=== PATIENT | male | born 1955 | race Caucasian/White ===

== ENCOUNTER 2018-05-31 11:28 | Emergency (ER) | payer MEDICAID, OTHER ==
--- NOTE | 2018-05-31 11:35 | ERPHSYRPT ---
- History of Present Illness Time Seen by Provider: 05/31/18 11:34 Source: patient, police Exam Limitations: no limitations Physician History: 62 y/o white male brought into ED by police for medical clearance to go to prison. pt was asleep in a running car on private property. police notified and approached vehicle. pt was slow to respond, incoherent initially then dishonest with police. pt failed field sobriety testing. 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 police office states pt is much more coherent now. pt denies cp, soa, abd pain. Timing/Duration: today Severity of Symptoms-Max: moderate Severity of Symptoms-Current: mild Suicidal thoughts: other (none. pt denies suicidal or homicidal ideation/intent) Associated Symptoms: impaired concentration, ingestion, No suicidal ideation Previous symptoms: same symptoms as today - Past Medical History Neurological History: No Pertinent History ENT History: No Pertinent History Cardiac History: No Pertinent History Respiratory History: No Pertinent History Endocrine Medical History: No Pertinent History Musculoskeletal History: No Pertinent History GI Medical History: No Pertinent History History: No Pertinent History Psycho-Social History: No Pertinent History Male Reproductive Disorders: No Pertinent History - Past Surgical History Neuro Surgical History: No Pertinent History Cardiac: No Pertinent History Respiratory: No Pertinent History Gastrointestinal: No Pertinent History Genitourinary: No Pertinent History Musculoskeletal: No Pertinent History Male Surgical History: No Pertinent History - Social History Drug Use: methamphetamines - Review of Systems Constitutional: No Symptoms Eyes: No Symptoms Ears, Nose, & Throat: No Symptoms Respiratory: No Symptoms Cardiac: No Symptoms Abdominal/Gastrointestinal: No Symptoms Genitourinary Symptoms: No Symptoms Skin: Other (diaphoretic per police investigator on arrival) Neurological: No Symptoms Psychological: No Symptoms Endocrine: No Symptoms Hematologic/Lymphatic: No Symptoms Immunological/Allergic: No Symptoms All Other Systems: Reviewed and Negative - Nursing Vital Signs Nursing Vital Signs: Initial Vital Signs Temperature 97.9 F 05/31/18 11:33 Pulse Rate 100 H 05/31/18 11:33 Respiratory Rate 16 05/31/18 11:33 Blood Pressure 183/126 05/31/18 11:33 O2 Sat by Pulse Oximetry 96 05/31/18 11:33 Pain Scale Pain Intensity 0 - Physical Exam General Appearance: no apparent distress, alert, anxiety Eyes, Ears, Nose, Throat Exam: normal ENT inspection, moist mucous membranes Neck Exam: normal inspection, non-tender, supple, full range of motion Respiratory Exam: normal breath sounds, lungs clear, airway intact, No chest tenderness, No respiratory distress Cardiovascular Exam: regular rate/rhythm, normal heart sounds, normal peripheral pulses Gastrointestinal/Abdominal Exam: soft, normal bowel sounds, No tenderness, No guarding, No rebound Extremities Exam: normal inspection, normal range of motion, No evidence of injury Current Suicidality: denies suicide plan Neurological Exam: alert, calm, 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 Appearance: disheveled, impaired insight Behavior/Eye Contact/Speech: alert & cooperative, avoids eye contact Thoughts/Hallucinations: no apparent hallucination Skin Exam: normal color, warm, dry SpO2 Interpretation: normal O2 Delivery: Room Air - Course Nursing assessment & vital signs reviewed: Yes EKG Interpreted by Me: RATE (91), Sinus Rhythm, NORMAL AXIS, NORMAL INTERVALS, NORMAL QRS, Non-specific ST Changes Ordered Tests: Active Orders 24 hr Category Date Time Status Career Education Teacher STAT Care 05/31/18 11:38 Active Clean Catch Urine Specimen STAT Care 05/31/18 11:38 Active EKG-ER Only STAT Care 05/31/18 11:38 Active IV Insertion STAT Care 05/31/18 11:38 Active ACETAMINOPHEN Stat Lab 05/31/18 11:38 Completed CBC W DIFF Stat Lab 05/31/18 11:38 Completed CMP Stat Lab 05/31/18 11:38 Completed ETHYL ALCOHOL Stat Lab 05/31/18 11:38 Completed Manual Differential NC Stat Lab 05/31/18 11:38 Completed SALICYLATE Stat Lab 05/31/18 11:38 Completed UA W/RFX UR CULTURE Stat Lab 05/31/18 12:49 Completed Urine Triage Profile Stat Lab 05/31/18 12:49 Completed Medication Summary Discontinued Medications Generic Name Dose Route Start Last Admin Trade Name Freq PRN Reason Stop Dose Admin Sodium Chloride 1,000 mls @ 999 mls/hr 05/31/18 11:38 05/31/18 12:57 Sodium Chloride 0.9% 1000 Ml IV 05/31/18 12:38 Infused .Q1H1M STA Infusion Sodium Chloride Confirm 05/31/18 11:49 Sodium Chloride 0.9% 1000 Ml Administered 05/31/18 11:50 Dose 1,000 mls @ ud .ROUTE .STK-MED ONE Lorazepam 1 mg 05/31/18 11:58 05/31/18 12:09 Ativan 2 Mg/1 Ml Vial IV 05/31/18 11:59 Not Given STAT ONE Lorazepam 2 mg 05/31/18 12:07 05/31/18 12:12 Ativan 2 Mg/1 Ml Vial IV 05/31/18 12:08 2 mg STAT ONE Administration Lorazepam Confirm 05/31/18 12:10 Ativan 2 Mg/1 Ml Vial Administered 05/31/18 12:11 Dose 2 mg .ROUTE .STK-MED ONE Lab/Rad Data: Laboratory Result Diagrams 05/31/18 11:38 05/31/18 11:38 Laboratory Results 05/31/18 05/31/18 05/31/18 Range/Units 12:49 12:49 11:38 WBC (4.0-10.5) K/mm3 RBC (4.1-5.6) M/mm3 Hgb (12.5-18.0) gm/dl Hct (42-50) % MCV (78-100) fl MCH (26-32) pg MCHC (32-36) g/dl RDW (11.5-14.0) % Plt Count (150-450) K/mm3 MPV (6-9.5) fl Sodium 143 (137-145) mmol/L Potassium 4.0 (3.5-5.1) mmol/L Chloride 109 H (98-107) mmol/L Carbon Dioxide 26 (22-30) mmol/L Anion Gap 11.3 (5-15) MEQ/L BUN 13 (9-20) mg/dL Creatinine 0.98 (0.66-1.25) mg/dL Estimated GFR > 60.0 ML/MIN Glucose 122 H (74-106) mg/dL Calcium 8.5 (8.4-10.2) mg/dL Total Bilirubin 0.70 (0.2-1.3) mg/dL AST 20 (17-59) U/L ALT 18 (0-50) U/L Alkaline Phosphatase 61 (38-126) U/L Serum Total Protein 7.0 (6.3-8.2) g/dL Albumin 3.7 (3.5-5.0) g/dL Urine Color YELLOW (YELLOW) Urine Appearance CLEAR (CLEAR) Urine pH 6.0 (5-6) Ur Specific Douglas 1.023 (1.005-1.025) Urine Protein NEGATIVE (Negative) Urine Ketones NEGATIVE (NEGATIVE) Urine Blood NEGATIVE (0-5) Leonard/ul Urine Nitrite NEGATIVE (NEGATIVE) Urine Bilirubin NEGATIVE (NEGATIVE) Urine Urobilinogen 2 (0-1) mg/dL Ur Leukocyte Esterase NEGATIVE (NEGATIVE) Urine WBC (Auto) 0-2 (0-5) /HPF Urine RBC (Auto) NONE (0-2) /HPF U Epithel Cells (Auto) NONE (FEW) /HPF Urine Bacteria (Auto) NONE (NEGATIVE) /HPF Urine Mucus (Auto) SLIGHT (NEGATIVE) /HPF Urine Culture Reflexed NO (NO) Urine Glucose NEGATIVE (NEGATIVE) mg/dL Salicylates < 1.0 L (2-20) mg/dL Urine Opiates Level NEGATIVE (NEGATIVE) Ur Methadone NEGATIVE (NEGATIVE) Acetaminophen < 10 L (10-30) ug/ml Urine Barbiturates NEGATIVE (NEGATIVE) Ur Phencyclidine (PCP) NEGATIVE (NEGATIVE) Urine Amphetamine POSITIVE (NEGATIVE) U Benzodiazepine Level NEGATIVE (NEGATIVE) Urine Cocaine NEGATIVE (NEGATIVE) Urine Marijuana (THC) NEGATIVE (NEGATIVE) Ethyl Alcohol < 10 (0-10) mg/dL 05/31/18 Range/Units 11:38 WBC 14.5 H (4.0-10.5) K/mm3 RBC 5.66 H (4.1-5.6) M/mm3 Hgb 16.9 (12.5-18.0) gm/dl Hct 51.7 H (42-50) % MCV 91.3 (78-100) fl MCH 29.8 (26-32) pg MCHC 32.7 (32-36) g/dl RDW 14.7 H (11.5-14.0) % Plt Count 505 H (150-450) K/mm3 MPV 9.2 (6-9.5) fl Sodium (137-145) mmol/L Potassium (3.5-5.1) mmol/L Chloride (98-107) mmol/L Carbon Dioxide (22-30) mmol/L Anion Gap (5-15) MEQ/L BUN (9-20) mg/dL Creatinine (0.66-1.25) mg/dL Estimated GFR ML/MIN Glucose (74-106) mg/dL Calcium (8.4-10.2) mg/dL Total Bilirubin (0.2-1.3) mg/dL AST (17-59) U/L ALT (0-50) U/L Alkaline Phosphatase (38-126) U/L Serum Total Protein (6.3-8.2) g/dL Albumin (3.5-5.0) g/dL Urine Color (YELLOW) Urine Appearance (CLEAR) Urine pH (5-6) Ur Specific Douglas (1.005-1.025) Urine Protein (Negative) Urine Ketones (NEGATIVE) Urine Blood (0-5) Leonard/ul Urine Nitrite (NEGATIVE) Urine Bilirubin (NEGATIVE) Urine Urobilinogen (0-1) mg/dL Ur Leukocyte Esterase (NEGATIVE) Urine WBC (Auto) (0-5) /HPF Urine RBC (Auto) (0-2) /HPF U Epithel Cells (Auto) (FEW) /HPF Urine Bacteria (Auto) (NEGATIVE) /HPF Urine Mucus (Auto) (NEGATIVE) /HPF Urine Culture Reflexed (NO) Urine Glucose (NEGATIVE) mg/dL Salicylates (2-20) mg/dL Urine Opiates Level (NEGATIVE) Ur Methadone (NEGATIVE) Acetaminophen (10-30) ug/ml Urine Barbiturates (NEGATIVE) Ur Phencyclidine (PCP) (NEGATIVE) Urine Amphetamine (NEGATIVE) U Benzodiazepine Level (NEGATIVE) Urine Cocaine (NEGATIVE) Urine Marijuana (THC) (NEGATIVE) Ethyl Alcohol (0-10) mg/dL - Progress Progress: improved, re-examined Progress Note: 05/31/18 13:54 no cp, no soa, no cp. pt moves all ext. Counseled pt/family regarding: lab results, diagnosis, need for follow-up - Departure Time of Disposition: 13:54 Departure Disposition: Snf/Penitentiary Clinical Impression: Methamphetamine abuse, Medical clearance for incarceration Condition: Stable Critical Care Time: No Referrals: SCREEN,DRUG [NON-STAFF PHY W/O PRIVILEGES] -
[2018-05-31] MEDS ORDERED: Sodium Chloride 0.9% 1000 ML 1,000 ML IV STA (11:38)
[2018-05-31] MEDS ORDERED: Sodium Chloride 0.9% 1000 ML 1,000 ML ONE (11:49)
[2018-05-31 11:56] LABS: Hematocrit 51.7 % (42-50); Hemoglobin 16.9 gm/dl (12.5-18.0); Mean Cell Volume 91.3 fl (78-100); Mean Corpuscular Hgb Concent. 32.7 g/dl (32-36); Mean Platelet Volume 9.2 fl (6-9.5); Platelet Count 505 K/mm3 (150-450); Red Blood Count 5.66 M/mm3 (4.1-5.6); Red Cell Distribution Width 14.7 % (11.5-14.0); White Blood Count 14.5 K/mm3 (4.0-10.5)
[2018-05-31] MEDS ORDERED: Ativan 2 MG/1 ML VIAL IV ONE ×2 (11:58→12:07)
[2018-05-31 12:03] LABS: Mean Corpuscular Hemoglobin 29.8 pg (26-32)
[2018-05-31] MEDS ORDERED: Ativan 2 MG/1 ML VIAL ONE (12:10)
[2018-05-31 12:33] LABS: ALBUMIN 3.7 g/dL (3.5-5.0); ALKALINE PHOSPHATASE 61 U/L (38-126); ANION GAP 11.3 MEQ/L (5-15); BLOOD UREA NITROGEN 13 mg/dL (9-20); CHLORIDE 109 mmol/L (98-107); Calcium 8.5 mg/dL (8.4-10.2); Carbon Dioxide 26 mmol/L (22-30); Creatinine 1 0.98 mg/dL (0.66-1.25); Glucose 122 mg/dL (74-106); SGOT/AST 20 U/L (17-59); SGPT/ALT 18 U/L (0-50); SODIUM 143 mmol/L (137-145)
[2018-05-31 12:39] LABS: ACETAMINOPHEN < 10 ug/ml (10-30); ETHYL ALCOHOL < 10 mg/dL (0-10); SALICYLATE < 1.0 mg/dL (2-20)
[2018-05-31 12:53] VITALS: O2SAT 98
[2018-05-31 13:13] LABS: Appearance CLEAR (CLEAR); Bilirubin NEGATIVE (NEGATIVE); Blood NEGATIVE Ery/ul (0-5); Glucose NEGATIVE (NEGATIVE); Ketones NEGATIVE (NEGATIVE); Leukocyte Esterase NEGATIVE (NEGATIVE); Mucus SLIGHT /HPF (NEGATIVE); Nitrite NEGATIVE (NEGATIVE); Protein,Urine Dip NEGATIVE (Negative); Specific Gravity 1.023 (1.005-1.025); Urobilinogen 2 mg/dL (0-1); WBC 0-2 /HPF (0-5)
[2018-05-31 13:19] LABS: Barbiturate,Urine NEGATIVE (NEGATIVE); Benzodiazepine,Urine NEGATIVE (NEGATIVE); Cocaine,Urine NEGATIVE (NEGATIVE); Methadone,Urine NEGATIVE (NEGATIVE); Opiate,Urine NEGATIVE (NEGATIVE); PCP,Urine NEGATIVE (NEGATIVE); THC,Urine NEGATIVE (NEGATIVE)
[2018-05-31 13:48] LABS: Amphetamine,Urine POSITIVE (NEGATIVE)
[2018-05-31 13:55] VITALS: BP 152/101; PULSE 69
[2018-05-31 14:57] LABS: Eosinophil 2 % (0.00-3.0); Lymphocytes 19 % (24-44); Monocyte 7 % (0.0-12.0); Neutrophils 72 % (36.-66.); Total Cells Counted 100; Toxic Granulation 1+
[2018-05-31 14:58] LABS: Platelet Estimate INCREASED (NORMAL)
== END 2018-05-31 14:05 | disposition home or self-care (01) ==
LOC: ED 11:28
DX: F15.10 Other stimulant abuse, uncomplicated (principal)
CPT/HCPCS: 36000; 36415; 80053; 80307; 81001; 85025; 93005; 93041; 96360; 96374; 99284; G0481; 96375; J2060; G0480

== ENCOUNTER 2018-06-03 20:11 | Emergency (ER) | payer MEDICAID, OTHER ==
[2018-06-03 20:38] LABS: BASOPHIL % 0.5 % (0.0-0.4); Basophil (Absolute #) 0.06 (0-0.4); Eosinophil % 0.7 % (0.00-5.0); Eosinophil (Absolute #) 0.09 (0-0.5); Granulocyte Absolute (ANC) 7.07 (1.4-6.9); Hematocrit 51.5 % (42-50); Hemoglobin 17.3 gm/dl (12.5-18.0); Lymphocytes % 32.7 % (24.0-44.0); Mean Cell Volume 89.3 fl (78-100); Mean Corpuscular Hgb Concent. 33.6 g/dl (32-36); Monocyte (Absolute #) 1.42 (0.0-1.3); Monocytes % 11.1 % (0.0-12.0); Platelet Count 566 K/mm3 (150-450); Red Blood Count 5.77 M/mm3 (4.1-5.6); White Blood Count 12.8 K/mm3 (4.0-10.5)
[2018-06-03 20:39] LABS: Mean Corpuscular Hemoglobin 29.9 pg (26-32)
--- NOTE | 2018-06-03 20:42 | ERPHSYRPT ---
- History of Present Illness Time Seen by Provider: 06/03/18 20:37 Source: patient Exam Limitations: no limitations Physician History: 62-year-old white male long-term patient brought from the long-term with complaints that the patient was complaining of numbness of his left hand and his left side of his face symptoms one hour ago he states he continues to feel this way he states at the same time he had a brief episode where he felt pressure on the left anterior side of his chest like someone was sitting on it. He denies any shortness of breath he apparently did have an elevated blood pressure at the long-term. Patient did not have any speech or movement disorders during his symptoms. Past medical history patient denies past surgical history patient denies. Social history patient states he uses methamphetamines on occasions and also uses tobacco. Timing/Duration: today (one hour ago) Severity: moderate Modifying Factors: Improves With: nothing Associated Symptoms: chest pain (left-sided chest pain), other (paresthesia left hand and face), No nausea, No vomiting, No abdominal pain, No shortness of breath, No heartburn, No diaphoresis, No cough, No chills, No fever, No headaches, No loss of appetite, No malaise, No syncope, No seizure, No weakness Allergies/Adverse Reactions: Penicillins Allergy (Verified 06/03/18 20:38) Home Medications: No Reportable Medications [No Reported Medications] 05/31/18 [History] Hx Tetanus, Diphtheria Vaccination/Date Given: No Hx Influenza Vaccination/Date Given: No Hx Pneumococcal Vaccination/Date Given: No - Review of Systems Constitutional: No Fever, No Chills Eyes: No Symptoms Ears, Nose, & Throat: No Symptoms Respiratory: No Cough, No Dyspnea Cardiac: Chest Pain, No Edema, No Palpitations, No Syncope, No Orthopnea, No PND , No Other Abdominal/Gastrointestinal: No Abdominal Pain, No Nausea, No Vomiting, No Diarrhea Genitourinary Symptoms: No Dysuria Musculoskeletal: No Back Pain, No Neck Pain Skin: No Rash Neurological: Parasthesia, Sensory Changes (paresthesia left hand and face), No Dizziness, No Focal Weakness, No Gait Changes, No Headache, No Irritability, No Lethargy, No Paralysis, No Seizure, No Speech Changes, No Tics, No Tremors, No Vertigo Psychological: No Symptoms, Drug Abuse (history of methamphetamie use) All Other Systems: Reviewed and Negative - Past Medical History Pertinent Past Medical History: No Neurological History: No Pertinent History ENT History: No Pertinent History Cardiac History: No Pertinent History Respiratory History: No Pertinent History Endocrine Medical History: No Pertinent History Musculoskeletal History: No Pertinent History GI Medical History: No Pertinent History History: No Pertinent History Psycho-Social History: No Pertinent History Male Reproductive Disorders: No Pertinent History - Past Surgical History Past Surgical History: Yes Neuro Surgical History: No Pertinent History Cardiac: No Pertinent History Respiratory: No Pertinent History Gastrointestinal: No Pertinent History Genitourinary: No Pertinent History Musculoskeletal: No Pertinent History Male Surgical History: No Pertinent History Other Surgical History: SPLEEN REMOVED - Social History Smoking Status: Current every day smoker How long have you smoked: YRS Exposure to second hand smoke: No Drug Use: methamphetamines Patient Lives Alone: No - Nursing Vital Signs Nursing Vital Signs: Initial Vital Signs Pulse Rate 82 06/03/18 20:12 Respiratory Rate 18 06/03/18 20:12 Blood Pressure 190/109 06/03/18 20:12 O2 Sat by Pulse Oximetry 100 06/03/18 20:12 Pain Scale Pain Intensity 0 - Physical Exam General Appearance: no apparent distress, alert Eye Exam: PERRL/EOMI, eyes nml inspection, other (fundi are unremarkable) Ears, Nose, Throat Exam: normal ENT inspection, TMs normal, pharynx normal, moist mucous membranes Neck Exam: normal inspection, non-tender, supple, full range of motion Respiratory Exam: normal breath sounds, lungs clear, No respiratory distress Cardiovascular Exam: regular rate/rhythm, normal heart sounds, normal peripheral pulses, capillary refill <2 sec Gastrointestinal/Abdomen Exam: soft, normal bowel sounds, No tenderness, No mass Back Exam: normal inspection, normal range of motion, No CVA tenderness, No vertebral tenderness Extremity Exam: normal inspection, normal range of motion, pelvis stable Neurologic Exam: alert, oriented x 3, cooperative, museum exhibit designer II-XII 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, normal mood/affect, nml cerebellar function, nml station & gait, sensation nml, other (patient is alert, oriented 3, no facial droop, speech normal, silk screen layout drafter equal and symmetrical 5/5, normal finger to nose, no pronator drift ,cranial nerves II through XII intact, full range of motion all extremities, no sensory deficits noted, GCS equals 15(), No motor deficits Skin Exam: normal color, warm, dry, No rash SpO2 Interpretation: normal - Course Nursing assessment & vital signs reviewed: Yes EKG Interpreted by Me: RATE (77 bpm), Sinus Rhythm, NORMAL AXIS, Other (EKG: Sinus rhythm, 77 bpm, normal axis, no acute ST or T wave changes) - Radiology Exams Chest X-ray Interpretation: Interpreted by me (no acute disease process) - CT Exams Head CT Interpretation: Tele-radiologist Report (head CT: Impression: No acute intracranial hemorrhage. Ill-defined areas of hypodensity possibly related to small vessel ischemic change with questionable prior right parietal lobe infarct. Further characterization with MRI should be considered.) Ordered Tests: Active Orders 24 hr Category Date Time Status Metal Sprayer Machined Parts STAT Care 06/03/18 20:23 Active EKG-ER Only STAT Care 06/03/18 20:23 Active IV Insertion STAT Care 06/03/18 20:23 Active Pulse Oximetry (ED) STAT Care 06/03/18 20:23 Active Tele-Health Consult ROUTINE Cons 06/03/18 21:07 Active CHEST 1 VIEW (PORTABLE) Stat Exams 06/03/18 20:47 Taken HEAD WITHOUT CONTRAST [CT] Stat Exams 06/03/18 20:24 Taken CBC W DIFF Stat Lab 06/03/18 20:34 Completed CMP Stat Lab 06/03/18 20:34 Completed PROTIME WITH INR Stat Lab 06/03/18 20:34 Completed PTT Stat Lab 06/03/18 20:30 Completed TROPONIN Q3H Lab 06/03/18 20:34 Completed TROPONIN Q3H Lab 06/03/18 23:30 Ordered TROPONIN Q3H Lab 06/04/18 02:30 Ordered TROPONIN Q3H Lab 06/04/18 05:30 Ordered TROPONIN Q3H Lab 06/04/18 08:30 Ordered Urine Triage Profile Stat Lab 06/03/18 21:10 Completed Medication Summary Discontinued Medications Generic Name Dose Route Start Last Admin Trade Name Freq PRN Reason Stop Dose Admin Aspirin 324 mg 06/03/18 22:04 06/03/18 22:10 Baby Aspirin 81 Mg Chew PO 06/03/18 22:05 324 mg STAT ONE Administration Aspirin Confirm 06/03/18 22:09 Baby Aspirin 81 Mg Chew Administered 06/03/18 22:10 Dose 324 mg .ROUTE .STProposify-Pricebets ONE Lab/Rad Data: Laboratory Result Diagrams 06/03/18 20:34 06/03/18 20:34 Laboratory Results 06/03/18 06/03/18 06/03/18 Range/Units 21:10 20:34 20:34 WBC (4.0-10.5) K/mm3 RBC (4.1-5.6) M/mm3 Hgb (12.5-18.0) gm/dl Hct (42-50) % MCV (78-100) fl MCH (26-32) pg MCHC (32-36) g/dl RDW (11.5-14.0) % Plt Count (150-450) K/mm3 MPV (6-9.5) fl Gran % (36.0-66.0) % Eos # (Auto) (0-0.5) Absolute Lymphs (auto) (1.0-4.6) Absolute Monos (auto) (0.0-1.3) Lymphocytes % (24.0-44.0) % Monocytes % (0.0-12.0) % Eosinophils % (0.00-5.0) % Basophils % (0.0-0.4) % Absolute Granulocytes (1.4-6.9) Basophils # (0-0.4) PT 12.5 (8.83-12.87) SECONDS INR 1.07 (0.8-3.0) APTT (24.1-36.1) SECONDS Sodium (137-145) mmol/L Potassium (3.5-5.1) mmol/L Chloride (98-107) mmol/L Carbon Dioxide (22-30) mmol/L Anion Gap (5-15) MEQ/L BUN (9-20) mg/dL Creatinine (0.66-1.25) mg/dL Estimated GFR ML/MIN Glucose (74-106) mg/dL Calcium (8.4-10.2) mg/dL Total Bilirubin (0.2-1.3) mg/dL AST (17-59) U/L ALT (0-50) U/L Alkaline Phosphatase (38-126) U/L Troponin I < 0.012 (0.000-0.034) ng/mL Serum Total Protein (6.3-8.2) g/dL Albumin (3.5-5.0) g/dL Urine Opiates Level NEGATIVE (NEGATIVE) Ur Methadone NEGATIVE (NEGATIVE) Urine Barbiturates NEGATIVE (NEGATIVE) Ur Phencyclidine (PCP) NEGATIVE (NEGATIVE) Urine Amphetamine POSITIVE (NEGATIVE) U Benzodiazepine Level NEGATIVE (NEGATIVE) Urine Cocaine NEGATIVE (NEGATIVE) Urine Marijuana (THC) NEGATIVE (NEGATIVE) 06/03/18 06/03/18 06/03/18 Range/Units 20:34 20:34 20:30 WBC 12.8 H (4.0-10.5) K/mm3 RBC 5.77 H (4.1-5.6) M/mm3 Hgb 17.3 (12.5-18.0) gm/dl Hct 51.5 H (42-50) % MCV 89.3 (78-100) fl MCH 29.9 (26-32) pg MCHC 33.6 (32-36) g/dl RDW 14.0 (11.5-14.0) % Plt Count 566 H (150-450) K/mm3 MPV 9.0 (6-9.5) fl Gran % 55.0 (36.0-66.0) % Eos # (Auto) 0.09 (0-0.5) Absolute Lymphs (auto) 4.20 (1.0-4.6) Absolute Monos (auto) 1.42 H (0.0-1.3) Lymphocytes % 32.7 (24.0-44.0) % Monocytes % 11.1 (0.0-12.0) % Eosinophils % 0.7 (0.00-5.0) % Basophils % 0.5 (0.0-0.4) % Absolute Granulocytes 7.07 H (1.4-6.9) Basophils # 0.06 (0-0.4) PT (8.83-12.87) SECONDS INR (0.8-3.0) APTT 31.3 (24.1-36.1) SECONDS Sodium 142 (137-145) mmol/L Potassium 4.0 (3.5-5.1) mmol/L Chloride 104 (98-107) mmol/L Carbon Dioxide 29 (22-30) mmol/L Anion Gap 12.8 (5-15) MEQ/L BUN 16 (9-20) mg/dL Creatinine 1.06 (0.66-1.25) mg/dL Estimated GFR > 60.0 ML/MIN Glucose 82 (74-106) mg/dL Calcium 9.3 (8.4-10.2) mg/dL Total Bilirubin 0.50 (0.2-1.3) mg/dL AST 22 (17-59) U/L ALT 20 (0-50) U/L Alkaline Phosphatase 73 (38-126) U/L Troponin I (0.000-0.034) ng/mL Serum Total Protein 8.3 H (6.3-8.2) g/dL Albumin 4.6 (3.5-5.0) g/dL Urine Opiates Level (NEGATIVE) Ur Methadone (NEGATIVE) Urine Barbiturates (NEGATIVE) Ur Phencyclidine (PCP) (NEGATIVE) Urine Amphetamine (NEGATIVE) U Benzodiazepine Level (NEGATIVE) Urine Cocaine (NEGATIVE) Urine Marijuana (THC) (NEGATIVE) - Progress Progress: improved Progress Note: 06/03/18 20:44 This is a 62-year-old white male brought from the long-term he arrives with complaint of paresthesias to the left side of his face and left hand which is associated with a pressure-like pain in his left anterior chest which occurred while he was at rest one hour ago He states he continues to have the paresthesia there is no visible droops in his face and he has normal neurologic exam silk screen layout drafter are equal and symmetrical 5 over 5 normal finger to nose sensation seems to be intact to all extremities. Cranial nerves II through XII are intact DTRs symmetrical 2 over 4 [place] Coma Scale is 15. He states that his of pain in his left anterior chest lasted for a few minutes however spontaneously resolved he does state he still feels some paresthesias to his left hand. Past medical history patient denies past surgical history patient denies. Patient does state he uses methamphetamines he also uses tobacco he denies alcohol use. CT of the patient's head has been ordered as is EKG which shows a normal sinus rhythm 77 bpm normal axis no acute ST or T wave changes are noted. Will go ahead and obtain CBC CMP UA, UDS. Troponin. 06/03/18 22:01 Patient is evaluated by telephone neurology. Neurologist stated that he doesn't think that the patient has had a stroke however he can't completely rule it out he thinks the patient might have some type of carpal tunnel. He recommended patient have an MRI tomorrow or tonight. Patient's refusing transfer to regional and refusing MRI. Will give patient aspirin 324 mg orally of discussed this with the neurologist Dr. Muñoz. He is okay with the aspirin. Will plan to release patient if repeat troponin within normal limits. Patient does not show any focal deficits. CT of the head remarkable for no acute intracranial hemorrhage. Ill-defined areas of hypodensity possibly related to small vessel ischemic change with questionable prior right parietal lobe infarct. Further characterization with MRI should be considered. Impression 1 left hand paresthesia. 2. Left face paresthesia. 3. Chest pain. 06/03/18 22:32 I had planned to keep the patient for a second troponin however he does not want to stay for this. I have told the patient I cannot completely rule out chest pain of cardiac etiology without 2 troponins he is aware of this and still wants to leave. The patient's blood pressure spontaneously coming down he did have a positive methamphetamine in his urine. Patient appears to be stable will discharge patient. Will have patient continue aspirin 81 mg orally daily. He is to follow-up with the long-term doctor. He is return for acute distress or for severe symptoms. - Departure Time of Disposition: 22:33 Departure Disposition: Snf/Group Home Clinical Impression: Facial paresthesia, Paresthesias in left hand, Methamphetamine abuse Chest pain Qualifiers: Chest pain type: unspecified Qualified Code(s): R07.9 - Chest pain, unspecified Condition: Fair Critical Care Time: No Referrals: DOCTOR,NO FAMILY [Primary Care Provider] - Instructions: Paresthesias (DC) Additional Instructions: Return home. Aspirin 81 mg orally daily. Follow-up with long-term doctor. Return for acute distress or for severe symptoms.
[2018-06-03 20:45] VITALS: O2SAT 99
[2018-06-03 20:45] LABS: INR 1.07 (0.8-3.0); PROTIME 12.5 SECONDS (8.83-12.87)
[2018-06-03 20:50] LABS: ALBUMIN 4.6 g/dL (3.5-5.0); ALKALINE PHOSPHATASE 73 U/L (38-126); ANION GAP 12.8 MEQ/L (5-15); BLOOD UREA NITROGEN 16 mg/dL (9-20); CHLORIDE 104 mmol/L (98-107); Calcium 9.3 mg/dL (8.4-10.2); Carbon Dioxide 29 mmol/L (22-30); Creatinine 1 1.06 mg/dL (0.66-1.25); Glucose 82 mg/dL (74-106); SGOT/AST 22 U/L (17-59); SGPT/ALT 20 U/L (0-50); SODIUM 142 mmol/L (137-145); Total Protein 8.3 g/dL (6.3-8.2)
[2018-06-03 21:16] VITALS: PULSE 75
[2018-06-03 21:29] LABS: Barbiturate,Urine NEGATIVE (NEGATIVE); Benzodiazepine,Urine NEGATIVE (NEGATIVE); Cocaine,Urine NEGATIVE (NEGATIVE); Methadone,Urine NEGATIVE (NEGATIVE); Opiate,Urine NEGATIVE (NEGATIVE); PCP,Urine NEGATIVE (NEGATIVE); THC,Urine NEGATIVE (NEGATIVE)
[2018-06-03 21:59] LABS: Amphetamine,Urine POSITIVE (NEGATIVE)
[2018-06-03] MEDS ORDERED: BABY ASPIRIN 81 MG CHEW PO ONE (22:04)
[2018-06-03] MEDS ORDERED: BABY ASPIRIN 81 MG CHEW ONE (22:09)
[2018-06-03 22:33] VITALS: BP 176/99
--- NOTE | 2018-06-04 07:18 | XRAY ---
Indication: Left facial and arm numbness. No known injury. Multiple contiguous axial images obtained through the head without contrast. Comparison: None Age-appropriate global atrophy and moderate periventricular degenerative micro-ischemia bilaterally. Small remote right parietal infarct near the vertex. Multifocal remote lacunar infarcts in both thalami, left basal ganglia, and left caudate head. No acute intracranial hemorrhage, abnormal extra-axial fluid collection, or mass effect. Fourth ventricle is midline without hydrocephalus. Bony calvarium intact. Visualized paranasal sinuses and mastoid air cells are clear. Impression: 1. Aging brain including atrophy and degenerative micro-ischemia. 2. 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 3. No acute intracranial abnormalities. Comment: Preliminary interpretation was made by [facility]. No critical discrepancy. CTDI 69.52
--- NOTE | 2018-06-04 07:21 | XRAY ---
Indication: Left facial and arm numbness. Comparison: None Portable chest demonstrates left base discoid atelectasis/scarring and right midlung calcified granuloma. Remaining lungs clear. Heart is not enlarged. Descending aorta tortuous. Bony thorax intact with mild degenerative changes. Impression: Nonacute chest with chronic features.
== END 2018-06-03 22:41 | disposition home or self-care (01) ==
LOC: ED 20:11
DX: R20.2 Paresthesia of skin (principal); F15.10 Other stimulant abuse, uncomplicated; Z72.0 Tobacco use; R07.9 Chest pain, unspecified
CPT/HCPCS: 36000; 36415; 70450; 71045; 80053; 80307; 84484; 85025; 85610; 85730; 93005; 93041; 99284; A9270-GY

== ENCOUNTER 2018-06-04 21:13 | Emergency (ER) | payer OTHER, MEDICAID ==
--- NOTE | 2018-06-04 22:55 | ERPHSYRPT ---
- History of Present Illness Time Seen by Provider: 06/04/18 22:44 Source: patient Exam Limitations: no limitations Patient Subjective Stated Complaint: kylah states that he took pt's bp at [facility]f and called nurse with it ans was told to take pt to the er. can not remember what bp at alf was. pt denies any headache or blurred vision Triage Nursing Assessment: pt alert and oriented, asnwers question approp. pt ambulatory with steady gait noted. respriations nonlabored with lungs ct. pupils equal and reactive. bilat upper and lower ext strength wnl Physician History: 62-year-old white male with history of methamphetamine abuse and is currently residing at the alf. Patient was seen here yesterday with complaint of left hand left facial numbness (paresthesia). Patient had a rather extensive workup including head CT CBC CMP troponin EKG He also had a tele-neuro examination the neurologist felt that the patient most likely did not have a stroke however he recommended possible MRI. Patient actually refused repeat troponin he also refused MRI patient was placed on aspirin and was discharged in stable condition. Apparently at the alf patient was noted today to have an elevated blood pressure he has no new symptoms he still has paresthesias to the left hand and face he has no focal deficits. The nurse at the alf apparently referred the patient to this hospital ER. Because of the patient's blood pressure. Past medical history is positive for methamphetamine abuse Patient was given aspirin yesterday and told to continue aspirin at the alf. Timing/Duration: other (paresthesia left hand and face since yesterday) Modifying Factors: Improves With: nothing Associated Symptoms: other (Paresthesia left hand and face since yesterday), No nausea, No vomiting, No abdominal pain, No shortness of breath, No heartburn, No diaphoresis, No cough, No chills, No chest pain, No fever, No headaches, No loss of appetite, No malaise, No syncope, No seizure, No weakness Allergies/Adverse Reactions: Penicillins Allergy (Verified 06/04/18 21:40) Hx Tetanus, Diphtheria Vaccination/Date Given: No Hx Influenza Vaccination/Date Given: No Hx Pneumococcal Vaccination/Date Given: No Immunizations Up to Date: No - Review of Systems Constitutional: No Fever, No Chills Eyes: No Symptoms Ears, Nose, & Throat: No Symptoms Respiratory: No Cough, No Dyspnea Cardiac: No Chest Pain, No Edema, No Syncope Abdominal/Gastrointestinal: No Abdominal Pain, No Nausea, No Vomiting, No Diarrhea Genitourinary Symptoms: No Symptoms, No Dysuria Musculoskeletal: No Back Pain, No Neck Pain Skin: No Rash Neurological: Parasthesia (paresthesia left hand and face since yesterday), No Dizziness, No Focal Weakness, No Sensory Changes Psychological: No Symptoms Endocrine: No Symptoms All Other Systems: Reviewed and Negative - Past Medical History Pertinent Past Medical History: Yes Neurological History: No Pertinent History ENT History: No Pertinent History Cardiac History: No Pertinent History Respiratory History: No Pertinent History Endocrine Medical History: No Pertinent History Musculoskeletal History: No Pertinent History GI Medical History: No Pertinent History History: No Pertinent History Psycho-Social History: No Pertinent History Male Reproductive Disorders: No Pertinent History - Past Surgical History Past Surgical History: Yes Neuro Surgical History: No Pertinent History Cardiac: No Pertinent History Respiratory: No Pertinent History Gastrointestinal: No Pertinent History Genitourinary: No Pertinent History Musculoskeletal: No Pertinent History Male Surgical History: No Pertinent History Other Surgical History: SPLEEN REMOVED - Social History Smoking Status: Current every day smoker How long have you smoked: YRS Exposure to second hand smoke: No Drug Use: methamphetamines Patient Lives Alone: No - Nursing Vital Signs Nursing Vital Signs: Initial Vital Signs Temperature 98.1 F 06/04/18 21:20 Pulse Rate 75 06/04/18 21:20 Respiratory Rate 18 06/04/18 21:20 Blood Pressure 167/107 06/04/18 21:20 O2 Sat by Pulse Oximetry 98 06/04/18 21:20 Pain Scale Pain Intensity 0 - Physical Exam General Appearance: no apparent distress, alert Eye Exam: PERRL/EOMI (MRI G wouldn't do it), eyes nml inspection Ears, Nose, Throat Exam: normal ENT inspection, TMs normal, pharynx normal, moist mucous membranes Neck Exam: normal inspection, non-tender, supple, full range of motion Respiratory Exam: normal breath sounds Cardiovascular Exam: regular rate/rhythm, normal heart sounds, normal peripheral pulses, capillary refill <2 sec Gastrointestinal/Abdomen Exam: soft, normal bowel sounds, No tenderness, No mass Back Exam: normal inspection, normal range of motion, No CVA tenderness, No vertebral tenderness Extremity Exam: normal inspection, normal range of motion, pelvis stable Neurologic Exam: alert, oriented x 3, cooperative, 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, normal mood/affect, nml cerebellar function, nml station & gait, sensation nml, No motor deficits Skin Exam: normal color, warm, dry, No rash Lymphatic Exam: No adenopathy SpO2 Interpretation: normal (97%) SpO2: 97 - Course Nursing assessment & vital signs reviewed: Yes EKG Interpreted by Me: RATE (77 bpm), Sinus Rhythm, NORMAL AXIS, Other (EKG: Sinus rhythm, 77 bpm, normal axis, no acute ST or T wave changes) Ordered Tests: Active Orders 24 hr Category Date Time Status EKG-ER Only STAT Care 06/04/18 22:47 Active IV Insertion STAT Care 06/04/18 22:47 Active CBC W DIFF Stat Lab 06/04/18 23:12 Completed CMP Stat Lab 06/04/18 23:12 Completed Medication Summary Discontinued Medications Generic Name Dose Route Start Last Admin Trade Name Freq PRN Reason Stop Dose Admin Labetalol HCl 10 mg 06/04/18 23:55 06/05/18 00:07 Trandate 20 Mg/5 Ml Syringe IV 06/04/18 23:56 10 mg STAT ONE Administration Labetalol HCl Confirm 06/05/18 00:04 Trandate 20 Mg/5 Ml Syringe Administered 06/05/18 00:05 Dose 20 mg IV .STK-MED ONE Metoprolol Tartrate 25 mg 06/04/18 23:05 06/04/18 23:09 Lopressor 25mg Tab PO 06/04/18 23:06 25 mg STAT ONE Administration Metoprolol Tartrate Confirm 06/04/18 23:08 Lopressor 25mg Tab Administered 06/04/18 23:09 Dose 25 mg .ROUTE .STK-MED ONE Lab/Rad Data: Laboratory Result Diagrams 06/04/18 23:12 06/04/18 23:12 Laboratory Results 06/04/18 06/04/18 Range/Units 23:12 23:12 WBC 13.1 H (4.0-10.5) K/mm3 RBC 5.54 (4.1-5.6) M/mm3 Hgb 16.8 (12.5-18.0) gm/dl Hct 50.3 H (42-50) % MCV 90.8 (78-100) fl MCH 30.3 (26-32) pg MCHC 33.4 (32-36) g/dl RDW 14.2 H (11.5-14.0) % Plt Count 518 H (150-450) K/mm3 MPV 9.1 (6-9.5) fl Gran % 47.1 (36.0-66.0) % Eos # (Auto) 0.39 (0-0.5) Absolute Lymphs (auto) 4.75 H (1.0-4.6) Absolute Monos (auto) 1.71 H (0.0-1.3) Lymphocytes % 36.2 (24.0-44.0) % Monocytes % 13.0 H (0.0-12.0) % Eosinophils % 3.0 (0.00-5.0) % Basophils % 0.7 (0.0-0.4) % Absolute Granulocytes 6.17 (1.4-6.9) Basophils # 0.09 (0-0.4) Sodium 141 (137-145) mmol/L Potassium 4.4 (3.5-5.1) mmol/L Chloride 103 (98-107) mmol/L Carbon Dioxide 31 H (22-30) mmol/L Anion Gap 11.2 (5-15) MEQ/L BUN 13 (9-20) mg/dL Creatinine 1.01 (0.66-1.25) mg/dL Estimated GFR > 60.0 ML/MIN Glucose 72 L (74-106) mg/dL Calcium 9.1 (8.4-10.2) mg/dL Total Bilirubin 0.40 (0.2-1.3) mg/dL AST 21 (17-59) U/L ALT 20 (0-50) U/L Alkaline Phosphatase 69 (38-126) U/L Serum Total Protein 7.7 (6.3-8.2) g/dL Albumin 4.1 (3.5-5.0) g/dL - Progress Progress: improved Progress Note: 06/05/18 00:54 62-year-old white male who had an extensive workup yesterday secondary paresthesia left side of face. Patient at that time had had tele neurology neurology consult. The neurologist at that time had recommended an MRI however the patient refused. Patient also refused second troponin. He arrives today he states he still has paresthesias in the left hand and face this is not changed from yesterday he has no focal neurologic findings within normal neurologic exam. Patient is alert oriented 3. He has no facial droop. Patient's speech is normal. Cranial nerves II through XII are intact. 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 Normal finger to nose. No pronator drift. Full range of motion to all extremities. Sensation intact to all extremities. [place] Coma Scale is 15. He is sent by the alf for elevated blood pressure. Patient arrives with a diastolic blood pressure of approximately 107. He has no chest pain and is not in acute distress. Patient's labs white blood cell 13.1 hemoglobin 16.8 hematocrit 50.3 platelets 518 patient's chemistry sodium 141 potassium 4.4 chloride 103 BUN 13 creatinine 1.01 glucose is 72 Patient's EKG sinus rhythm, 77 bpm normal axis, no acute ST or T wave changes. Patient is on aspirin 81 mg orally daily. Patient is given Lopressor 25 mg orally. Patient is given labetalol 10 mg IV. Blood pressure has come down. Blood pressure is 143/95. Will plan to discharge patient He is to began metoprolol 50 mg orally daily He is to follow-up with the alf doctor. He is return for acute distress or for severe symptoms. - Departure Time of Disposition: 00:59 Departure Disposition: Prison/Detention Clinical Impression: Hypertension Qualifiers: Hypertension type: unspecified Qualified Code(s): I10 - Essential (primary) hypertension Condition: Fair Critical Care Time: No Referrals: DOCTOR,NO FAMILY [Primary Care Provider] - Additional Instructions: Return home. Toprol-XL 50 one orally daily. Continue aspirin 81 mg orally daily. Follow-up with the alf doctor. Return for acute distress or for severe symptoms. Prescriptions: Metoprolol Succinate 50 mg [Toprol Xl 50 MG] 50 mg PO DAILY #14 tablet
[2018-06-04] MEDS ORDERED: Lopressor 25MG Tab ONE (23:08)
[2018-06-04] MEDS: Lopressor 25MG Tab PO ONE (23:09)
[2018-06-04 23:15] LABS: BASOPHIL % 0.7 % (0.0-0.4); Basophil (Absolute #) 0.09 (0-0.4); Eosinophil (Absolute #) 0.39 (0-0.5); Granulocyte Absolute (ANC) 6.17 (1.4-6.9); Granulocytes % 47.1 % (36.0-66.0); Hematocrit 50.3 % (42-50); Hemoglobin 16.8 gm/dl (12.5-18.0); Lymphocyte (Absolute #) 4.75 (1.0-4.6); Lymphocytes % 36.2 % (24.0-44.0); Mean Cell Volume 90.8 fl (78-100); Mean Corpuscular Hemoglobin 30.3 pg (26-32); Mean Corpuscular Hgb Concent. 33.4 g/dl (32-36); Mean Platelet Volume 9.1 fl (6-9.5); Monocyte (Absolute #) 1.71 (0.0-1.3); Platelet Count 518 K/mm3 (150-450); Red Blood Count 5.54 M/mm3 (4.1-5.6); Red Cell Distribution Width 14.2 % (11.5-14.0); White Blood Count 13.1 K/mm3 (4.0-10.5)
[2018-06-04 23:25] LABS: ALBUMIN 4.1 g/dL (3.5-5.0); ALKALINE PHOSPHATASE 69 U/L (38-126); ANION GAP 11.2 MEQ/L (5-15); BLOOD UREA NITROGEN 13 mg/dL (9-20); CHLORIDE 103 mmol/L (98-107); Calcium 9.1 mg/dL (8.4-10.2); Carbon Dioxide 31 mmol/L (22-30); Creatinine 1 1.01 mg/dL (0.66-1.25); Glucose 72 mg/dL (74-106); Potassium 4.4 mmol/L (3.5-5.1); SGOT/AST 21 U/L (17-59); SGPT/ALT 20 U/L (0-50); SODIUM 141 mmol/L (137-145); Total Protein 7.7 g/dL (6.3-8.2)
[2018-06-05] MEDS ORDERED: TRANDATE 20 MG/5 ML SYRINGE IV ONE (00:04)
[2018-06-05] MEDS: TRANDATE 20 MG/5 ML SYRINGE IV ONE (00:07)
[2018-06-05 00:55] VITALS: BP 143/95; PULSE 65; O2SAT 97
[2018-06-05] MEDS ORDERED: Toprol-Xl 25MG Tablets ONE (01:11)
[2018-06-05] MEDS ORDERED: Toprol Xl 50 MG PO SCH (10:00)
== END 2018-06-05 01:28 | disposition home or self-care (01) ==
LOC: ED 21:13 → EEVIPCON 21:13 → ED 06-05 01:28
DX: I10 Essential (primary) hypertension (principal)
CPT/HCPCS: 36000; 36415; 80053; 85025; 93005; 96374; 99284; A9270-GY

== ENCOUNTER 2018-06-06 18:35 | Emergency (ER) | payer OTHER, MEDICAID ==
--- NOTE | 2018-06-06 19:21 | ERPHSYRPT ---
- History of Present Illness Time Seen by Provider: 06/06/18 19:00 Historian: patient, EMS, other ([facility]) Exam Limitations: no limitations Patient Subjective Stated Complaint: Chest pain Triage Nursing Assessment: Patient ambulated back to ED per [facility] staff and transferred self to bed. Patient A+O X3. Patient complains of chest pain 5/10 for 4 days. Patient was just seen a few days prior for chest pain. Patient also complains of his left hand being numb. Lungs clear a/p benny. Heart tones audible and WNL. Skin pink, warm and dry. Physician History: 62 y/o white male resident of local [facility] presents again to ED. He has been seen here for various complaints including methamphetamine abuse, hand numbness and chest pain 05/31, 06/03, 06/04, and 06/05. he has had extensive negative work up for numbness and this will be addressed as an outpatient. pts cp is midline, nonradiating and sharp. no soa and no abd pain. he denies n/v/d. pt did not take any asa test carrier. Timing/Duration: day(s) (4) Activities at Onset: none Quality: sharpness Location: substernal Chest Pain Radiation: no radiation Severity of Pain-Max: mild Severity of Pain-Current: mild Modifying Factors: Improves With: nothing Associated Symptoms: No nausea, No vomiting, No shortness of breath, No cough, No hurts to breathe, No headache, No dizziness Prior Chest Pain/Cardiac Workup: recently seen/treated Nitro Today/Relief: no nitro taken today Aspirin Treatment Today: no aspirin today Allergies/Adverse Reactions: Penicillins Allergy (Verified 06/06/18 19:06) Home Medications: Metoprolol Tartrate 25 mg [Lopressor 25MG Tab] 50 mg PO DAILY 06/06/18 [ History] Hx Tetanus, Diphtheria Vaccination/Date Given: No Hx Influenza Vaccination/Date Given: No Hx Pneumococcal Vaccination/Date Given: No Immunizations Up to Date: Yes - Review of Systems Constitutional: No Symptoms Eyes: No Symptoms Ears, Nose, & Throat: No Symptoms Respiratory: No Symptoms Cardiac: Chest Pain Abdominal/Gastrointestinal: No Symptoms Genitourinary Symptoms: No Symptoms Musculoskeletal: No Symptoms Skin: No Symptoms Neurological: No Symptoms Psychological: No Symptoms Endocrine: No Symptoms Hematologic/Lymphatic: No Symptoms Immunological/Allergic: No Symptoms All Other Systems: Reviewed and Negative - Past Medical History Pertinent Past Medical History: Yes Neurological History: No Pertinent History ENT History: No Pertinent History Cardiac History: No Pertinent History Respiratory History: No Pertinent History Endocrine Medical History: No Pertinent History Musculoskeletal History: No Pertinent History GI Medical History: No Pertinent History History: No Pertinent History Psycho-Social History: No Pertinent History Male Reproductive Disorders: No Pertinent History - Past Surgical History Past Surgical History: Yes Neuro Surgical History: No Pertinent History Cardiac: No Pertinent History Respiratory: No Pertinent History Gastrointestinal: No Pertinent History Genitourinary: No Pertinent History Musculoskeletal: No Pertinent History Male Surgical History: No Pertinent History Other Surgical History: SPLEEN REMOVED - Social History Smoking Status: Current every day smoker How long have you smoked: YRS Exposure to second hand smoke: No Drug Use: methamphetamines Patient Lives Alone: No - Nursing Vital Signs Nursing Vital Signs: Initial Vital Signs Temperature 98.7 F 06/06/18 18:59 Pulse Rate 73 06/06/18 18:59 Respiratory Rate 16 06/06/18 18:59 Blood Pressure 124/82 06/06/18 18:59 O2 Sat by Pulse Oximetry 96 06/06/18 18:59 Pain Scale Pain Intensity 5 - Physical Exam General Appearance: no apparent distress, alert Eye Exam: PERRL/EOMI, eyes nml inspection Ears, Nose, Throat Exam: normal ENT inspection, moist mucous membranes Neck Exam: normal inspection, non-tender, supple, full range of motion Respiratory Exam: normal breath sounds, chest tenderness, lungs clear, airway intact, No respiratory distress Cardiovascular Exam: regular rate/rhythm, normal heart sounds, normal peripheral pulses Gastrointestinal/Abdomen Exam: soft, normal bowel sounds, No tenderness, No guarding, No rebound Rectal Exam: not done Back Exam: normal inspection, normal range of motion, CVA tenderness Extremity Exam: normal inspection, normal range of motion, pelvis stable Neurologic Exam: alert, oriented x 3, 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, 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 Skin Exam: normal color, warm, dry Lymphatic Exam: No adenopathy SpO2 Interpretation: normal SpO2: 96 O2 Delivery: Room Air - Course Nursing assessment & vital signs reviewed: Yes EKG Interpreted by Me: RATE (75), Sinus Rhythm, NORMAL AXIS, NORMAL INTERVALS, NORMAL QRS, Non-specific ST Changes, Other (no changes when comparison ekg dated 06/04/18) Ordered Tests: Active Orders 24 hr Category Date Time Status IV Insertion STAT Care 06/06/18 18:37 Active CHEST 1 VIEW (PORTABLE) Stat Exams 06/06/18 19:00 Taken AMYLASE Stat Lab 06/06/18 18:54 Completed CBC W DIFF Stat Lab 06/06/18 18:54 Completed D-DIMER QUANTITATION Stat Lab 06/06/18 18:54 Completed LIPASE Stat Lab 06/06/18 18:54 Completed TROPONIN Q3H Lab 06/06/18 18:54 Completed TROPONIN Q3H Lab 06/06/18 21:45 Ordered EKG STAT RT 06/06/18 18:37 Active Medication Summary Discontinued Medications Generic Name Dose Route Start Last Admin Trade Name Freq PRN Reason Stop Dose Admin Aspirin 324 mg 06/06/18 19:25 06/06/18 20:06 Baby Aspirin 81 Mg Chew PO 06/06/18 19:26 324 mg STAT ONE Administration Aspirin Confirm 06/06/18 20:05 Baby Aspirin 81 Mg Chew Administered 06/06/18 20:06 Dose 324 mg .ROUTE .STK-MED ONE Lab/Rad Data: Laboratory Result Diagrams 06/06/18 18:54 Laboratory Results 06/06/18 06/06/18 06/06/18 Range/Units 18:54 18:54 18:54 WBC (4.0-10.5) K/mm3 RBC (4.1-5.6) M/mm3 Hgb (12.5-18.0) gm/dl Hct (42-50) % MCV (78-100) fl MCH (26-32) pg MCHC (32-36) g/dl RDW (11.5-14.0) % Plt Count (150-450) K/mm3 MPV (6-9.5) fl Gran % (36.0-66.0) % Eos # (Auto) (0-0.5) Absolute Lymphs (auto) (1.0-4.6) Absolute Monos (auto) (0.0-1.3) Lymphocytes % (24.0-44.0) % Monocytes % (0.0-12.0) % Eosinophils % (0.00-5.0) % Basophils % (0.0-0.4) % Absolute Granulocytes (1.4-6.9) Basophils # (0-0.4) D-Dimer 483 (215-500) ng/mL Troponin I < 0.012 (0.000-0.034) ng/mL Amylase 102 (30-110) U/L Lipase 109 (23-300) U/L 06/06/18 Range/Units 18:54 WBC 12.4 H (4.0-10.5) K/mm3 RBC 5.43 (4.1-5.6) M/mm3 Hgb 16.4 (12.5-18.0) gm/dl Hct 49.8 (42-50) % MCV 91.7 (78-100) fl MCH 30.2 (26-32) pg MCHC 32.9 (32-36) g/dl RDW 14.0 (11.5-14.0) % Plt Count 512 H (150-450) K/mm3 MPV 9.4 (6-9.5) fl Gran % 86.0 H (36.0-66.0) % Eos # (Auto) 0.06 (0-0.5) Absolute Lymphs (auto) 0.56 L (1.0-4.6) Absolute Monos (auto) 1.05 (0.0-1.3) Lymphocytes % 4.5 L (24.0-44.0) % Monocytes % 8.5 (0.0-12.0) % Eosinophils % 0.5 (0.00-5.0) % Basophils % 0.5 (0.0-0.4) % Absolute Granulocytes 10.62 H (1.4-6.9) Basophils # 0.06 (0-0.4) D-Dimer (215-500) ng/mL Troponin I (0.000-0.034) ng/mL Amylase (30-110) U/L Lipase (23-300) U/L - Progress Progress: re-examined Air Movement: good Progress Note: 06/06/18 20:40 cxr- no acute process. no change from cxr dated 06/03/18 Blood Culture(s) Obtained: No Antibiotics given: No Counseled pt/family regarding: lab results, diagnosis, need for follow-up - Departure Time of Disposition: 20:41 Departure Disposition: Home Clinical Impression: Non-cardiac chest pain Condition: Stable Critical Care Time: No Referrals: DOCTOR,NO FAMILY [Primary Care Provider] - Additional Instructions: follow up with primary doctor or it sales consultant for further management
[2018-06-06] MEDS ORDERED: BABY ASPIRIN 81 MG CHEW PO ONE (19:25)
[2018-06-06 19:33] LABS: BASOPHIL % 0.5 % (0.0-0.4); Basophil (Absolute #) 0.06 (0-0.4); Eosinophil % 0.5 % (0.00-5.0); Eosinophil (Absolute #) 0.06 (0-0.5); Granulocyte Absolute (ANC) 10.62 (1.4-6.9); Hematocrit 49.8 % (42-50); Hemoglobin 16.4 gm/dl (12.5-18.0); Lymphocyte (Absolute #) 0.56 (1.0-4.6); Lymphocytes % 4.5 % (24.0-44.0); Mean Cell Volume 91.7 fl (78-100); Mean Corpuscular Hemoglobin 30.2 pg (26-32); Mean Corpuscular Hgb Concent. 32.9 g/dl (32-36); Mean Platelet Volume 9.4 fl (6-9.5); Monocyte (Absolute #) 1.05 (0.0-1.3); Monocytes % 8.5 % (0.0-12.0); Platelet Count 512 K/mm3 (150-450); Red Blood Count 5.43 M/mm3 (4.1-5.6); White Blood Count 12.4 K/mm3 (4.0-10.5)
[2018-06-06 19:42] LABS: AMYLASE 102 U/L (30-110); LIPASE 109 U/L (23-300)
[2018-06-06] MEDS ORDERED: BABY ASPIRIN 81 MG CHEW ONE (20:05)
[2018-06-06 20:14] VITALS: BP 133/78
[2018-06-06 20:57] VITALS: PULSE 94; O2SAT 98
[2018-06-06 21:13] LABS: Slide Review 1 YES
--- NOTE | 2018-06-07 08:45 | XRAY ---
Indication: Chest pain. Comparison: June 03, 2018. Portable chest unchanged again with left hemidiaphragm elevation, left base discoid atelectasis/scarring, and right mid lung calcified granuloma. Heart is not enlarged again with tortuous descending aorta. No new/acute findings.
== END 2018-06-06 20:58 | disposition home or self-care (01) ==
LOC: ED 18:35
DX: R07.89 Other chest pain (principal)
CPT/HCPCS: 36000; 36415; 71045; 82150; 83690; 84484; 85025; 85379; 99284; A9270-GY

== ENCOUNTER 2018-06-16 22:02 | Emergency (ER) | payer OTHER, MEDICAID ==
[2018-06-16] MEDS ORDERED: Nitrostat 0.4 MG (ED) SL ONE ×2 (22:27→22:46)
[2018-06-16] MEDS ORDERED: BABY ASPIRIN 81 MG CHEW PO ONE (22:27)
[2018-06-16] MEDS ORDERED: Levofloxacin 500MG/100ML D5W 500 MG/100 ML BAG IV STA (22:29)
[2018-06-16] MEDS ORDERED: solu-MEDROL 125 MG IV ONE (22:29)
[2018-06-16] MEDS ORDERED: DUONEB 0.5-3 MG/3 ml Neb IH ONE ×2 (22:29→22:44)
[2018-06-16] MEDS ORDERED: Sodium Chloride 0.9% 1000 ML 1,000 ML IV SCH (22:30)
[2018-06-16] MEDS ORDERED: BABY ASPIRIN 81 MG CHEW ONE (22:46)
[2018-06-16] MEDS ORDERED: Sodium Chloride 0.9% 1000 ML 1,000 ML ONE (22:46)
[2018-06-16] MEDS ORDERED: solu-MEDROL 125 MG ONE (22:49)
[2018-06-16 23:15] LABS: BASOPHIL % 0.2 % (0.0-0.4); Basophil (Absolute #) 0.03 (0-0.4); Eosinophil % 0.7 % (0.00-5.0); Eosinophil (Absolute #) 0.11 (0-0.5); Granulocyte Absolute (ANC) 10.88 (1.4-6.9); Granulocytes % 67.8 % (36.0-66.0); Hematocrit 49.2 % (42-50); Hemoglobin 16.4 gm/dl (12.5-18.0); Lymphocyte (Absolute #) 3.37 (1.0-4.6); Mean Cell Volume 89.5 fl (78-100); Mean Corpuscular Hemoglobin 29.8 pg (26-32); Mean Corpuscular Hgb Concent. 33.3 g/dl (32-36); Mean Platelet Volume 9.2 fl (6-9.5); Monocyte (Absolute #) 1.66 (0.0-1.3); Monocytes % 10.3 % (0.0-12.0); Platelet Count 705 K/mm3 (150-450); Red Cell Distribution Width 13.7 % (11.5-14.0); White Blood Count 16.1 K/mm3 (4.0-10.5)
[2018-06-16 23:29] LABS: INR 1.14 (0.8-3.0); PROTIME 13.3 SECONDS (8.83-12.87)
--- NOTE | 2018-06-16 23:34 | ERPHSYRPT ---
- History of Present Illness Time Seen by Provider: 06/16/18 22:15 Historian: patient Exam Limitations: clinical condition Patient Subjective Stated Complaint: Chest pain Triage Nursing Assessment: Patient ambulated back to ED and transferred self to bed. Patient A=O X 3. Patient brought in per legal compliance officer. Patient complains of Chest pain constant pressure in chest 5/10. Patient's lungs noted wheezes a/ p benny. Patient states he was laying in his cell and started having chest pain. No edema noted. Patient does have cough with yellow sputum. Physician History: PATIENT COMPLAINS OF CHEST PAIN WHICH HE DESCRIBES A CHEST PRESSURE TODAY ASSOCIATED WITH PRODUCTIVE COUGH WHITE YELLOW SPUTUM FOR 3-4 DAYS AND DYSPNEA. DENIES FEVER, CHILLS, RADIATION OF PAIN TO NECK, JAW, BACK OR ARMS. Timing/Duration: today Activities at Onset: none Quality: pressure Location: substernal Chest Pain Radiation: no radiation Severity of Pain-Max: moderate Severity of Pain-Current: moderate Modifying Factors: Improves With: coughing Associated Symptoms: cough, hurts to breathe Prior Chest Pain/Cardiac Workup: non-cardiac Nitro Today/Relief: 0.4 mg x 2 Aspirin Treatment Today: 81 mg x 4, provided by ED Allergies/Adverse Reactions: Penicillins Allergy (Verified 06/16/18 22:09) Home Medications: Metoprolol Tartrate 25 mg [Lopressor 25MG Tab] 50 mg PO DAILY 06/06/18 [ History] Lisinopril 20 mg [Zestril 20 MG] 1 tab PO DAILY 06/16/18 [History] Hx Tetanus, Diphtheria Vaccination/Date Given: No Hx Influenza Vaccination/Date Given: No Hx Pneumococcal Vaccination/Date Given: No Immunizations Up to Date: Yes - Review of Systems Constitutional: No Fever, No Chills Eyes: No Symptoms Ears, Nose, & Throat: No Symptoms Respiratory: Cough, Dyspnea Cardiac: Chest Pain, No Edema, No Syncope Abdominal/Gastrointestinal: No Symptoms, No Abdominal Pain, No Nausea, No Vomiting, No Diarrhea Genitourinary Symptoms: No Symptoms, No Dysuria Musculoskeletal: No Symptoms, No Back Pain, No Neck Pain Skin: No Symptoms, No Rash Neurological: No Dizziness, No Focal Weakness, No Sensory Changes Psychological: No Symptoms Endocrine: No Symptoms All Other Systems: Reviewed and Negative - Past Medical History Pertinent Past Medical History: Yes Neurological History: No Pertinent History ENT History: No Pertinent History Cardiac History: No Pertinent History Respiratory History: No Pertinent History Endocrine Medical History: No Pertinent History Musculoskeletal History: No Pertinent History GI Medical History: No Pertinent History History: No Pertinent History Psycho-Social History: No Pertinent History Male Reproductive Disorders: No Pertinent History - Past Surgical History Past Surgical History: Yes Neuro Surgical History: No Pertinent History Cardiac: No Pertinent History Respiratory: No Pertinent History Gastrointestinal: No Pertinent History Genitourinary: No Pertinent History Musculoskeletal: No Pertinent History Male Surgical History: No Pertinent History Other Surgical History: SPLEEN REMOVED - Social History Smoking Status: Current every day smoker How long have you smoked: YRS Exposure to second hand smoke: No Drug Use: methamphetamines Patient Lives Alone: No (Correction) - Nursing Vital Signs Nursing Vital Signs: Initial Vital Signs Temperature 98.0 F 06/16/18 22:10 Pulse Rate 73 06/16/18 22:10 Respiratory Rate 21 06/16/18 22:10 Blood Pressure 145/85 06/16/18 22:10 O2 Sat by Pulse Oximetry 99 06/16/18 22:10 Pain Scale Pain Intensity 5 - Physical Exam General Appearance: no apparent distress, alert, other (AMBULATES INTO EMERGENCY ROOM APPEARS IN NO DISTRESS) Eye Exam: PERRL/EOMI, eyes nml inspection Ears, Nose, Throat Exam: normal ENT inspection, moist mucous membranes Neck Exam: normal inspection, non-tender, supple, full range of motion Respiratory Exam: crackles/rales, wheezing, No respiratory distress Cardiovascular Exam: regular rate/rhythm, normal heart sounds Gastrointestinal/Abdomen Exam: soft, No tenderness, No mass Back Exam: normal inspection, No CVA tenderness, No vertebral tenderness Extremity Exam: normal inspection, normal range of motion Neurologic Exam: alert, oriented x 3, cooperative, normal mood/affect, sensation nml, No motor deficits Skin Exam: normal color, warm, dry SpO2 Interpretation: normal SpO2: 97 Ordered Tests: Active Orders 24 hr Category Date Time Status Software Release Engineer STAT Care 06/16/18 22:28 Active EKG-ER Only STAT Care 06/16/18 22:27 Active IV Insertion STAT Care 06/16/18 22:27 Active Oxygen-ED Only Nasal Cannula 2 lpm Care 06/16/18 22:27 Active CHEST 1 VIEW (PORTABLE) Stat Exams 06/16/18 22:40 Taken BLOOD CULTURE Stat Lab 06/16/18 22:29 Ordered CBC W DIFF Stat Lab 06/16/18 22:27 Completed CMP Stat Lab 06/16/18 22:27 Ordered D-DIMER QUANTITATION Stat Lab 06/16/18 22:27 Ordered Manual Differential NC Stat Lab 06/16/18 22:27 Completed PROTIME WITH INR Stat Lab 06/16/18 22:27 Ordered TROPONIN Q3H Lab 06/16/18 22:30 Ordered TROPONIN Q3H Lab 06/17/18 01:30 Ordered TROPONIN Q3H Lab 06/17/18 04:30 Ordered TROPONIN Q3H Lab 06/17/18 07:30 Ordered TROPONIN Q3H Lab 06/17/18 10:30 Ordered Urine Triage Profile Stat Lab 06/16/18 22:32 Uncollected Peak Expiratory Flow Rate ONCE RT 06/16/18 22:29 Active Respiratory Nebulizer STAT RT 06/16/18 22:30 Active Respiratory Therapy Assessment DAILY RT 06/16/18 22:38 Active Medication Summary Generic Name Dose Route Start Last Admin Trade Name Freq PRN Reason Stop Dose Admin Sodium Chloride 1,000 mls @ 20 mls/hr 06/16/18 22:30 06/16/18 22:47 Sodium Chloride 0.9% 1000 Ml IV 07/16/18 22:29 20 mls/hr .Q24H GONZALEZ Administration Discontinued Medications Generic Name Dose Route Start Last Admin Trade Name Freq PRN Reason Stop Dose Admin Albuterol/Ipratropium 3 ml 06/16/18 22:29 06/16/18 22:48 Duoneb 0.5-3 Mg/3 Ml Neb IH 06/16/18 22:30 3 ml STAT ONE Administration Albuterol/Ipratropium Confirm 06/16/18 22:44 Duoneb 0.5-3 Mg/3 Ml Neb Administered 06/16/18 22:45 Dose 3 ml IH .STK-MED ONE Aspirin 324 mg 06/16/18 22:27 06/16/18 22:34 Baby Aspirin 81 Mg Chew PO 06/16/18 22:28 324 mg STAT ONE Administration Aspirin Confirm 06/16/18 22:46 Baby Aspirin 81 Mg Chew Administered 06/16/18 22:47 Dose 324 mg .ROUTE .STK-MED ONE Levofloxacin/Dextrose 500 mg in 100 mls @ 100 mls/hr 06/16/18 22:29 06/16/18 23:06 Levofloxacin 500mg/100ml D5w IV 06/16/18 23:28 100 ml/hr STAT STA 100 mls/hr Administration Methylprednisolone Sodium Succinate 125 mg 06/16/18 22:29 06/16/18 22:49 Solu-Medrol 125 Mg IV 06/16/18 22:30 125 mg STAT ONE Administration Methylprednisolone Sodium Succinate Confirm 06/16/18 22:49 Solu-Medrol 125 Mg Administered 06/16/18 22:50 Dose 125 mg .ROUTE .STK-MED ONE Nitroglycerin 0.4 mg 06/16/18 22:27 06/16/18 22:34 Nitrostat 0.4 Mg (Ed) SL 06/16/18 22:28 0.4 mg STAT ONE Administration Nitroglycerin Confirm 06/16/18 22:46 Nitrostat 0.4 Mg (Ed) Administered 06/16/18 22:47 Dose 0.4 mg SL .STK-MED ONE Lab/Rad Data: Laboratory Result Diagrams 06/16/18 22:27 Laboratory Results 06/16/18 Range/Units 22:27 WBC 16.1 H (4.0-10.5) K/mm3 RBC 5.50 (4.1-5.6) M/mm3 Hgb 16.4 (12.5-18.0) gm/dl Hct 49.2 (42-50) % MCV 89.5 (78-100) fl MCH 29.8 (26-32) pg MCHC 33.3 (32-36) g/dl RDW 13.7 (11.5-14.0) % Plt Count 705 H (150-450) K/mm3 MPV 9.2 (6-9.5) fl Gran % 67.8 H (36.0-66.0) % Eos # (Auto) 0.11 (0-0.5) Absolute Lymphs (auto) 3.37 (1.0-4.6) Absolute Monos (auto) 1.66 H (0.0-1.3) Lymphocytes % 21.0 L (24.0-44.0) % Monocytes % 10.3 (0.0-12.0) % Eosinophils % 0.7 (0.00-5.0) % Basophils % 0.2 (0.0-0.4) % Absolute Granulocytes 10.88 H (1.4-6.9) Basophils # 0.03 (0-0.4) - Progress Progress Note: 06/16/18 23:39 ADMINISTERED DUO NEB AEROSOL, ASPIRIN 324 ORALLY, NTG 0.4MG SL X 2, AFTER 2 SETS OF BLOOD CULTURES, ROCEPHIN 1GM, ZITHROMAX 500MG IVPB Blood Culture(s) Obtained: Yes Antibiotics given: Yes - Departure Referrals: DOCTOR,NO FAMILY [Primary Care Provider] -
[2018-06-16 23:49] LABS: INFLUENZA B NEGATIVE (NEGATIVE); RESPIRATORY SYNCTIAL VIRUS NEGATIVE (Negative)
[2018-06-16 23:50] LABS: INFLUENZA A POSITIVE (NEGATIVE)
[2018-06-16] MEDS ORDERED: Tamiflu 75MG Capsule PO ONE (23:57)
[2018-06-17] MEDS ORDERED: Tamiflu 75MG Capsule PO ONE (00:01)
[2018-06-17 01:16] VITALS: BP 145/95; PULSE 74; O2SAT 93
--- NOTE | 2018-06-17 08:52 | XRAY ---
Indication: Chest pain. Comparison: June 06, 2018. Portable apical lordotic chest unchanged again with left hemidiaphragm elevation, left base discoid atelectasis/scarring, and a few calcified granulomas. Heart is not enlarged again with tortuous descending aorta. No new/acute findings.
[2018-06-17 08:54] LABS: ANISOCYTOSIS 1+; ATYPICAL LYMPHS 5 %; BAND 13 % (0.0-2.0); Lymphocytes 2 % (24-44); Monocyte 14 % (0.0-12.0); Neutrophils 66 % (36.-66.); Platelet Estimate INCREASED (NORMAL); Poikilocytosis 2+; Total Cells Counted 100
[2018-06-17 11:20] LABS: Amphetamine,Urine NEGATIVE (NEGATIVE); Barbiturate,Urine NEGATIVE (NEGATIVE); Benzodiazepine,Urine NEGATIVE (NEGATIVE); Cocaine,Urine NEGATIVE (NEGATIVE); Methadone,Urine NEGATIVE (NEGATIVE); Opiate,Urine NEGATIVE (NEGATIVE); PCP,Urine NEGATIVE (NEGATIVE); THC,Urine NEGATIVE (NEGATIVE)
[2018-06-17 11:21] LABS: BLOOD UREA NITROGEN 15 mg/dL (9-20); CHLORIDE 102 mmol/L (98-107); Calcium 9.2 mg/dL (8.4-10.2); Carbon Dioxide 27 mmol/L (22-30); Creatinine 1 0.88 mg/dL (0.66-1.25); Glucose 119 mg/dL (74-106); SODIUM 142 mmol/L (137-145); Total Protein 7.7 g/dL (6.3-8.2)
[2018-06-17 11:22] LABS: ALKALINE PHOSPHATASE 85 U/L (38-126); ANION GAP 18 MEQ/L (5-15); SGOT/AST 26 U/L (17-59); SGPT/ALT 30 U/L (0-50)
== END 2018-06-17 05:00 ==
LOC: ED 22:02
DX: R07.89 Other chest pain (principal)
CPT/HCPCS: 36000; 36415; 71045; 80053; 80307; 85025; 85379; 85610; 87040; 87631; 93005; 93041; 94150; 94640; 96360; 96365; 96374; 99284; J1956; J2930; A9270-GY

== ENCOUNTER 2018-06-18 00:41 | Emergency (ER) | payer OTHER, MEDICAID ==
[2018-06-18 01:14] VITALS: O2SAT 98
[2018-06-18] MEDS ORDERED: Sodium Chloride 0.9% 1000 ML 1,000 ML IV STA (01:17)
--- NOTE | 2018-06-18 01:20 | ERPHSYRPT ---
- History of Present Illness Time Seen by Provider: 06/18/18 01:19 Historian: patient, police Exam Limitations: no limitations Patient Subjective Stated Complaint: pt reports chest pain starting one hour ago at rest. pt reports fatigue, cough, and shortness of breath. pt report intermittent pain to the center of the chest. pt has recent dx of influenza A. Triage Nursing Assessment: pt is aox3, pupils perrl, pt appears in no current distress, afebrile, resps easy and non labored, lung sounds are clear, radial pulses strong and equal, pt skin pink warm dry, cap refill < 3 seconds, no edema noted. Physician History: pt reports chest pain starting one hour ago at rest. pt reports fatigue, cough, and shortness of breath. pt report intermittent pain to the center of the chest. pt has recent dx of influenza A. Timing/Duration: today Activities at Onset: none Associated Symptoms: shortness of breath, cough Prior Chest Pain/Cardiac Workup: no prior chest pain Aspirin Treatment Today: no aspirin today Allergies/Adverse Reactions: Penicillins Allergy (Verified 06/18/18 01:13) Home Medications: Metoprolol Tartrate 25 mg [Lopressor 25MG Tab] 50 mg PO DAILY 06/06/18 [ History] Lisinopril 20 mg [Zestril 20 MG] 1 tab PO DAILY 06/16/18 [History] Hx Tetanus, Diphtheria Vaccination/Date Given: Yes Hx Influenza Vaccination/Date Given: No Hx Pneumococcal Vaccination/Date Given: No Immunizations Up to Date: Yes - Review of Systems Constitutional: No Fever, No Chills Eyes: No Symptoms Ears, Nose, & Throat: No Symptoms Respiratory: Cough, No Dyspnea Cardiac: Chest Pain, No Edema, No Syncope Abdominal/Gastrointestinal: No Abdominal Pain, No Nausea, No Vomiting, No Diarrhea Genitourinary Symptoms: No Dysuria Musculoskeletal: No Back Pain, No Neck Pain Skin: No Rash Neurological: No Dizziness, No Focal Weakness, No Sensory Changes Psychological: No Symptoms Endocrine: No Symptoms All Other Systems: Reviewed and Negative - Past Medical History Pertinent Past Medical History: Yes Neurological History: No Pertinent History ENT History: No Pertinent History Cardiac History: No Pertinent History Respiratory History: No Pertinent History Endocrine Medical History: No Pertinent History Musculoskeletal History: No Pertinent History GI Medical History: No Pertinent History History: No Pertinent History Psycho-Social History: No Pertinent History Male Reproductive Disorders: No Pertinent History - Past Surgical History Past Surgical History: Yes Neuro Surgical History: No Pertinent History Cardiac: No Pertinent History Respiratory: No Pertinent History Gastrointestinal: No Pertinent History Genitourinary: No Pertinent History Musculoskeletal: No Pertinent History Male Surgical History: No Pertinent History Other Surgical History: SPLEEN REMOVED - Social History Smoking Status: Current every day smoker How long have you smoked: YRS Exposure to second hand smoke: No Drug Use: none Patient Lives Alone: No - Nursing Vital Signs Nursing Vital Signs: Initial Vital Signs Temperature 98.4 F 06/18/18 01:06 Pulse Rate 66 06/18/18 01:06 Respiratory Rate 18 06/18/18 01:06 Blood Pressure 152/94 06/18/18 01:06 O2 Sat by Pulse Oximetry 98 06/18/18 01:06 Pain Scale Pain Intensity 5 - Physical Exam General Appearance: no apparent distress, alert Eye Exam: PERRL/EOMI, eyes nml inspection Ears, Nose, Throat Exam: normal ENT inspection, moist mucous membranes Neck Exam: normal inspection, non-tender, supple, full range of motion Respiratory Exam: normal breath sounds, lungs clear, No respiratory distress Cardiovascular Exam: regular rate/rhythm, normal heart sounds Gastrointestinal/Abdomen Exam: soft, No tenderness, No mass Back Exam: normal inspection, No CVA tenderness, No vertebral tenderness Extremity Exam: normal inspection, normal range of motion Neurologic Exam: alert, oriented x 3, cooperative, normal mood/affect, sensation nml, No motor deficits Skin Exam: normal color, warm, dry SpO2: 98 - Course Nursing assessment & vital signs reviewed: Yes Ordered Tests: Active Orders 24 hr Category Date Time Status EKG-ER Only STAT Care 06/18/18 01:17 Active IV Insertion STAT Care 06/18/18 01:29 Active CHEST 1 VIEW (PORTABLE) Stat Exams 06/18/18 01:17 Taken CBC W DIFF Stat Lab 06/18/18 01:39 Completed CMP Stat Lab 06/18/18 01:39 Completed Manual Differential NC Stat Lab 06/18/18 01:39 Completed TROPONIN Q3H Lab 06/18/18 01:39 Completed TROPONIN Q3H Lab 06/18/18 04:30 Ordered TROPONIN Q3H Lab 06/18/18 07:30 Ordered TROPONIN Q3H Lab 06/18/18 10:30 Ordered TROPONIN Q3H Lab 06/18/18 13:30 Ordered Medication Summary Discontinued Medications Generic Name Dose Route Start Last Admin Trade Name Cara PRN Reason Stop Dose Admin Sodium Chloride 1,000 mls @ 999 mls/hr 06/18/18 01:17 06/18/18 01:37 Sodium Chloride 0.9% 1000 Ml IV 06/18/18 02:17 999 mls/hr .Q1H1M STA Administration Sodium Chloride Confirm 06/18/18 01:31 Sodium Chloride 0.9% 1000 Ml Administered 06/18/18 01:32 Dose 1,000 mls @ ud .ROUTE .STK-MED ONE Levofloxacin 500 mg 06/18/18 02:16 Levofloxacin 250mg Tablet PO 06/18/18 02:17 STAT ONE Lab/Rad Data: Laboratory Result Diagrams 06/18/18 01:39 06/18/18 01:39 Laboratory Results 06/18/18 06/18/18 06/18/18 Range/Units 01:39 01:39 01:39 WBC 17.0 H (4.0-10.5) K/mm3 RBC 5.36 (4.1-5.6) M/mm3 Hgb 15.9 (12.5-18.0) gm/dl Hct 48.1 (42-50) % MCV 89.7 (78-100) fl MCH 29.7 (26-32) pg MCHC 33.1 (32-36) g/dl RDW 13.8 (11.5-14.0) % Plt Count 723 H (150-450) K/mm3 MPV 9.1 (6-9.5) fl Gran % 63.3 (36.0-66.0) % Eos # (Auto) 0.08 (0-0.5) Absolute Lymphs (auto) 3.87 (1.0-4.6) Absolute Monos (auto) 2.25 H (0.0-1.3) Lymphocytes % 22.8 L (24.0-44.0) % Monocytes % 13.2 H (0.0-12.0) % Eosinophils % 0.5 (0.00-5.0) % Basophils % 0.2 (0.0-0.4) % Absolute Granulocytes 10.75 H (1.4-6.9) Segmented Neutrophils 70 H (36.-66.) % Band Neutrophils 2 (0.0-2.0) % Lymphocytes (Manual) 18 L (24-44) % Monocytes (Manual) 10 (0.0-12.0) % Basophils # 0.04 (0-0.4) Sodium 142 (137-145) mmol/L Potassium 4.0 (3.5-5.1) mmol/L Chloride 103 (98-107) mmol/L Carbon Dioxide 29 (22-30) mmol/L Anion Gap 13.3 (5-15) MEQ/L BUN 18 (9-20) mg/dL Creatinine 1.04 (0.66-1.25) mg/dL Estimated GFR > 60.0 ML/MIN Glucose 92 (74-106) mg/dL Calcium 9.1 (8.4-10.2) mg/dL Total Bilirubin 0.60 (0.2-1.3) mg/dL AST 23 (17-59) U/L ALT 26 (0-50) U/L Alkaline Phosphatase 71 (38-126) U/L Troponin I < 0.012 (0.000-0.034) ng/mL Serum Total Protein 7.8 (6.3-8.2) g/dL Albumin 4.0 (3.5-5.0) g/dL Slides for Path Review YES - Departure Time of Disposition: 02:18 Departure Disposition: Home Clinical Impression: Bronchitis Pneumonia Qualifiers: Pneumonia type: due to unspecified organism Laterality: left Lung location: lower lobe of lung Qualified Code(s): J18.1 - Lobar pneumonia, unspecified organism Condition: Stable Critical Care Time: Yes Critical Care Time(excluding separately billable procedures): 30-74 minutes Referrals: DOCTOR,NO FAMILY [Primary Care Provider] - Instructions: Acute Bronchitis, Pneumonia in Adults Prescriptions: Levofloxacin [Levaquin 500 MG Tablet] 500 mg PO QAM #7 tablet
[2018-06-18] MEDS ORDERED: Sodium Chloride 0.9% 1000 ML 1,000 ML ONE (01:31)
[2018-06-18 01:38] LABS: BASOPHIL % 0.2 % (0.0-0.4); Basophil (Absolute #) 0.04 (0-0.4); Eosinophil % 0.5 % (0.00-5.0); Eosinophil (Absolute #) 0.08 (0-0.5); Granulocyte Absolute (ANC) 10.75 (1.4-6.9); Granulocytes % 63.3 % (36.0-66.0); Hematocrit 48.1 % (42-50); Hemoglobin 15.9 gm/dl (12.5-18.0); Lymphocyte (Absolute #) 3.87 (1.0-4.6); Lymphocytes % 22.8 % (24.0-44.0); Mean Cell Volume 89.7 fl (78-100); Mean Corpuscular Hemoglobin 29.7 pg (26-32); Mean Corpuscular Hgb Concent. 33.1 g/dl (32-36); Mean Platelet Volume 9.1 fl (6-9.5); Monocyte (Absolute #) 2.25 (0.0-1.3); Monocytes % 13.2 % (0.0-12.0); Platelet Count 723 K/mm3 (150-450); Red Blood Count 5.36 M/mm3 (4.1-5.6); Red Cell Distribution Width 13.8 % (11.5-14.0)
[2018-06-18 01:49] LABS: ALKALINE PHOSPHATASE 71 U/L (38-126); ANION GAP 13.3 MEQ/L (5-15); BLOOD UREA NITROGEN 18 mg/dL (9-20); CHLORIDE 103 mmol/L (98-107); Calcium 9.1 mg/dL (8.4-10.2); Carbon Dioxide 29 mmol/L (22-30); Creatinine 1 1.04 mg/dL (0.66-1.25); Glucose 92 mg/dL (74-106); SGOT/AST 23 U/L (17-59); SGPT/ALT 26 U/L (0-50); SODIUM 142 mmol/L (137-145); Total Protein 7.8 g/dL (6.3-8.2)
[2018-06-18 02:12] LABS: BAND 2 % (0.0-2.0); Lymphocytes 18 % (24-44); Monocyte 10 % (0.0-12.0); Neutrophils 70 % (36.-66.); Total Cells Counted 100
[2018-06-18 02:13] LABS: Slide Review 1 YES
[2018-06-18] MEDS ORDERED: Levofloxacin 250MG Tablet PO ONE (02:16)
[2018-06-18] MEDS ORDERED: Levofloxacin 500 MG Tablet ONE (02:23)
[2018-06-18] MEDS ORDERED: Levofloxacin 250MG Tablet ONE (02:25)
[2018-06-18 02:28] VITALS: PULSE 64
[2018-06-18 02:37] VITALS: BP 144/90
--- NOTE | 2018-06-18 09:24 | XRAY ---
Indication: Chest pain. Comparison: June 16, 2018. Portable apical lordotic chest unchanged again with left hemidiaphragm elevation, left base discoid atelectasis/scarring, and a few scattered calcified granulomas. Heart and mediastinal structures stable and within normal limits. No new/acute findings.
== END 2018-06-18 02:36 | disposition home or self-care (01) ==
LOC: ED 00:41
DX: J40 Bronchitis, not specified as acute or chronic (principal); J18.1 Lobar pneumonia, unspecified organism
CPT/HCPCS: 36000; 36415; 71045; 80053; 84484; 85025; 93005; 96360; 99284; A9270-GY

== ENCOUNTER 2018-07-15 19:32 | Observation (INO) | payer MEDICAID, OTHER ==
[2018-07-15] MEDS ORDERED: BABY ASPIRIN 81 MG CHEW PO ONE (20:07)
[2018-07-15] MEDS ORDERED: Nitrostat 0.4 MG (ED) SL ONE ×4 (20:07→22:37)
--- NOTE | 2018-07-15 20:09 | ERPHSYRPT ---
- History of Present Illness Time Seen by Provider: 07/15/18 20:00 Patient Subjective Stated Complaint: pt is alert and oriented. pt is ambulatory with a steady gait. pt comes in from shelter having a chest pain. pt states he's having chest pain and sob, diaphoresis, tinitus, dizziness, and nausea. pt states his pain started an hour ago while he was resting. pt heart sounds strong and regular. pt is sinus rhythm on the monitor, no ST elevations or depressions noted. pt radial pulses equal and strong. pt does not appear to be diaphoretic. pt skin is pwd. Triage Nursing Assessment: see above Physician History: PATIENT WITH A HISTORY OF METHAMPHETAMINE ABUSE, HAS BEEN INCARCERATED IN RESIDENTIAL SINCE 05/31/2018 WITH HIS 7TH EMERGENCY ROOM VISIT FOR CHEST PAIN OVER THE PAST 6 WEEKS. DIAGNOSED WITH HYPERTENSION 4 WEEKS AGO, HAD ONSET OF SUBSTERNAL SHARP PAIN 1 HOUR PRIOR TO ARRIVAL, HAS ASSOCIATED DYSPNEA, DIAPHORESIS. RATES HIS PAIN A 8/10 Timing/Duration: today Activities at Onset: none Quality: pressure, sharpness Location: substernal Chest Pain Radiation: no radiation Severity of Pain-Max: moderate Severity of Pain-Current: moderate Modifying Factors: Improves With: nothing Associated Symptoms: shortness of breath, diaphoresis Prior Chest Pain/Cardiac Workup: non-cardiac (MULTIPLE EMERGENCY ROOM VISITS ON 05/31, 06/03, 06/05, 06/06, 06/17, 06/18/2018) Nitro Today/Relief: 0.4 mg x 2, mild relief Aspirin Treatment Today: 81 mg x 4, provided by ED Allergies/Adverse Reactions: Penicillins Allergy (Verified 06/18/18 01:13) Home Medications: Metoprolol Tartrate 25 mg [Lopressor 25MG Tab] 50 mg PO DAILY 06/06/18 [ History] Lisinopril 20 mg [Zestril 20 MG] 1 tab PO DAILY 06/16/18 [History] Ibuprofen 800 mg PO Q6H PRN PRN 07/15/18 [History] Hx Tetanus, Diphtheria Vaccination/Date Given: Yes Hx Influenza Vaccination/Date Given: No Hx Pneumococcal Vaccination/Date Given: No Immunizations Up to Date: Yes - Review of Systems Constitutional: No Fever, No Chills Eyes: No Symptoms Ears, Nose, & Throat: No Symptoms Respiratory: Dyspnea, No Cough Cardiac: Chest Pain, Other (DIAPHORESIS), No Edema, No Syncope Abdominal/Gastrointestinal: No Symptoms, Appetite Changes, No Abdominal Pain, No Nausea, No Vomiting, No Diarrhea Genitourinary Symptoms: No Symptoms, No Dysuria Musculoskeletal: No Symptoms, No Back Pain, No Neck Pain Skin: No Rash Neurological: No Dizziness, No Focal Weakness, No Sensory Changes Psychological: No Symptoms Endocrine: No Symptoms All Other Systems: Reviewed and Negative - Past Medical History Pertinent Past Medical History: Yes Neurological History: No Pertinent History ENT History: No Pertinent History Cardiac History: Hypertension Respiratory History: No Pertinent History Endocrine Medical History: No Pertinent History Musculoskeletal History: No Pertinent History GI Medical History: No Pertinent History History: No Pertinent History Psycho-Social History: No Pertinent History Male Reproductive Disorders: No Pertinent History - Past Surgical History Past Surgical History: Yes Neuro Surgical History: No Pertinent History Cardiac: No Pertinent History Respiratory: No Pertinent History Gastrointestinal: No Pertinent History Genitourinary: No Pertinent History Musculoskeletal: No Pertinent History Male Surgical History: No Pertinent History Other Surgical History: SPLEEN REMOVED - Social History Smoking Status: Former smoker How long have you smoked: YRS Exposure to second hand smoke: No Drug Use: none Patient Lives Alone: No - Nursing Vital Signs Nursing Vital Signs: Initial Vital Signs Pulse Rate 85 07/15/18 19:35 Respiratory Rate 18 07/15/18 19:35 Blood Pressure 171/100 07/15/18 19:35 O2 Sat by Pulse Oximetry 95 07/15/18 19:35 Pain Scale Pain Intensity 4 - Physical Exam General Appearance: no apparent distress, alert Eye Exam: PERRL/EOMI, eyes nml inspection Ears, Nose, Throat Exam: normal ENT inspection, moist mucous membranes Neck Exam: normal inspection, non-tender, supple, full range of motion Respiratory Exam: normal breath sounds, lungs clear, No respiratory distress Cardiovascular Exam: regular rate/rhythm, normal heart sounds Gastrointestinal/Abdomen Exam: soft, normal bowel sounds, No tenderness, No mass Back Exam: normal inspection, No CVA tenderness, No vertebral tenderness Extremity Exam: normal inspection, normal range of motion Neurologic Exam: alert, oriented x 3, cooperative, normal mood/affect, sensation nml, No motor deficits Skin Exam: normal color, warm, dry SpO2: 95 - Course EKG Interpreted by Me: RATE, Sinus Rhythm, NORMAL AXIS (FLAT T-WAVES AVL,V5 V6) Rhythm Strip: Normal Sinus Rhythm - Radiology Exams Chest X-ray Interpretation: Interpreted by me (LEFT BASILAR SCARRING) - CT Exams Chest CT Interpretation: Tele-radiologist Report (NO EVIDENCE OF PULMONARY EMBOLISM. LEFT BASILAR AIRSPACE CONSOLIDATION, MILD CENTRILOBULAR EMPHYSEMATOUS DISEASE) Ordered Tests: Active Orders 24 hr Category Date Time Status Up With Assistance ROUTINE Activity 07/15/18 23:35 Ordered Call Admit Doctor for Orders ROUTINE Care 07/15/18 23:33 Ordered Time Cycle Operator STAT Care 07/15/18 20:08 Active Code Status Order ROUTINE Care 07/15/18 23:34 Ordered EKG-ER Only STAT Care 07/15/18 20:07 Active IV Care Q6H Care 07/15/18 23:34 Ordered IV Insertion STAT Care 07/15/18 20:07 Active Implement Chest Pain Pathway ROUTINE Care 07/15/18 23:[address] in Observation ROUTINE Care 07/15/18 23:34 Ordered Asim Hose, Apply ROUTINE Care 07/15/18 23:34 Ordered Vital Signs Q4H Care 07/15/18 23:33 Ordered Weight,Daily 0600 Care 07/15/18 23:34 Ordered Cardiac Diet Diet 07/15/18 Breakfast Ordered CHEST 1 VIEW (PORTABLE) Stat Exams 07/15/18 20:08 Taken CHEST WITH CONTRAST [CT] Stat Exams 07/15/18 20:40 Taken BLOOD CULTURE Stat Lab 07/15/18 23:16 Ordered CBC W DIFF Stat Lab 07/15/18 19:45 Completed CMP Stat Lab 07/15/18 19:45 Completed D-DIMER QUANTITATION Stat Lab 07/15/18 19:45 Completed LIPID PROFILE AM.LAB Lab 07/16/18 04:00 Ordered NT PRO BNP Stat Lab 07/15/18 19:45 Completed PROTIME WITH INR Stat Lab 07/15/18 19:45 Completed TROPONIN Q3H Lab 07/15/18 19:45 Completed TROPONIN Q3H Lab 07/15/18 23:15 Ordered TROPONIN Q3H Lab 07/16/18 02:15 Ordered TROPONIN Q3H Lab 07/16/18 05:15 Ordered TROPONIN Q3H Lab 07/16/18 08:15 Ordered EKG Q8HX2,QAMX3,PRN RT 07/15/18 23:34 Ordered Oxygen Nasal Cannula 2 lpm RT 07/15/18 23:33 Ordered Pulse Oximetry Q4H RT 07/15/18 23:34 Ordered Transfer Order Routine Transfer 07/15/18 Ordered Medication Summary Generic Name Dose Route Start Last Admin Trade Name Freq PRN Reason Stop Dose Admin Sodium Chloride 1,000 mls @ 50 mls/hr 07/15/18 20:15 07/15/18 20:33 Sodium Chloride 0.9% 1000 Ml IV 08/14/18 20:14 50 mls/hr .Q20H GONZALEZ Administration Ceftriaxone Sodium/Dextrose 1 g in 50 mls @ 100 mls/hr 07/15/18 23:16 Rocephin 1 Gm-D5w 50 Ml Bag IV 07/15/18 23:45 STAT STA Azithromycin 500 mg in 250 mls @ 250 mls/hr 07/15/18 23:16 Zithromax 500 Mg/ 250 Ml Nacl Premix IV 07/16/18 00:15 STAT STA Discontinued Medications Generic Name Dose Route Start Last Admin Trade Name Cara PRN Reason Stop Dose Admin Aspirin 324 mg 07/15/18 20:07 07/15/18 20:32 Baby Aspirin 81 Mg Chew PO 07/15/18 20:08 324 mg STAT ONE Administration Aspirin Confirm 07/15/18 20:29 Baby Aspirin 81 Mg Chew Administered 07/15/18 20:30 Dose 324 mg .ROUTE .STK-MED ONE Nitroglycerin 0.4 mg 07/15/18 20:07 07/15/18 20:32 Nitrostat 0.4 Mg (Ed) SL 07/15/18 20:08 0.4 mg STAT ONE Administration Nitroglycerin Confirm 07/15/18 20:29 Nitrostat 0.4 Mg (Ed) Administered 07/15/18 20:30 Dose 0.4 mg SL .STK-MED ONE Nitroglycerin 0.4 mg 07/15/18 21:58 07/15/18 22:44 Nitrostat 0.4 Mg (Ed) SL 07/15/18 21:59 0.4 mg STAT ONE Administration Nitroglycerin 1 gm 07/15/18 21:58 07/15/18 22:44 Nitro-Bid 2% Ud Packets TOP 07/15/18 21:59 1 gm STAT ONE Administration Nitroglycerin Confirm 07/15/18 22:37 Nitro-Bid 2% Ud Packets Administered 07/15/18 22:38 Dose 1 gm .ROUTE .STK-MED ONE Nitroglycerin Confirm 07/15/18 22:37 Nitrostat 0.4 Mg (Ed) Administered 07/15/18 22:38 Dose 0.4 mg SL .STK-MED ONE Lab/Rad Data: Laboratory Result Diagrams 07/15/18 19:45 07/15/18 19:45 Laboratory Results 07/15/18 07/15/18 07/15/18 Range/Units 19:45 19:45 19:45 WBC (4.0-10.5) K/mm3 RBC (4.1-5.6) M/mm3 Hgb (12.5-18.0) gm/dl Hct (42-50) % MCV (78-100) fl MCH (26-32) pg MCHC (32-36) g/dl RDW (11.5-14.0) % Plt Count (150-450) K/mm3 MPV (6-9.5) fl Gran % (36.0-66.0) % Eos # (Auto) (0-0.5) Absolute Lymphs (auto) (1.0-4.6) Absolute Monos (auto) (0.0-1.3) Lymphocytes % (24.0-44.0) % Monocytes % (0.0-12.0) % Eosinophils % (0.00-5.0) % Basophils % (0.0-0.4) % Absolute Granulocytes (1.4-6.9) Basophils # (0-0.4) PT 11.9 (8.83-12.87) SECONDS INR 1.02 (0.8-3.0) D-Dimer 559 H* (215-500) ng/mL Sodium 141 (137-145) mmol/L Potassium 3.8 (3.5-5.1) mmol/L Chloride 102 (98-107) mmol/L Carbon Dioxide 31 H (22-30) mmol/L Anion Gap 12.0 (5-15) MEQ/L BUN 11 (9-20) mg/dL Creatinine 0.93 (0.66-1.25) mg/dL Estimated GFR > 60.0 ML/MIN Glucose 91 (74-106) mg/dL Calcium 9.3 (8.4-10.2) mg/dL Total Bilirubin 0.30 (0.2-1.3) mg/dL AST 25 (17-59) U/L ALT 25 (0-50) U/L Alkaline Phosphatase 76 (38-126) U/L Troponin I < 0.012 (0.000-0.034) ng/mL NT-Pro-B Natriuret Pep 101 (0-900) pg/mL Serum Total Protein 7.9 (6.3-8.2) g/dL Albumin 4.2 (3.5-5.0) g/dL Slides for Path Review 07/15/18 Range/Units 19:45 WBC 12.2 H (4.0-10.5) K/mm3 RBC 5.11 (4.1-5.6) M/mm3 Hgb 15.3 (12.5-18.0) gm/dl Hct 45.7 (42-50) % MCV 89.4 (78-100) fl MCH 29.9 (26-32) pg MCHC 33.5 (32-36) g/dl RDW 14.6 H (11.5-14.0) % Plt Count 474 H (150-450) K/mm3 MPV 9.8 H (6-9.5) fl Gran % 48.7 (36.0-66.0) % Eos # (Auto) 0.26 (0-0.5) Absolute Lymphs (auto) 4.03 (1.0-4.6) Absolute Monos (auto) 1.95 H (0.0-1.3) Lymphocytes % 33.0 (24.0-44.0) % Monocytes % 16.0 H (0.0-12.0) % Eosinophils % 2.1 (0.00-5.0) % Basophils % 0.2 (0.0-0.4) % Absolute Granulocytes 5.93 (1.4-6.9) Basophils # 0.03 (0-0.4) PT (8.83-12.87) SECONDS INR (0.8-3.0) D-Dimer (215-500) ng/mL Sodium (137-145) mmol/L Potassium (3.5-5.1) mmol/L Chloride (98-107) mmol/L Carbon Dioxide (22-30) mmol/L Anion Gap (5-15) MEQ/L BUN (9-20) mg/dL Creatinine (0.66-1.25) mg/dL Estimated GFR ML/MIN Glucose (74-106) mg/dL Calcium (8.4-10.2) mg/dL Total Bilirubin (0.2-1.3) mg/dL AST (17-59) U/L ALT (0-50) U/L Alkaline Phosphatase (38-126) U/L Troponin I (0.000-0.034) ng/mL NT-Pro-B Natriuret Pep (0-900) pg/mL Serum Total Protein (6.3-8.2) g/dL Albumin (3.5-5.0) g/dL Slides for Path Review YES - Progress Progress Note: 07/15/18 23:22 ADMINISTERED 4 BABY ASA, NTG 0.4MG SL X 4, AFTER 2 SETS OF BLOOD CULTURES IV ROCEPHIN 1GM, ZITHROMAX 500MG IVPB Blood Culture(s) Obtained: Yes Antibiotics given: Yes Discussed with Dr.: Washington (DISCUSSED WITH DR WASHINGTON AT 2320 FOR OBSERVATION) - Departure Departure Disposition: Observation Clinical Impression: ATYPICAL CHEST PAIN, PNEUMONIA Condition: Stable Critical Care Time: No Referrals: DOCTOR,NO FAMILY [Primary Care Provider] -
[2018-07-15] MEDS ORDERED: Sodium Chloride 0.9% 1000 ML 1,000 ML IV SCH (20:15)
[2018-07-15 20:20] LABS: BASOPHIL % 0.2 % (0.0-0.4); Basophil (Absolute #) 0.03 (0-0.4); Eosinophil % 2.1 % (0.00-5.0); Eosinophil (Absolute #) 0.26 (0-0.5); Granulocyte Absolute (ANC) 5.93 (1.4-6.9); Granulocytes % 48.7 % (36.0-66.0); Hematocrit 45.7 % (42-50); Hemoglobin 15.3 gm/dl (12.5-18.0); Lymphocyte (Absolute #) 4.03 (1.0-4.6); Mean Cell Volume 89.4 fl (78-100); Mean Corpuscular Hemoglobin 29.9 pg (26-32); Mean Corpuscular Hgb Concent. 33.5 g/dl (32-36); Mean Platelet Volume 9.8 fl (6-9.5); Monocyte (Absolute #) 1.95 (0.0-1.3); Platelet Count 474 K/mm3 (150-450); Red Blood Count 5.11 M/mm3 (4.1-5.6); Red Cell Distribution Width 14.6 % (11.5-14.0); White Blood Count 12.2 K/mm3 (4.0-10.5)
[2018-07-15] MEDS ORDERED: BABY ASPIRIN 81 MG CHEW ONE (20:29)
[2018-07-15 20:41] LABS: ALBUMIN 4.2 g/dL (3.5-5.0); ALKALINE PHOSPHATASE 76 U/L (38-126); BLOOD UREA NITROGEN 11 mg/dL (9-20); CHLORIDE 102 mmol/L (98-107); Calcium 9.3 mg/dL (8.4-10.2); Carbon Dioxide 31 mmol/L (22-30); Creatinine 1 0.93 mg/dL (0.66-1.25); Glucose 91 mg/dL (74-106); NT PRO BNP 101 pg/mL (0-900); Potassium 3.8 mmol/L (3.5-5.1); SGOT/AST 25 U/L (17-59); SGPT/ALT 25 U/L (0-50); SODIUM 141 mmol/L (137-145); Total Protein 7.9 g/dL (6.3-8.2)
[2018-07-15 20:43] LABS: INR 1.02 (0.8-3.0); PROTIME 11.9 SECONDS (8.83-12.87)
[2018-07-15 20:54] LABS: Slide Review 1 YES
[2018-07-15] MEDS ORDERED: NITRO-BID 2% UD PACKETS TOP ONE (21:58)
[2018-07-15] MEDS ORDERED: NITRO-BID 2% UD PACKETS ONE (22:37)
[2018-07-15] MEDS ORDERED: Zithromax 500 MG/ 250 ML NaCl Premix 500 MG/250 ML IVPB IV STA (23:16)
[2018-07-15] MEDS ORDERED: ROCEPHIN 1 Gm-D5w 50 ml Bag** 1 G/50 ML IVPB IV STA (23:16)
[2018-07-15] MEDS ORDERED: TYLENOL 325 MG PO PRN (23:33)
[2018-07-15] MEDS ORDERED: Zofran 4 MG/2 ML VIAL IV PRN (23:33)
[2018-07-15] MEDS ORDERED: MAALOX ES 30 ML UNIT DOSE PO PRN (23:33)
[2018-07-15] MEDS ORDERED: Senokot-S Tablet PO PRN (23:33)
[2018-07-15] MEDS ORDERED: MILK OF MAGNESIA 30 ML PO PRN (23:33)
[2018-07-15] MEDS ORDERED: Zithromax 500 MG/ 250 ML NaCl Premix 500 MG/250 ML IVPB IV ONE (23:53)
[2018-07-16] MEDS ORDERED: DUONEB 0.5-3 MG/3 ml Neb IH PRN (02:23)
[2018-07-16] MEDS ORDERED: DUONEB 0.5-3 MG/3 ml Neb IH SCH (03:00)
[2018-07-16 04:00] VITALS: PULSE 70
[2018-07-16] MEDS ORDERED: NITRO-BID 2% UD PACKETS TOP SCH (06:00)
[2018-07-16 06:15] LABS: Risk Ratio 5.3
--- NOTE | 2018-07-16 07:54 | XRAY ---
Indication: Chest pain. Elevated d-dimer. Multiple contiguous axial images obtained through the chest using 80 cc Isovue 370 contrast and PE protocol. Comparison: None There is good opacification of the pulmonary arteries to include the lobar and segmental branches. Mild respiration artifact limits evaluation for distal pulmonary emboli. No central pulmonary embolus. Heart is not enlarged. Aorta minimally arteriosclerotic without aneurysm/dissection. Right hilar calcified node. No pathologic mediastinal/hilar lymphadenopathy. Examination of the lung parenchyma demonstrates mild pulmonary emphysema, mild bilateral dependent atelectasis, left base subsegmental atelectasis, right mid lung calcified granuloma, and 5 mm right upper lobe noncalcified nodule. No infiltrate or effusion. Bony thorax intact with flowing osteophytes throughout the spine. 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 Impression: 1. Pulmonary embolus evaluation limited by respiration artifact. No central pulmonary embolus. 2. Calcified and noncalcified granulomas. 3. Pulmonary emphysema and scattered atelectasis. Comment: Preliminary interpretation was made by [facility]. No critical discrepancy. CTDI 21.30
--- NOTE | 2018-07-16 07:56 | XRAY ---
Indication: Dyspnea. Comparison: June 18, 2018. Portable chest unchanged again hyperinflated with left hemidiaphragm elevation, left base subsegmental atelectasis/scarring, and right midlung calcified granuloma. No focal infiltrate, consolidation, or large effusion. Heart is not enlarged. Bony thorax intact again with mild degenerative changes. Impression: Stable nonacute chest with chronic features.
--- NOTE | 2018-07-16 08:10 | PCM.DCORD ---
- Discharge Discharge Date: 07/16/18 Prescriptions: Continue Metoprolol Tartrate 25 mg [Lopressor 25MG Tab] 50 mg PO DAILY Lisinopril 20 mg [Zestril 20 MG] 1 tab PO DAILY Additional Instructions: Will need to consult with a hospice spiritual care coordinator TOD Follow up with: DOCTOR,NO FAMILY [Primary Care Provider] - 1 Week
[2018-07-16 09:30] VITALS: BP 102/53; O2SAT 94
[2018-07-16] MEDS ORDERED: Zestril 20 MG PO SCH (10:00)
[2018-07-16] MEDS ORDERED: Lopressor 25MG Tab PO SCH ×2 (10:00)
[2018-07-16] MEDS ORDERED: Lopressor 50 MG PO SCH (10:00)
[2018-07-16] MEDS ORDERED: Ecotrin 325 MG PO SCH (10:00)
[2018-07-16] MEDS ORDERED: ZITHROMAX IV 500 MG*** 500 MG in Sodium Chloride 0.9% 250 ML 250 ML IV SCH (22:00)
[2018-07-16] MEDS ORDERED: ROCEPHIN 1 Gm-D5w 50 ml Bag** 1 G/50 ML IVPB IV SCH (22:00)
--- NOTE | 2018-07-19 13:17 | SSS ---
DISCHARGE DIAGNOSES: CHEST WALL PAIN. HOSPITAL COURSE: This is a 62 year-old white male patient currently incarcerated in the local snf for history of methamphetamine abuse. During his stay since 05/31/2018 he has had seven visits to the emergency room for complaints of chest pain. He was diagnosed with hypertension on these visits and started on SUZY inhibitors and beta elizabeth medication. On evaluation at this time the patient complains of left sternal chest discomfort. He also complains of left hand numbness. The patient denied any recent upper respiratory tract infection symptoms, no cough. No fever, chills or sweats. He reports he had not seen a doctor prior to the time of his being incarcerated. The patient's evaluation shows that he does have some left general discomfort with palpation which does reproduce his pain. PAST MEDICAL/SURGICAL HISTORY: Essentially unremarkable as he has had no routine health care. CURRENT MEDICATIONS: Metoprolol 25 mg daily, lisinopril 20 mg daily, ibuprofen 800 mg every six hours PRN. ALLERGIES: PENICILLIN. PHYSICAL EXAMINATION: Evaluation in the emergency room showed a pulse of 85, respiratory rate 18, blood pressure 171/100. O2 saturation 95%. He is currently sitting up on the side of the bed eating his breakfast. HEENT: Normocephalic, atraumatic. Pupils equal round reactive to light. Extraocular movements intact. Oropharynx is pink and moist. NECK: Supple without lymphadenopathy, thyromegaly or JVD. CHEST: Clear to auscultation with good air movement bilaterally. There is tenderness reproduced at the left sternal border. HEART: Regular rate and rhythm without murmurs, rubs or gallops. ABDOMEN: Soft. No palpable masses. EXTREMITIES: Without cyanosis, clubbing or edema. NEUROLOGIC: The patient is alert and oriented x3. No focal deficits were noted. LAB DATA AND TESTS: Showed his lipid panel with total cholesterol of 177, HDL 34, LDL 119. His troponins have all been less than 0.012. His white count was slightly elevated at 12,200, hemoglobin 15.3, PLT count 474,000. He has no left shift on his differential. The metabolic panel showed glucose 91, BUN 11, creatinine 0.93. Electrolytes were normal. Liver enzymes were normal. ProBNP normal. The patient's D-dimer was slightly elevated at 559 with normal being up to 500 being normal in our lab. He had therefore had a chest CT with pulmonary embolism protocol which was negative for pulmonary embolism. There was also no evidence of any lung illness as far as no focal infiltrate, consolidation or effusion. ASSESSMENT: A patient with left sternal chest pain consistent with chest wall pain. We had essentially ruled out myocardial infarction. I suggested the patient have cardiology consultation but we were unable to obtain that because of it being Wednesday morning we can only get tele-cardiology consultation on the weekend. We feel that he could be safely discharged back to snf at this time with the recommendation to follow up with a workforce management analyst consultation so we can put this issue at rest that he does not have coronary artery disease.
== END 2018-07-16 10:52 | disposition home or self-care (01) ==
LOC: ED 19:32 → MED SURG 07-16 01:25
PROVIDERS: ADMIT Family Medicine; ATTEND Family Medicine
DX: R07.89 Other chest pain (principal); I10 Essential (primary) hypertension; R20.0 Anesthesia of skin; Z79.899 Other long term (current) drug therapy
CPT/HCPCS: 36000; 36415; 71045; 71260; 80053; 80061; 83721; 83880; 84484; 85025; 85379; 85610; 87040; 93005; 93041; 96360; 96361; 96365; 96367; 99285; J0456; J0696; A9270-GY

== ENCOUNTER 2018-07-16 18:47 | Emergency (ER) | payer MEDICAID, OTHER ==
--- NOTE | 2018-07-16 19:24 | ERPHSYRPT ---
- History of Present Illness Time Seen by Provider: 07/16/18 18:55 Historian: patient Exam Limitations: no limitations Patient Subjective Stated Complaint: Pt states "I am back again. Same thing that brought me here last time. I do not feel well and my blood pressure is up again." Triage Nursing Assessment: PT presented at the ambulance doors with retirement staff. Pt ambulates with an upright steady gait, able to speak in clear full sentences. PT in no apprent respiratory distress. Physician History: 62 y/o white male, with h/o htn, incarcerated resident at local snf presents to this ED the 8th time in approx 6 weeks for cp. pt admitted last pm and discharged to home this am from this hospital with normal troponin and cta chest without acute process and no pulmonary embolism. pt has had extensive work up each visit. pt is on lisinopril and metoprolol. Timing/Duration: today Activities at Onset: none Quality: sharpness Location: substernal Chest Pain Radiation: no radiation Severity of Pain-Max: mild Severity of Pain-Current: mild Modifying Factors: Improves With: nothing Associated Symptoms: denies symptoms, No nausea, No vomiting, No headache, No dizziness Prior Chest Pain/Cardiac Workup: recently seen/treated, recent hospitalization Nitro Today/Relief: no nitro taken today Aspirin Treatment Today: no aspirin today Allergies/Adverse Reactions: Penicillins Allergy (Verified 07/16/18 01:56) Home Medications: Metoprolol Tartrate 25 mg [Lopressor 25MG Tab] 50 mg PO BID 06/06/18 [ History] Lisinopril 20 mg [Zestril 20 MG] 10 mg PO HS 06/16/18 [History] Ibuprofen 800 mg PO BID 07/16/18 [History] Hx Tetanus, Diphtheria Vaccination/Date Given: No Hx Influenza Vaccination/Date Given: No Hx Pneumococcal Vaccination/Date Given: No Immunizations Up to Date: Yes - Review of Systems Constitutional: No Symptoms Eyes: No Symptoms Ears, Nose, & Throat: No Symptoms Respiratory: No Symptoms Cardiac: Chest Pain Abdominal/Gastrointestinal: No Symptoms Genitourinary Symptoms: No Symptoms Musculoskeletal: No Symptoms Skin: No Symptoms Neurological: No Symptoms Psychological: No Symptoms Endocrine: No Symptoms Hematologic/Lymphatic: No Symptoms Immunological/Allergic: No Symptoms All Other Systems: Reviewed and Negative - Past Medical History Pertinent Past Medical History: Yes Neurological History: No Pertinent History ENT History: No Pertinent History Cardiac History: Hypertension Respiratory History: No Pertinent History Endocrine Medical History: No Pertinent History Musculoskeletal History: No Pertinent History GI Medical History: No Pertinent History History: No Pertinent History Psycho-Social History: No Pertinent History Male Reproductive Disorders: No Pertinent History - Past Surgical History Past Surgical History: Yes Neuro Surgical History: No Pertinent History Cardiac: No Pertinent History Respiratory: No Pertinent History Gastrointestinal: No Pertinent History Genitourinary: No Pertinent History Musculoskeletal: No Pertinent History Male Surgical History: No Pertinent History Other Surgical History: SPLEEN REMOVED-several years ago - Social History Smoking Status: Former smoker How long have you smoked: YRS Exposure to second hand smoke: No Drug Use: none Patient Lives Alone: No - Nursing Vital Signs Nursing Vital Signs: Initial Vital Signs Temperature 99.1 F 07/16/18 18:48 Pulse Rate 94 H 07/16/18 18:48 Respiratory Rate 18 07/16/18 18:48 Blood Pressure 161/101 07/16/18 18:48 O2 Sat by Pulse Oximetry 96 07/16/18 18:48 Pain Scale Pain Intensity 0 - Physical Exam General Appearance: no apparent distress, alert, anxiety Eye Exam: PERRL/EOMI Ears, Nose, Throat Exam: normal ENT inspection, moist mucous membranes Neck Exam: normal inspection, non-tender, supple, full range of motion Respiratory Exam: normal breath sounds, chest tenderness, lungs clear, airway intact, No respiratory distress Cardiovascular Exam: regular rate/rhythm, normal heart sounds, normal peripheral pulses Gastrointestinal/Abdomen Exam: soft, normal bowel sounds, No tenderness Back Exam: normal inspection, normal range of motion, No CVA tenderness, No vertebral tenderness Extremity Exam: normal inspection, normal range of motion, pelvis stable Neurologic Exam: alert, oriented x 3, cooperative, herbologist II-XII 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 Skin Exam: normal color, warm, dry Lymphatic Exam: No adenopathy SpO2 Interpretation: normal SpO2: 96 O2 Delivery: Room Air - Course Nursing assessment & vital signs reviewed: Yes EKG Interpreted by Me: RATE (92), Sinus Rhythm, NORMAL AXIS, Non-specific ST Changes, Other (no change from comparison ekg) Ordered Tests: Active Orders 24 hr Category Date Time Status EKG-ER Only STAT Care 07/16/18 19:15 Active TROPONIN Q3H Lab 07/16/18 19:31 Completed TROPONIN Q3H Lab 07/16/18 22:30 Ordered TROPONIN Q3H Lab 07/17/18 01:30 Ordered TROPONIN Q3H Lab 07/17/18 04:30 Ordered TROPONIN Q3H Lab 07/17/18 07:30 Ordered Lab/Rad Data: Laboratory Results 07/16/18 Range/Units 19:31 Troponin I < 0.012 (0.000-0.034) ng/mL - Progress Progress: unchanged Air Movement: good Blood Culture(s) Obtained: No Antibiotics given: No Counseled pt/family regarding: lab results, diagnosis, need for follow-up - Departure Departure Disposition: Home Clinical Impression: Chronic chest pain, Malingering Condition: Stable Critical Care Time: No Referrals: DOCTOR,NO FAMILY [Primary Care Provider] - Additional Instructions: follow up with your prescribing doctor and air carrier operations inspector for further management
[2018-07-16 20:21] VITALS: BP 178/100; PULSE 72; O2SAT 98
== END 2018-07-16 20:23 | disposition home or self-care (01) ==
LOC: ED 18:47
DX: R07.9 Chest pain, unspecified (principal); G89.29 Other chronic pain; Z76.5 Malingerer [conscious simulation]; I10 Essential (primary) hypertension; Z79.899 Other long term (current) drug therapy
CPT/HCPCS: 36415; 84484; 93005; 99284

== ENCOUNTER 2018-07-20 21:58 | Emergency (ER) | payer OTHER, MEDICAID ==
[2018-07-20] MEDS ORDERED: Sodium Chloride 0.9% 1000 ML 1,000 ML IV SCH (22:15)
[2018-07-20] MEDS ORDERED: APRESOLINE 20 MG/ML INJ IV ONE (22:16)
[2018-07-20] MEDS ORDERED: Catapres 0.1 MG PO ONE (22:16)
[2018-07-20] MEDS ORDERED: Catapres 0.1 MG ONE (22:25)
[2018-07-20] MEDS ORDERED: Sodium Chloride 0.9% 1000 ML 1,000 ML ONE (22:26)
[2018-07-20] MEDS ORDERED: APRESOLINE 20 MG/ML INJ ONE (22:26)
[2018-07-20 22:43] LABS: BASOPHIL % 0.8 % (0.0-0.4); Basophil (Absolute #) 0.08 (0-0.4); Eosinophil % 3.2 % (0.00-5.0); Eosinophil (Absolute #) 0.32 (0-0.5); Granulocyte Absolute (ANC) 5.08 (1.4-6.9); Granulocytes % 51.1 % (36.0-66.0); Hematocrit 46.1 % (42-50); Hemoglobin 15.5 gm/dl (12.5-18.0); Lymphocyte (Absolute #) 3.66 (1.0-4.6); Lymphocytes % 36.7 % (24.0-44.0); Mean Cell Volume 90.2 fl (78-100); Mean Corpuscular Hemoglobin 30.3 pg (26-32); Mean Corpuscular Hgb Concent. 33.6 g/dl (32-36); Mean Platelet Volume 9.1 fl (6-9.5); Monocyte (Absolute #) 0.82 (0.0-1.3); Monocytes % 8.2 % (0.0-12.0); Platelet Count 578 K/mm3 (150-450); Red Blood Count 5.11 M/mm3 (4.1-5.6); Red Cell Distribution Width 14.3 % (11.5-14.0)
[2018-07-20 22:54] LABS: ANION GAP 15.9 MEQ/L (5-15); BLOOD UREA NITROGEN 11 mg/dL (9-20); CHLORIDE 102 mmol/L (98-107); Calcium 9.4 mg/dL (8.4-10.2); Carbon Dioxide 28 mmol/L (22-30); Creatinine 1 0.86 mg/dL (0.66-1.25); Glucose 103 mg/dL (74-106); SODIUM 142 mmol/L (137-145)
[2018-07-20] MEDS ORDERED: NITRO-BID 2% UD PACKETS TOP ONE (22:54)
[2018-07-20] MEDS ORDERED: BABY ASPIRIN 81 MG CHEW PO ONE (22:54)
--- NOTE | 2018-07-20 22:54 | ERPHSYRPT ---
- History of Present Illness Time Seen by Provider: 07/20/18 22:18 Source: patient Exam Limitations: clinical condition Patient Subjective Stated Complaint: pt here for high blood pressure tonight, he has been here multi times for the same problem. he had hes b/p meds about 45 mins ago, pt is from local care home and brought in by assistant at surgery Triage Nursing Assessment: pt alert, walked in, resp easy, skin w.d.p, no edema noted, he states he feels like "Shit". co not being able to hear out of left ear Physician History: PATIENT WITH A HISTORY OF HYPERTENSION, METHAMPHETAMINE ABUSE COMPLAINS OF CHEST PAIN TONIGHT, HIS 9TH EMERGENCY ROOM VISIT FOR CHEST PAIN SINCE 05/31/2018. ADMITTED TO MED SURG 6 DAYS AGO. DENIES DYSPNEA, DIAPHORESIS OR PALPITATIONS. REFERRED FROM PRISON TO EMERGENCY FOR TREATMENT OF ELEVATED BLOOD PRESSURE. Timing/Duration: today Activities at Onset: none Location: substernal Severity of Pain-Max: mild Severity of Pain-Current: mild Modifying Factors: Improves With: nothing Nitro Today/Relief: no nitro taken today Aspirin Treatment Today: no aspirin today Associated Symptoms: denies symptoms Allergies/Adverse Reactions: Penicillins Allergy (Verified 07/20/18 22:07) Home Medications: Metoprolol Tartrate 25 mg [Lopressor 25MG Tab] 50 mg PO BID 06/06/18 [ History] Lisinopril 20 mg [Zestril 20 MG] 10 mg PO HS 06/16/18 [History] Ibuprofen 800 mg PO BID 07/16/18 [History] Hx Tetanus, Diphtheria Vaccination/Date Given: No Hx Influenza Vaccination/Date Given: No Hx Pneumococcal Vaccination/Date Given: No Immunizations Up to Date: Yes - Review of Systems Constitutional: No Fever, No Chills Eyes: No Symptoms Ears, Nose, & Throat: No Symptoms Respiratory: No Symptoms, No Cough, No Dyspnea Cardiac: Chest Pain, No Edema, No Syncope Abdominal/Gastrointestinal: No Abdominal Pain, No Nausea, No Vomiting, No Diarrhea Genitourinary Symptoms: No Symptoms, No Dysuria Musculoskeletal: No Symptoms, No Back Pain, No Neck Pain Skin: No Symptoms, No Rash Neurological: No Dizziness, No Focal Weakness, No Sensory Changes Psychological: No Symptoms Endocrine: No Symptoms All Other Systems: Reviewed and Negative - Past Medical History Pertinent Past Medical History: Yes Neurological History: No Pertinent History ENT History: No Pertinent History Cardiac History: Hypertension Respiratory History: No Pertinent History Endocrine Medical History: No Pertinent History Musculoskeletal History: No Pertinent History GI Medical History: No Pertinent History History: No Pertinent History Psycho-Social History: No Pertinent History Male Reproductive Disorders: No Pertinent History - Past Surgical History Past Surgical History: Yes Neuro Surgical History: No Pertinent History Cardiac: No Pertinent History Respiratory: No Pertinent History Gastrointestinal: No Pertinent History Genitourinary: No Pertinent History Musculoskeletal: No Pertinent History Male Surgical History: No Pertinent History Other Surgical History: SPLEEN REMOVED-several years ago - Social History Smoking Status: Former smoker How long have you smoked: YRS Exposure to second hand smoke: No Drug Use: none Patient Lives Alone: No - Nursing Vital Signs Nursing Vital Signs: Initial Vital Signs Temperature 99.2 F 07/20/18 21:59 Pulse Rate 79 07/20/18 21:59 Respiratory Rate 16 07/20/18 21:59 Blood Pressure 196/120 07/20/18 21:59 O2 Sat by Pulse Oximetry 99 07/20/18 21:59 Pain Scale Pain Intensity 5 - Physical Exam General Appearance: no apparent distress, alert Eye Exam: PERRL/EOMI, eyes nml inspection Ears, Nose, Throat Exam: normal ENT inspection, moist mucous membranes Neck Exam: normal inspection, non-tender, supple Respiratory Exam: normal breath sounds, lungs clear, No respiratory distress Cardiovascular Exam: regular rate/rhythm, normal heart sounds, No edema Gastrointestinal/Abdomen Exam: soft, No tenderness, No mass Back Exam: normal inspection, No CVA tenderness, No vertebral tenderness Extremity Exam: normal inspection, normal range of motion Neurologic Exam: alert, oriented x 3, cooperative, normal mood/affect, nml cerebellar function, sensation nml, No motor deficits Skin Exam: normal color, warm, dry Lymphatic Exam: No adenopathy SpO2: 99 - Course EKG Interpreted by Me: RATE, Sinus Rhythm, NORMAL AXIS Ordered Tests: Active Orders 24 hr Category Date Time Status Design Consultant STAT Care 07/20/18 22:12 Active EKG-ER Only STAT Care 07/20/18 22:11 Active BMP Stat Lab 07/20/18 22:35 Completed CBC W DIFF Stat Lab 07/20/18 22:35 Completed TROPONIN Q3H Lab 07/20/18 22:35 Completed TROPONIN Q3H Lab 07/21/18 01:15 Ordered TROPONIN Q3H Lab 07/21/18 04:15 Ordered TROPONIN Q3H Lab 07/21/18 07:15 Ordered TROPONIN Q3H Lab 07/21/18 10:15 Ordered Urine Triage Profile Stat Lab 07/20/18 23:43 Completed Medication Summary Generic Name Dose Route Start Last Admin Trade Name Cara PRN Reason Stop Dose Admin Sodium Chloride 1,000 mls @ 50 mls/hr 07/20/18 22:15 07/20/18 22:36 Sodium Chloride 0.9% 1000 Ml IV 08/19/18 22:14 50 mls/hr .Q20H GONZALEZ Administration Discontinued Medications Generic Name Dose Route Start Last Admin Trade Name Freq PRN Reason Stop Dose Admin Aspirin 324 mg 07/20/18 22:54 07/20/18 22:59 Baby Aspirin 81 Mg Chew PO 07/20/18 22:55 324 mg STAT ONE Administration Aspirin Confirm 07/20/18 22:58 Baby Aspirin 81 Mg Chew Administered 07/20/18 22:59 Dose 324 mg .ROUTE .STK-MED ONE Clonidine 0.1 mg 07/20/18 22:16 07/20/18 22:36 Catapres 0.1 Mg PO 07/20/18 22:17 0.1 mg STAT ONE Administration Clonidine Confirm 07/20/18 22:25 Catapres 0.1 Mg Administered 07/20/18 22:26 Dose 0.1 mg .ROUTE .STK-MED ONE Hydralazine HCl 20 mg 07/20/18 22:16 07/20/18 22:36 Apresoline 20 Mg/Ml Inj IV 07/20/18 22:17 20 mg STAT ONE Administration Hydralazine HCl Confirm 07/20/18 22:26 Apresoline 20 Mg/Ml Inj Administered 07/20/18 22:27 Dose 20 mg .ROUTE .STK-MED ONE Nitroglycerin 1 gm 07/20/18 22:54 07/20/18 23:00 Nitro-Bid 2% Ud Packets TOP 07/20/18 22:55 1 gm STAT ONE Administration Nitroglycerin Confirm 07/20/18 22:58 Nitro-Bid 2% Ud Packets Administered 07/20/18 22:59 Dose 1 gm .ROUTE .STK-MED ONE Lab/Rad Data: Laboratory Result Diagrams 07/20/18 22:35 07/20/18 22:35 Laboratory Results 07/20/18 07/20/18 07/20/18 Range/Units 23:43 22:35 22:35 WBC (4.0-10.5) K/mm3 RBC (4.1-5.6) M/mm3 Hgb (12.5-18.0) gm/dl Hct (42-50) % MCV (78-100) fl MCH (26-32) pg MCHC (32-36) g/dl RDW (11.5-14.0) % Plt Count (150-450) K/mm3 MPV (6-9.5) fl Gran % (36.0-66.0) % Eos # (Auto) (0-0.5) Absolute Lymphs (auto) (1.0-4.6) Absolute Monos (auto) (0.0-1.3) Lymphocytes % (24.0-44.0) % Monocytes % (0.0-12.0) % Eosinophils % (0.00-5.0) % Basophils % (0.0-0.4) % Absolute Granulocytes (1.4-6.9) Basophils # (0-0.4) Sodium 142 (137-145) mmol/L Potassium 4.0 (3.5-5.1) mmol/L Chloride 102 (98-107) mmol/L Carbon Dioxide 28 (22-30) mmol/L Anion Gap 15.9 H (5-15) MEQ/L BUN 11 (9-20) mg/dL Creatinine 0.86 (0.66-1.25) mg/dL Estimated GFR > 60.0 ML/MIN Glucose 103 (74-106) mg/dL Calcium 9.4 (8.4-10.2) mg/dL Troponin I < 0.012 (0.000-0.034) ng/mL Urine Opiates Level NEGATIVE (NEGATIVE) Ur Methadone NEGATIVE (NEGATIVE) Urine Barbiturates NEGATIVE (NEGATIVE) Ur Phencyclidine (PCP) NEGATIVE (NEGATIVE) Urine Amphetamine NEGATIVE (NEGATIVE) U Benzodiazepine Level NEGATIVE (NEGATIVE) Urine Cocaine NEGATIVE (NEGATIVE) Urine Marijuana (THC) NEGATIVE (NEGATIVE) 07/20/18 Range/Units 22:35 WBC 10.0 (4.0-10.5) K/mm3 RBC 5.11 (4.1-5.6) M/mm3 Hgb 15.5 (12.5-18.0) gm/dl Hct 46.1 (42-50) % MCV 90.2 (78-100) fl MCH 30.3 (26-32) pg MCHC 33.6 (32-36) g/dl RDW 14.3 H (11.5-14.0) % Plt Count 578 H (150-450) K/mm3 MPV 9.1 (6-9.5) fl Gran % 51.1 (36.0-66.0) % Eos # (Auto) 0.32 (0-0.5) Absolute Lymphs (auto) 3.66 (1.0-4.6) Absolute Monos (auto) 0.82 (0.0-1.3) Lymphocytes % 36.7 (24.0-44.0) % Monocytes % 8.2 (0.0-12.0) % Eosinophils % 3.2 (0.00-5.0) % Basophils % 0.8 (0.0-0.4) % Absolute Granulocytes 5.08 (1.4-6.9) Basophils # 0.08 (0-0.4) Sodium (137-145) mmol/L Potassium (3.5-5.1) mmol/L Chloride (98-107) mmol/L Carbon Dioxide (22-30) mmol/L Anion Gap (5-15) MEQ/L BUN (9-20) mg/dL Creatinine (0.66-1.25) mg/dL Estimated GFR ML/MIN Glucose (74-106) mg/dL Calcium (8.4-10.2) mg/dL Troponin I (0.000-0.034) ng/mL Urine Opiates Level (NEGATIVE) Ur Methadone (NEGATIVE) Urine Barbiturates (NEGATIVE) Ur Phencyclidine (PCP) (NEGATIVE) Urine Amphetamine (NEGATIVE) U Benzodiazepine Level (NEGATIVE) Urine Cocaine (NEGATIVE) Urine Marijuana (THC) (NEGATIVE) - Progress Progress: improved Progress Note: 07/21/18 01:16 ADMINISTERED IV HYDRALAZINE 20MG IV, ORAL CATAPRES 0.1MG ORALLY, BP 196/120 IMPROVED TO 118/74. ALL LAB TEST REVIEWED AND ARE NORMAL 07/21/18 02:35 Counseled pt/family regarding: lab results, diagnosis, need for follow-up - Departure Departure Disposition: Long-Term/Long-Term Clinical Impression: HYPERTENSION, ATYPICAL CHEST PAIN Condition: Stable Critical Care Time: No Referrals: DOCTOR,NO FAMILY [Primary Care Provider] - Additional Instructions: CONTINUE ALL CURRENT MEDICATIONS DIRECTED. FOLLOWUP WITH YOUR CARDIOLOGY APPOINTMENT SCHEDULED.
[2018-07-20] MEDS ORDERED: NITRO-BID 2% UD PACKETS ONE (22:58)
[2018-07-20] MEDS ORDERED: BABY ASPIRIN 81 MG CHEW ONE (22:58)
[2018-07-20 23:59] VITALS: PULSE 80
[2018-07-21 00:02] LABS: Amphetamine,Urine NEGATIVE (NEGATIVE); Barbiturate,Urine NEGATIVE (NEGATIVE); Benzodiazepine,Urine NEGATIVE (NEGATIVE); Cocaine,Urine NEGATIVE (NEGATIVE); Methadone,Urine NEGATIVE (NEGATIVE); Opiate,Urine NEGATIVE (NEGATIVE); PCP,Urine NEGATIVE (NEGATIVE); THC,Urine NEGATIVE (NEGATIVE)
[2018-07-21 01:15] VITALS: O2SAT 99
[2018-07-21 02:57] VITALS: BP 110/63
== END 2018-07-21 03:00 | disposition home or self-care (01) ==
LOC: ED 21:58
DX: I10 Essential (primary) hypertension (principal); R07.89 Other chest pain; F15.10 Other stimulant abuse, uncomplicated; Z79.899 Other long term (current) drug therapy
CPT/HCPCS: 36415; 80048; 80307; 84484; 85025; 93005; 93041; 96360; 96361; 96374; 99284; J0360; A9270-GY

== ENCOUNTER 2018-08-26 23:17 | Emergency (ER) | payer MEDICAID, OTHER ==
[2018-08-26 23:27] VITALS: BP 172/106; PULSE 95; O2SAT 99
[2018-08-26] MEDS ORDERED: Catapres 0.1 MG PO ONE (23:41)
[2018-08-26] MEDS ORDERED: Catapres 0.1 MG ONE (23:53)
--- NOTE | 2018-08-26 23:58 | ERPHSYRPT ---
- History of Present Illness Time Seen by Provider: 08/26/18 23:30 Source: patient Exam Limitations: clinical condition Patient Subjective Stated Complaint: blood pressure elevated, numbness in hands and mouth Triage Nursing Assessment: pt brought in by custodial staff, able to ambulate by self , patient smile equal pupils perrla2, strength equal and within normal limits bialteral upper extremities, cap refill immediate, pulses equal bialteral radius Physician History: PATIENT WITH A HISTORY OF METHAMPHETAMINE ABUSE PRESENTLY INCARCERATED IN LOCAL LONG-TERM, COMPLAINS OF FACIAL NUMBNESS AND LEFT HAND NUMBNESS OVER PAST FEW HOURS. THIS IS HIS 10 EMERGENCY ROOM VISIT SINCE 05/31/2018, MULTIPLE VISITS FOR CHEST PAIN AND HYPERTENSION. DENIES HEADACHE, BLURRED VISION, SLURRED SPEECH, FOCAL NUMBNESS, TINGLING OR WEAKNESS IN EXTREMIES. Timing/Duration: today Severity: mild Character of Deficits: altered sensation Deficits: no difficulties Baseline/Normal Cognition: alert oriented x 3 Current Cognition: poor alertness Associated Symptoms: denies symptoms Allergies/Adverse Reactions: Penicillins Allergy (Verified 07/20/18 22:07) Home Medications: Metoprolol Tartrate 25 mg [Lopressor 25MG Tab] 50 mg PO BID 06/06/18 [ History] Lisinopril 20 mg [Zestril 20 MG] 10 mg PO HS 06/16/18 [History] Ibuprofen 800 mg PO BID 07/16/18 [History] Hx Tetanus, Diphtheria Vaccination/Date Given: No Hx Influenza Vaccination/Date Given: No Hx Pneumococcal Vaccination/Date Given: No Immunizations Up to Date: No - Review of Systems Constitutional: No Fever, No Chills Eyes: No Symptoms Ears, Nose, & Throat: No Symptoms Respiratory: No Symptoms, No Cough, No Dyspnea Cardiac: No Symptoms, No Chest Pain, No Edema, No Syncope Abdominal/Gastrointestinal: No Symptoms, No Abdominal Pain, No Nausea, No Vomiting, No Diarrhea Genitourinary Symptoms: No Symptoms, No Dysuria Musculoskeletal: No Symptoms, No Back Pain, No Neck Pain Skin: No Symptoms, No Rash Neurological: Parasthesia, No Dizziness, No Focal Weakness, No Sensory Changes Psychological: No Symptoms Endocrine: No Symptoms All Other Systems: Reviewed and Negative - Past Medical History Pertinent Past Medical History: Yes Neurological History: No Pertinent History ENT History: No Pertinent History Cardiac History: Hypertension Respiratory History: No Pertinent History Endocrine Medical History: No Pertinent History Musculoskeletal History: No Pertinent History GI Medical History: No Pertinent History History: No Pertinent History Psycho-Social History: No Pertinent History Male Reproductive Disorders: No Pertinent History - Past Surgical History Past Surgical History: Yes Neuro Surgical History: No Pertinent History Cardiac: No Pertinent History Respiratory: No Pertinent History Gastrointestinal: No Pertinent History Genitourinary: No Pertinent History Musculoskeletal: No Pertinent History Male Surgical History: No Pertinent History Other Surgical History: SPLEEN REMOVED-several years ago - Social History Smoking Status: Former smoker How long have you smoked: YRS Exposure to second hand smoke: No Drug Use: none Patient Lives Alone: No - Nursing Vital Signs Nursing Vital Signs: Initial Vital Signs Temperature 98.6 F 08/26/18 23:18 Pulse Rate 95 H 08/26/18 23:18 Respiratory Rate 20 08/26/18 23:18 Blood Pressure 172/106 08/26/18 23:18 O2 Sat by Pulse Oximetry 99 08/26/18 23:18 Pain Scale Pain Intensity 0 - Physical Exam General Appearance: no apparent distress, alert Eye Exam: bilateral eye: PERRL, EOMI Ears, Nose, Throat Exam: normal ENT inspection, moist mucous membranes Neck Exam: normal inspection, non-tender, supple Respiratory: normal breath sounds, lungs clear, airway intact, No respiratory distress Cardiovascular: regular rate/rhythm, No edema Gastrointestinal: soft, normal bowel sounds, No tenderness, No distention Back Exam: normal inspection Extremity Exam: normal inspection, normal range of motion, No pedal edema Peripheral Pulses: carotid (R): 2+, carotid (L): 2+, femoral (R): 2+, femoral (L ): 2+, dorsalis-pedis (R): 2+, dorsalis-pedis (L): 2+ Mental Status: alert, oriented x 3 knowledge manager Exam: normal hearing, normal speech, PERRL, tongue midline Coordination/Gait: normal finger to nose, normal gait Motor/Sensory: no motor deficit, no sensory deficit, no pronator drift DTR: bicep (R): 2+, bicep (L): 2+, tricep (R): 2+, tricep (L): 2+ Skin Exam: normal color, warm, dry, No rash SpO2 Interpretation: normal SpO2: 99 - Course EKG Interpreted by Me: RATE, Sinus Rhythm, Sinus Yaya - CT Exams Head CT Interpretation: Discussed w/radiologist (OLD RIGHT PARIETAL INFARCT , 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) Ordered Tests: Active Orders 24 hr Category Date Time Status Distribution Operations Manager STAT Care 08/26/18 23:40 Active EKG-ER Only STAT Care 08/26/18 23:40 Active CHEST 1 VIEW (PORTABLE) Stat Exams 08/27/18 00:01 Taken HEAD WITHOUT CONTRAST [CT] Stat Exams 08/26/18 23:51 Taken CBC W DIFF Stat Lab 08/26/18 23:56 Completed CMP Stat Lab 08/26/18 23:56 Completed MAGNESIUM Stat Lab 08/26/18 23:56 Completed TROPONIN Q3H Lab 08/26/18 23:56 Completed TROPONIN Q3H Lab 08/27/18 02:45 Ordered TROPONIN Q3H Lab 08/27/18 05:45 Ordered TROPONIN Q3H Lab 08/27/18 08:45 Ordered TROPONIN Q3H Lab 08/27/18 11:45 Ordered Medication Summary Discontinued Medications Generic Name Dose Route Start Last Admin Trade Name Cara PRN Reason Stop Dose Admin Clonidine 0.2 mg 08/26/18 23:41 08/26/18 23:56 Catapres 0.1 Mg PO 08/26/18 23:42 0.2 mg STAT ONE Administration Clonidine Confirm 08/26/18 23:53 Catapres 0.1 Mg Administered 08/26/18 23:54 Dose 0.2 mg .ROUTE .STK-MED ONE Lab/Rad Data: Laboratory Result Diagrams 08/26/18 23:56 08/26/18 23:56 Laboratory Results 08/26/18 08/26/18 08/26/18 Range/Units 23:56 23:56 23:56 WBC 11.5 H (4.0-10.5) K/mm3 RBC 4.76 (4.1-5.6) M/mm3 Hgb 14.6 (12.5-18.0) gm/dl Hct 43.1 (42-50) % MCV 90.5 (78-100) fl MCH 30.7 (26-32) pg MCHC 33.9 (32-36) g/dl RDW 13.8 (11.5-14.0) % Plt Count 470 H (150-450) K/mm3 MPV 9.1 (6-9.5) fl Gran % 44.6 (36.0-66.0) % Eos # (Auto) 0.11 (0-0.5) Absolute Lymphs (auto) 5.13 H (1.0-4.6) Absolute Monos (auto) 1.06 (0.0-1.3) Lymphocytes % 44.6 H (24.0-44.0) % Monocytes % 9.2 (0.0-12.0) % Eosinophils % 1.0 (0.00-5.0) % Basophils % 0.6 (0.0-0.4) % Absolute Granulocytes 5.12 (1.4-6.9) Basophils # 0.07 (0-0.4) Sodium 142 (137-145) mmol/L Potassium 4.1 (3.5-5.1) mmol/L Chloride 103 (98-107) mmol/L Carbon Dioxide 28 (22-30) mmol/L Anion Gap 14.9 (5-15) MEQ/L BUN 18 (9-20) mg/dL Creatinine 0.84 (0.66-1.25) mg/dL Estimated GFR > 60.0 ML/MIN Glucose 102 (74-106) mg/dL Calcium 9.4 (8.4-10.2) mg/dL Magnesium 2.0 (1.6-2.3) mg/dL Total Bilirubin 0.60 (0.2-1.3) mg/dL AST 23 (17-59) U/L ALT 21 (0-50) U/L Alkaline Phosphatase 62 (38-126) U/L Troponin I < 0.012 (0.000-0.034) ng/mL Serum Total Protein 8.0 (6.3-8.2) g/dL Albumin 4.4 (3.5-5.0) g/dL - Progress Progress Note: 08/26/18 23:59 ADMINISTERED CATAPRES 0.2MG, BP IMPROVED TO BP 137/73 08/27/18 01:16 Counseled pt/family regarding: lab results, diagnosis, need for follow-up, rad results - Departure Departure Disposition: Half-Way/Skilled Nursing Clinical Impression: FACIAL PARESTHESIA, LEFT HAND PARESTHESIA Condition: Stable Critical Care Time: No Referrals: DOCTOR,NO FAMILY [Primary Care Provider] - Additional Instructions: CONTINUE ALL CURRENT MEDICATIONS. FOLLOWUP WITH YOUR PRIMARY CARE PROVIDER.
[2018-08-26 23:59] LABS: BASOPHIL % 0.6 % (0.0-0.4); Basophil (Absolute #) 0.07 (0-0.4); Eosinophil (Absolute #) 0.11 (0-0.5); Granulocyte Absolute (ANC) 5.12 (1.4-6.9); Granulocytes % 44.6 % (36.0-66.0); Hematocrit 43.1 % (42-50); Hemoglobin 14.6 gm/dl (12.5-18.0); Lymphocyte (Absolute #) 5.13 (1.0-4.6); Lymphocytes % 44.6 % (24.0-44.0); Mean Cell Volume 90.5 fl (78-100); Mean Corpuscular Hemoglobin 30.7 pg (26-32); Mean Corpuscular Hgb Concent. 33.9 g/dl (32-36); Mean Platelet Volume 9.1 fl (6-9.5); Monocyte (Absolute #) 1.06 (0.0-1.3); Monocytes % 9.2 % (0.0-12.0); Platelet Count 470 K/mm3 (150-450); Red Blood Count 4.76 M/mm3 (4.1-5.6); Red Cell Distribution Width 13.8 % (11.5-14.0); White Blood Count 11.5 K/mm3 (4.0-10.5)
[2018-08-27 00:11] LABS: ALBUMIN 4.4 g/dL (3.5-5.0); ALKALINE PHOSPHATASE 62 U/L (38-126); ANION GAP 14.9 MEQ/L (5-15); BLOOD UREA NITROGEN 18 mg/dL (9-20); CHLORIDE 103 mmol/L (98-107); Calcium 9.4 mg/dL (8.4-10.2); Carbon Dioxide 28 mmol/L (22-30); Creatinine 1 0.84 mg/dL (0.66-1.25); Glucose 102 mg/dL (74-106); Potassium 4.1 mmol/L (3.5-5.1); SGOT/AST 23 U/L (17-59); SGPT/ALT 21 U/L (0-50); SODIUM 142 mmol/L (137-145)
--- NOTE | 2018-08-27 08:41 | XRAY ---
Indication: Bilateral hand and lip numbness. Headache. High blood pressure. Multiple contiguous axial images obtained through the head without contrast. Comparison: June 03, 2018. Stable age-appropriate global atrophy, moderate periventricular degenerative microvascular ischemia, bilateral multifocal remote lacunar infarcts, and remote right parietal infarct near the vertex. No acute intracranial hemorrhage, abnormal extra-axial fluid collection, or mass effect. Fourth ventricle is midline without hydrocephalus. Bony calvarium intact. Stable midline occipital subcutaneous sebaceous cyst. Visualized paranasal sinuses and mastoid air cells are clear. Impression: Stable nonacute senile brain with multifocal bilateral remote infarcts. Comment: Preliminary interpretation was made by [facility]. No discrepancy. CTDI 67.99
--- NOTE | 2018-08-27 08:49 | XRAY ---
Indication: Dyspnea. Comparison: July 15, 2018. Portable chest again hyperinflated with a few pulmonary calcified granulomas and minimal left base atelectasis/scarring. No focal infiltrate, consolidation, or large effusion. Heart and mediastinal structures within normal limits. Bony thorax intact again with mild degenerative changes and old left rib fractures. Impression: Nonacute hyperinflated chest with chronic features.
== END 2018-08-27 01:55 | disposition home or self-care (01) ==
LOC: ED 23:17
DX: R20.2 Paresthesia of skin (principal)
CPT/HCPCS: 36415; 70450; 71045; 80053; 83735; 84484; 85025; 93005; 93041; 99284; A9270-GY

== ENCOUNTER 2022-06-14 10:49 | Inpatient (IN) | payer MEDICARE, OTHER ==
--- NOTE | 2022-06-14 11:23 | ERPHSYRPT ---
- History of Present Illness Source: patient Exam Limitations: other (Poor historian) Patient Subjective Stated Complaint: pt here for pain to left testicle for a couple days now, with swelling. no fever Triage Nursing Assessment: pt alert, poor historian, resp easy at rest, sob with excertion , skin w/d/p. incont of urine, Physician History: 66 yo wm w L testicular pain x 2 days. Pain is 8/10. Pt denies trauma. He has dysuria wo hematuria or increased frequency. Fever is also denied. Pt also has low sats, but wave form on pulse ox is low. He has home O2 which he wears intermittently. Timing/Duration: other (2 days) Activites at Onset: rest Onset Location: left testicle Severity of Pain-Max: severe Severity of Pain-Current: severe Modifying Factors: Improves With: nothing Associated Symptoms: denies symptoms Prior abdominal problems: none Sexual intercourse history: non-contributory Allergies/Adverse Reactions: Penicillins Allergy (Verified 06/14/22 10:57) Home Medications: Metoprolol Tartrate 25 mg [Lopressor 25MG Tab] 50 mg PO BID 06/06/18 [History] Lisinopril 20 mg [Zestril 20 MG] 10 mg PO HS 06/16/18 [History] Ibuprofen 800 mg PO BID 07/16/18 [History] Atorvastatin Calcium [Lipitor 20MG Tablet] 20 mg PO DAILY 06/14/22 [History] Hx Tetanus, Diphtheria Vaccination/Date Given: No Hx Influenza Vaccination/Date Given: No Hx Pneumococcal Vaccination/Date Given: No Immunizations Up to Date: Yes Travel Risk - International Travel Have you traveled outside of the country in past 3 weeks: No - Coronavirus Screening Are you exhibiting any of the following symptoms?: No Close contact with a COVID-19 positive Pt in past 14-21 Days: No - Vaccine Status Have you recieved a Covid-19 vaccination: Yes Composition Floor Layer: Unknown - Vaccination Dates Date of 2cond Vaccination (if applicable): 2020 Dates if Unknown: ? - Past Medical History Pertinent Past Medical History: Yes Neurological History: No Pertinent History ENT History: No Pertinent History Cardiac History: Hypertension Respiratory History: No Pertinent History Endocrine Medical History: No Pertinent History Musculoskeletal History: No Pertinent History GI Medical History: No Pertinent History History: No Pertinent History Psycho-Social History: No Pertinent History Male Reproductive Disorders: No Pertinent History - Past Surgical History Past Surgical History: Yes Neuro Surgical History: No Pertinent History Cardiac: No Pertinent History Respiratory: No Pertinent History Gastrointestinal: No Pertinent History Genitourinary: No Pertinent History Musculoskeletal: No Pertinent History Male Surgical History: No Pertinent History Other Surgical History: SPLEEN REMOVED-several years ago - Social History Smoking Status: Former smoker How long have you smoked: YRS Exposure to second hand smoke: No Drug Use: none Patient Lives Alone: Yes - Review of Systems Constitutional: No Symptoms Eyes: No Symptoms Ears, Nose, & Throat: No Symptoms Abdominal/Gastrointestinal: No Symptoms Genitourinary Symptoms: Testicle Pain Musculoskeletal: No Symptoms Skin: No Symptoms Neurological: No Symptoms Psychological: No Symptoms Endocrine: No Symptoms Hematologic/Lymphatic: No Symptoms Immunological/Allergic: No Symptoms - Nursing Vital Signs Nursing Vital Signs: Initial Vital Signs Temperature 97.9 F 06/14/22 11:03 Pulse Rate 63 06/14/22 11:03 Respiratory Rate 18 06/14/22 11:03 Blood Pressure 159/115 06/14/22 11:03 O2 Sat by Pulse Oximetry 89 L 06/14/22 11:03 Pain Scale Pain Intensity 0 Hypertensive - Physical Exam General Appearance: mild distress Eye Exam: PERRL/EOMI, eyes nml inspection Ears, Nose, Throat Exam: normal ENT inspection, TMs normal, moist mucous membranes Neck Exam: normal inspection, non-tender, supple, full range of motion, No meningismus, No mass, No Brudzinski, No Kernig's Respiratory Exam: airway intact, crackles/rales (Faint rales at bases B) Cardiovascular Exam: regular rate/rhythm, capillary refill <2 sec, other (Frequent ectopy), No murmur Gastrointestinal/Abdomen Exam: soft, normal bowel sounds Male Genital Exam: testicular tenderness (L) (L testicle edematous and TTP), uncircumcised Back Exam: normal inspection, normal range of motion Extremity Exam: normal inspection, normal range of motion Neurologic Exam: alert, oriented x 3, cooperative, flap maker II-XII 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, normal mood/affect, nml cerebellar function, nml station & gait, sensation nml, No motor deficits, No sensory deficit Skin Exam: normal color, warm, dry Lymphatic Exam: No adenopathy SpO2 Interpretation: borderline oxygenation (Poor wave form on pulse ox) SpO2: 89 O2 Delivery: Room Air - Course Nursing assessment & vital signs reviewed: Yes EKG Interpreted by Me: RATE (NSR/Rate 97/Frequent PVC's/Prolonged QTc/Artifact/Non-specific Twave abnormality) - Radiology Exams Chest X-ray Interpretation: Interpreted by me (Rotated/RUL-RML infiltrate) - CT Exams Chest CT Interpretation: Discussed w/radiologist (Torsed inferior lingular segment/COPD), Tele-radiologist Report - Radiology Ultrasound Exam Scrotal Ultrasound: tele radiology report (CTA of chest COPD/Torsion of inferior lingula), Other (Per tech-B hydroceles/good blood flow B/L epididymitis w possible R epididymitis) Ordered Tests: Active Orders 24 hr Category Date Time Status EKG-ER Only STAT Care 06/14/22 11:15 Active IV Insertion STAT Care 06/14/22 11:15 Active CHEST 1 VIEW (PORTABLE) Stat Exams 06/14/22 11:34 Completed CHEST WITH CONTRAST [CT] Stat Exams 06/14/22 15:09 Completed CHEST WITHOUT CONTRAST [CT] Stat Exams 06/14/22 13:05 Completed TESTICLE [US] Stat Exams 06/14/22 11:14 Completed ABG [ARTERIAL BLOOD GASES] Stat Lab 06/14/22 11:25 Completed BLOOD CULTURE Stat Lab 06/14/22 13:55 Received CBC W DIFF Stat Lab 06/14/22 11:25 Completed CMP Stat Lab 06/14/22 11:25 Completed CULTURE,URINE Stat Lab 06/14/22 12:27 Received Lactic Acid Stat Lab 06/14/22 12:15 Completed NT PRO BNPII Stat Lab 06/14/22 Completed TROPONIN Q4H Lab 06/14/22 11:25 Completed TROPONIN Q4H Lab 06/14/22 14:00 Completed TROPONIN Q4H Lab 06/14/22 19:30 Ordered UA W/RFX UR CULTURE Stat Lab 06/14/22 12:27 Completed Urine Triage Profile Stat Lab 06/14/22 12:27 Completed Transfer Order Routine Transfer 06/14/22 Ordered Medication Summary Discontinued Medications Generic Name Dose Route Start Last Admin Trade Name Freq PRN Reason Stop Dose Admin Ceftriaxone Sodium/Dextrose 1 g in 50 mls @ 100 mls/hr 06/14/22 13:47 06/14/22 15:13 Rocephin 1 Gm-D5w 50 Ml Bag IV 06/14/22 14:16 Infused STAT STA Infusion Ceftriaxone Sodium/Dextrose Confirm 06/14/22 14:21 Rocephin 1 Gm-D5w 50 Ml Bag Administered 06/14/22 14:22 Dose 1 g in 50 mls @ ud IV .STK-MED ONE Ketorolac Tromethamine 15 mg 06/14/22 11:56 06/14/22 11:59 Ketorolac Tromethamine 30 Mg/Ml Inj IV 06/14/22 11:57 15 mg STAT ONE Administration Ketorolac Tromethamine Confirm 06/14/22 11:58 Ketorolac Tromethamine 30 Mg/Ml Inj Administered 06/14/22 11:59 Dose 30 mg .ROUTE .STK-MED ONE Lab/Rad Data: Laboratory Result Diagrams 06/14/22 11:25 06/14/22 11:25 Laboratory Results 06/14/22 06/14/22 06/14/22 Range/Units Unknown 14:00 12:27 WBC (4.0-10.5) x10^3/uL RBC (4.1-5.6) x10^6/uL Hgb (12.5-18.0) g/dL Hct (42-50) % MCV (78-100) fL MCH (26-32) pg MCHC (32-36) g/dL RDW (11.5-14.0) % Plt Count (150-450) x10^3/uL MPV (7.5-11.0) fL Gran % (36.0-66.0) % Immature Gran % (Auto) (0.00-0.4) % Nucleat RBC Rel Count (0.00-0.1) % Eos # (Auto) (0-0.5) x10^3/uL Immature Gran # (Auto) (0.00-0.03) x10^3u/L Absolute Lymphs (auto) (1.0-4.6) x10^3/uL Absolute Monos (auto) (0.0-1.3) x10^3/uL Absolute Nucleated RBC (0.00-0.01) x10^3u/L Lymphocytes % (24.0-44.0) % Monocytes % (0.0-12.0) % Eosinophils % (0.00-5.0) % Basophils % (0.0-0.4) % Absolute Granulocytes (1.4-6.9) x10^3/uL Basophils # (0-0.4) x10^3/uL Puncture Site pCO2 (35-45) mmHg pO2 (75-100) mmHg Base Excess (-2.0-2.0) O2 Saturation (94-100) g/dF ABG pH (7.35-7.45) ABG HCO3 (22-28) ABG O2 Sat (Measured) (95-100) % Garrison Test A-a Gradient a/A Ratio Hemoglobin Carboxyhemoglobin (0.0-6.9) % THgb Methemoglobin (1.4-1.5) % Potassium (3.5-5.1) Temperature C POC O2 Flow Rate % Sodium (137-145) mmol/L Chloride (98-107) mmol/L Carbon Dioxide (22-30) mmol/L Anion Gap (5-15) MEQ/L BUN (9-20) mg/dL Creatinine (0.66-1.25) mg/dL Estimated GFR ML/MIN Glucose (74-106) mg/dL Lactic Acid (0.4-2.0) Calcium (8.4-10.2) mg/dL Total Bilirubin (0.2-1.3) mg/dL AST (17-59) U/L ALT (0-50) U/L Alkaline Phosphatase (38-126) U/L Troponin I 0.021 (0.000-0.034) ng/mL NT-Pro-B Natriuret Pep 576 (<300) pg/mL Serum Total Protein (6.3-8.2) g/dL Albumin (3.5-5.0) g/dL Urine Color (Yellow) Urine Appearance (Clear) Urine pH (4.6-8.0) Ur Specific [place] (1.005-1.030) Urine Protein (Negative) Urine Glucose (UA) (Negative) mg/dL Urine Ketones (Negative) Urine Blood (Negative) Urine Nitrite (Negative) Urine Bilirubin (Negative) Urine Urobilinogen (0.2) mg/dL Ur Leukocyte Esterase (Negative) U Hyaline Cast (Auto) (0-2) /LPF Urine Microscopic RBC (0-5) /HPF Urine Microscopic WBC (0-5) /HPF Ur Epithelial Cells (None Seen) /HPF Urine Bacteria (None Seen) /HPF Urine Culture Reflexed (NO) Urine Opiates Level NEGATIVE (NEGATIVE) Ur Methadone NEGATIVE (NEGATIVE) Urine Barbiturates NEGATIVE (NEGATIVE) Ur Phencyclidine (PCP) NEGATIVE (NEGATIVE) Urine Amphetamine POSITIVE (NEGATIVE) U Benzodiazepine Level NEGATIVE (NEGATIVE) Urine Cocaine NEGATIVE (NEGATIVE) Urine Marijuana (THC) NEGATIVE (NEGATIVE) Slides for Path Review 06/14/22 06/14/22 06/14/22 Range/Units 12:27 12:15 11:25 WBC (4.0-10.5) x10^3/uL RBC (4.1-5.6) x10^6/uL Hgb (12.5-18.0) g/dL Hct (42-50) % MCV (78-100) fL MCH (26-32) pg MCHC (32-36) g/dL RDW (11.5-14.0) % Plt Count (150-450) x10^3/uL MPV (7.5-11.0) fL Gran % (36.0-66.0) % Immature Gran % (Auto) (0.00-0.4) % Nucleat RBC Rel Count (0.00-0.1) % Eos # (Auto) (0-0.5) x10^3/uL Immature Gran # (Auto) (0.00-0.03) x10^3u/L Absolute Lymphs (auto) (1.0-4.6) x10^3/uL Absolute Monos (auto) (0.0-1.3) x10^3/uL Absolute Nucleated RBC (0.00-0.01) x10^3u/L Lymphocytes % (24.0-44.0) % Monocytes % (0.0-12.0) % Eosinophils % (0.00-5.0) % Basophils % (0.0-0.4) % Absolute Granulocytes (1.4-6.9) x10^3/uL Basophils # (0-0.4) x10^3/uL Puncture Site RIGHT RADIAL pCO2 32 L (35-45) mmHg pO2 104 H (75-100) mmHg Base Excess 1.9 (-2.0-2.0) O2 Saturation 96.1 (94-100) g/dF ABG pH 7.49 H (7.35-7.45) ABG HCO3 24.4 (22-28) ABG O2 Sat (Measured) 99.6 (95-100) % Garrison Test YES A-a Gradient 113 a/A Ratio 0.48 Hemoglobin 16.6 Carboxyhemoglobin 2.7 (0.0-6.9) % THgb Methemoglobin 0.7 L (1.4-1.5) % Potassium 3.8 (3.5-5.1) Temperature 37.0 C POC O2 Flow Rate 36 % Sodium (137-145) mmol/L Chloride (98-107) mmol/L Carbon Dioxide (22-30) mmol/L Anion Gap (5-15) MEQ/L BUN (9-20) mg/dL Creatinine (0.66-1.25) mg/dL Estimated GFR ML/MIN Glucose (74-106) mg/dL Lactic Acid 1.5 (0.4-2.0) Calcium (8.4-10.2) mg/dL Total Bilirubin (0.2-1.3) mg/dL AST (17-59) U/L ALT (0-50) U/L Alkaline Phosphatase (38-126) U/L Troponin I (0.000-0.034) ng/mL NT-Pro-B Natriuret Pep (<300) pg/mL Serum Total Protein (6.3-8.2) g/dL Albumin (3.5-5.0) g/dL Urine Color Yellow (Yellow) Urine Appearance Cloudy A (Clear) Urine pH 5.5 (4.6-8.0) Ur Specific [place] 1.025 (1.005-1.030) Urine Protein 30 (Negative) Urine Glucose (UA) 100 A (Negative) mg/dL Urine Ketones Negative (Negative) Urine Blood Small A (Negative) Urine Nitrite Positive A (Negative) Urine Bilirubin Negative (Negative) Urine Urobilinogen 0.2 (0.2) mg/dL Ur Leukocyte Esterase Large A (Negative) U Hyaline Cast (Auto) NONE SEEN (0-2) /LPF Urine Microscopic RBC 0-2 (0-5) /HPF Urine Microscopic WBC >100 A (0-5) /HPF Ur Epithelial Cells None Seen (None Seen) /HPF Urine Bacteria Many A (None Seen) /HPF Urine Culture Reflexed YES (NO) Urine Opiates Level (NEGATIVE) Ur Methadone (NEGATIVE) Urine Barbiturates (NEGATIVE) Ur Phencyclidine (PCP) (NEGATIVE) Urine Amphetamine (NEGATIVE) U Benzodiazepine Level (NEGATIVE) Urine Cocaine (NEGATIVE) Urine Marijuana (THC) (NEGATIVE) Slides for Path Review 06/14/22 06/14/22 06/14/22 Range/Units 11:25 11:25 11:25 WBC 21.5 H (4.0-10.5) x10^3/uL RBC 5.25 (4.1-5.6) x10^6/uL Hgb 16.0 (12.5-18.0) g/dL Hct 48.4 (42-50) % MCV 92.2 (78-100) fL MCH 30.5 (26-32) pg MCHC 33.1 (32-36) g/dL RDW 13.3 (11.5-14.0) % Plt Count 459 H (150-450) x10^3/uL MPV 9.4 (7.5-11.0) fL Gran % 69.3 H (36.0-66.0) % Immature Gran % (Auto) 0.4 (0.00-0.4) % Nucleat RBC Rel Count 0.0 (0.00-0.1) % Eos # (Auto) 0.18 (0-0.5) x10^3/uL Immature Gran # (Auto) 0.08 H (0.00-0.03) x10^3u/L Absolute Lymphs (auto) 3.77 (1.0-4.6) x10^3/uL Absolute Monos (auto) 2.44 H (0.0-1.3) x10^3/uL Absolute Nucleated RBC 0.00 (0.00-0.01) x10^3u/L Lymphocytes % 17.6 L (24.0-44.0) % Monocytes % 11.4 (0.0-12.0) % Eosinophils % 0.8 (0.00-5.0) % Basophils % 0.5 (0.0-0.4) % Absolute Granulocytes 14.90 H (1.4-6.9) x10^3/uL Basophils # 0.10 (0-0.4) x10^3/uL Puncture Site pCO2 (35-45) mmHg pO2 (75-100) mmHg Base Excess (-2.0-2.0) O2 Saturation (94-100) g/dF ABG pH (7.35-7.45) ABG HCO3 (22-28) ABG O2 Sat (Measured) (95-100) % Garrison Test A-a Gradient a/A Ratio Hemoglobin Carboxyhemoglobin (0.0-6.9) % THgb Methemoglobin (1.4-1.5) % Potassium 3.8 (3.5-5.1) Temperature C POC O2 Flow Rate % Sodium 139 (137-145) mmol/L Chloride 106 (98-107) mmol/L Carbon Dioxide 23 (22-30) mmol/L Anion Gap 13.8 (5-15) MEQ/L BUN 16 (9-20) mg/dL Creatinine 0.99 (0.66-1.25) mg/dL Estimated GFR > 60.0 ML/MIN Glucose 116 H (74-106) mg/dL Lactic Acid (0.4-2.0) Calcium 8.9 (8.4-10.2) mg/dL Total Bilirubin 0.60 (0.2-1.3) mg/dL AST 22 (17-59) U/L ALT 21 (0-50) U/L Alkaline Phosphatase 75 (38-126) U/L Troponin I 0.017 (0.000-0.034) ng/mL NT-Pro-B Natriuret Pep (<300) pg/mL Serum Total Protein 7.5 (6.3-8.2) g/dL Albumin 4.1 (3.5-5.0) g/dL Urine Color (Yellow) Urine Appearance (Clear) Urine pH (4.6-8.0) Ur Specific [place] (1.005-1.030) Urine Protein (Negative) Urine Glucose (UA) (Negative) mg/dL Urine Ketones (Negative) Urine Blood (Negative) Urine Nitrite (Negative) Urine Bilirubin (Negative) Urine Urobilinogen (0.2) mg/dL Ur Leukocyte Esterase (Negative) U Hyaline Cast (Auto) (0-2) /LPF Urine Microscopic RBC (0-5) /HPF Urine Microscopic WBC (0-5) /HPF Ur Epithelial Cells (None Seen) /HPF Urine Bacteria (None Seen) /HPF Urine Culture Reflexed (NO) Urine Opiates Level (NEGATIVE) Ur Methadone (NEGATIVE) Urine Barbiturates (NEGATIVE) Ur Phencyclidine (PCP) (NEGATIVE) Urine Amphetamine (NEGATIVE) U Benzodiazepine Level (NEGATIVE) Urine Cocaine (NEGATIVE) Urine Marijuana (THC) (NEGATIVE) Slides for Path Review YES - Progress Progress: improved Progress Note: 06/14/22 16:34 Nursing note and vital signs reviewed No food or housing insecurities noted Blood cultures x2/1gm of IV Rocephin Telerad called about Ct of chest and states that pt had torsion of inferior lingular segment of JULIANNA Spoke w Dr. White at [facility], recommended CTA of chest CTA of chest also w torsion of inferior lingular segment of JULIANNA Spoke w Dr. Alanis at [facility](CT surgeon) does not believe that area is torsed but wants Radiologist to look at CT-CTA of chest 06/14/22 16:46 Dr. Alanis reviewed case w radiologist and doubts that pt has lingular torsion. Admit per Dr. Mir 06/14/22 19:16 Counseled pt/family regarding: lab results, diagnosis, rad results - Departure Departure Disposition: Observation Clinical Impression: UTI (urinary tract infection), Epididymitis, Lung abnormality Condition: Stable Critical Care Time: No Referrals: STEWART KENDALL MD [Primary Care Provider] - Follow up/PCP as directed Instructions: Epididymitis (DC)
[2022-06-14 11:31] LABS: BASOPHIL % 0.5 % (0.0-0.4); Eosinophil % 0.8 % (0.00-5.0); Eosinophil (Absolute #) 0.18 x10^3/uL (0-0.5); Hematocrit 48.4 % (42-50); IMMATURE GRAN # 0.08 x10^3u/L (0.00-0.03); IMMATURE GRAN % 0.4 % (0.00-0.4); Lymphocyte (Absolute #) 3.77 x10^3/uL (1.0-4.6); Lymphocytes % 17.6 % (24.0-44.0); Mean Cell Volume 92.2 fL (78-100); Mean Corpuscular Hemoglobin 30.5 pg (26-32); Mean Corpuscular Hgb Concent. 33.1 g/dL (32-36); Mean Platelet Volume 9.4 fL (7.5-11.0); Monocyte (Absolute #) 2.44 x10^3/uL (0.0-1.3); Monocytes % 11.4 % (0.0-12.0); Neutrophil % 69.3 % (36.0-66.0); Platelet Count 459 x10^3/uL (150-450); Red Blood Count 5.25 x10^6/uL (4.1-5.6); Red Cell Distribution Width 13.3 % (11.5-14.0); White Blood Count 21.5 x10^3/uL (4.0-10.5)
[2022-06-14 11:32] LABS: A-aADO2 113; ABG HEMOGLOBIN 16.6; ABG POTASSIUM 3.8 (3.5-5.1); ABG SITE RIGHT RADIAL; ALLEN TEST OK? YES; ARTERIAL BLD GAS O2 SATURATION 99.6 % (95-100); ARTERIAL BLOOD GAS BASE EXCESS 1.9 (-2.0-2.0); ARTERIAL BLOOD GAS FIO2 36 %; ARTERIAL BLOOD GAS PCO2 32 mmHg (35-45); ARTERIAL BLOOD GAS PO2 104 mmHg (75-100); ARTERIAL BLOOD GAS pH 7.49 (7.35-7.45); CARBOXYHEMOGLOBIN 2.7 % THgb (0.0-6.9); HCO3- 24.4 (22-28); HGB O2 SAT 96.1 g/dF (94-100); Methhemoglobin 0.7 % (1.4-1.5); paO2 pAO1 0.48
[2022-06-14 11:44] LABS: ALBUMIN 4.1 g/dL (3.5-5.0); ALKALINE PHOSPHATASE 75 U/L (38-126); ANION GAP 13.8 MEQ/L (5-15); BLOOD UREA NITROGEN 16 mg/dL (9-20); CHLORIDE 106 mmol/L (98-107); Calcium 8.9 mg/dL (8.4-10.2); Carbon Dioxide 23 mmol/L (22-30); Creatinine 1 0.99 mg/dL (0.66-1.25); EST GLOMERULAR FILTRATION RATE > 60.0 ML/MIN; Glucose 116 mg/dL (74-106); Potassium 3.8 mmol/L (3.5-5.1); SGOT/AST 22 U/L (17-59); SGPT/ALT 21 U/L (0-50); SODIUM 139 mmol/L (137-145); Total Protein 7.5 g/dL (6.3-8.2)
[2022-06-14] MEDS ORDERED: TORAdol 30 mg Injection IV ONE (11:56)
[2022-06-14] MEDS ORDERED: TORAdol 30 mg Injection ONE (11:58)
[2022-06-14 12:56] LABS: Appearance Cloudy (Clear); Bacteria Many /HPF (None Seen); Bilirubin Negative (Negative); Blood Small (Negative); Epithelial Cells None Seen /HPF (None Seen); Glucose, Urine 100 mg/dL (Negative); Hyaline Casts NONE SEEN /LPF (0-2); Ketones Negative (Negative); Leukocyte Esterase Large (Negative); Nitrite Positive (Negative); Ph 5.5 (4.6-8.0); Protein,Urine Dip 30 (Negative); RBC 0-2 /HPF (0-5); Specific Gravity 1.025 (1.005-1.030); Urobilinogen 0.2 mg/dL (0.2); WBC >100 /HPF (0-5)
[2022-06-14 13:01] LABS: ADD URINE CULTURE? YES (NO)
[2022-06-14 13:02] LABS: Slide Review 1 YES
[2022-06-14 13:03] LABS: Barbiturate,Urine NEGATIVE (NEGATIVE); Benzodiazepine,Urine NEGATIVE (NEGATIVE); Cocaine,Urine NEGATIVE (NEGATIVE); Methadone,Urine NEGATIVE (NEGATIVE); Opiate,Urine NEGATIVE (NEGATIVE); PCP,Urine NEGATIVE (NEGATIVE); THC,Urine NEGATIVE (NEGATIVE)
[2022-06-14] MEDS ORDERED: ROCEPHIN 1 Gm-D5w 50 ml Bag** 1 G/50 ML IVPB IV STA (13:47)
[2022-06-14 13:59] LABS: Amphetamine,Urine POSITIVE (NEGATIVE)
[2022-06-14] MEDS ORDERED: ROCEPHIN 1 Gm-D5w 50 ml Bag** 1 G/50 ML IVPB IV ONE (14:21)
--- NOTE | 2022-06-14 18:52 | XRAY ---
Indication: Left testicle pain. Two-dimensional testicular sonogram performed. Comparison: None Both testicles are homogeneous in echogenicity. Right testicle measures 4.1 x 2.4 x 2.4 cm and the left measures 3.4 x 2.6 x 3.2 cm. Right testicle demonstrates normal color Doppler flow and the left testicle demonstrates increased color Doppler flow. Also prominent left epididymis measuring 2.3 x 1.1 cm with also hyperemic color Doppler flow. Right epididymis sonographically unremarkable. Small left and tiny right hydroceles. No suspicious extratesticular mass. Impression: Sonographic features favoring left orchiepididymitis with small reactive hydrocele. Negative right testicle sonogram. Comment: Preliminary report was given.
--- NOTE | 2022-06-14 19:04 | XRAY ---
Indication: Short of breath. Low oxygenation. COPD. Multiple contiguous axial images obtained through the chest without contrast. Comparison: July 15, 2018 Lungs again demonstrates moderate pulmonary emphysema greatest in both upper lobes and right mid lung peripheral calcified granuloma. Again scattered fibrosis/scarring with new focus in the lingula. No infiltrate, consolidation, effusion, or pneumothorax. Heart not enlarged with scattered coronary calcifications. Aorta mildly arteriosclerotic without aneurysm. Stable chunky right hilar calcified node. No pathologic mediastinal lymphadenopathy. Bony thorax intact again with moderate degenerative changes throughout the spine. 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 Impression: 1. Again pulmonary emphysema, scattered fibrosis/scarring, chronic bony findings, arteriosclerotic disease, and old granulomatous disease. 2. Remaining CT chest without contrast exam is negative. Comment: Preliminary interpretation made by [facility] who reports torsion inferior lingula which I do not appreciate. Lung torsion is very rare with less than 0.5% incidence and typically occurs in lobectomy/pneumonectomy patient's. Patient has no thoracic surgical history.
--- NOTE | 2022-06-14 19:09 | XRAY ---
Indication: Short of breath. Low oxygenation. Aortic dissection versus pulmonary embolus. Multiple contiguous axial images obtained through the chest using 100 cc Isovue 370 contrast and PE protocol. Comparison: Noncontrast exam performed earlier in the day. Good opacification of the pulmonary arteries to include the lobar and segmental branches. No pulmonary embolus. Heart not enlarged with scattered coronary calcifications. Aorta mildly atherosclerotic without aneurysm/dissection. Stable chunky right hilar calcified node. No pathologic mediastinal/hilar lymphadenopathy. Lungs again demonstrates moderate pulmonary emphysema greatest in both upper lobes and right mid lung peripheral calcified granuloma. Again scattered fibrosis/scarring including lingula. No infiltrate, consolidation, effusion, or pneumothorax. Impression: 1. Negative pulmonary embolus or aortic dissection. 2. Again chronic findings including pulmonary emphysema, scattered fibrosis/scarring, arteriosclerotic disease, and old granulomatous disease. Comment: Preliminary interpretation made by [facility] who reports torsion inferior lingula which I do not appreciate. Lung torsion is very rare with less than 0.5% incidence and typically occurs in lobectomy/pneumonectomy patient's. Patient has no thoracic surgical history.
--- NOTE | 2022-06-14 19:10 | XRAY ---
Indication: Low oxygenation. COPD. Comparison: August 27, 2018 Portable apical lordotic chest less inflated with new right midlung subsegmental atelectasis. Remaining heart and lungs unremarkable again with incidental right lung calcified granulomas. Bony thorax intact again with osteopenia and mild degenerative changes.
[2022-06-14 19:56] LABS: INFLUENZA A NEGATIVE (NEGATIVE); INFLUENZA B NEGATIVE (NEGATIVE); RESPIRATORY SYNCTIAL VIRUS NEGATIVE (NEGATIVE); SARS-CoV-2 Xpert Express NEGATIVE (NEGATIVE)
--- NOTE | 2022-06-14 21:05 | PCM.HP ---
History of Present Illness - Chief Complaint Chief Complaint: uti Date: 06/14/22 History of Present Illness: is a 66 year old male. 66 yo wm with hx of HTN, HLP, COPD(not on O2/inhalers) presents with 2 days of left scrotal pain and swelling along with back pain. Pt denies dysuria/penile discharge or trauma. Denies fevers. UA c/w UTI. Imaging c/w epididymitis. He also had a CT of his chest that showed possible lingular torsion but overread along with consultation to CVTS at 2 other hospitals was not c/w. He denies cough/pleuritic pain. He was started on rocephin. - Review of Systems Constitutional: No Fever Eyes: No Symptoms Ears, Nose, & Throat: No Symptoms Respiratory: Short Of Breath Cardiac: No Chest Pain Abdominal/Gastrointestinal: No Symptoms Genitourinary Symptoms: Testicle Pain Musculoskeletal: Arthralgias, Back Pain Skin: No Symptoms Neurological: No Symptoms Psychological: No Symptoms Endocrine: No Symptoms Hematologic/Lymphatic: No Symptoms Medications & Allergies Home Medications: Home Medication List Metoprolol Tartrate 25 mg [Lopressor 25MG Tab] 50 mg PO BID 06/06/18 [History Confirmed 06/14/22] Lisinopril 20 mg [Zestril 20 MG] 10 mg PO HS 06/16/18 [History Confirmed 06/14/22] Ibuprofen 800 mg PO BID 07/16/18 [History Confirmed 06/14/22] Atorvastatin Calcium [Lipitor 20MG Tablet] 20 mg PO DAILY 06/14/22 [History Confirmed 06/14/22] Allergies/Adverse Reactions: Allergies Allergy/AdvReac Type Severity Reaction Status Date / Time Penicillins Allergy Verified 06/14/22 10:57 - Past Medical History Past Medical History: Yes Neurological History: No Pertinent History ENT History: No Pertinent History Cardiac History: Hypertension Respiratory History: No Pertinent History Endocrine Medical History: No Pertinent History Musculoskelatal History: No Pertinent History GI Medical History: No Pertinent History History: No Pertinent History Pyscho-Social History: No Pertinent History Male Reproductive Disorders: No Pertinent History - Past Surgical History Past Surgical History: Yes Neuro Surgical History: No Pertinent History Cardiac History: No Pertinent History Respiratory Surgery: No Pertinent History GI Surgical History: No Pertinent History Genitourinary Surgical Hx: No Pertinent History Musculskeletal Surgical Hx: No Pertinent History Male Surgical History: No Pertinent History Other Surgical History: SPLEEN REMOVED-several years ago - Social History Smoking Status: Former smoker How long have you smoked: YRS Exposure to second hand smoke: No Alcohol: None Drug Use: none - Physical Exam Vital Signs: Vital Signs - 24 hr Temp Pulse Resp BP Pulse Ox 06/14/22 20:02 94 H 28 H 135/77 97 06/14/22 19:26 89 L 06/14/22 19:00 92 H 24 94/78 100 06/14/22 17:09 91 H 22 155/89 97 06/14/22 16:20 86 18 160/84 97 06/14/22 15:00 100 H 18 100 06/14/22 12:27 92 H 18 151/83 98 06/14/22 11:44 46 L 18 159/89 99 06/14/22 11:03 97.9 F 63 18 159/115 89 L Neurologic Exam: alert, oriented x 3 Eye Exam: PERRL/EOMI Ears, Nose, Throat Exam: normal ENT inspection Neck Exam: normal inspection Respiratory Exam: normal breath sounds Cardiovascular Exam: regular rate/rhythm Gastrointestinal/Abdomen Exam: soft, normal bowel sounds, No tenderness Male Genitalia Exam: other (marked scrotal enlargement and erythema) Back Exam: normal inspection Extremity Exam: normal inspection, normal range of motion Skin Exam: normal color Results - Labs Lab/Micro Results: Lab Results-Last 24 Hours 06/14/22 06/14/22 06/14/22 Range/Units 11:25 11:25 11:25 WBC 21.5 H (4.0-10.5) x10^3/uL RBC 5.25 (4.1-5.6) x10^6/uL Hgb 16.0 (12.5-18.0) g/dL Hct 48.4 (42-50) % MCV 92.2 (78-100) fL MCH 30.5 (26-32) pg MCHC 33.1 (32-36) g/dL RDW 13.3 (11.5-14.0) % Plt Count 459 H (150-450) x10^3/uL MPV 9.4 (7.5-11.0) fL Gran % 69.3 H (36.0-66.0) % Immature Gran % (Auto) 0.4 (0.00-0.4) % Nucleat RBC Rel Count 0.0 (0.00-0.1) % Eos # (Auto) 0.18 (0-0.5) x10^3/uL Immature Gran # (Auto) 0.08 H (0.00-0.03) x10^3u/L Absolute Lymphs (auto) 3.77 (1.0-4.6) x10^3/uL Absolute Monos (auto) 2.44 H (0.0-1.3) x10^3/uL Absolute Nucleated RBC 0.00 (0.00-0.01) x10^3u/L Lymphocytes % 17.6 L (24.0-44.0) % Monocytes % 11.4 (0.0-12.0) % Eosinophils % 0.8 (0.00-5.0) % Basophils % 0.5 (0.0-0.4) % Absolute Granulocytes 14.90 H (1.4-6.9) x10^3/uL Basophils # 0.10 (0-0.4) x10^3/uL Puncture Site pCO2 (35-45) mmHg pO2 (75-100) mmHg Base Excess (-2.0-2.0) O2 Saturation (94-100) g/dF ABG pH (7.35-7.45) ABG HCO3 (22-28) ABG O2 Sat (Measured) (95-100) % Garrison Test A-a Gradient a/A Ratio Hemoglobin Carboxyhemoglobin (0.0-6.9) % THgb Methemoglobin (1.4-1.5) % Potassium 3.8 (3.5-5.1) Temperature C POC O2 Flow Rate % Sodium 139 (137-145) mmol/L Chloride 106 (98-107) mmol/L Carbon Dioxide 23 (22-30) mmol/L Anion Gap 13.8 (5-15) MEQ/L BUN 16 (9-20) mg/dL Creatinine 0.99 (0.66-1.25) mg/dL Estimated GFR > 60.0 ML/MIN Glucose 116 H (74-106) mg/dL Lactic Acid (0.4-2.0) Calcium 8.9 (8.4-10.2) mg/dL Total Bilirubin 0.60 (0.2-1.3) mg/dL AST 22 (17-59) U/L ALT 21 (0-50) U/L Alkaline Phosphatase 75 (38-126) U/L Troponin I 0.017 (0.000-0.034) ng/mL NT-Pro-B Natriuret Pep (<300) pg/mL Serum Total Protein 7.5 (6.3-8.2) g/dL Albumin 4.1 (3.5-5.0) g/dL Urine Color (Yellow) Urine Appearance (Clear) Urine pH (4.6-8.0) Ur Specific [place] (1.005-1.030) Urine Protein (Negative) Urine Glucose (UA) (Negative) mg/dL Urine Ketones (Negative) Urine Blood (Negative) Urine Nitrite (Negative) Urine Bilirubin (Negative) Urine Urobilinogen (0.2) mg/dL Ur Leukocyte Esterase (Negative) U Hyaline Cast (Auto) (0-2) /LPF Urine Microscopic RBC (0-5) /HPF Urine Microscopic WBC (0-5) /HPF Ur Epithelial Cells (None Seen) /HPF Urine Bacteria (None Seen) /HPF Urine Culture Reflexed (NO) Urine Opiates Level (NEGATIVE) Ur Methadone (NEGATIVE) Urine Barbiturates (NEGATIVE) Ur Phencyclidine (PCP) (NEGATIVE) Urine Amphetamine (NEGATIVE) U Benzodiazepine Level (NEGATIVE) Urine Cocaine (NEGATIVE) Urine Marijuana (THC) (NEGATIVE) Influenza Type A Ag (NEGATIVE) Influenza Type B Ag (NEGATIVE) RSV (PCR) (NEGATIVE) SARS-CoV-2 (PCR) (NEGATIVE) Slides for Path Review YES 06/14/22 06/14/22 06/14/22 Range/Units 11:25 12:15 12:27 WBC (4.0-10.5) x10^3/uL RBC (4.1-5.6) x10^6/uL Hgb (12.5-18.0) g/dL Hct (42-50) % MCV (78-100) fL MCH (26-32) pg MCHC (32-36) g/dL RDW (11.5-14.0) % Plt Count (150-450) x10^3/uL MPV (7.5-11.0) fL Gran % (36.0-66.0) % Immature Gran % (Auto) (0.00-0.4) % Nucleat RBC Rel Count (0.00-0.1) % Eos # (Auto) (0-0.5) x10^3/uL Immature Gran # (Auto) (0.00-0.03) x10^3u/L Absolute Lymphs (auto) (1.0-4.6) x10^3/uL Absolute Monos (auto) (0.0-1.3) x10^3/uL Absolute Nucleated RBC (0.00-0.01) x10^3u/L Lymphocytes % (24.0-44.0) % Monocytes % (0.0-12.0) % Eosinophils % (0.00-5.0) % Basophils % (0.0-0.4) % Absolute Granulocytes (1.4-6.9) x10^3/uL Basophils # (0-0.4) x10^3/uL Puncture Site RIGHT RADIAL pCO2 32 L (35-45) mmHg pO2 104 H (75-100) mmHg Base Excess 1.9 (-2.0-2.0) O2 Saturation 96.1 (94-100) g/dF ABG pH 7.49 H (7.35-7.45) ABG HCO3 24.4 (22-28) ABG O2 Sat (Measured) 99.6 (95-100) % Garrison Test YES A-a Gradient 113 a/A Ratio 0.48 Hemoglobin 16.6 Carboxyhemoglobin 2.7 (0.0-6.9) % THgb Methemoglobin 0.7 L (1.4-1.5) % Potassium 3.8 (3.5-5.1) Temperature 37.0 C POC O2 Flow Rate 36 % Sodium (137-145) mmol/L Chloride (98-107) mmol/L Carbon Dioxide (22-30) mmol/L Anion Gap (5-15) MEQ/L BUN (9-20) mg/dL Creatinine (0.66-1.25) mg/dL Estimated GFR ML/MIN Glucose (74-106) mg/dL Lactic Acid 1.5 (0.4-2.0) Calcium (8.4-10.2) mg/dL Total Bilirubin (0.2-1.3) mg/dL AST (17-59) U/L ALT (0-50) U/L Alkaline Phosphatase (38-126) U/L Troponin I (0.000-0.034) ng/mL NT-Pro-B Natriuret Pep (<300) pg/mL Serum Total Protein (6.3-8.2) g/dL Albumin (3.5-5.0) g/dL Urine Color Yellow (Yellow) Urine Appearance Cloudy A (Clear) Urine pH 5.5 (4.6-8.0) Ur Specific [place] 1.025 (1.005-1.030) Urine Protein 30 (Negative) Urine Glucose (UA) 100 A (Negative) mg/dL Urine Ketones Negative (Negative) Urine Blood Small A (Negative) Urine Nitrite Positive A (Negative) Urine Bilirubin Negative (Negative) Urine Urobilinogen 0.2 (0.2) mg/dL Ur Leukocyte Esterase Large A (Negative) U Hyaline Cast (Auto) NONE SEEN (0-2) /LPF Urine Microscopic RBC 0-2 (0-5) /HPF Urine Microscopic WBC >100 A (0-5) /HPF Ur Epithelial Cells None Seen (None Seen) /HPF Urine Bacteria Many A (None Seen) /HPF Urine Culture Reflexed YES (NO) Urine Opiates Level (NEGATIVE) Ur Methadone (NEGATIVE) Urine Barbiturates (NEGATIVE) Ur Phencyclidine (PCP) (NEGATIVE) Urine Amphetamine (NEGATIVE) U Benzodiazepine Level (NEGATIVE) Urine Cocaine (NEGATIVE) Urine Marijuana (THC) (NEGATIVE) Influenza Type A Ag (NEGATIVE) Influenza Type B Ag (NEGATIVE) RSV (PCR) (NEGATIVE) SARS-CoV-2 (PCR) (NEGATIVE) Slides for Path Review 06/14/22 06/14/22 06/14/22 Range/Units 12:27 14:00 19:17 WBC (4.0-10.5) x10^3/uL RBC (4.1-5.6) x10^6/uL Hgb (12.5-18.0) g/dL Hct (42-50) % MCV (78-100) fL MCH (26-32) pg MCHC (32-36) g/dL RDW (11.5-14.0) % Plt Count (150-450) x10^3/uL MPV (7.5-11.0) fL Gran % (36.0-66.0) % Immature Gran % (Auto) (0.00-0.4) % Nucleat RBC Rel Count (0.00-0.1) % Eos # (Auto) (0-0.5) x10^3/uL Immature Gran # (Auto) (0.00-0.03) x10^3u/L Absolute Lymphs (auto) (1.0-4.6) x10^3/uL Absolute Monos (auto) (0.0-1.3) x10^3/uL Absolute Nucleated RBC (0.00-0.01) x10^3u/L Lymphocytes % (24.0-44.0) % Monocytes % (0.0-12.0) % Eosinophils % (0.00-5.0) % Basophils % (0.0-0.4) % Absolute Granulocytes (1.4-6.9) x10^3/uL Basophils # (0-0.4) x10^3/uL Puncture Site pCO2 (35-45) mmHg pO2 (75-100) mmHg Base Excess (-2.0-2.0) O2 Saturation (94-100) g/dF ABG pH (7.35-7.45) ABG HCO3 (22-28) ABG O2 Sat (Measured) (95-100) % Garrison Test A-a Gradient a/A Ratio Hemoglobin Carboxyhemoglobin (0.0-6.9) % THgb Methemoglobin (1.4-1.5) % Potassium (3.5-5.1) Temperature C POC O2 Flow Rate % Sodium (137-145) mmol/L Chloride (98-107) mmol/L Carbon Dioxide (22-30) mmol/L Anion Gap (5-15) MEQ/L BUN (9-20) mg/dL Creatinine (0.66-1.25) mg/dL Estimated GFR ML/MIN Glucose (74-106) mg/dL Lactic Acid (0.4-2.0) Calcium (8.4-10.2) mg/dL Total Bilirubin (0.2-1.3) mg/dL AST (17-59) U/L ALT (0-50) U/L Alkaline Phosphatase (38-126) U/L Troponin I 0.021 (0.000-0.034) ng/mL NT-Pro-B Natriuret Pep (<300) pg/mL Serum Total Protein (6.3-8.2) g/dL Albumin (3.5-5.0) g/dL Urine Color (Yellow) Urine Appearance (Clear) Urine pH (4.6-8.0) Ur Specific [place] (1.005-1.030) Urine Protein (Negative) Urine Glucose (UA) (Negative) mg/dL Urine Ketones (Negative) Urine Blood (Negative) Urine Nitrite (Negative) Urine Bilirubin (Negative) Urine Urobilinogen (0.2) mg/dL Ur Leukocyte Esterase (Negative) U Hyaline Cast (Auto) (0-2) /LPF Urine Microscopic RBC (0-5) /HPF Urine Microscopic WBC (0-5) /HPF Ur Epithelial Cells (None Seen) /HPF Urine Bacteria (None Seen) /HPF Urine Culture Reflexed (NO) Urine Opiates Level NEGATIVE (NEGATIVE) Ur Methadone NEGATIVE (NEGATIVE) Urine Barbiturates NEGATIVE (NEGATIVE) Ur Phencyclidine (PCP) NEGATIVE (NEGATIVE) Urine Amphetamine POSITIVE (NEGATIVE) U Benzodiazepine Level NEGATIVE (NEGATIVE) Urine Cocaine NEGATIVE (NEGATIVE) Urine Marijuana (THC) NEGATIVE (NEGATIVE) Influenza Type A Ag NEGATIVE (NEGATIVE) Influenza Type B Ag NEGATIVE (NEGATIVE) RSV (PCR) NEGATIVE (NEGATIVE) SARS-CoV-2 (PCR) NEGATIVE (NEGATIVE) Slides for Path Review 06/14/22 06/14/22 Range/Units 19:26 Unknown WBC (4.0-10.5) x10^3/uL RBC (4.1-5.6) x10^6/uL Hgb (12.5-18.0) g/dL Hct (42-50) % MCV (78-100) fL MCH (26-32) pg MCHC (32-36) g/dL RDW (11.5-14.0) % Plt Count (150-450) x10^3/uL MPV (7.5-11.0) fL Gran % (36.0-66.0) % Immature Gran % (Auto) (0.00-0.4) % Nucleat RBC Rel Count (0.00-0.1) % Eos # (Auto) (0-0.5) x10^3/uL Immature Gran # (Auto) (0.00-0.03) x10^3u/L Absolute Lymphs (auto) (1.0-4.6) x10^3/uL Absolute Monos (auto) (0.0-1.3) x10^3/uL Absolute Nucleated RBC (0.00-0.01) x10^3u/L Lymphocytes % (24.0-44.0) % Monocytes % (0.0-12.0) % Eosinophils % (0.00-5.0) % Basophils % (0.0-0.4) % Absolute Granulocytes (1.4-6.9) x10^3/uL Basophils # (0-0.4) x10^3/uL Puncture Site pCO2 (35-45) mmHg pO2 (75-100) mmHg Base Excess (-2.0-2.0) O2 Saturation (94-100) g/dF ABG pH (7.35-7.45) ABG HCO3 (22-28) ABG O2 Sat (Measured) (95-100) % Garrison Test A-a Gradient a/A Ratio Hemoglobin Carboxyhemoglobin (0.0-6.9) % THgb Methemoglobin (1.4-1.5) % Potassium (3.5-5.1) Temperature C POC O2 Flow Rate % Sodium (137-145) mmol/L Chloride (98-107) mmol/L Carbon Dioxide (22-30) mmol/L Anion Gap (5-15) MEQ/L BUN (9-20) mg/dL Creatinine (0.66-1.25) mg/dL Estimated GFR ML/MIN Glucose (74-106) mg/dL Lactic Acid (0.4-2.0) Calcium (8.4-10.2) mg/dL Total Bilirubin (0.2-1.3) mg/dL AST (17-59) U/L ALT (0-50) U/L Alkaline Phosphatase (38-126) U/L Troponin I 0.022 (0.000-0.034) ng/mL NT-Pro-B Natriuret Pep 576 (<300) pg/mL Serum Total Protein (6.3-8.2) g/dL Albumin (3.5-5.0) g/dL Urine Color (Yellow) Urine Appearance (Clear) Urine pH (4.6-8.0) Ur Specific [place] (1.005-1.030) Urine Protein (Negative) Urine Glucose (UA) (Negative) mg/dL Urine Ketones (Negative) Urine Blood (Negative) Urine Nitrite (Negative) Urine Bilirubin (Negative) Urine Urobilinogen (0.2) mg/dL Ur Leukocyte Esterase (Negative) U Hyaline Cast (Auto) (0-2) /LPF Urine Microscopic RBC (0-5) /HPF Urine Microscopic WBC (0-5) /HPF Ur Epithelial Cells (None Seen) /HPF Urine Bacteria (None Seen) /HPF Urine Culture Reflexed (NO) Urine Opiates Level (NEGATIVE) Ur Methadone (NEGATIVE) Urine Barbiturates (NEGATIVE) Ur Phencyclidine (PCP) (NEGATIVE) Urine Amphetamine (NEGATIVE) U Benzodiazepine Level (NEGATIVE) Urine Cocaine (NEGATIVE) Urine Marijuana (THC) (NEGATIVE) Influenza Type A Ag (NEGATIVE) Influenza Type B Ag (NEGATIVE) RSV (PCR) (NEGATIVE) SARS-CoV-2 (PCR) (NEGATIVE) Slides for Path Review - Radiology Impressions Radiology Exams & Impressions: Radiology Procedures Category Date Time Status CHEST 1 VIEW (PORTABLE) Stat Exams 06/14/22 11:34 Completed CHEST WITH CONTRAST [CT] Stat Exams 06/14/22 15:09 Completed CHEST WITHOUT CONTRAST [CT] Stat Exams 06/14/22 13:05 Completed TESTICLE [US] Stat Exams 06/14/22 11:14 Completed Assessment/Plan (1) UTI (urinary tract infection) Current Visit: Yes Status: Acute Assessment & Plan: A/P: 66 yo wm with hx HTN, HLP, COPD admitted with pyelonephritis and epididymitis. 1. Pyelonephritis and Epididymitis: GC/Chlamydia probe. F/u culture. Continue rocephin. Ice packs to scrotum/elevate. [place] for pain. 2. Abnormal CT Chest: odd line noted in lingula that apparently not present before. Radiology overread and did not think this was torsion. No sxs to suggest. Not classic clinical situation for this rare issue. 3. HTN: Continue metop and lisinopril 4. COPD: Chart diagnosis. Not hypoxemic on ABG(RA). Will need outpt PFTs. Does not appear to be in exac 5. FEN: oral diet 6. PX: Lovenox Italo Mir MD entire encounter done via telemedicine. Code(s): N39.0 - URINARY TRACT INFECTION, SITE NOT SPECIFIED Telemedicine Encounter - Telemedicine Encounter Telemedicine Encounter: The entirety of this encounter was performed via Telemedicine"
[2022-06-14] MEDS: NORCO 5/325 MG PO PRN (21:37)
[2022-06-15 00:06] LABS: CHLAMYDIA DNA NOT DETECTED (NEGATIVE); GC DNA Probe NOT DETECTED (NEGATIVE)
[2022-06-15] MEDS: MORPHINE SULFATE 2 MG INJ IV PRN ×3 (03:04→15:40)
[2022-06-15 05:01] LABS: Absolute Neutrophil Ct (ANC) 15.05 x10^3/uL (1.4-6.9); BASOPHIL % 0.5 % (0.0-0.4); Eosinophil % 1.1 % (0.00-5.0); Eosinophil (Absolute #) 0.21 x10^3/uL (0-0.5); Hematocrit 48.4 % (42-50); Hemoglobin 15.8 g/dL (12.5-18.0); IMMATURE GRAN # 0.08 x10^3u/L (0.00-0.03); IMMATURE GRAN % 0.4 % (0.00-0.4); Lymphocytes % 12.1 % (24.0-44.0); Mean Cell Volume 91.8 fL (78-100); Mean Corpuscular Hgb Concent. 32.6 g/dL (32-36); Mean Platelet Volume 10.1 fL (7.5-11.0); Monocyte (Absolute #) 1.97 x10^3/uL (0.0-1.3); Monocytes % 9.9 % (0.0-12.0); Platelet Count 463 x10^3/uL (150-450); Red Blood Count 5.27 x10^6/uL (4.1-5.6); Red Cell Distribution Width 13.8 % (11.5-14.0); White Blood Count 19.8 x10^3/uL (4.0-10.5)
[2022-06-15 05:20] LABS: ANION GAP 10.1 MEQ/L (5-15); BLOOD UREA NITROGEN 15 mg/dL (9-20); CHLORIDE 106 mmol/L (98-107); Calcium 8.7 mg/dL (8.4-10.2); Carbon Dioxide 27 mmol/L (22-30); EST GLOMERULAR FILTRATION RATE > 60.0 ML/MIN; Glucose 120 mg/dL (74-106); Potassium 4.5 mmol/L (3.5-5.1); SODIUM 138 mmol/L (137-145)
[2022-06-15 08:11] LABS: Slide Review 1 YES
[2022-06-15] MEDS ORDERED: ROCEPHIN 1 Gm-D5w 50 ml Bag** 1 G/50 ML IVPB IV SCH (10:00)
[2022-06-15] MEDS ORDERED: ENOXAPARIN SODIUM SQ SCH (10:00)
[2022-06-15] MEDS ORDERED: IBUPROFEN 800 MG PO SCH (10:00)
[2022-06-15] MEDS ORDERED: Zestril 10 MG PO SCH ×2 (10:00→22:00)
[2022-06-15] MEDS ORDERED: MOTRIN 400 MG PO SCH (10:00)
[2022-06-15] MEDS ORDERED: Lopressor 50 MG PO SCH (10:00)
[2022-06-15] MEDS ORDERED: ZOCOR 20MG PO SCH (10:00)
[2022-06-15] MEDS ORDERED: NON-FORMULARY ITEM (Atorvastatin Calcium 20 MG Tab) PO SCH (10:00)
--- NOTE | 2022-06-15 14:28 | PCM.NOTE ---
Date and Time: 06/15/221417 Subjective Assessment: Patient admitted with left testicular and scrotal pain and swelling . Dg epididymitis. C/O scrotal pain ,some relief with IV Morphine dose. Was started on Rocephin in ER, US was negative for testicular torsion. I discussed case with Dr Bella due to level of pain and if repeat US is needed. He advised 10-14 days antibiotics and see him as outpatient. Objective Exam General Appearance: moderate distress (testicular/scrotal pain) Neurologic Exam: alert, oriented x 3, cooperative, agitation Skin Exam: normal color, warm, dry Neck Exam: normal inspection Respiratory Exam: normal breath sounds Cardiovascular Exam: regular rate/rhythm Gastrointestinal/Abdomen Exam: soft, normal bowel sounds (nontender) Back Exam: other (no CVA tenderness) Male Genitalia Exam: testicular tenderness (left ,ttp3+/4, Scrotum red and increased heat,no discharge) OBJECTIVE DATA Vital Signs: Vital Signs - 24 hr Temp Pulse Resp BP Pulse Ox 06/15/22 11:59 98.2 F 86 21 158/63 96 06/15/22 07:14 97.3 F 58 L 22 175/81 98 06/15/22 03:45 76 127/69 06/15/22 03:38 98.2 F 88 19 155/100 98 06/15/22 00:00 98.4 F 81 16 126/58 95 06/14/22 20:57 97.5 F 72 20 132/72 97 06/14/22 20:02 94 H 28 H 135/77 97 06/14/22 19:26 89 L 06/14/22 19:00 92 H 24 94/78 100 06/14/22 17:09 91 H 22 155/89 97 06/14/22 16:20 86 18 160/84 97 06/14/22 15:00 100 H 18 100 Pain Assessment - Last Documented Pain Intensity 3 Pain Scale Used 0-10 Pain Scale Intake and Output: Intake & Output 06/13/22 06/14/22 06/15/22 06/16/22 11:59 11:59 11:59 11:59 Intake Total 600 600 Output Total 350 Balance 250 600 Weight 91.626 kg 93.9 kg Lab Results: Lab Results-Last 24 Hours 06/14/22 06/14/22 06/14/22 Range/Units 14:00 19:17 19:26 WBC (4.0-10.5) x10^3/uL RBC (4.1-5.6) x10^6/uL Hgb (12.5-18.0) g/dL Hct (42-50) % MCV (78-100) fL MCH (26-32) pg MCHC (32-36) g/dL RDW (11.5-14.0) % Plt Count (150-450) x10^3/uL MPV (7.5-11.0) fL Gran % (36.0-66.0) % Immature Gran % (Auto) (0.00-0.4) % Nucleat RBC Rel Count (0.00-0.1) % Eos # (Auto) (0-0.5) x10^3/uL Immature Gran # (Auto) (0.00-0.03) x10^3u/L Absolute Lymphs (auto) (1.0-4.6) x10^3/uL Absolute Monos (auto) (0.0-1.3) x10^3/uL Absolute Nucleated RBC (0.00-0.01) x10^3u/L Lymphocytes % (24.0-44.0) % Monocytes % (0.0-12.0) % Eosinophils % (0.00-5.0) % Basophils % (0.0-0.4) % Absolute Granulocytes (1.4-6.9) x10^3/uL Basophils # (0-0.4) x10^3/uL Sodium (137-145) mmol/L Potassium (3.5-5.1) mmol/L Chloride (98-107) mmol/L Carbon Dioxide (22-30) mmol/L Anion Gap (5-15) MEQ/L BUN (9-20) mg/dL Creatinine (0.66-1.25) mg/dL Estimated GFR ML/MIN Glucose (74-106) mg/dL Calcium (8.4-10.2) mg/dL Troponin I 0.021 0.022 (0.000-0.034) ng/mL Chlamydia DNA Probe (NEGATIVE) Influenza Type A Ag NEGATIVE (NEGATIVE) Influenza Type B Ag NEGATIVE (NEGATIVE) N.gonorrhoeae DNA Probe (NEGATIVE) RSV (PCR) NEGATIVE (NEGATIVE) SARS-CoV-2 (PCR) NEGATIVE (NEGATIVE) Slides for Path Review 06/14/22 06/15/22 06/15/22 Range/Units 22:35 04:32 04:32 WBC 19.8 H (4.0-10.5) x10^3/uL RBC 5.27 (4.1-5.6) x10^6/uL Hgb 15.8 (12.5-18.0) g/dL Hct 48.4 (42-50) % MCV 91.8 (78-100) fL MCH 30.0 (26-32) pg MCHC 32.6 (32-36) g/dL RDW 13.8 (11.5-14.0) % Plt Count 463 H (150-450) x10^3/uL MPV 10.1 (7.5-11.0) fL Gran % 76.0 H (36.0-66.0) % Immature Gran % (Auto) 0.4 (0.00-0.4) % Nucleat RBC Rel Count 0.0 (0.00-0.1) % Eos # (Auto) 0.21 (0-0.5) x10^3/uL Immature Gran # (Auto) 0.08 H (0.00-0.03) x10^3u/L Absolute Lymphs (auto) 2.40 (1.0-4.6) x10^3/uL Absolute Monos (auto) 1.97 H (0.0-1.3) x10^3/uL Absolute Nucleated RBC 0.00 (0.00-0.01) x10^3u/L Lymphocytes % 12.1 L (24.0-44.0) % Monocytes % 9.9 (0.0-12.0) % Eosinophils % 1.1 (0.00-5.0) % Basophils % 0.5 (0.0-0.4) % Absolute Granulocytes 15.05 H (1.4-6.9) x10^3/uL Basophils # 0.10 (0-0.4) x10^3/uL Sodium 138 (137-145) mmol/L Potassium 4.5 (3.5-5.1) mmol/L Chloride 106 (98-107) mmol/L Carbon Dioxide 27 (22-30) mmol/L Anion Gap 10.1 (5-15) MEQ/L BUN 15 (9-20) mg/dL Creatinine 0.90 (0.66-1.25) mg/dL Estimated GFR > 60.0 ML/MIN Glucose 120 H (74-106) mg/dL Calcium 8.7 (8.4-10.2) mg/dL Troponin I (0.000-0.034) ng/mL Chlamydia DNA Probe NOT DETECTED (NEGATIVE) Influenza Type A Ag (NEGATIVE) Influenza Type B Ag (NEGATIVE) N.gonorrhoeae DNA Probe NOT DETECTED (NEGATIVE) RSV (PCR) (NEGATIVE) SARS-CoV-2 (PCR) (NEGATIVE) Slides for Path Review YES Radiology Exams: Radiology Procedures Category Date Time Status CHEST 1 VIEW (PORTABLE) Stat Exams 06/14/22 11:34 Completed CHEST WITH CONTRAST [CT] Stat Exams 06/14/22 15:09 Completed CHEST WITHOUT CONTRAST [CT] Stat Exams 06/14/22 13:05 Completed TESTICLE [US] Stat Exams 06/14/22 11:14 Completed Multi-Disciplinary Progress Notes: Multi-Disciplinary Progress Notes 06/15/22 11:36 Case Management Note by Elaina Kessler S/W [facility]- THEY REPORT PATIENT DOES NOT HAVE DOCUMENTATION TO SUPPORT OXYGEN AT HOME. IF PATIENT NEEDS OXYGEN AT TIME OF DC IT NEEDS TO BE LIKE A NEW SET UP WITH A NEW ORDER Initialized on 06/15/22 11:36 - END OF NOTE Assessment/Plan (1) Epididymitis Current Visit: Yes Status: Acute Assessment & Plan: IV Rocephin and oral Levaquin Code(s): N45.1 - EPIDIDYMITIS (2) Testicular/scrotal pain Current Visit: Yes Status: Acute Assessment & Plan: Morphine given with some relief Code(s): [id number] - (3) Hypertension Current Visit: No Status: Chronic Qualifiers: Hypertension type: unspecified Qualified Code(s): I10 - Essential (primary) hypertension Assessment & Plan: monitor Code(s): I10 - ESSENTIAL (PRIMARY) HYPERTENSION
[2022-06-15] MEDS ORDERED: Levofloxacin 500 MG Tablet PO SCH (15:00)
[2022-06-16] MEDS: NORCO 5/325 MG PO PRN ×2 (03:14→07:48)
[2022-06-16 05:09] LABS: Absolute Neutrophil Ct (ANC) 11.24 x10^3/uL (1.4-6.9); BASOPHIL % 0.8 % (0.0-0.4); Basophil (Absolute #) 0.13 x10^3/uL (0-0.4); Eosinophil % 1.9 % (0.00-5.0); Eosinophil (Absolute #) 0.29 x10^3/uL (0-0.5); Hematocrit 49.9 % (42-50); IMMATURE GRAN # 0.06 x10^3u/L (0.00-0.03); IMMATURE GRAN % 0.4 % (0.00-0.4); Lymphocyte (Absolute #) 2.43 x10^3/uL (1.0-4.6); Lymphocytes % 15.6 % (24.0-44.0); Mean Cell Volume 92.6 fL (78-100); Mean Corpuscular Hemoglobin 29.7 pg (26-32); Mean Corpuscular Hgb Concent. 32.1 g/dL (32-36); Mean Platelet Volume 9.7 fL (7.5-11.0); Neutrophil % 72.3 % (36.0-66.0); Platelet Count 441 x10^3/uL (150-450); Red Blood Count 5.39 x10^6/uL (4.1-5.6); Red Cell Distribution Width 13.4 % (11.5-14.0); White Blood Count 15.6 x10^3/uL (4.0-10.5)
[2022-06-16 05:39] LABS: ALBUMIN 3.9 g/dL (3.5-5.0); ALKALINE PHOSPHATASE 82 U/L (38-126); ANION GAP 7.9 MEQ/L (5-15); BLOOD UREA NITROGEN 17 mg/dL (9-20); CHLORIDE 105 mmol/L (98-107); Calcium 8.5 mg/dL (8.4-10.2); Carbon Dioxide 27 mmol/L (22-30); Creatinine 1 0.87 mg/dL (0.66-1.25); EST GLOMERULAR FILTRATION RATE > 60.0 ML/MIN; Glucose 106 mg/dL (74-106); Potassium 4.5 mmol/L (3.5-5.1); SGOT/AST 31 U/L (17-59); SGPT/ALT 23 U/L (0-50); SODIUM 135 mmol/L (137-145); Total Protein 7.5 g/dL (6.3-8.2)
[2022-06-16 07:02] VITALS: BP 114/99; PULSE 79
[2022-06-16 07:22] VITALS: O2SAT 98
[2022-06-16] MEDS ORDERED: Zestril 10 MG PO SCH (10:00)
== END 2022-06-16 08:29 | disposition left against medical advice (07) | DRG 690 ==
LOC: ED 10:49 → OBSVTOIN 20:05 → MED SURG 20:05
PROVIDERS: ADMIT Internal Medicine Critical Care Medicine; ATTEND Family Medicine
DX: N39.0 Urinary tract infection, site not specified (principal); I10 Essential (primary) hypertension; J44.9 Chronic obstructive pulmonary disease, unspecified; N45.1 Epididymitis; N50.82 Scrotal pain; Z79.899 Other long term (current) drug therapy; Z20.828 Contact with and (suspected) exposure to other viral communicable diseases
CPT/HCPCS: 0241U; 36000; 36415; 36600; 71045; 71250; 71260; 76870; 80048; 80053; 80307; 81001; 82375; 82803; 83605; 83880; 84484; 85025; 87040; 87077; 87086; 87186; 87491; 87591; 93005; 94760; 96365; 96374; 99285; J0696; J1885; J2270; A9270-GY

== ENCOUNTER 2023-01-19 15:33 | Observation (INO) | payer MEDICARE, OTHER ==
--- NOTE | 2023-01-19 15:51 | ERPHSYRPT ---
- History of Present Illness Time Seen by Provider: 01/19/23 15:49 Source: patient Physician History: Patient is a 67-year-old male presents to our ED via EMS for evaluation of shortness of breath. Patient states shortness of breath started approximately 1 hour prior to arrival. However patient states that he has been experiencing shortness of breath for approximately 1 month. Shortness of breath worse with activity. No trauma no fever. Patient is a non-smoker. No exposure to allergies. No associated chest pain. No nausea no vomiting no diaphoresis. Patient received a DuoNeb and Solu-Medrol in route per EMS. Symptoms are moderate in intensity. Patient is tachypneic on exam. However lung sounds are clear. Patient voices no other complaints or concerns at this time. Portions of this note were created with voice recognition technology. There may be grammatical, spelling, punctuation or sound alike errors Timing/Duration: today (Shortness of breath started this morning however patient states he has been experiencing morning shortness of breath for the past month.) Activities at Onset: none Severity of Dyspnea-Max: moderate Severity of Dyspnea-Current: mild Possible Cause: no prior episodes Modifying Factors: Improves With: activity Associated Symptoms: denies symptoms Allergies/Adverse Reactions: Penicillins Allergy (Verified 01/19/23 15:40) Home Medications: Ibuprofen 800 mg PO DAILY PRN 07/16/18 [History] Atorvastatin Calcium [Lipitor 20MG Tablet] 20 mg PO DAILY 06/14/22 [History] Lisinopril 10 mg [Zestril 10 MG] 1 tab PO DAILY 01/19/23 [History] Metoprolol Succinate 50 mg [Toprol Xl 50 MG] 1 tab PO DAILY 01/19/23 [History] Hx Tetanus, Diphtheria Vaccination/Date Given: No Hx Influenza Vaccination/Date Given: No Hx Pneumococcal Vaccination/Date Given: No Travel Risk - Vaccine Status Have you recieved a Covid-19 vaccination: Yes Specification Writer: Unknown - Vaccination Dates Dates if Unknown: unknown - Review of Systems Constitutional: No Symptoms, No Fever, No Chills Eyes: No Symptoms Ears, Nose, & Throat: No Symptoms Respiratory: No Symptoms, No Cough, No Dyspnea Cardiac: No Symptoms, No Chest Pain, No Edema, No Syncope Abdominal/Gastrointestinal: No Symptoms, No Abdominal Pain, No Nausea, No Vomiting, No Diarrhea Genitourinary Symptoms: No Symptoms, No Dysuria Musculoskeletal: No Symptoms, No Back Pain, No Neck Pain Skin: No Symptoms, No Rash Neurological: No Symptoms, No Dizziness, No Focal Weakness, No Sensory Changes Psychological: No Symptoms Endocrine: No Symptoms Hematologic/Lymphatic: No Symptoms Immunological/Allergic: No Symptoms All Other Systems: Reviewed and Negative - Past Medical History Pertinent Past Medical History: Yes Neurological History: No Pertinent History ENT History: No Pertinent History Cardiac History: Hypertension Respiratory History: No Pertinent History Endocrine Medical History: No Pertinent History Musculoskeletal History: No Pertinent History GI Medical History: No Pertinent History History: No Pertinent History Psycho-Social History: No Pertinent History Male Reproductive Disorders: No Pertinent History Other Medical History: pt is a poor historian, and unsure. recalled from ER - Past Surgical History Past Surgical History: Yes Neuro Surgical History: No Pertinent History Cardiac: No Pertinent History Respiratory: No Pertinent History Gastrointestinal: No Pertinent History Genitourinary: No Pertinent History Musculoskeletal: No Pertinent History Male Surgical History: No Pertinent History Other Surgical History: SPLEEN REMOVED-several years ago - Social History Smoking Status: Former smoker How long have you smoked: YRS Exposure to second hand smoke: No Drug Use: none Patient Lives Alone: Yes - Nursing Vital Signs Nursing Vital Signs: Initial Vital Signs Temperature 97.6 F 01/19/23 15:35 Pulse Rate 85 01/19/23 15:35 Respiratory Rate 23 01/19/23 15:35 Blood Pressure 143/83 01/19/23 15:35 O2 Sat by Pulse Oximetry 93 L 01/19/23 15:35 Pain Scale Pain Intensity 0 - Physical Exam General Appearance: no apparent distress, alert Eye Exam: PERRL/EOMI, eyes nml inspection Ears, Nose, Throat Exam: hearing grossly normal, normal ENT inspection, normal pharynx Neck Exam: normal inspection, supple Respiratory Exam: normal breath sounds, lungs clear, respiratory distress (Pa edwigent is tachypneic. However oxygenation is within normal limits.), airway intact Cardiovascular/Chest Exam: normal heart sounds, regular rate/rhythm Abdominal/Gastrointestinal Exam: soft, normal bowel sounds, No tenderness, No distention, No mass, No guarding Extremity Exam: non-tender, normal range of motion, normal inspection, no calf tenderness, no pedal edema Peripheral Pulses Exam: dorsalis-pedis (R): 2+, dorsalis-pedis (L): 2+ Neurologic Exam: alert, oriented x 3, cooperative, decal transferrer II-XII 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, sensation nml, No motor deficits Skin Exam: normal color, warm, No dry Lymphatic Exam: No adenopathy SpO2 Interpretation: normal SpO2: 96 O2 Delivery: Room Air - Course Nursing assessment & vital signs reviewed: Yes EKG Interpreted by Me: RATE ([id number]), Sinus Rhythm, NORMAL AXIS, NORMAL INTERVALS - CT Exams Chest CT Interpretation: Tele-radiologist Report (Negative for PE. Stable emphysema, scattered fibrosis/scarring. Fatty liver no acute findings) Ordered Tests: Active Orders 24 hr Category Date Time Status Content Writer STAT Care 01/19/23 15:44 Active EKG-ER Only STAT Care 01/19/23 15:43 Active IV Insertion STAT Care 01/19/23 15:43 Active Pulse Oximetry (ED) STAT Care 01/19/23 15:43 Active CHEST WITH CONTRAST [CT] Stat Exams 01/19/23 15:44 Taken BLOOD CULTURE Stat Lab 01/19/23 16:14 Received CBC W DIFF Stat Lab 01/19/23 16:06 Completed CMP Stat Lab 01/19/23 16:06 Completed TROPONIN Q4H Lab 01/19/23 16:06 Completed TROPONIN Q4H Lab 01/19/23 19:45 Ordered TROPONIN Q4H Lab 01/19/23 23:45 Ordered UA W/RFX UR CULTURE Stat Lab 01/19/23 17:51 Completed Transfer Order Routine Transfer 01/19/23 Ordered Lab/Rad Data: Laboratory Result Diagrams 01/19/23 16:06 01/19/23 16:06 Laboratory Results 01/19/23 01/19/23 01/19/23 Range/Units 17:51 16:06 16:06 WBC (4.0-10.5) x10^3/uL RBC (4.1-5.6) x10^6/uL Hgb (12.5-18.0) g/dL Hct (42-50) % MCV (78-100) fL MCH (26-32) pg MCHC (32-36) g/dL RDW (11.5-14.0) % Plt Count (150-450) x10^3/uL MPV (7.5-11.0) fL Gran % (36.0-66.0) % Immature Gran % (Auto) (0.00-0.4) % Nucleat RBC Rel Count (0.00-0.1) % Eos # (Auto) (0-0.5) x10^3/uL Immature Gran # (Auto) (0.00-0.03) x10^3u/L Absolute Lymphs (auto) (1.0-4.6) x10^3/uL Absolute Monos (auto) (0.0-1.3) x10^3/uL Absolute Nucleated RBC (0.00-0.01) x10^3u/L Lymphocytes % (24.0-44.0) % Monocytes % (0.0-12.0) % Eosinophils % (0.00-5.0) % Basophils % (0.0-0.4) % Absolute Granulocytes (1.4-6.9) x10^3/uL Basophils # (0-0.4) x10^3/uL Sodium 138 (137-145) mmol/L Potassium 4.3 (3.5-5.1) mmol/L Chloride 107 (98-107) mmol/L Carbon Dioxide 20 L (22-30) mmol/L Anion Gap 15.7 H (5-15) MEQ/L BUN 30 H (9-20) mg/dL Creatinine 0.99 (0.66-1.25) mg/dL Estimated GFR > 60.0 ML/MIN Glucose 129 H (74-106) mg/dL Calcium 8.7 (8.4-10.2) mg/dL Total Bilirubin 0.70 (0.2-1.3) mg/dL AST 30 (17-59) U/L ALT 27 (0-50) U/L Alkaline Phosphatase 71 (38-126) U/L Troponin I < 0.012 (0.000-0.034) ng/mL Serum Total Protein 7.3 (6.3-8.2) g/dL Albumin 4.2 (3.5-5.0) g/dL Urine Color Yellow (Yellow) Urine Appearance Clear (Clear) Urine pH 7.0 (4.6-8.0) Ur Specific Henderson >=1.030 A (1.005-1.030) Urine Protein Negative (Negative) Urine Glucose (UA) Negative (Negative) mg/dL Urine Ketones Negative (Negative) Urine Blood Negative (Negative) Urine Nitrite Negative (Negative) Urine Bilirubin Negative (Negative) Urine Urobilinogen 1.0 A (0.2) mg/dL Ur Leukocyte Esterase Negative (Negative) U Hyaline Cast (Auto) NONE SEEN (0-2) /LPF Urine Microscopic RBC 0-2 (0-5) /HPF Urine Microscopic WBC 0-2 (0-5) /HPF Ur Epithelial Cells None Seen (None Seen) /HPF Urine Bacteria None Seen (None Seen) /HPF Urine Culture Reflexed NO (NO) Influenza Type A Ag (NEGATIVE) Influenza Type B Ag (NEGATIVE) RSV (PCR) (NEGATIVE) SARS-CoV-2 (PCR) (NEGATIVE) 01/19/23 01/19/23 Range/Units 16:06 16:00 WBC 12.4 H (4.0-10.5) x10^3/uL RBC 5.32 (4.1-5.6) x10^6/uL Hgb 16.3 (12.5-18.0) g/dL Hct 50.0 (42-50) % MCV 94.0 (78-100) fL MCH 30.6 (26-32) pg MCHC 32.6 (32-36) g/dL RDW 13.2 (11.5-14.0) % Plt Count 395 (150-450) x10^3/uL MPV 9.7 (7.5-11.0) fL Gran % 49.8 (36.0-66.0) % Immature Gran % (Auto) 0.5 H (0.00-0.4) % Nucleat RBC Rel Count 0.0 (0.00-0.1) % Eos # (Auto) 0.27 (0-0.5) x10^3/uL Immature Gran # (Auto) 0.06 H (0.00-0.03) x10^3u/L Absolute Lymphs (auto) 4.20 (1.0-4.6) x10^3/uL Absolute Monos (auto) 1.59 H (0.0-1.3) x10^3/uL Absolute Nucleated RBC 0.00 (0.00-0.01) x10^3u/L Lymphocytes % 33.8 (24.0-44.0) % Monocytes % 12.8 H (0.0-12.0) % Eosinophils % 2.2 (0.00-5.0) % Basophils % 0.9 (0.0-0.4) % Absolute Granulocytes 6.21 (1.4-6.9) x10^3/uL Basophils # 0.11 (0-0.4) x10^3/uL Sodium (137-145) mmol/L Potassium (3.5-5.1) mmol/L Chloride (98-107) mmol/L Carbon Dioxide (22-30) mmol/L Anion Gap (5-15) MEQ/L BUN (9-20) mg/dL Creatinine (0.66-1.25) mg/dL Estimated GFR ML/MIN Glucose (74-106) mg/dL Calcium (8.4-10.2) mg/dL Total Bilirubin (0.2-1.3) mg/dL AST (17-59) U/L ALT (0-50) U/L Alkaline Phosphatase (38-126) U/L Troponin I (0.000-0.034) ng/mL Serum Total Protein (6.3-8.2) g/dL Albumin (3.5-5.0) g/dL Urine Color (Yellow) Urine Appearance (Clear) Urine pH (4.6-8.0) Ur Specific Henderson (1.005-1.030) Urine Protein (Negative) Urine Glucose (UA) (Negative) mg/dL Urine Ketones (Negative) Urine Blood (Negative) Urine Nitrite (Negative) Urine Bilirubin (Negative) Urine Urobilinogen (0.2) mg/dL Ur Leukocyte Esterase (Negative) U Hyaline Cast (Auto) (0-2) /LPF Urine Microscopic RBC (0-5) /HPF Urine Microscopic WBC (0-5) /HPF Ur Epithelial Cells (None Seen) /HPF Urine Bacteria (None Seen) /HPF Urine Culture Reflexed (NO) Influenza Type A Ag NEGATIVE (NEGATIVE) Influenza Type B Ag NEGATIVE (NEGATIVE) RSV (PCR) NEGATIVE (NEGATIVE) SARS-CoV-2 (PCR) NEGATIVE (NEGATIVE) - Progress Progress: improved Air Movement: good Progress Note: Patient is 67-year-old male presents to our ED for evaluation of shortness of breath. Patient arrived via EMS. Patient had received a DuoNeb and a dose of Solu-Medrol 125 mg. On physical exam patient was tachypneic. Patient was hypoxic at 92% on room air. Oxygen nasal cannula applied. We will breath sounds were diminished but clear. Physical exam otherwise unremarkable. EKG revealed a normal sinus rhythm. CTA chest negative for PE. Patient has a slight leukocytosis of 12. CBC. CMP reveals a BUN/creatinine ratio greater than 20. Urinalysis reveals a elevated specific gravity. Patient appears to be dehydrated based on laboratory work-up.. COVID test negative. Troponin ne gative. No UTI observed on urinalysis. Blood cultures obtained. Patient is allergic to penicillin. Patient received IV dose of doxycycline Patient reassessed. He feels much better. Patient is not as tachypneic. He remains hypoxic and requires nasal cannula oxygen. Case discussed with Dr. Alan salas at 7:47 PM. excepts admission to observation. Plan of care discussed with patient. Patient agrees to admission to [facility] for further evaluation and treatment. Portions of this note were created with voice recognition technology. There may be grammatical, spelling, punctuation or sound alike errors Complexity of problems addressed is high. Patient was hypoxic tachypneic mild respiratory distress. No critical care time. Patient was hypoxic at 92%. Complex of data reviewed and analyzed is extensive. Test ordered test reviewed. Results were analyzed and clinically correlated with history and physical examination. Management discussed with hospitalist who excepts admission to observation. Risk of complication and or risk of morbidity/mortality of patient management is high. Patient requires hospitalization for further evaluation and treatment. Patient received nebulizer treatment as well as steroids and IV antibiotic therapy to manage his shortness of breath COPD exacerbation and hypoxia. Vital stable. Time spent admit patient approximately 20 minutes. Plan of care established for shared decision making. Patient voices no other complaints or concerns at this time. 01/19/23 19:45 Blood Culture(s) Obtained: Yes Discussed with : Melia Will see patient in: hospital (observation) Counseled pt/family regarding: lab results, diagnosis, rad results - Departure Departure Disposition: Observation Clinical Impression: Emphysema lung, Fatty liver, Shortness of breath, COPD exacerbation, Hypoxia, Leukocytosis, Dehydration Condition: Stable Critical Care Time: No Referrals: STEWART KENDALL MD [Primary Care Provider] - Follow up/PCP as directed Instructions: Chronic Obstructive Pulmonary Disease
[2023-01-19 16:19] LABS: Absolute Neutrophil Ct (ANC) 6.21 x10^3/uL (1.4-6.9); BASOPHIL % 0.9 % (0.0-0.4); Basophil (Absolute #) 0.11 x10^3/uL (0-0.4); Eosinophil % 2.2 % (0.00-5.0); Eosinophil (Absolute #) 0.27 x10^3/uL (0-0.5); Hemoglobin 16.3 g/dL (12.5-18.0); IMMATURE GRAN # 0.06 x10^3u/L (0.00-0.03); IMMATURE GRAN % 0.5 % (0.00-0.4); Lymphocytes % 33.8 % (24.0-44.0); Mean Corpuscular Hemoglobin 30.6 pg (26-32); Mean Corpuscular Hgb Concent. 32.6 g/dL (32-36); Mean Platelet Volume 9.7 fL (7.5-11.0); Monocyte (Absolute #) 1.59 x10^3/uL (0.0-1.3); Monocytes % 12.8 % (0.0-12.0); Neutrophil % 49.8 % (36.0-66.0); Platelet Count 395 x10^3/uL (150-450); Red Blood Count 5.32 x10^6/uL (4.1-5.6); Red Cell Distribution Width 13.2 % (11.5-14.0); White Blood Count 12.4 x10^3/uL (4.0-10.5)
[2023-01-19 16:33] LABS: ALBUMIN 4.2 g/dL (3.5-5.0); ALKALINE PHOSPHATASE 71 U/L (38-126); ANION GAP 15.7 MEQ/L (5-15); BLOOD UREA NITROGEN 30 mg/dL (9-20); CHLORIDE 107 mmol/L (98-107); Calcium 8.7 mg/dL (8.4-10.2); Carbon Dioxide 20 mmol/L (22-30); Creatinine 1 0.99 mg/dL (0.66-1.25); EST GLOMERULAR FILTRATION RATE > 60.0 ML/MIN; Glucose 129 mg/dL (74-106); Potassium 4.3 mmol/L (3.5-5.1); SGOT/AST 30 U/L (17-59); SGPT/ALT 27 U/L (0-50); SODIUM 138 mmol/L (137-145); Total Protein 7.3 g/dL (6.3-8.2)
[2023-01-19 17:07] LABS: INFLUENZA A NEGATIVE (NEGATIVE); INFLUENZA B NEGATIVE (NEGATIVE); RESPIRATORY SYNCTIAL VIRUS NEGATIVE (NEGATIVE); SARS-CoV-2 Xpert Express NEGATIVE (NEGATIVE)
[2023-01-19 18:15] LABS: Appearance Clear (Clear); Bacteria None Seen /HPF (None Seen); Bilirubin Negative (Negative); Blood Negative (Negative); Epithelial Cells None Seen /HPF (None Seen); Glucose, Urine Negative (Negative); Hyaline Casts NONE SEEN /LPF (0-2); Ketones Negative (Negative); Leukocyte Esterase Negative (Negative); Nitrite Negative (Negative); Protein,Urine Dip Negative (Negative); RBC 0-2 /HPF (0-5); Specific Gravity >=1.030 (1.005-1.030); WBC 0-2 /HPF (0-5)
[2023-01-19 18:17] LABS: ADD URINE CULTURE? NO (NO)
[2023-01-19] MEDS ORDERED: Sodium Chloride 0.9% 1000 ML 1,000 ML IV SCH (20:00)
[2023-01-19 20:10] LABS: Slide Review 1 YES
[2023-01-19 20:28] LABS: Amphetamine,Urine POSITIVE (NEGATIVE); Barbiturate,Urine NEGATIVE (NEGATIVE); Benzodiazepine,Urine NEGATIVE (NEGATIVE); Cocaine,Urine NEGATIVE (NEGATIVE); Methadone,Urine NEGATIVE (NEGATIVE); Opiate,Urine NEGATIVE (NEGATIVE); PCP,Urine NEGATIVE (NEGATIVE); THC,Urine NEGATIVE (NEGATIVE)
[2023-01-19] MEDS ORDERED: VIBRAMYCIN 100 MG IV ONE (20:29)
[2023-01-19] MEDS ORDERED: D5w 100ML Mini Bag 100 ML 100 ML IV ONE (20:30)
[2023-01-19] MEDS ORDERED: VIBRAMYCIN 100 MG*** 100 MG in Dextrose 5%/Water IV Soln. 100ML PLUS BAG 100 ML IV SCH (22:00)
[2023-01-19] MEDS ORDERED: TYLENOL 325 MG PO PRN (22:06)
[2023-01-19] MEDS ORDERED: DUONEB 0.5-3 MG/3 ml Neb IH PRN (22:09)
[2023-01-19] MEDS ORDERED: AFRIN NASAL SPRAY NS ONE (22:13)
--- NOTE | 2023-01-19 22:16 | PCM.HP ---
History of Present Illness - Chief Complaint Chief Complaint: "I can't breathe through my nose" Date: 01/19/23 History of Present Illness: 67 y/o M with h/o COPD and HTN, who presents with nasal congestion and dyspnea. Patient has diagnosis of COPD, with 10 pack-year smoking history, quit 5 years ago, not on oxygen, but uses rescue inhalers. He noted onset of dyspnea about one month ago, making it hard to do his daily activities, even put on his socks, without dyspnea. Denies chest pain, orthopnea, PND, or leg edema. He took his inhalers with intermittent relief. However, never sought futher medical attention. However, today had onset of nasal congestion, giving him more subjective dyspnea, so he called EMS. Reportedly more SOB with EMS, and he was given SoluMedrol and nebs with EMS. He thinks that helped partially, but he is most concerned about the nasal cannula making his nasal congestion worse. He denies fevers, chills, cough, or sick contacts. On room air, his SpO2 is only 88%, improved to 93% on 2L. - Review of Systems Constitutional: No Fever, No Chills, No Fatigue, No Weakness Eyes: No Eye Pain, No Itchy Ears, Nose, & Throat: Nose Congestion, No Hearing Changes, No Throat Pain, No Painful Swallowing Respiratory: Short Of Breath, No Cough, No Orthopnea, No Wheezing Cardiac: No Chest Pain, No Edema Abdominal/Gastrointestinal: No Abdominal Pain, No Nausea, No Vomiting, No Diarrhea Genitourinary Symptoms: No Dysuria All Other Systems: Reviewed and Negative Medications & Allergies Home Medications: Home Medication List Ibuprofen 800 mg PO DAILY PRN 07/16/18 [History Confirmed 01/19/23] Atorvastatin Calcium [Lipitor 20MG Tablet] 20 mg PO DAILY 06/14/22 [History Confirmed 01/19/23] Lisinopril 10 mg [Zestril 10 MG] 1 tab PO DAILY 01/19/23 [History Confirmed 01/19/23] Metoprolol Succinate 50 mg [Toprol Xl 50 MG] 1 tab PO DAILY 01/19/23 [History Confirmed 01/19/23] Allergies/Adverse Reactions: Allergies Allergy/AdvReac Type Severity Reaction Status Date / Time Penicillins Allergy Verified 01/19/23 20:43 - Past Medical History Past Medical History: Yes Neurological History: No Pertinent History ENT History: No Pertinent History Cardiac History: Hypertension Respiratory History: Asthma, COPD Endocrine Medical History: No Pertinent History Musculoskelatal History: Fractures GI Medical History: No Pertinent History History: No Pertinent History Pyscho-Social History: No Pertinent History Male Reproductive Disorders: No Pertinent History Comment: pt is a poor historian, and unsure. Completed to best of ability. - Past Surgical History Past Surgical History: Yes Neuro Surgical History: No Pertinent History Cardiac History: No Pertinent History Respiratory Surgery: No Pertinent History GI Surgical History: No Pertinent History Genitourinary Surgical Hx: No Pertinent History Musculskeletal Surgical Hx: No Pertinent History Male Surgical History: No Pertinent History Other Surgical History: SPLEEN REMOVED-several years ago - Social History Smoking Status: Former smoker How long have you smoked: YRS Exposure to second hand smoke: Yes Alcohol: Rarely Drug Use: none Significant Family History: no pertinent family hx - Physical Exam Vital Signs: Vital Signs - 24 hr Temp Pulse Resp BP BP Pulse Ox 01/19/23 20:16 97.1 F 82 22 155/98 95 01/19/23 19:51 96 01/19/23 19:00 88 18 140/94 94 L 01/19/23 18:10 40 L 22 92 L 01/19/23 18:02 88 21 94 L 01/19/23 17:32 78 27 H 143/120 92 L 01/19/23 17:11 87 25 H 127/102 94 L 01/19/23 16:31 103 H 25 H 114/86 95 01/19/23 16:16 85 23 114/66 93 L 01/19/23 15:43 96 01/19/23 15:38 86 26 H 143/83 95 01/19/23 15:35 97.6 F 85 23 143/83 93 L General Appearance: no apparent distress Neurologic Exam: alert, oriented x 3, cooperative Eye Exam: eyes nml inspection Respiratory Exam: lungs clear, other (on 2L oxygen by [place]), No respiratory distress, No diminished breath sounds, No accessory muscle use, No prolonged expirations, No rhonchi, No wheezing Cardiovascular Exam: regular rate/rhythm, normal heart sounds, No edema Gastrointestinal/Abdomen Exam: normal bowel sounds, No tenderness, No distention Results - Labs Lab/Micro Results: Lab Results-Last 24 Hours 10/24/23 10/24/23 10/24/23 Range/Units 16:00 16:00 16:06 WBC 12.4 H (4.0-10.5) x10^3/uL RBC 5.32 (4.1-5.6) x10^6/uL Hgb 16.3 (12.5-18.0) g/dL Hct 50.0 (42-50) % MCV 94.0 (78-100) fL MCH 30.6 (26-32) pg MCHC 32.6 (32-36) g/dL RDW 13.2 (11.5-14.0) % Plt Count 395 (150-450) x10^3/uL MPV 9.7 (7.5-11.0) fL Gran % 49.8 (36.0-66.0) % Immature Gran % (Auto) 0.5 H (0.00-0.4) % Nucleat RBC Rel Count 0.0 (0.00-0.1) % Eos # (Auto) 0.27 (0-0.5) x10^3/uL Immature Gran # (Auto) 0.06 H (0.00-0.03) x10^3u/L Absolute Lymphs (auto) 4.20 (1.0-4.6) x10^3/uL Absolute Monos (auto) 1.59 H (0.0-1.3) x10^3/uL Absolute Nucleated RBC 0.00 (0.00-0.01) x10^3u/L Lymphocytes % 33.8 (24.0-44.0) % Monocytes % 12.8 H (0.0-12.0) % Eosinophils % 2.2 (0.00-5.0) % Basophils % 0.9 (0.0-0.4) % Absolute Granulocytes 6.21 (1.4-6.9) x10^3/uL Basophils # 0.11 (0-0.4) x10^3/uL Sodium (137-145) mmol/L Potassium (3.5-5.1) mmol/L Chloride (98-107) mmol/L Carbon Dioxide (22-30) mmol/L Anion Gap (5-15) MEQ/L BUN (9-20) mg/dL Creatinine (0.66-1.25) mg/dL Estimated GFR ML/MIN Glucose (74-106) mg/dL Calcium (8.4-10.2) mg/dL Total Bilirubin (0.2-1.3) mg/dL AST (17-59) U/L ALT (0-50) U/L Alkaline Phosphatase (38-126) U/L Troponin I (0.000-0.034) ng/mL Serum Total Protein (6.3-8.2) g/dL Albumin (3.5-5.0) g/dL Urine Color (Yellow) Urine Appearance (Clear) Urine pH (4.6-8.0) Ur Specific [place] (1.005-1.030) Urine Protein (Negative) Urine Glucose (UA) (Negative) mg/dL Urine Ketones (Negative) Urine Blood (Negative) Urine Nitrite (Negative) Urine Bilirubin (Negative) Urine Urobilinogen (0.2) mg/dL Ur Leukocyte Esterase (Negative) U Hyaline Cast (Auto) (0-2) /LPF Urine Microscopic RBC (0-5) /HPF Urine Microscopic WBC (0-5) /HPF Ur Epithelial Cells (None Seen) /HPF Urine Bacteria (None Seen) /HPF Urine Culture Reflexed (NO) Urine Opiates Level NEGATIVE (NEGATIVE) Ur Methadone NEGATIVE (NEGATIVE) Urine Barbiturates NEGATIVE (NEGATIVE) Ur Phencyclidine (PCP) NEGATIVE (NEGATIVE) Urine Amphetamine POSITIVE (NEGATIVE) U Benzodiazepine Level NEGATIVE (NEGATIVE) Urine Cocaine NEGATIVE (NEGATIVE) Urine Marijuana (THC) NEGATIVE (NEGATIVE) Influenza Type A Ag NEGATIVE (NEGATIVE) Influenza Type B Ag NEGATIVE (NEGATIVE) RSV (PCR) NEGATIVE (NEGATIVE) SARS-CoV-2 (PCR) NEGATIVE (NEGATIVE) Slides for Path Review YES 01/19/23 01/19/23 01/19/23 Range/Units 16:06 16:06 17:51 WBC (4.0-10.5) x10^3/uL RBC (4.1-5.6) x10^6/uL Hgb (12.5-18.0) g/dL Hct (42-50) % MCV (78-100) fL MCH (26-32) pg MCHC (32-36) g/dL RDW (11.5-14.0) % Plt Count (150-450) x10^3/uL MPV (7.5-11.0) fL Gran % (36.0-66.0) % Immature Gran % (Auto) (0.00-0.4) % Nucleat RBC Rel Count (0.00-0.1) % Eos # (Auto) (0-0.5) x10^3/uL Immature Gran # (Auto) (0.00-0.03) x10^3u/L Absolute Lymphs (auto) (1.0-4.6) x10^3/uL Absolute Monos (auto) (0.0-1.3) x10^3/uL Absolute Nucleated RBC (0.00-0.01) x10^3u/L Lymphocytes % (24.0-44.0) % Monocytes % (0.0-12.0) % Eosinophils % (0.00-5.0) % Basophils % (0.0-0.4) % Absolute Granulocytes (1.4-6.9) x10^3/uL Basophils # (0-0.4) x10^3/uL Sodium 138 (137-145) mmol/L Potassium 4.3 (3.5-5.1) mmol/L Chloride 107 (98-107) mmol/L Carbon Dioxide 20 L (22-30) mmol/L Anion Gap 15.7 H (5-15) MEQ/L BUN 30 H (9-20) mg/dL Creatinine 0.99 (0.66-1.25) mg/dL Estimated GFR > 60.0 ML/MIN Glucose 129 H (74-106) mg/dL Calcium 8.7 (8.4-10.2) mg/dL Total Bilirubin 0.70 (0.2-1.3) mg/dL AST 30 (17-59) U/L ALT 27 (0-50) U/L Alkaline Phosphatase 71 (38-126) U/L Troponin I < 0.012 (0.000-0.034) ng/mL Serum Total Protein 7.3 (6.3-8.2) g/dL Albumin 4.2 (3.5-5.0) g/dL Urine Color Yellow (Yellow) Urine Appearance Clear (Clear) Urine pH 7.0 (4.6-8.0) Ur Specific [place] >=1.030 A (1.005-1.030) Urine Protein Negative (Negative) Urine Glucose (UA) Negative (Negative) mg/dL Urine Ketones Negative (Negative) Urine Blood Negative (Negative) Urine Nitrite Negative (Negative) Urine Bilirubin Negative (Negative) Urine Urobilinogen 1.0 A (0.2) mg/dL Ur Leukocyte Esterase Negative (Negative) U Hyaline Cast (Auto) NONE SEEN (0-2) /LPF Urine Microscopic RBC 0-2 (0-5) /HPF Urine Microscopic WBC 0-2 (0-5) /HPF Ur Epithelial Cells None Seen (None Seen) /HPF Urine Bacteria None Seen (None Seen) /HPF Urine Culture Reflexed NO (NO) Urine Opiates Level (NEGATIVE) Ur Methadone (NEGATIVE) Urine Barbiturates (NEGATIVE) Ur Phencyclidine (PCP) (NEGATIVE) Urine Amphetamine (NEGATIVE) U Benzodiazepine Level (NEGATIVE) Urine Cocaine (NEGATIVE) Urine Marijuana (THC) (NEGATIVE) Influenza Type A Ag (NEGATIVE) Influenza Type B Ag (NEGATIVE) RSV (PCR) (NEGATIVE) SARS-CoV-2 (PCR) (NEGATIVE) Slides for Path Review 01/19/23 Range/Units 19:38 WBC (4.0-10.5) x10^3/uL RBC (4.1-5.6) x10^6/uL Hgb (12.5-18.0) g/dL Hct (42-50) % MCV (78-100) fL MCH (26-32) pg MCHC (32-36) g/dL RDW (11.5-14.0) % Plt Count (150-450) x10^3/uL MPV (7.5-11.0) fL Gran % (36.0-66.0) % Immature Gran % (Auto) (0.00-0.4) % Nucleat RBC Rel Count (0.00-0.1) % Eos # (Auto) (0-0.5) x10^3/uL Immature Gran # (Auto) (0.00-0.03) x10^3u/L Absolute Lymphs (auto) (1.0-4.6) x10^3/uL Absolute Monos (auto) (0.0-1.3) x10^3/uL Absolute Nucleated RBC (0.00-0.01) x10^3u/L Lymphocytes % (24.0-44.0) % Monocytes % (0.0-12.0) % Eosinophils % (0.00-5.0) % Basophils % (0.0-0.4) % Absolute Granulocytes (1.4-6.9) x10^3/uL Basophils # (0-0.4) x10^3/uL Sodium (137-145) mmol/L Potassium (3.5-5.1) mmol/L Chloride (98-107) mmol/L Carbon Dioxide (22-30) mmol/L Anion Gap (5-15) MEQ/L BUN (9-20) mg/dL Creatinine (0.66-1.25) mg/dL Estimated GFR ML/MIN Glucose (74-106) mg/dL Calcium (8.4-10.2) mg/dL Total Bilirubin (0.2-1.3) mg/dL AST (17-59) U/L ALT (0-50) U/L Alkaline Phosphatase (38-126) U/L Troponin I < 0.012 (0.000-0.034) ng/mL Serum Total Protein (6.3-8.2) g/dL Albumin (3.5-5.0) g/dL Urine Color (Yellow) Urine Appearance (Clear) Urine pH (4.6-8.0) Ur Specific [place] (1.005-1.030) Urine Protein (Negative) Urine Glucose (UA) (Negative) mg/dL Urine Ketones (Negative) Urine Blood (Negative) Urine Nitrite (Negative) Urine Bilirubin (Negative) Urine Urobilinogen (0.2) mg/dL Ur Leukocyte Esterase (Negative) U Hyaline Cast (Auto) (0-2) /LPF Urine Microscopic RBC (0-5) /HPF Urine Microscopic WBC (0-5) /HPF Ur Epithelial Cells (None Seen) /HPF Urine Bacteria (None Seen) /HPF Urine Culture Reflexed (NO) Urine Opiates Level (NEGATIVE) Ur Methadone (NEGATIVE) Urine Barbiturates (NEGATIVE) Ur Phencyclidine (PCP) (NEGATIVE) Urine Amphetamine (NEGATIVE) U Benzodiazepine Level (NEGATIVE) Urine Cocaine (NEGATIVE) Urine Marijuana (THC) (NEGATIVE) Influenza Type A Ag (NEGATIVE) Influenza Type B Ag (NEGATIVE) RSV (PCR) (NEGATIVE) SARS-CoV-2 (PCR) (NEGATIVE) Slides for Path Review - Radiology Impressions Radiology Exams & Impressions: Radiology Procedures Category Date Time Status CHEST WITH CONTRAST [CT] Stat Exams 01/19/23 15:[address] Chest personal read - emphysematous changes, most notable in bilateral upper lungs. No infiltrate, no congestion. - Other Procedures and Tests Respiratory Therapy 01/19/23 20:40 RT Screen per Nursing Assess ONCE 01/19/23 22:10 Oxygen Nasal Cannula 2 lpm Assessment/Plan (1) COPD exacerbation Current Visit: Yes Status: Acute Assessment & Plan: 67 y/o M with h/o COPD and HTN, here with COPD exacergation. ## COPD exacerbation, acute hypoxic respiratory failure - history c/w COPD exacerbation, requiring 2L oxygen. No sputum production or worsening cough, so does not meet GOLD criteria for antibiotics, nor does he have evidence of pneumonia on CT. Given SoluMedrol, nebs in ED. Still on 2L oxygen, but moving air well on exam. - start prednisone 40 mg daily - PRN DuoNebs q4h - d/c doxycycline - PRN Afrin for nasal congestion ## Hypertension - BP controlled - continue home Lisinopril 10, Toprol XL 50 Code Status: Full PPx: Lovenox 40 Diet: Regular Dispo: Expect home in next 24-48 hours if able to wean off oxygen, ambulate Code(s): J44.1 - CHRONIC OBSTRUCTIVE PULMONARY DISEASE W (ACUTE) EXACERBATION Telemedicine Encounter - Telemedicine Encounter Telemedicine Encounter: The entirety of this encounter was performed via Telemedicine"
[2023-01-20 05:44] LABS: Hemoglobin 16.2 g/dL (12.5-18.0); Mean Cell Volume 91.4 fL (78-100); Mean Corpuscular Hemoglobin 30.2 pg (26-32); Mean Corpuscular Hgb Concent. 33.1 g/dL (32-36); Platelet Count 440 x10^3/uL (150-450); Red Blood Count 5.36 x10^6/uL (4.1-5.6); White Blood Count 13.6 x10^3/uL (4.0-10.5)
[2023-01-20 05:56] LABS: BLOOD UREA NITROGEN 24 mg/dL (9-20); CHLORIDE 109 mmol/L (98-107); Calcium 8.8 mg/dL (8.4-10.2); Carbon Dioxide 19 mmol/L (22-30); Creatinine 1 0.89 mg/dL (0.66-1.25); EST GLOMERULAR FILTRATION RATE > 60.0 ML/MIN; Glucose 171 mg/dL (74-106); Potassium 4.3 mmol/L (3.5-5.1); SODIUM 138 mmol/L (137-145)
[2023-01-20] MEDS ORDERED: AFRIN NASAL SPRAY NS PRN (07:05)
[2023-01-20 08:22] VITALS: TEMP 97.1
--- NOTE | 2023-01-20 08:46 | XRAY ---
Indication: Chest pain short of breath. Multiple contiguous axial images obtained through the chest using 80 cc Isovue 370 contrast and PE protocol. Comparison: June 14, 2022 Good opacification of the pulmonary arteries to include the lobar and segmental branches. No pulmonary embolus. Heart not enlarged. Aorta remains mildly arteriosclerotic without aneurysm/dissection. Stable right hilar calcified node. No pathologic mediastinal/hilar lymphadenopathy. Lungs again demonstrates moderate diffuse pulmonary emphysema, scattered fibrosis/scarring, and small right mid lung calcified granuloma. No new pulmonary mass/nodule, infiltrate, or effusion. Bony thorax intact again with moderate degenerative changes throughout the spine and old left rib fractures. 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 Impression: 1. Continued negative pulmonary embolus. No new/acute cardiopulmonary abnormalities. 2. Again chronic findings including pulmonary emphysema, scattered fibrosis/scarring, arteriosclerotic disease, chronic bony findings, and old granulomatous disease.
[2023-01-20] MEDS ORDERED: Zestril 10 MG PO SCH (10:00)
[2023-01-20] MEDS ORDERED: ENOXAPARIN SODIUM SQ SCH (10:00)
[2023-01-20] MEDS ORDERED: DELTASONE 20 MG PO SCH (10:00)
[2023-01-20] MEDS ORDERED: Toprol Xl 50 MG PO SCH (10:00)
[2023-01-20 10:53] VITALS: O2SAT 92
--- NOTE | 2023-01-20 11:06 | PCM.DS ---
Discharge Summary Date of Admission: 01/19/23 20:04 Date of Discharge: 01/20/23 Admitting Physician: LETICIA DOMINGUEZ MD Primary Care Provider: STEWART KENDALL MD Allergies Allergies Penicillins Allergy (Verified 01/19/23 20:43) Hospital Summary - Hospital Course Hospital Course: 01/19/23 67 y/o M with h/o COPD and HTN, who presents with nasal congestion and dyspnea. Patient has diagnosis of COPD, with 10 pack-year smoking history, quit 5 years ago, not on oxygen, but uses rescue inhalers. He noted onset of dyspnea about one month ago, making it hard to do his daily activities, even put on his socks, without dyspnea. Denies chest pain, orthopnea, PND, or leg edema. He took his inhalers with intermittent relief. However, never sought futher medical attention. However, today had onset of nasal congestion, giving him more subjective dyspnea, so he called EMS. Reportedly more SOB with EMS, and he was given SoluMedrol and nebs with EMS. He thinks that helped partially, but he is most concerned about the nasal cannula making his nasal congestion worse. He denies fevers, chills, cough, or sick contacts. On room air, his SpO2 is only 88%, improved to 93% on 2L. 01/20/23 Pt sitting up in chair in room. He is feeling better and wants to go home. Lungs sounds are clear and has no SOB. He is not requiring Oxygen. He reports he wears oxygen at night only and this is all set up at home. Asked about + amphetamines in UDS and he denies use. He denies any further concerns at this time. - Vitals & Intake/Output Vital Signs: Vital Signs Temperature 97.1 F 01/20/23 08:00 Pulse Rate 86 01/20/23 08:00 Respiratory Rate 18 01/20/23 08:00 Blood Pressure 122/74 01/20/23 08:00 O2 Sat by Pulse Oximetry 92 L 01/20/23 09:00 Intake & Output: Intake & Output 01/17/23 01/18/23 01/19/23 01/20/23 11:59 11:59 11:59 11:59 Intake Total 560 Output Total 1050 Balance -490 Weight 96.3 kg - Lab Result Diagrams: 01/20/23 04:28 01/20/23 04:28 Lab Results-Last 24 Hrs: Lab Results-Last 24 Hours 01/19/23 01/19/23 01/19/23 Range/Units 16:00 16:00 16:06 WBC 12.4 H (4.0-10.5) x10^3/uL RBC 5.32 (4.1-5.6) x10^6/uL Hgb 16.3 (12.5-18.0) g/dL Hct 50.0 (42-50) % MCV 94.0 (78-100) fL MCH 30.6 (26-32) pg MCHC 32.6 (32-36) g/dL RDW 13.2 (11.5-14.0) % Plt Count 395 (150-450) x10^3/uL MPV 9.7 (7.5-11.0) fL Gran % 49.8 (36.0-66.0) % Immature Gran % (Auto) 0.5 H (0.00-0.4) % Nucleat RBC Rel Count 0.0 (0.00-0.1) % Eos # (Auto) 0.27 (0-0.5) x10^3/uL Immature Gran # (Auto) 0.06 H (0.00-0.03) x10^3u/L Absolute Lymphs (auto) 4.20 (1.0-4.6) x10^3/uL Absolute Monos (auto) 1.59 H (0.0-1.3) x10^3/uL Absolute Nucleated RBC 0.00 (0.00-0.01) x10^3u/L Lymphocytes % 33.8 (24.0-44.0) % Monocytes % 12.8 H (0.0-12.0) % Eosinophils % 2.2 (0.00-5.0) % Basophils % 0.9 (0.0-0.4) % Absolute Granulocytes 6.21 (1.4-6.9) x10^3/uL Basophils # 0.11 (0-0.4) x10^3/uL Sodium (137-145) mmol/L Potassium (3.5-5.1) mmol/L Chloride (98-107) mmol/L Carbon Dioxide (22-30) mmol/L Anion Gap (5-15) MEQ/L BUN (9-20) mg/dL Creatinine (0.66-1.25) mg/dL Estimated GFR ML/MIN Glucose (74-106) mg/dL Calcium (8.4-10.2) mg/dL Total Bilirubin (0.2-1.3) mg/dL AST (17-59) U/L ALT (0-50) U/L Alkaline Phosphatase (38-126) U/L Troponin I (0.000-0.034) ng/mL Serum Total Protein (6.3-8.2) g/dL Albumin (3.5-5.0) g/dL Urine Color (Yellow) Urine Appearance (Clear) Urine pH (4.6-8.0) Ur Specific [place] (1.005-1.030) Urine Protein (Negative) Urine Glucose (UA) (Negative) mg/dL Urine Ketones (Negative) Urine Blood (Negative) Urine Nitrite (Negative) Urine Bilirubin (Negative) Urine Urobilinogen (0.2) mg/dL Ur Leukocyte Esterase (Negative) U Hyaline Cast (Auto) (0-2) /LPF Urine Microscopic RBC (0-5) /HPF Urine Microscopic WBC (0-5) /HPF Ur Epithelial Cells (None Seen) /HPF Urine Bacteria (None Seen) /HPF Urine Culture Reflexed (NO) Urine Opiates Level NEGATIVE (NEGATIVE) Ur Methadone NEGATIVE (NEGATIVE) Urine Barbiturates NEGATIVE (NEGATIVE) Ur Phencyclidine (PCP) NEGATIVE (NEGATIVE) Urine Amphetamine POSITIVE (NEGATIVE) U Benzodiazepine Level NEGATIVE (NEGATIVE) Urine Cocaine NEGATIVE (NEGATIVE) Urine Marijuana (THC) NEGATIVE (NEGATIVE) Influenza Type A Ag NEGATIVE (NEGATIVE) Influenza Type B Ag NEGATIVE (NEGATIVE) RSV (PCR) NEGATIVE (NEGATIVE) SARS-CoV-2 (PCR) NEGATIVE (NEGATIVE) Slides for Path Review YES 01/19/23 01/19/23 01/19/23 Range/Units 16:06 16:06 17:51 WBC (4.0-10.5) x10^3/uL RBC (4.1-5.6) x10^6/uL Hgb (12.5-18.0) g/dL Hct (42-50) % MCV (78-100) fL MCH (26-32) pg MCHC (32-36) g/dL RDW (11.5-14.0) % Plt Count (150-450) x10^3/uL MPV (7.5-11.0) fL Gran % (36.0-66.0) % Immature Gran % (Auto) (0.00-0.4) % Nucleat RBC Rel Count (0.00-0.1) % Eos # (Auto) (0-0.5) x10^3/uL Immature Gran # (Auto) (0.00-0.03) x10^3u/L Absolute Lymphs (auto) (1.0-4.6) x10^3/uL Absolute Monos (auto) (0.0-1.3) x10^3/uL Absolute Nucleated RBC (0.00-0.01) x10^3u/L Lymphocytes % (24.0-44.0) % Monocytes % (0.0-12.0) % Eosinophils % (0.00-5.0) % Basophils % (0.0-0.4) % Absolute Granulocytes (1.4-6.9) x10^3/uL Basophils # (0-0.4) x10^3/uL Sodium 138 (137-145) mmol/L Potassium 4.3 (3.5-5.1) mmol/L Chloride 107 (98-107) mmol/L Carbon Dioxide 20 L (22-30) mmol/L Anion Gap 15.7 H (5-15) MEQ/L BUN 30 H (9-20) mg/dL Creatinine 0.99 (0.66-1.25) mg/dL Estimated GFR > 60.0 ML/MIN Glucose 129 H (74-106) mg/dL Calcium 8.7 (8.4-10.2) mg/dL Total Bilirubin 0.70 (0.2-1.3) mg/dL AST 30 (17-59) U/L ALT 27 (0-50) U/L Alkaline Phosphatase 71 (38-126) U/L Troponin I < 0.012 (0.000-0.034) ng/mL Serum Total Protein 7.3 (6.3-8.2) g/dL Albumin 4.2 (3.5-5.0) g/dL Urine Color Yellow (Yellow) Urine Appearance Clear (Clear) Urine pH 7.0 (4.6-8.0) Ur Specific [place] >=1.030 A (1.005-1.030) Urine Protein Negative (Negative) Urine Glucose (UA) Negative (Negative) mg/dL Urine Ketones Negative (Negative) Urine Blood Negative (Negative) Urine Nitrite Negative (Negative) Urine Bilirubin Negative (Negative) Urine Urobilinogen 1.0 A (0.2) mg/dL Ur Leukocyte Esterase Negative (Negative) U Hyaline Cast (Auto) NONE SEEN (0-2) /LPF Urine Microscopic RBC 0-2 (0-5) /HPF Urine Microscopic WBC 0-2 (0-5) /HPF Ur Epithelial Cells None Seen (None Seen) /HPF Urine Bacteria None Seen (None Seen) /HPF Urine Culture Reflexed NO (NO) Urine Opiates Level (NEGATIVE) Ur Methadone (NEGATIVE) Urine Barbiturates (NEGATIVE) Ur Phencyclidine (PCP) (NEGATIVE) Urine Amphetamine (NEGATIVE) U Benzodiazepine Level (NEGATIVE) Urine Cocaine (NEGATIVE) Urine Marijuana (THC) (NEGATIVE) Influenza Type A Ag (NEGATIVE) Influenza Type B Ag (NEGATIVE) RSV (PCR) (NEGATIVE) SARS-CoV-2 (PCR) (NEGATIVE) Slides for Path Review 01/19/23 01/20/23 01/20/23 Range/Units 19:38 04:28 04:28 WBC 13.6 H (4.0-10.5) x10^3/uL RBC 5.36 (4.1-5.6) x10^6/uL Hgb 16.2 (12.5-18.0) g/dL Hct 49.0 (42-50) % MCV 91.4 (78-100) fL MCH 30.2 (26-32) pg MCHC 33.1 (32-36) g/dL RDW 13.0 (11.5-14.0) % Plt Count 440 (150-450) x10^3/uL MPV 10.0 (7.5-11.0) fL Gran % (36.0-66.0) % Immature Gran % (Auto) (0.00-0.4) % Nucleat RBC Rel Count (0.00-0.1) % Eos # (Auto) (0-0.5) x10^3/uL Immature Gran # (Auto) (0.00-0.03) x10^3u/L Absolute Lymphs (auto) (1.0-4.6) x10^3/uL Absolute Monos (auto) (0.0-1.3) x10^3/uL Absolute Nucleated RBC (0.00-0.01) x10^3u/L Lymphocytes % (24.0-44.0) % Monocytes % (0.0-12.0) % Eosinophils % (0.00-5.0) % Basophils % (0.0-0.4) % Absolute Granulocytes (1.4-6.9) x10^3/uL Basophils # (0-0.4) x10^3/uL Sodium 138 (137-145) mmol/L Potassium 4.3 (3.5-5.1) mmol/L Chloride 109 H (98-107) mmol/L Carbon Dioxide 19 L (22-30) mmol/L Anion Gap 14.0 (5-15) MEQ/L BUN 24 H (9-20) mg/dL Creatinine 0.89 (0.66-1.25) mg/dL Estimated GFR > 60.0 ML/MIN Glucose 171 H (74-106) mg/dL Calcium 8.8 (8.4-10.2) mg/dL Total Bilirubin (0.2-1.3) mg/dL AST (17-59) U/L ALT (0-50) U/L Alkaline Phosphatase (38-126) U/L Troponin I < 0.012 (0.000-0.034) ng/mL Serum Total Protein (6.3-8.2) g/dL Albumin (3.5-5.0) g/dL Urine Color (Yellow) Urine Appearance (Clear) Urine pH (4.6-8.0) Ur Specific [place] (1.005-1.030) Urine Protein (Negative) Urine Glucose (UA) (Negative) mg/dL Urine Ketones (Negative) Urine Blood (Negative) Urine Nitrite (Negative) Urine Bilirubin (Negative) Urine Urobilinogen (0.2) mg/dL Ur Leukocyte Esterase (Negative) U Hyaline Cast (Auto) (0-2) /LPF Urine Microscopic RBC (0-5) /HPF Urine Microscopic WBC (0-5) /HPF Ur Epithelial Cells (None Seen) /HPF Urine Bacteria (None Seen) /HPF Urine Culture Reflexed (NO) Urine Opiates Level (NEGATIVE) Ur Methadone (NEGATIVE) Urine Barbiturates (NEGATIVE) Ur Phencyclidine (PCP) (NEGATIVE) Urine Amphetamine (NEGATIVE) U Benzodiazepine Level (NEGATIVE) Urine Cocaine (NEGATIVE) Urine Marijuana (THC) (NEGATIVE) Influenza Type A Ag (NEGATIVE) Influenza Type B Ag (NEGATIVE) RSV (PCR) (NEGATIVE) SARS-CoV-2 (PCR) (NEGATIVE) Slides for Path Review - Radiology Exams Ordered Rad Exams-Entire Visit: Radiology Procedures Category Date Time Status CHEST WITH CONTRAST [CT] Stat Exams 01/19/23 15:44 Completed - Procedures and Test Procedures and Tests throughout Hospitalization: Therapy Orders & Screens 01/19/23 20:40 RT Screen per Nursing Assess ONCE Comment: Protocol Order Physician Instructions: Greater than 3 points order RT Admission Screen Reason For Exam: Triggered on Admission Diagnosis: COPD exac, hypoxia Diagnosis: COPD exac, hypoxia Pneumonia: No Home O2: Yes Asthma: Yes CHF: No Home CPAP/BIPAP: No Home Nebs/MDI: No Total Points: 9 01/19/23 22:10 Oxygen Nasal Cannula 2 lpm Comment: Diagnosis: COPD exac, hypoxia 01/19/23 22:32 Respiratory Therapy Assessment DAILY Comment: Diagnosis: "I can't breathe through my nose" Discharge Exam General Appearance: no apparent distress, alert Neurologic Exam: alert, oriented x 3, cooperative, normal mood/affect, nml cerebellar function, sensation nml, No motor deficits Eye Exam: PERRL, EOMI, eyes nml inspection Ears, Nose, Throat Exam: normal ENT inspection, pharynx normal, moist mucous membranes Neck Exam: normal inspection, non-tender, supple, full range of motion Respiratory Exam: normal breath sounds, lungs clear, No respiratory distress Cardiovascular Exam: regular rate/rhythm, normal heart sounds Gastrointestinal/Abdomen Exam: soft, No tenderness, No mass Male Genitalia Exam: deferred Rectal Exam: deferred Back Exam: normal inspection, normal range of motion, No CVA tenderness, No vertebral tenderness Extremity Exam: normal inspection, normal range of motion Skin Exam: normal color, warm, dry Final Diagnosis/Problem List - Final Discharge Diagnosis/Problem (1) COPD exacerbation Current Visit: Yes Status: Acute Assessment & Plan: - start prednisone 40 mg daily - PRN DuoNebs q4h - d/c doxycycline - PRN Afrin for nasal congestion 10/25 - D/c with steroids and antibiotics - Continue oxygen at night PRN Code(s): J44.1 - CHRONIC OBSTRUCTIVE PULMONARY DISEASE W (ACUTE) EXACERBATION (2) Shortness of breath Current Visit: Yes Status: Acute Assessment & Plan: - resolved Code(s): R06.02 - SHORTNESS OF BREATH (3) Amphetamine use Current Visit: Yes Status: Acute Assessment & Plan: - as seen in UDS - Denies use Code(s): F15.90 - OTHER STIMULANT USE, UNSPECIFIED, UNCOMPLICATED (4) Hypertension Current Visit: No Status: Chronic Assessment & Plan: - continue home Lisinopril 10, Toprol XL 50 - BP stable Code(s): I10 - ESSENTIAL (PRIMARY) HYPERTENSION - Discharge Discharge Date: 01/20/23 Disposition: Home, Self-Care Condition: Stable Prescriptions: New Prednisone 20 mg [Deltasone 20 mg] 40 mg PO DAILY 5 Days #10 tablet Azithromycin [Azithromycin 250 mg Pack] 250 mg PO UD #6 tablet Continue Ibuprofen 800 mg PO DAILY PRN PRN Reason: Pain Atorvastatin Calcium [Lipitor 20MG Tablet] 20 mg PO DAILY Lisinopril 10 mg [Zestril 10 MG] 1 tab PO DAILY Metoprolol Succinate 50 mg [Toprol Xl 50 MG] 1 tab PO DAILY Instructions: Exacerbation of COPD (DC) Forms: Discharge Instructions
[2023-01-20 12:11] VITALS: BP 145/81; PULSE 55; RESP 20
== END 2023-01-20 15:11 | disposition home or self-care (01) ==
LOC: ED 15:33 → MED SURG 20:04
PROVIDERS: ADMIT Internal Medicine; ATTEND Internal Medicine
DX: J44.1 Chronic obstructive pulmonary disease with (acute) exacerbation (principal); E86.0 Dehydration; I10 Essential (primary) hypertension; Z79.899 Other long term (current) drug therapy; F15.90 Other stimulant use, unspecified, uncomplicated; Z87.891 Personal history of nicotine dependence; Z20.828 Contact with and (suspected) exposure to other viral communicable diseases
CPT/HCPCS: 0241U; 36000; 36415; 71260; 80048; 80053; 80307; 81001; 84484; 85025; 85027; 87040; 93005; 93041; 93268; 94760; 94762; 99284; G0378; A9270-GY

== ENCOUNTER 2023-05-12 11:06 | Observation (INO) | payer MEDICARE ==
[2023-05-12] MEDS ORDERED: MAGNESIUM SULF 2 G/50 ML BAG 2 GM/50 ML PIGGYBACK IV ONE (11:32)
[2023-05-12] MEDS ORDERED: BABY ASPIRIN 81 MG CHEW ONE (11:32)
[2023-05-12] MEDS: MAGNESIUM SULF 2 G/50 ML BAG 2 GM/50 ML PIGGYBACK IV ONE (11:33)
[2023-05-12] MEDS: BABY ASPIRIN 81 MG CHEW PO ONE (11:33)
[2023-05-12] MEDS ORDERED: DUONEB 0.5-3 MG/3 ml Neb IH ONE (11:41)
--- NOTE | 2023-05-12 11:49 | XRAY ---
Indication: Short of breath. Comparison: June 14, 2022 Portable apical lordotic chest unchanged again hyperinflated and clear with a few incidental right lung calcified granulomas. Heart not enlarged. Bony thorax intact again with osteopenia, mild degenerative changes, and old left 6 rib fracture. No new/acute findings.
[2023-05-12] MEDS ORDERED: Sodium Chloride 0.9% 1000 ML 1,000 ML ONE (11:53)
[2023-05-12 11:54] LABS: Eosinophil % 1.2 % (0.00-5.0); Eosinophil (Absolute #) 0.12 x10^3/uL (0-0.5); Hematocrit 52.9 % (42-50); Hemoglobin 17.5 g/dL (12.5-18.0); IMMATURE GRAN # 0.03 x10^3u/L (0.00-0.03); IMMATURE GRAN % 0.3 % (0.00-0.4); Lymphocyte (Absolute #) 1.87 x10^3/uL (1.0-4.6); Lymphocytes % 19.1 % (24.0-44.0); Mean Cell Volume 93.6 fL (78-100); Mean Corpuscular Hgb Concent. 33.1 g/dL (32-36); Monocyte (Absolute #) 0.66 x10^3/uL (0.0-1.3); Monocytes % 6.7 % (0.0-12.0); Neutrophil % 71.7 % (36.0-66.0); Platelet Count 450 x10^3/uL (150-450); Red Blood Count 5.65 x10^6/uL (4.1-5.6); Red Cell Distribution Width 13.2 % (11.5-14.0); White Blood Count 9.8 x10^3/uL (4.0-10.5)
[2023-05-12] MEDS: Sodium Chloride 0.9% 1000 ML 1,000 ML IV STA (11:54)
--- NOTE | 2023-05-12 12:06 | ERPHSYRPT ---
- History of Present Illness Time Seen by Provider: 05/12/23 11:11 Source: patient Exam Limitations: no limitations Patient Subjective Stated Complaint: PT states "I have been short of breath since last night." Triage Nursing Assessment: PT presented alert and oriented X 3, skin wpd. PT irritable and tacypnic Pt advised he is on 4 lpm O2 all the time arrived with no portable tank and not on any oxygen. Physician History: 67-year-old male with history of COPD on 3 to 4 L oxygen as needed presented in the ER with increasing shortness of breath since last night with some chest discomfort all over. Patient reports weak fatigued tired and feeling of dehydration. Denies any cough or sick contact. No fever but did have some chills last night. Patient is supposed to be on some cardiac medications but has not been taking it for a long time. Not a good historian and history is limited. Allergies/Adverse Reactions: Penicillins Allergy (Verified 01/19/23 20:43) Home Medications: No Reportable Medications [No Reported Medications] 05/12/23 [History] Hx Tetanus, Diphtheria Vaccination/Date Given: Yes Hx Influenza Vaccination/Date Given: Yes Hx Pneumococcal Vaccination/Date Given: No Immunizations Up to Date: Yes Travel Risk - International Travel Have you traveled outside of the country in past 3 weeks: No - Coronavirus Screening Are you exhibiting any of the following symptoms?: Yes Symptoms: Shortness of Breath - Vaccine Status Have you recieved a Covid-19 vaccination: Yes Patient Care Technician: Unknown - Vaccination Dates Dates if Unknown: unknown - Review of Systems Constitutional: Chills, Fatigue, Weakness Eyes: No Symptoms Ears, Nose, & Throat: No Symptoms Respiratory: Dyspnea, Dyspnea on Exertion (JONES) Cardiac: Chest Pain Abdominal/Gastrointestinal: No Symptoms Genitourinary Symptoms: No Symptoms Musculoskeletal: No Symptoms Skin: No Symptoms Neurological: No Symptoms Endocrine: No Symptoms Hematologic/Lymphatic: No Symptoms - Past Medical History Pertinent Past Medical History: Yes Neurological History: No Pertinent History ENT History: No Pertinent History Cardiac History: Hypertension Respiratory History: Asthma, COPD Endocrine Medical History: No Pertinent History Musculoskeletal History: Fractures GI Medical History: No Pertinent History History: No Pertinent History Psycho-Social History: No Pertinent History Male Reproductive Disorders: No Pertinent History Other Medical History: pt is a poor historian, and unsure. Completed to best of ability. - Past Surgical History Past Surgical History: Yes Neuro Surgical History: No Pertinent History Cardiac: No Pertinent History Respiratory: No Pertinent History Gastrointestinal: No Pertinent History Genitourinary: No Pertinent History Musculoskeletal: No Pertinent History Male Surgical History: No Pertinent History Other Surgical History: SPLEEN REMOVED-several years ago - Social History Smoking Status: Former smoker How long have you smoked: YRS Exposure to second hand smoke: Yes Drug Use: none Patient Lives Alone: Yes Significant Family History: no pertinent family hx - Nursing Vital Signs Nursing Vital Signs: Initial Vital Signs Temperature 98.4 F 05/12/23 11:06 Pulse Rate 50 L 05/12/23 11:06 Respiratory Rate 28 H 05/12/23 11:06 Blood Pressure 151/82 05/12/23 11:06 O2 Sat by Pulse Oximetry 96 05/12/23 11:06 Pain Scale Pain Intensity 0 - Physical Exam General Appearance: no apparent distress, alert Eye Exam: PERRL/EOMI Ears, Nose, Throat Exam: hearing grossly normal Neck Exam: normal inspection, non-tender, supple, full range of motion Respiratory Exam: normal breath sounds, lungs clear Cardiovascular/Chest Exam: normal heart sounds, regular rate/rhythm Abdominal/Gastrointestinal Exam: soft, normal bowel sounds, No tenderness Extremity Exam: non-tender, normal range of motion, no calf tenderness Neurologic Exam: alert, oriented x 3, cooperative, 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 Skin Exam: normal color SpO2 Interpretation: O2 applied SpO2: 93 O2 Delivery: Nasal Cannula - Course EKG Interpreted by Me: RATE (90), Sinus Rhythm, NORMAL AXIS, prolonged QT interval, Q-wave, Other (Bigeminy) Ordered Tests: Active Orders 24 hr Category Date Time 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 STAT Care 05/12/23 11:27 Active EKG-ER Only STAT Care 05/12/23 11:26 Active IV Insertion STAT Care 05/12/23 11:26 Active Oxygen-ED Only Nasal Cannula 3 lpm Care 05/12/23 11:26 Active CHEST 1 VIEW (PORTABLE) Stat Exams 05/12/23 11:27 Completed BLOOD CULTURE Stat Lab 05/12/23 12:03 Received CBC W DIFF Stat Lab 05/12/23 11:25 Completed CMP Stat Lab 05/12/23 11:25 Completed Lactic Acid Stat Lab 05/12/23 11:48 Completed Lactic Acid Stat Lab 05/12/23 13:55 Received MAGNESIUM Stat Lab 05/12/23 11:25 Completed NT PRO BNPII Stat Lab 05/12/23 11:25 Completed PROCALCITONIN Stat Lab 05/12/23 11:20 Completed TROPONIN Q4H Lab 05/12/23 11:25 Completed TROPONIN Q4H Lab 05/12/23 15:30 Ordered TROPONIN Q4H Lab 05/12/23 19:30 Ordered TSH, 3RD Generation Stat Lab 05/12/23 11:25 Completed Transfer Order Routine Transfer 05/12/23 Ordered Medication Summary Discontinued Medications Generic Name Dose Route Start Last Admin Trade Name Freq PRN Reason Stop Dose Admin Albuterol/Ipratropium 3 ml 05/12/23 11:26 05/12/23 12:56 Ipratropium/Albuterol Sulfate 3 Ml Ampul.Neb IH 05/12/23 11:27 Not Given STAT ONE Albuterol/Ipratropium Confirm 05/12/23 11:41 Ipratropium/Albuterol Sulfate 3 Ml Ampul.Neb Administered 05/12/23 11:42 Dose 3 ml IH .STK-MED ONE Aspirin 324 mg 05/12/23 11:27 05/12/23 11:33 Aspirin 81 Mg Tab.Chew PO 05/12/23 11:28 324 mg STAT ONE Administration Aspirin Confirm 05/12/23 11:32 Aspirin 81 Mg Tab.Chew Administered 05/12/23 11:33 Dose 324 mg .ROUTE .STK-MED ONE Magnesium Sulfate/Water 2 gm in 50 mls @ 100 mls/hr 05/12/23 11:27 05/12/23 12:54 Magnesium Sulf 2 G/50 Ml Bag IV 05/12/23 11:56 Infused ONCE ONE Infusion Magnesium Sulfate/Water Confirm 05/12/23 11:32 Magnesium Sulf 2 G/50 Ml Bag Administered 05/12/23 11:33 Dose 2 gm in 50 mls @ ud IV .STK-MED ONE Sodium Chloride 1,000 mls @ 999 mls/hr 05/12/23 11:51 05/12/23 13:01 Sodium Chloride 0.9% 1000 Ml IV 05/12/23 12:51 Infused .Q1H1M STA Infusion Sodium Chloride Confirm 05/12/23 11:53 Sodium Chloride 0.9% 1000 Ml Administered 05/12/23 11:54 Dose 1,000 mls @ ud .ROUTE .STK-MED ONE Metoprolol Tartrate 2.5 mg 05/12/23 12:44 05/12/23 12:52 Metoprolol Tartrate 5 Mg/5 Ml Vial IV 05/12/23 12:45 2.5 mg STAT ONE Administration Metoprolol Tartrate Confirm 05/12/23 12:52 Metoprolol Tartrate 5 Mg/5 Ml Vial Administered 05/12/23 12:53 Dose 5 mg IV .STK-MED ONE Lab/Rad Data: Laboratory Result Diagrams 05/12/23 11:25 05/12/23 11:25 Laboratory Results 05/12/23 05/12/23 05/12/23 Range/Units 12:05 11:48 11:25 WBC (4.0-10.5) x10^3/uL RBC (4.1-5.6) x10^6/uL Hgb (12.5-18.0) g/dL Hct (42-50) % MCV (78-100) fL MCH (26-32) pg MCHC (32-36) g/dL RDW (11.5-14.0) % Plt Count (150-450) x10^3/uL MPV (7.5-11.0) fL Gran % (36.0-66.0) % Immature Gran % (Auto) (0.00-0.4) % Nucleat RBC Rel Count (0.00-0.1) % Eos # (Auto) (0-0.5) x10^3/uL Immature Gran # (Auto) (0.00-0.03) x10^3u/L Absolute Lymphs (auto) (1.0-4.6) x10^3/uL Absolute Monos (auto) (0.0-1.3) x10^3/uL Absolute Nucleated RBC (0.00-0.01) x10^3u/L Lymphocytes % (24.0-44.0) % Monocytes % (0.0-12.0) % Eosinophils % (0.00-5.0) % Basophils % (0.0-0.4) % Absolute Granulocytes (1.4-6.9) x10^3/uL Basophils # (0-0.4) x10^3/uL Sodium (137-145) mmol/L Potassium (3.5-5.1) mmol/L Chloride (98-107) mmol/L Carbon Dioxide (22-30) mmol/L Anion Gap (5-15) MEQ/L BUN (9-20) mg/dL Creatinine (0.66-1.25) mg/dL Estimated GFR ML/MIN Glucose (74-106) mg/dL Lactic Acid 3.9 H (0.4-2.0) Calcium (8.4-10.2) mg/dL Magnesium (1.6-2.3) mg/dL Total Bilirubin (0.2-1.3) mg/dL AST (17-59) U/L ALT (0-50) U/L Alkaline Phosphatase (38-126) U/L Troponin I 0.024 (0.000-0.034) ng/mL NT-Pro-B Natriuret Pep (<300) pg/mL Serum Total Protein (6.3-8.2) g/dL Albumin (3.5-5.0) g/dL Procalcitonin (0.030-0.080) ng/mL TSH 3rd Generation (0.47-4.68) mIU/L Influenza Type A Ag NEGATIVE (NEGATIVE) Influenza Type B Ag NEGATIVE (NEGATIVE) RSV (PCR) NEGATIVE (NEGATIVE) SARS-CoV-2 (PCR) NEGATIVE (NEGATIVE) 05/12/23 05/12/23 05/12/23 Range/Units 11:25 11:25 11:20 WBC 9.8 (4.0-10.5) x10^3/uL RBC 5.65 H (4.1-5.6) x10^6/uL Hgb 17.5 (12.5-18.0) g/dL Hct 52.9 H (42-50) % MCV 93.6 (78-100) fL MCH 31.0 (26-32) pg MCHC 33.1 (32-36) g/dL RDW 13.2 (11.5-14.0) % Plt Count 450 (150-450) x10^3/uL MPV 10.0 (7.5-11.0) fL Gran % 71.7 H (36.0-66.0) % Immature Gran % (Auto) 0.3 (0.00-0.4) % Nucleat RBC Rel Count 0.0 (0.00-0.1) % Eos # (Auto) 0.12 (0-0.5) x10^3/uL Immature Gran # (Auto) 0.03 (0.00-0.03) x10^3u/L Absolute Lymphs (auto) 1.87 (1.0-4.6) x10^3/uL Absolute Monos (auto) 0.66 (0.0-1.3) x10^3/uL Absolute Nucleated RBC 0.00 (0.00-0.01) x10^3u/L Lymphocytes % 19.1 L (24.0-44.0) % Monocytes % 6.7 (0.0-12.0) % Eosinophils % 1.2 (0.00-5.0) % Basophils % 1.0 (0.0-0.4) % Absolute Granulocytes 7.00 H (1.4-6.9) x10^3/uL Basophils # 0.10 (0-0.4) x10^3/uL Sodium 139 (137-145) mmol/L Potassium 3.5 (3.5-5.1) mmol/L Chloride 104 (98-107) mmol/L Carbon Dioxide 22 (22-30) mmol/L Anion Gap 15.4 H (5-15) MEQ/L BUN 14 (9-20) mg/dL Creatinine 1.19 (0.66-1.25) mg/dL Estimated GFR 67.0 ML/MIN Glucose 143 H (74-106) mg/dL Lactic Acid (0.4-2.0) Calcium 9.2 (8.4-10.2) mg/dL Magnesium 2.3 (1.6-2.3) mg/dL Total Bilirubin 1.00 (0.2-1.3) mg/dL AST 30 (17-59) U/L ALT 27 (0-50) U/L Alkaline Phosphatase 71 (38-126) U/L Troponin I (0.000-0.034) ng/mL NT-Pro-B Natriuret Pep 877 (<300) pg/mL Serum Total Protein 7.8 (6.3-8.2) g/dL Albumin 4.4 (3.5-5.0) g/dL Procalcitonin 0.060 (0.030-0.080) ng/mL TSH 3rd Generation 0.392 L (0.47-4.68) mIU/L Influenza Type A Ag (NEGATIVE) Influenza Type B Ag (NEGATIVE) RSV (PCR) (NEGATIVE) SARS-CoV-2 (PCR) (NEGATIVE) - Progress Progress: re-examined Air Movement: good Progress Note: 05/12/23 14:06 67-year-old is evaluated in the ER for shortness of breath with generalized weakness. Patient is having multiple PVCs, bigeminy and couplets without any ST elevations. He is given fluid bolus along with IV magnesium. Patient workup showed normal white count, fairly unremarkable chemistries except for low TSH which could be the reason for these bigeminy's. Patient has seen supervisor hard candy Dr. Clarke before but does not take any medications, I have shared the EKG with supervisor hard candy and he has compared with previous EKG in his office and do not think it is much different. He recommended patient to be started on metoprolol 50 mg XL daily, lisinopril 10 mg, Lipitor 20 mg and patient is given a dose of IV Lopressor 2.5 mg. Patient is feeling minimal improvement but still have PVCs. Also cardiology recommended obtaining CTA coronaries for further evaluation of CAD. Patient initial troponins are negative. Lactate is 3.9 but no obvious focus of infection, cultures are pending. Discussed with Dr. Dubon, reviewed history, workup and agreed with admission. Patient also has a negative COVID flu and RSV. I have shared the results of workup, cardiology recommendations and plan of admission with patient who understand and agrees with that. Blood Culture(s) Obtained: Yes Antibiotics given: No Discussed with : Lore Will see patient in: hospital (observation) Counseled pt/family regarding: lab results, diagnosis, rad results Medical Desision Making - Discussion of managment Care discussed with:: specialist (Dr. Clarke) Reviewed:: Test results, Need for additional workup Agreed on:: Treatment plan - Diagnostic Testing Diagnostic test were ordered, analyzed, and reviewed by me: Yes Radiological Interpretation: Reviewed by me - Risk of complications The pt has a high risk of morbidity or mortality based on: Decision regarding hospitilization or escalation of hosp level of care - Departure Departure Disposition: Observation Clinical Impression: Dyspnea, unspecified, Bigeminy Condition: Stable Critical Care Time: No Referrals: STEWART KENDALL MD [Primary Care Provider] - Follow up/PCP as directed
[2023-05-12 12:31] LABS: ALBUMIN 4.4 g/dL (3.5-5.0); ANION GAP 15.4 MEQ/L (5-15); Calcium 9.2 mg/dL (8.4-10.2); Creatinine 1 1.19 mg/dL (0.66-1.25); MAGNESIUM 2.3 mg/dL (1.6-2.3); Potassium 3.5 mmol/L (3.5-5.1); TSH, 3RD Generation 0.392 mIU/L (0.47-4.68); Total Protein 7.8 g/dL (6.3-8.2)
[2023-05-12] MEDS ORDERED: LOPRESSOR INJECTION IV ONE (12:52)
[2023-05-12] MEDS: LOPRESSOR INJECTION IV ONE (12:52)
[2023-05-12] MEDS: DUONEB 0.5-3 MG/3 ml Neb IH ONE (12:56)
[2023-05-12 13:32] LABS: INFLUENZA A NEGATIVE (NEGATIVE); INFLUENZA B NEGATIVE (NEGATIVE); RESPIRATORY SYNCTIAL VIRUS NEGATIVE (NEGATIVE); SARS-CoV-2 Xpert Express NEGATIVE (NEGATIVE)
--- NOTE | 2023-05-12 18:01 | PCM.HP ---
History of Present Illness - Chief Complaint Chief Complaint: SOB, CP Date: 05/12/23 History of Present Illness: is a 67 year old male with PMHX of asthma, COPD (on 3-4 L PRN), and spleen removed several years ago. He presented in the ER with increasing shor tness of breath since last night with some chest discomfort all over. Patient reports weak fatigued tired and feeling of dehydration. Denies any cough or sick contact. No fever but did have some chills last night. Patient is supposed to be on some cardiac medications but has not been taking it for a long time. Not a good historian and history is limited. In ER pt was having multiple PVCs, bigeminy and couplets without any ST elevations. He is given fluid bolus along with IV magnesium. Patient workup showed normal white count, fairly unremarkable chemistries except for low TSH which could be the reason for these bigeminy's. Patient has seen grinder operator external tool Dr. Portillo before but does not take any medications. ER MD spoke with grinder operator external [employer] and he has compared EKG with previous EKG in his office and he did not think it is much different. He recommended patient to be started on metoprolol 50 mg XL daily, lisinopril 10 mg, Lipitor 20 mg and patient is given a dose of IV Lopressor 2.5 mg. Patient is feeling minimal improvement but still have PVCs. Also cardiology recommended obtaining CTA coronaries for further evaluation of CAD. Patient initial troponins are negative. Lactate is 3.9 but no obvious focus of infection, cultures are pending. Patient also has a negative COVID flu and RSV. On admission pt continues to c/o SOB D-Dimer 0.78, CTA ordered for further eval. He smells of a strong odor, UA with C&S ordered as well as ammonia. He has some chest discomfort, SOB, denies abd. pain, N/V/D. - Review of Systems Constitutional: No Fever, No Chills Eyes: No Symptoms Ears, Nose, & Throat: No Symptoms Respiratory: Short Of Breath, No Cough Cardiac: Chest Pain, Orthopnea, No Edema, No Syncope Abdominal/Gastrointestinal: No Abdominal Pain, No Nausea, No Vomiting, No Diarrhea Genitourinary Symptoms: No Dysuria Musculoskeletal: No Back Pain, No Neck Pain Skin: No Rash Neurological: No Dizziness, No Focal Weakness, No Sensory Changes Psychological: No Symptoms Endocrine: No Symptoms Hematologic/Lymphatic: No Symptoms Immunological/Allergic: No Symptoms Medications & Allergies Home Medications: Home Medication List No Reportable Medications [No Reported Medications] 05/12/23 [History Confirmed 05/12/23] Allergies/Adverse Reactions: Allergies Allergy/AdvReac Type Severity Reaction Status Date / Time Penicillins Allergy Verified 01/19/23 20:43 - Past Medical History Past Medical History: Yes Neurological History: No Pertinent History ENT History: No Pertinent History Cardiac History: Hypertension Respiratory History: Asthma, COPD Endocrine Medical History: No Pertinent History Musculoskelatal History: Fractures GI Medical History: No Pertinent History History: No Pertinent History Pyscho-Social History: No Pertinent History Male Reproductive Disorders: No Pertinent History Comment: pt is a poor historian, and unsure. Completed to best of ability. - Past Surgical History Past Surgical History: Yes Neuro Surgical History: No Pertinent History Cardiac History: No Pertinent History Respiratory Surgery: No Pertinent History GI Surgical History: No Pertinent History Genitourinary Surgical Hx: No Pertinent History Musculskeletal Surgical Hx: No Pertinent History Male Surgical History: No Pertinent History Other Surgical History: SPLEEN REMOVED-several years ago Significant Family History: no pertinent family hx - Social History Smoking Status: Former smoker How long have you smoked: YRS Exposure to second hand smoke: Yes Alcohol: Rarely Drug Use: none - Social Determinants of Health Will the patient participate in the screening: Declined to provide - Physical Exam Vital Signs: Vital Signs - 24 hr Temp Pulse Resp BP BP Pulse Ox 05/12/23 17:31 81 23 160/86 94 L 05/12/23 17:26 88 24 140/87 92 L 05/12/23 17:25 81 23 95 05/12/23 17:24 77 23 95 05/12/23 17:10 86 22 95 05/12/23 17:01 90 27 H 05/12/23 16:50 84 23 96 05/12/23 16:40 84 24 93 L 05/12/23 16:30 85 25 H 97 05/12/23 16:20 86 20 05/12/23 16:16 92 H 26 H 05/12/23 16:01 83 22 131/90 95 05/12/23 16:00 77 21 95 05/12/23 15:50 83 24 97 05/12/23 15:48 85 21 05/12/23 15:32 140/90 05/12/23 15:16 80 16 146/76 97 05/12/23 15:10 80 14 98 05/12/23 15:03 83 19 97 05/12/23 14:46 76 19 154/95 96 05/12/23 14:32 75 23 145/106 100 05/12/23 14:10 93 L 05/12/23 14:01 70 17 145/115 98 05/12/23 13:46 74 16 147/89 97 05/12/23 13:30 70 17 143/101 05/12/23 13:16 73 19 136/94 97 05/12/23 13:01 74 19 143/100 98 05/12/23 12:52 76 18 161/99 83 L 05/12/23 12:51 86 17 05/12/23 12:50 81 16 05/12/23 12:48 97 H 23 05/12/23 12:31 86 22 150/93 97 05/12/23 12:16 83 18 128/78 97 05/12/23 12:04 81 20 147/77 100 05/12/23 11:46 85 28 H 157/57 98 05/12/23 11:34 86 24 151/80 93 L 05/12/23 11:10 85 31 H 151/82 99 05/12/23 11:07 26 H 98 05/12/23 11:06 98.4 F 50 L 28 H 151/82 96 General Appearance: mild distress, alert Neurologic Exam: alert, oriented x 3, cooperative, normal mood/affect, nml cerebellar function, nml station & gait, sensation nml, No motor deficits Eye Exam: PERRL/EOMI, eyes nml inspection Ears, Nose, Throat Exam: normal ENT inspection, TMs normal, pharynx normal, moist mucous membranes Neck Exam: normal inspection, non-tender, supple, full range of motion Respiratory Exam: normal breath sounds, lungs clear, No respiratory distress Cardiovascular Exam: regular rate/rhythm, normal heart sounds, normal peripheral pulses Gastrointestinal/Abdomen Exam: soft, normal bowel sounds, No tenderness, No mass Back Exam: normal inspection, normal range of motion, No CVA tenderness, No vertebral tenderness Extremity Exam: normal inspection, normal range of motion, pelvis stable Skin Exam: normal color, warm, dry, No rash Lymphatic Exam: No adenopathy Results - Labs Lab/Micro Results: Lab Results-Last 24 Hours 05/12/23 05/12/23 05/12/23 Range/Units 11:06 11:20 11:25 WBC 9.8 (4.0-10.5) x10^3/uL RBC 5.65 H (4.1-5.6) x10^6/uL Hgb 17.5 (12.5-18.0) g/dL Hct 52.9 H (42-50) % MCV 93.6 (78-100) fL MCH 31.0 (26-32) pg MCHC 33.1 (32-36) g/dL RDW 13.2 (11.5-14.0) % Plt Count 450 (150-450) x10^3/uL MPV 10.0 (7.5-11.0) fL Gran % 71.7 H (36.0-66.0) % Immature Gran % (Auto) 0.3 (0.00-0.4) % Nucleat RBC Rel Count 0.0 (0.00-0.1) % Eos # (Auto) 0.12 (0-0.5) x10^3/uL Immature Gran # (Auto) 0.03 (0.00-0.03) x10^3u/L Absolute Lymphs (auto) 1.87 (1.0-4.6) x10^3/uL Absolute Monos (auto) 0.66 (0.0-1.3) x10^3/uL Absolute Nucleated RBC 0.00 (0.00-0.01) x10^3u/L Lymphocytes % 19.1 L (24.0-44.0) % Monocytes % 6.7 (0.0-12.0) % Eosinophils % 1.2 (0.00-5.0) % Basophils % 1.0 (0.0-0.4) % Absolute Granulocytes 7.00 H (1.4-6.9) x10^3/uL Basophils # 0.10 (0-0.4) x10^3/uL D-Dimer 0.78 H* (0.0-0.50) mg/L Sodium (137-145) mmol/L Potassium (3.5-5.1) mmol/L Chloride (98-107) mmol/L Carbon Dioxide (22-30) mmol/L Anion Gap (5-15) MEQ/L BUN (9-20) mg/dL Creatinine (0.66-1.25) mg/dL Estimated GFR ML/MIN Glucose (74-106) mg/dL Lactic Acid (0.4-2.0) Calcium (8.4-10.2) mg/dL Magnesium (1.6-2.3) mg/dL Total Bilirubin (0.2-1.3) mg/dL AST (17-59) U/L ALT (0-50) U/L Alkaline Phosphatase (38-126) U/L Troponin I (0.000-0.034) ng/mL NT-Pro-B Natriuret Pep (<300) pg/mL Serum Total Protein (6.3-8.2) g/dL Albumin (3.5-5.0) g/dL Procalcitonin 0.060 (0.030-0.080) ng/mL TSH 3rd Generation (0.47-4.68) mIU/L Influenza Type A Ag (NEGATIVE) Influenza Type B Ag (NEGATIVE) RSV (PCR) (NEGATIVE) SARS-CoV-2 (PCR) (NEGATIVE) 05/12/23 05/12/23 05/12/23 Range/Units 11:25 11:25 11:48 WBC (4.0-10.5) x10^3/uL RBC (4.1-5.6) x10^6/uL Hgb (12.5-18.0) g/dL Hct (42-50) % MCV (78-100) fL MCH (26-32) pg MCHC (32-36) g/dL RDW (11.5-14.0) % Plt Count (150-450) x10^3/uL MPV (7.5-11.0) fL Gran % (36.0-66.0) % Immature Gran % (Auto) (0.00-0.4) % Nucleat RBC Rel Count (0.00-0.1) % Eos # (Auto) (0-0.5) x10^3/uL Immature Gran # (Auto) (0.00-0.03) x10^3u/L Absolute Lymphs (auto) (1.0-4.6) x10^3/uL Absolute Monos (auto) (0.0-1.3) x10^3/uL Absolute Nucleated RBC (0.00-0.01) x10^3u/L Lymphocytes % (24.0-44.0) % Monocytes % (0.0-12.0) % Eosinophils % (0.00-5.0) % Basophils % (0.0-0.4) % Absolute Granulocytes (1.4-6.9) x10^3/uL Basophils # (0-0.4) x10^3/uL D-Dimer (0.0-0.50) mg/L Sodium 139 (137-145) mmol/L Potassium 3.5 (3.5-5.1) mmol/L Chloride 104 (98-107) mmol/L Carbon Dioxide 22 (22-30) mmol/L Anion Gap 15.4 H (5-15) MEQ/L BUN 14 (9-20) mg/dL Creatinine 1.19 (0.66-1.25) mg/dL Estimated GFR 67.0 ML/MIN Glucose 143 H (74-106) mg/dL Lactic Acid 3.9 H (0.4-2.0) Calcium 9.2 (8.4-10.2) mg/dL Magnesium 2.3 (1.6-2.3) mg/dL Total Bilirubin 1.00 (0.2-1.3) mg/dL AST 30 (17-59) U/L ALT 27 (0-50) U/L Alkaline Phosphatase 71 (38-126) U/L Troponin I 0.024 (0.000-0.034) ng/mL NT-Pro-B Natriuret Pep 877 (<300) pg/mL Serum Total Protein 7.8 (6.3-8.2) g/dL Albumin 4.4 (3.5-5.0) g/dL Procalcitonin (0.030-0.080) ng/mL TSH 3rd Generation 0.392 L (0.47-4.68) mIU/L Influenza Type A Ag (NEGATIVE) Influenza Type B Ag (NEGATIVE) RSV (PCR) (NEGATIVE) SARS-CoV-2 (PCR) (NEGATIVE) 05/12/23 05/12/23 05/12/23 Range/Units 12:05 13:55 15:36 WBC (4.0-10.5) x10^3/uL RBC (4.1-5.6) x10^6/uL Hgb (12.5-18.0) g/dL Hct (42-50) % MCV (78-100) fL MCH (26-32) pg MCHC (32-36) g/dL RDW (11.5-14.0) % Plt Count (150-450) x10^3/uL MPV (7.5-11.0) fL Gran % (36.0-66.0) % Immature Gran % (Auto) (0.00-0.4) % Nucleat RBC Rel Count (0.00-0.1) % Eos # (Auto) (0-0.5) x10^3/uL Immature Gran # (Auto) (0.00-0.03) x10^3u/L Absolute Lymphs (auto) (1.0-4.6) x10^3/uL Absolute Monos (auto) (0.0-1.3) x10^3/uL Absolute Nucleated RBC (0.00-0.01) x10^3u/L Lymphocytes % (24.0-44.0) % Monocytes % (0.0-12.0) % Eosinophils % (0.00-5.0) % Basophils % (0.0-0.4) % Absolute Granulocytes (1.4-6.9) x10^3/uL Basophils # (0-0.4) x10^3/uL D-Dimer (0.0-0.50) mg/L Sodium (137-145) mmol/L Potassium (3.5-5.1) mmol/L Chloride (98-107) mmol/L Carbon Dioxide (22-30) mmol/L Anion Gap (5-15) MEQ/L BUN (9-20) mg/dL Creatinine (0.66-1.25) mg/dL Estimated GFR ML/MIN Glucose (74-106) mg/dL Lactic Acid 2.2 H (0.4-2.0) Calcium (8.4-10.2) mg/dL Magnesium (1.6-2.3) mg/dL Total Bilirubin (0.2-1.3) mg/dL AST (17-59) U/L ALT (0-50) U/L Alkaline Phosphatase (38-126) U/L Troponin I 0.021 (0.000-0.034) ng/mL NT-Pro-B Natriuret Pep (<300) pg/mL Serum Total Protein (6.3-8.2) g/dL Albumin (3.5-5.0) g/dL Procalcitonin (0.030-0.080) ng/mL TSH 3rd Generation (0.47-4.68) mIU/L Influenza Type A Ag NEGATIVE (NEGATIVE) Influenza Type B Ag NEGATIVE (NEGATIVE) RSV (PCR) NEGATIVE (NEGATIVE) SARS-CoV-2 (PCR) NEGATIVE (NEGATIVE) - Radiology Impressions Radiology Exams & Impressions: Radiology Procedures Category Date Time Status CHEST 1 VIEW (PORTABLE) Stat Exams 05/12/23 11:27 Completed Assessment/Plan (1) Chest pain Current Visit: No Status: Acute Qualifiers: Chest pain type: unspecified Qualified Code(s): R07.9 - Chest pain, unspecified Assessment & Plan: - trop x3 - Trop 0.021, 0.024 - Per cardiology metoprolol XL 50mg daily, lisinopril, Zocor, and lasix - tele - echo - hx meth drug use- UDS - ASA 324mg once in ER - Start ASA 81 mg daily Code(s): R07.9 - CHEST PAIN, UNSPECIFIED (2) Non-compliance Current Visit: Yes Status: Acute Assessment & Plan: - hx of non-compliance, not taking home meds as prescribed Code(s): Z91.199 - PT NONCOMPL WITH OTHER MED TRTMT AND REGIMEN D/T UNSP REASON (3) Bigeminy Current Visit: Yes Status: Acute Assessment & Plan: - as seen on EKG and tele - see above CP plan Code(s): I49.8 - OTHER SPECIFIED CARDIAC ARRHYTHMIAS (4) Dyspnea, unspecified Current Visit: Yes Status: Acute Assessment & Plan: - r/t abnormal heart rhythm or drug use ?? - Chest CTA- pending - D-Dimer 0.78 - RA 94% Code(s): R06.00 - DYSPNEA, UNSPECIFIED (5) Hypertension Current Visit: No Status: Chronic Qualifiers: Hypertension type: unspecified Qualified Code(s): I10 - Essential (primary) hypertension Assessment & Plan: - Started metoprolol and lisinopril - Monitor Code(s): I10 - ESSENTIAL (PRIMARY) HYPERTENSION (6) Amphetamine use Current Visit: No Status: Acute Assessment & Plan: - history of use - denies IV use - he reports he is unsure of any recent smoking use. - UDS VTE: Lovenox PPI: protonix Next of KIN: none D/C plan: 1-2 days Code status: Full Code(s): F15.90 - OTHER STIMULANT USE, UNSPECIFIED, UNCOMPLICATED
[2023-05-12 18:07] LABS: Appearance Cloudy (Clear); Bilirubin Negative (Negative); Blood Negative (Negative); Glucose, Urine 250 mg/dL (Negative); Ketones Negative (Negative); Leukocyte Esterase Small (Negative); Nitrite Positive (Negative); Protein,Urine Dip Negative (Negative); Urobilinogen 0.2 mg/dL (0.2)
[2023-05-12 18:18] LABS: Bacteria Few /HPF (None Seen); Epithelial Cells None Seen /HPF (None Seen); RBC 21-50 /HPF (0-5); WBC 0-2 /HPF (0-5)
[2023-05-12 18:19] LABS: ADD URINE CULTURE? YES (NO)
[2023-05-12 18:42] LABS: Barbiturate,Urine NEGATIVE (NEGATIVE); Benzodiazepine,Urine NEGATIVE (NEGATIVE); Cocaine,Urine NEGATIVE (NEGATIVE); Methadone,Urine NEGATIVE (NEGATIVE); Opiate,Urine NEGATIVE (NEGATIVE); PCP,Urine NEGATIVE (NEGATIVE); THC,Urine NEGATIVE (NEGATIVE)
[2023-05-12 20:21] LABS: Amphetamine,Urine POSITIVE (NEGATIVE)
[2023-05-12] MEDS: Nitrostat 0.4 MG Tablet SL PRN (23:37)
[2023-05-13 00:15] LABS: MAGNESIUM 2.3 mg/dL (1.6-2.3); Potassium 3.9 mmol/L (3.5-5.1); TROPONIN 0.027 ng/mL (0.000-0.034)
[2023-05-13] MEDS ORDERED: Hydromorphone 1 mg/ml Injection ONE (00:31)
[2023-05-13] MEDS: Hydromorphone 1 mg/ml Injection IV PRN ×2 (00:34→12:47)
[2023-05-13] MEDS: Hydromorphone 1 mg/ml Injection IV ONE (02:11)
[2023-05-13] MEDS ORDERED: NEXTERONE 360 MG/200 ML BAG 360 MG/200 ML PLAST..BAG IV ONE (03:14)
[2023-05-13] MEDS ORDERED: Sodium Chloride 0.9% 1000 ML 1,000 ML ONE (03:15)
[2023-05-13] MEDS: NEXTERONE 360 MG/200 ML BAG 360 MG/200 ML PLAST..BAG IV SCH ×2 (03:50→19:41)
[2023-05-13] MEDS: Sodium Chloride 0.9% 1000 ML 1,000 ML IV SCH (03:50)
[2023-05-13 06:05] LABS: ALBUMIN 3.8 g/dL (3.5-5.0); ANION GAP 9.2 MEQ/L (5-15); BILIRUBIN,TOTAL 0.7 mg/dL (0.2-1.3); Calcium 8.5 mg/dL (8.4-10.2); Creatinine 1 1.11 mg/dL (0.66-1.25); EST GLOMERULAR FILTRATION RATE 72.8 ML/MIN; Total Protein 6.8 g/dL (6.3-8.2)
[2023-05-13] MEDS: VENTOLIN COMMON CANISTER IH PRN (06:46)
--- NOTE | 2023-05-13 08:39 | XRAY ---
Indication: Short of breath. Elevated d-dimer. Multiple contiguous axial images obtained through the chest using 80 cc Isovue 370 contrast and PE protocol. Comparison: January 19, 2023 Good opacification of the pulmonary arteries to include lobar and segmental branches. No pulmonary embolus. Heart not enlarged. Aorta mildly arteriosclerotic without aneurysm/dissection. Stable small right hilar calcified node. No pathologic mediastinal/hilar lymphadenopathy. There remains mild left hemidiaphragm elevation. Lungs again demonstrates moderate diffuse pulmonary emphysema, scattered fibrosis/scarring, and small right mid lung calcified granuloma. No suspicious pulmonary mass/nodule, infiltrate, effusion, or pneumothorax. Bony thorax intact again with mild/moderate degenerative changes to the spine and old left rib fractures. 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 Incidental 1 cm left mid renal cortical cyst not previously imaged. Impression: 1. Continued negative pulmonary embolus. No new/acute cardiopulmonary abnormalities. 2. Again chronic findings including pulmonary emphysema, pulmonary fibrosis/scarring, arteriosclerotic disease, chronic bony findings, left renal cyst, and old granulomatous disease.
[2023-05-13 08:52] LABS: Hematocrit 49.7 % (42-50); Hemoglobin 16.3 g/dL (12.5-18.0); Mean Corpuscular Hemoglobin 31.2 pg (26-32); Mean Corpuscular Hgb Concent. 32.8 g/dL (32-36); Mean Platelet Volume 10.6 fL (7.5-11.0); Platelet Count 420 x10^3/uL (150-450); Red Blood Count 5.23 x10^6/uL (4.1-5.6); Red Cell Distribution Width 13.3 % (11.5-14.0); White Blood Count 10.7 x10^3/uL (4.0-10.5)
[2023-05-13] MEDS ORDERED: Zestril 10 MG PO SCH (10:00)
[2023-05-13] MEDS ORDERED: BABY ASPIRIN 81 MG CHEW PO SCH (10:00)
[2023-05-13] MEDS ORDERED: Zocor 10MG PO SCH (10:00)
[2023-05-13] MEDS ORDERED: ENOXAPARIN SODIUM SQ SCH (10:00)
[2023-05-13] MEDS ORDERED: Protonix 20MG Tablet PO SCH (10:00)
[2023-05-13] MEDS ORDERED: Toprol Xl 50 MG PO SCH (10:00)
[2023-05-13] MEDS: ECOTRIN 81 MG PO SCH (10:03)
[2023-05-13] MEDS: Toprol Xl 50 MG PO SCH (10:03)
[2023-05-13] MEDS: Protonix 20MG Tablet PO SCH (10:03)
[2023-05-13] MEDS: Lasix 20 MG/2 ML IV SCH (10:03)
[2023-05-13] MEDS: Zestril 10 MG PO SCH (10:03)
[2023-05-13] MEDS: ROCEPHIN 1 GM / 100 ML NaCl 1 GM/100 ML IVPB IV SCH (10:03)
[2023-05-13] MEDS ORDERED: Lasix 20 MG/2 ML IV SCH (18:25)
--- NOTE | 2023-05-13 18:35 | PCM.NOTE ---
Date and Time: 05/13/231829 Subjective Assessment: 05/12/23 is a 67 year old male with PMHX of asthma, COPD (on 3-4 L PRN), and spleen removed several years ago. He presented in the ER with increasing shortness of breath since last night with some chest discomfort all over. Patient reports weak fatigued tired and feeling of dehydration. Denies any cough or sick contact. No fever but did have some chills last night. Patient is supposed to be on some cardiac medications but has not been taking it for a long time. Not a good historian and history is limited. In ER pt was having multiple PVCs, bigeminy and couplets without any ST elevations. He is given fluid bolus along with IV magnesium. Patient workup showed normal white count, fairly unremarkable chemistries except for low TSH which could be the reason for these bigeminy's. Patient has seen fbi investigator Dr. Portillo before but does not take any medications. ER MD spoke with [employer] investigator and he has compared EKG with previous EKG in his office and he did not think it is much different. He recommended patient to be started on metoprolol 50 mg XL daily, lisinopril 10 mg, Lipitor 20 mg and patient is given a dose of IV Lopressor 2.5 mg. Patient is feeling minimal improvement but still have PVCs. Also cardiology recommended obtaining CTA coronaries for further evaluation of CAD. Patient initial troponins are negative. Lactate is 3.9 but no obvious focus of infection, cultures are pending. Patient also has a negative COVID flu and RSV. On admission pt continues to c/o SOB D-Dimer 0.78, CTA ordered for further eval. He smells of a strong odor, UA with C&S ordered as well as ammonia. He has some chest discomfort, SOB, denies abd. pain, N/V/D. 05/13/23 Pt resting in bed. He was moved to ICU overnight for episodes of v-tach and bigemy PVC's. He was placed on an amiodarone gtt. He continues to have the same irregular rhythms. UDS was + for meth. Discussed with pt and he feels he needs help OP. He denies suicidal or homicidal thoughts. He states he has not bee taking his meds as he does not have time to pick them up. He reported he does not work. He just does not have time. Ceftriaxone started for UTI. Transfer to a higher level of care d/t continued abnormal rhythms, on amiodarone gtt, and overnight CP. Pt's fbi investigator is at [facility]. He denies Abd pain, N/V/D. - Review of Systems Constitutional: No Fever, No Chills Eyes: No Symptoms Ears, Nose, & Throat: No Symptoms Respiratory: No Cough, No Short Of Breath Cardiac: Chest Pain, No Edema, No Syncope Abdominal/Gastrointestinal: No Abdominal Pain, No Nausea, No Vomiting, No Diarrhea Genitourinary Symptoms: No Dysuria Musculoskeletal: No Back Pain, No Neck Pain Skin: No Rash Neurological: No Dizziness, No Focal Weakness, No Sensory Changes Psychological: No Symptoms Endocrine: No Symptoms Hematologic/Lymphatic: No Symptoms Immunological/Allergic: No Symptoms Objective Exam General Appearance: no apparent distress, alert Neurologic Exam: alert, oriented x 3, cooperative, normal mood/affect, nml cerebellar function, sensation nml, No motor deficits Skin Exam: normal color, warm, dry Eye Exam: PERRL, EOMI, eyes nml inspection Ears, Nose, Throat Exam: normal ENT inspection, pharynx normal, moist mucous membranes Neck Exam: normal inspection, non-tender, supple, full range of motion Respiratory Exam: normal breath sounds, lungs clear, No respiratory distress Cardiovascular Exam: irregular Gastrointestinal/Abdomen Exam: soft, No tenderness, No mass Extremity Exam: normal inspection, normal range of motion Back Exam: normal inspection, normal range of motion, No CVA tenderness, No vertebral tenderness Male Genitalia Exam: deferred Rectal Exam: deferred OBJECTIVE DATA Vital Signs: Vital Signs - 24 hr Temp Pulse Resp BP BP BP Pulse Ox 05/13/23 18:00 62 15 126/80 96 05/13/23 17:30 72 21 144/91 94 L 05/13/23 17:19 68 20 97 05/13/23 17:00 72 22 129/88 98 05/13/23 16:30 71 19 133/97 05/13/23 16:00 98.0 F 78 21 92/51 97 05/13/23 15:30 64 16 92/51 05/13/23 15:00 68 18 138/89 98 05/13/23 14:00 76 19 145/96 95 05/13/23 13:30 62 14 123/72 96 05/13/23 13:00 63 10 L 124/96 97 05/13/23 12:30 69 19 134/67 97 05/13/23 12:00 97.5 F 75 23 118/88 96 05/13/23 11:30 74 21 107/74 96 05/13/23 10:30 77 133/91 96 05/13/23 10:00 85 16 160/86 96 05/13/23 09:30 73 25 H 154/84 96 05/13/23 09:00 78 20 137/86 96 05/13/23 08:30 74 19 141/77 100 05/13/23 08:00 97.7 F 76 19 146/79 126/91 97 05/13/23 07:27 82 18 95 05/13/23 07:00 80 24 95 05/13/23 06:30 97.7 F 87 18 126/91 97 05/13/23 06:15 87 18 126/91 97 05/13/23 06:00 97.7 F 86 22 123/61 98 05/13/23 05:45 70 18 105/75 97 05/13/23 05:15 78 24 105/76 98 05/13/23 04:30 82 24 134/73 98 05/13/23 04:00 70 24 125/81 93 L 05/13/23 03:45 78 22 146/99 96 05/13/23 03:38 97.6 F 84 24 124/58 96 05/13/23 00:01 41 L 118/65 05/12/23 23:52 97.5 F 43 L 20 130/60 97 05/12/23 23:37 45 L 133/75 05/12/23 20:00 96.8 F 48 L 22 142/69 99 05/12/23 18:51 95 05/12/23 18:50 75 22 95 Pain Assessment - Last Documented Pain Intensity 5 Pain Scale Used 0-10 Pain Scale Intake and Output: Intake & Output 05/11/23 05/12/23 05/13/23 05/14/23 11:59 11:59 11:59 11:59 Intake Total 600 Output Total 200 Balance 400 Weight 96.2 kg 96.2 kg Lab Results: Lab Results-Last 24 Hours 05/12/23 05/12/23 05/12/23 Range/Units 15:30 18:00 18:00 WBC (4.0-10.5) x10^3/uL RBC (4.1-5.6) x10^6/uL Hgb (12.5-18.0) g/dL Hct (42-50) % MCV (78-100) fL MCH (26-32) pg MCHC (32-36) g/dL RDW (11.5-14.0) % Plt Count (150-450) x10^3/uL MPV (7.5-11.0) fL D-Dimer (0.0-0.50) mg/L Sodium (137-145) mmol/L Potassium (3.5-5.1) mmol/L Chloride (98-107) mmol/L Carbon Dioxide (22-30) mmol/L Anion Gap (5-15) MEQ/L BUN (9-20) mg/dL Creatinine (0.66-1.25) mg/dL Estimated GFR ML/MIN Glucose (74-106) mg/dL Calcium (8.4-10.2) mg/dL Magnesium (1.6-2.3) mg/dL Total Bilirubin (0.2-1.3) mg/dL AST (17-59) U/L ALT (0-50) U/L Alkaline Phosphatase (38-126) U/L Ammonia 27 (9-30) umol/L Troponin I (0.000-0.034) ng/mL Serum Total Protein (6.3-8.2) g/dL Albumin (3.5-5.0) g/dL Urine Opiates Level NEGATIVE (NEGATIVE) Ur Methadone NEGATIVE (NEGATIVE) Urine Barbiturates NEGATIVE (NEGATIVE) Ur Phencyclidine (PCP) NEGATIVE (NEGATIVE) Urine Amphetamine POSITIVE A (NEGATIVE) U Benzodiazepine Level NEGATIVE (NEGATIVE) Urine Cocaine NEGATIVE (NEGATIVE) Urine Marijuana (THC) NEGATIVE (NEGATIVE) Ethyl Alcohol < 10 (0-10) mg/dL 05/12/23 05/12/23 05/12/23 Range/Units 20:22 20:22 23:35 WBC (4.0-10.5) x10^3/uL RBC (4.1-5.6) x10^6/uL Hgb (12.5-18.0) g/dL Hct (42-50) % MCV (78-100) fL MCH (26-32) pg MCHC (32-36) g/dL RDW (11.5-14.0) % Plt Count (150-450) x10^3/uL MPV (7.5-11.0) fL D-Dimer 0.74 H* (0.0-0.50) mg/L Sodium (137-145) mmol/L Potassium 3.9 (3.5-5.1) mmol/L Chloride (98-107) mmol/L Carbon Dioxide (22-30) mmol/L Anion Gap (5-15) MEQ/L BUN (9-20) mg/dL Creatinine (0.66-1.25) mg/dL Estimated GFR ML/MIN Glucose (74-106) mg/dL Calcium (8.4-10.2) mg/dL Magnesium 2.3 (1.6-2.3) mg/dL Total Bilirubin (0.2-1.3) mg/dL AST (17-59) U/L ALT (0-50) U/L Alkaline Phosphatase (38-126) U/L Ammonia (9-30) umol/L Troponin I 0.025 0.027 (0.000-0.034) ng/mL Serum Total Protein (6.3-8.2) g/dL Albumin (3.5-5.0) g/dL Urine Opiates Level (NEGATIVE) Ur Methadone (NEGATIVE) Urine Barbiturates (NEGATIVE) Ur Phencyclidine (PCP) (NEGATIVE) Urine Amphetamine (NEGATIVE) U Benzodiazepine Level (NEGATIVE) Urine Cocaine (NEGATIVE) Urine Marijuana (THC) (NEGATIVE) Ethyl Alcohol (0-10) mg/dL 05/13/23 05/13/23 Range/Units 04:13 05:20 WBC 10.7 H (4.0-10.5) x10^3/uL RBC 5.23 (4.1-5.6) x10^6/uL Hgb 16.3 (12.5-18.0) g/dL Hct 49.7 (42-50) % MCV 95.0 (78-100) fL MCH 31.2 (26-32) pg MCHC 32.8 (32-36) g/dL RDW 13.3 (11.5-14.0) % Plt Count 420 (150-450) x10^3/uL MPV 10.6 (7.5-11.0) fL D-Dimer (0.0-0.50) mg/L Sodium 136 L (137-145) mmol/L Potassium 4.0 (3.5-5.1) mmol/L Chloride 109 H (98-107) mmol/L Carbon Dioxide 22 (22-30) mmol/L Anion Gap 9.2 (5-15) MEQ/L BUN 17 (9-20) mg/dL Creatinine 1.11 (0.66-1.25) mg/dL Estimated GFR 72.8 ML/MIN Glucose 106 (74-106) mg/dL Calcium 8.5 (8.4-10.2) mg/dL Magnesium (1.6-2.3) mg/dL Total Bilirubin 0.70 (0.2-1.3) mg/dL AST 23 (17-59) U/L ALT 22 (0-50) U/L Alkaline Phosphatase 69 (38-126) U/L Ammonia (9-30) umol/L Troponin I (0.000-0.034) ng/mL Serum Total Protein 6.8 (6.3-8.2) g/dL Albumin 3.8 (3.5-5.0) g/dL Urine Opiates Level (NEGATIVE) Ur Methadone (NEGATIVE) Urine Barbiturates (NEGATIVE) Ur Phencyclidine (PCP) (NEGATIVE) Urine Amphetamine (NEGATIVE) U Benzodiazepine Level (NEGATIVE) Urine Cocaine (NEGATIVE) Urine Marijuana (THC) (NEGATIVE) Ethyl Alcohol (0-10) mg/dL Radiology Exams: Radiology Procedures Category Date Time Status CHEST 1 VIEW (PORTABLE) Stat Exams 05/12/23 11:27 Completed CHEST WITH CONTRAST [CT] Stat Exams 05/12/23 18:51 Completed ECHO W/2D AND DOPPLER [US] Stat Exams 05/13/23 08:00 Taken Multi-Disciplinary Progress Notes: Multi-Disciplinary Progress Notes 05/13/23 17:48 Case Management Note by Elaina Kessler CASE MANAGEMENT/DC PLANNING DEFERRED AT THIS TIME- PATIENT WAITING FOR TRANSFER TO HIGHER LEVEL OF CARE AT THIS TIME Initialized on 05/13/23 17:48 - END OF NOTE Assessment/Plan (1) Chest pain Current Visit: No Status: Acute Qualifiers: Chest pain type: unspecified Qualified Code(s): R07.9 - Chest pain, unspecified Assessment & Plan: - Trop all negative - Per cardiology metoprolol XL 50mg daily, lisinopril, Zocor, and lasix - tele - echo- EF 42% per or scrub tech- awaiting offical read by cardilogy - hx meth drug use- UDS - ASA 324mg once in ER - Start ASA 81 mg daily Code(s): R07.9 - CHEST PAIN, UNSPECIFIED (2) Non-compliance Current Visit: Yes Status: Acute Assessment & Plan: - hx of non-compliance, not taking home meds as prescribed Code(s): Z91.199 - PT NONCOMPL WITH OTHER MED TRTMT AND REGIMEN D/T UNSP REASON (3) Bigeminy Current Visit: Yes Status: Acute Assessment & Plan: - as seen on EKG and tele - see above CP plan Code(s): I49.8 - OTHER SPECIFIED CARDIAC ARRHYTHMIAS (4) Dyspnea, unspecified Current Visit: Yes Status: Acute Assessment & Plan: - r/t abnormal heart rhythm or drug use ?? - Chest CTA- Impression: 1. Continued negative pulmonary embolus. No new/acute cardiopulmonary abnormalities. 2. Again chronic findings including pulmonary emphysema, pulmonary fibrosis/scarring, arteriosclerotic disease, chronic bony findings, left renal cyst, and old granulomatous disease. - D-Dimer 0.78 - RA 94% Code(s): R06.00 - DYSPNEA, UNSPECIFIED (5) Hypertension Current Visit: No Status: Chronic Qualifiers: Hypertension type: unspecified Qualified Code(s): I10 - Essential (primary) hypertension Assessment & Plan: - Started metoprolol and lisinopril - Monitor Code(s): I10 - ESSENTIAL (PRIMARY) HYPERTENSION (6) Amphetamine use Current Visit: No Status: Acute Assessment & Plan: - history of use - denies IV use - he reports he is unsure of any recent smoking use. - UDS+ for meth Code(s): F15.90 - OTHER STIMULANT USE, UNSPECIFIED, UNCOMPLICATED (7) Hyperthyroidism Current Visit: Yes Status: Acute Assessment & Plan: -TSH 0.392 Code(s): E05.90 - THYROTOXICOSIS, UNSP WITHOUT THYROTOXIC CRISIS OR STORM (8) V-tach Current Visit: Yes Status: Acute Assessment & Plan: - episodes, non-sustained - amiodarone gtt - ICU - awaiting transfer to higher level of care VTE: Lovenox PPI: protonix Next of KIN: none D/C plan: when bed open Code status: Full Code(s): I47.20 - VENTRICULAR TACHYCARDIA, UNSPECIFIED
[2023-05-13] MEDS: Ativan 2 MG/1 ML VIAL IV ONE (21:56)
[2023-05-13] MEDS: Ambien 10 MG PO PRN (22:03)
[2023-05-13] MEDS: ZOCOR 20MG PO SCH (23:05)
[2023-05-14] MEDS: Ativan 2 MG/1 ML VIAL IV PRN (02:16)
[2023-05-14 05:45] LABS: ANION GAP 7.9 MEQ/L (5-15); BILIRUBIN,TOTAL 0.5 mg/dL (0.2-1.3); Calcium 8.7 mg/dL (8.4-10.2); Creatinine 1 1.29 mg/dL (0.66-1.25); EST GLOMERULAR FILTRATION RATE 60.8 ML/MIN; Potassium 4.3 mmol/L (3.5-5.1); Total Protein 7.1 g/dL (6.3-8.2)
[2023-05-14 05:47] LABS: Hematocrit 49.8 % (42-50); Mean Cell Volume 94.5 fL (78-100); Mean Corpuscular Hemoglobin 30.4 pg (26-32); Mean Corpuscular Hgb Concent. 32.1 g/dL (32-36); Mean Platelet Volume 10.3 fL (7.5-11.0); Platelet Count 425 x10^3/uL (150-450); Red Blood Count 5.27 x10^6/uL (4.1-5.6); Red Cell Distribution Width 13.5 % (11.5-14.0); White Blood Count 13.1 x10^3/uL (4.0-10.5)
[2023-05-14] MEDS: Cordarone 200 MG PO SCH (09:54)
[2023-05-14] MEDS: ENOXAPARIN SODIUM SQ SCH (13:45)
--- NOTE | 2023-05-14 14:31 | ECHO ---
Transthoracic echocardiographic examination and color Doppler was done on 05/13/2023. INDICATION: Shortness of breath. IMPRESSION: 1) GLOBAL LEFT VENTRICULAR HYPOKINESIA WITH EJECTION FRACTION BETWEEN 30 TO 35%. 2) MILDLY DILATED LEFT VENTRICLE. 3) TRACE TRICUSPID REGURGITATION. RIGHT VENTRICULAR SYSTOLIC PRESSURE OF 21 MM OF MERCURY. 4) MILD MITRAL REGURGITATION. 5) LEFT VENTRICULAR DIASTOLIC DYSFUNCTION. 6) LEFT VENTRICULAR HYPERTROPHY. The left ventricle is visualized and demonstrated global-type of hypokinesia with global ejection fraction between 30 to 35%. The left ventricle is mildly dilated. There is mild left ventricular hypertrophy. The mitral valve is mildly thickened but opens adequately. There is mild mitral regurgitation. Left atrium is not enlarged. Tissue Doppler study of the lateral mitral annulus suggestive of left ventricular diastolic dysfunction. The aortic valve is mildly thickened. The right side chambers are normal. There is trace tricuspid regurgitation. The right ventricular systolic pressure of 21 mm of Mercury.
--- NOTE | 2023-05-14 15:58 | PCM.NOTE ---
Date and Time: 05/14/23 1549 Subjective Assessment: 05/12/23 is a 67 year old male with PMHX of asthma, COPD (on 3-4 L PRN), and spleen removed several years ago. He presented in the ER with increasing shortness of breath since last night with some chest discomfort all over. Patient reports weak fatigued tired and feeling of dehydration. Denies any cough or sick contact. No fever but did have some chills last night. Patient is supposed to be on some cardiac medications but has not been taking it for a long time. Not a good historian and history is limited. In ER pt was having multiple PVCs, bigeminy and couplets without any ST elevations. He is given fluid bolus along with IV magnesium. Patient workup showed normal white count, fairly unremarkable chemistries except for low TSH which could be the reason for these bigeminy's. Patient has seen tack puller machine Dr. Portillo before but does not take any medications. ER MD spoke with tack puller machine and he has compared EKG with previous EKG in his office and he did not think it is much different. He recommended patient to be started on metoprolol 50 mg XL daily, lisinopril 10 mg, Lipitor 20 mg and patient is given a dose of IV Lopressor 2.5 mg. Patient is feeling minimal improvement but still have PVCs. Also cardiology recommended obtaining CTA coronaries for further evaluation of CAD. Patient initial troponins are negative. Lactate is 3.9 but no obvious focus of infection, cultures are pending. Patient also has a negative COVID flu and RSV. On admission pt continues to c/o SOB D-Dimer 0.78, CTA ordered for further eval. He smells of a strong odor, UA with C&S ordered as well as ammonia. He has some chest discomfort, SOB, denies abd. pain, N/V/D. 05/13/23 Pt resting in bed. He was moved to ICU overnight for episodes of v-tach and bigemy PVC's. He was placed on an amiodarone gtt. He continues to have the same irregular rhythms. UDS was + for meth. Discussed with pt and he feels he needs help OP. He denies suicidal or homicidal thoughts. He states he has not bee taking his meds as he does not have time to pick them up. He reported he does not work. He just does not have time. Ceftriaxone started for UTI. Transfer to a higher level of care d/t continued abnormal rhythms, on amiodarone gtt, and overnight CP. Pt's tack puller machine is at [facility]. He denies Abd pain, N/V/D. 05/14/23 Pt resting in bed in ICU. He had no overnight events of v-tach. Apparently overnight pt became combative and hallucinating. Security is now outside of room due to his bizarre behavior. CIWA protocol started. Ativan has made him sleepy. He continues to have bigeminy and trigeminy PVC's. His HR this morning dropped into 40's and 50's. Amiodarone gtt stopped and changed to oral. Metoprolol stopped, will restart metoprolol at a lower dose as rate has increased to 70's. He got up out of bed this afternoon and urinated all over the floor. He is still awaiting transfer to a higher level of care and there is a 2 date wait on an ICU bed at [facility]. Echo read by Dr. Portillo and EJ is 30-35%. - Review of Systems Constitutional: No Fever, No Chills Eyes: No Symptoms Ears, Nose, & Throat: No Symptoms Respiratory: No Cough, No Short Of Breath Cardiac: No Chest Pain, No Edema, No Syncope Abdominal/Gastrointestinal: No Abdominal Pain, No Nausea, No Vomiting, No Diarrhea Genitourinary Symptoms: No Dysuria Musculoskeletal: No Back Pain, No Neck Pain Skin: No Rash Neurological: No Dizziness, No Focal Weakness, No Sensory Changes Psychological: No Symptoms, Hallucinations, Mood Changes Endocrine: No Symptoms Hematologic/Lymphatic: No Symptoms Immunological/Allergic: No Symptoms Objective Exam General Appearance: no apparent distress, alert, lethargy Neurologic Exam: alert, oriented x 3, cooperative, normal mood/affect, nml cerebellar function, sensation nml, No motor deficits Skin Exam: normal color, warm, dry Eye Exam: PERRL, EOMI, eyes nml inspection Ears, Nose, Throat Exam: normal ENT inspection, pharynx normal, moist mucous membranes Neck Exam: normal inspection, non-tender, supple, full range of motion Respiratory Exam: normal breath sounds, lungs clear, No respiratory distress Cardiovascular Exam: irregular Gastrointestinal/Abdomen Exam: soft, No tenderness, No mass Extremity Exam: normal inspection, normal range of motion Back Exam: normal inspection, normal range of motion, No CVA tenderness, No vertebral tenderness Male Genitalia Exam: deferred Rectal Exam: deferred OBJECTIVE DATA Vital Signs: Vital Signs - 24 hr Temp Pulse Resp BP BP BP Pulse Ox 05/14/23 15:00 73 22 133/97 97 05/14/23 14:00 68 20 138/74 05/14/23 13:00 79 10 L 114/94 05/14/23 12:00 98.2 F 78 22 112/76 05/14/23 11:00 68 21 128/90 97 05/14/23 10:00 77 21 142/95 100 05/14/23 09:00 135/84 05/14/23 07:59 71 05/14/23 07:56 97.3 F 72 28 H 131/92 98 05/14/23 06:38 55 L 20 149/94 96 05/14/23 05:26 96.8 F 48 L 18 125/92 96 05/14/23 05:05 60 18 94 L 05/14/23 04:44 75 22 117/95 05/14/23 04:33 61 18 117/95 99 05/14/23 03:35 68 22 106/72 97 05/14/23 02:47 71 24 108/69 97 05/14/23 02:16 76 20 156/102 05/14/23 02:00 76 20 156/102 97 05/14/23 00:53 76 20 151/110 94 L 05/14/23 00:00 98 H 17 141/98 95 05/13/23 23:02 71 17 132/83 94 L 05/13/23 22:41 66 17 131/78 95 05/13/23 22:00 68 19 96 05/13/23 21:56 69 20 05/13/23 21:30 68 18 96 05/13/23 21:00 97.8 F 75 24 126/89 97 05/13/23 20:30 60 22 107/79 96 05/13/23 20:00 70 05/13/23 19:30 63 18 101/56 96 05/13/23 19:00 63 17 127/73 05/13/23 18:30 80 22 130/78 05/13/23 18:00 62 15 126/80 96 05/13/23 17:30 72 21 144/91 94 L 05/13/23 17:19 68 20 97 05/13/23 17:00 72 22 129/88 98 05/13/23 16:30 71 19 133/97 05/13/23 16:00 98.0 F 78 21 92/51 97 Pain Assessment - Last Documented Pain Intensity 4 Pain Scale Used 0-10 Pain Scale Intake and Output: Intake & Output 05/12/23 05/13/23 05/14/23 05/15/23 11:59 11:59 11:59 11:59 Intake Total 600 1419 Output Total 200 100 Balance 400 1319 Weight 96.2 kg 96.2 kg Lab Results: Lab Results-Last 24 Hours 05/14/23 05/14/23 Range/Units 05:15 05:15 WBC 13.1 H (4.0-10.5) x10^3/uL RBC 5.27 (4.1-5.6) x10^6/uL Hgb 16.0 (12.5-18.0) g/dL Hct 49.8 (42-50) % MCV 94.5 (78-100) fL MCH 30.4 (26-32) pg MCHC 32.1 (32-36) g/dL RDW 13.5 (11.5-14.0) % Plt Count 425 (150-450) x10^3/uL MPV 10.3 (7.5-11.0) fL Sodium 137 (137-145) mmol/L Potassium 4.3 (3.5-5.1) mmol/L Chloride 105 (98-107) mmol/L Carbon Dioxide 29 (22-30) mmol/L Anion Gap 7.9 (5-15) MEQ/L BUN 16 (9-20) mg/dL Creatinine 1.29 H (0.66-1.25) mg/dL Estimated GFR 60.8 ML/MIN Glucose 112 H (74-106) mg/dL Calcium 8.7 (8.4-10.2) mg/dL Total Bilirubin 0.50 (0.2-1.3) mg/dL AST 23 (17-59) U/L ALT 21 (0-50) U/L Alkaline Phosphatase 63 (38-126) U/L Serum Total Protein 7.1 (6.3-8.2) g/dL Albumin 4.0 (3.5-5.0) g/dL Radiology Exams: Radiology Procedures Category Date Time Status CHEST WITH CONTRAST [CT] Stat Exams 05/12/23 18:51 Completed ECHO W/2D AND DOPPLER [US] Stat Exams 05/13/23 08:00 Draft Multi-Disciplinary Progress Notes: Multi-Disciplinary Progress Notes 05/14/23 12:39 Case Management Note by Elaina Kessler Addendum entered by Elaina Kessler 05/14/23 12:50: PATIENT ALSO VERY AGITATED WHEN AWAKE AND RESTLESS- SECURITY AT BEDSIDE -DID NOT DISTURB AT THIS TIME. Original Note: PATIENT STILL WAITING ON BED AT HIGHER LEVEL - WILL CONTINUE TO DEFER DC PLANNING AT THIS TIME Initialized on 05/14/23 12:39 - END OF NOTE 05/13/23 17:48 Case Management Note by Elaina Kessler CASE MANAGEMENT/DC PLANNING DEFERRED AT THIS TIME- PATIENT WAITING FOR TRANSFER TO HIGHER LEVEL OF CARE AT THIS TIME Initialized on 05/13/23 17:48 - END OF NOTE Assessment/Plan (1) Chest pain Current Visit: No Status: Acute Qualifiers: Chest pain type: unspecified Qualified Code(s): R07.9 - Chest pain, unspecified Assessment & Plan: - Trop all negative - Per cardiology metoprolol XL 50mg daily, lisinopril, Zocor, and lasix - tele - echo- EF 42% per energy conservation technician- awaiting offical read by cardilogy - hx meth drug use- UDS - ASA 324mg once in ER - Start ASA 81 mg daily 05/14/23 - Stop amiodarone gtt, started oral - Stopped metoprolol - this afternoon restarted at 25mg - Echo 05/14 IMPRESSION: 1) GLOBAL LEFT VENTRICULAR HYPOKINESIA WITH EJECTION FRACTION BETWEEN 30 TO 35%. 2) MILDLY DILATED LEFT VENTRICLE. 3) TRACE TRICUSPID REGURGITATION. RIGHT VENTRICULAR SYSTOLIC PRESSURE OF 21 MM OF MERCURY. 4) MILD MITRAL REGURGITATION. 5) LEFT VENTRICULAR DIASTOLIC DYSFUNCTION. 6) LEFT VENTRICULAR HYPERTROPHY. The left ventricle is visualized and demonstrated global-type of hypokinesia with global ejection fraction between 30 to 35%. The left ventricle is mildly dilated. There is mild left ventricular hypertrophy. The mitral valve is mildly thickened but opens adequately. There is mild mitral regurgitation. Left atrium is not enlarged. Tissue Doppler study of the lateral mitral annulus suggestive of left ventricular diastolic dysfunction. The aortic valve is mildly thickened. The right side chambers are normal. There is trace tricuspid regurgitation. The right ventricular systolic pressure of 21 mm of Mercury. Code(s): R07.9 - CHEST PAIN, UNSPECIFIED (2) Non-compliance Current Visit: Yes Status: Acute Assessment & Plan: - hx of non-compliance, not taking home meds as prescribed Code(s): Z91.199 - PT NONCOMPL WITH OTHER MED TRTMT AND REGIMEN D/T UNSP REASON (3) Bigeminy Current Visit: Yes Status: Acute Assessment & Plan: - as seen on EKG and tele - see above CP plan 05/14 - transitioning from bigeminy to trigeminy PVC's - See above CP plan Code(s): I49.8 - OTHER SPECIFIED CARDIAC ARRHYTHMIAS (4) Bradycardia Current Visit: Yes Status: Resolved Assessment & Plan: - CIWA started last night d/t meth withdrawl and multiple Ativan dose gave - Pt was an Amiodarone gtt and this was stopped and PO started - metoprolol stopped - HR increased in 70's then Metoprolol 25mg (lower dose) started - resolved Code(s): R00.1 - BRADYCARDIA, UNSPECIFIED (5) Dyspnea, unspecified Current Visit: Yes Status: Acute Assessment & Plan: - r/t abnormal heart rhythm or drug use - Chest CTA- Impression: 1. Continued negative pulmonary embolus. No new/acute cardiopulmonary abnormalities. 2. Again chronic findings including pulmonary emphysema, pulmonary fibrosis/scarring, arteriosclerotic disease, chronic bony findings, left renal cyst, and old granulomatous disease. - CXR 05/12 Portable apical lordotic chest unchanged again hyperinflated and clear with a few incidental right lung calcified granulomas. Heart not enlarged. Bony thorax intact again with osteopenia, mild degenerative changes, and old left 6 rib fracture. No new/acute findings - D-Dimer 0.78 - RA 94% 05/14 - 4LNC 97% Code(s): R06.00 - DYSPNEA, UNSPECIFIED (6) Hypertension Current Visit: No Status: Chronic Qualifiers: Hypertension type: unspecified Qualified Code(s): I10 - Essential (primary) hypertension Assessment & Plan: - Started metoprolol and lisinopril - Monitor 05/14 - stable - decreased metoprolol Code(s): I10 - ESSENTIAL (PRIMARY) HYPERTENSION (7) Hyperthyroidism Current Visit: Yes Status: Acute Assessment & Plan: -TSH 0.392 Code(s): E05.90 - THYROTOXICOSIS, UNSP WITHOUT THYROTOXIC CRISIS OR STORM (8) V-tach Current Visit: Yes Status: Acute Assessment & Plan: - episodes, non-sustained - amiodarone gtt - ICU - awaiting transfer to higher level of care 05/14 - no overnight events- resolved Code(s): I47.20 - VENTRICULAR TACHYCARDIA, UNSPECIFIED (9) Amphetamine use Current Visit: No Status: Acute Assessment & Plan: - history of use - denies IV use - he reports he is unsure of any recent smoking use. - UDS+ for meth 05/14 - CIWA - + withdrawals Code(s): F15.90 - OTHER STIMULANT USE, UNSPECIFIED, UNCOMPLICATED (10) Hallucination Current Visit: Yes Status: Acute Assessment & Plan: - 2/2 Meth withdrawal - CIWA- ativan Code(s): R44.3 - HALLUCINATIONS, UNSPECIFIED (11) Combative behavior Current Visit: Yes Status: Acute Assessment & Plan: - 2/2 Meth withdrawal - CIWA- ativan VTE: Lovenox PPI: protonix Next of KIN: none D/C plan: when bed open at [facility] Code status: Full Code(s): R46.89 - OTHER SYMPTOMS AND SIGNS INVOLVING APPEARANCE AND BEHAVIOR
[2023-05-15 08:08] LABS: Hematocrit 49.5 % (42-50); Hemoglobin 16.1 g/dL (12.5-18.0); Mean Cell Volume 93.8 fL (78-100); Mean Corpuscular Hemoglobin 30.5 pg (26-32); Mean Corpuscular Hgb Concent. 32.5 g/dL (32-36); Platelet Count 403 x10^3/uL (150-450); Red Blood Count 5.28 x10^6/uL (4.1-5.6); Red Cell Distribution Width 13.1 % (11.5-14.0); White Blood Count 9.8 x10^3/uL (4.0-10.5)
[2023-05-15 08:29] LABS: ALBUMIN 3.8 g/dL (3.5-5.0); ANION GAP 8.3 MEQ/L (5-15); BILIRUBIN,TOTAL 0.9 mg/dL (0.2-1.3); Calcium 8.6 mg/dL (8.4-10.2); Creatinine 1 1.13 mg/dL (0.66-1.25); EST GLOMERULAR FILTRATION RATE 71.2 ML/MIN; Potassium 3.6 mmol/L (3.5-5.1); Total Protein 6.9 g/dL (6.3-8.2)
[2023-05-15] MEDS: Toprol-Xl 25MG Tablets PO SCH (11:09)
[2023-05-15] MEDS: Cordarone 200 MG PO SCH (11:09)
--- NOTE | 2023-05-15 11:21 | PCM.NOTE ---
Date and Time: 05/15/23 1103 Subjective Assessment: 05/12/23 is a 67 year old male with PMHX of asthma, COPD (on 3-4 L PRN), and spleen removed several years ago. He presented in the ER with increasing shortness of breath since last night with some chest discomfort all over. Patient reports weak fatigued tired and feeling of dehydration. Denies any cough or sick contact. No fever but did have some chills last night. Patient is supposed to be on some cardiac medications but has not been taking it for a long time. Not a good historian and history is limited. In ER pt was having multiple PVCs, bigeminy and couplets without any ST elevations. He is given fluid bolus along with IV magnesium. Patient workup showed normal white count, fairly unremarkable chemistries except for low TSH which could be the reason for these bigeminy's. Patient has seen assistant women's rowing coach Dr. Portillo before but does not take any medications. ER MD spoke with assistant women's rowing coach and he has compared EKG with previous EKG in his office and he did not think it is much different. He recommended patient to be started on metoprolol 50 mg XL daily, lisinopril 10 mg, Lipitor 20 mg and patient is given a dose of IV Lopressor 2.5 mg. Patient is feeling minimal improvement but still have PVCs. Also cardiology recommended obtaining CTA coronaries for further evaluation of CAD. Patient initial troponins are negative. Lactate is 3.9 but no obvious focus of infection, cultures are pending. Patient also has a negative COVID flu and RSV. On admission pt continues to c/o SOB D-Dimer 0.78, CTA ordered for further eval. He smells of a strong odor, UA with C&S ordered as well as ammonia. He has some chest discomfort, SOB, denies abd. pain, N/V/D. 05/13/23 Pt resting in bed. He was moved to ICU overnight for episodes of v-tach and bigemy PVC's. He was placed on an amiodarone gtt. He continues to have the same irregular rhythms. UDS was + for meth. Discussed with pt and he feels he needs help OP. He denies suicidal or homicidal thoughts. He states he has not bee taking his meds as he does not have time to pick them up. He reported he does not work. He just does not have time. Ceftriaxone started for UTI. Transfer to a higher level of care d/t continued abnormal rhythms, on amiodarone gtt, and overnight CP. Pt's assistant women's rowing coach is at [facility]. He denies Abd pain, N/V/D. 05/14/23 Pt resting in bed in ICU. He had no overnight events of v-tach. Apparently overnight pt became combative and hallucinating. Security is now outside of room due to his bizarre behavior. CIWA protocol started. Ativan has made him sleepy. He continues to have bigeminy and trigeminy PVC's. His HR this morning dropped into 40's and 50's. Amiodarone gtt stopped and changed to oral. Metoprolol stopped, will restart metoprolol at a lower dose as rate has increased to 70's. He got up out of bed this afternoon and urinated all over the floor. He is still awaiting transfer to a higher level of care and there is a 2 date wait on an ICU bed at [facility]. Echo read by Dr. Portillo and EJ is 30-35%. 05/15/23 Pt resting in bed. He is still pending tx to [facility]- awaiting a bed. July be Wednesday. He again had no overnight events of v-tach and HR is becoming more regular. He does intermittently have bigeminy PVC's. Will lower amiodarone to 200mg BID. He remains confused and has pulled out 2 IV's overnight. Labs look fine. He is eating and drinking well. IVF stopped. He deneis any concerns at this time. - Review of Systems Constitutional: No Fever, No Chills Eyes: No Symptoms Ears, Nose, & Throat: No Symptoms Respiratory: No Cough, No Short Of Breath Cardiac: No Chest Pain, No Edema, No Syncope Abdominal/Gastrointestinal: No Abdominal Pain, No Nausea, No Vomiting, No Diarrhea Genitourinary Symptoms: No Dysuria Musculoskeletal: No Back Pain, No Neck Pain Skin: No Rash Neurological: No Dizziness, No Focal Weakness, No Sensory Changes Psychological: No Symptoms, Emotional Lability (confusion), Other Endocrine: No Symptoms Hematologic/Lymphatic: No Symptoms Immunological/Allergic: No Symptoms Objective Exam General Appearance: no apparent distress, alert, lethargy Neurologic Exam: alert, oriented x 3, cooperative, normal mood/affect, nml cerebellar function, sensation nml, No motor deficits Skin Exam: normal color, warm, dry Eye Exam: PERRL, EOMI, eyes nml inspection Ears, Nose, Throat Exam: normal ENT inspection, pharynx normal, moist mucous membranes Neck Exam: normal inspection, non-tender, supple, full range of motion Respiratory Exam: normal breath sounds, lungs clear, No respiratory distress Cardiovascular Exam: normal heart sounds, irregular Gastrointestinal/Abdomen Exam: soft, No tenderness, No mass Extremity Exam: normal inspection, normal range of motion Back Exam: normal inspection, normal range of motion, No CVA tenderness, No vertebral tenderness Male Genitalia Exam: deferred Rectal Exam: deferred OBJECTIVE DATA Vital Signs: Vital Signs - 24 hr Temp Pulse Resp BP Pulse Ox 05/15/23 10:51 97.6 F 72 22 137/73 94 L 05/15/23 08:00 67 05/15/23 07:39 68 26 H 131/88 96 05/15/23 04:00 71 17 108/76 94 L 05/15/23 03:10 69 18 109/63 05/15/23 00:00 73 05/14/23 20:00 76 05/14/23 18:00 68 14 103/71 98 05/14/23 17:33 74 22 99 05/14/23 16:00 98.0 F 81 20 05/14/23 15:00 73 22 133/97 97 05/14/23 14:00 68 20 138/74 05/14/23 13:00 79 10 L 114/94 05/14/23 12:00 98.2 F 78 22 112/76 Pain Assessment - Last Documented Pain Intensity 0 Pain Scale Used 0-10 Pain Scale Intake and Output: Intake & Output 05/12/23 05/13/23 05/14/23 05/15/23 11:59 11:59 11:59 11:59 Intake Total 600 1419 120 Output Total 200 100 100 Balance 400 1319 20 Weight 96.2 kg 96.2 kg Lab Results: Lab Results-Last 24 Hours 05/15/23 05/15/23 Range/Units 08:00 08:00 WBC 9.8 (4.0-10.5) x10^3/uL RBC 5.28 (4.1-5.6) x10^6/uL Hgb 16.1 (12.5-18.0) g/dL Hct 49.5 (42-50) % MCV 93.8 (78-100) fL MCH 30.5 (26-32) pg MCHC 32.5 (32-36) g/dL RDW 13.1 (11.5-14.0) % Plt Count 403 (150-450) x10^3/uL MPV 10.0 (7.5-11.0) fL Sodium 139 (137-145) mmol/L Potassium 3.6 (3.5-5.1) mmol/L Chloride 109 H (98-107) mmol/L Carbon Dioxide 26 (22-30) mmol/L Anion Gap 8.3 (5-15) MEQ/L BUN 19 (9-20) mg/dL Creatinine 1.13 (0.66-1.25) mg/dL Estimated GFR 71.2 ML/MIN Glucose 104 (74-106) mg/dL Calcium 8.6 (8.4-10.2) mg/dL Total Bilirubin 0.90 (0.2-1.3) mg/dL AST 23 (17-59) U/L ALT 20 (0-50) U/L Alkaline Phosphatase 63 (38-126) U/L Serum Total Protein 6.9 (6.3-8.2) g/dL Albumin 3.8 (3.5-5.0) g/dL Multi-Disciplinary Progress Notes: Multi-Disciplinary Progress Notes 05/14/23 12:39 Case Management Note by Elaina Kessler Addendum entered by Elaina Kessler 05/14/23 12:50: PATIENT ALSO VERY AGITATED WHEN AWAKE AND RESTLESS- SECURITY AT BEDSIDE -DID NOT DISTURB AT THIS TIME. Original Note: PATIENT STILL WAITING ON BED AT HIGHER LEVEL - WILL CONTINUE TO DEFER DC PLANNING AT THIS TIME Initialized on 05/14/23 12:39 - END OF NOTE Assessment/Plan (1) Chest pain Current Visit: No Status: Acute Qualifiers: Chest pain type: unspecified Qualified Code(s): R07.9 - Chest pain, unspecified Code(s): R07.9 - CHEST PAIN, UNSPECIFIED (2) Non-compliance Current Visit: Yes Status: Acute Code(s): Z91.199 - PT NONCOMPL WITH OTHER MED TRTMT AND REGIMEN D/T UNSP REASON (3) Bigeminy Current Visit: Yes Status: Acute Code(s): I49.8 - OTHER SPECIFIED CARDIAC ARRHYTHMIAS (4) Bradycardia Current Visit: Yes Status: Resolved Code(s): R00.1 - BRADYCARDIA, UNSPECIFI ED (5) Dyspnea, unspecified Current Visit: Yes Status: Acute Code(s): R06.00 - DYSPNEA, UNSPECIFIED (6) Hypertension Current Visit: No Status: Chronic Qualifiers: Hypertension type: unspecified Qualified Code(s): I10 - Essential (primary) hypertension Code(s): I10 - ESSENTIAL (PRIMARY) HYPERTENSION (7) Hyperthyroidism Current Visit: Yes Status: Acute Code(s): E05.90 - THYROTOXICOSIS, UNSP WITHOUT THYROTOXIC CRISIS OR STORM (8) V-tach Current Visit: Yes Status: Acute Code(s): I47.20 - VENTRICULAR TACHYCARDIA, UNSPECIFIED (9) Amphetamine use Current Visit: No Status: Acute Code(s): F15.90 - OTHER STIMULANT USE, UNSPECIFIED, UNCOMPLICATED (10) Hallucination Current Visit: Yes Status: Acute Code(s): R44.3 - HALLUCINATIONS, UNSPECIFIED (11) Combative behavior Current Visit: Yes Status: Acute Assessment & Plan: (1) Chest pain Current Visit: No Status: Acute Qualifiers: Chest pain type: unspecified Qualified Code(s): R07.9 - Chest pain, unspecified Assessment & Plan: - Trop all negative - Per cardiology metoprolol XL 50mg daily, lisinopril, Zocor, and lasix - tele - echo- EF 42% per senior technical project manager- awaiting offical read by cardilogy - hx meth drug use- UDS - ASA 324mg once in ER - Start ASA 81 mg daily 05/14/23 - Stop amiodarone gtt, started oral - Stopped metoprolol - this afternoon restarted at 25mg - Echo 05/14 IMPRESSION: 1) GLOBAL LEFT VENTRICULAR HYPOKINESIA WITH EJECTION FRACTION BETWEEN 30 TO 35%. 2) MILDLY DILATED LEFT VENTRICLE. 3) TRACE TRICUSPID REGURGITATION. RIGHT VENTRICULAR SYSTOLIC PRESSURE OF 21 MM OF MERCURY. 4) MILD MITRAL REGURGITATION. 5) LEFT VENTRICULAR DIASTOLIC DYSFUNCTION. 6) LEFT VENTRICULAR HYPERTROPHY. The left ventricle is visualized and demonstrated global-type of hypokinesia with global ejection fraction between 30 to 35%. The left ventricle is mildly dilated. There is mild left ventricular hypertrophy. The mitral valve is mildly thickened but opens adequately. There is mild mitral regurgitation. Left atrium is not enlarged. Tissue Doppler study of the lateral mitral annulus suggestive of left ventricular diastolic dysfunction. The aortic valve is mildly thickened. The right side chambers are normal. There is trace tricuspid regurgitation. The right ventricular systolic pressure of 21 mm of Mercury. 05/15 - No overnight c/o CP - IVF stopped Code(s): R07.9 - CHEST PAIN, UNSPECIFIED (2) Non-compliance Current Visit: Yes Status: Acute Assessment & Plan: - hx of non-compliance, not taking home meds as prescribed Code(s): Z91.199 - PT NONCOMPL WITH OTHER MED TRTMT AND REGIMEN D/T UNSP REASON (3) Bigeminy Current Visit: Yes Status: Acute Assessment & Plan: - as seen on EKG and tele - see above CP plan 05/14 - transitioning from bigeminy to trigeminy PVC's - See above CP plan 05/15 - continued intermittently, has improved- not as often - reduce amiodarone Code(s): I49.8 - OTHER SPECIFIED CARDIAC ARRHYTHMIAS (4) Bradycardia Current Visit: Yes Status: Resolved Assessment & Plan: - CIWA started last night d/t meth withdrawl and multiple Ativan dose gave - Pt was an Amiodarone gtt and this was stopped and PO started - metoprolol stopped - HR increased in 70's then Metoprolol 25mg (lower dose) started - resolved Code(s): R00.1 - BRADYCARDIA, UNSPECIFIED (5) Dyspnea, unspecified Current Visit: Yes Status: Acute Assessment & Plan: - r/t abnormal heart rhythm or drug use - Chest CTA- Impression: 1. Continued negative pulmonary embolus. No new/acute cardiopulmonary abnormalities. 2. Again chronic findings including pulmonary emphysema, pulmonary fibrosis/scarring, arteriosclerotic disease, chronic bony findings, left renal cyst, and old granulomatous disease. - CXR 05/12 Portable apical lordotic chest unchanged again hyperinflated and clear with a few incidental right lung calcified granulomas. Heart not enlarged. Bony thorax intact again with osteopenia, mild degenerative changes, and old left 6 rib fracture. No new/acute findings - D-Dimer 0.78 - RA 94% 05/14 - 4LNC 97% 05/15 - RA 94% - intermittent need for O2, Keep O2 > 92% Code(s): R06.00 - DYSPNEA, UNSPECIFIED (6) Hypertension Current Visit: No Status: Chronic Qualifiers: Hypertension type: unspecified Qualified Code(s): I10 - Essential (primary) hypertension Assessment & Plan: - Started metoprolol and lisinopril - Monitor 05/14 - stable - decreased metoprolol Code(s): I10 - ESSENTIAL (PRIMARY) HYPERTENSION (7) Hyperthyroidism Current Visit: Yes Status: Acute Assessment & Plan: -TSH 0.392 - F/U OP with endocrinology Code(s): E05.90 - THYROTOXICOSIS, UNSP WITHOUT THYROTOXIC CRISIS OR STORM (8) V-tach Current Visit: Yes Status: Acute Assessment & Plan: - episodes, non-sustained - amiodarone gtt - ICU - awaiting transfer to higher level of care 05/14 - no overnight events- resolved Code(s): I47.20 - VENTRICULAR TACHYCARDIA, UNSPECIFIED (9) Amphetamine use Current Visit: No Status: Acute Assessment & Plan: - history of use - denies IV use - he reports he is unsure of any recent smoking use. - UDS+ for meth 05/14 - CIWA- ativan - no hx of ETOH use - + withdrawals of meth 05/15 - When more awake and alert would benefit from psych consult as pt had repeated admissions for this. - Continued confusion pulling out IV'S. Code(s): F15.90 - OTHER STIMULANT USE, UNSPECIFIED, UNCOMPLICATED (10) Hallucination Current Visit: Yes Status: Acute Assessment & Plan: - 2/2 Meth withdrawal - CIWA- ativan Code(s): R44.3 - HALLUCINATIONS, UNSPECIFIED (11) Combative behavior Current Visit: Yes Status: Acute Assessment & Plan: - 2/2 Meth withdrawal - CIWA- ativan VTE: Lovenox PPI: protonix Next of KIN: none D/C plan: when bed open at [facility] Code status: Full Code(s): R46.89 - OTHER SYMPTOMS AND SIGNS INVOLVING APPEARANCE AND BEHAVIOR Code(s): R46.89 - OTHER SYMPTOMS AND SIGNS INVOLVING APPEARANCE AND BEHAVIOR
[2023-05-16 06:27] LABS: Hematocrit 50.2 % (42-50); Hemoglobin 16.3 g/dL (12.5-18.0); Mean Cell Volume 92.3 fL (78-100); Mean Corpuscular Hgb Concent. 32.5 g/dL (32-36); Mean Platelet Volume 10.2 fL (7.5-11.0); Platelet Count 430 x10^3/uL (150-450); Red Blood Count 5.44 x10^6/uL (4.1-5.6); Red Cell Distribution Width 13.1 % (11.5-14.0); White Blood Count 10.7 x10^3/uL (4.0-10.5)
[2023-05-16 06:46] LABS: ANION GAP 10.2 MEQ/L (5-15); BILIRUBIN,TOTAL 1.1 mg/dL (0.2-1.3); Calcium 8.6 mg/dL (8.4-10.2); Creatinine 1 1.22 mg/dL (0.66-1.25); Potassium 3.5 mmol/L (3.5-5.1); Total Protein 7.2 g/dL (6.3-8.2)
--- NOTE | 2023-05-16 11:50 | PCM.DS ---
Discharge Summary Date of Admission: 05/12/23 17:41 Date of Discharge: 05/16/23 Admitting Physician: MALKA TOMAS MD Consults: Consults on Case 05/13/23 01:44 Cardiology Consult [Notify Gas Reverser of Admit] ROUTINE Primary Care Provider: STEWART KENDALL MD Allergies Allergies Penicillins Allergy (Verified 01/19/23 20:43) Hospital Summary - Hospital Course Hospital Course: 05/12/23 is a 67 year old male with PMHX of asthma, COPD (on 3-4 L PRN), and spleen removed several years ago. He presented in the ER with increasing shortness of breath since last night with some chest discomfort all over. Patient reports weak fatigued tired and feeling of dehydration. Denies any cough or sick contact. No fever but did have some chills last night. Patient is supposed to be on some cardiac medications but has not been taking it for a long time. Not a good historian and history is limited. In ER pt was having multiple PVCs, bigeminy and couplets without any ST elevations. He is given fluid bolus along with IV magnesium. Patient workup showed normal white count, fairly unremarkable chemistries except for low TSH which could be the reason for these bigeminy's. Patient has seen physics department chair Dr. Portillo before but does not take any medications. ER MD spoke with physics department chair and he has compared EKG with previous EKG in his office and he did not think it is much different. He recommended patient to be started on metoprolol 50 mg XL daily, lisinopril 10 mg, Lipitor 20 mg and patient is given a dose of IV Lopressor 2.5 mg. Patient is feeling minimal improvement but still have PVCs. Also cardiology recommended obtaining CTA coronaries for further evaluation of CAD. Patient initial troponins are negative. Lactate is 3.9 but no obvious focus of infection, cult ures are pending. Patient also has a negative COVID flu and RSV. On admission pt continues to c/o SOB D-Dimer 0.78, CTA ordered for further eval. He smells of a strong odor, UA with C&S ordered as well as ammonia. He has some chest discomfort, SOB, denies abd. pain, N/V/D. 05/13/23 Pt resting in bed. He was moved to ICU overnight for episodes of v-tach and bigemy PVC's. He was placed on an amiodarone gtt. He continues to have the same irregular rhythms. UDS was + for meth. Discussed with pt and he feels he needs help OP. He denies suicidal or homicidal thoughts. He states he has not bee daniel ing his meds as he does not have time to pick them up. He reported he does not work. He just does not have time. Ceftriaxone started for UTI. Transfer to a higher level of care d/t continued abnormal rhythms, on amiodarone gtt, and overnight CP. Pt's physics department chair is at [facility]. He denies Abd pain, N/V/D. 05/14/23 Pt resting in bed in ICU. He had no overnight events of v-tach. Apparently overnight pt became combative and hallucinating. Security is now outside of room due to his bizarre behavior. CIWA protocol started. Ativan has made him sleepy. He continues to have bigeminy and trigeminy PVC's. His HR this morning dropped into 40's and 50's. Amiodarone gtt stopped and changed to oral. Metoprolol stopped, will restart metoprolol at a lower dose as rate has increased to 70's. He got up out of bed this afternoon and urinated all over the floor. He is still awaiting transfer to a higher level of care and there is a 2 date wait on an ICU bed at [facility]. Echo read by Dr. Portillo and EJ is 30-35%. 05/15/23 Pt resting in bed. He is still pending tx to [facility]- awaiting a bed. May be Wednesday. He again had no overnight events of v-tach and HR is becoming more regular. He does intermittently have bigeminy PVC's. Will lower amiodarone to 200mg BID. He remains confused and has pulled out 2 IV's overnight. Labs look fine. He is eating and drinking well. IVF stopped. He deneis any concerns at this time. 05/16/23 Pt resting in bed. This morning he was extremely agitated and no ativan over night had been given. He did eat all his breakfast and then was given ativan and rested. He no longer meets ICU criteria. Can tx to med surg bed. Called [facility] and they do have beds on [facility] ( ICU step down cardiac unit) and are willing to accept the pt today. He continues to have intermittent bigeminy PVC's. He had no overnight events of v-tach. Will continue on same meds today for BP and HR. BC x2 negative. UA reordered due to contaminant. Continue CIWA for withdrawl. He deneis any concerns at this time. - Vitals & Intake/Output Vital Signs: Vital Signs Temperature 97.1 F 05/16/23 07:40 Pulse Rate 68 05/16/23 08:01 Respiratory Rate 18 05/16/23 08:01 Blood Pressure 143/85 05/16/23 08:01 O2 Sat by Pulse Oximetry 96 05/16/23 07:40 Intake & Output: Intake & Output 05/13/23 05/14/23 05/15/23 05/16/23 11:59 11:59 11:59 11:59 Intake Total 600 9372 128 5642 Output Total 200 100 300 400 Balance 400 1319 60 1759 Weight 96.2 kg - Lab Result Diagrams: 05/16/23 06:25 05/16/23 06:25 Lab Results-Last 24 Hrs: Lab Results-Last 24 Hours 05/16/23 05/16/23 05/16/23 Range/Units 06:25 06:25 Unknown WBC 10.7 H (4.0-10.5) x10^3/uL RBC 5.44 (4.1-5.6) x10^6/uL Hgb 16.3 (12.5-18.0) g/dL Hct 50.2 H (42-50) % MCV 92.3 (78-100) fL MCH 30.0 (26-32) pg MCHC 32.5 (32-36) g/dL RDW 13.1 (11.5-14.0) % Plt Count 430 (150-450) x10^3/uL MPV 10.2 (7.5-11.0) fL Sodium 138 (137-145) mmol/L Potassium 3.5 (3.5-5.1) mmol/L Chloride 108 H (98-107) mmol/L Carbon Dioxide 24 (22-30) mmol/L Anion Gap 10.2 (5-15) MEQ/L BUN 18 (9-20) mg/dL Creatinine 1.22 (0.66-1.25) mg/dL Estimated GFR 65.0 ML/MIN Glucose 120 H (74-106) mg/dL Calcium 8.6 (8.4-10.2) mg/dL Total Bilirubin 1.10 (0.2-1.3) mg/dL AST 21 (17-59) U/L ALT 19 (0-50) U/L Alkaline Phosphatase 65 (38-126) U/L Serum Total Protein 7.2 (6.3-8.2) g/dL Albumin 4.0 (3.5-5.0) g/dL Procalcitonin 0.047 (0.030-0.080) ng/mL Micro Results-Entire Visit: Microbiology 05/12/23 17:51 Urine Culture - Final Urine, Void POSSIBLE CONTAMINANT. CLINICAL JUDGEMENT REQUIRED. 05/12/23 12:03 Blood Culture - Preliminary Blood 05/12/23 11:58 Blood Culture - Preliminary Blood - Procedures and Test Procedures and Tests throughout Hospitalization: Therapy Orders & Screens 05/12/23 18:51 Oxygen Nasal Cannula 2 lpm Comment: Respiratory Therapy Consult ONCE Comment: Reason For Exam: 05/12/23 21:15 EKG ROUTINE Comment: Diagnosis: SOB, CP 05/12/23 23:40 Respiratory Therapy Assessment DAILY Comment: Diagnosis: SOB, CP Discharge Exam General Appearance: no apparent distress, alert Neurologic Exam: alert, normal mood/affect, nml cerebellar function, sensation nml, disoriented, confusion, agitation, uncooperative, No motor deficits Eye Exam: PERRL, EOMI, eyes nml inspection Ears, Nose, Throat Exam: normal ENT inspection, pharynx normal, moist mucous membranes Neck Exam: normal inspection, non-tender, supple, full range of motion Respiratory Exam: normal breath sounds, lungs clear, No respiratory distress Cardiovascular Exam: regular rate/rhythm, normal heart sounds Gastrointestinal/Abdomen Exam: soft, No tenderness, No mass Male Genitalia Exam: deferred Rectal Exam: deferred Back Exam: normal inspection, normal range of motion, No CVA tenderness, No vertebral tenderness Extremity Exam: normal inspection, normal range of motion Skin Exam: normal color, warm, dry Final Diagnosis/Problem List - Final Discharge Diagnosis/Problem (1) Chest pain Current Visit: No Status: Acute Code(s): R07.9 - CHEST PAIN, UNSPECIFIED (2) Non-compliance Current Visit: Yes Status: Acute Code(s): Z91.199 - PT NONCOMPL WITH OTHER MED TRTMT AND REGIMEN D/T UNSP REASON (3) Bigeminy Current Visit: Yes Status: Acute Code(s): I49.8 - OTHER SPECIFIED CARDIAC ARRHYTHMIAS (4) Bradycardia Current Visit: Yes Status: Resolved Code(s): R00.1 - BRADYCARDIA, UNSPECIFIED (5) Dyspnea, unspecified Current Visit: Yes Status: Acute Code(s): R06.00 - DYSPNEA, UNSPECIFIED (6) Hypertension Current Visit: No Status: Chronic Code(s): I10 - ESSENTIAL (PRIMARY) HYPERTENSION (7) Hyperthyroidism Current Visit: Yes Status: Acute Code(s): E05.90 - THYROTOXICOSIS, UNSP WITHOUT THYROTOXIC CRISIS OR STORM (8) V-tach Current Visit: Yes Status: Acute Code(s): I47.20 - VENTRICULAR TACHYCARDIA, UNSPECIFIED (9) Amphetamine use Current Visit: No Status: Acute Code(s): F15.90 - OTHER STIMULANT USE, UNSPECIFIED, UNCOMPLICATED (10) Hallucination Current Visit: Yes Status: Acute Code(s): R44.3 - HALLUCINATIONS, UNSPECIFIED (11) Combative behavior Current Visit: Yes Status: Acute Assessment & Plan: (1) Chest pain Current Visit: No Status: Acute Qualifiers: Chest pain type: unspecified Qualified Code(s): R07.9 - Chest pain, unspecified Assessment & Plan: - Trop all negative - Per cardiology metoprolol XL 50mg daily, lisinopril, Zocor, and lasix - tele - echo- EF 42% per husbandry technician- awaiting offical read by cardilogy - hx meth drug use- UDS - ASA 324mg once in ER - Start ASA 81 mg daily 05/14/23 - Stop amiodarone gtt, started oral - Stopped metoprolol - this afternoon restarted at 25mg - Echo 05/14 IMPRESSION: 1) GLOBAL LEFT VENTRICULAR HYPOKINESIA WITH EJECTION FRACTION BETWEEN 30 TO 35%. 2) MILDLY DILATED LEFT VENTRICLE. 3) TRACE TRICUSPID REGURGITATION. RIGHT VENTRICULAR SYSTOLIC PRESSURE OF 21 MM OF MERCURY. 4) MILD MITRAL REGURGITATION. 5) LEFT VENTRICULAR DIASTOLIC DYSFUNCTION. 6) LEFT VENTRICULAR HYPERTROPHY. The left ventricle is visualized and demonstrated global-type of hypokinesia with global ejection fraction between 30 to 35%. The left ventricle is mildly dilated. There is mild left ventricular hypertrophy. The mitral valve is mildly thickened but opens adequately. There is mild mitral regurgitation. Left atrium is not enlarged. Tissue Doppler study of the lateral mitral annulus suggestive of left ventricular diastolic dysfunction. The aortic valve is mildly thickened. The right side chambers are normal. There is trace tricuspid regurgitation. The right ventricular systolic pressure of 21 mm of Mercury. 05/15 - No overnight c/o CP - IVF stopped Code(s): R07.9 - CHEST PAIN, UNSPECIFIED (2) Non-compliance Current Visit: Yes Status: Acute Assessment & Plan: - hx of non-compliance, not taking home meds as prescribed Code(s): Z91.199 - PT NONCOMPL WITH OTHER MED TRTMT AND REGIMEN D/T UNSP REASON (3) Bigeminy Current Visit: Yes Status: Acute Assessment & Plan: - as seen on EKG and tele - see above CP plan 05/14 - transitioning from bigeminy to trigeminy PVC's - See above CP plan 05/15 - continued intermittently, has improved- not as often - reduce amiodarone 05/16 -Continued bigeminy Code(s): I49.8 - OTHER SPECIFIED CARDIAC ARRHYTHMIAS (4) Bradycardia Current Visit: Yes Status: Resolved Assessment & Plan: - CIWA started last night d/t meth withdrawl and multiple Ativan dose gave - Pt was an Amiodarone gtt and this was stopped and PO started - metoprolol stopped - HR increased in 70's then Metoprolol 25mg (lower dose) started - resolved Code(s): R00.1 - BRADYCARDIA, UNSPECIFIED (5) Dyspnea, unspecified Current Visit: Yes Status: Acute Assessment & Plan: - r/t abnormal heart rhythm or drug use - Chest CTA- Impression: 1. Continued negative pulmonary embolus. No new/acute cardiopulmonary abnormalities. 2. Again chronic findings including pulmonary emphysema, pulmonary fibrosis/scarring, arteriosclerotic disease, chronic bony findings, left renal cyst, and old granulomatous disease. - CXR 05/12 Portable apical lordotic chest unchanged again hyperinflated and clear with a few incidental right lung calcified granulomas. Heart not enlarged. Bony thorax intact again with osteopenia, mild degenerative changes, and old left 6 rib fracture. No new/acute findings - D-Dimer 0.78 - RA 94% 05/14 - 4LNC 97% 05/15 - RA 94% - intermittent need for O2, Keep O2 > 92% Code(s): R06.00 - DYSPNEA, UNSPECIFIED (6) Hypertension Current Visit: No Status: Chronic Qualifiers: Hypertension type: unspecified Qualified Code(s): I10 - Essential (primary) hypertension Assessment & Plan: - Started metoprolol and lisinopril - Monitor 05/14 - stable - decreased metoprolol 05/16 - stable Code(s): I10 - ESSENTIAL (PRIMARY) HYPERTENSION (7) Hyperthyroidism Current Visit: Yes Status: Acute Assessment & Plan: -TSH 0.392 - F/U OP with endocrinology OP Code(s): E05.90 - THYROTOXICOSIS, UNSP WITHOUT THYROTOXIC CRISIS OR STORM (8) V-tach Current Visit: Yes Status: Acute Assessment & Plan: - episodes, non-sustained - amiodarone gtt - ICU - awaiting transfer to higher level of care 05/14 - no overnight events- resolved Code(s): I47.20 - VENTRICULAR TACHYCARDIA, UNSPECIFIED (9) Amphetamine use Current Visit: No Status: Acute Assessment & Plan: - history of use - denies IV use - he reports he is unsure of any recent smoking use. - UDS+ for meth 05/14 - CIWA- ativan - no hx of ETOH use - + withdrawals of meth 05/15 - When more awake and alert would benefit from psych consult as pt had repeated admissions for this. - Continued confusion pulling out IV'S. 05/16 - Continued agitation and confusion with incontinence. - Continue ativan Code(s): F15.90 - OTHER STIMULANT USE, UNSPECIFIED, UNCOMPLICATED (10) Hallucination Current Visit: Yes Status: Acute Assessment & Plan: - 2/2 Meth withdrawal - CIWA- ativan Code(s): R44.3 - HALLUCINATIONS, UNSPECIFIED (11) Combative behavior Current Visit: Yes Status: Acute Assessment & Plan: - 2/2 Meth withdrawal - CIWA- ativan Code(s): R46.89 - OTHER SYMPTOMS AND SIGNS INVOLVING APPEARANCE AND BEHAVIOR - Discharge Discharge Date: 05/16/23 [facility] Condition: Good Prescriptions: No Action No Reportable Medications [No Reported Medications] Follow up with: STEWART KENDALL MD [Primary Care Provider] -
[2023-05-16 12:19] LABS: Appearance Clear (Clear); Bilirubin Negative (Negative); Blood Negative (Negative); Glucose, Urine 250 mg/dL (Negative); Ketones Negative (Negative); Leukocyte Esterase Negative (Negative); Nitrite Negative (Negative); Protein,Urine Dip Negative (Negative); Specific Gravity 1.015 (1.005-1.030); Urobilinogen 0.2 mg/dL (0.2)
[2023-05-16 12:28] LABS: ADD URINE CULTURE? NO (NO); Bacteria None Seen /HPF (None Seen); Epithelial Cells None Seen /HPF (None Seen); Hyaline Casts NONE SEEN /LPF (0-2); RBC 0-2 /HPF (0-5); WBC 0-2 /HPF (0-5)
--- NOTE | 2023-05-16 13:18 | PCM.NOTE ---
Date and Time: 05/16/23 1312 Subjective Assessment: 05/12/23 is a 67 year old male with PMHX of asthma, COPD (on 3-4 L PRN), and spleen removed several years ago. He presented in the ER with increasing shortness of breath since last night with some chest discomfort all over. Patient reports weak fatigued tired and feeling of dehydration. Denies any cough or sick contact. No fever but did have some chills last night. Patient is supposed to be on some cardiac medications but has not been taking it for a long time. Not a good historian and history is limited. In ER pt was having multiple PVCs, bigeminy and couplets without any ST elevations. He is given fluid bolus along with IV magnesium. Patient workup showed normal white count, fairly unremarkable chemistries except for low TSH which could be the reason for these bigeminy's. Patient has seen gym attendant Dr. Portillo before but does not take any medications. ER MD spoke with gym attendant and he has compared EKG with previous EKG in his office and he did not think it is much different. He recommended patient to be started on metoprolol 50 mg XL daily, lisinopril 10 mg, Lipitor 20 mg and patient is given a dose of IV Lopressor 2.5 mg. Patient is feeling minimal improvement but still have PVCs. Also cardiology recommended obtaining CTA coronaries for further evaluation of CAD. Patient initial troponins are negative. Lactate is 3.9 but no obvious focus of infection, cultures are pending. Patient also has a negative COVID flu and RSV. On admission pt continues to c/o SOB D-Dimer 0.78, CTA ordered for further eval. He smells of a strong odor, UA with C&S ordered as well as ammonia. He has some chest discomfort, SOB, denies abd. pain, N/V/D. 05/13/23 Pt resting in bed. He was moved to ICU overnight for episodes of v-tach and bigemy PVC's. He was placed on an amiodarone gtt. He continues to have the same irregular rhythms. UDS was + for meth. Discussed with pt and he feels he needs help OP. He denies suicidal or homicidal thoughts. He states he has not bee taking his meds as he does not have time to pick them up. He reported he does not work. He just does not have time. Ceftriaxone started for UTI. Transfer to a higher level of care d/t continued abnormal rhythms, on amiodarone gtt, and overnight CP. Pt's gym attendant is at [facility]. He denies Abd pain, N/V/D. 05/14/23 Pt resting in bed in ICU. He had no overnight events of v-tach. Apparently overnight pt became combative and hallucinating. Security is now outside of room due to his bizarre behavior. CIWA protocol started. Ativan has made him sleepy. He continues to have bigeminy and trigeminy PVC's. His HR this morning dropped into 40's and 50's. Amiodarone gtt stopped and changed to oral. Metoprolol stopped, will restart metoprolol at a lower dose as rate has increased to 70's. He got up out of bed this afternoon and urinated all over the floor. He is still awaiting transfer to a higher level of care and there is a 2 date wait on an ICU bed at [facility]. Echo read by Dr. Portillo and EJ is 30-35%. 05/15/23 Pt resting in bed. He is still pending tx to [facility]- awaiting a bed. July be Wednesday. He again had no overnight events of v-tach and HR is becoming more regular. He does intermittently have bigeminy PVC's. Will lower amiodarone to 200mg BID. He remains confused and has pulled out 2 IV's overnight. Labs look fine. He is eating and drinking well. IVF stopped. He deneis any concerns at this time. 05/16/23 Pt resting in bed. This morning he was extremely agitated and no ativan overnight had been given. He did eat all his breakfast and then was given ativan and rested. He no longer meets ICU criteria. Can tx to med surg bed. Called [facility] for ICU step down cardiac unit, they called back and explained they do not have beds there either and will not transfer today. Wait list is however shorter than ICU list. He continues to have intermittent bigeminy PVC's. He had no overnight events of v-tach. Will continue on same meds today for BP and HR. BC x2 negative. UA reordered due to contaminant. Continue CIWA for withdrawl. He deneis any concerns at this time. - Review of Systems Constitutional: No Fever, No Chills Eyes: No Symptoms Ears, Nose, & Throat: No Symptoms Respiratory: No Cough, No Short Of Breath Cardiac: No Chest Pain, No Edema, No Syncope Abdominal/Gastrointestinal: No Abdominal Pain, No Nausea, No Vomiting, No Diarrhea Genitourinary Symptoms: No Dysuria Musculoskeletal: No Back Pain, No Neck Pain Skin: No Rash Neurological: No Dizziness, No Focal Weakness, No Sensory Changes Psychological: Drug Abuse, Anxiety Endocrine: No Symptoms Hematologic/Lymphatic: No Symptoms Immunological/Allergic: No Symptoms Objective Exam General Appearance: no apparent distress, alert Neurologic Exam: alert, oriented x 3, nml cerebellar function, sensation nml, agitation, uncooperative, No motor deficits Skin Exam: normal color, warm, dry Eye Exam: PERRL, EOMI, eyes nml inspection Ears, Nose, Throat Exam: normal ENT inspection, pharynx normal, moist mucous mem branes Neck Exam: normal inspection, non-tender, supple, full range of motion Respiratory Exam: normal breath sounds, lungs clear, No respiratory distress Cardiovascular Exam: regular rate/rhythm, normal heart sounds Gastrointestinal/Abdomen Exam: soft, No tenderness, No mass Extremity Exam: normal inspection, normal range of motion Back Exam: normal inspection, normal range of motion, No CVA tenderness, No vertebral tenderness Male Genitalia Exam: deferred Rectal Exam: deferred OBJECTIVE DATA Vital Signs: Vital Signs - 24 hr Temp Pulse Resp BP BP Pulse Ox 05/16/23 08:01 68 18 143/85 05/16/23 08:00 68 05/16/23 07:40 97.1 F 68 16 143/85 96 05/16/23 07:18 74 20 97 05/16/23 05:00 97.6 F 73 21 124/68 97 05/16/23 01:00 76 20 05/15/23 21:19 97.7 F 65 20 122/81 96 05/15/23 19:50 95 05/15/23 17:05 68 19 128/82 94 L 05/15/23 16:00 66 05/15/23 15:01 97.4 F 66 16 116/69 94 L 05/15/23 14:34 97.3 F 65 16 131/76 97 05/15/23 13:32 72 20 130/77 Pain Assessment - Last Documented Pain Intensity 0 Pain Scale Used 0-10 Pain Scale Intake and Output: Intake & Output 05/14/23 05/15/23 05/16/23 05/17/23 11:59 11:59 11:59 11:59 Intake Total 7571 086 4553 Output Total 100 300 400 Balance 1319 60 1759 Lab Results: Lab Results-Last 24 Hours 05/16/23 05/16/23 05/16/23 Range/Units 06:25 06:25 Unknown WBC 10.7 H (4.0-10.5) x10^3/uL RBC 5.44 (4.1-5.6) x10^6/uL Hgb 16.3 (12.5-18.0) g/dL Hct 50.2 H (42-50) % MCV 92.3 (78-100) fL MCH 30.0 (26-32) pg MCHC 32.5 (32-36) g/dL RDW 13.1 (11.5-14.0) % Plt Count 430 (150-450) x10^3/uL MPV 10.2 (7.5-11.0) fL Sodium 138 (137-145) mmol/L Potassium 3.5 (3.5-5.1) mmol/L Chloride 108 H (98-107) mmol/L Carbon Dioxide 24 (22-30) mmol/L Anion Gap 10.2 (5-15) MEQ/L BUN 18 (9-20) mg/dL Creatinine 1.22 (0.66-1.25) mg/dL Estimated GFR 65.0 ML/MIN Glucose 120 H (74-106) mg/dL Calcium 8.6 (8.4-10.2) mg/dL Total Bilirubin 1.10 (0.2-1.3) mg/dL AST 21 (17-59) U/L ALT 19 (0-50) U/L Alkaline Phosphatase 65 (38-126) U/L Serum Total Protein 7.2 (6.3-8.2) g/dL Albumin 4.0 (3.5-5.0) g/dL Procalcitonin (0.030-0.080) ng/mL Urine Color Yellow (Yellow) Urine Appearance Clear (Clear) Urine pH 6.0 (4.6-8.0) Ur Specific Rayle 1.015 (1.005-1.030) Urine Protein Negative (Negative) Urine Glucose (UA) 250 A (Negative) mg/dL Urine Ketones Negative (Negative) Urine Blood Negative (Negative) Urine Nitrite Negative (Negative) Urine Bilirubin Negative (Negative) Urine Urobilinogen 0.2 (0.2) mg/dL Ur Leukocyte Esterase Negative (Negative) U Hyaline Cast (Auto) NONE SEEN (0-2) /LPF Urine Microscopic RBC 0-2 (0-5) /HPF Urine Microscopic WBC 0-2 (0-5) /HPF Ur Epithelial Cells None Seen (None Seen) /HPF Urine Bacteria None Seen (None Seen) /HPF Urine Culture Reflexed NO (NO) 05/16/23 Range/Units Unknown WBC (4.0-10.5) x10^3/uL RBC (4.1-5.6) x10^6/uL Hgb (12.5-18.0) g/dL Hct (42-50) % MCV (78-100) fL MCH (26-32) pg MCHC (32-36) g/dL RDW (11.5-14.0) % Plt Count (150-450) x10^3/uL MPV (7.5-11.0) fL Sodium (137-145) mmol/L Potassium (3.5-5.1) mmol/L Chloride (98-107) mmol/L Carbon Dioxide (22-30) mmol/L Anion Gap (5-15) MEQ/L BUN (9-20) mg/dL Creatinine (0.66-1.25) mg/dL Estimated GFR ML/MIN Glucose (74-106) mg/dL Calcium (8.4-10.2) mg/dL Total Bilirubin (0.2-1.3) mg/dL AST (17-59) U/L ALT (0-50) U/L Alkaline Phosphatase (38-126) U/L Serum Total Protein (6.3-8.2) g/dL Albumin (3.5-5.0) g/dL Procalcitonin 0.047 (0.030-0.080) ng/mL Urine Color (Yellow) Urine Appearance (Clear) Urine pH (4.6-8.0) Ur Specific Rayle (1.005-1.030) Urine Protein (Negative) Urine Glucose (UA) (Negative) mg/dL Urine Ketones (Negative) Urine Blood (Negative) Urine Nitrite (Negative) Urine Bilirubin (Negative) Urine Urobilinogen (0.2) mg/dL Ur Leukocyte Esterase (Negative) U Hyaline Cast (Auto) (0-2) /LPF Urine Microscopic RBC (0-5) /HPF Urine Microscopic WBC (0-5) /HPF Ur Epithelial Cells (None Seen) /HPF Urine Bacteria (None Seen) /HPF Urine Culture Reflexed (NO) Assessment/Plan (1) Chest pain Current Visit: No Status: Acute Qualifiers: Chest pain type: unspecified Qualified Code(s): R07.9 - Chest pain, unspecified Code(s): R07.9 - CHEST PAIN, UNSPECIFIED (2) Non-compliance Current Visit: Yes Status: Acute Code(s): Z91.199 - PT NONCOMPL WITH OTHER MED TRTMT AND REGIMEN D/T UNSP REASON (3) Bigeminy Current Visit: Yes Status: Acute Code(s): I49.8 - OTHER SPECIFIED CARDIAC AR RHYTHMIAS (4) Bradycardia Current Visit: Yes Status: Resolved Code(s): R00.1 - BRADYCARDIA, UNSPECIFIED (5) Dyspnea, unspecified Current Visit: Yes Status: Acute Code(s): R06.00 - DYSPNEA, UNSPECIFIED (6) Hypertension Current Visit: No Status: Chronic Qualifiers: Hypertension type: unspecified Qualified Code(s): I10 - Essential (primary) hypertension Code(s): I10 - ESSENTIAL (PRIMARY) HYPERTENSION (7) Hyperthyroidism Current Visit: Yes Status: Acute Code(s): E05.90 - THYROTOXICOSIS, UNSP WITHOUT THYROTOXIC CRISIS OR STORM (8) V-tach Current Visit: Yes Status: Acute Code(s): I47.20 - VENTRICULAR TACHYCARDIA, UNSPECIFIED (9) Amphetamine use Current Visit: No Status: Acute Code(s): F15.90 - OTHER STIMULANT USE, UNSPECIFIED, UNCOMPLICATED (10) Hallucination Current Visit: Yes Status: Acute Code(s): R44.3 - HALLUCINATIONS, UNSPECIFIED (11) Combative behavior Current Visit: Yes Status: Acute Assessment & Plan: (1) Chest pain Current Visit: No Status: Acute Qualifiers: Chest pain type: unspecified Qualified Code(s): R07.9 - Chest pain, unspecified Assessment & Plan: - Trop all negative - Per cardiology metoprolol XL 50mg daily, lisinopril, Zocor, and lasix - tele - echo- EF 42% per forklift technician- awaiting offical read by cardilogy - hx meth drug use- UDS - ASA 324mg once in ER - Start ASA 81 mg daily 05/14/23 - Stop amiodarone gtt, started oral - Stopped metoprolol - this afternoon restarted at 25mg - Echo 05/14 IMPRESSION: 1) GLOBAL LEFT VENTRICULAR HYPOKINESIA WITH EJECTION FRACTION BETWEEN 30 TO 35%. 2) MILDLY DILATED LEFT VENTRICLE. 3) TRACE TRICUSPID REGURGITATION. RIGHT VENTRICULAR SYSTOLIC PRESSURE OF 21 MM OF MERCURY. 4) MILD MITRAL REGURGITATION. 5) LEFT VENTRICULAR DIASTOLIC DYSFUNCTION. 6) LEFT VENTRICULAR HYPERTROPHY. The left ventricle is visualized and demonstrated global-type of hypokinesia with global ejection fraction between 30 to 35%. The left ventricle is mildly dilated. There is mild left ventricular hypertrophy. The mitral valve is mildly thickened but opens adequately. There is mild mitral regurgitation. Left atrium is not enlarged. Tissue Doppler study of the lateral mitral annulus suggestive of left ventricular diastolic dysfunction. The aortic valve is mildly thickened. The right side chambers are normal. There is trace tricuspid regurgitation. The right ventricular systolic pressure of 21 mm of Mercury. 05/15 - No overnight c/o CP - IVF stopped Code(s): R07.9 - CHEST PAIN, UNSPECIFIED (2) Non-compliance Current Visit: Yes Status: Acute Assessment & Plan: - hx of non-compliance, not taking home meds as prescribed Code(s): Z91.199 - PT NONCOMPL WITH OTHER MED TRTMT AND REGIMEN D/T UNSP REASON (3) Bigeminy Current Visit: Yes Status: Acute Assessment & Plan: - as seen on EKG and tele - see above CP plan 05/14 - transitioning from bigeminy to trigeminy PVC's - See above CP plan 05/15 - continued intermittently, has improved- not as often - reduce amiodarone 05/16 -Continued bigeminy Code(s): I49.8 - OTHER SPECIFIED CARDIAC ARRHYTHMIAS (4) Bradycardia Current Visit: Yes Status: Resolved Assessment & Plan: - CIWA started last night d/t meth withdrawl and multiple Ativan dose gave - Pt was an Amiodarone gtt and this was stopped and PO started - metoprolol stopped - HR increased in 70's then Metoprolol 25mg (lower dose) started - resolved Code(s): R00.1 - BRADYCARDIA, UNSPECIFIED (5) Dyspnea, unspecified Current Visit: Yes Status: Acute Assessment & Plan: - r/t abnormal heart rhythm or drug use - Chest CTA- Impression: 1. Continued negative pulmonary embolus. No new/acute cardiopulmonary abnormalities. 2. Again chronic findings including pulmonary emphysema, pulmonary fibrosis/scarring, arteriosclerotic disease, chronic bony findings, left renal cyst, and old granulomatous disease. - CXR 05/12 Portable apical lordotic chest unchanged again hyperinflated and clear with a few incidental right lung calcified granulomas. Heart not enlarged. Bony thorax intact again with osteopenia, mild degenerative changes, and old left 6 rib fracture. No new/acute findings - D-Dimer 0.78 - RA 94% 05/14 - 4LNC 97% 05/15 - RA 94% - intermittent need for O2, Keep O2 > 92% Code(s): R06.00 - DYSPNEA, UNSPECIFIED (6) Hypertension Current Visit: No Status: Chronic Qualifiers: Hypertension type: unspecified Qualified Code(s): I10 - Essential (primary) hypertension Assessment & Plan: - Started metoprolol and lisinopril - Monitor 05/14 - stable - decreased metoprolol 05/16 - stable Code(s): I10 - ESSENTIAL (PRIMARY) HYPERTENSION (7) Hyperthyroidism Current Visit: Yes Status: Acute Assessment & Plan: -TSH 0.392 - F/U OP with endocrinology OP Code(s): E05.90 - THYROTOXICOSIS, UNSP WITHOUT THYROTOXIC CRISIS OR STORM (8) V-tach Current Visit: Yes Status: Acute Assessment & Plan: - episodes, non-sustained - amiodarone gtt - ICU - awaiting transfer to higher level of care 05/14 - no overnight events- resolved Code(s): I47.20 - VENTRICULAR TACHYCARDIA, UNSPECIFIED (9) Amphetamine use Current Visit: No Status: Acute Assessment & Plan: - history of use - denies IV use - he reports he is unsure of any recent smoking use. - UDS+ for meth 05/14 - CIWA- ativan - no hx of ETOH use - + withdrawals of meth 05/15 - When more awake and alert would benefit from psych consult as pt had repeated admissions for this. - Continued confusion pulling out IV'S. 05/16 - Continued agitation and confusion with incontinence. - Continue ativan Code(s): F15.90 - OTHER STIMULANT USE, UNSPECIFIED, UNCOMPLICATED (10) Hallucination Current Visit: Yes Status: Acute Assessment & Plan: - 04/30 Meth withdrawal - CIWA- ativan Code(s): R44.3 - HALLUCINATIONS, UNSPECIFIED (11) Combative behavior Current Visit: Yes Status: Acute Assessment & Plan: - 04/30 Meth withdrawal - CIWA- ativan Code(s): R46.89 - OTHER SYMPTOMS AND SIGNS INVOLVING APPEARANCE AND BEHAVIOR VTE: Lovenox PPI: protonix Next of KIN: none D/C plan: when bed open at [facility] Code status: Full Code(s): R46.89 - OTHER SYMPTOMS AND SIGNS INVOLVING APPEARANCE AND BEHAVIOR
[2023-05-16 21:12] VITALS: BP 142/93; PULSE 75; RESP 22; TEMP 98.7; O2SAT 95
== END 2023-05-16 20:38 | disposition short-term general hospital (02) ==
LOC: ED 11:06 → OBSVTOIN 17:41 → INTOOBSV 17:41 → MED SURG 17:41 → ICU 05-14 17:03
PROVIDERS: ADMIT Internal Medicine; ATTEND Internal Medicine
DX: R07.9 Chest pain, unspecified (principal); Z91.199 Patient's noncompliance with other medical treatment and regimen due to unspecified reason; I49.8 Other specified cardiac arrhythmias; R06.00 Dyspnea, unspecified; I10 Essential (primary) hypertension; E05.90 Thyrotoxicosis, unspecified without thyrotoxic crisis or storm; I47.20 Ventricular tachycardia, unspecified; F15.90 Other stimulant use, unspecified, uncomplicated; R44.3 Hallucinations, unspecified; R45.6 Violent behavior; J44.9 Chronic obstructive pulmonary disease, unspecified; N39.0 Urinary tract infection, site not specified; Z20.828 Contact with and (suspected) exposure to other viral communicable diseases
CPT/HCPCS: 0241U; 36000; 36415; 71045; 71260; 80053; 80307; 81001; 82077; 82140; 83605; 83735; 83880; 84132; 84145; 84443; 84484; 85025; 85027; 85379; 87040; 87086; 93005; 93041; 93268; 93306; 94640; 94760; 94762; 96360; 96365; 96374; 99285; G0378; Q3014; J0696; J1170; J1650; J1940; J2060; A9270-GY; J0282; J3475

== ENCOUNTER 2023-05-24 01:01 | Emergency (ER) | payer MEDICARE ==
[2023-05-24] MEDS ORDERED: NITRO-BID 2% UD PACKETS ONE (01:15)
--- NOTE | 2023-05-24 01:17 | ERPHSYRPT ---
- History of Present Illness Time Seen by Provider: 05/24/23 01:15 Historian: patient Physician History: 67yo presents by EMS for 1hr chest pain that started at rest. Pt reports the pain is on the left side of his chest and radiates into the left shoulder, does not radiate up the neck or into the back. Pt does endorse some diaphoresis but denies n/v/sob. Pt was hospitalized last week for similar sx, was admitted to ICU and placed on amio drip for persistent runs of VTACH. Pt reports he was told by his trace evidence technician that he needs multiple stents placed. Timing/Duration: today, hour(s) (1hr prior to presentation) Activities at Onset: rest Quality: pressure, sharpness Location: substernal Chest Pain Radiation: no radiation Severity of Pain-Max: severe Severity of Pain-Current: moderate Modifying Factors: Improves With: nothing Associated Symptoms: diaphoresis, No nausea, No vomiting, No shortness of breath, No edema, No back pain Prior Chest Pain/Cardiac Workup: recently seen/treated, recent hospitalization Nitro Today/Relief: provided by EMS, provided by ED (.4mg from ED, nitro paste 1inch given in ED) Aspirin Treatment Today: 325 mg x 1, provided by ED Allergies/Adverse Reactions: Penicillins Allergy (Verified 05/24/23 01:17) Home Medications: Atorvastatin Calcium 20 mg PO DAILY 05/24/23 [History] Lisinopril 10 mg [Zestril 10 MG] 10 mg PO DAILY 05/24/23 [History] Metoprolol Succinate 50 mg PO DAILY 05/24/23 [History] methylPREDNISolone [Methylprednisolone] 4 mg PO UD 05/24/23 [History] Hx Tetanus, Diphtheria Vaccination/Date Given: Yes Hx Influenza Vaccination/Date Given: Yes Hx Pneumococcal Vaccination/Date Given: No Travel Risk - Vaccine Status Have you recieved a Covid-19 vaccination: No Student Development Coordinator: Unknown - Vaccination Dates Dates if Unknown: unknown - Review of Systems Constitutional: No Symptoms Respiratory: No Symptoms Cardiac: Chest Pain, No Edema Abdominal/Gastrointestinal: No Symptoms - Past Medical History Pertinent Past Medical History: Yes Neurological History: No Pertinent History ENT History: No Pertinent History Cardiac History: Hypertension Respiratory History: Asthma, COPD Endocrine Medical History: No Pertinent History Musculoskeletal History: Fractures GI Medical History: No Pertinent History History: No Pertinent History Psycho-Social History: No Pertinent History Male Reproductive Disorders: No Pertinent History Other Medical History: pt is a poor historian, and unsure. Completed to best of ability. - Past Surgical History Past Surgical History: Yes Neuro Surgical History: No Pertinent History Cardiac: No Pertinent History Respiratory: No Pertinent History Gastrointestinal: No Pertinent History Genitourinary: No Pertinent History Musculoskeletal: No Pertinent History Male Surgical History: No Pertinent History Other Surgical History: SPLEEN REMOVED-several years ago - Social History Smoking Status: Former smoker How long have you smoked: YRS Exposure to second hand smoke: Yes Drug Use: none Patient Lives Alone: Yes Significant Family History: no pertinent family hx - Nursing Vital Signs Nursing Vital Signs: Initial Vital Signs Pulse Rate 84 05/24/23 01:01 Respiratory Rate 32 H 05/24/23 01:01 Blood Pressure 139/72 05/24/23 01:01 O2 Sat by Pulse Oximetry 99 05/24/23 01:01 Pain Scale Pain Intensity 7 - Physical Exam General Appearance: mild distress, alert Respiratory Exam: normal breath sounds, lungs clear, airway intact, No respiratory distress Cardiovascular Exam: regular rate/rhythm, normal heart sounds, capillary refill 2-3 sec Gastrointestinal/Abdomen Exam: soft, No tenderness, No distention SpO2 Interpretation: normal SpO2: 99 O2 Delivery: Nasal Cannula (2L) - Course EKG Interpreted by Me: RATE (69), Sinus Rhythm, Other (PVCs present, some concerning ST elevations and depressions that may suggest ischemia) Ordered Tests: Active Orders 24 hr Category Date Time Status Dean STAT Care 05/24/23 01:12 Active IV Insertion STAT Care 05/24/23 01:12 Active Pulse Oximetry (ED) STAT Care 05/24/23 01:12 Active CHEST 1 VIEW (PORTABLE) Stat Exams 05/24/23 01:12 Taken CHEST WITH CONTRAST [CT] Stat Exams 05/24/23 02:48 Taken CBC W DIFF Stat Lab 05/24/23 01:40 Completed CMP Stat Lab 05/24/23 01:40 Completed LIPASE Stat Lab 05/24/23 02:00 Completed Manual Differential NC Stat Lab 05/24/23 01:40 Completed NT PRO BNPII Stat Lab 05/24/23 01:40 Completed PROTIME WITH INR Stat Lab 05/24/23 01:40 Completed PTT Stat Lab 05/24/23 01:40 Completed TROPONIN Q4H Lab 05/24/23 01:40 Completed TROPONIN Q4H Lab 05/24/23 03:38 Completed TROPONIN Q4H Lab 05/24/23 09:15 Ordered Medication Summary Discontinued Medications Generic Name Dose Route Start Last Admin Trade Name Cara PRN Reason Stop Dose Admin Fentanyl Citrate 50 mcg 05/24/23 02:43 05/24/23 03:07 Fentanyl Citrate 100 Mcg/2 Ml* Vial IV 05/24/23 02:44 50 mcg STAT ONE Administration Fentanyl Citrate Confirm 05/24/23 03:02 Fentanyl Citrate 100 Mcg/2 Ml* Vial Administered 05/24/23 03:03 Dose 100 mcg .ROUTE .STK-MED ONE Magnesium Sulfate/Water 2 gm in 50 mls @ 100 mls/hr 05/24/23 01:32 05/24/23 0 4:59 Magnesium Sulf 2 G/50 Ml Bag IV 05/24/23 02:01 Infused ONCE ONE Infusion Magnesium Sulfate/Water Confirm 05/24/23 01:40 Magnesium Sulf 2 G/50 Ml Bag Administered 05/24/23 01:41 Dose 2 gm in 50 mls @ ud IV .STK-MED ONE Lorazepam 0.5 mg 05/24/23 05:10 05/24/23 05:25 Lorazepam 2 Mg/1 Ml 2 Mg Vial IV 05/24/23 05:11 0.5 mg STAT ONE Administration Lorazepam Confirm 05/24/23 05:20 Lorazepam 2 Mg/1 Ml 2 Mg Vial Administered 05/24/23 05:21 Dose 2 mg .ROUTE .STK-MED ONE Nitroglycerin 1 gm 05/24/23 01:12 05/24/23 01:20 Nitroglycerin 1 Gm Packet TOP 05/24/23 01:13 1 gm STAT ONE Administration Nitroglycerin Confirm 05/24/23 01:15 Nitroglycerin 1 Gm Packet Administered 05/24/23 01:16 Dose 1 gm .ROUTE .STK-MED ONE Lab/Rad Data: Laboratory Result Diagrams 05/24/23 01:40 05/24/23 01:40 Laboratory Results 05/24/23 05/24/23 05/24/23 Range/Units 03:38 02:00 01:40 WBC (4.0-10.5) x10^3/uL RBC (4.1-5.6) x10^6/uL Hgb (12.5-18.0) g/dL Hct (42-50) % MCV (78-100) fL MCH (26-32) pg MCHC (32-36) g/dL RDW (11.5-14.0) % Plt Count (150-450) x10^3/uL MPV (7.5-11.0) fL Absolute Nucleated RBC (0.00-0.01) x10^3u/L Segmented Neutrophils (36.-66.) % Lymphocytes (Manual) (24-44) % Monocytes (Manual) (0.0-12.0) % Platelet Estimate (NORMAL) RBC Morphology PT (9.4-12.5) SECONDS INR (0.8-3.0) APTT (25.1-36.5) SECONDS Sodium (137-145) mmol/L Potassium (3.5-5.1) mmol/L Chloride (98-107) mmol/L Carbon Dioxide (22-30) mmol/L Anion Gap (5-15) MEQ/L BUN (9-20) mg/dL Creatinine (0.66-1.25) mg/dL Estimated GFR ML/MIN Glucose (74-106) mg/dL Calcium (8.4-10.2) mg/dL Total Bilirubin (0.2-1.3) mg/dL AST (17-59) U/L ALT (0-50) U/L Alkaline Phosphatase (38-126) U/L Troponin I < 0.012 (0.000-0.034) ng/mL NT-Pro-B Natriuret Pep 517 (<300) pg/mL Serum Total Protein (6.3-8.2) g/dL Albumin (3.5-5.0) g/dL Lipase 165 (23-300) U/L 05/24/23 05/24/23 05/24/23 Range/Units 01:40 01:40 01:40 WBC (4.0-10.5) x10^3/uL RBC (4.1-5.6) x10^6/uL Hgb (12.5-18.0) g/dL Hct (42-50) % MCV (78-100) fL MCH (26-32) pg MCHC (32-36) g/dL RDW (11.5-14.0) % Plt Count (150-450) x10^3/uL MPV (7.5-11.0) fL Absolute Nucleated RBC (0.00-0.01) x10^3u/L Segmented Neutrophils (36.-66.) % Lymphocytes (Manual) (24-44) % Monocytes (Manual) (0.0-12.0) % Platelet Estimate (NORMAL) RBC Morphology PT 10.1 (9.4-12.5) SECONDS INR 0.92 (0.8-3.0) APTT 22.9 L (25.1-36.5) SECONDS Sodium 140 (137-145) mmol/L Potassium 3.5 (3.5-5.1) mmol/L Chloride 108 H (98-107) mmol/L Carbon Dioxide 25 (22-30) mmol/L Anion Gap 10.7 (5-15) MEQ/L BUN 17 (9-20) mg/dL Creatinine 1.10 (0.66-1.25) mg/dL Estimated GFR 73.6 ML/MIN Glucose 193 H (74-106) mg/dL Calcium 8.8 (8.4-10.2) mg/dL Total Bilirubin 0.30 (0.2-1.3) mg/dL AST 30 (17-59) U/L ALT 29 (0-50) U/L Alkaline Phosphatase 66 (38-126) U/L Troponin I < 0.012 (0.000-0.034) ng/mL NT-Pro-B Natriuret Pep (<300) pg/mL Serum Total Protein 7.3 (6.3-8.2) g/dL Albumin 4.1 (3.5-5.0) g/dL Lipase (23-300) U/L 05/24/ Range/Units 01:40 WBC 27.2 H* (4.0-10.5) x10^3/uL RBC 4.82 (4.1-5.6) x10^6/uL Hgb 14.8 (12.5-18.0) g/dL Hct 46.4 (42-50) % MCV 96.3 (78-100) fL MCH 30.7 (26-32) pg MCHC 31.9 L (32-36) g/dL RDW 14.0 (11.5-14.0) % Plt Count 465 H (150-450) x10^3/uL MPV 11.1 H (7.5-11.0) fL Absolute Nucleated RBC 0.00 (0.00-0.01) x10^3u/L Segmented Neutrophils 89 H (36.-66.) % Lymphocytes (Manual) 8 L (24-44) % Monocytes (Manual) 3 (0.0-12.0) % Platelet Estimate INCREASED (NORMAL) RBC Morphology NORMAL PT (9.4-12.5) SECONDS INR (0.8-3.0) APTT (25.1-36.5) SECONDS Sodium (137-145) mmol/L Potassium (3.5-5.1) mmol/L Chloride (98-107) mmol/L Carbon Dioxide (22-30) mmol/L Anion Gap (5-15) MEQ/L BUN (9-20) mg/dL Creatinine (0.66-1.25) mg/dL Estimated GFR ML/MIN Glucose (74-106) mg/dL Calcium (8.4-10.2) mg/dL Total Bilirubin (0.2-1.3) mg/dL AST (17-59) U/L ALT (0-50) U/L Alkaline Phosphatase (38-126) U/L Troponin I (0.000-0.034) ng/mL NT-Pro-B Natriuret Pep (<300) pg/mL Serum Total Protein (6.3-8.2) g/dL Albumin (3.5-5.0) g/dL Lipase (23-300) U/L - Progress Progress: unchanged Air Movement: fair Progress Note: 05/24/23 02:43 initial troponin negative wbc 27k, no clear source of infection CTA chest ordered Blood Culture(s) Obtained: No Antibiotics given: No Medical Desision Making - Risk of complications The pt has a high risk of morbidity or mortality based on: Decision regarding hospitilization or escalation of hosp level of care - Departure Clinical Impression: Leukocytosis Qualifiers: Leukocytosis type: unspecified Qualified Code(s): D72.829 - Elevated white blood cell count, unspecified Chest pain Qualifiers: Chest pain type: other chest pain Qualified Code(s): R07.89 - Other chest pain; R07.8 - Other chest pain Condition: Stable Critical Care Time: No Referrals: STEWART KENDALL MD [Primary Care Provider] - Follow up/PCP as directed
[2023-05-24] MEDS: NITRO-BID 2% UD PACKETS TOP ONE (01:20)
[2023-05-24] MEDS ORDERED: MAGNESIUM SULF 2 G/50 ML BAG 2 GM/50 ML PIGGYBACK IV ONE (01:40)
[2023-05-24] MEDS: MAGNESIUM SULF 2 G/50 ML BAG 2 GM/50 ML PIGGYBACK IV ONE (01:41)
[2023-05-24 01:47] LABS: Hematocrit 46.4 % (42-50); Hemoglobin 14.8 g/dL (12.5-18.0); Mean Cell Volume 96.3 fL (78-100); Mean Corpuscular Hemoglobin 30.7 pg (26-32); Mean Corpuscular Hgb Concent. 31.9 g/dL (32-36); Mean Platelet Volume 11.1 fL (7.5-11.0); Platelet Count 465 x10^3/uL (150-450); Red Blood Count 4.82 x10^6/uL (4.1-5.6)
[2023-05-24 01:54] LABS: White Blood Count 27.2 x10^3/uL (4.0-10.5)
[2023-05-24 02:03] LABS: ALBUMIN 4.1 g/dL (3.5-5.0); ANION GAP 10.7 MEQ/L (5-15); BILIRUBIN,TOTAL 0.3 mg/dL (0.2-1.3); Calcium 8.8 mg/dL (8.4-10.2); Creatinine 1 1.1 mg/dL (0.66-1.25); EST GLOMERULAR FILTRATION RATE 73.6 ML/MIN; Potassium 3.5 mmol/L (3.5-5.1); Total Protein 7.3 g/dL (6.3-8.2)
[2023-05-24 02:04] LABS: INR 0.92 (0.8-3.0); PROTIME 10.1 SECONDS (9.4-12.5); PTT 22.9 SECONDS (25.1-36.5)
[2023-05-24 02:59] LABS: Lymphocytes 8 % (24-44); Monocyte 3 % (0.0-12.0); Neutrophils 89 % (36.-66.); Platelet Estimate INCREASED (NORMAL); Total Cells Counted 100
[2023-05-24] MEDS ORDERED: SUBLIMAZE 100 MCG/2 ML ONE (03:02)
[2023-05-24] MEDS: SUBLIMAZE 100 MCG/2 ML IV ONE (03:07)
[2023-05-24] MEDS ORDERED: Ativan 2 MG/1 ML VIAL ONE (05:20)
[2023-05-24] MEDS: Ativan 2 MG/1 ML VIAL IV ONE (05:25)
--- NOTE | 2023-05-24 07:34 | XRAY ---
CLINICAL HISTORY: cp TECHNIQUE: Axial CT images of the chest were acquired with the administration of intravenous contrast to visualize the pulmonary arteries and their branches. Coronal and sagittal reconstructions were obtained. COMPARISON: None FINDINGS: The main pulmonary trunk, right and left main pulmonary arteries as well as segmental branches appear of normal caliber without evidence of any filling defect. No evidence of pulmonary arterial thrombosis was identified. Slightly prominent pulmonary trunk measuring 3 cm. Findings are concerning for possible pulmonary arterial hypertension. Scattered aortic atheromatous clarifications; otherwise patent ascending aorta, aortic arch, and descending aorta showing normal caliber. No evidence of aortic coarctation or dissection. No aneurysmal dilatation. The scanned pulmonary parenchyma shows no definite consolidative lesions. Bilateral lung upper lobes variable sizes macro-cystic changes were noticed with apical subpleural thin reticulations likely an element of interstitial lung disease. Right lung middle lobe subpleural calcified nodule measuring 9.5 mm likely old granulomatous. No free or encysted pleural effusion. Heart size is normal, and there is no pericardial effusion. Right hilar small calcified lymph node. No pathologically enlarged mediastinal, or axillary lymph node was identified. There is no definite mass lesion in the chest wall. Left 3rd, 4th & 5th ribs old united fractures. The scanned upper abdomen revealed a right hepatic lobe segment VIII subcapsular focal lesion measuring 16 mm without evident contrast enhancement could be a benign cyst. There are left hypochondrial well-defined soft tissue structures the largest about 3.5x2.5 cm with a related calcific focus possibly splenules. If needed, US evaluation may be advised. Degenerative changes of the scanned spine. IMPRESSION: 1. No evidence of pulmonary arterial thromboembolic disease. 2. Slightly prominent pulmonary trunk measuring 3 cm. Findings are concerning for possible pulmonary arterial hypertension. 3. Bilateral lung upper lobes variable sizes macro-cystic changes were noticed with apical subpleural thin reticulations likely an element of interstitial lung disease. Clinical correlation is advised. 4. Right lung middle lobe subpleural calcified nodule measuring 9.5 mm likely old granulomatous. Electronically Signed by: Gris Muller MD. (05/24/2023 07:31:32 EST)
[2023-05-24 07:57] LABS: Appearance Clear (Clear); Bacteria None Seen /HPF (None Seen); Bilirubin Negative (Negative); Blood Negative (Negative); Epithelial Cells None Seen /HPF (None Seen); Glucose, Urine 250 mg/dL (Negative); Hyaline Casts NONE SEEN /LPF (0-2); Ketones Negative (Negative); Leukocyte Esterase Negative (Negative); Nitrite Negative (Negative); Protein,Urine Dip Negative (Negative); RBC 0-2 /HPF (0-5); Specific Gravity >=1.030 (1.005-1.030); WBC 0-2 /HPF (0-5)
[2023-05-24 08:01] LABS: ADD URINE CULTURE? NO (NO)
[2023-05-24 08:47] LABS: Amphetamine,Urine NEGATIVE (NEGATIVE); Barbiturate,Urine NEGATIVE (NEGATIVE); Benzodiazepine,Urine POSITIVE (NEGATIVE); Cocaine,Urine NEGATIVE (NEGATIVE); Methadone,Urine NEGATIVE (NEGATIVE); Opiate,Urine NEGATIVE (NEGATIVE); PCP,Urine NEGATIVE (NEGATIVE); THC,Urine NEGATIVE (NEGATIVE)
--- NOTE | 2023-05-24 08:47 | XRAY ---
Indication: Chest pain. Comparison: May 12, 2023 Portable chest less inflated with new minimal left base subsegmental atelectasis. Remaining heart and lungs unremarkable again with incidental right lung calcified granulomas. No new/acute abnormalities.
[2023-05-24 09:40] VITALS: BP 130/71; PULSE 80; RESP 15; O2SAT 98
== END 2023-05-24 09:40 | disposition home or self-care (01) ==
LOC: ED 01:01
DX: D72.829 Elevated white blood cell count, unspecified (principal); R07.89 Other chest pain; I49.3 Ventricular premature depolarization; I10 Essential (primary) hypertension; Z79.52 Long term (current) use of systemic steroids; Z79.899 Other long term (current) drug therapy
CPT/HCPCS: 36000; 36415; 71045; 71260; 80053; 80307; 81001; 83690; 83880; 84484; 85025; 85610; 85730; 87040; 93041; 94760; 96374; 96375; 99285; J2060; J3010; A9270-GY; J3475

== ENCOUNTER 2023-06-22 21:06 | Emergency (ER) | payer MEDICARE ==
[2023-06-22 22:18] LABS: Absolute Neutrophil Ct (ANC) 6.19 x10^3/uL (1.4-6.9); BASOPHIL % 0.8 % (0.0-0.4); Basophil (Absolute #) 0.08 x10^3/uL (0-0.4); Hematocrit 47.8 % (42-50); Hemoglobin 15.4 g/dL (12.5-18.0); IMMATURE GRAN # 0.02 x10^3u/L (0.00-0.03); IMMATURE GRAN % 0.2 % (0.00-0.4); Lymphocyte (Absolute #) 2.45 x10^3/uL (1.0-4.6); Mean Cell Volume 94.5 fL (78-100); Mean Corpuscular Hemoglobin 30.4 pg (26-32); Mean Corpuscular Hgb Concent. 32.2 g/dL (32-36); Mean Platelet Volume 9.5 fL (7.5-11.0); Monocyte (Absolute #) 1.35 x10^3/uL (0.0-1.3); Monocytes % 13.2 % (0.0-12.0); Neutrophil % 60.8 % (36.0-66.0); Platelet Count 426 x10^3/uL (150-450); Red Blood Count 5.06 x10^6/uL (4.1-5.6); Red Cell Distribution Width 13.6 % (11.5-14.0); White Blood Count 10.2 x10^3/uL (4.0-10.5)
[2023-06-22 22:20] VITALS: TEMP 97.9
--- NOTE | 2023-06-22 22:28 | ERPHSYRPT ---
- History of Present Illness Time Seen by Provider: 06/22/23 21:40 Source: patient Exam Limitations: no limitations Patient Subjective Stated Complaint: Swelling to Benny hands and feet Triage Nursing Assessment: Patient ambulated into ED and transferred self to bed. Patient A+O X 3. Patient's skin pink, warm and dry. Patient complains of benny hands and feet swelling and pain for a few days. Patient states he was seen at [facility] yesterday for same issue and was D/C home. benny hands and feet noted to be swollen. Physician History: 67-year-old male presents to our ED for evaluation of swelling to hands and feet. Symptoms started 2 days ago. Patient states he went to [facility] for the same complaint. Patient was evaluated and discharged home. Patient states his symptoms have not improved. No associated chest pain or shortness of breath. No nausea vomiting or diaphoresis. Symptoms are moderate in intensity. No specific worsening improving factors. Patient otherwise feels well. He voices no other complaints or concerns at this time. Portions of this note were created with voice recognition technology. There may be grammatical, spelling, punctuation or sound alike errors Timing/Duration: day(s) (2 days) Severity: moderate Modifying Factors: Improves With: nothing Associated Symptoms: denies symptoms Allergies/Adverse Reactions: Penicillins Allergy (Verified 06/22/23 22:11) Home Medications: Atorvastatin Calcium 20 mg PO DAILY 05/24/23 [History] Lisinopril 10 mg [Zestril 10 MG] 10 mg PO DAILY 05/24/23 [History] Metoprolol Succinate 50 mg PO DAILY 05/24/23 [History] Hx Tetanus, Diphtheria Vaccination/Date Given: Yes Hx Influenza Vaccination/Date Given: Yes Hx Pneumococcal Vaccination/Date Given: No Immunizations Up to Date: Yes Travel Risk - International Travel Have you traveled outside of the country in past 3 weeks: No - Emerging Infectious Disease Are you exhibiting symptoms associated with any current EIDs: No - Review of Systems Constitutional: No Symptoms, No Fever, No Chills Eyes: No Symptoms Ears, Nose, & Throat: No Symptoms Respiratory: No Symptoms, No Cough, No Dyspnea Cardiac: No Symptoms, No Chest Pain, No Edema, No Syncope Abdominal/Gastrointestinal: No Symptoms, No Abdominal Pain, No Nausea, No Vomiting, No Diarrhea Genitourinary Symptoms: No Symptoms, No Dysuria Musculoskeletal: No Symptoms, No Back Pain, No Neck Pain Skin: No Symptoms, No Rash Neurological: No Symptoms, No Dizziness, No Focal Weakness, No Sensory Changes Psychological: No Symptoms Endocrine: No Symptoms Hematologic/Lymphatic: No Symptoms Immunological/Allergic: No Symptoms All Other Systems: Reviewed and Negative - Past Medical History Pertinent Past Medical History: Yes Neurological History: No Pertinent History ENT History: No Pertinent History Cardiac History: Hypertension Respiratory History: Asthma, COPD Endocrine Medical History: No Pertinent History Musculoskeletal History: Fractures GI Medical History: No Pertinent History History: No Pertinent History Psycho-Social History: No Pertinent History Male Reproductive Disorders: No Pertinent History Other Medical History: pt is a poor historian, and unsure. Completed to best of ability. - Past Surgical History Past Surgical History: Yes Neuro Surgical History: No Pertinent History Cardiac: No Pertinent History Respiratory: No Pertinent History Gastrointestinal: No Pertinent History Genitourinary: No Pertinent History Musculoskeletal: No Pertinent History Male Surgical History: No Pertinent History Other Surgical History: SPLEEN REMOVED-several years ago Significant Family History: no pertinent family hx - Social History Smoking Status: Former smoker How long have you smoked: YRS Exposure to second hand smoke: Yes Drug Use: none Patient Lives Alone: Yes - Nursing Vital Signs Nursing Vital Signs: Initial Vital Signs Temperature 97.9 F 06/22/23 21:30 Pulse Rate 77 06/22/23 21:30 Respiratory Rate 18 06/22/23 21:30 Blood Pressure 141/89 06/22/23 21:30 O2 Sat by Pulse Oximetry 98 06/22/23 21:30 Pain Scale Pain Intensity 8 - Physical Exam General Appearance: no apparent distress, alert Eye Exam: PERRL/EOMI, eyes nml inspection Ears, Nose, Throat Exam: normal ENT inspection, TMs normal, pharynx normal, moist mucous membranes Neck Exam: normal inspection, non-tender, supple, full range of motion Respiratory Exam: normal breath sounds, lungs clear, airway intact, No respiratory distress Cardiovascular Exam: regular rate/rhythm, normal heart sounds, normal peripheral pulses Gastrointestinal/Abdomen Exam: soft, normal bowel sounds, No tenderness, No mass Back Exam: normal inspection, normal range of motion, No CVA tenderness, No vertebral tenderness Extremity Exam: normal inspection, normal range of motion, pelvis stable, pedal edema, other (2+ lower extremity pitting edema.) Neurologic Exam: alert, oriented x 3, cooperative, normal mood/affect, nml cerebellar function, nml station & gait, sensation nml, No motor deficits Skin Exam: normal color, warm, dry, No rash Lymphatic Exam: No adenopathy SpO2 Interpretation: normal SpO2: 98 O2 Delivery: Room Air - Course Nursing assessment & vital signs reviewed: Yes EKG Interpreted by Me: RATE (80), Sinus Rhythm, NORMAL AXIS, NORMAL INTERVALS (EKG similar to EKG dated 05/31/2023) - Radiology Ultrasound Exam Venous Lower Extremity Ultrasound: tele radiology report (No right or left lower extremity DVT seen) Ordered Tests: Active Orders 24 hr Category Date Time Status AMA [Release AMA] OM.NOW Care 06/23/23 01:10 Ordered [employer] Superintendent STAT Care 06/22/23 21:40 Active EKG-ER Only STAT Care 06/22/23 21:39 Active Pulse Oximetry (ED) STAT Care 06/22/23 21:39 Active VENOUS BILATERAL EXTREMITY [US] Stat Exams 06/22/23 23:15 Taken BLOOD CULTURE Stat Lab 06/22/23 22:10 Received CBC W DIFF Stat Lab 06/22/23 22:10 Completed CMP Stat Lab 06/22/23 22:10 Completed NT PRO BNPII Stat Lab 06/22/23 22:10 Completed TROPONIN Q4H Lab 06/22/23 22:10 Completed TROPONIN Q4H Lab 06/23/23 00:42 Received TROPONIN Q4H Lab 06/23/23 05:45 Ordered UA W/RFX UR CULTURE Stat Lab 06/22/23 22:55 Completed Urine Triage Profile Stat Lab 06/22/23 22:55 Received Medication Summary Discontinued Medications Generic Name Dose Route Start Last Admin Trade Name Henryq PRN Reason Stop Dose Admin Acetaminophen 1,000 mg 06/23/23 00:40 06/23/23 00:44 Acetaminophen 500 Mg Tablet PO 06/23/23 00:41 1,000 mg STAT STA Administration Acetaminophen Confirm 06/23/23 00:41 Acetaminophen 500 Mg Tablet Administered 06/23/23 00:42 Dose 1,000 mg .ROUTE .STK-MED ONE Ketorolac Tromethamine 30 mg 06/22/23 23:12 06/22/23 23:20 Ketorolac Tromethamine 30 Mg/Ml Inj IV 06/22/23 23:13 30 mg STAT ONE Administration Ketorolac Tromethamine Confirm 06/22/23 23:15 Ketorolac Tromethamine 30 Mg/Ml Inj Administered 06/22/23 23:16 Dose 30 mg .ROUTE .STK-MED ONE Lab/Rad Data: Laboratory Result Diagrams 06/22/23 22:10 06/22/23 22:10 Laboratory Results 06/23/23 06/22/23 06/22/23 Range/Units 00:42 22:55 22:10 WBC (4.0-10.5) x10^3/uL RBC (4.1-5.6) x10^6/uL Hgb (12.5-18.0) g/dL Hct (42-50) % MCV (78-100) fL MCH (26-32) pg MCHC (32-36) g/dL RDW (11.5-14.0) % Plt Count (150-450) x10^3/uL MPV (7.5-11.0) fL Gran % (36.0-66.0) % Immature Gran % (Auto) (0.00-0.4) % Nucleat RBC Rel Count (0.00-0.1) % Eos # (Auto) (0-0.5) x10^3/uL Immature Gran # (Auto) (0.00-0.03) x10^3u/L Absolute Lymphs (auto) (1.0-4.6) x10^3/uL Absolute Monos (auto) (0.0-1.3) x10^3/uL Absolute Nucleated RBC (0.00-0.01) x10^3u/L Lymphocytes % (24.0-44.0) % Monocytes % (0.0-12.0) % Eosinophils % (0.00-5.0) % Basophils % (0.0-0.4) % Absolute Granulocytes (1.4-6.9) x10^3/uL Basophils # (0-0.4) x10^3/uL Sodium (135-145) mmol/L Potassium (3.5-5.1) mmol/L Chloride (98-107) mmol/L Carbon Dioxide (22-30) mmol/L Anion Gap (5-15) MEQ/L BUN (9-20) mg/dL Creatinine (0.66-1.25) mg/dL Estimated GFR ML/MIN Glucose (74-106) mg/dL Calcium (8.4-10.2) mg/dL Total Bilirubin (0.2-1.3) mg/dL AST (17-59) U/L ALT (0-50) U/L Alkaline Phosphatase (38-126) U/L Troponin I < 0.012 (0.000-0.034) ng/mL NT-Pro-B Natriuret Pep TECHNICAL DIRECTOR Serum Total Protein (6.3-8.2) g/dL Albumin (3.5-5.0) g/dL Urine Color Yellow (Yellow) Urine Appearance Clear (Clear) Urine pH 6.5 (4.6-8.0) Ur Specific [place] 1.025 (1.005-1.030) Urine Protein Negative (Negative) Urine Glucose (UA) 500 A (Negative) mg/dL Urine Ketones Negative (Negative) Urine Blood Negative (Negative) Urine Nitrite Negative (Negative) Urine Bilirubin Negative (Negative) Urine Urobilinogen 1.0 A (0.2) mg/dL Ur Leukocyte Esterase Negative (Negative) U Hyaline Cast (Auto) NONE SEEN (0-2) /LPF Urine Microscopic RBC 0-2 (0-5) /HPF Urine Microscopic WBC 0-2 (0-5) /HPF Ur Epithelial Cells None Seen (None Seen) /HPF Urine Bacteria None Seen (None Seen) /HPF Urine Culture Reflexed NO (NO) 06/22/23 06/22/23 06/22/23 Range/Units 22:10 22:10 22:10 WBC 10.2 (4.0-10.5) x10^3/uL RBC 5.06 (4.1-5.6) x10^6/uL Hgb 15.4 (12.5-18.0) g/dL Hct 47.8 (42-50) % MCV 94.5 (78-100) fL MCH 30.4 (26-32) pg MCHC 32.2 (32-36) g/dL RDW 13.6 (11.5-14.0) % Plt Count 426 (150-450) x10^3/uL MPV 9.5 (7.5-11.0) fL Gran % 60.8 (36.0-66.0) % Immature Gran % (Auto) 0.2 (0.00-0.4) % Nucleat RBC Rel Count 0.0 (0.00-0.1) % Eos # (Auto) 0.10 (0-0.5) x10^3/uL Immature Gran # (Auto) 0.02 (0.00-0.03) x10^3u/L Absolute Lymphs (auto) 2.45 (1.0-4.6) x10^3/uL Absolute Monos (auto) 1.35 H (0.0-1.3) x10^3/uL Absolute Nucleated RBC 0.00 (0.00-0.01) x10^3u/L Lymphocytes % 24.0 (24.0-44.0) % Monocytes % 13.2 H (0.0-12.0) % Eosinophils % 1.0 (0.00-5.0) % Basophils % 0.8 (0.0-0.4) % Absolute Granulocytes 6.19 (1.4-6.9) x10^3/uL Basophils # 0.08 (0-0.4) x10^3/uL Sodium 143 (135-145) mmol/L Potassium 4.3 (3.5-5.1) mmol/L Chloride 108 H (98-107) mmol/L Carbon Dioxide 26 (22-30) mmol/L Anion Gap 13.0 (5-15) MEQ/L BUN 22 H (9-20) mg/dL Creatinine 1.19 (0.66-1.25) mg/dL Estimated GFR 67.0 ML/MIN Glucose 80 (74-106) mg/dL Calcium 9.3 (8.4-10.2) mg/dL Total Bilirubin 0.50 (0.2-1.3) mg/dL AST 24 (17-59) U/L ALT 23 (0-50) U/L Alkaline Phosphatase 73 (38-126) U/L Troponin I < 0.012 (0.000-0.034) ng/mL NT-Pro-B Natriuret Pep Serum Total Protein 7.9 (6.3-8.2) g/dL Albumin 4.2 (3.5-5.0) g/dL Urine Color (Yellow) Urine Appearance (Clear) Urine pH (4.6-8.0) Ur Specific [place] (1.005-1.030) Urine Protein (Negative) Urine Glucose (UA) (Negative) mg/dL Urine Ketones (Negative) Urine Blood (Negative) Urine Nitrite (Negative) Urine Bilirubin (Negative) Urine Urobilinogen (0.2) mg/dL Ur Leukocyte Esterase (Negative) U Hyaline Cast (Auto) (0-2) /LPF Urine Microscopic RBC (0-5) /HPF Urine Microscopic WBC (0-5) /HPF Ur Epithelial Cells (None Seen) /HPF Urine Bacteria (None Seen) /HPF Urine Culture Reflexed (NO) - Progress Progress: improved Progress Note: 67-year-old male presents to our ED for evaluation of leg swelling and hand swelling. Physical exam reveals 1+ lower extremity pitting edema. Otherwise unremarkable. Preliminary workup negative. Initial troponin negative. EKG similar to previous EKG. Ultrasound bilateral lower extremity negative for DVT patient refused to wait for the second troponin. Patient left AGAINST MEDICAL ADVICE. Patient is of sound mind. Patient is appropriate to make informed and independent medical decisions. Patient understands that leaving AGAINST MEDICAL ADVICE can result in delayed diagnosis, increased risk of morbidity, mortality, short and long-term disability including . In spite of these risks, patient has decided to leave AGAINST MEDICAL ADVICE. Patient understands that he may return to our ED at any point if he reconsiders. Patient agrees to follow-up with his primary care doctor within 48 hours for reevaluation. Patient voices no other complaints or concerns at this time. We will release patient AGAINST MEDICAL ADVICE per their request. Portions of this note were created with voice recognition technology. There may be grammatical, spelling, punctuation or sound alike errors Complexity problem addressed is moderate acute complicated No critical care time Complexity of data reviewed and analyzed is moderate. Test ordered test reviewed results analyzed and correlated clinically with history and physical exam. Risk of complication and or risk of morbidity/mortality patient management is low Vital stable. Patient discharged AMA. Time spent to discharge AMA is approximately 15 minutes. 06/23/23 01:12 Counseled pt/family regarding: lab results, diagnosis, need for follow-up - Departure Departure Disposition: AMA Clinical Impression: Leg swelling, Glucosuria Condition: Stable Critical Care Time: No Referrals: STEWART KENDALL MD [Primary Care Provider] - Follow up/PCP as directed Additional Instructions: Discharge/Care Plan RADAMES LEUNG was seen on 06/23/23 in the Emergency Room. The patient was counseled regarding Diagnosis,Lab results, Imaging studies, need for follow up and when to return to the Emergency Room. Prescriptions given: Discharge Note I have spoken with the patient and/or caregivers. I have explained the patient's condition, diagnosis and treatment plan based on the information available to me at this time. I have answered the patient's and/or caregiver's questions and addressed any concerns. The patient and/or caregivers have as good understanding of the patient's diagnosis, condition and treatment plan as can be expected at this point. The vital signs have been stable. The patient's condition is stable and appropriate for discharge from the emergency department. The patient will pursue further outpatient evaluation with the primary care physician or other designated or consulting physician as outlined in the discharge instructions. The patient and/or caregivers are agreeable to this plan of care and follow-up instructions have been explained in detail. The patient and/or caregivers have received these instruction. The patient/and or caregivers are aware that any significant change in condition or worsening of symptoms should prompt an immediate return to this or the closest emergency department or call 911.
[2023-06-22 22:33] LABS: ALBUMIN 4.2 g/dL (3.5-5.0); BILIRUBIN,TOTAL 0.5 mg/dL (0.2-1.3); Calcium 9.3 mg/dL (8.4-10.2); Creatinine 1 1.19 mg/dL (0.66-1.25); Potassium 4.3 mmol/L (3.5-5.1); Total Protein 7.9 g/dL (6.3-8.2)
[2023-06-22 23:03] LABS: Appearance Clear (Clear); Bacteria None Seen /HPF (None Seen); Bilirubin Negative (Negative); Blood Negative (Negative); Epithelial Cells None Seen /HPF (None Seen); Glucose, Urine 500 mg/dL (Negative); Hyaline Casts NONE SEEN /LPF (0-2); Ketones Negative (Negative); Leukocyte Esterase Negative (Negative); Nitrite Negative (Negative); Ph 6.5 (4.6-8.0); Protein,Urine Dip Negative (Negative); RBC 0-2 /HPF (0-5); Specific Gravity 1.025 (1.005-1.030); WBC 0-2 /HPF (0-5)
[2023-06-22 23:04] LABS: ADD URINE CULTURE? NO (NO)
[2023-06-22] MEDS ORDERED: TORAdol 30 mg Injection ONE (23:15)
[2023-06-22] MEDS: TORAdol 30 mg Injection IV ONE (23:20)
[2023-06-23] MEDS ORDERED: TYLENOL EXTRA STRENGTH 500 MG ONE (00:41)
[2023-06-23] MEDS: TYLENOL EXTRA STRENGTH 500 MG PO STA (00:44)
[2023-06-23 00:49] VITALS: BP 145/84; PULSE 85; RESP 23
[2023-06-23 01:13] VITALS: O2SAT 98
--- NOTE | 2023-06-23 08:49 | XRAY ---
Indication: Pain and swelling. Two-dimensional sonogram and color Doppler imaging major venous vessels left and right leg performed. Comparison: None No thrombus seen in the examined deep venous vessels left and right leg including greater saphenous vein. Veins demonstrate normal compressibility. Venous waveforms are normal with and without augmentation. Impression: Left and right legs negative for DVT. Comment: Preliminary report was given.
== END 2023-06-23 01:15 | disposition left against medical advice (07) ==
LOC: ED 21:06
DX: M79.89 Other specified soft tissue disorders (principal); R60.0 Localized edema; R81 Glycosuria; I10 Essential (primary) hypertension; Z79.899 Other long term (current) drug therapy
CPT/HCPCS: 36415; 80053; 80307; 81001; 83880; 84484; 85025; 87040; 93005; 93041; 93970; 94760; 96374; 99284; J1885; A9270-GY

== ENCOUNTER 2023-09-19 04:00 | Emergency (ER) | payer MEDICARE ==
[2023-09-19 04:18] VITALS: TEMP 98.1
--- NOTE | 2023-09-19 04:30 | ERPHSYRPT ---
- History of Present Illness Time Seen by Provider: 09/19/23 04:20 Historian: patient Exam Limitations: no limitations Patient Subjective Stated Complaint: chest pain since 0200, pt woke up from a sleep in his car with sudden L sided chest pain, pt was a [facility] less than 24 hrs ago with same complaint and pt stated they didn't find anything; pt also informed staff that his sister smoke meth around him but pt denies that he did meth himself. Triage Nursing Assessment: pt amulatory to bed with a slow gait, pt alert and oriented x3, pt c/o intermittent L sided chest pain, pt denies any pain currently, pt urinated on himself, pt having PVC displayed on tariff expert, pt slightly short of breath Physician History: This is a 67-year-old white male patient of Dr. Rosales who presents to the emergency department with sudden onset of left-sided chest pain that began at 2 AM this morning that woke him up out of his sleep in his car. Less than 24 hours ago, patient was at [facility] emergency department for the same issue. That is, chest pain. Per his report, the [facility] emergency department did not find anything and patient was sent home. Patient states that he was exposed to methamphetamines (his sister and other people were smoking around him) but he himself was not smoking it. Patient has no chest pain now but he is mildly short of breath. We have requested the [facility] emergency department records and I will review those records and associated/attached laboratory and radiographic as well as EKG reports. Patient had a twelve-lead EKG on 06/22/2023 which showed normal sinus rhythm with a heart rate of 80s and in no acute findings. Patient has a history of asthma and COPD. Timing/Duration: today Activities at Onset: sleep Quality: sharpness Location: other Chest Pain Radiation: no radiation Severity of Pain-Max: mild (No chest pain now but when it came on at 2 AM was left anterior chest pain without radiation) Severity of Pain-Current: none Modifying Factors: Improves With: nothing Associated Symptoms: denies symptoms Prior Chest Pain/Cardiac Workup: recently seen/treated Aspirin Treatment Today: unknown Allergies/Adverse Reactions: Penicillins Allergy (Verified 09/19/23 04:19) Home Medications: No Reportable Medications [No Reported Medications] 09/19/23 [History] Hx Tetanus, Diphtheria Vaccination/Date Given: Yes Hx Influenza Vaccination/Date Given: No Hx Pneumococcal Vaccination/Date Given: No Travel Risk - International Travel Have you traveled outside of the country in past 3 weeks: No - Emerging Infectious Disease Are you exhibiting symptoms associated with any current EIDs: No - Review of Systems Constitutional: No Symptoms Eyes: No Symptoms Ears, Nose, & Throat: No Symptoms Respiratory: No Symptoms Cardiac: Chest Pain (Left anterior chest sharpness without radiation.Currently, patient has no chest pain) Abdominal/Gastrointestinal: No Symptoms Genitourinary Symptoms: No Symptoms Musculoskeletal: No Symptoms Skin: No Symptoms Neurological: No Symptoms Psychological: Drug Abuse, Anxiety Endocrine: No Symptoms Hematologic/Lymphatic: No Symptoms Immunological/Allergic: No Symptoms All Other Systems: Reviewed and Negative - Past Medical History Pertinent Past Medical History: Yes Neurological History: No Pertinent History ENT History: No Pertinent History Cardiac History: Hypertension Respiratory History: Asthma, COPD Endocrine Medical History: No Pertinent History Musculoskeletal History: Fractures GI Medical History: No Pertinent History History: No Pertinent History Psycho-Social History: No Pertinent History Male Reproductive Disorders: No Pertinent History Other Medical History: pt is a poor historian, and unsure. Completed to best of ability. - Past Surgical History Past Surgical History: Yes Neuro Surgical History: No Pertinent History Cardiac: No Pertinent History Respiratory: No Pertinent History Gastrointestinal: No Pertinent History Genitourinary: No Pertinent History Musculoskeletal: No Pertinent History Male Surgical History: No Pertinent History Other Surgical History: SPLEEN REMOVED-several years ago Significant Family History: no pertinent family hx - Social History Smoking Status: Former smoker How long have you smoked: YRS Exposure to second hand smoke: Yes Drug Use: none Patient Lives Alone: Yes - Social Determinants of Health Will the patient participate in the screening: Yes Do you worry about a steady place to live?: Yes Do you have any problems with any of the following?: Other In the past 12 months,have you had to go without utilities?: Yes Transportation Issues: Yes Has anyone in your support network made you feel unsafe?: No Have you or anyone in your house had to go without enough: Yes - Nursing Vital Signs Nursing Vital Signs: Initial Vital Signs Temperature 98.1 F 09/19/23 04:04 Pulse Rate 88 09/19/23 04:04 Respiratory Rate 36 H 09/19/23 04:04 Blood Pressure 164/88 09/19/23 04:04 O2 Sat by Pulse Oximetry 97 09/19/23 04:04 Pain Scale Pain Intensity 0 - Physical Exam General Appearance: no apparent distress, alert, anxiety Eye Exam: PERRL/EOMI, eyes nml inspection Ears, Nose, Throat Exam: normal ENT inspection, moist mucous membranes Neck Exam: normal inspection, non-tender, supple, full range of motion Respiratory Exam: normal breath sounds, lungs clear, airway intact, No chest tenderness, No respiratory distress Cardiovascular Exam: regular rate/rhythm, normal heart sounds, normal peripheral pulses Gastrointestinal/Abdomen Exam: soft, normal bowel sounds, No tenderness Rectal Exam: not done Back Exam: normal inspection, normal range of motion, No CVA tenderness, No vertebral tenderness Extremity Exam: normal inspection, normal range of motion, pelvis stable Neurologic Exam: alert, oriented x 3, cooperative, tubing oiler II-XII 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, normal mood/affect, nml cerebellar function, nml station & gait, sensation nml Skin Exam: normal color, warm, dry Lymphatic Exam: No adenopathy SpO2 Interpretation: normal SpO2: 97 O2 Delivery: Room Air - Course Nursing assessment & vital signs reviewed: Yes EKG Interpreted by Me: RATE (87), Sinus Rhythm, Left [place] Deviation (Borderline), NORMAL INTERVALS, Other (Acute ischemic changes on today's twelve- lead EKG. However, of concern is the patient has new onset multiple PVCs which he did not have when compared to twelve-lead EKG dated May 2023.) Ordered Tests: Active Orders 24 hr Category Date Time Status Window Tinter STAT Care 09/19/23 04:30 Active EKG-ER Only STAT Care 09/19/23 04:30 Active IV Insertion STAT Care 09/19/23 04:30 Active Pulse Oximetry (ED) STAT Care 09/19/23 04:30 Active ACO SDOH Referral ONCE Cons 09/19/23 04:19 Active CHEST 1 VIEW (PORTABLE) Stat Exams 09/19/23 04:30 Taken CBC W DIFF Stat Lab 09/19/23 04:30 Completed CMP Stat Lab 09/19/23 04:30 Completed D-DIMER QUANTITATIVE Stat Lab 09/19/23 04:30 Completed MAGNESIUM Stat Lab 09/19/23 04:30 Completed NT PRO BNPII Stat Lab 09/19/23 04:30 Completed TROPONIN Q4H Lab 09/19/23 04:30 Completed TROPONIN Q4H Lab 09/19/23 08:30 Ordered TROPONIN Q4H Lab 09/19/23 12:30 Ordered UA W/RFX UR CULTURE Stat Lab 09/19/23 04:58 Completed Urine Triage Profile Stat Lab 09/19/23 04:58 Completed Medication Summary Discontinued Medications Generic Name Dose Route Start Last Admin Trade Name Cara PRN Reason Stop Dose Admin Acetaminophen Confirm 09/19/23 05:18 Acetaminophen 325 Mg Tablet Administered 09/19/23 05:19 Dose 650 mg .ROUTE .STK-MED ONE Aspirin 324 mg 09/19/23 04:30 09/19/23 04:45 Aspirin 81 Mg Tab.Chew PO 09/19/23 04:31 324 mg STAT ONE Administration Aspirin Confirm 09/19/23 04:44 Aspirin 81 Mg Tab.Chew Administered 09/19/23 04:45 Dose 324 mg .ROUTE .STK-MED ONE Heparin Sodium (Beef Lung) 5,000 unit 09/19/23 05:50 09/19/23 06:02 Heparin 5000 Units/0.5 Ml 5,000 Unit/0.5 Ml Syr IV 09/19/23 05:51 5,000 unit STAT ONE Administration Heparin Sodium (Beef Lung) Confirm 09/19/23 05:56 Heparin 5000 Units/0.5 Ml 5,000 Unit/0.5 Ml Syr Administered 09/19/23 05:57 Dose 5,000 unit .ROUTE .STK-MED ONE Nitroglycerin 1 gm 09/19/23 05:50 09/19/23 06:02 Nitroglycerin 1 Gm Packet TOP 09/19/23 05:51 1 gm STAT ONE Administration Nitroglycerin Confirm 09/19/23 05:56 Nitroglycerin 1 Gm Packet Administered 09/19/23 05:57 Dose 1 gm .ROUTE .STK-MED ONE Ondansetron HCl 4 mg 09/19/23 04:30 09/19/23 04:46 Ondansetron Hcl 4 Mg/2 Ml Vial IV 09/19/23 04:31 4 mg STAT ONE Administration Ondansetron HCl Confirm 09/19/23 04:43 Ondansetron Hcl 4 Mg/2 Ml Vial Administered 09/19/23 04:44 Dose 4 mg .ROUTE .STK-MED ONE Lab/Rad Data: Laboratory Result Diagrams 09/19/23 04:30 09/19/23 04:30 Laboratory Results 09/19/23 09/19/23 09/19/23 Range/Units 04:58 04:58 04:30 WBC (4.23-9.07) x10^3/uL RBC (4.63-6.08) x10^6/uL Hgb (13.7-17.5) g/dL Hct (40.1-51.0) % MCV (79.0-92.2) fL MCH (25.7-32.2) pg MCHC (32.3-36.5) g/dL RDW (11.6-14.4) % Plt Count (163-337) x10^3/uL MPV (9.4-12.4) fL Gran % (34.0-67.9) % Immature Gran % (Auto) (0.001-0.429) % Nucleat RBC Rel Count (0.00-0.2) % Eos # (Auto) (0.04-0.54) x10^3/uL Immature Gran # (Auto) (0.001-0.031) x10^3u/L Absolute Lymphs (auto) (1.32-3.57) x10^3/uL Absolute Monos (auto) (0.30-0.82) x10^3/uL Absolute Nucleated RBC (0.00-0.012) x10^3u/L Lymphocytes % (21.8-53.1) % Monocytes % (5.3-12.2) % Eosinophils % (0.8-7.0) % Basophils % (0.2-1.2) % Absolute Granulocytes (1.78-5.38) x10^3/uL Basophils # (0.01-0.08) x10^3/uL D-Dimer 0.70 H* (0.0-0.50) mg/L Sodium (135-145) mmol/L Potassium (3.5-5.1) mmol/L Chloride (98-107) mmol/L Carbon Dioxide (22-30) mmol/L Anion Gap (5-15) MEQ/L BUN (9-20) mg/dL Creatinine (0.66-1.25) mg/dL Estimated GFR ML/MIN Glucose (74-106) mg/dL Calcium (8.4-10.2) mg/dL Magnesium (1.6-2.3) mg/dL Total Bilirubin (0.2-1.3) mg/dL AST (17-59) U/L ALT (0-50) U/L Alkaline Phosphatase (38-126) U/L Troponin I (0.000-0.033) ng/mL NT-Pro-B Natriuret Pep (<300) pg/mL Serum Total Protein (6.3-8.2) g/dL Albumin (3.5-5.0) g/dL Urine Color Yellow (Yellow) Urine Appearance Clear (Clear) Urine pH 5.5 (4.6-8.0) Ur Specific [place] 1.025 (1.005-1.030) Urine Protein Trace A (Negative) Urine Glucose (UA) 250 A (Negative) mg/dL Urine Ketones Trace A (Negative) Urine Blood Negative (Negative) Urine Nitrite Negative (Negative) Urine Bilirubin Negative (Negative) Urine Urobilinogen 1.0 A (0.2) mg/dL Ur Leukocyte Esterase Negative (Negative) U Hyaline Cast (Auto) NONE SEEN (0-2) /LPF Urine Microscopic RBC 0-2 (0-5) /HPF Urine Microscopic WBC 0-2 (0-5) /HPF Ur Epithelial Cells None Seen (None Seen) /HPF Urine Bacteria None Seen (None Seen) /HPF Urine Culture Reflexed NO (NO) Urine Opiates Level NEGATIVE (NEGATIVE) Ur Methadone NEGATIVE (NEGATIVE) Urine Barbiturates NEGATIVE (NEGATIVE) Ur Phencyclidine (PCP) NEGATIVE (NEGATIVE) Urine Amphetamine POSITIVE A (NEGATIVE) U Benzodiazepine Level NEGATIVE (NEGATIVE) Urine Cocaine NEGATIVE (NEGATIVE) Urine Marijuana (THC) NEGATIVE (NEGATIVE) 09/19/23 09/19/23 Range/Units 04:30 04:30 WBC 10.3 H (4.23-9.07) x10^3/uL RBC 5.41 (4.63-6.08) x10^6/uL Hgb 16.4 (13.7-17.5) g/dL Hct 49.5 (40.1-51.0) % MCV 91.5 (79.0-92.2) fL MCH 30.3 (25.7-32.2) pg MCHC 33.1 (32.3-36.5) g/dL RDW 13.3 (11.6-14.4) % Plt Count 461 H (163-337) x10^3/uL MPV 9.7 (9.4-12.4) fL Gran % 56.6 (34.0-67.9) % Immature Gran % (Auto) 0.2 (0.001-0.429) % Nucleat RBC Rel Count 0.0 (0.00-0.2) % Eos # (Auto) 0.16 (0.04-0.54) x10^3/uL Immature Gran # (Auto) 0.02 (0.001-0.031) x10^3u/L Absolute Lymphs (auto) 2.98 (1.32-3.57) x10^3/uL Absolute Monos (auto) 1.20 H (0.30-0.82) x10^3/uL Absolute Nucleated RBC 0.00 (0.00-0.012) x10^3u/L Lymphocytes % 28.9 (21.8-53.1) % Monocytes % 11.6 (5.3-12.2) % Eosinophils % 1.6 (0.8-7.0) % Basophils % 1.1 (0.2-1.2) % Absolute Granulocytes 5.84 H (1.78-5.38) x10^3/uL Basophils # 0.11 H (0.01-0.08) x10^3/uL D-Dimer (0.0-0.50) mg/L Sodium 141 (135-145) mmol/L Potassium 3.8 (3.5-5.1) mmol/L Chloride 105 (98-107) mmol/L Carbon Dioxide 28 (22-30) mmol/L Anion Gap 11.8 (5-15) MEQ/L BUN 16 (9-20) mg/dL Creatinine 1.41 H (0.66-1.25) mg/dL Estimated GFR 54.6 ML/MIN Glucose 80 (74-106) mg/dL Calcium 9.1 (8.4-10.2) mg/dL Magnesium 2.2 (1.6-2.3) mg/dL Total Bilirubin 0.80 (0.2-1.3) mg/dL AST 31 (17-59) U/L ALT 18 (0-50) U/L Alkaline Phosphatase 73 (38-126) U/L Troponin I 0.633 H* (0.000-0.033) ng/mL NT-Pro-B Natriuret Pep 355 (<300) pg/mL Serum Total Protein 7.9 (6.3-8.2) g/dL Albumin 4.3 (3.5-5.0) g/dL Urine Color (Yellow) Urine Appearance (Clear) Urine pH (4.6-8.0) Ur Specific [place] (1.005-1.030) Urine Protein (Negative) Urine Glucose (UA) (Negative) mg/dL Urine Ketones (Negative) Urine Blood (Negative) Urine Nitrite (Negative) Urine Bilirubin (Negative) Urine Urobilinogen (0.2) mg/dL Ur Leukocyte Esterase (Negative) U Hyaline Cast (Auto) (0-2) /LPF Urine Microscopic RBC (0-5) /HPF Urine Microscopic WBC (0-5) /HPF Ur Epithelial Cells (None Seen) /HPF Urine Bacteria (None Seen) /HPF Urine Culture Reflexed (NO) Urine Opiates Level (NEGATIVE) Ur Methadone (NEGATIVE) Urine Barbiturates (NEGATIVE) Ur Phencyclidine (PCP) (NEGATIVE) Urine Amphetamine (NEGATIVE) U Benzodiazepine Level (NEGATIVE) Urine Cocaine (NEGATIVE) Urine Marijuana (THC) (NEGATIVE) - Progress Progress: improved, re-examined Air Movement: good Progress Note: 09/19/23 04:41 My medical decision making and the assignment of moderate complexity to this patient's medical issue today is based on review of the patient's past medical history, review of the patient's medication list, history present illness and physical findings on examination. The workup in this patient includes placement at of an intravenous line, 325 mg of aspirin if he has not already had that within the last 24 hours, CBC, CMP, magnesium level, twelve-lead EKG, troponin level, D-dimer level, BNP and chest x-ray. Differential diagnosis includes but is not limited to musculoskeletal pain, coronary artery disease/myocardial infarction, electrolyte abnormalities, arrhythmia, pulmonary embolus, pneumonia, CHF, methamphetamine induced 09/19/23 06:00 I interpreted the patient's laboratory data results. The patient has an elevated troponin level as well as an elevated D-dimer level. My concern at this patient is that he is not reliable and he is not the best historian. In addition, he has been seen now in 3 different hospital emergency departments on 3 different days. I reviewed the records from [facility] appears that he was seen at [facility] in [facility] on 09/17/2023. The report is that the patient ruled out for cardiac issue. On 09/18/2023, he was seen at [facility] emergency department in the morning and had 2 negative troponin levels. His twelve-lead EKG, as reported in the notes, is similar to our twelve-lead EKG which shows new PVCs when compared to a twelve-lead EKG in our hospital in May 2023. I am placing the patient on a intravenous dose of heparin and placing Nitropaste on him at this point. Patient needs to be transferred to high-level care but staff sole conditioner that can acutely intervene if necessary. I interpreted the patient's chest x-ray preliminary report. There is a questionable of atelectasis versus early infiltration right lung base. 09/19/23 06:19 Patient was asked if he would be willing to be transferred to [facility] and he agrees to be transferred. He was made aware of his current diagnosis. I spoke with Ne at the transfer center for [facility] in [facility]. Dr. Juan Manuel Figueroa is the accepting physician at that facility. I provided Ne with complete history physical exam findings, radiographic, laboratory and twelve-lead EKG results as I know them. Blood Culture(s) Obtained: No Antibiotics given: No Counseled pt/family regarding: lab results, diagnosis, rad results Medical Desision Making - Diagnostic Testing Diagnostic test were ordered, analyzed, and reviewed by me: Yes Radiological Interpretation: Interpreted by me - Risk of complications The pt has a high risk of morbidity or mortality based on: Decision regarding hospitilization or escalation of hosp level of care - Departure Departure Disposition: Transfer Clinical Impression: Acute coronary syndrome with high troponin Condition: Stable Critical Care Time: No Referrals: STEWART ROSALES MD [Primary Care Provider] - Follow up/PCP as directed
[2023-09-19 04:41] LABS: Absolute Neutrophil Ct (ANC) 5.84 x10^3/uL (1.78-5.38); BASOPHIL % 1.1 % (0.2-1.2); Basophil (Absolute #) 0.11 x10^3/uL (0.01-0.08); Eosinophil % 1.6 % (0.8-7.0); Eosinophil (Absolute #) 0.16 x10^3/uL (0.04-0.54); Hematocrit 49.5 % (40.1-51.0); Hemoglobin 16.4 g/dL (13.7-17.5); IMMATURE GRAN # 0.02 x10^3u/L (0.001-0.031); IMMATURE GRAN % 0.2 % (0.001-0.429); Lymphocyte (Absolute #) 2.98 x10^3/uL (1.32-3.57); Lymphocytes % 28.9 % (21.8-53.1); Mean Cell Volume 91.5 fL (79.0-92.2); Mean Corpuscular Hemoglobin 30.3 pg (25.7-32.2); Mean Corpuscular Hgb Concent. 33.1 g/dL (32.3-36.5); Mean Platelet Volume 9.7 fL (9.4-12.4); Monocytes % 11.6 % (5.3-12.2); Neutrophil % 56.6 % (34.0-67.9); Platelet Count 461 x10^3/uL (163-337); Red Blood Count 5.41 x10^6/uL (4.63-6.08); Red Cell Distribution Width 13.3 % (11.6-14.4); White Blood Count 10.3 x10^3/uL (4.23-9.07)
[2023-09-19] MEDS ORDERED: Zofran 4 MG/2 ML VIAL ONE (04:43)
[2023-09-19] MEDS ORDERED: BABY ASPIRIN 81 MG CHEW ONE (04:44)
[2023-09-19] MEDS: BABY ASPIRIN 81 MG CHEW PO ONE (04:45)
[2023-09-19] MEDS: Zofran 4 MG/2 ML VIAL IV ONE (04:46)
[2023-09-19 05:09] LABS: ALBUMIN 4.3 g/dL (3.5-5.0); ANION GAP 11.8 MEQ/L (5-15); BILIRUBIN,TOTAL 0.8 mg/dL (0.2-1.3); Calcium 9.1 mg/dL (8.4-10.2); Creatinine 1 1.41 mg/dL (0.66-1.25); EST GLOMERULAR FILTRATION RATE 54.6 ML/MIN; MAGNESIUM 2.2 mg/dL (1.6-2.3); Potassium 3.8 mmol/L (3.5-5.1); Total Protein 7.9 g/dL (6.3-8.2)
[2023-09-19 05:17] LABS: Appearance Clear (Clear); Bacteria None Seen /HPF (None Seen); Bilirubin Negative (Negative); Blood Negative (Negative); Epithelial Cells None Seen /HPF (None Seen); Glucose, Urine 250 mg/dL (Negative); Hyaline Casts NONE SEEN /LPF (0-2); Ketones Trace (Negative); Leukocyte Esterase Negative (Negative); Nitrite Negative (Negative); Ph 5.5 (4.6-8.0); Protein,Urine Dip Trace (Negative); RBC 0-2 /HPF (0-5); Specific Gravity 1.025 (1.005-1.030); WBC 0-2 /HPF (0-5)
[2023-09-19] MEDS ORDERED: TYLENOL 325 MG ONE (05:18)
[2023-09-19 05:23] LABS: ADD URINE CULTURE? NO (NO)
[2023-09-19 05:27] LABS: Barbiturate,Urine NEGATIVE (NEGATIVE); Benzodiazepine,Urine NEGATIVE (NEGATIVE); Cocaine,Urine NEGATIVE (NEGATIVE); Methadone,Urine NEGATIVE (NEGATIVE); Opiate,Urine NEGATIVE (NEGATIVE); PCP,Urine NEGATIVE (NEGATIVE); THC,Urine NEGATIVE (NEGATIVE)
[2023-09-19 05:44] LABS: TROPONIN 0.633 ng/mL (0.000-0.033)
[2023-09-19 05:53] VITALS: BP 125/96; PULSE 88; RESP 17
[2023-09-19] MEDS ORDERED: NITRO-BID 2% UD PACKETS ONE (05:56)
[2023-09-19] MEDS ORDERED: HEPARIN 5000 UNITS/0.5 ML (HIGH RISK MED) ONE (05:56)
[2023-09-19 06:00] LABS: Amphetamine,Urine POSITIVE (NEGATIVE)
[2023-09-19] MEDS: NITRO-BID 2% UD PACKETS TOP ONE (06:02)
[2023-09-19] MEDS: HEPARIN 5000 UNITS/0.5 ML (HIGH RISK MED) IV ONE (06:02)
[2023-09-19 06:05] VITALS: O2SAT 97
--- NOTE | 2023-09-19 07:24 | XRAY ---
Indication: Chest pain. Comparison: May 24, 2023 Portable chest unchanged again with mild left hemidiaphragm elevation and adjacent subsegmental atelectasis. Remaining heart and lungs unremarkable again with incidental right lung calcified granuloma. Bony thorax intact again with mild degenerative changes. No new/acute findings.
== END 2023-09-19 06:33 | disposition left against medical advice (07) ==
LOC: ED 04:00
DX: I24.9 Acute ischemic heart disease, unspecified (principal); R77.8 Other specified abnormalities of plasma proteins; R07.9 Chest pain, unspecified; I10 Essential (primary) hypertension; Z59.02 Unsheltered homelessness; Z59.12 Inadequate housing utilities; Z59.41 Food insecurity; Z59.82 Transportation insecurity
CPT/HCPCS: 36000; 36415; 71045; 80053; 80307; 81001; 83735; 83880; 84484; 85025; 85379; 93005; 93041; 94760; 96374; 99284; J1644; J2405; A9270-GY

== ENCOUNTER 2023-09-22 04:57 | Observation (INO) | payer MEDICARE ==
--- NOTE | 2023-09-22 05:15 | ERPHSYRPT ---
- History of Present Illness Time Seen by Provider: 09/22/23 05:08 Historian: patient Exam Limitations: no limitations Physician History: 67-year-old male presents to our ED for evaluation of left-sided chest pain that started this evening. Patient was in our ED for the same on 09/19/2023. Patient was found to have an elevated troponin. Patient was being transferred to [facility] at that time when he left AMA. Pain described as an ache that is localized. No radiation. Pain associated with shortness of breath. No trauma no fever. No nausea vomiting diaphoresis. Symptoms are moderate in intensity. No specific worsening improving factors. Patient voices no other complaints or concerns at this time. Portions of this note were created with voice recognition technology. There may be grammatical, spelling, punctuation or sound alike errors Timing/Duration: today Activities at Onset: none Quality: aching Location: other (Left chest) Chest Pain Radiation: no radiation Severity of Pain-Max: moderate Severity of Pain-Current: mild Modifying Factors: Improves With: nothing Associated Symptoms: shortness of breath Prior Chest Pain/Cardiac Workup: no prior chest pain Nitro Today/Relief: no nitro taken today Aspirin Treatment Today: no aspirin today Allergies/Adverse Reactions: Penicillins Allergy (Verified 09/22/23 05:39) Home Medications: No Reportable Medications [No Reported Medications] 09/19/23 [History] Hx Tetanus, Diphtheria Vaccination/Date Given: Yes Hx Influenza Vaccination/Date Given: No Hx Pneumococcal Vaccination/Date Given: No Travel Risk - Emerging Infectious Disease Are you exhibiting symptoms associated with any current EIDs: No - Review of Systems Constitutional: No Symptoms, No Fever, No Chills Eyes: No Symptoms Ears, Nose, & Throat: No Symptoms Respiratory: No Symptoms, No Cough, No Dyspnea Cardiac: No Symptoms, No Chest Pain, No Edema, No Syncope Abdominal/Gastrointestinal: No Symptoms, No Abdominal Pain, No Nausea, No Vomiting, No Diarrhea Genitourinary Symptoms: No Symptoms, No Dysuria Musculoskeletal: No Symptoms, No Back Pain, No Neck Pain Skin: No Symptoms, No Rash Neurological: No Symptoms, No Dizziness, No Focal Weakness, No Sensory Changes Psychological: No Symptoms Endocrine: No Symptoms Hematologic/Lymphatic: No Symptoms Immunological/Allergic: No Symptoms All Other Systems: Reviewed and Negative - Past Medical History Pertinent Past Medical History: Yes Neurological History: No Pertinent History ENT History: No Pertinent History Cardiac History: Hypertension Respiratory History: Asthma, COPD Endocrine Medical History: No Pertinent History Musculoskeletal History: Fractures GI Medical History: No Pertinent History History: No Pertinent History Psycho-Social History: No Pertinent History Male Reproductive Disorders: No Pertinent History Other Medical History: pt is a poor historian, and unsure. Completed to best of ability. - Past Surgical History Past Surgical History: Yes Neuro Surgical History: No Pertinent History Cardiac: No Pertinent History Respiratory: No Pertinent History Gastrointestinal: No Pertinent History Genitourinary: No Pertinent History Musculoskeletal: No Pertinent History Male Surgical History: No Pertinent History Other Surgical History: SPLEEN REMOVED-several years ago Significant Family History: no pertinent family hx - Social History Smoking Status: Former smoker How long have you smoked: YRS Exposure to second hand smoke: Yes Drug Use: none Patient Lives Alone: Yes - Social Determinants of Health Will the patient participate in the screening: Yes Do you worry about a steady place to live?: Yes In the past 12 months,have you had to go without utilities?: Yes Transportation Issues: Yes Has anyone in your support network made you feel unsafe?: No Have you or anyone in your house had to go without enough: Yes - Nursing Vital Signs Nursing Vital Signs: Initial Vital Signs Temperature 97.3 F 09/22/23 04:58 Pulse Rate 48 L 09/22/23 04:58 Respiratory Rate 20 09/22/23 04:58 O2 Sat by Pulse Oximetry 96 09/22/23 04:58 Pain Scale Pain Intensity 7 - Physical Exam General Appearance: no apparent distress, alert Eye Exam: PERRL/EOMI, eyes nml inspection Ears, Nose, Throat Exam: normal ENT inspection, moist mucous membranes Neck Exam: normal inspection, non-tender, supple, full range of motion Respiratory Exam: normal breath sounds, lungs clear, airway intact, No respiratory distress Cardiovascular Exam: regular rate/rhythm, normal heart sounds Gastrointestinal/Abdomen Exam: soft, No tenderness, No mass Back Exam: normal inspection, No CVA tenderness, No vertebral tenderness Extremity Exam: normal inspection, normal range of motion Neurologic Exam: alert, oriented x 3, cooperative, normal mood/affect, sensation nml, No motor deficits Skin Exam: normal color, warm, dry Lymphatic Exam: No adenopathy SpO2 Interpretation: normal SpO2: 96 O2 Delivery: Room Air - Course Nursing assessment & vital signs reviewed: Yes EKG Interpreted by Me: RATE (90), Sinus Rhythm, NORMAL AXIS, NORMAL INTERVALS (Nonsustained ventricular tachycardia/bigeminy) - Radiology Exams Chest X-ray Interpretation: Interpreted by me (No new or acute findings) Ordered Tests: Active Orders 24 hr Category Date Time 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 09/22/23 05:05 Active EKG-ER Only STAT Care 09/22/23 05:04 Active IV Insertion STAT Care 09/22/23 05:04 Active Pulse Oximetry (ED) STAT Care 09/22/23 05:04 Active ACO SDOH Referral ONCE Cons 09/22/23 05:25 Active CHEST 1 VIEW (PORTABLE) Stat Exams 09/22/23 05:07 Taken CBC W DIFF Stat Lab 09/22/23 05:23 Completed CMP Stat Lab 09/22/23 05:23 Completed ETHYL ALCOHOL Stat Lab 09/22/23 05:23 Completed MAGNESIUM Stat Lab 09/22/23 05:23 Completed NT PRO BNPII Stat Lab 09/22/23 05:23 Completed TROPONIN Q4H Lab 09/22/23 05:23 Completed TROPONIN Q4H Lab 09/22/23 09:15 Ordered TROPONIN Q4H Lab 09/22/23 13:15 Ordered Urine Triage Profile Stat Lab 09/22/23 05:41 Completed Medication Summary Discontinued Medications Generic Name Dose Route Start Last Admin Trade Name Freq PRN Reason Stop Dose Admin Aspirin 324 mg 09/22/23 05:04 09/22/23 05:32 Aspirin 81 Mg Tab.Chew PO 09/22/23 05:05 324 mg STAT ONE Administration Aspirin Confirm 09/22/23 05:30 Aspirin 81 Mg Tab.Chew Administered 09/22/23 05:31 Dose 324 mg .ROUTE .STK-MED ONE Nitroglycerin 1 gm 09/22/23 05:04 09/22/23 05:32 Nitroglycerin 1 Gm Packet TOP 09/22/23 05:05 1 gm STAT ONE Administration Nitroglycerin Confirm 09/22/23 05:30 Nitroglycerin 1 Gm Packet Administered 09/22/23 05:31 Dose 1 gm .ROUTE .STK-MED ONE Lab/Rad Data: Laboratory Result Diagrams 09/22/23 05:23 09/22/23 05:23 Laboratory Results 06/26/24 06/26/24 06/26/24 Range/Units 05:41 05:23 05:23 WBC (4.23-9.07) x10^3/uL RBC (4.63-6.08) x10^6/uL Hgb (13.7-17.5) g/dL Hct (40.1-51.0) % MCV (79.0-92.2) fL MCH (25.7-32.2) pg MCHC (32.3-36.5) g/dL RDW (11.6-14.4) % Plt Count (163-337) x10^3/uL MPV (9.4-12.4) fL Gran % (34.0-67.9) % Immature Gran % (Auto) (0.001-0.429) % Nucleat RBC Rel Count (0.00-0.2) % Eos # (Auto) (0.04-0.54) x10^3/uL Immature Gran # (Auto) (0.001-0.031) x10^3u/L Absolute Lymphs (auto) (1.32-3.57) x10^3/uL Absolute Monos (auto) (0.30-0.82) x10^3/uL Absolute Nucleated RBC (0.00-0.012) x10^3u/L Lymphocytes % (21.8-53.1) % Monocytes % (5.3-12.2) % Eosinophils % (0.8-7.0) % Basophils % (0.2-1.2) % Absolute Granulocytes (1.78-5.38) x10^3/uL Basophils # (0.01-0.08) x10^3/uL Sodium 138 (135-145) mmol/L Potassium 4.4 (3.5-5.1) mmol/L Chloride 103 (98-107) mmol/L Carbon Dioxide 28 (22-30) mmol/L Anion Gap 11.4 (5-15) MEQ/L BUN 14 (9-20) mg/dL Creatinine 1.22 (0.66-1.25) mg/dL Estimated GFR 65.0 ML/MIN Glucose 183 H (74-106) mg/dL Calcium 9.4 (8.4-10.2) mg/dL Magnesium 2.2 (1.6-2.3) mg/dL Total Bilirubin 0.60 (0.2-1.3) mg/dL AST 23 (17-59) U/L ALT 17 (0-50) U/L Alkaline Phosphatase 70 (38-126) U/L Troponin I 0.080 H* (0.000-0.033) ng/mL NT-Pro-B Natriuret Pep 231 (<300) pg/mL Serum Total Protein 7.3 (6.3-8.2) g/dL Albumin 4.1 (3.5-5.0) g/dL Urine Opiates Level NEGATIVE (NEGATIVE) Ur Methadone NEGATIVE (NEGATIVE) Urine Barbiturates NEGATIVE (NEGATIVE) Ur Phencyclidine (PCP) NEGATIVE (NEGATIVE) Urine Amphetamine NEGATIVE (NEGATIVE) U Benzodiazepine Level NEGATIVE (NEGATIVE) Urine Cocaine NEGATIVE (NEGATIVE) Urine Marijuana (THC) NEGATIVE (NEGATIVE) Ethyl Alcohol < 10 (0-10) mg/dL 09/22/23 Range/Units 05:23 WBC 8.0 (4.23-9.07) x10^3/uL RBC 5.38 (4.63-6.08) x10^6/uL Hgb 16.5 (13.7-17.5) g/dL Hct 49.8 (40.1-51.0) % MCV 92.6 H (79.0-92.2) fL MCH 30.7 (25.7-32.2) pg MCHC 33.1 (32.3-36.5) g/dL RDW 12.9 (11.6-14.4) % Plt Count 423 H (163-337) x10^3/uL MPV 9.7 (9.4-12.4) fL Gran % 66.0 (34.0-67.9) % Immature Gran % (Auto) 0.2 (0.001-0.429) % Nucleat RBC Rel Count 0.0 (0.00-0.2) % Eos # (Auto) 0.08 (0.04-0.54) x10^3/uL Immature Gran # (Auto) 0.02 (0.001-0.031) x10^3u/L Absolute Lymphs (auto) 2.03 (1.32-3.57) x10^3/uL Absolute Monos (auto) 0.51 (0.30-0.82) x10^3/uL Absolute Nucleated RBC 0.00 (0.00-0.012) x10^3u/L Lymphocytes % 25.3 (21.8-53.1) % Monocytes % 6.4 (5.3-12.2) % Eosinophils % 1.0 (0.8-7.0) % Basophils % 1.1 (0.2-1.2) % Absolute Granulocytes 5.29 (1.78-5.38) x10^3/uL Basophils # 0.09 H (0.01-0.08) x10^3/uL Sodium (135-145) mmol/L Potassium (3.5-5.1) mmol/L Chloride (98-107) mmol/L Carbon Dioxide (22-30) mmol/L Anion Gap (5-15) MEQ/L BUN (9-20) mg/dL Creatinine (0.66-1.25) mg/dL Estimated GFR ML/MIN Glucose (74-106) mg/dL Calcium (8.4-10.2) mg/dL Magnesium (1.6-2.3) mg/dL Total Bilirubin (0.2-1.3) mg/dL AST (17-59) U/L ALT (0-50) U/L Alkaline Phosphatase (38-126) U/L Troponin I (0.000-0.033) ng/mL NT-Pro-B Natriuret Pep (<300) pg/mL Serum Total Protein (6.3-8.2) g/dL Albumin (3.5-5.0) g/dL Urine Opiates Level (NEGATIVE) Ur Methadone (NEGATIVE) Urine Barbiturates (NEGATIVE) Ur Phencyclidine (PCP) (NEGATIVE) Urine Amphetamine (NEGATIVE) U Benzodiazepine Level (NEGATIVE) Urine Cocaine (NEGATIVE) Urine Marijuana (THC) (NEGATIVE) Ethyl Alcohol (0-10) mg/dL - Progress Progress: improved Air Movement: good Progress Note: 67-year-old male presents to our ED for evaluation of chest pain. Patient was in our ED for the same 3 days ago. Physical exam essentially nonremarkable. Troponin elevated at 0.08 however this is a significant improvement as compared to troponin 3 days ago. We will trend troponin with a second troponin. However it is currently the change of shift. Patient endorsed to incoming physician Dr. Hernandez for final disposition. If troponin is stable patient may be admitted to our facility for further evaluation and treatment. If there is a further change or an increase in second troponin patient be transfer out to higher level of care. Chest x-ray unchanged. No acute findings. Portions of this note were created with voice recognition technology. There may be grammatical, spelling, punctuation or sound alike errors Complexity problem addressed is moderate acute complicated. No critical care time. Complexity of data reviewed and analyzed is extensive. Test ordered test reviewed results analyzed and correlated clinically with history and physical exam. Risk of complication and or risk of morbidity/mortality patient management is high. Patient will require hospitalization or transfer for further evaluation and treatment. Vital stable. Time spent to disposition patient approximately 20 minutes. Plan of care established for shared decision making. No social determinants of health present impede follow-up. Portions of this note were created with voice recognition technology. There may be grammatical, spelling, punctuation or sound alike errors 09/22/23 06:49 Blood Culture(s) Obtained: No Antibiotics given: No Counseled pt/family regarding: lab results, diagnosis, rad results - Departure Departure Disposition: Observation Clinical Impression: Chest pain, Bigeminy, Elevated troponin, ACS (acute coronary syndrome) Condition: Stable Critical Care Time: No Referrals: STEWART KENDALL MD [Primary Care Provider] - Follow up/PCP as directed
[2023-09-22 05:27] LABS: Absolute Neutrophil Ct (ANC) 5.29 x10^3/uL (1.78-5.38); BASOPHIL % 1.1 % (0.2-1.2); Basophil (Absolute #) 0.09 x10^3/uL (0.01-0.08); Eosinophil (Absolute #) 0.08 x10^3/uL (0.04-0.54); Hematocrit 49.8 % (40.1-51.0); Hemoglobin 16.5 g/dL (13.7-17.5); IMMATURE GRAN # 0.02 x10^3u/L (0.001-0.031); IMMATURE GRAN % 0.2 % (0.001-0.429); Lymphocyte (Absolute #) 2.03 x10^3/uL (1.32-3.57); Lymphocytes % 25.3 % (21.8-53.1); Mean Cell Volume 92.6 fL (79.0-92.2); Mean Corpuscular Hemoglobin 30.7 pg (25.7-32.2); Mean Corpuscular Hgb Concent. 33.1 g/dL (32.3-36.5); Mean Platelet Volume 9.7 fL (9.4-12.4); Monocyte (Absolute #) 0.51 x10^3/uL (0.30-0.82); Monocytes % 6.4 % (5.3-12.2); Platelet Count 423 x10^3/uL (163-337); Red Blood Count 5.38 x10^6/uL (4.63-6.08); Red Cell Distribution Width 12.9 % (11.6-14.4)
[2023-09-22] MEDS ORDERED: BABY ASPIRIN 81 MG CHEW ONE (05:30)
[2023-09-22] MEDS ORDERED: NITRO-BID 2% UD PACKETS ONE (05:30)
[2023-09-22] MEDS: BABY ASPIRIN 81 MG CHEW PO ONE (05:32)
[2023-09-22] MEDS: NITRO-BID 2% UD PACKETS TOP ONE (05:32)
[2023-09-22 05:51] LABS: ALBUMIN 4.1 g/dL (3.5-5.0); ALKALINE PHOSPHATASE 70 U/L (38-126); ANION GAP 11.4 MEQ/L (5-15); BLOOD UREA NITROGEN 14 mg/dL (9-20); CHLORIDE 103 mmol/L (98-107); Calcium 9.4 mg/dL (8.4-10.2); Carbon Dioxide 28 mmol/L (22-30); Creatinine 1 1.22 mg/dL (0.66-1.25); ETHYL ALCOHOL < 10 mg/dL (0-10); Glucose 183 mg/dL (74-106); MAGNESIUM 2.2 mg/dL (1.6-2.3); Potassium 4.4 mmol/L (3.5-5.1); SGPT/ALT 17 U/L (0-50); SODIUM 138 mmol/L (135-145); Total Protein 7.3 g/dL (6.3-8.2)
[2023-09-22 05:52] LABS: SGOT/AST 23 U/L (17-59)
[2023-09-22 06:04] LABS: Amphetamine,Urine NEGATIVE (NEGATIVE); Barbiturate,Urine NEGATIVE (NEGATIVE); Benzodiazepine,Urine NEGATIVE (NEGATIVE); Cocaine,Urine NEGATIVE (NEGATIVE); Methadone,Urine NEGATIVE (NEGATIVE); Opiate,Urine NEGATIVE (NEGATIVE); PCP,Urine NEGATIVE (NEGATIVE); THC,Urine NEGATIVE (NEGATIVE)
[2023-09-22 06:29] LABS: TROPONIN 0.08 ng/mL (0.000-0.033)
--- NOTE | 2023-09-22 09:05 | XRAY ---
Indication: Chest pain. Comparison: September 19, 2023 Portable chest better inflated with stable right lung calcified granulomas. No focal infiltrate, consolidation, or large effusion. Heart not enlarged. Bony thorax intact again with mild degenerative changes and old left rib fractures. Impression: Nonacute chest with chronic features.
[2023-09-22] MEDS ORDERED: TYLENOL 325 MG PO PRN (16:15)
[2023-09-22] MEDS ORDERED: Zofran 4 MG/2 ML VIAL IV PRN (16:15)
--- NOTE | 2023-09-22 17:00 | PCM.HP ---
<ELIZABETH MCKEON - Last Filed: 09/22/23 17:24> History of Present Illness - Chief Complaint Chief Complaint: ACS Date: 09/22/23 History of Present Illness: is a 67 year old male poor historian, with a pmhx of COPD (2L oxygen prn), Stroke , and HTN who presented to ED both 09/19/23 and 09/22/23 for evaluation of chest pain. Patient states onset was about 2-3 days ago. He describes the pain as intermittent, left-sided with radiation to the left arm and neck with associated shortness of breath, dizziness, and nausea. Pain is sharp/pressure-like in characteristic lasting 4-5 hours per episode. He rates it a 7/10 on a numerical pain scale. He states Nitro improves the pain, movement aggravates it. He reports he follows with Dr. Jef QUAN and was recently started on medications but he is not sure what. External pharmacy shows metoprolol, lisinopril, atorvastatin, and lasix. Patient states he has not started taking any of these meds yet, nor does he take any home medications for at least one month. In ED, vitals are stable. EKG - RATE (90), Sinus Rhythm, NORMAL AXIS, NORMAL INTERVALS (Nonsustained ventricular tachycardia/bigeminy). CXR non-acute. Labs unremarkable with the exception of the troponin which is downtrending 0 .076<0.077<0.080. Patient given ASA and nitro in ED. Plan for cardiology consult and observation with repeat EKG/Trop series in the morning as well as an ECHO. - Review of Systems Constitutional: No Symptoms Eyes: No Symptoms Ears, Nose, & Throat: No Symptoms Respiratory: Short Of Breath Cardiac: Chest Pain Abdominal/Gastrointestinal: Nausea Genitourinary Symptoms: No Symptoms Musculoskeletal: No Symptoms Skin: No Symptoms Neurological: No Symptoms, Dizziness Psychological: No Symptoms Endocrine: No Symptoms Hematologic/Lymphatic: No Symptoms Medications & Allergies Home Medications: Home Medication List Acetaminophen 325 mg [Tylenol 325 mg] 650 mg PO Q4H PRN PRN tablet 09/22/23 [Rx] Albuterol Common Canister [Ventolin Common Canister] 4 puff IH Q4H PRN PRN 09/22/23 [Rx] Atorvastatin Calcium 20 mg PO DAILY 09/22/23 [History Confirmed 09/22/23] Furosemide 20 mg [Lasix 20 mg] 20 mg PO DAILY 09/22/23 [History Confirmed 09/22/23] Lisinopril 10 mg [Zestril 10 MG] 10 mg PO DAILY 09/22/23 [History Confirmed 09/22/23] Metoprolol Succinate 50 mg [Toprol Xl 50 MG] 50 mg PO DAILY 09/22/23 [History Confirmed 09/22/23] Nitroglycerin 0.4 mg Tablet [Nitrostat 0.4 MG Tablet] 0.4 mg SL Q5MIN PRN MR X 3 PRN 09/22/23 [Rx] Ondansetron HCl 4 mg/2 ml [Zofran 4 MG/2 ML VIAL] 4 mg IV Q6H PRN PRN 09/22/23 [Rx] Allergies/Adverse Reactions: Allergies Allergy/AdvReac Type Severity Reaction Status Date / Time Penicillins Allergy Verified 09/22/23 05:39 - Past Medical History Past Medical History: Yes Neurological History: Stroke ENT History: No Pertinent History Cardiac History: Arrhythmia, High Cholesterol, Hypertension Respiratory History: Asthma, COPD, Pneumonia Endocrine Medical History: No Pertinent History Musculoskelatal History: Arthritis, Fractures GI Medical History: No Pertinent History History: No Pertinent History Pyscho-Social History: No Pertinent History Male Reproductive Disorders: No Pertinent History Comment: pt is a poor historian, and unsure. Completed to best of ability. - Past Surgical History Past Surgical History: Yes Neuro Surgical History: No Pertinent History Cardiac History: No Pertinent History Respiratory Surgery: No Pertinent History GI Surgical History: No Pertinent History Genitourinary Surgical Hx: No Pertinent History Musculskeletal Surgical Hx: No Pertinent History Male Surgical History: No Pertinent History Other Surgical History: SPLEEN REMOVED-several years ago Significant Family History: no pertinent family hx - Social History Smoking Status: Former smoker How long have you smoked: YRS Exposure to second hand smoke: Yes Alcohol: None Drug Use: none - Social Determinants of Health Will the patient participate in the screening: Yes Do you worry about a steady place to live?: Yes Do you have any problems with any of the following?: Other In the past 12 months,have you had to go without utilities?: Yes Have you or anyone in your house had to go without enough: Yes Transportation Issues: Yes Has anyone in your support network made you feel unsafe?: No Does the patient want assistance with any of the above?: No Comment: pt states sometimes he stays with his sister - Physical Exam Vital Signs: Vital Signs - 24 hr Temp Pulse Pulse Resp BP BP Pulse Ox 09/22/23 16:15 98.0 F 88 21 133/63 96 09/22/23 13:01 181/66 09/22/23 12:31 82 21 127/98 09/22/23 12:01 70 18 129/63 96 09/22/23 11:30 74 21 120/69 95 09/22/23 11:02 69 16 94/41 96 09/22/23 10:51 73 21 155/88 97 09/22/23 10:50 96 09/22/23 08:31 80 19 164/88 09/22/23 08:01 83 18 133/98 99 09/22/23 07:32 91 H 140/64 99 09/22/23 07:01 71 23 110/77 95 09/22/23 07:00 75 30 H 93 L 09/22/23 06:52 96 09/22/23 06:40 77 30 H 92 L 09/22/23 06:30 82 28 H 102/54 92 L 09/22/23 06:00 88 28 H 118/67 93 L 09/22/23 05:06 46 L 09/22/23 05:04 96 09/22/23 04:58 97.3 F 48 L 20 96 General Appearance: no apparent distress Neurologic Exam: alert, oriented x 3, cooperative Eye Exam: PERRL/EOMI Ears, Nose, Throat Exam: dry mucous membranes Respiratory Exam: normal breath sounds, lungs clear Cardiovascular Exam: regular rate/rhythm, normal heart sounds Rectal Exam: deferred Back Exam: normal inspection Extremity Exam: swelling (BLE +1) Skin Exam: normal color Results - Labs Lab/Micro Results: Lab Results-Last 24 Hours 09/22/23 09/22/23 09/22/23 Range/Units 05:23 05:23 05:23 WBC 8.0 (4.23-9.07) x10^3/uL RBC 5.38 (4.63-6.08) x10^6/uL Hgb 16.5 (13.7-17.5) g/dL Hct 49.8 (40.1-51.0) % MCV 92.6 H (79.0-92.2) fL MCH 30.7 (25.7-32.2) pg MCHC 33.1 (32.3-36.5) g/dL RDW 12.9 (11.6-14.4) % Plt Count 423 H (163-337) x10^3/uL MPV 9.7 (9.4-12.4) fL Gran % 66.0 (34.0-67.9) % Immature Gran % (Auto) 0.2 (0.001-0.429) % Nucleat RBC Rel Count 0.0 (0.00-0.2) % Eos # (Auto) 0.08 (0.04-0.54) x10^3/uL Immature Gran # (Auto) 0.02 (0.001-0.031) x10^3u/L Absolute Lymphs (auto) 2.03 (1.32-3.57) x10^3/uL Absolute Monos (auto) 0.51 (0.30-0.82) x10^3/uL Absolute Nucleated RBC 0.00 (0.00-0.012) x10^3u/L Lymphocytes % 25.3 (21.8-53.1) % Monocytes % 6.4 (5.3-12.2) % Eosinophils % 1.0 (0.8-7.0) % Basophils % 1.1 (0.2-1.2) % Absolute Granulocytes 5.29 (1.78-5.38) x10^3/uL Basophils # 0.09 H (0.01-0.08) x10^3/uL Sodium 138 (135-145) mmol/L Potassium 4.4 (3.5-5.1) mmol/L Chloride 103 (98-107) mmol/L Carbon Dioxide 28 (22-30) mmol/L Anion Gap 11.4 (5-15) MEQ/L BUN 14 (9-20) mg/dL Creatinine 1.22 (0.66-1.25) mg/dL Estimated GFR 65.0 ML/MIN Glucose 183 H (74-106) mg/dL Calcium 9.4 (8.4-10.2) mg/dL Magnesium 2.2 (1.6-2.3) mg/dL Total Bilirubin 0.60 (0.2-1.3) mg/dL AST 23 (17-59) U/L ALT 17 (0-50) U/L Alkaline Phosphatase 70 (38-126) U/L Troponin I 0.080 H* (0.000-0.033) ng/mL NT-Pro-B Natriuret Pep 231 (<300) pg/mL Serum Total Protein 7.3 (6.3-8.2) g/dL Albumin 4.1 (3.5-5.0) g/dL Urine Opiates Level (NEGATIVE) Ur Methadone (NEGATIVE) Urine Barbiturates (NEGATIVE) Ur Phencyclidine (PCP) (NEGATIVE) Urine Amphetamine (NEGATIVE) U Benzodiazepine Level (NEGATIVE) Urine Cocaine (NEGATIVE) Urine Marijuana (THC) (NEGATIVE) Ethyl Alcohol < 10 (0-10) mg/dL 09/22/23 09/22/23 09/22/23 Range/Units 05:41 08:25 12:55 WBC (4.23-9.07) x10^3/uL RBC (4.63-6.08) x10^6/uL Hgb (13.7-17.5) g/dL Hct (40.1-51.0) % MCV (79.0-92.2) fL MCH (25.7-32.2) pg MCHC (32.3-36.5) g/dL RDW (11.6-14.4) % Plt Count (163-337) x10^3/uL MPV (9.4-12.4) fL Gran % (34.0-67.9) % Immature Gran % (Auto) (0.001-0.429) % Nucleat RBC Rel Count (0.00-0.2) % Eos # (Auto) (0.04-0.54) x10^3/uL Immature Gran # (Auto) (0.001-0.031) x10^3u/L Absolute Lymphs (auto) (1.32-3.57) x10^3/uL Absolute Monos (auto) (0.30-0.82) x10^3/uL Absolute Nucleated RBC (0.00-0.012) x10^3u/L Lymphocytes % (21.8-53.1) % Monocytes % (5.3-12.2) % Eosinophils % (0.8-7.0) % Basophils % (0.2-1.2) % Absolute Granulocytes (1.78-5.38) x10^3/uL Basophils # (0.01-0.08) x10^3/uL Sodium (135-145) mmol/L Potassium (3.5-5.1) mmol/L Chloride (98-107) mmol/L Carbon Dioxide (22-30) mmol/L Anion Gap (5-15) MEQ/L BUN (9-20) mg/dL Creatinine (0.66-1.25) mg/dL Estimated GFR ML/MIN Glucose (74-106) mg/dL Calcium (8.4-10.2) mg/dL Magnesium (1.6-2.3) mg/dL Total Bilirubin (0.2-1.3) mg/dL AST (17-59) U/L ALT (0-50) U/L Alkaline Phosphatase (38-126) U/L Troponin I 0.077 H* 0.076 H* (0.000-0.033) ng/mL NT-Pro-B Natriuret Pep (<300) pg/mL Serum Total Protein (6.3-8.2) g/dL Albumin (3.5-5.0) g/dL Urine Opiates Level NEGATIVE (NEGATIVE) Ur Methadone NEGATIVE (NEGATIVE) Urine Barbiturates NEGATIVE (NEGATIVE) Ur Phencyclidine (PCP) NEGATIVE (NEGATIVE) Urine Amphetamine NEGATIVE (NEGATIVE) U Benzodiazepine Level NEGATIVE (NEGATIVE) Urine Cocaine NEGATIVE (NEGATIVE) Urine Marijuana (THC) NEGATIVE (NEGATIVE) Ethyl Alcohol (0-10) mg/dL - Radiology Impressions Radiology Exams & Impressions: Radiology Procedures Category Date Time Status CHEST 1 VIEW (PORTABLE) Stat Exams 09/22/23 05:07 Completed - Other Procedures and Tests Respiratory Therapy 09/22/23 16:15 EKG REPEAT IN AM Assessment/Plan (1) Chest pain Current Visit: Yes Status: Acute Assessment & Plan: -EKG -RATE (90), Sinus Rhythm, NORMAL AXIS, NORMAL INTERVALS (Nonsustained ventricular tachycardia/bigeminy) -Cardiology consult -Nitro/Morphine -Optimize electrolytes K>4, MG>2 -Given ASA in ED -BNP WNL -Trops downtrending 0.076<0.077<0.080 -Echo -repeat trops/ekg in the a.m. Code(s): R07.9 - CHEST PAIN, UNSPECIFIED (2) COPD (chronic obstructive pulmonary disease) Current Visit: Yes Status: Acute Assessment & Plan: -Does not appear to be in exacerbation -CXR with no acute findings -Baseline is 2L prn- patient states he rarely uses it -will have RT evaluate -supplemental oxygen as needed to maintain spo2 > 92% (3) Elevated troponin Current Visit: Yes Status: Acute Assessment & Plan: -see CP Code(s): R79.89 - OTHER SPECIFIED ABNORMAL FINDINGS OF BLOOD CHEMISTRY (4) Non-compliance Current Visit: No Status: Acute Assessment & Plan: -Patient states he does not take his home medications due to cost, patient is homeless and resides in his car, will have CM evaluate for available resources Code(s): Z91.199 - PT NONCOMPL WITH OTHER MED TRTMT AND REGIMEN D/T UNSP REASON (5) Hypertension Current Visit: No Status: Chronic Qualifiers: Hypertension type: unspecified Qualified Code(s): I10 - Essential (primary) hypertension Assessment & Plan: -stable, continue home meds Code(s): I10 - ESSENTIAL (PRIMARY) HYPERTENSION Telemedicine Encounter - Telemedicine Encounter Telemedicine Encounter: The entirety of this encounter was performed via Telemedicine" <NAZARIO OCONNELL - Last Filed: 09/22/23 23:01> History of Present Illness - Chief Complaint History of Present Illness: is a 67 year old male. - Physical Exam Vital Signs: Vital Signs - 24 hr Temp Pulse Pulse Resp BP BP BP 09/22/23 20:31 75 24 125/57 09/22/23 20:01 83 28 H 132/55 09/22/23 20:00 75 09/22/23 19:31 83 19 128/50 09/22/23 19:10 75 18 126/61 09/22/23 19:00 74 19 09/22/23 18:30 74 22 09/22/23 18:21 09/22/23 18:20 67 22 09/22/23 18:10 72 22 09/22/23 18:00 66 24 09/22/23 17:50 75 17 90/60 09/22/23 17:42 09/22/23 17:40 73 19 09/22/23 17:36 77 111/62 09/22/23 17:31 75 118/67 09/22/23 17:30 75 20 09/22/23 17:25 79 146/65 09/22/23 17:20 72 21 09/22/23 16:32 98.0 F 88 21 133/63 09/22/23 16:15 98.0 F 88 21 133/63 09/22/23 13:01 181/66 09/22/23 12:31 82 21 127/98 09/22/23 12:01 70 18 129/63 09/22/23 11:30 74 21 120/69 09/22/23 11:02 69 16 94/41 09/22/23 10:51 73 21 155/88 09/22/23 10:50 09/22/23 08:31 80 19 164/88 09/22/23 08:01 83 18 133/98 09/22/23 07:32 91 H 140/64 09/22/23 07:01 71 23 110/77 09/22/23 07:00 75 30 H 09/22/23 06:52 09/22/23 06:40 77 30 H 09/22/23 06:30 82 28 H 102/54 09/22/23 06:00 88 28 H 118/67 09/22/23 05:06 46 L 09/22/23 05:04 09/22/23 04:58 97.3 F 48 L 20 Pulse Ox 09/22/23 20:31 94 L 09/22/23 20:01 95 09/22/23 20:00 09/22/23 19:31 95 09/22/23 19:10 96 09/22/23 19:00 94 L 09/22/23 18:30 09/22/23 18:21 99 09/22/23 18:20 09/22/23 18:10 09/22/23 18:00 09/22/23 17:50 09/22/23 17:42 99 09/22/23 17:40 09/22/23 17:36 09/22/23 17:31 09/22/23 17:30 09/22/23 17:25 09/22/23 17:20 09/22/23 16:32 96 09/22/23 16:15 96 09/22/23 13:01 09/22/23 12:31 09/22/23 12:01 96 09/22/23 11:30 95 09/22/23 11:02 96 09/22/23 10:51 97 09/22/23 10:50 96 09/22/23 08:31 09/22/23 08:01 99 09/22/23 07:32 99 09/22/23 07:01 95 09/22/23 07:00 93 L 09/22/23 06:52 96 09/22/23 06:40 92 L 09/22/23 06:30 92 L 09/22/23 06:00 93 L 09/22/23 05:06 09/22/23 05:04 96 09/22/23 04:58 96 Results - Labs Lab/Micro Results: Lab Results-Last 24 Hours 09/22/23 09/22/23 09/22/23 Range/Units 05:23 05:23 05:23 WBC 8.0 (4.23-9.07) x10^3/uL RBC 5.38 (4.63-6.08) x10^6/uL Hgb 16.5 (13.7-17.5) g/dL Hct 49.8 (40.1-51.0) % MCV 92.6 H (79.0-92.2) fL MCH 30.7 (25.7-32.2) pg MCHC 33.1 (32.3-36.5) g/dL RDW 12.9 (11.6-14.4) % Plt Count 423 H (163-337) x10^3/uL MPV 9.7 (9.4-12.4) fL Gran % 66.0 (34.0-67.9) % Immature Gran % (Auto) 0.2 (0.001-0.429) % Nucleat RBC Rel Count 0.0 (0.00-0.2) % Eos # (Auto) 0.08 (0.04-0.54) x10^3/uL Immature Gran # (Auto) 0.02 (0.001-0.031) x10^3u/L Absolute Lymphs (auto) 2.03 (1.32-3.57) x10^3/uL Absolute Monos (auto) 0.51 (0.30-0.82) x10^3/uL Absolute Nucleated RBC 0.00 (0.00-0.012) x10^3u/L Lymphocytes % 25.3 (21.8-53.1) % Monocytes % 6.4 (5.3-12.2) % Eosinophils % 1.0 (0.8-7.0) % Basophils % 1.1 (0.2-1.2) % Absolute Granulocytes 5.29 (1.78-5.38) x10^3/uL Basophils # 0.09 H (0.01-0.08) x10^3/uL PT (9.4-12.5) SECONDS INR (0.8-3.0) APTT (25.1-36.5) SECONDS Sodium 138 (135-145) mmol/L Potassium 4.4 (3.5-5.1) mmol/L Chloride 103 (98-107) mmol/L Carbon Dioxide 28 (22-30) mmol/L Anion Gap 11.4 (5-15) MEQ/L BUN 14 (9-20) mg/dL Creatinine 1.22 (0.66-1.25) mg/dL Estimated GFR 65.0 ML/MIN Glucose 183 H (74-106) mg/dL Calcium 9.4 (8.4-10.2) mg/dL Magnesium 2.2 (1.6-2.3) mg/dL Total Bilirubin 0.60 (0.2-1.3) mg/dL AST 23 (17-59) U/L ALT 17 (0-50) U/L Alkaline Phosphatase 70 (38-126) U/L Troponin I 0.080 H* (0.000-0.033) ng/mL NT-Pro-B Natriuret Pep 231 (<300) pg/mL Serum Total Protein 7.3 (6.3-8.2) g/dL Albumin 4.1 (3.5-5.0) g/dL Urine Opiates Level (NEGATIVE) Ur Methadone (NEGATIVE) Urine Barbiturates (NEGATIVE) Ur Phencyclidine (PCP) (NEGATIVE) Urine Amphetamine (NEGATIVE) U Benzodiazepine Level (NEGATIVE) Urine Cocaine (NEGATIVE) Urine Marijuana (THC) (NEGATIVE) Ethyl Alcohol < 10 (0-10) mg/dL 09/22/23 09/22/23 09/22/23 Range/Units 05:41 08:25 12:55 WBC (4.23-9.07) x10^3/uL RBC (4.63-6.08) x10^6/uL Hgb (13.7-17.5) g/dL Hct (40.1-51.0) % MCV (79.0-92.2) fL MCH (25.7-32.2) pg MCHC (32.3-36.5) g/dL RDW (11.6-14.4) % Plt Count (163-337) x10^3/uL MPV (9.4-12.4) fL Gran % (34.0-67.9) % Immature Gran % (Auto) (0.001-0.429) % Nucleat RBC Rel Count (0.00-0.2) % Eos # (Auto) (0.04-0.54) x10^3/uL Immature Gran # (Auto) (0.001-0.031) x10^3u/L Absolute Lymphs (auto) (1.32-3.57) x10^3/uL Absolute Monos (auto) (0.30-0.82) x10^3/uL Absolute Nucleated RBC (0.00-0.012) x10^3u/L Lymphocytes % (21.8-53.1) % Monocytes % (5.3-12.2) % Eosinophils % (0.8-7.0) % Basophils % (0.2-1.2) % Absolute Granulocytes (1.78-5.38) x10^3/uL Basophils # (0.01-0.08) x10^3/uL PT (9.4-12.5) SECONDS INR (0.8-3.0) APTT (25.1-36.5) SECONDS Sodium (135-145) mmol/L Potassium (3.5-5.1) mmol/L Chloride (98-107) mmol/L Carbon Dioxide (22-30) mmol/L Anion Gap (5-15) MEQ/L BUN (9-20) mg/dL Creatinine (0.66-1.25) mg/dL Estimated GFR ML/MIN Glucose (74-106) mg/dL Calcium (8.4-10.2) mg/dL Magnesium (1.6-2.3) mg/dL Total Bilirubin (0.2-1.3) mg/dL AST (17-59) U/L ALT (0-50) U/L Alkaline Phosphatase (38-126) U/L Troponin I 0.077 H* 0.076 H* (0.000-0.033) ng/mL NT-Pro-B Natriuret Pep (<300) pg/mL Serum Total Protein (6.3-8.2) g/dL Albumin (3.5-5.0) g/dL Urine Opiates Level NEGATIVE (NEGATIVE) Ur Methadone NEGATIVE (NEGATIVE) Urine Barbiturates NEGATIVE (NEGATIVE) Ur Phencyclidine (PCP) NEGATIVE (NEGATIVE) Urine Amphetamine NEGATIVE (NEGATIVE) U Benzodiazepine Level NEGATIVE (NEGATIVE) Urine Cocaine NEGATIVE (NEGATIVE) Urine Marijuana (THC) NEGATIVE (NEGATIVE) Ethyl Alcohol (0-10) mg/dL 09/22/23 09/22/23 Range/Units 18:40 18:40 WBC 11.9 H (4.23-9.07) x10^3/uL RBC 5.23 (4.63-6.08) x10^6/uL Hgb 16.0 (13.7-17.5) g/dL Hct 50.9 (40.1-51.0) % MCV 97.3 H (79.0-92.2) fL MCH 30.6 (25.7-32.2) pg MCHC 31.4 L (32.3-36.5) g/dL RDW 13.0 (11.6-14.4) % Plt Count 381 H (163-337) x10^3/uL MPV 9.6 (9.4-12.4) fL Gran % (34.0-67.9) % Immature Gran % (Auto) (0.001-0.429) % Nucleat RBC Rel Count (0.00-0.2) % Eos # (Auto) (0.04-0.54) x10^3/uL Immature Gran # (Auto) (0.001-0.031) x10^3u/L Absolute Lymphs (auto) (1.32-3.57) x10^3/uL Absolute Monos (auto) (0.30-0.82) x10^3/uL Absolute Nucleated RBC (0.00-0.012) x10^3u/L Lymphocytes % (21.8-53.1) % Monocytes % (5.3-12.2) % Eosinophils % (0.8-7.0) % Basophils % (0.2-1.2) % Absolute Granulocytes (1.78-5.38) x10^3/uL Basophils # (0.01-0.08) x10^3/uL PT 10.9 (9.4-12.5) SECONDS INR 1.00 (0.8-3.0) APTT 25.9 (25.1-36.5) SECONDS Sodium (135-145) mmol/L Potassium (3.5-5.1) mmol/L Chloride (98-107) mmol/L Carbon Dioxide (22-30) mmol/L Anion Gap (5-15) MEQ/L BUN (9-20) mg/dL Creatinine (0.66-1.25) mg/dL Estimated GFR ML/MIN Glucose (74-106) mg/dL Calcium (8.4-10.2) mg/dL Magnesium (1.6-2.3) mg/dL Total Bilirubin (0.2-1.3) mg/dL AST (17-59) U/L ALT (0-50) U/L Alkaline Phosphatase (38-126) U/L Troponin I (0.000-0.033) ng/mL NT-Pro-B Natriuret Pep (<300) pg/mL Serum Total Protein (6.3-8.2) g/dL Albumin (3.5-5.0) g/dL Urine Opiates Level (NEGATIVE) Ur Methadone (NEGATIVE) Urine Barbiturates (NEGATIVE) Ur Phencyclidine (PCP) (NEGATIVE) Urine Amphetamine (NEGATIVE) U Benzodiazepine Level (NEGATIVE) Urine Cocaine (NEGATIVE) Urine Marijuana (THC) (NEGATIVE) Ethyl Alcohol (0-10) mg/dL - Radiology Impressions Radiology Exams & Impressions: Radiology Procedures Category Date Time Status CHEST 1 VIEW (PORTABLE) Stat Exams 09/22/23 05:07 Completed ECHO W/2D AND DOPPLER [US] Stat Exams 09/23/23 07:00 Ordered ECHO W/2D AND DOPPLER [US] Stat Exams 09/23/23 07:00 Stop Req - Other Procedures and Tests Respiratory Therapy 09/22/23 16:15 EKG REPEAT IN AM 09/22/23 17:43 Respiratory Therapy Assessment DAILY Telemedicine Encounter - Telemedicine Encounter Telemedicine Encounter: The entirety of this encounter was performed via Telemedicine" FLOR Encounter - FLOR Encounter Attestation FLOR Encounter Attestation: "RADAMES Garza andsharoniscussed pertinent aspects of their care with Elizabeth Mckeon and agree with the history, physical exam (any modifications based on my personal exam will be noted below), assessment, and plan as outlined in original note. Please see immediately below for my summary of findings and additional assessment and plan along with any meaningful corrections/explanations to the Subjective/Objective portions of the FLOR note will be noted." My portion of the encounter took place via telemedicine. -Patient with chest pain, NSTEMI with risk factors of HTN, HLD, prior smoking history. Transfer planned to [facility] for cardiology evaluation with possible cardiac cath. Sign out given to digital composer and hospitalist.
[2023-09-22] MEDS: Nitrostat 0.4 MG Tablet SL PRN (17:25)
[2023-09-22] MEDS: Sodium Chloride 0.9% 1000 ML 1,000 ML IV SCH (17:29)
[2023-09-22] MEDS ORDERED: VENTOLIN COMMON CANISTER IH PRN (17:37)
--- NOTE | 2023-09-22 18:21 | PCM.CONS ---
History of Present Illness - Date of Consult Consulting Stockroom Attendant: DAVID REEVES MD Requesting Provider: Attending Provider: NAZARIO OCONNELL MD Primary Care Provider: PCP: STEWART KENDALL MD - Consult Narrative Reason for Consult: chest pain, recent NSTEMI HPI: Patient is a 67M PMH HTN, HLD who presents to the hospital with 2-3 days of chest pain. Pt came to the ER 2-3 days ago with chest pain, found to have elevated troponin of 0.8, transferred to another hospital but left AMA, then now again presents with chest pain, flat trops here but has been having ongoing chest pain. CP worse with exertion and also worse with breathing. still having refractory CP despite sl ntg and nitro patch. Initially when ED attending spoke to him about transfer to tertiary care center he said he did not want a [facility] so he was admitted to [facility], now with ongoing symptoms he is agreeable for transfer. denies fevers, chills, nausea, vomiting, diarrhea, syncope, presyncope, dysphagia,odynophagia, orthopnea, paroxysmal nocturnal dyspnea, shortness of breath, chest pain, refluxsymptoms, belly pain, dysuria, hematuria, melena, hematochezia, seizures, paralysis, or other neurological changes. All other systems have been reviewed and are negative. cc:: The requesting physician will be sent a copy of the consult. Review of Systems - Review of Systems All systems: all other systems reviewed and were unremarkable - Past Medical History Past Medical History: Yes Neurological History: Stroke ENT History: No Pertinent History Cardiac History: Arrhythmia, High Cholesterol, Hypertension Respiratory History: Asthma, COPD, Pneumonia Endocrine Medical History: No Pertinent History Musculoskelatal History: Arthritis, Fractures GI Medical History: No Pertinent History History: No Pertinent History Pyscho-Social History: No Pertinent History Male Reproductive Disorders: No Pertinent History Comment: pt is a poor historian, and unsure. Completed to best of ability. - Past Surgical History Past Surgical History: Yes Neuro Surgical History: No Pertinent History Cardiac History: No Pertinent History Respiratory Surgery: No Pertinent History GI Surgical History: No Pertinent History Genitourinary Surgical Hx: No Pertinent History Musculskeletal Surgical Hx: No Pertinent History Male Surgical History: No Pertinent History Other Surgical History: SPLEEN REMOVED-several years ago Significant Family History: no pertinent family hx - Social History Smoking Status: Former smoker How long have you smoked: YRS Exposure to second hand smoke: Yes Alcohol: None Drug Use: none - Social Determinants of Health Will the patient participate in the screening: Yes Do you worry about a steady place to live?: Yes Do you have any problems with any of the following?: Other In the past 12 months,have you had to go without utilities?: Yes Have you or anyone in your house had to go without enough: Yes Transportation Issues: Yes Has anyone in your support network made you feel unsafe?: No Does the patient want assistance with any of the above?: No Comment: pt states sometimes he stays with his sister Medications & Allergies Home Medications: Home Medication List Atorvastatin Calcium 20 mg PO DAILY 09/22/23 [History Confirmed 09/22/23] Furosemide 20 mg [Lasix 20 mg] 20 mg PO DAILY 09/22/23 [History Confirmed 09/22/23] Lisinopril 10 mg [Zestril 10 MG] 10 mg PO DAILY 09/22/23 [History Confirmed 09/22/23] Metoprolol Succinate 50 mg [Toprol Xl 50 MG] 50 mg PO DAILY 09/22/23 [Hi story Confirmed 09/22/23] Allergies/Adverse Reactions: Allergies Allergy/AdvReac Type Severity Reaction Status Date / Time Penicillins Allergy Verified 09/22/23 05:39 Exam - Vitals Vital Signs: Vital Signs - 24 hr Temp Pulse Pulse Resp BP BP BP 09/22/23 17:50 79 90/60 09/22/23 17:42 09/22/23 17:36 77 111/62 09/22/23 17:31 75 118/67 09/22/23 17:25 79 146/65 09/22/23 16:32 98.0 F 88 21 133/63 09/22/23 16:15 98.0 F 88 21 133/63 09/22/23 13:01 181/66 09/22/23 12:31 82 21 127/98 09/22/23 12:01 70 18 129/63 09/22/23 11:30 74 21 120/69 09/22/23 11:02 69 16 94/41 09/22/23 10:51 73 21 155/88 09/22/23 10:50 09/22/23 08:31 80 19 164/88 09/22/23 08:01 83 18 133/98 09/22/23 07:32 91 H 140/64 09/22/23 07:01 71 23 110/77 09/22/23 07:00 75 30 H 09/22/23 06:52 09/22/23 06:40 77 30 H 09/22/23 06:30 82 28 H 102/54 09/22/23 06:00 88 28 H 118/67 09/22/23 05:06 46 L 09/22/23 05:04 09/22/23 04:58 97.3 F 48 L 20 Pulse Ox 09/22/23 17:50 09/22/23 17:42 99 09/22/23 17:36 09/22/23 17:31 09/22/23 17:25 09/22/23 16:32 96 09/22/23 16:15 96 09/22/23 13:01 09/22/23 12:31 09/22/23 12:01 96 09/22/23 11:30 95 09/22/23 11:02 96 09/22/23 10:51 97 09/22/23 10:50 96 09/22/23 08:31 09/22/23 08:01 99 09/22/23 07:32 99 09/22/23 07:01 95 09/22/23 07:00 93 L 09/22/23 06:52 96 09/22/23 06:40 92 L 09/22/23 06:30 92 L 09/22/23 06:00 93 L 09/22/23 05:06 09/22/23 05:04 96 09/22/23 04:58 96 General:: alert and oriented x 4, no acute distress, moderate distress HEENT: PERRLA, EOMI Cardiovascular Exam: regular rate/rhythm, normal heart sounds Respiratory Exam: normal breath sounds, lungs clear SpO2: 99 Gastrointestinal/Abdomen Exam: soft, normal bowel sounds Skin Exam: normal color, dry Extremity Exam: normal inspection, normal range of motion Neurologic: transition specialist II-XII grossly intact Results Vital Signs: Vital Signs - 24 hr Temp Pulse Pulse Resp BP BP BP 09/22/23 17:50 79 90/60 09/22/23 17:42 09/22/23 17:36 77 111/62 09/22/23 17:31 75 118/67 09/22/23 17:25 79 146/65 09/22/23 16:32 98.0 F 88 21 133/63 09/22/23 16:15 98.0 F 88 21 133/63 09/22/23 13:01 181/66 09/22/23 12:31 82 21 127/98 09/22/23 12:01 70 18 129/63 09/22/23 11:30 74 21 120/69 09/22/23 11:02 69 16 94/41 09/22/23 10:51 73 21 155/88 09/22/23 10:50 09/22/23 08:31 80 19 164/88 09/22/23 08:01 83 18 133/98 09/22/23 07:32 91 H 140/64 09/22/23 07:01 71 23 110/77 09/22/23 07:00 75 30 H 09/22/23 06:52 09/22/23 06:40 77 30 H 09/22/23 06:30 82 28 H 102/54 09/22/23 06:00 88 28 H 118/67 09/22/23 05:06 46 L 09/22/23 05:04 09/22/23 04:58 97.3 F 48 L 20 Pulse Ox 09/22/23 17:50 09/22/23 17:42 99 09/22/23 17:36 09/22/23 17:31 09/22/23 17:25 09/22/23 16:32 96 09/22/23 16:15 96 09/22/23 13:01 09/22/23 12:31 09/22/23 12:01 96 09/22/23 11:30 95 09/22/23 11:02 96 09/22/23 10:51 97 09/22/23 10:50 96 09/22/23 08:31 09/22/23 08:01 99 09/22/23 07:32 99 09/22/23 07:01 95 09/22/23 07:00 93 L 09/22/23 06:52 96 09/22/23 06:40 92 L 09/22/23 06:30 92 L 09/22/23 06:00 93 L 09/22/23 05:06 09/22/23 05:04 96 09/22/23 04:58 96 Pain Assessment - Last Documented Pain Intensity 5 Pain Scale Used 0-10 Pain Scale Intake and Output: Intake & Output 09/20/23 09/21/23 09/22/23 09/23/23 11:59 11:59 11:59 11:59 Weight 93.894 kg 93.6 kg LAB: I have reviewed the Labs in [facility]. Radiology Exams: Radiology Procedures Category Date Time Status CHEST 1 VIEW (PORTABLE) Stat Exams 09/22/23 05:07 Completed ECHO W/2D AND DOPPLER [US] Stat Exams 09/23/23 07:00 Ordered Assessment & Plan (1) Chest pain Current Visit: Yes Status: Acute Code(s): R07.9 - CHEST PAIN, UNSPECIFIED - Encounter Encounter: "The entirety of this encounter was performed via Telemedicine using audio and visual "
[2023-09-22] MEDS: PHARMACY DOSING REQUEST MC ONE (18:25)
--- NOTE | 2023-09-22 18:31 | PCM.DS ---
Discharge Summary Date of Admission: 09/22/23 16:05 Date of Discharge: 09/22/23 Admitting Physician: NAZARIO OCONNELL MD Consults: Consults on Case 09/22/23 05:25 ACO SDOH Referral ONCE 09/22/23 16:36 Consult Cardiology ROUTINE 09/22/23 16:52 Case Management SDOH DC Needs Assessment ROUTINE Primary Care Provider: STEWART KENDALL MD <ELIZABETH MCKEON - Last Filed: 09/22/23 18:27> Date of Admission: 09/22/23 16:05 Admitting Physician: NAZARIO OCONNELL MD Consults: Consults on Case 09/22/23 05:25 ACO SDOH Referral ONCE 09/22/23 16:36 Consult Cardiology ROUTINE 09/22/23 16:52 Case Management SDOH DC Needs Assessment ROUTINE Primary Care Provider: STEWART KENDALL MD <NAZARIO OCONNELL - Last Filed: 09/22/23 22:55> Allergies <ELIZABETH MCKEON - Last Filed: 09/22/23 18:27> <NAZARIO OCONNELL - Last Filed: 09/22/23 22:55> Allergies Penicillins Allergy (Verified 09/22/23 05:39) Hospital Summary - Hospital Course Hospital Course: is a 67 year old male poor historian, with a pmhx of COPD (2L oxygen prn), Stroke , and HTN who presented to ED both 09/19/23 and 09/22/23 for evalua tion of chest pain. Patient states onset was about 2-3 days ago. He describes the pain as intermittent, left-sided with radiation to the left arm and neck with associated shortness of breath, dizziness, and nausea. Pain is sharp/pressure-like in characteristic lasting 4-5 hours per episode. He rates it a 7/10 on a numerical pain scale. He states Nitro improves the pain, movement aggravates it. He reports he follows with Dr. Jef QUAN and was recently started on medications but he is not sure what. External pharmacy shows metoprolol, lisinopril, atorvastatin, and lasix. Patient states he has not started taking any of these meds yet, nor does he take any home medications for at least one month. In ED, vitals are stable. EKG - RATE (90), Sinus Rhythm, NORMAL AXIS, NORMAL INTERVALS (Nonsustained ventricular tachycardia/bigeminy). CXR non-acute. Labs unremarkable with the exception of the troponin which is downtrending 0.076<0.077<0.080. Patient given ASA and nitro in ED. Patient seen by ca rdiology- initially was not agreeable for transfer for [facility] but is now - will transfer to higher level of care for possible LHC. Discharge Note Latest Assessment & Plan (1) Chest pain Current Visit: Yes Status: Acute Assessment & Plan: -EKG -RATE (90), Sinus Rhythm, NORMAL AXIS, NORMAL INTERVALS (Nonsustained ventricular tachycardia/bigeminy) -Cardiology consult -Nitro/Morphine -Optimize electrolytes K>4, MG>2 -Given ASA in ED -BNP WNL -Trops downtrending 0.076<0.077<0.080 -Echo -repeat trops/ekg in the a.m. Code(s): R07.9 - CHEST PAIN, UNSPECIFIED (2) COPD (chronic obstructive pulmonary disease) Current Visit: Yes Status: Acute Assessment & Plan: -Does not appear to be in exacerbation -CXR with no acute findings -Baseline is 2L prn- patient states he rarely uses it -will have RT evaluate -supplemental oxygen as needed to maintain spo2 > 92% (3) Elevated troponin Current Visit: Yes Status: Acute Assessment & Plan: -see CP Code(s): R79.89 - OTHER SPECIFIED ABNORMAL FINDINGS OF BLOOD CHEMISTRY (4) Non-compliance Current Visit: No Status: Acute Assessment & Plan: -Patient states he does not take his home medications due to cost, patient is homeless and resides in his car, will have CM evaluate for available resources Code(s): Z91.199 - PT NONCOMPL WITH OTHER MED TRTMT AND REGIMEN D/T UNSP REASON (5) Hypertension Current Visit: No Status: Chronic Qualifiers: Hypertension type: unspecified Qualified Code(s): I10 - Essential (primary) hypertension Assessment & Plan: -stable, continue home meds I spent 35 minutes [id number] with the patient on the day of discharge performing discharge exam, discussing hospital stay and discharge instructions with patient and caregivers, preparation of discharge records, prescriptions & referral forms and addressing any questions/concerns the patient had as documented above. - Vitals & Intake/Output Vital Signs: Vital Signs Temperature 98.0 F 09/22/23 16:32 Pulse Rate 79 09/22/23 17:50 Respiratory Rate 21 09/22/23 16:32 Blood Pressure 90/60 09/22/23 17:50 O2 Sat by Pulse Oximetry 99 09/22/23 18:21 Intake & Output: Intake & Output 09/20/23 09/21/23 09/22/23 09/23/23 11:59 11:59 11:59 11:59 Weight 93.894 kg 93.6 kg - Lab Result Diagrams: 09/22/23 05:23 09/22/23 05:23 Lab Results-Last 24 Hrs: Lab Results-Last 24 Hours 09/22/23 09/22/23 09/22/23 Range/Units 05:23 05:23 05:23 WBC 8.0 (4.23-9.07) x10^3/uL RBC 5.38 (4.63-6.08) x10^6/uL Hgb 16.5 (13.7-17.5) g/dL Hct 49.8 (40.1-51.0) % MCV 92.6 H (79.0-92.2) fL MCH 30.7 (25.7-32.2) pg MCHC 33.1 (32.3-36.5) g/dL RDW 12.9 (11.6-14.4) % Plt Count 423 H (163-337) x10^3/uL MPV 9.7 (9.4-12.4) fL Gran % 66.0 (34.0-67.9) % Immature Gran % (Auto) 0.2 (0.001-0.429) % Nucleat RBC Rel Count 0.0 (0.00-0.2) % Eos # (Auto) 0.08 (0.04-0.54) x10^3/uL Immature Gran # (Auto) 0.02 (0.001-0.031) x10^3u/L Absolute Lymphs (auto) 2.03 (1.32-3.57) x10^3/uL Absolute Monos (auto) 0.51 (0.30-0.82) x10^3/uL Absolute Nucleated RBC 0.00 (0.00-0.012) x10^3u/L Lymphocytes % 25.3 (21.8-53.1) % Monocytes % 6.4 (5.3-12.2) % Eosinophils % 1.0 (0.8-7.0) % Basophils % 1.1 (0.2-1.2) % Absolute Granulocytes 5.29 (1.78-5.38) x10^3/uL Basophils # 0.09 H (0.01-0.08) x10^3/uL Sodium 138 (135-145) mmol/L Potassium 4.4 (3.5-5.1) mmol/L Chloride 103 (98-107) mmol/L Carbon Dioxide 28 (22-30) mmol/L Anion Gap 11.4 (5-15) MEQ/L BUN 14 (9-20) mg/dL Creatinine 1.22 (0.66-1.25) mg/dL Estimated GFR 65.0 ML/MIN Glucose 183 H (74-106) mg/dL Calcium 9.4 (8.4-10.2) mg/dL Magnesium 2.2 (1.6-2.3) mg/dL Total Bilirubin 0.60 (0.2-1.3) mg/dL AST 23 (17-59) U/L ALT 17 (0-50) U/L Alkaline Phosphatase 70 (38-126) U/L Troponin I 0.080 H* (0.000-0.033) ng/mL NT-Pro-B Natriuret Pep 231 (<300) pg/mL Serum Total Protein 7.3 (6.3-8.2) g/dL Albumin 4.1 (3.5-5.0) g/dL Urine Opiates Level (NEGATIVE) Ur Methadone (NEGATIVE) Urine Barbiturates (NEGATIVE) Ur Phencyclidine (PCP) (NEGATIVE) Urine Amphetamine (NEGATIVE) U Benzodiazepine Level (NEGATIVE) Urine Cocaine (NEGATIVE) Urine Marijuana (THC) (NEGATIVE) Ethyl Alcohol < 10 (0-10) mg/dL 09/22/23 09/22/23 09/22/23 Range/Units 05:41 08:25 12:55 WBC (4.23-9.07) x10^3/uL RBC (4.63-6.08) x10^6/uL Hgb (13.7-17.5) g/dL Hct (40.1-51.0) % MCV (79.0-92.2) fL MCH (25.7-32.2) pg MCHC (32.3-36.5) g/dL RDW (11.6-14.4) % Plt Count (163-337) x10^3/uL MPV (9.4-12.4) fL Gran % (34.0-67.9) % Immature Gran % (Auto) (0.001-0.429) % Nucleat RBC Rel Count (0.00-0.2) % Eos # (Auto) (0.04-0.54) x10^3/uL Immature Gran # (Auto) (0.001-0.031) x10^3u/L Absolute Lymphs (auto) (1.32-3.57) x10^3/uL Absolute Monos (auto) (0.30-0.82) x10^3/uL Absolute Nucleated RBC (0.00-0.012) x10^3u/L Lymphocytes % (21.8-53.1) % Monocytes % (5.3-12.2) % Eosinophils % (0.8-7.0) % Basophils % (0.2-1.2) % Absolute Granulocytes (1.78-5.38) x10^3/uL Basophils # (0.01-0.08) x10^3/uL Sodium (135-145) mmol/L Potassium (3.5-5.1) mmol/L Chloride (98-107) mmol/L Carbon Dioxide (22-30) mmol/L Anion Gap (5-15) MEQ/L BUN (9-20) mg/dL Creatinine (0.66-1.25) mg/dL Estimated GFR ML/MIN Glucose (74-106) mg/dL Calcium (8.4-10.2) mg/dL Magnesium (1.6-2.3) mg/dL Total Bilirubin (0.2-1.3) mg/dL AST (17-59) U/L ALT (0-50) U/L Alkaline Phosphatase (38-126) U/L Troponin I 0.077 H* 0.076 H* (0.000-0.033) ng/mL NT-Pro-B Natriuret Pep (<300) pg/mL Serum Total Protein (6.3-8.2) g/dL Albumin (3.5-5.0) g/dL Urine Opiates Level NEGATIVE (NEGATIVE) Ur Methadone NEGATIVE (NEGATIVE) Urine Barbiturates NEGATIVE (NEGATIVE) Ur Phencyclidine (PCP) NEGATIVE (NEGATIVE) Urine Amphetamine NEGATIVE (NEGATIVE) U Benzodiazepine Level NEGATIVE (NEGATIVE) Urine Cocaine NEGATIVE (NEGATIVE) Urine Marijuana (THC) NEGATIVE (NEGATIVE) Ethyl Alcohol (0-10) mg/dL - Radiology Exams Ordered Rad Exams-Entire Visit: Radiology Procedures Category Date Time Status CHEST 1 VIEW (PORTABLE) Stat Exams 09/22/23 05:07 Completed ECHO W/2D AND DOPPLER [US] Stat Exams 09/23/23 07:00 Ordered - Procedures and Test Procedures and Tests throughout Hospitalization: Therapy Orders & Screens 09/22/23 16:15 EKG REPEAT IN AM Comment: 09/22/23 17:06 Respiratory Therapy Consult ONCE Comment: Reason For Exam: Diagnosis: ACS 09/22/23 17:43 Respiratory Therapy Assessment DAILY Comment: Diagnosis: ACS <ELIZABETH MCKEON - Last Filed: 09/22/23 18:27> - Vitals & Intake/Output Vital Signs: Vital Signs Temperature 98.0 F 09/22/23 16:32 Pulse Rate 75 09/22/23 20:31 Respiratory Rate 24 09/22/23 20:31 Blood Pressure 125/57 09/22/23 20:31 O2 Sat by Pulse Oximetry 94 L 09/22/23 20:31 Intake & Output: Intake & Output 09/20/23 09/21/23 09/22/23 09/23/23 11:59 11:59 11:59 11:59 Weight 93.894 kg 93.6 kg - Lab Result Diagrams: 09/22/23 18:40 09/22/23 05:23 Lab Results-Last 24 Hrs: Lab Results-Last 24 Hours 09/22/23 09/22/23 09/22/23 Range/Units 05:23 05:23 05:23 WBC 8.0 (4.23-9.07) x10^3/uL RBC 5.38 (4.63-6.08) x10^6/uL Hgb 16.5 (13.7-17.5) g/dL Hct 49.8 (40.1-51.0) % MCV 92.6 H (79.0-92.2) fL MCH 30.7 (25.7-32.2) pg MCHC 33.1 (32.3-36.5) g/dL RDW 12.9 (11.6-14.4) % Plt Count 423 H (163-337) x10^3/uL MPV 9.7 (9.4-12.4) fL Gran % 66.0 (34.0-67.9) % Immature Gran % (Auto) 0.2 (0.001-0.429) % Nucleat RBC Rel Count 0.0 (0.00-0.2) % Eos # (Auto) 0.08 (0.04-0.54) x10^3/uL Immature Gran # (Auto) 0.02 (0.001-0.031) x10^3u/L Absolute Lymphs (auto) 2.03 (1.32-3.57) x10^3/uL Absolute Monos (auto) 0.51 (0.30-0.82) x10^3/uL Absolute Nucleated RBC 0.00 (0.00-0.012) x10^3u/L Lymphocytes % 25.3 (21.8-53.1) % Monocytes % 6.4 (5.3-12.2) % Eosinophils % 1.0 (0.8-7.0) % Basophils % 1.1 (0.2-1.2) % Absolute Granulocytes 5.29 (1.78-5.38) x10^3/uL Basophils # 0.09 H (0.01-0.08) x10^3/uL PT (9.4-12.5) SECONDS INR (0.8-3.0) APTT (25.1-36.5) SECONDS Sodium 138 (135-145) mmol/L Potassium 4.4 (3.5-5.1) mmol/L Chloride 103 (98-107) mmol/L Carbon Dioxide 28 (22-30) mmol/L Anion Gap 11.4 (5-15) MEQ/L BUN 14 (9-20) mg/dL Creatinine 1.22 (0.66-1.25) mg/dL Estimated GFR 65.0 ML/MIN Glucose 183 H (74-106) mg/dL Calcium 9.4 (8.4-10.2) mg/dL Magnesium 2.2 (1.6-2.3) mg/dL Total Bilirubin 0.60 (0.2-1.3) mg/dL AST 23 (17-59) U/L ALT 17 (0-50) U/L Alkaline Phosphatase 70 (38-126) U/L Troponin I 0.080 H* (0.000-0.033) ng/mL NT-Pro-B Natriuret Pep 231 (<300) pg/mL Serum Total Protein 7.3 (6.3-8.2) g/dL Albumin 4.1 (3.5-5.0) g/dL Urine Opiates Level (NEGATIVE) Ur Methadone (NEGATIVE) Urine Barbiturates (NEGATIVE) Ur Phencyclidine (PCP) (NEGATIVE) Urine Amphetamine (NEGATIVE) U Benzodiazepine Level (NEGATIVE) Urine Cocaine (NEGATIVE) Urine Marijuana (THC) (NEGATIVE) Ethyl Alcohol < 10 (0-10) mg/dL 09/22/23 09/22/23 09/22/23 Range/Units 05:41 08:25 12:55 WBC (4.23-9.07) x10^3/uL RBC (4.63-6.08) x10^6/uL Hgb (13.7-17.5) g/dL Hct (40.1-51.0) % MCV (79.0-92.2) fL MCH (25.7-32.2) pg MCHC (32.3-36.5) g/dL RDW (11.6-14.4) % Plt Count (163-337) x10^3/uL MPV (9.4-12.4) fL Gran % (34.0-67.9) % Immature Gran % (Auto) (0.001-0.429) % Nucleat RBC Rel Count (0.00-0.2) % Eos # (Auto) (0.04-0.54) x10^3/uL Immature Gran # (Auto) (0.001-0.031) x10^3u/L Absolute Lymphs (auto) (1.32-3.57) x10^3/uL Absolute Monos (auto) (0.30-0.82) x10^3/uL Absolute Nucleated RBC (0.00-0.012) x10^3u/L Lymphocytes % (21.8-53.1) % Monocytes % (5.3-12.2) % Eosinophils % (0.8-7.0) % Basophils % (0.2-1.2) % Absolute Granulocytes (1.78-5.38) x10^3/uL Basophils # (0.01-0.08) x10^3/uL PT (9.4-12.5) SECONDS INR (0.8-3.0) APTT (25.1-36.5) SECONDS Sodium (135-145) mmol/L Potassium (3.5-5.1) mmol/L Chloride (98-107) mmol/L Carbon Dioxide (22-30) mmol/L Anion Gap (5-15) MEQ/L BUN (9-20) mg/dL Creatinine (0.66-1.25) mg/dL Estimated GFR ML/MIN Glucose (74-106) mg/dL Calcium (8.4-10.2) mg/dL Magnesium (1.6-2.3) mg/dL Total Bilirubin (0.2-1.3) mg/dL AST (17-59) U/L ALT (0-50) U/L Alkaline Phosphatase (38-126) U/L Troponin I 0.077 H* 0.076 H* (0.000-0.033) ng/mL NT-Pro-B Natriuret Pep (<300) pg/mL Serum Total Protein (6.3-8.2) g/dL Albumin (3.5-5.0) g/dL Urine Opiates Level NEGATIVE (NEGATIVE) Ur Methadone NEGATIVE (NEGATIVE) Urine Barbiturates NEGATIVE (NEGATIVE) Ur Phencyclidine (PCP) NEGATIVE (NEGATIVE) Urine Amphetamine NEGATIVE (NEGATIVE) U Benzodiazepine Level NEGATIVE (NEGATIVE) Urine Cocaine NEGATIVE (NEGATIVE) Urine Marijuana (THC) NEGATIVE (NEGATIVE) Ethyl Alcohol (0-10) mg/dL 09/22/23 09/22/23 Range/Units 18:40 18:40 WBC 11.9 H (4.23-9.07) x10^3/uL RBC 5.23 (4.63-6.08) x10^6/uL Hgb 16.0 (13.7-17.5) g/dL Hct 50.9 (40.1-51.0) % MCV 97.3 H (79.0-92.2) fL MCH 30.6 (25.7-32.2) pg MCHC 31.4 L (32.3-36.5) g/dL RDW 13.0 (11.6-14.4) % Plt Count 381 H (163-337) x10^3/uL MPV 9.6 (9.4-12.4) fL Gran % (34.0-67.9) % Immature Gran % (Auto) (0.001-0.429) % Nucleat RBC Rel Count (0.00-0.2) % Eos # (Auto) (0.04-0.54) x10^3/uL Immature Gran # (Auto) (0.001-0.031) x10^3u/L Absolute Lymphs (auto) (1.32-3.57) x10^3/uL Absolute Monos (auto) (0.30-0.82) x10^3/uL Absolute Nucleated RBC (0.00-0.012) x10^3u/L Lymphocytes % (21.8-53.1) % Monocytes % (5.3-12.2) % Eosinophils % (0.8-7.0) % Basophils % (0.2-1.2) % Absolute Granulocytes (1.78-5.38) x10^3/uL Basophils # (0.01-0.08) x10^3/uL PT 10.9 (9.4-12.5) SECONDS INR 1.00 (0.8-3.0) APTT 25.9 (25.1-36.5) SECONDS Sodium (135-145) mmol/L Potassium (3.5-5.1) mmol/L Chloride (98-107) mmol/L Carbon Dioxide (22-30) mmol/L Anion Gap (5-15) MEQ/L BUN (9-20) mg/dL Creatinine (0.66-1.25) mg/dL Estimated GFR ML/MIN Glucose (74-106) mg/dL Calcium (8.4-10.2) mg/dL Magnesium (1.6-2.3) mg/dL Total Bilirubin (0.2-1.3) mg/dL AST (17-59) U/L ALT (0-50) U/L Alkaline Phosphatase (38-126) U/L Troponin I (0.000-0.033) ng/mL NT-Pro-B Natriuret Pep (<300) pg/mL Serum Total Protein (6.3-8.2) g/dL Albumin (3.5-5.0) g/dL Urine Opiates Level (NEGATIVE) Ur Methadone (NEGATIVE) Urine Barbiturates (NEGATIVE) Ur Phencyclidine (PCP) (NEGATIVE) Urine Amphetamine (NEGATIVE) U Benzodiazepine Level (NEGATIVE) Urine Cocaine (NEGATIVE) Urine Marijuana (THC) (NEGATIVE) Ethyl Alcohol (0-10) mg/dL - Radiology Exams Ordered Rad Exams-Entire Visit: Radiology Procedures Category Date Time Status CHEST 1 VIEW (PORTABLE) Stat Exams 09/22/23 05:07 Completed ECHO W/2D AND DOPPLER [US] Stat Exams 09/23/23 07:00 Ordered ECHO W/2D AND DOPPLER [US] Stat Exams 09/23/23 07:00 Stop Req - Procedures and Test Procedures and Tests throughout Hospitalization: Therapy Orders & Screens 09/22/23 16:15 EKG REPEAT IN AM Comment: 09/22/23 17:06 Respiratory Therapy Consult ONCE Comment: Reason For Exam: Diagnosis: ACS 09/22/23 17:43 Respiratory Therapy Assessment DAILY Comment: Diagnosis: ACS <CASSIUSMATKaleyNAZARIO - Last Filed: 09/22/23 22:55> Discharge Exam General Appearance: no apparent distress Neurologic Exam: alert, oriented x 3, cooperative Eye Exam: PERRL Ears, Nose, Throat Exam: normal ENT inspection Neck Exam: normal inspection Respiratory Exam: normal breath sounds, lungs clear Cardiovascular Exam: regular rate/rhythm, normal heart sounds Gastrointestinal/Abdomen Exam: soft, normal bowel sounds Male Genitalia Exam: deferred Rectal Exam: deferred Back Exam: normal inspection Extremity Exam: normal inspection Skin Exam: normal color <ELIZABETH MCKEON - Last Filed: 09/22/23 18:27> Final Diagnosis/Problem List - Final Discharge Diagnosis/Problem (1) Chest pain Current Visit: Yes Status: Acute Code(s): R07.9 - CHEST PAIN, UNSPECIFIED (2) COPD (chronic obstructive pulmonary disease) Current Visit: Yes Status: Acute (3) Elevated troponin Current Visit: Yes Status: Acute Code(s): R79.89 - OTHER SPECIFIED ABNORMAL FINDINGS OF BLOOD CHEMISTRY (4) Non-compliance Current Visit: No Status: Acute Code(s): Z91.199 - PT NONCOMPL WITH OTHER MED TRTMT AND REGIMEN D/T UNSP REASON (5) Hypertension Current Visit: No Status: Chronic Code(s): I10 - ESSENTIAL (PRIMARY) HYPERTENSION <ELIZABETH MCKEON - Last Filed: 09/22/23 18:27> <ELIZABETH MCKEON - Last Filed: 09/22/23 18:27> <NAZARIO OCONNELL - Last Filed: 09/22/23 22:55> - Discharge Disposition: DC TO OTHER HOSP Condition: Stable Prescriptions: New Nitroglycerin 0.4 mg Tablet [Nitrostat 0.4 MG Tablet] 0.4 mg SL Q5MIN PRN MR X 3 PRN PRN Reason: Chest Pain Acetaminophen 325 mg [Tylenol 325 mg] 650 mg PO Q4H PRN PRN tablet PRN Reason: Pain, Fever, Headache Albuterol Common Canister [Ventolin Common Canister] 4 puff IH Q4H PRN PRN PRN Reason: Shortness Of Breath/Wheezing Ondansetron HCl 4 mg/2 ml [Zofran 4 MG/2 ML VIAL] 4 mg IV Q6H PRN PRN PRN Reason: Nausea/Vomiting Continue Metoprolol Succinate 50 mg [Toprol Xl 50 MG] 50 mg PO DAILY Lisinopril 10 mg [Zestril 10 MG] 10 mg PO DAILY Furosemide 20 mg [Lasix 20 mg] 20 mg PO DAILY Atorvastatin Calcium 20 mg PO DAILY Follow up with: STEWART KENDALL MD [Primary Care Provider] - FLOR Encounter - FLOR Encounter Attestation FLOR Encounter Attestation: "RADAMES Garza andshenavediscussed pertinent aspects of their care with Elizabeth Walker agree with the history, physical exam (any modifications based on my personal exam will be noted below), assessment, and plan as outlined in original note. Please see immediately below for my summary of findings and additional assessment and plan along with any meaningful corrections/explanations to the Subjective/Objective portions of the FLOR note will be noted." My portion of the encounter took place via telemedicine. -Patient with chest pain, NSTEMI with risk factors of HTN, HLD, prior smoking history. Transfer planned to [facility] for cardiology evaluation with possible cardiac cath. Sign out given to product designer and hospitalist. <NAZARIO OCONNELL - Last Filed: 09/22/23 22:55>
[2023-09-22 18:45] LABS: Hematocrit 50.9 % (40.1-51.0); Mean Cell Volume 97.3 fL (79.0-92.2); Mean Corpuscular Hemoglobin 30.6 pg (25.7-32.2); Mean Corpuscular Hgb Concent. 31.4 g/dL (32.3-36.5); Mean Platelet Volume 9.6 fL (9.4-12.4); Platelet Count 381 x10^3/uL (163-337); Red Blood Count 5.23 x10^6/uL (4.63-6.08); White Blood Count 11.9 x10^3/uL (4.23-9.07)
[2023-09-22] MEDS: HEPARIN 5000 UNITS/0.5 ML (HIGH RISK MED) IV STA (18:46)
[2023-09-22] MEDS: Heparin 25,000 units/D5W: USE ORDER SET PROTO 25,000 UNITS/250 ML BAG IV SCH (18:49)
[2023-09-22 19:05] LABS: PROTIME 10.9 SECONDS (9.4-12.5); PTT 25.9 SECONDS (25.1-36.5)
[2023-09-23] MEDS: MORPHINE SULFATE 2 MG INJ IV PRN (00:38)
[2023-09-23 02:42] LABS: Absolute Neutrophil Ct (ANC) 6.14 x10^3/uL (1.78-5.38); Basophil (Absolute #) 0.11 x10^3/uL (0.01-0.08); Eosinophil % 3.3 % (0.8-7.0); Eosinophil (Absolute #) 0.37 x10^3/uL (0.04-0.54); Hematocrit 46.7 % (40.1-51.0); Hemoglobin 15.4 g/dL (13.7-17.5); IMMATURE GRAN # 0.03 x10^3u/L (0.001-0.031); IMMATURE GRAN % 0.3 % (0.001-0.429); Lymphocyte (Absolute #) 3.25 x10^3/uL (1.32-3.57); Lymphocytes % 29.3 % (21.8-53.1); Mean Cell Volume 93.2 fL (79.0-92.2); Mean Corpuscular Hemoglobin 30.7 pg (25.7-32.2); Mean Platelet Volume 9.7 fL (9.4-12.4); Monocyte (Absolute #) 1.18 x10^3/uL (0.30-0.82); Monocytes % 10.6 % (5.3-12.2); Neutrophil % 55.5 % (34.0-67.9); Platelet Count 381 x10^3/uL (163-337); Red Blood Count 5.01 x10^6/uL (4.63-6.08); White Blood Count 11.1 x10^3/uL (4.23-9.07)
[2023-09-23 03:06] LABS: ALBUMIN 3.7 g/dL (3.5-5.0); ANION GAP 9.7 MEQ/L (5-15); BILIRUBIN,TOTAL 0.5 mg/dL (0.2-1.3); Calcium 8.7 mg/dL (8.4-10.2); Creatinine 1 1.37 mg/dL (0.66-1.25); EST GLOMERULAR FILTRATION RATE 56.5 ML/MIN; Potassium 4.5 mmol/L (3.5-5.1); Total Protein 6.7 g/dL (6.3-8.2)
[2023-09-23] MEDS ORDERED: HEPARIN 5000 UNITS/0.5 ML (HIGH RISK MED) IV PRN (06:39)
[2023-09-23] MEDS: Toprol Xl 50 MG PO SCH (09:27)
[2023-09-23] MEDS: Zestril 10 MG PO SCH (09:27)
[2023-09-23] MEDS: ZOCOR 20MG PO SCH (09:27)
[2023-09-23] MEDS: LASIX 20 MG PO SCH (09:27)
[2023-09-23] MEDS ORDERED: NON-FORMULARY ITEM (Atorvastatin Calcium [Atorvastatin Calcium] 20 MG Tablet) PO SCH (10:00)
[2023-09-23 11:14] VITALS: TEMP 97.3
--- NOTE | 2023-09-23 12:22 | PCM.DS ---
Discharge Summary Date of Admission: 09/22/23 16:05 Date of Discharge: 09/23/23 Admitting Physician: NAZARIO OCONNELL MD Consults: Consults on Case 09/22/23 05:25 ACO SDOH Referral ONCE 09/22/23 16:36 Consult Cardiology ROUTINE 09/22/23 16:52 Case Management SDOH DC Needs Assessment ROUTINE Primary Care Provider: STEWART KENDALL MD Allergies Allergies Penicillins Allergy (Verified 09/22/23 05:39) Hospital Summary - Hospital Course Hospital Course: is a 67 year old male poor historian, with a pmhx of COPD (2L oxygen prn), Stroke , and HTN who presented to ED both 09/19/23 and 09/22/23 for evaluation of chest pain. Patient states onset was about 2-3 days ago. He descri bes the pain as intermittent, left-sided with radiation to the left arm and neck with associated shortness of breath, dizziness, and nausea. Pain is sharp/pressure-like in characteristic lasting 4-5 hours per episode. He rates it a 7/10 on a numerical pain scale. He states Nitro improves the pain, movement aggravates it. He reports he follows with Dr. Jef QUAN and was recently started on medications but he is not sure what. External pharmacy shows metoprolol, lisinopril, atorvastatin, and lasix. Patient states he has not started taking any of these meds yet, nor does he take any home medications for at least one month. In ED, vitals are stable. EKG - RATE (90), Sinus Rhythm, NORMAL AXIS, NO RMAL INTERVALS (Nonsustained ventricular tachycardia/bigeminy). CXR non-acute. Labs unremarkable with the exception of the troponin which is downtrending 0.076<0.077<0.080. Patient given ASA and nitro in ED. Patient seen by cardiology- initially was not agreeable for transfer for [facility] but is now - will transfer to higher level of care for possible C. [facility] accepting Discharge Note Latest Assessment & Plan (1) Chest pain Current Visit: Yes Status: Acute Assessment & Plan: -EKG -RATE (90), Sinus Rhythm, NORMAL AXIS, NORMAL INTERVALS (Nonsustained ventricular tachycardia/bigeminy) -Cardiology consult -Nitro/Morphine -Optimize electrolytes K>4, MG>2 -Given ASA in ED -BNP WNL -Trops downtrending 0.076<0.077<0.080 -Echo -repeat trops/ekg in the a.m. 09/22: -Heparin gtt initiated by Cardio- continue- transfer to [facility] pending Code(s): R07.9 - CHEST PAIN, UNSPECIFIED (2) COPD (chronic obstructive pulmonary disease) Current Visit: Yes Status: Acute Assessment & Plan: -Does not appear to be in exacerbation -CXR with no acute findings -Baseline is 2L prn- patient states he rarely uses it -will have RT evaluate -supplemental oxygen as needed to maintain spo2 > 92% (3) Elevated troponin Current Visit: Yes Status: Acute Assessment & Plan: -see CP Code(s): R79.89 - OTHER SPECIFIED ABNORMAL FINDINGS OF BLOOD CHEMISTRY (4) Non-compliance Current Visit: No Status: Acute Assessment & Plan: -Patient states he does not take his home medications due to cost, patient is homeless and resides in his car, will have CM evaluate for available resources Code(s): Z91.199 - PT NONCOMPL WITH OTHER MED TRTMT AND REGIMEN D/T UNSP REASON (5) Hypertension Current Visit: No Status: Chronic Qualifiers: Hypertension type: unspecified Qualified Code(s): I10 - Essential (primary) hypertension Assessment & Plan: -stable, continue home meds - Vitals & Intake/Output Vital Signs: Vital Signs Temperature 97.3 F 09/23/23 11:01 Pulse Rate 65 09/23/23 11:01 Respiratory Rate 16 09/23/23 11:01 Blood Pressure 143/93 09/23/23 11:01 O2 Sat by Pulse Oximetry 94 L 09/23/23 10:01 Intake & Output: Intake & Output 09/21/23 09/22/23 09/23/23 09/24/23 11:59 11:59 11:59 11:59 Intake Total 1929 Output Total 1350 Balance 579 Weight 93.894 kg 93.3 kg - Lab Result Diagrams: 09/23/23 02:39 09/23/23 02:39 Lab Results-Last 24 Hrs: Lab Results-Last 24 Hours 09/22/23 09/22/23 09/22/23 Range/Units 12:55 18:40 18:40 WBC 11.9 H (4.23-9.07) x10^3/uL RBC 5.23 (4.63-6.08) x10^6/uL Hgb 16.0 (13.7-17.5) g/dL Hct 50.9 (40.1-51.0) % MCV 97.3 H (79.0-92.2) fL MCH 30.6 (25.7-32.2) pg MCHC 31.4 L (32.3-36.5) g/dL RDW 13.0 (11.6-14.4) % Plt Count 381 H (163-337) x10^3/uL MPV 9.6 (9.4-12.4) fL Gran % (34.0-67.9) % Immature Gran % (Auto) (0.001-0.429) % Nucleat RBC Rel Count (0.00-0.2) % Eos # (Auto) (0.04-0.54) x10^3/uL Immature Gran # (Auto) (0.001-0.031) x10^3u/L Absolute Lymphs (auto) (1.32-3.57) x10^3/uL Absolute Monos (auto) (0.30-0.82) x10^3/uL Absolute Nucleated RBC (0.00-0.012) x10^3u/L Lymphocytes % (21.8-53.1) % Monocytes % (5.3-12.2) % Eosinophils % (0.8-7.0) % Basophils % (0.2-1.2) % Absolute Granulocytes (1.78-5.38) x10^3/uL Basophils # (0.01-0.08) x10^3/uL PT 10.9 (9.4-12.5) SECONDS INR 1.00 (0.8-3.0) APTT 25.9 (25.1-36.5) SECONDS Sodium (135-145) mmol/L Potassium (3.5-5.1) mmol/L Chloride (98-107) mmol/L Carbon Dioxide (22-30) mmol/L Anion Gap (5-15) MEQ/L BUN (9-20) mg/dL Creatinine (0.66-1.25) mg/dL Estimated GFR ML/MIN Glucose (74-106) mg/dL Calcium (8.4-10.2) mg/dL Total Bilirubin (0.2-1.3) mg/dL AST (17-59) U/L ALT (0-50) U/L Alkaline Phosphatase (38-126) U/L Troponin I 0.076 H* (0.000-0.033) ng/mL NT-Pro-B Natriuret Pep (<300) pg/mL Serum Total Protein (6.3-8.2) g/dL Albumin (3.5-5.0) g/dL Triglycerides (30-150) mg/dL Cholesterol (50-200) mg/dL LDL Cholesterol (30-100) mg/dL HDL Cholesterol (40-60) mg/dL Heart Disease Risk Ratio 09/22/23 09/23/23 09/23/23 Range/Units 22:50 02:39 02:39 WBC 11.1 H (4.23-9.07) x10^3/uL RBC 5.01 (4.63-6.08) x10^6/uL Hgb 15.4 (13.7-17.5) g/dL Hct 46.7 (40.1-51.0) % MCV 93.2 H (79.0-92.2) fL MCH 30.7 (25.7-32.2) pg MCHC 33.0 (32.3-36.5) g/dL RDW 13.0 (11.6-14.4) % Plt Count 381 H (163-337) x10^3/uL MPV 9.7 (9.4-12.4) fL Gran % 55.5 (34.0-67.9) % Immature Gran % (Auto) 0.3 (0.001-0.429) % Nucleat RBC Rel Count 0.0 (0.00-0.2) % Eos # (Auto) 0.37 (0.04-0.54) x10^3/uL Immature Gran # (Auto) 0.03 (0.001-0.031) x10^3u/L Absolute Lymphs (auto) 3.25 (1.32-3.57) x10^3/uL Absolute Monos (auto) 1.18 H (0.30-0.82) x10^3/uL Absolute Nucleated RBC 0.00 (0.00-0.012) x10^3u/L Lymphocytes % 29.3 (21.8-53.1) % Monocytes % 10.6 (5.3-12.2) % Eosinophils % 3.3 (0.8-7.0) % Basophils % 1.0 (0.2-1.2) % Absolute Granulocytes 6.14 H (1.78-5.38) x10^3/uL Basophils # 0.11 H (0.01-0.08) x10^3/uL PT (9.4-12.5) SECONDS INR (0.8-3.0) APTT 63.4 H (25.1-36.5) SECONDS Sodium 139 (135-145) mmol/L Potassium 4.5 (3.5-5.1) mmol/L Chloride 107 (98-107) mmol/L Carbon Dioxide 28 (22-30) mmol/L Anion Gap 9.7 (5-15) MEQ/L BUN 18 (9-20) mg/dL Creatinine 1.37 H (0.66-1.25) mg/dL Estimated GFR 56.5 ML/MIN Glucose 137 H (74-106) mg/dL Calcium 8.7 (8.4-10.2) mg/dL Total Bilirubin 0.50 (0.2-1.3) mg/dL AST 26 (17-59) U/L ALT 15 (0-50) U/L Alkaline Phosphatase 65 (38-126) U/L Troponin I (0.000-0.033) ng/mL NT-Pro-B Natriuret Pep 326 (<300) pg/mL Serum Total Protein 6.7 (6.3-8.2) g/dL Albumin 3.7 (3.5-5.0) g/dL Triglycerides (30-150) mg/dL Cholesterol (50-200) mg/dL LDL Cholesterol (30-100) mg/dL HDL Cholesterol (40-60) mg/dL Heart Disease Risk Ratio 09/23/23 09/23/23 09/23/23 Range/Units 02:39 02:39 02:39 WBC (4.23-9.07) x10^3/uL RBC (4.63-6.08) x10^6/uL Hgb (13.7-17.5) g/dL Hct (40.1-51.0) % MCV (79.0-92.2) fL MCH (25.7-32.2) pg MCHC (32.3-36.5) g/dL RDW (11.6-14.4) % Plt Count (163-337) x10^3/uL MPV (9.4-12.4) fL Gran % (34.0-67.9) % Immature Gran % (Auto) (0.001-0.429) % Nucleat RBC Rel Count (0.00-0.2) % Eos # (Auto) (0.04-0.54) x10^3/uL Immature Gran # (Auto) (0.001-0.031) x10^3u/L Absolute Lymphs (auto) (1.32-3.57) x10^3/uL Absolute Monos (auto) (0.30-0.82) x10^3/uL Absolute Nucleated RBC (0.00-0.012) x10^3u/L Lymphocytes % (21.8-53.1) % Monocytes % (5.3-12.2) % Eosinophils % (0.8-7.0) % Basophils % (0.2-1.2) % Absolute Granulocytes (1.78-5.38) x10^3/uL Basophils # (0.01-0.08) x10^3/uL PT (9.4-12.5) SECONDS INR (0.8-3.0) APTT 54.4 H (25.1-36.5) SECONDS Sodium (135-145) mmol/L Potassium (3.5-5.1) mmol/L Chloride (98-107) mmol/L Carbon Dioxide (22-30) mmol/L Anion Gap (5-15) MEQ/L BUN (9-20) mg/dL Creatinine (0.66-1.25) mg/dL Estimated GFR ML/MIN Glucose (74-106) mg/dL Calcium (8.4-10.2) mg/dL Total Bilirubin (0.2-1.3) mg/dL AST (17-59) U/L ALT (0-50) U/L Alkaline Phosphatase (38-126) U/L Troponin I 0.075 H* (0.000-0.033) ng/mL NT-Pro-B Natriuret Pep (<300) pg/mL Serum Total Protein (6.3-8.2) g/dL Albumin (3.5-5.0) g/dL Triglycerides 100 (30-150) mg/dL Cholesterol 185 (50-200) mg/dL LDL Cholesterol 114 H (30-100) mg/dL HDL Cholesterol 60 (40-60) mg/dL Heart Disease Risk Ratio 3.0 / Range/Units 10:20 WBC (4.23-9.07) x10^3/uL RBC (4.63-6.08) x10^6/uL Hgb (13.7-17.5) g/dL Hct (40.1-51.0) % MCV (79.0-92.2) fL MCH (25.7-32.2) pg MCHC (32.3-36.5) g/dL RDW (11.6-14.4) % Plt Count (163-337) x10^3/uL MPV (9.4-12.4) fL Gran % (34.0-67.9) % Immature Gran % (Auto) (0.001-0.429) % Nucleat RBC Rel Count (0.00-0.2) % Eos # (Auto) (0.04-0.54) x10^3/uL Immature Gran # (Auto) (0.001-0.031) x10^3u/L Absolute Lymphs (auto) (1.32-3.57) x10^3/uL Absolute Monos (auto) (0.30-0.82) x10^3/uL Absolute Nucleated RBC (0.00-0.012) x10^3u/L Lymphocytes % (21.8-53.1) % Monocytes % (5.3-12.2) % Eosinophils % (0.8-7.0) % Basophils % (0.2-1.2) % Absolute Granulocytes (1.78-5.38) x10^3/uL Basophils # (0.01-0.08) x10^3/uL PT (9.4-12.5) SECONDS INR (0.8-3.0) APTT 40.7 H (25.1-36.5) SECONDS Sodium (135-145) mmol/L Potassium (3.5-5.1) mmol/L Chloride (98-107) mmol/L Carbon Dioxide (22-30) mmol/L Anion Gap (5-15) MEQ/L BUN (9-20) mg/dL Creatinine (0.66-1.25) mg/dL Estimated GFR ML/MIN Glucose (74-106) mg/dL Calcium (8.4-10.2) mg/dL Total Bilirubin (0.2-1.3) mg/dL AST (17-59) U/L ALT (0-50) U/L Alkaline Phosphatase (38-126) U/L Troponin I (0.000-0.033) ng/mL NT-Pro-B Natriuret Pep (<300) pg/mL Serum Total Protein (6.3-8.2) g/dL Albumin (3.5-5.0) g/dL Triglycerides (30-150) mg/dL Cholesterol (50-200) mg/dL LDL Cholesterol (30-100) mg/dL HDL Cholesterol (40-60) mg/dL Heart Disease Risk Ratio - Radiology Exams Ordered Rad Exams-Entire Visit: Radiology Procedures Category Date Time Status CHEST 1 VIEW (PORTABLE) Stat Exams 09/22/23 05:07 Completed ECHO W/2D AND DOPPLER [US] Stat Exams 09/23/23 07:00 Taken - Procedures and Test Procedures and Tests throughout Hospitalization: Therapy Orders & Screens 09/22/23 16:15 EKG REPEAT IN AM Comment: 09/22/23 17:06 Respiratory Therapy Consult ONCE Comment: Reason For Exam: Diagnosis: ACS 09/22/23 17:43 Respiratory Therapy Assessment DAILY Comment: Diagnosis: ACS Discharge Exam General Appearance: no apparent distress Neurologic Exam: alert, oriented x 3, cooperative Eye Exam: PERRL Ears, Nose, Throat Exam: normal ENT inspection Neck Exam: normal inspection Respiratory Exam: normal breath sounds, lungs clear Cardiovascular Exam: regular rate/rhythm, normal heart sounds Gastrointestinal/Abdomen Exam: soft, normal bowel sounds Male Genitalia Exam: deferred Rectal Exam: deferred Back Exam: normal inspection Extremity Exam: normal inspection Skin Exam: normal color Final Diagnosis/Problem List - Final Discharge Diagnosis/Problem (1) Chest pain Current Visit: Yes Status: Acute Code(s): R07.9 - CHEST PAIN, UNSPECIFIED (2) COPD (chronic obstructive pulmonary disease) Current Visit: Yes Status: Acute (3) Elevated troponin Current Visit: Yes Status: Acute Code(s): R79.89 - OTHER SPECIFIED ABNORMAL FINDINGS OF BLOOD CHEMISTRY (4) Non-compliance Current Visit: No Status: Acute Code(s): Z91.199 - PT NONCOMPL WITH OTHER MED TRTMT AND REGIMEN D/T UNSP REASON (5) Hypertension Current Visit: No Status: Chronic Code(s): I10 - ESSENTIAL (PRIMARY) HYPERTENSION - Discharge Disposition: DC TO OTHER HOSP Condition: Stable Prescriptions: New Nitroglycerin 0.4 mg Tablet [Nitrostat 0.4 MG Tablet] 0.4 mg SL Q5MIN PRN MR X 3 PRN PRN Reason: Chest Pain Acetaminophen 325 mg [Tylenol 325 mg] 650 mg PO Q4H PRN PRN tablet PRN Reason: Pain, Fever, Headache Albuterol Common Canister [Ventolin Common Canister] 4 puff IH Q4H PRN PRN PRN Reason: Shortness Of Breath/Wheezing Ondansetron HCl 4 mg/2 ml [Zofran 4 MG/2 ML VIAL] 4 mg IV Q6H PRN PRN PRN Reason: Nausea/Vomiting Continue Metoprolol Succinate 50 mg [Toprol Xl 50 MG] 50 mg PO DAILY Lisinopril 10 mg [Zestril 10 MG] 10 mg PO DAILY Furosemide 20 mg [Lasix 20 mg] 20 mg PO DAILY Atorvastatin Calcium 20 mg PO DAILY Follow up with: STEWART KENDALL MD [Primary Care Provider] -
[2023-09-23 15:47] VITALS: BP 159/92; PULSE 72; RESP 21; O2SAT 97
== END 2023-09-23 16:15 | disposition home or self-care (01) ==
LOC: ED 04:57 → MED SURG 16:05 → ICU 18:30
PROVIDERS: ADMIT Internal Medicine; ATTEND Internal Medicine
DX: R07.9 Chest pain, unspecified (principal); Z59.82 Transportation insecurity; Z59.811 Housing instability, housed, with risk of homelessness; Z59.41 Food insecurity; J44.9 Chronic obstructive pulmonary disease, unspecified; R79.89 Other specified abnormal findings of blood chemistry; Z91.199 Patient's noncompliance with other medical treatment and regimen due to unspecified reason; I10 Essential (primary) hypertension; E78.5 Hyperlipidemia, unspecified; Z86.73 Personal history of transient ischemic attack (TIA), and cerebral infarction without residual deficits; Z79.899 Other long term (current) drug therapy
CPT/HCPCS: 36000; 36415; 71045; 80053; 80061; 80307; 82077; 83721; 83735; 83880; 84484; 85025; 85027; 85610; 85730; 93005; 93041; 93268; 93306; 94760; 99285; J1644; J2270; Q3014; A9270-GY; G0378

== ENCOUNTER 2023-10-01 18:04 | Emergency (ER) | payer MEDICARE ==
[2023-10-01 18:16] VITALS: TEMP 97.6; O2SAT 97
--- NOTE | 2023-10-01 18:21 | ERPHSYRPT ---
<DOUGLAS GILLIS - Last Filed: 10/01/23 21:41> - History of Present Illness Time Seen by Provider: 10/01/23 18:21 Aspirin Treatment Today: no aspirin today Allergies/Adverse Reactions: Penicillins Allergy (Verified 10/01/23 18:06) Home Medications: Atorvastatin Calcium 20 mg PO DAILY 09/22/23 [History] Furosemide 20 mg [Lasix 20 mg] 20 mg PO DAILY 09/22/23 [History] Lisinopril 10 mg [Zestril 10 MG] 10 mg PO DAILY 09/22/23 [History] Metoprolol Succinate 50 mg [Toprol Xl 50 MG] 50 mg PO DAILY 09/22/23 [History] - Progress Air Movement: good Progress Note: 10/01/23 21:18 I assumed care of this patient at 7 PM [address] shift change[address] Valdez evaluated this patient and performed history and physical exam prior to my arrival to the emergency department. He ordered the workup. I interpreted the preliminary report on the patient's chest x-ray. There are no acute cardiopulmonary processes. The CT scan of the chest with contrast was interpreted by the radiologist. The radiologist impression states moderate to marked central lobar emphysema. There is a soft tissue density/nodule measuring 7 mm that is spiculated in the right upper lobe. There is evidence of cholelithiasis and a soft tissue density lesion with calcifications in the retroperitoneum. The radiologist recommends outpatient CT scan of the abdomen pelvis with contrast. I have requested an addendum by the radiologist. The radiologist did not address the presence or absence of a pulmonary embolus. 10/01/23 21:41 Patient is adamant he no longer wishes to wait for any other study results. He is refusing repeat twelve-lead EKG. He is refusing repeat lab draw for repeat troponin. He is signing out AGAINST MEDICAL ADVICE. Patient is awake alert oriented. He is understanding that by him leaving this puts him at risk for worsening condition and possible . He will sign the AGAINST MEDICAL ADVICE form. 10/01/23 21:44 I discussed with the patient the findings of the CT scan of the chest and the importance of following up as recommended on the findings of spiculated nodule in the right upper lobe of his lung and the finding of soft tissue density lesion with calcification to the retroperitoneum. Patient voices his understanding. Blood Culture(s) Obtained: No Antibiotics given: No Counseled pt/family regarding: lab results, diagnosis, rad results Medical Desision Making - Diagnostic Testing Diagnostic test were ordered, analyzed, and reviewed by me: Yes Radiological Interpretation: Interpreted by me, Reviewed by me, Teleradiologist Report - Risk of complications The pt has a high risk of morbidity or mortality based on: Decision regarding hospitilization or escalation of hosp level of care - Departure Departure Disposition: AMA Clinical Impression: Right upper lobe pulmonary nodule, Retroperitoneal mass Condition: Fair Critical Care Time: No Referrals: STEWART KENDALL MD [Primary Care Provider] - Follow up/PCP as directed <ALDO VALDEZ - Last Filed: 10/01/23 23:30> - History of Present Illness Historian: patient Exam Limitations: other (poor historian) Physician History: The patient, with a history of recent hospitalization for cardiac issues, presents with recurrent chest pain. He reports feeling 'sick' and experiencing chest discomfort, similar to the symptoms that led to his initial hospitalization. He also notes some difficulty breathing. The patient underwent a cardiac catheterization during his hospital stay, though he is unsure if stents were placed. 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 The patient has a history of substance use but has been clean for the past six months. Timing/Duration: today Activities at Onset: rest Quality: pressure, sharpness Location: substernal Chest Pain Radiation: no radiation Severity of Pain-Max: moderate Severity of Pain-Current: moderate Modifying Factors: Improves With: other (unable to determine) Associated Symptoms: shortness of breath, No nausea, No vomiting, No palpitations, No abdominal pain, No cough, No hurts to breathe, No chills, No fever, No fatigue, No edema Prior Chest Pain/Cardiac Workup: cardiac cath Nitro Today/Relief: no nitro taken today Hx Tetanus, Diphtheria Vaccination/Date Given: Yes Hx Influenza Vaccination/Date Given: No Hx Pneumococcal Vaccination/Date Given: No Travel Risk - Emerging Infectious Disease Are you exhibiting symptoms associated with any current EIDs: No - Review of Systems All Other Systems: Reviewed and Negative - Past Medical History Pertinent Past Medical History: Yes Neurological History: Stroke ENT History: No Pertinent History Cardiac History: Arrhythmia, High Cholesterol, Hypertension Respiratory History: Asthma, COPD, Pneumonia Endocrine Medical History: No Pertinent History Musculoskeletal History: Arthritis, Fractures GI Medical History: No Pertinent History History: No Pertinent History Psycho-Social History: No Pertinent History Male Reproductive Disorders: No Pertinent History Other Medical History: pt is a poor historian, and unsure. Completed to best of ability. - Past Surgical History Past Surgical History: Yes Neuro Surgical History: No Pertinent History Cardiac: No Pertinent History Respiratory: No Pertinent History Gastrointestinal: No Pertinent History Genitourinary: No Pertinent History Musculoskeletal: No Pertinent History Male Surgical History: No Pertinent History Other Surgical History: SPLEEN REMOVED-several years ago Significant Family History: no pertinent family hx - Social History Smoking Status: Former smoker How long have you smoked: YRS Exposure to second hand smoke: Yes Drug Use: none Patient Lives Alone: Yes - Social Determinants of Health Will the patient participate in the screening: Yes Do you worry about a steady place to live?: Yes In the past 12 months,have you had to go without utilities?: Yes Transportation Issues: Yes Has anyone in your support network made you feel unsafe?: No Have you or anyone in your house had to go without enough: Yes Comment: pt states sometimes he stays with his sister - Nursing Vital Signs Nursing Vital Signs: Initial Vital Signs Pulse Rate 95 H 10/01/23 18:14 Pain Scale Pain Intensity 6 - Physical Exam General Appearance: no apparent distress Eye Exam: eyes nml inspection Ears, Nose, Throat Exam: normal ENT inspection Neck Exam: normal inspection, non-tender, supple, full range of motion Respiratory Exam: normal breath sounds, lungs clear, respiratory distress, airway intact, No chest tenderness Cardiovascular Exam: regular rate/rhythm, normal heart sounds, capillary refill <2 sec, No edema Gastrointestinal/Abdomen Exam: soft, No tenderness Neurologic Exam: alert, uncooperative Skin Exam: normal color, warm, dry SpO2 Interpretation: normal SpO2: 97 O2 Delivery: Room Air - Course Nursing assessment & vital signs reviewed: Yes EKG Interpreted by Me: RATE (94), NORMAL AXIS, Other (ST depression II, III, V3, V4, V5, V6) Ordered Tests: Active Orders 24 hr Category Date Time Status AMA [Release AMA] OM.NOW Care 10/01/23 21:41 Completed Shower Attendant STAT Care 10/01/23 18:09 Completed EKG-ER Only STAT Care 10/01/23 18:08 Completed IV Insertion STAT Care 10/01/23 18:08 Completed ACO SDOH Referral ONCE Cons 10/01/23 18:24 Completed CHEST 1 VIEW (PORTABLE) Stat Exams 10/01/23 18:09 Completed CHEST WITH CONTRAST [CT] Stat Exams 10/01/23 19:10 Completed CBC W DIFF Stat Lab 10/01/23 18:20 Completed CMP Stat Lab 10/01/23 18:20 Completed D-DIMER QUANTITATIVE Stat Lab 10/01/23 18:20 Completed NT PRO BNPII Stat Lab 10/01/23 18:20 Completed TROPONIN Q4H Lab 10/01/23 18:20 Completed Urine Triage Profile Stat Lab 10/01/23 21:12 Completed Medication Summary Discontinued Medications Generic Name Dose Route Start Last Admin Trade Name Freq PRN Reason Stop Dose Admin Sodium Chloride 1,000 mls @ 999 mls/hr 10/01/23 18:23 10/01/23 20:37 Sodium Chloride 0.9% 1000 Ml IV 10/01/23 19:23 Infused .Q1H1M STA Infusion Sodium Chloride Confirm 10/01/23 19:34 Sodium Chloride 0.9% 1000 Ml Administered 10/01/23 19:35 Dose 1,000 mls @ ud .ROUTE .STK-MED ONE Labetalol HCl 20 mg 10/01/23 18:23 Labetalol Hcl 20 Mg/4 Ml Disp.Syringe IV 10/01/23 18:24 STAT ONE Morphine Sulfate 4 mg 10/01/23 21:18 Morphine Sulfate 4 Mg/Ml Injection IV 10/01/23 21:19 STAT ONE Ondansetron HCl 4 mg 10/01/23 21:18 Ondansetron Hcl 4 Mg/2 Ml Vial IV 10/01/23 21:19 STAT ONE Lab/Rad Data: Laboratory Result Diagrams 10/01/23 18:20 10/01/23 18:20 Laboratory Results 10/01/23 10/01/23 10/01/23 Range/Units 21:12 18:20 18:20 WBC (4.23-9.07) x10^3/uL RBC (4.63-6.08) x10^6/uL Hgb (13.7-17.5) g/dL Hct (40.1-51.0) % MCV (79.0-92.2) fL MCH (25.7-32.2) pg MCHC (32.3-36.5) g/dL RDW (11.6-14.4) % Plt Count (163-337) x10^3/uL MPV (9.4-12.4) fL Gran % (34.0-67.9) % Immature Gran % (Auto) (0.001-0.429) % Nucleat RBC Rel Count (0.00-0.2) % Eos # (Auto) (0.04-0.54) x10^3/uL Immature Gran # (Auto) (0.001-0.031) x10^3u/L Absolute Lymphs (auto) (1.32-3.57) x10^3/uL Absolute Monos (auto) (0.30-0.82) x10^3/uL Absolute Nucleated RBC (0.00-0.012) x10^3u/L Lymphocytes % (21.8-53.1) % Monocytes % (5.3-12.2) % Eosinophils % (0.8-7.0) % Basophils % (0.2-1.2) % Absolute Granulocytes (1.78-5.38) x10^3/uL Basophils # (0.01-0.08) x10^3/uL D-Dimer 0.73 H* (0.0-0.50) mg/L Sodium (135-145) mmol/L Potassium (3.5-5.1) mmol/L Chloride (98-107) mmol/L Carbon Dioxide (22-30) mmol/L Anion Gap (5-15) MEQ/L BUN (9-20) mg/dL Creatinine (0.66-1.25) mg/dL Estimated GFR ML/MIN Glucose (74-106) mg/dL Calcium (8.4-10.2) mg/dL Total Bilirubin (0.2-1.3) mg/dL AST (17-59) U/L ALT (0-50) U/L Alkaline Phosphatase (38-126) U/L Troponin I < 0.012 (0.000-0.033) ng/mL NT-Pro-B Natriuret Pep (<300) pg/mL Serum Total Protein (6.3-8.2) g/dL Albumin (3.5-5.0) g/dL Urine Opiates Level NEGATIVE (NEGATIVE) Ur Methadone NEGATIVE (NEGATIVE) Urine Barbiturates NEGATIVE (NEGATIVE) Ur Phencyclidine (PCP) NEGATIVE (NEGATIVE) Urine Amphetamine NEGATIVE (NEGATIVE) U Benzodiazepine Level NEGATIVE (NEGATIVE) Urine Cocaine NEGATIVE (NEGATIVE) Urine Marijuana (THC) NEGATIVE (NEGATIVE) 10/01/23 10/01/23 Range/Units 18:20 18:20 WBC 10.5 H (4.23-9.07) x10^3/uL RBC 5.23 (4.63-6.08) x10^6/uL Hgb 16.0 (13.7-17.5) g/dL Hct 48.0 (40.1-51.0) % MCV 91.8 (79.0-92.2) fL MCH 30.6 (25.7-32.2) pg MCHC 33.3 (32.3-36.5) g/dL RDW 13.0 (11.6-14.4) % Plt Count 460 H (163-337) x10^3/uL MPV 10.3 (9.4-12.4) fL Gran % 58.3 (34.0-67.9) % Immature Gran % (Auto) 0.3 (0.001-0.429) % Nucleat RBC Rel Count 0.0 (0.00-0.2) % Eos # (Auto) 0.12 (0.04-0.54) x10^3/uL Immature Gran # (Auto) 0.03 (0.001-0.031) x10^3u/L Absolute Lymphs (auto) 2.82 (1.32-3.57) x10^3/uL Absolute Monos (auto) 1.32 H (0.30-0.82) x10^3/uL Absolute Nucleated RBC 0.00 (0.00-0.012) x10^3u/L Lymphocytes % 26.8 (21.8-53.1) % Monocytes % 12.5 H (5.3-12.2) % Eosinophils % 1.1 (0.8-7.0) % Basophils % 1.0 (0.2-1.2) % Absolute Granulocytes 6.14 H (1.78-5.38) x10^3/uL Basophils # 0.11 H (0.01-0.08) x10^3/uL D-Dimer (0.0-0.50) mg/L Sodium 141 (135-145) mmol/L Potassium 3.5 (3.5-5.1) mmol/L Chloride 107 (98-107) mmol/L Carbon Dioxide 24 (22-30) mmol/L Anion Gap 12.8 (5-15) MEQ/L BUN 15 (9-20) mg/dL Creatinine 1.20 (0.66-1.25) mg/dL Estimated GFR 66.3 ML/MIN Glucose 123 H (74-106) mg/dL Calcium 9.3 (8.4-10.2) mg/dL Total Bilirubin 0.40 (0.2-1.3) mg/dL AST 24 (17-59) U/L ALT 20 (0-50) U/L Alkaline Phosphatase 68 (38-126) U/L Troponin I (0.000-0.033) ng/mL NT-Pro-B Natriuret Pep 237 (<300) pg/mL Serum Total Protein 7.5 (6.3-8.2) g/dL Albumin 4.3 (3.5-5.0) g/dL Urine Opiates Level (NEGATIVE) Ur Methadone (NEGATIVE) Urine Barbiturates (NEGATIVE) Ur Phencyclidine (PCP) (NEGATIVE) Urine Amphetamine (NEGATIVE) U Benzodiazepine Level (NEGATIVE) Urine Cocaine (NEGATIVE) Urine Marijuana (THC) (NEGATIVE)
[2023-10-01] MEDS ORDERED: TRANDATE 20 MG/4 ML SYRINGE IV ONE (18:23)
[2023-10-01 18:31] LABS: Absolute Neutrophil Ct (ANC) 6.14 x10^3/uL (1.78-5.38); Basophil (Absolute #) 0.11 x10^3/uL (0.01-0.08); Eosinophil % 1.1 % (0.8-7.0); Eosinophil (Absolute #) 0.12 x10^3/uL (0.04-0.54); IMMATURE GRAN # 0.03 x10^3u/L (0.001-0.031); IMMATURE GRAN % 0.3 % (0.001-0.429); Lymphocyte (Absolute #) 2.82 x10^3/uL (1.32-3.57); Lymphocytes % 26.8 % (21.8-53.1); Mean Cell Volume 91.8 fL (79.0-92.2); Mean Corpuscular Hemoglobin 30.6 pg (25.7-32.2); Mean Corpuscular Hgb Concent. 33.3 g/dL (32.3-36.5); Mean Platelet Volume 10.3 fL (9.4-12.4); Monocyte (Absolute #) 1.32 x10^3/uL (0.30-0.82); Monocytes % 12.5 % (5.3-12.2); Neutrophil % 58.3 % (34.0-67.9); Platelet Count 460 x10^3/uL (163-337); Red Blood Count 5.23 x10^6/uL (4.63-6.08); White Blood Count 10.5 x10^3/uL (4.23-9.07)
[2023-10-01 18:50] LABS: ALBUMIN 4.3 g/dL (3.5-5.0); ANION GAP 12.8 MEQ/L (5-15); BILIRUBIN,TOTAL 0.4 mg/dL (0.2-1.3); Calcium 9.3 mg/dL (8.4-10.2); Creatinine 1 1.2 mg/dL (0.66-1.25); EST GLOMERULAR FILTRATION RATE 66.3 ML/MIN; Potassium 3.5 mmol/L (3.5-5.1); Total Protein 7.5 g/dL (6.3-8.2)
[2023-10-01] MEDS ORDERED: Sodium Chloride 0.9% 1000 ML 1,000 ML ONE (19:34)
[2023-10-01] MEDS: Sodium Chloride 0.9% 1000 ML 1,000 ML IV STA (19:36)
--- NOTE | 2023-10-01 21:06 | XRAY ---
CLINICAL HISTORY: chest pain COMPARISON: None TECHNIQUE: Contiguous 3.[address] images of the chest were acquired with the administration of intravenous contrast. Coronal and sagittal reconstructions were obtained. One of the following dose reduction techniques were utilized for this exam: Automated exposure control, adjustment of the mA and/or kV according to patient size, and use of iterative reconstruction. FINDINGS: The scanned pulmonary parenchyma shows moderate to marked centrilobular emphysematous changes involving the apical segments of bilateral upper lobes. A small 7mm solid nodule with spiculated margins is seen in the apical segment of the right upper lobe. an 8.5mm calcified nodule is seen in the anterior segment of the right upper lobe. A few fibrotic bands are seen in bilateral lower lobes. A fibrotic scar in the left upper lobe anterior segment lower down requires follow-up. no definite consolidative lesions. No free or encysted pleural effusion. Heart size is normal, and there is no pericardial effusion. A few subcentimeter mediastinal lymph nodes are seen with a right hilar calcified lymph node measuring 10 x 7mm. There is no definite mass lesion in the chest wall. The scanned upper abdomen shows a small 4mm calculus in the neck of the gallbladder and a soft tissue density lesion in the retroperitoneum distal to pancreatic tail with an internal focus of calcification measuring 35 x 25mm, for further evaluation. Old healed fractures of left 4th, 5th, and 6th ribs. IMPRESSION: 1. Moderate to marked centrilobular emphysema. 2. A soft tissue density nodule of 7mm in the apical segment of the right upper lobe showing spiculated margins. 3. A calcified nodule in the anterior segment of the right upper lobe with a few fibrotic scars in the bilateral lower lobe. 4. A fibrotic scar in the left upper lobe anterior segment lower down requires follow-up. 5. Some subcentimeter mediastinal lymph nodes and right hilar calcified lymph node. 6. Cholilithiasis and a soft tissue density lesion with calcification in the retroperitoneum, requires further assessment with CT abdomen with contrast. 7.Old healed fractures of left 4th, 5th, and 6th ribs. Follow-up CT at 6-12 months is advised according to Fleischner's guidelines. [facility] ER was called at [phone] Ext#[phone] at 8:01 PM LOCATE TECHNICIAN, 10/01/[address] Smart was notified about the Important medical findings in the report. Electronically Signed by: Gris Muller MD. (10/01/2023 21:02:24 EDT)
[2023-10-01] MEDS ORDERED: Zofran 4 MG/2 ML VIAL IV ONE (21:18)
[2023-10-01] MEDS ORDERED: MORPHINE SULFATE 4 MG INJ IV ONE (21:18)
--- NOTE | 2023-10-01 21:26 | XRAY ---
Indication: Chest pain. Comparison: September 22, 2023 Portable apical lordotic unchanged again hyperinflated and clear with incidental right lung calcified granuloma and left hemidiaphragm elevation. Heart not enlarged. No new/acute abnormalities.
[2023-10-01 21:41] VITALS: BP 137/86; PULSE 81; RESP 24
[2023-10-01 22:04] LABS: Amphetamine,Urine NEGATIVE (NEGATIVE); Barbiturate,Urine NEGATIVE (NEGATIVE); Benzodiazepine,Urine NEGATIVE (NEGATIVE); Cocaine,Urine NEGATIVE (NEGATIVE); Methadone,Urine NEGATIVE (NEGATIVE); Opiate,Urine NEGATIVE (NEGATIVE); PCP,Urine NEGATIVE (NEGATIVE); THC,Urine NEGATIVE (NEGATIVE)
== END 2023-10-01 21:41 | disposition left against medical advice (07) ==
LOC: ED 18:04
DX: R91.1 Solitary pulmonary nodule (principal); R93.5 Abnormal findings on diagnostic imaging of other abdominal regions, including retroperitoneum; R07.9 Chest pain, unspecified; E78.5 Hyperlipidemia, unspecified; I10 Essential (primary) hypertension
CPT/HCPCS: 36000; 36415; 71045; 71260; 80053; 80307; 83880; 84484; 85025; 85379; 93005; 93041; 99284

== ENCOUNTER 2023-12-26 00:36 | Emergency (ER) | payer MEDICARE ==
[2023-12-26 00:56] VITALS: TEMP 97.6
--- NOTE | 2023-12-26 01:07 | ERPHSYRPT ---
- History of Present Illness Time Seen by Provider: 12/26/23 00:55 Source: patient Exam Limitations: no limitations Patient Subjective Stated Complaint: c/o of shortness of breath and difficulty breathing Triage Nursing Assessment: Pt brought to ED by sister with c/o of difficulty breathing. Pt rates chest pain 8/10. Pt's O2 saturation is 93, but has poor perfusion to the fingers. Cap refill is 3 seconds and finger are cool and purple. Patient is slightly hypertensive, hyperventilating, lung sounds clear throughout, gait weak, pt has history of stroke, pt doesn't appear to be in distress at this time. Physician History: For the past 12 hours pt has had constant chest tightness, dyspnea and a non- productive cough; denies vomiting, abdominal pain, nausea, fever. Allergies/Adverse Reactions: Penicillins Allergy (Verified 12/26/23 00:56) Home Medications: Atorvastatin Calcium 20 mg PO DAILY 09/22/23 [History] Furosemide 20 mg [Lasix 20 mg] 20 mg PO DAILY 09/22/23 [History] Lisinopril 10 mg [Zestril 10 MG] 10 mg PO DAILY 09/22/23 [History] Metoprolol Succinate 50 mg [Toprol Xl 50 MG] 50 mg PO DAILY 09/22/23 [History] Hx Tetanus, Diphtheria Vaccination/Date Given: Yes Hx Influenza Vaccination/Date Given: No Hx Pneumococcal Vaccination/Date Given: No Travel Risk - International Travel Have you traveled outside of the country in past 3 weeks: No - Emerging Infectious Disease Are you exhibiting symptoms associated with any current EIDs: Yes Symptoms: Shortness of Breath - Review of Systems Constitutional: No Fever Respiratory: Dyspnea Cardiac: Other (chest tightness) Abdominal/Gastrointestinal: No Abdominal Pain, No Nausea, No Vomiting Neurological: No Headache - Past Medical History Pertinent Past Medical History: Yes Neurological History: Stroke ENT History: No Pertinent History Cardiac History: Arrhythmia, High Cholesterol, Hypertension Respiratory History: Asthma, COPD, Pneumonia Endocrine Medical History: No Pertinent History Musculoskeletal History: Arthritis, Fractures GI Medical History: No Pertinent History History: No Pertinent History Psycho-Social History: No Pertinent History Male Reproductive Disorders: No Pertinent History Other Medical History: pt is a poor historian, and unsure. Completed to best of ability. - Past Surgical History Past Surgical History: Yes Neuro Surgical History: No Pertinent History Cardiac: No Pertinent History Respiratory: No Pertinent History Gastrointestinal: No Pertinent History Genitourinary: No Pertinent History Musculoskeletal: No Pertinent History Male Surgical History: No Pertinent History Other Surgical History: SPLEEN REMOVED-several years ago Significant Family History: no pertinent family hx - Social History Smoking Status: Current some day smoker How long have you smoked: YRS Exposure to second hand smoke: Yes Drug Use: none Patient Lives Alone: Yes - Social Determinants of Health Will the patient participate in the screening: Yes Do you worry about a steady place to live?: Yes Do you have any problems with any of the following?: No known problems In the past 12 months,have you had to go without utilities?: No Transportation Issues: Yes Has anyone in your support network made you feel unsafe?: No Have you or anyone in your house had to go without enough: No - Nursing Vital Signs Nursing Vital Signs: Initial Vital Signs Temperature 97.6 F 12/26/23 00:37 Pulse Rate 89 12/26/23 00:37 Respiratory Rate 27 H 12/26/23 00:37 Blood Pressure 147/109 12/26/23 00:37 O2 Sat by Pulse Oximetry 96 12/26/23 00:37 Pain Scale Pain Intensity 8 - Physical Exam General Appearance: alert Eye Exam: PERRL/EOMI Ears, Nose, Throat Exam: hearing grossly normal, pharyngeal erythema Neck Exam: normal inspection Respiratory Exam: respiratory distress (mild) Cardiovascular/Chest Exam: normal heart sounds Abdominal/Gastrointestinal Exam: normal bowel sounds Extremity Exam: No pedal edema Neurologic Exam: alert, cooperative Skin Exam: No cyanosis SpO2 Interpretation: normal SpO2: 96 O2 Delivery: Room Air - Course Nursing assessment & vital signs reviewed: Yes EKG Interpreted by Me: RATE (89), Sinus Rhythm, Left [place] Deviation, Other (QTc = 505; multifocal PVC's) - CT Exams Chest CT Interpretation: Tele-radiologist Report (No evidence of pulmonary embolism. See rest of report.) Ordered Tests: Active Orders 24 hr Category Date Time Status EKG-ER Only STAT Care 12/26/23 01:10 Active IV Insertion STAT Care 12/26/23 01:10 Active CHEST WITH CONTRAST [CT] Stat Exams 12/26/23 01:11 Completed AMYLASE Stat Lab 12/26/23 01:24 Completed CBC W DIFF Stat Lab 12/26/23 01:24 Completed CMP Stat Lab 12/26/23 01:24 Completed ETHYL ALCOHOL Stat Lab 12/26/23 01:24 Completed LIPASE Stat Lab 12/26/23 01:24 Completed MAGNESIUM Stat Lab 12/26/23 01:24 Completed TROPONIN Q4H Lab 12/26/23 01:24 Completed TROPONIN Q4H Lab 12/26/23 05:15 Ordered TROPONIN Q4H Lab 12/26/23 09:15 Ordered UA W/RFX UR CULTURE Stat Lab 12/26/23 02:21 Completed Urine Triage Profile Stat Lab 12/26/23 02:21 Completed VENOUS BLOOD GAS Urgent Lab 12/26/23 01:11 Completed Medication Summary Generic Name Dose Route Start Last Admin Trade Name Freq PRN Reason Stop Dose Admin Sodium Chloride 1,000 mls @ 100 mls/hr 12/26/23 01:15 12/26/23 01:17 Sodium Chloride 0.9% 1000 Ml IV 01/25/24 01:14 100 mls/hr .Q10H GONZALEZ Administration Lab/Rad Data: Laboratory Result Diagrams 12/26/23 01:24 12/26/23 01:24 Laboratory Results 12/26/23 12/26/23 12/26/23 Range/Units 02:21 02:21 01:24 WBC (4.23-9.07) x10^3/uL RBC (4.63-6.08) x10^6/uL Hgb (13.7-17.5) g/dL Hct (40.1-51.0) % MCV (79.0-92.2) fL MCH (25.7-32.2) pg MCHC (32.3-36.5) g/dL RDW (11.6-14.4) % Plt Count (163-337) x10^3/uL MPV (9.4-12.4) fL Gran % (34.0-67.9) % Immature Gran % (Auto) (0.001-0.429) % Nucleat RBC Rel Count (0.00-0.2) % Eos # (Auto) (0.04-0.54) x10^3/uL Immature Gran # (Auto) (0.001-0.031) x10^3u/L Absolute Lymphs (auto) (1.32-3.57) x10^3/uL Absolute Monos (auto) (0.30-0.82) x10^3/uL Absolute Nucleated RBC (0.00-0.012) x10^3u/L Lymphocytes % (21.8-53.1) % Monocytes % (5.3-12.2) % Eosinophils % (0.8-7.0) % Basophils % (0.2-1.2) % Absolute Granulocytes (1.78-5.38) x10^3/uL Basophils # (0.01-0.08) x10^3/uL pO2/FiO2 Ratio % VBG pH (7.32-7.42) VBG pCO2 at Pat Temp (42-55) mm/Hg VBG pO2 at Pat Temp (25-40) mm/Hg VBG HCO3 (22-28) meq/L VBG O2 Sat ([place]) (95-100) VBG Base Excess (-2.0-2.0) VBG Hemoglobin VBG Carboxyhemoglobin (0.0-6.9) % T HGB POC Potassium (3.5-5.1) Sodium (135-145) mmol/L Potassium (3.5-5.1) mmol/L Chloride (98-107) mmol/L Carbon Dioxide (22-30) mmol/L Anion Gap (5-15) MEQ/L BUN (9-20) mg/dL Creatinine (0.66-1.25) mg/dL Estimated GFR ML/MIN Glucose (74-106) mg/dL Calcium (8.4-10.2) mg/dL Magnesium (1.6-2.3) mg/dL Total Bilirubin (0.2-1.3) mg/dL AST (17-59) U/L ALT (0-50) U/L Alkaline Phosphatase (38-126) U/L Troponin I (0.000-0.033) ng/mL Serum Total Protein (6.3-8.2) g/dL Albumin (3.5-5.0) g/dL Amylase (30-110) U/L Lipase (23-300) U/L Urine Color Yellow (Yellow) Urine Appearance Clear (Clear) Urine pH 6.5 (4.6-8.0) Ur Specific Wittmann >=1.030 A (1.005-1.030) Urine Protein Negative (Negative) Urine Glucose (UA) 250 A (Negative) mg/dL Urine Ketones Negative (Negative) Urine Blood Negative (Negative) Urine Nitrite Negative (Negative) Urine Bilirubin Negative (Negative) Urine Urobilinogen 1.0 A (0.2) mg/dL Ur Leukocyte Esterase Negative (Negative) U Hyaline Cast (Auto) NONE SEEN (0-2) /LPF Urine Microscopic RBC 0-2 (0-5) /HPF Urine Microscopic WBC 0-2 (0-5) /HPF Ur Epithelial Cells None Seen (None Seen) /HPF Urine Bacteria None Seen (None Seen) /HPF Urine Culture Reflexed NO (NO) Urine Opiates Level NEGATIVE (NEGATIVE) Ur Methadone NEGATIVE (NEGATIVE) Urine Barbiturates NEGATIVE (NEGATIVE) Ur Phencyclidine (PCP) NEGATIVE (NEGATIVE) Urine Amphetamine POSITIVE A (NEGATIVE) U Benzodiazepine Level NEGATIVE (NEGATIVE) Urine Cocaine NEGATIVE (NEGATIVE) Urine Marijuana (THC) NEGATIVE (NEGATIVE) Ethyl Alcohol (0-10) mg/dL Influenza Type A Ag NEGATIVE (NEGATIVE) Influenza Type B Ag NEGATIVE (NEGATIVE) RSV (PCR) NEGATIVE (NEGATIVE) SARS-CoV-2 (PCR) NEGATIVE (NEGATIVE) Group A Strep Antibody (NEGATIVE) 12/26/23 12/26/23 12/26/23 Range/Units 01:24 01:24 01:24 WBC (4.23-9.07) x10^3/uL RBC (4.63-6.08) x10^6/uL Hgb (13.7-17.5) g/dL Hct (40.1-51.0) % MCV (79.0-92.2) fL MCH (25.7-32.2) pg MCHC (32.3-36.5) g/dL RDW (11.6-14.4) % Plt Count (163-337) x10^3/uL MPV (9.4-12.4) fL Gran % (34.0-67.9) % Immature Gran % (Auto) (0.001-0.429) % Nucleat RBC Rel Count (0.00-0.2) % Eos # (Auto) (0.04-0.54) x10^3/uL Immature Gran # (Auto) (0.001-0.031) x10^3u/L Absolute Lymphs (auto) (1.32-3.57) x10^3/uL Absolute Monos (auto) (0.30-0.82) x10^3/uL Absolute Nucleated RBC (0.00-0.012) x10^3u/L Lymphocytes % (21.8-53.1) % Monocytes % (5.3-12.2) % Eosinophils % (0.8-7.0) % Basophils % (0.2-1.2) % Absolute Granulocytes (1.78-5.38) x10^3/uL Basophils # (0.01-0.08) x10^3/uL pO2/FiO2 Ratio % VBG pH (7.32-7.42) VBG pCO2 at Pat Temp (42-55) mm/Hg VBG pO2 at Pat Temp (25-40) mm/Hg VBG HCO3 (22-28) meq/L VBG O2 Sat ([place]) (95-100) VBG Base Excess (-2.0-2.0) VBG Hemoglobin VBG Carboxyhemoglobin (0.0-6.9) % T HGB POC Potassium (3.5-5.1) Sodium 140 (135-145) mmol/L Potassium 4.7 (3.5-5.1) mmol/L Chloride 104 (98-107) mmol/L Carbon Dioxide 27 (22-30) mmol/L Anion Gap 14.3 (5-15) MEQ/L BUN 12 (9-20) mg/dL Creatinine 1.06 (0.66-1.25) mg/dL Estimated GFR 76.4 ML/MIN Glucose 81 (74-106) mg/dL Calcium 9.9 (8.4-10.2) mg/dL Magnesium 2.4 H (1.6-2.3) mg/dL Total Bilirubin 0.60 (0.2-1.3) mg/dL AST 26 (17-59) U/L ALT 23 (0-50) U/L Alkaline Phosphatase 82 (38-126) U/L Troponin I < 0.012 (0.000-0.033) ng/mL Serum Total Protein 7.8 (6.3-8.2) g/dL Albumin 4.4 (3.5-5.0) g/dL Amylase 88 (30-110) U/L Lipase 129 (23-300) U/L Urine Color (Yellow) Urine Appearance (Clear) Urine pH (4.6-8.0) Ur Specific [place] (1.005-1.030) Urine Protein (Negative) Urine Glucose (UA) (Negative) mg/dL Urine Ketones (Negative) Urine Blood (Negative) Urine Nitrite (Negative) Urine Bilirubin (Negative) Urine Urobilinogen (0.2) mg/dL Ur Leukocyte Esterase (Negative) U Hyaline Cast (Auto) (0-2) /LPF Urine Microscopic RBC (0-5) /HPF Urine Microscopic WBC (0-5) /HPF Ur Epithelial Cells (None Seen) /HPF Urine Bacteria (None Seen) /HPF Urine Culture Reflexed (NO) Urine Opiates Level (NEGATIVE) Ur Methadone (NEGATIVE) Urine Barbiturates (NEGATIVE) Ur Phencyclidine (PCP) (NEGATIVE) Urine Amphetamine (NEGATIVE) U Benzodiazepine Level (NEGATIVE) Urine Cocaine (NEGATIVE) Urine Marijuana (THC) (NEGATIVE) Ethyl Alcohol < 10 (0-10) mg/dL Influenza Type A Ag (NEGATIVE) Influenza Type B Ag (NEGATIVE) RSV (PCR) (NEGATIVE) SARS-CoV-2 (PCR) (NEGATIVE) Group A Strep Antibody NOT DETECTED (NEGATIVE) 12/26/23 12/26/23 Range/Units 01:24 01:11 WBC 10.4 H (4.23-9.07) x10^3/uL RBC 6.04 (4.63-6.08) x10^6/uL Hgb 18.3 H (13.7-17.5) g/dL Hct 54.3 H (40.1-51.0) % MCV 89.9 (79.0-92.2) fL MCH 30.3 (25.7-32.2) pg MCHC 33.7 (32.3-36.5) g/dL RDW 13.6 (11.6-14.4) % Plt Count 529 H (163-337) x10^3/uL MPV 10.1 (9.4-12.4) fL Gran % 49.6 (34.0-67.9) % Immature Gran % (Auto) 0.3 (0.001-0.429) % Nucleat RBC Rel Count 0.0 (0.00-0.2) % Eos # (Auto) 0.18 (0.04-0.54) x10^3/uL Immature Gran # (Auto) 0.03 (0.001-0.031) x10^3u/L Absolute Lymphs (auto) 3.58 H (1.32-3.57) x10^3/uL Absolute Monos (auto) 1.31 H (0.30-0.82) x10^3/uL Absolute Nucleated RBC 0.00 (0.00-0.012) x10^3u/L Lymphocytes % 34.6 (21.8-53.1) % Monocytes % 12.6 H (5.3-12.2) % Eosinophils % 1.7 (0.8-7.0) % Basophils % 1.2 (0.2-1.2) % Absolute Granulocytes 5.14 (1.78-5.38) x10^3/uL Basophils # 0.12 H (0.01-0.08) x10^3/uL pO2/FiO2 Ratio 21.0 % VBG pH 7.41 (7.32-7.42) VBG pCO2 at Pat Temp 45 (42-55) mm/Hg VBG pO2 at Pat Temp 30 (25-40) mm/Hg VBG HCO3 28.5 H (22-28) meq/L VBG O2 Sat ([place]) 58.8 L (95-100) VBG Base Excess 3.0 H (-2.0-2.0) VBG Hemoglobin 19.3 VBG Carboxyhemoglobin 4.1 (0.0-6.9) % T HGB POC Potassium 4.9 (3.5-5.1) Sodium (135-145) mmol/L Potassium (3.5-5.1) mmol/L Chloride (98-107) mmol/L Carbon Dioxide (22-30) mmol/L Anion Gap (5-15) MEQ/L BUN (9-20) mg/dL Creatinine (0.66-1.25) mg/dL Estimated GFR ML/MIN Glucose (74-106) mg/dL Calcium (8.4-10.2) mg/dL Magnesium (1.6-2.3) mg/dL Total Bilirubin (0.2-1.3) mg/dL AST (17-59) U/L ALT (0-50) U/L Alkaline Phosphatase (38-126) U/L Troponin I (0.000-0.033) ng/mL Serum Total Protein (6.3-8.2) g/dL Albumin (3.5-5.0) g/dL Amylase (30-110) U/L Lipase (23-300) U/L Urine Color (Yellow) Urine Appearance (Clear) Urine pH (4.6-8.0) Ur Specific [place] (1.005-1.030) Urine Protein (Negative) Urine Glucose (UA) (Negative) mg/dL Urine Ketones (Negative) Urine Blood (Negative) Urine Nitrite (Negative) Urine Bilirubin (Negative) Urine Urobilinogen (0.2) mg/dL Ur Leukocyte Esterase (Negative) U Hyaline Cast (Auto) (0-2) /LPF Urine Microscopic RBC (0-5) /HPF Urine Microscopic WBC (0-5) /HPF Ur Epithelial Cells (None Seen) /HPF Urine Bacteria (None Seen) /HPF Urine Culture Reflexed (NO) Urine Opiates Level (NEGATIVE) Ur Methadone (NEGATIVE) Urine Barbiturates (NEGATIVE) Ur Phencyclidine (PCP) (NEGATIVE) Urine Amphetamine (NEGATIVE) U Benzodiazepine Level (NEGATIVE) Urine Cocaine (NEGATIVE) Urine Marijuana (THC) (NEGATIVE) Ethyl Alcohol (0-10) mg/dL Influenza Type A Ag (NEGATIVE) Influenza Type B Ag (NEGATIVE) RSV (PCR) (NEGATIVE) SARS-CoV-2 (PCR) (NEGATIVE) Group A Strep Antibody (NEGATIVE) - Progress Progress: unchanged Counseled pt/family regarding: lab results, diagnosis, need for follow-up, rad results Medical Desision Making - Diagnostic Testing Diagnostic test were ordered, analyzed, and reviewed by me: Yes Radiological Interpretation: Teleradiologist Report - Departure Departure Disposition: Home Clinical Impression: Chest tightness, Dyspnea, UDS + for amphetamine Condition: Stable Critical Care Time: No Referrals: STEWART KENDALL MD [Primary Care Provider] - Follow up/PCP as directed Instructions: Shortness of Breath (Dyspnea) (DC) Additional Instructions: Follow up with private doctor tomorrow. Avoid amphetamine use.
[2023-12-26] MEDS ORDERED: Sodium Chloride 0.9% 1000 ML 1,000 ML ONE (01:14)
[2023-12-26] MEDS: Sodium Chloride 0.9% 1000 ML 1,000 ML IV SCH (01:17)
[2023-12-26 01:21] LABS: VBG CARBOXYHEMOGLOBIN 4.1 % T HGB (0.0-6.9); VBG HCO3- 28.5 meq/L (22-28); VBG HEMOGLOBIN 19.3; VBG O2 SATURATION 58.8 (95-100); VBG POTASSIUM 4.9 (3.5-5.1); VBG pH 7.41 (7.32-7.42)
[2023-12-26 01:27] LABS: Absolute Neutrophil Ct (ANC) 5.14 x10^3/uL (1.78-5.38); BASOPHIL % 1.2 % (0.2-1.2); Basophil (Absolute #) 0.12 x10^3/uL (0.01-0.08); Eosinophil % 1.7 % (0.8-7.0); Eosinophil (Absolute #) 0.18 x10^3/uL (0.04-0.54); Hematocrit 54.3 % (40.1-51.0); Hemoglobin 18.3 g/dL (13.7-17.5); IMMATURE GRAN # 0.03 x10^3u/L (0.001-0.031); IMMATURE GRAN % 0.3 % (0.001-0.429); Lymphocyte (Absolute #) 3.58 x10^3/uL (1.32-3.57); Lymphocytes % 34.6 % (21.8-53.1); Mean Cell Volume 89.9 fL (79.0-92.2); Mean Corpuscular Hemoglobin 30.3 pg (25.7-32.2); Mean Corpuscular Hgb Concent. 33.7 g/dL (32.3-36.5); Mean Platelet Volume 10.1 fL (9.4-12.4); Monocyte (Absolute #) 1.31 x10^3/uL (0.30-0.82); Monocytes % 12.6 % (5.3-12.2); Neutrophil % 49.6 % (34.0-67.9); Platelet Count 529 x10^3/uL (163-337); Red Blood Count 6.04 x10^6/uL (4.63-6.08); Red Cell Distribution Width 13.6 % (11.6-14.4); White Blood Count 10.4 x10^3/uL (4.23-9.07)
[2023-12-26 01:40] LABS: ALBUMIN 4.4 g/dL (3.5-5.0); ALKALINE PHOSPHATASE 82 U/L (38-126); AMYLASE 88 U/L (30-110); ANION GAP 14.3 MEQ/L (5-15); BLOOD UREA NITROGEN 12 mg/dL (9-20); CHLORIDE 104 mmol/L (98-107); Calcium 9.9 mg/dL (8.4-10.2); Carbon Dioxide 27 mmol/L (22-30); Creatinine 1 1.06 mg/dL (0.66-1.25); EST GLOMERULAR FILTRATION RATE 76.4 ML/MIN; ETHYL ALCOHOL < 10 mg/dL (0-10); Glucose 81 mg/dL (74-106); LIPASE 129 U/L (23-300); MAGNESIUM 2.4 mg/dL (1.6-2.3); Potassium 4.7 mmol/L (3.5-5.1); SGOT/AST 26 U/L (17-59); SGPT/ALT 23 U/L (0-50); SODIUM 140 mmol/L (135-145); Total Protein 7.8 g/dL (6.3-8.2)
[2023-12-26 02:05] LABS: INFLUENZA A NEGATIVE (NEGATIVE); INFLUENZA B NEGATIVE (NEGATIVE); RESPIRATORY SYNCTIAL VIRUS NEGATIVE (NEGATIVE); SARS-CoV-2 Xpert Express NEGATIVE (NEGATIVE)
[2023-12-26 02:22] VITALS: BP 128/77; RESP 26
[2023-12-26 02:33] LABS: Appearance Clear (Clear); Bacteria None Seen /HPF (None Seen); Bilirubin Negative (Negative); Blood Negative (Negative); Epithelial Cells None Seen /HPF (None Seen); Glucose, Urine 250 mg/dL (Negative); Hyaline Casts NONE SEEN /LPF (0-2); Ketones Negative (Negative); Leukocyte Esterase Negative (Negative); Nitrite Negative (Negative); Ph 6.5 (4.6-8.0); Protein,Urine Dip Negative (Negative); RBC 0-2 /HPF (0-5); Specific Gravity >=1.030 (1.005-1.030); WBC 0-2 /HPF (0-5)
[2023-12-26 02:44] LABS: Amphetamine,Urine POSITIVE (NEGATIVE); Barbiturate,Urine NEGATIVE (NEGATIVE); Benzodiazepine,Urine NEGATIVE (NEGATIVE); Cocaine,Urine NEGATIVE (NEGATIVE); Methadone,Urine NEGATIVE (NEGATIVE); Opiate,Urine NEGATIVE (NEGATIVE); PCP,Urine NEGATIVE (NEGATIVE); THC,Urine NEGATIVE (NEGATIVE)
--- NOTE | 2023-12-26 02:57 | XRAY ---
CLINICAL HISTORY: dyspnea COMPARISON: 10/01/2023 TECHNIQUE: Contiguous axial CT images of the chest angiography were acquired with contrast 80 cc Isovue 370. Coronal and sagittal reconstructions were obtained. One of the following dose reduction techniques were utilized for this exam: Automated exposure control, adjustment of the mA and/or kV according to patient size, use of iterative reconstruction. One of these 3D techniques was utilized: Maximum Intensity Pixel (MIP), 3D Reconstructed Images, Volume Rendered Images, Surface Shaded Rendering. FINDINGS: Normal main pulmonary artery and the left and right main pulmonary trunks. No detected pulmonary embolism. Redemonstration of the moderate to marked emphysematous changes at both upper lung lobes apical segments. Stable solid nodule with spiculated margins in the apical segment of the right upper lung lobe. Stable calcified 8.5 mm nodule at the anterior segment of the right upper lung lobe. Stable bilateral lower lung lobes fibrotic changes and fibrotic scar at the left upper lung lobe anterior segment. No newly developed lesions. No definite consolidative lesions. No free or encysted pleural effusion. Heart size is normal, and there is no pericardial effusion. Aortic atherosclerotic calcification. A few subcentimeter mediastinal lymph nodes are seen with a right hilar calcified lymph node. There is no definite mass lesion in the chest wall. No significant interval changes regarding the gallbladder stone and soft tissue density lesion related to the pancreatic tail with internal calcification and thickened left adrenal gland. Old healed fractures of left 4th, 5th, and 6th ribs. Thoracic vertebral spondylitic changes IMPRESSION: 1. No evidence of pulmonary embolism. 2. Stable bilateral apical segments of both upper lung lobes emphysematous changes. 3. No significant changes regarding the spiculated nodule at the apical segment of the right upper lung lobe and calcified nodule at the anterior segment of the right upper lung lobe. 4. Stable bilateral lower lung lobes fibrotic changes and fibrotic scar at the left upper lung lobe anterior segment. 5. Stable few subcentimeteric mediastinal lymph nodes and right hilar calcified lymph node. 6. No significant interval changes regarding the gallbladder stone and soft tissue density lesion related to the pancreatic tail with internal calcification and thickened left adrenal gland. 7. No newly developed lesions. Electronically Signed by: Gris Muller MD. (12/26/2023 02:52:35 EDT)
[2023-12-26 03:11] VITALS: O2SAT 96
[2023-12-26 03:16] VITALS: PULSE 75
== END 2023-12-26 03:19 | disposition home or self-care (01) ==
LOC: ED 00:36
DX: R07.9 Chest pain, unspecified (principal); R06.00 Dyspnea, unspecified; F15.90 Other stimulant use, unspecified, uncomplicated; R05.1 Acute cough; E78.5 Hyperlipidemia, unspecified; I10 Essential (primary) hypertension; Z79.899 Other long term (current) drug therapy; Z72.0 Tobacco use; Z59.819 Housing instability, housed unspecified; Z59.82 Transportation insecurity
CPT/HCPCS: 0241U; 36000; 36415; 71260; 80053; 80307; 81001; 82077; 82150; 82805; 83690; 83735; 84484; 85025; 87651; 93005; 99284

== ENCOUNTER 2024-05-10 11:34 | Observation (INO) | payer MEDICARE ==
--- NOTE | 2024-05-10 11:44 | ERPHSYRPT ---
- History of Present Illness Time Seen by Provider: 05/10/24 11:44 Historian: patient, EMS Exam Limitations: no limitations Physician History: This is a 68-year-old white male patient brought to the emergency department by the database analyst service secondary to chest pain. Patient is a resident at a residential and was brought to the emergency department because of complaints of chest pain. Patient has a history of coronary artery disease. Patient was found to be somewhat reynoso and ashen at the residential. He was found to have significantly elevated cyst to look blood pressure over 200 mmHg. Patient was given his blood pressure medication. Patient arrives to our emergency department with a systolic blood pressure in the 130s. His room air oxygen saturation is approximately 96%. He has central, substernal chest pain that radiates into the left side of his neck and left shoulder. Patient is not the best historian. Patient has a history of hyperlipidemia, hypertension and arrhythmia as well as COPD. Dr. Fuchs is the patient's health care facility administrator Timing/Duration: today Quality: aching, pressure Location: substernal, central Chest Pain Radiation: neck (Left side), arm (Left shoulder) Severity of Pain-Max: mild Severity of Pain-Current: mild Associated Symptoms: denies symptoms Prior Chest Pain/Cardiac Workup: cardiac cath, heart attack Nitro Today/Relief: no nitro taken today Aspirin Treatment Today: 81 mg x 4, provided by EMS Allergies/Adverse Reactions: Penicillins Allergy (Verified 05/10/24 12:03) Home Medications: Atorvastatin Calcium 80 mg PO DAILY 09/22/23 [History] Clopidogrel Bisulfate [Clopidogrel] 75 mg PO DAILY 05/10/24 [History] Ranolazine 500 MG [Ranexa 500 MG] 500 mg PO BID 05/10/24 [History] Rivaroxaban [Xarelto] 20 mg PO DAILY 05/10/24 [History] Hx Tetanus, Diphtheria Vaccination/Date Given: Yes Hx Influenza Vaccination/Date Given: No Hx Pneumococcal Vaccination/Date Given: No Travel Risk - International Travel Have you traveled outside of the country in past 3 weeks: No - Emerging Infectious Disease Are you exhibiting symptoms associated with any current EIDs: Yes Symptoms: Shortness of Breath - Review of Systems Constitutional: No Symptoms Eyes: No Symptoms Ears, Nose, & Throat: No Symptoms Respiratory: No Symptoms Cardiac: Chest Pain Abdominal/Gastrointestinal: No Symptoms Genitourinary Symptoms: No Symptoms Musculoskeletal: No Symptoms Skin: No Symptoms Neurological: No Symptoms Psychological: No Symptoms Endocrine: No Symptoms Hematologic/Lymphatic: No Symptoms Immunological/Allergic: No Symptoms All Other Systems: Reviewed and Negative - Past Medical History Pertinent Past Medical History: Yes Neurological History: Stroke ENT History: No Pertinent History Cardiac History: Arrhythmia, High Cholesterol, Hypertension Respiratory History: Asthma, COPD, Pneumonia Endocrine Medical History: No Pertinent History Musculoskeletal History: Arthritis, Fractures GI Medical History: No Pertinent History History: No Pertinent History Psycho-Social History: No Pertinent History Male Reproductive Disorders: No Pertinent History Other Medical History: pt is a poor historian, and unsure. Completed to best of ability. - Past Surgical History Past Surgical History: Yes Neuro Surgical History: No Pertinent History Cardiac: No Pertinent History Respiratory: No Pertinent History Gastrointestinal: No Pertinent History Genitourinary: No Pertinent History Musculoskeletal: No Pertinent History Male Surgical History: No Pertinent History Other Surgical History: SPLEEN REMOVED-several years ago Significant Family History: no pertinent family hx - Social History Smoking Status: Current some day smoker How long have you smoked: YRS Exposure to second hand smoke: Yes Drug Use: none Patient Lives Alone: Yes - Social Determinants of Health Will the patient participate in the screening: Yes Do you worry about a steady place to live?: Yes In the past 12 months,have you had to go without utilities?: No Transportation Issues: Yes Has anyone in your support network made you feel unsafe?: No Have you or anyone in your house had to go without enough: No - Nursing Vital Signs Nursing Vital Signs: Initial Vital Signs Temperature 97.8 F 05/10/24 11:36 Pulse Rate 84 05/10/24 11:36 Respiratory Rate 29 H 05/10/24 11:36 Blood Pressure 138/69 05/10/24 11:36 O2 Sat by Pulse Oximetry 99 05/10/24 11:36 Pain Scale Pain Intensity 9 - Physical Exam General Appearance: mild distress, alert, anxiety, thin Eye Exam: PERRL/EOMI, eyes nml inspection Ears, Nose, Throat Exam: normal ENT inspection, moist mucous membranes Neck Exam: normal inspection, non-tender, supple, full range of motion Respiratory Exam: normal breath sounds, chest tenderness, lungs clear, airway intact, No respiratory distress Cardiovascular Exam: regular rate/rhythm, normal heart sounds, normal peripheral pulses Gastrointestinal/Abdomen Exam: soft, normal bowel sounds, No tenderness Rectal Exam: not done Back Exam: normal inspection, normal range of motion, No CVA tenderness, No vertebral tenderness Extremity Exam: normal inspection, normal range of motion, pelvis stable Neurologic Exam: alert, oriented x 3, cooperative, appliance technician II-XII 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, sensation nml Skin Exam: normal color, warm, dry Lymphatic Exam: No adenopathy SpO2 Interpretation: normal O2 Delivery: Room Air - Course Nursing assessment & vital signs reviewed: Yes EKG Interpreted by Me: RATE (74), Sinus Rhythm, NORMAL AXIS, NORMAL INTERVALS, NORMAL QRS, NORMAL ST-T, Other (Patient has a QTc of 45. There is mention of ventricular bigeminy on the twelve-lead EKG. There appears to be PVCs present. No acute ischemia on this twelve-lead EKG. QTc is 485) Ordered Tests: Active Orders 24 hr Category Date Time Status Financial Planning Assistant STAT Care 05/10/24 11:45 Active EKG-ER Only STAT Care 05/10/24 11:44 Active IV Insertion STAT Care 05/10/24 11:44 Active Pulse Oximetry (ED) STAT Care 05/10/24 11:44 Active CHEST 1 VIEW (PORTABLE) Stat Exams 05/10/24 11:45 Completed CBC W DIFF Stat Lab 05/10/24 12:04 Completed CMP Stat Lab 05/10/24 12:04 Completed MAGNESIUM Stat Lab 05/10/24 12:04 Completed NT PRO BNPII Stat Lab 05/10/24 12:04 Completed PROTIME WITH INR Stat Lab 05/10/24 12:04 Completed TROPONIN Q4H Lab 05/10/24 12:04 Completed TROPONIN Q4H Lab 05/10/24 15:45 Ordered TROPONIN Q4H Lab 05/10/24 19:45 Ordered Urine Triage Profile Stat Lab 05/10/24 14:14 Ordered Transfer Order Routine Transfer 05/10/24 Ordered Medication Summary Discontinued Medications Generic Name Dose Route Start Last Admin Trade Name Freq PRN Reason Stop Dose Admin Aspirin 324 mg 05/10/24 11:44 05/10/24 11:54 Aspirin 81 Mg Tab.Chew PO 05/10/24 11:45 Not Given STAT ONE Aspirin Confirm 05/10/24 11:50 Aspirin 81 Mg Tab.Chew Administered 05/10/24 11:51 Dose 324 mg .ROUTE .STK-MED ONE Nitroglycerin 1 gm 05/10/24 12:53 05/10/24 13:08 Nitroglycerin 1 Gm Packet TOP 05/10/24 12:54 1 gm STAT ONE Administration Nitroglycerin Confirm 05/10/24 13:06 Nitroglycerin 1 Gm Packet Administered 05/10/24 13:07 Dose 1 gm .ROUTE .STK-MED ONE Lab/Rad Data: Laboratory Result Diagrams 05/10/24 12:04 05/10/24 12:04 Laboratory Results 05/10/24 05/10/24 05/10/24 Range/Units 12:04 12:04 12:04 WBC (4.23-9.07) x10^3/uL RBC (4.63-6.08) x10^6/uL Hgb (13.7-17.5) g/dL Hct (40.1-51.0) % MCV (79.0-92.2) fL MCH (25.7-32.2) pg MCHC (32.3-36.5) g/dL RDW (11.6-14.4) % Plt Count (163-337) x10^3/uL MPV (9.4-12.4) fL Gran % (34.0-67.9) % Immature Gran % (Auto) (0.001-0.429) % Nucleat RBC Rel Count (0.00-0.2) % Eos # (Auto) (0.04-0.54) x10^3/uL Immature Gran # (Auto) (0.001-0.031) x10^3u/L Absolute Lymphs (auto) (1.32-3.57) x10^3/uL Absolute Monos (auto) (0.30-0.82) x10^3/uL Absolute Nucleated RBC (0.00-0.012) x10^3u/L Lymphocytes % (21.8-53.1) % Monocytes % (5.3-12.2) % Eosinophils % (0.8-7.0) % Basophils % (0.2-1.2) % Absolute Granulocytes (1.78-5.38) x10^3/uL Basophils # (0.01-0.08) x10^3/uL PT 14.0 H (9.4-12.5) SECONDS INR 1.31 (0.8-3.0) Sodium 139 (135-145) mmol/L Potassium 4.2 (3.5-5.1) mmol/L Chloride 103 (98-107) mmol/L Carbon Dioxide 25 (22-30) mmol/L Anion Gap 15.4 H (5-15) MEQ/L BUN 15 (9-20) mg/dL Creatinine 1.13 (0.66-1.25) mg/dL Estimated GFR 70.8 ML/MIN Glucose 126 H (74-106) mg/dL Calcium 8.9 (8.4-10.2) mg/dL Magnesium 1.9 (1.6-2.3) mg/dL Total Bilirubin 1.10 (0.2-1.3) mg/dL AST 29 (17-59) U/L ALT 22 (0-50) U/L Alkaline Phosphatase 79 (38-126) U/L Troponin I < 0.012 (0.000-0.033) ng/mL NT-Pro-B Natriuret Pep 304 (<300) pg/mL Serum Total Protein 7.0 (6.3-8.2) g/dL Albumin 4.2 (3.5-5.0) g/dL 05/10/24 Range/Units 12:04 WBC 11.6 H (4.23-9.07) x10^3/uL RBC 5.07 (4.63-6.08) x10^6/uL Hgb 15.7 (13.7-17.5) g/dL Hct 45.8 (40.1-51.0) % MCV 90.3 (79.0-92.2) fL MCH 31.0 (25.7-32.2) pg MCHC 34.3 (32.3-36.5) g/dL RDW 13.2 (11.6-14.4) % Plt Count 445 H (163-337) x10^3/uL MPV 10.0 (9.4-12.4) fL Gran % 76.6 H (34.0-67.9) % Immature Gran % (Auto) 0.3 (0.001-0.429) % Nucleat RBC Rel Count 0.0 (0.00-0.2) % Eos # (Auto) 0.06 (0.04-0.54) x10^3/uL Immature Gran # (Auto) 0.04 H (0.001-0.031) x10^3u/L Absolute Lymphs (auto) 1.56 (1.32-3.57) x10^3/uL Absolute Monos (auto) 0.95 H (0.30-0.82) x10^3/uL Absolute Nucleated RBC 0.00 (0.00-0.012) x10^3u/L Lymphocytes % 13.5 L (21.8-53.1) % Monocytes % 8.2 (5.3-12.2) % Eosinophils % 0.5 L (0.8-7.0) % Basophils % 0.9 (0.2-1.2) % Absolute Granulocytes 8.87 H (1.78-5.38) x10^3/uL Basophils # 0.10 H (0.01-0.08) x10^3/uL PT (9.4-12.5) SECONDS INR (0.8-3.0) Sodium (135-145) mmol/L Potassium (3.5-5.1) mmol/L Chloride (98-107) mmol/L Carbon Dioxide (22-30) mmol/L Anion Gap (5-15) MEQ/L BUN (9-20) mg/dL Creatinine (0.66-1.25) mg/dL Estimated GFR ML/MIN Glucose (74-106) mg/dL Calcium (8.4-10.2) mg/dL Magnesium (1.6-2.3) mg/dL Total Bilirubin (0.2-1.3) mg/dL AST (17-59) U/L ALT (0-50) U/L Alkaline Phosphatase (38-126) U/L Troponin I (0.000-0.033) ng/mL NT-Pro-B Natriuret Pep (<300) pg/mL Serum Total Protein (6.3-8.2) g/dL Albumin (3.5-5.0) g/dL - Progress Progress: re-examined Air Movement: good Progress Note: 05/10/24 12:05 My medical decision making and the assignment of at least moderate complexity to this patient's medical issue today is based on review of the patient's past medical history, review of the patient's medication list, reviewed patient drug allergy list, history present illness and physical findings on examination. The workup in this patient includes placement of intravenous line, CBC, CMP, tropon in level, twelve-lead EKG, magnesium level, chest x-ray, PT/INR. Differential diagnosis includes but is not limited to acute myocardial infarction, electrolyte abnormalities, arrhythmia 05/10/24 12:45 Apparently, the patient is on Xarelto and has a history of atrial fibrillation. Patient is a poor historian. It appears as though the patient did receive a sublingual nitroglycerin at the residential and then a second nitroglycerin sublingually by the paramedics en route to our facility 05/10/24 12:49 I repeated and interpreted the twelve-lead EKG dated 05/10/2024 at 1230. The patient's heart rate is 81 bpm it is atrial fibrillation. There is PVCs present. There is borderline left axis deviation abnormal inferior Q waves and prolonged QT interval. QTc is 525. 05/10/24 13:43 Spoke with telemetry health care facility administrator Dr. Kilo Kamara. He reviewed both twelve- lead EKGs that I sent to him. He feels this patient can stay here at our facility and that his chest pain might be related to the fact he had hypertension with a systolic blood pressure greater than 200 mmHg. We are awaiting the patient's urine drug triage to see if somehow the patient has used methamphetamines which he has used in the past. 05/10/24 14:[address] Dubon. He is the telehospitalist on-call at this time. I re viewed the patient history, presenting complaint, workup results and the discussion I had with the health care facility administrator, Dr. Kilo Kamara. He accepts this patient to be placed in observation. Blood Culture(s) Obtained: No Antibiotics given: No Discussed with Dr.: Torrez Counseled pt/family regarding: lab results, diagnosis Medical Desision Making - Diagnostic Testing Diagnostic test were ordered, analyzed, and reviewed by me: Yes Radiological Interpretation: Reviewed by me, Teleradiologist Report - Risk of complications The pt has a high risk of morbidity or mortality based on: Decision regarding hospitilization or escalation of hosp level of care - Departure Departure Disposition: Observation Clinical Impression: Chest pain Condition: Fair Critical Care Time: No Referrals: STEWART KENDALL MD [Primary Care Provider] - Follow up/PCP as directed
[2024-05-10] MEDS ORDERED: BABY ASPIRIN 81 MG CHEW ONE (11:50)
[2024-05-10] MEDS: BABY ASPIRIN 81 MG CHEW PO ONE (11:54)
[2024-05-10 12:02] LABS: Absolute Neutrophil Ct (ANC) 8.87 x10^3/uL (1.78-5.38); BASOPHIL % 0.9 % (0.2-1.2); Eosinophil % 0.5 % (0.8-7.0); Eosinophil (Absolute #) 0.06 x10^3/uL (0.04-0.54); Hematocrit 45.8 % (40.1-51.0); Hemoglobin 15.7 g/dL (13.7-17.5); IMMATURE GRAN # 0.04 x10^3u/L (0.001-0.031); IMMATURE GRAN % 0.3 % (0.001-0.429); Lymphocyte (Absolute #) 1.56 x10^3/uL (1.32-3.57); Lymphocytes % 13.5 % (21.8-53.1); Mean Cell Volume 90.3 fL (79.0-92.2); Mean Corpuscular Hgb Concent. 34.3 g/dL (32.3-36.5); Monocyte (Absolute #) 0.95 x10^3/uL (0.30-0.82); Monocytes % 8.2 % (5.3-12.2); Neutrophil % 76.6 % (34.0-67.9); Platelet Count 445 x10^3/uL (163-337); Red Blood Count 5.07 x10^6/uL (4.63-6.08); Red Cell Distribution Width 13.2 % (11.6-14.4); White Blood Count 11.6 x10^3/uL (4.23-9.07)
[2024-05-10 12:22] LABS: INR 1.31 (0.8-3.0)
--- NOTE | 2024-05-10 12:24 | XRAY ---
Indication: Chest pain. Comparison: October 01, 2023 Portable apical lordotic chest unchanged again hyperinflated and clear with incidental right lung calcified granuloma and left hemidiaphragm elevation. Heart not enlarged again with tortuous descending aorta. Bony thorax intact again with osteopenia and mild degenerative changes. No new/acute abnormalities. Impression: Continued nonacute hyperinflated chest with chronic features.
[2024-05-10 12:28] LABS: MAGNESIUM 1.9 mg/dL (1.6-2.3); TROPONIN < 0.012 ng/mL (0.000-0.033)
[2024-05-10 12:32] LABS: ALBUMIN 4.2 g/dL (3.5-5.0); ANION GAP 15.4 MEQ/L (5-15); BILIRUBIN,TOTAL 1.1 mg/dL (0.2-1.3); Calcium 8.9 mg/dL (8.4-10.2); Creatinine 1 1.13 mg/dL (0.66-1.25); EST GLOMERULAR FILTRATION RATE 70.8 ML/MIN; Potassium 4.2 mmol/L (3.5-5.1)
[2024-05-10] MEDS ORDERED: NITRO-BID 2% UD PACKETS ONE (13:06)
[2024-05-10] MEDS: NITRO-BID 2% UD PACKETS TOP ONE (13:08)
[2024-05-10 14:51] LABS: Amphetamine,Urine NEGATIVE (NEGATIVE); Barbiturate,Urine NEGATIVE (NEGATIVE); Benzodiazepine,Urine NEGATIVE (NEGATIVE); Cocaine,Urine NEGATIVE (NEGATIVE); Methadone,Urine NEGATIVE (NEGATIVE); Opiate,Urine NEGATIVE (NEGATIVE); PCP,Urine NEGATIVE (NEGATIVE); THC,Urine NEGATIVE (NEGATIVE)
--- NOTE | 2024-05-10 15:19 | PCM.HP ---
History of Present Illness - Chief Complaint Chief Complaint: Chest pain Date: 05/10/24 History of Present Illness: This is a 68-year-old male inmate who was brought to the emergency department by paramedics due to complaints of chest pain. At the assisted, he was noted to be somewhat reynoso and ashen, with a significantly elevated systolic blood pressure exceeding 200 mmHg. He was given his blood pressure medication, and upon arrival at the emergency department, his systolic blood pressure had decreased to the 130s. His oxygen saturation on room air was approximately 96%. The patient describes central, substernal chest pain that radiates to the left side of his neck and left shoulder. He is not the best historian. His past medical history includes coronary artery disease, hypertension, hyperlipidemia, arrhythmia, and chronic obstructive pulmonary disease (COPD). Dr. Fuchs is the patients director it project. IP he started having episodes of V-Tach. Pt moved to ICU and stat cardiology consult placed. CXR negative for acute concern. Trop x1 negative. He c/o nausea, SOB, and LUQ & RUQ abd. pain. UDS negative. Flu/COVID/RSV pending Pt on baseline 2lNC O2 at 96%. Consider tx to higher level of care. - Review of Systems Constitutional: No Fever, No Chills Eyes: No Symptoms Ears, Nose, & Throat: No Symptoms Respiratory: Short Of Breath, No Cough Cardiac: Chest Pain, Other (arrythmia), No Edema, No Syncope Abdominal/Gastrointestinal: Abdominal Pain, Nausea, No Vomiting, No Diarrhea Genitourinary Symptoms: No Dysuria Musculoskeletal: No Back Pain, No Neck Pain Skin: No Rash Neurological: No Dizziness, No Focal Weakness, No Sensory Changes Psychological: No Symptoms Endocrine: No Symptoms Hematologic/Lymphatic: No Symptoms Immunological/Allergic: No Symptoms Medications & Allergies Home Medications: Home Medication List Atorvastatin Calcium 80 mg PO DAILY 09/22/23 [History Confirmed 05/10/24] Clopidogrel Bisulfate [Clopidogrel] 75 mg PO DAILY 05/10/24 [History Confirmed 05/10/24] Ranolazine 500 MG [Ranexa 500 MG] 500 mg PO BID 05/10/24 [History Confirmed 05/10/24] Rivaroxaban [Xarelto] 20 mg PO DAILY 05/10/24 [History Confirmed 05/10/24] Allergies/Adverse Reactions: Allergies Allergy/AdvReac Type Severity Reaction Status Date / Time Penicillins Allergy Verified 05/10/24 12:03 - Past Medical History Past Medical History: Yes Neurological History: Stroke ENT History: No Pertinent History Cardiac History: Arrhythmia, High Cholesterol, Hypertension Respiratory History: Asthma, COPD, Pneumonia Endocrine Medical History: No Pertinent History Musculoskelatal History: Arthritis, Fractures GI Medical History: No Pertinent History History: No Pertinent History Pyscho-Social History: No Pertinent History Male Reproductive Disorders: No Pertinent History Comment: pt is a poor historian, and unsure. Completed to best of ability. - Past Surgical History Past Surgical History: Yes Neuro Surgical History: No Pertinent History Cardiac History: No Pertinent History Respiratory Surgery: No Pertinent History GI Surgical History: No Pertinent History Genitourinary Surgical Hx: No Pertinent History Musculskeletal Surgical Hx: No Pertinent History Male Surgical History: No Pertinent History Other Surgical History: SPLEEN REMOVED-several years ago Significant Family History: no pertinent family hx - Social History Smoking Status: Current some day smoker How long have you smoked: YRS Exposure to second hand smoke: Yes Alcohol: None Drug Use: none - Social Determinants of Health Will the patient participate in the screening: Yes Do you worry about a steady place to live?: Yes Do you have any problems with any of the following?: No known problems In the past 12 months,have you had to go without utilities?: No Have you or anyone in your house had to go without enough: No Transportation Issues: Yes Has anyone in your support network made you feel unsafe?: No Does the patient want assistance with any of the above?: No Comment: pt states sometimes he stays with his sister - Physical Exam Vital Signs: Vital Signs - 24 hr Temp Pulse Resp BP BP Pulse Ox 05/10/24 14:10 75 17 99 05/10/24 14:03 77 18 100 05/10/24 13:31 76 19 161/85 100 05/10/24 13:30 70 14 100 05/10/24 13:20 13 100 05/10/24 13:10 70 24 100 05/10/24 12:02 74 18 162/59 98 05/10/24 12:01 73 16 05/10/24 11:52 99 05/10/24 11:38 85 29 H 138/69 100 05/10/24 11:36 97.8 F 84 29 H 138/69 99 General Appearance: no apparent distress, alert Neurologic Exam: alert, oriented x 3, cooperative, normal mood/affect, nml cerebellar function, nml station & gait, sensation nml, No motor deficits Eye Exam: PERRL/EOMI, eyes nml inspection Ears, Nose, Throat Exam: normal ENT inspection, TMs normal, pharynx normal, moist mucous membranes Neck Exam: normal inspection, non-tender, supple, full range of motion Respiratory Exam: normal breath sounds, lungs clear, No respiratory distress Cardiovascular Exam: normal peripheral pulses, irregular Gastrointestinal/Abdomen Exam: soft, normal bowel sounds, No tenderness, No mass Back Exam: normal inspection, normal range of motion, No CVA tenderness, No vertebral tenderness Extremity Exam: normal inspection, normal range of motion, pelvis stable Skin Exam: normal color, warm, dry, No rash Lymphatic Exam: No adenopathy Results - Labs Lab/Micro Results: Lab Results-Last 24 Hours 05/10/24 05/10/24 05/10/24 Range/Units 12:04 12:04 12:04 WBC 11.6 H (4.23-9.07) x10^3/uL RBC 5.07 (4.63-6.08) x10^6/uL Hgb 15.7 (13.7-17.5) g/dL Hct 45.8 (40.1-51.0) % MCV 90.3 (79.0-92.2) fL MCH 31.0 (25.7-32.2) pg MCHC 34.3 (32.3-36.5) g/dL RDW 13.2 (11.6-14.4) % Plt Count 445 H (163-337) x10^3/uL MPV 10.0 (9.4-12.4) fL Gran % 76.6 H (34.0-67.9) % Immature Gran % (Auto) 0.3 (0.001-0.429) % Nucleat RBC Rel Count 0.0 (0.00-0.2) % Eos # (Auto) 0.06 (0.04-0.54) x10^3/uL Immature Gran # (Auto) 0.04 H (0.001-0.031) x10^3u/L Absolute Lymphs (auto) 1.56 (1.32-3.57) x10^3/uL Absolute Monos (auto) 0.95 H (0.30-0.82) x10^3/uL Absolute Nucleated RBC 0.00 (0.00-0.012) x10^3u/L Lymphocytes % 13.5 L (21.8-53.1) % Monocytes % 8.2 (5.3-12.2) % Eosinophils % 0.5 L (0.8-7.0) % Basophils % 0.9 (0.2-1.2) % Absolute Granulocytes 8.87 H (1.78-5.38) x10^3/uL Basophils # 0.10 H (0.01-0.08) x10^3/uL PT 14.0 H (9.4-12.5) SECONDS INR 1.31 (0.8-3.0) Sodium 139 (135-145) mmol/L Potassium 4.2 (3.5-5.1) mmol/L Chloride 103 (98-107) mmol/L Carbon Dioxide 25 (22-30) mmol/L Anion Gap 15.4 H (5-15) MEQ/L BUN 15 (9-20) mg/dL Creatinine 1.13 (0.66-1.25) mg/dL Estimated GFR 70.8 ML/MIN Glucose 126 H (74-106) mg/dL Calcium 8.9 (8.4-10.2) mg/dL Magnesium (1.6-2.3) mg/dL Total Bilirubin 1.10 (0.2-1.3) mg/dL AST 29 (17-59) U/L ALT 22 (0-50) U/L Alkaline Phosphatase 79 (38-126) U/L Troponin I (0.000-0.033) ng/mL NT-Pro-B Natriuret Pep 304 (<300) pg/mL Serum Total Protein 7.0 (6.3-8.2) g/dL Albumin 4.2 (3.5-5.0) g/dL Urine Opiates Level (NEGATIVE) Ur Methadone (NEGATIVE) Urine Barbiturates (NEGATIVE) Ur Phencyclidine (PCP) (NEGATIVE) Urine Amphetamine (NEGATIVE) U Benzodiazepine Level (NEGATIVE) Urine Cocaine (NEGATIVE) Urine Marijuana (THC) (NEGATIVE) 05/10/24 05/10/24 Range/Units 12:04 14:14 WBC (4.23-9.07) x10^3/uL RBC (4.63-6.08) x10^6/uL Hgb (13.7-17.5) g/dL Hct (40.1-51.0) % MCV (79.0-92.2) fL MCH (25.7-32.2) pg MCHC (32.3-36.5) g/dL RDW (11.6-14.4) % Plt Count (163-337) x10^3/uL MPV (9.4-12.4) fL Gran % (34.0-67.9) % Immature Gran % (Auto) (0.001-0.429) % Nucleat RBC Rel Count (0.00-0.2) % Eos # (Auto) (0.04-0.54) x10^3/uL Immature Gran # (Auto) (0.001-0.031) x10^3u/L Absolute Lymphs (auto) (1.32-3.57) x10^3/uL Absolute Monos (auto) (0.30-0.82) x10^3/uL Absolute Nucleated RBC (0.00-0.012) x10^3u/L Lymphocytes % (21.8-53.1) % Monocytes % (5.3-12.2) % Eosinophils % (0.8-7.0) % Basophils % (0.2-1.2) % Absolute Granulocytes (1.78-5.38) x10^3/uL Basophils # (0.01-0.08) x10^3/uL PT (9.4-12.5) SECONDS INR (0.8-3.0) Sodium (135-145) mmol/L Potassium (3.5-5.1) mmol/L Chloride (98-107) mmol/L Carbon Dioxide (22-30) mmol/L Anion Gap (5-15) MEQ/L BUN (9-20) mg/dL Creatinine (0.66-1.25) mg/dL Estimated GFR ML/MIN Glucose (74-106) mg/dL Calcium (8.4-10.2) mg/dL Magnesium 1.9 (1.6-2.3) mg/dL Total Bilirubin (0.2-1.3) mg/dL AST (17-59) U/L ALT (0-50) U/L Alkaline Phosphatase (38-126) U/L Troponin I < 0.012 (0.000-0.033) ng/mL NT-Pro-B Natriuret Pep (<300) pg/mL Serum Total Protein (6.3-8.2) g/dL Albumin (3.5-5.0) g/dL Urine Opiates Level NEGATIVE (NEGATIVE) Ur Methadone NEGATIVE (NEGATIVE) Urine Barbiturates NEGATIVE (NEGATIVE) Ur Phencyclidine (PCP) NEGATIVE (NEGATIVE) Urine Amphetamine NEGATIVE (NEGATIVE) U Benzodiazepine Level NEGATIVE (NEGATIVE) Urine Cocaine NEGATIVE (NEGATIVE) Urine Marijuana (THC) NEGATIVE (NEGATIVE) - Radiology Impressions Radiology Exams & Impressions: Radiology Procedures Category Date Time Status CHEST 1 VIEW (PORTABLE) Stat Exams 05/10/24 11:45 Completed - Other Procedures and Tests Respiratory Therapy 05/10/24 14:52 EKG REPEAT IN AM Respiratory Therapy Consult ONCE Assessment/Plan (1) Ventricular tachycardia Current Visit: Yes Status: Acute Assessment & Plan: - stat cardiology consult - ICU tele - EKG Code(s): I47.20 - VENTRICULAR TACHYCARDIA, UNSPECIFIED (2) Leukocytosis Current Visit: Yes Status: Acute Assessment & Plan: - WBC 11.6 - Flu/COVID/RSV pending - CXR negative for acute concern - CBC, CMP reviewed - UA pending Code(s): D72.829 - ELEVATED WHITE BLOOD CELL COUNT, UNSPECIFIED (3) Chest pain Current Visit: Yes Status: Acute Assessment & Plan: - EKG - trend trops - Trop x1 negative - ICU tele Code(s): R07.9 - CHEST PAIN, UNSPECIFIED (4) COPD (chronic obstructive pulmonary disease) Current Visit: No Status: Acute Assessment & Plan: - On baseline O2 at 2LNC- 96% - CXR reviewed (5) Hypertension Current Visit: No Status: Chronic Qualifiers: Hypertension type: unspecified Qualified Code(s): I10 - Essential (primary) hypertension Assessment & Plan: - BP stable - Continue home meds VTE: PLavix, Xarelto Next fo KIN: Sibling, Izzy D/C plan: 1-2 days Code status: Full Code(s): I10 - ESSENTIAL (PRIMARY) HYPERTENSION Telemedicine Encounter - Telemedicine Encounter Telemedicine Encounter: "The entirety of this encounter was performed via Telemedicine" This visit was performed using real-time audio and video connection between my location and thepatients locationwith the assistance of a surrogateat the patients location. Written or verbal consent was obtained from the patient/ guardian to perform this visit usingsynchronoustelemedicine technology. Any patient questions regarding the telemedicine interaction were answered.
[2024-05-10 16:07] LABS: INFLUENZA A NEGATIVE (NEGATIVE); INFLUENZA B NEGATIVE (NEGATIVE); RESPIRATORY SYNCTIAL VIRUS NEGATIVE (NEGATIVE); SARS-CoV-2 Xpert Express NEGATIVE (NEGATIVE)
[2024-05-10] MEDS: Sodium Chloride 0.9% 1000 ML 1,000 ML IV SCH (17:12)
[2024-05-10] MEDS ORDERED: VENTOLIN COMMON CANISTER IH PRN (17:38)
--- NOTE | 2024-05-10 18:16 | PCM.CONS ---
History of Present Illness - Date of Consult Date of Encounter: 05/10/24 Consulting Belt Worker: SMITA ANTONIO MD Requesting Provider: Attending Provider: MALKA TOMAS MD Primary Care Provider: PCP: STEWART KENDALL MD - Consult Narrative Reason for Consult: ectopy HPI: Patient is a 68M w/ PMHx of CAD s/p PCI, afib, HTN,HL, COPD, frequent ectopy who presents for evaluation of chest pain. The patient is not a reliable historian but reports a constant squeezing chest pain for the past week. It is constant/unrelenting and nothing seems to make it better or worse. He reports associated SOB at times but is vague on its description. Pain is 9/10. He also reports numbness in his left fingers for the past month. 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 He follows with Dr. Fuchs (cardiology). He has been admitted multiple times for similar complaints. UDS is negative but at times he is admitted with meth use. cc:: The requesting physician will be sent a copy of the consult. Review of Systems - Review of Systems All systems: as per HPI - Past Medical History Past Medical History: Yes Neurological History: Stroke ENT History: No Pertinent History Cardiac History: Arrhythmia, High Cholesterol, Hypertension Respiratory History: Asthma, COPD, Pneumonia Endocrine Medical History: No Pertinent History Musculoskelatal History: Arthritis, Fractures GI Medical History: No Pertinent History History: No Pertinent History Pyscho-Social History: No Pertinent History Male Reproductive Disorders: No Pertinent History Comment: pt is a poor historian, and unsure. Completed to best of ability. - Past Surgical History Past Surgical History: Yes Neuro Surgical History: No Pertinent History Cardiac History: No Pertinent History Respiratory Surgery: No Pertinent History GI Surgical History: No Pertinent History Genitourinary Surgical Hx: No Pertinent History Musculskeletal Surgical Hx: No Pertinent History Male Surgical History: No Pertinent History Other Surgical History: SPLEEN REMOVED-several years ago Significant Family History: no pertinent family hx - Social History Smoking Status: Current some day smoker How long have you smoked: YRS Exposure to second hand smoke: Yes Alcohol: None Drug Use: none - Social Determinants of Health Will the patient participate in the screening: Yes Do you worry about a steady place to live?: Yes Do you have any problems with any of the following?: No known problems In the past 12 months,have you had to go without utilities?: No Have you or anyone in your house had to go without enough: No Transportation Issues: Yes Has anyone in your support network made you feel unsafe?: No Does the patient want assistance with any of the above?: No Comment: pt states sometimes he stays with his sister Medications & Allergies Home Medications: Home Medication List Atorvastatin Calcium 80 mg PO DAILY 09/22/23 [History Confirmed 05/10/24] Clopidogrel Bisulfate [Clopidogrel] 75 mg PO DAILY 05/10/24 [History Confirmed 05/10/24] Ranolazine 500 MG [Ranexa 500 MG] 500 mg PO BID 05/10/24 [History Confirmed 05/10/24] Rivaroxaban [Xarelto] 20 mg PO QHS 05/10/24 [History Confirmed 05/10/24] Allergies/Adverse Reactions: Allergies Allergy/AdvReac Type Severity Reaction Status Date / Time Penicillins Allergy Verified 05/10/24 12:03 Exam - Vitals Vital Signs: Vital Signs - 24 hr Temp Pulse Resp BP BP Pulse Ox 05/10/24 17:32 96 05/10/24 17:01 97.7 F 76 20 123/70 96 05/10/24 16:46 76 19 117/66 93 L 05/10/24 16:45 82 16 05/10/24 16:40 76 24 95 05/10/24 16:30 97.7 F 79 17 95 05/10/24 16:20 73 23 98 05/10/24 16:10 74 24 97 05/10/24 16:05 74 20 97 05/10/24 16:01 76 23 96 05/10/24 15:33 97.9 F 71 28 H 108/67 98 05/10/24 15:31 73 20 96 05/10/24 15:30 74 23 108/57 96 05/10/24 15:23 74 23 87 L 05/10/24 15:10 70 27 H 05/10/24 15:00 69 15 05/10/24 14:58 73 16 05/10/24 14:55 97.9 F 68 22 128/71 96 05/10/24 14:52 98 05/10/24 14:20 73 24 100 05/10/24 14:10 75 17 99 05/10/24 14:03 77 18 100 05/10/24 13:31 76 19 161/85 100 05/10/24 13:30 70 14 100 05/10/24 13:20 13 100 05/10/24 13:10 70 24 100 05/10/24 12:02 74 18 162/59 98 05/10/24 12:01 73 16 05/10/24 11:52 99 05/10/24 11:38 85 29 H 138/69 100 05/10/24 11:36 97.8 F 84 29 H 138/69 99 Oxygen-Last 24 hours Oxygen Flowrate (L/min)-RT 2 General:: alert and oriented x 4, no acute distress HEENT: EOMI Cardiovascular Exam: regular rate/rhythm, other (+frequent ectopy) Respiratory Exam: normal breath sounds SpO2: 96 Gastrointestinal/Abdomen Exam: soft, normal bowel sounds Extremity Exam: normal inspection, normal range of motion, other (no edema) Neurologic: invoice clerk II-XII grossly intact, other (left fingers are numb) Results Vital Signs: Vital Signs - 24 hr Temp Pulse Resp BP BP Pulse Ox 05/10/24 17:32 96 05/10/24 17:01 97.7 F 76 20 123/70 96 05/10/24 16:46 76 19 117/66 93 L 05/10/24 16:45 82 16 05/10/24 16:40 76 24 95 05/10/24 16:30 97.7 F 79 17 95 05/10/24 16:20 73 23 98 05/10/24 16:10 74 24 97 05/10/24 16:05 74 20 97 05/10/24 16:01 76 23 96 05/10/24 15:33 97.9 F 71 28 H 108/67 98 05/10/24 15:31 73 20 96 05/10/24 15:30 74 23 108/57 96 05/10/24 15:23 74 23 87 L 05/10/24 15:10 70 27 H 05/10/24 15:00 69 15 05/10/24 14:58 73 16 05/10/24 14:55 97.9 F 68 22 128/71 96 05/10/24 14:52 98 05/10/24 14:20 73 24 100 05/10/24 14:10 75 17 99 05/10/24 14:03 77 18 100 05/10/24 13:31 76 19 161/85 100 05/10/24 13:30 70 14 100 05/10/24 13:20 13 100 05/10/24 13:10 70 24 100 05/10/24 12:02 74 18 162/59 98 05/10/24 12:01 73 16 05/10/24 11:52 99 05/10/24 11:38 85 29 H 138/69 100 05/10/24 11:36 97.8 F 84 29 H 138/69 99 Oxygen-Last 24 hours Oxygen Flowrate (L/min)-RT 2 Pain Assessment - Last Documented Pain Intensity 8 Intake and Output: Intake & Output 05/08/24 05/09/24 05/10/24 05/11/24 11:59 11:59 11:59 11:59 Weight 83.915 kg 83.915 kg LAB: I have reviewed the Labs in [facility]. Radiology Exams: Radiology Procedures Category Date Time Status CHEST 1 VIEW (PORTABLE) Stat Exams 05/10/24 11:45 Completed - ECHO Echo: report reviewed by me (1. Normal LV size. 2. Mildly reduced left ventricular function. 3. Left ventricular ejection fraction estimated by 2D at 40-45 percent. 4. Resting regional wall motion abnormalities of the septum. 5. Normal right ventricular size and function. 6. There is no significant pericardial effusion) Assessment & Plan (1) Chest pain Current Visit: Yes Status: Acute Assessment & Plan: Patient's chest pain is not consistent with ACS. Days of chest pain with negative biomarkers rules out ND. He reports undergoing PCI about 6 months ago but can provide no further details. Cont cardioprotective medical regimen. Will add metoprolol to his regimen. 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 He does not appear to be having symptoms or hemodynamic instability from this. Apparently this is a longstanding issue for him. Will start metoprolol to hopefully suppress some of this ectopy. This can be titrated up as tolerated. I presume this was avoided previously given meth history but given his UDS is clear, risk/benefit would favor suppresion in my opinion. Regardless, he appears to have a significant burden of PVCs and therefore would refer to EP as an outpatient for consideration of ablation. Code(s): I49.8 - OTHER SPECIFIED CARDIAC ARRHYTHMIAS (3) Hypertension Current Visit: Yes Status: Acute Assessment & Plan: Patient presented with markedly elevated BP; titrate anti-HTNs as tolerated. Suspect part of his presentation was due to SBP > 200. Code(s): I10 - ESSENTIAL (PRIMARY) HYPERTENSION - Encounter Encounter: "The entirety of this encounter was performed via Telemedicine using audio and visual "
[2024-05-10] MEDS: TYLENOL 325 MG PO PRN (20:26)
[2024-05-10] MEDS: Sodium Chloride 0.9% 250 ML 250 ML IV SCH ×2 (21:56→23:25)
[2024-05-10] MEDS ORDERED: Lopressor 50 MG PO SCH (22:00)
[2024-05-10] MEDS: Ranexa 500 MG PO SCH (22:26)
[2024-05-10] MEDS: Lopressor 25MG Tab PO SCH (22:26)
[2024-05-11 01:12] LABS: Appearance Clear (Clear); Bacteria None Seen /HPF (None Seen); Bilirubin Negative (Negative); Blood Negative (Negative); Epithelial Cells None Seen /HPF (None Seen); Glucose, Urine 500 mg/dL (Negative); Hyaline Casts NONE SEEN /LPF (0-2); Ketones Trace (Negative); Leukocyte Esterase Negative (Negative); Nitrite Negative (Negative); Ph 6.5 (4.6-8.0); Protein,Urine Dip Trace (Negative); RBC 0-2 /HPF (0-5); Specific Gravity 1.025 (1.005-1.030); WBC 0-2 /HPF (0-5)
[2024-05-11 05:03] LABS: Absolute Neutrophil Ct (ANC) 5.72 x10^3/uL (1.78-5.38); BASOPHIL % 0.9 % (0.2-1.2); Basophil (Absolute #) 0.08 x10^3/uL (0.01-0.08); Eosinophil % 1.6 % (0.8-7.0); Eosinophil (Absolute #) 0.15 x10^3/uL (0.04-0.54); Hematocrit 41.9 % (40.1-51.0); Hemoglobin 13.6 g/dL (13.7-17.5); IMMATURE GRAN # 0.04 x10^3u/L (0.001-0.031); IMMATURE GRAN % 0.4 % (0.001-0.429); Lymphocyte (Absolute #) 2.47 x10^3/uL (1.32-3.57); Lymphocytes % 26.7 % (21.8-53.1); Mean Cell Volume 93.9 fL (79.0-92.2); Mean Corpuscular Hemoglobin 30.5 pg (25.7-32.2); Mean Corpuscular Hgb Concent. 32.5 g/dL (32.3-36.5); Mean Platelet Volume 10.2 fL (9.4-12.4); Monocyte (Absolute #) 0.78 x10^3/uL (0.30-0.82); Monocytes % 8.4 % (5.3-12.2); Platelet Count 397 x10^3/uL (163-337); Red Blood Count 4.46 x10^6/uL (4.63-6.08); Red Cell Distribution Width 13.4 % (11.6-14.4); White Blood Count 9.2 x10^3/uL (4.23-9.07)
--- NOTE | 2024-05-11 05:40 | PCM.NOTE ---
Date and Time: 05/11/24 0538 Subjective Assessment: Mr. Muñoz is a 68-year-old male with a pmhx of coronary artery disease, hypertension, hyperlipidemia, arrhythmia, and chronic obstructive pulmonary disease (COPD), currently incarcerated who presented to ED 05/10/24 with complaints of chest pain. [facility], he was noted to be somewhat reynoso and ashen, with a significantly elevated systolic blood pressure exceeding 200 mmHg. He was given his blood pressure medication, and upon arrival at the emergency department, his systolic blood pressure had decreased to the 130s. His oxygen saturation on room air was approximately 96%. The patient describes central, substernal chest pain that radiates to the left side of his neck and left shoulder. He is not the best historian. 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 IP he started having episodes of V-Tach. Pt moved to ICU and stat cardiology consult placed. CXR negative for acute concern. Trop x1 negative. He c/o nausea, SOB, and LUQ & RUQ abd. pain. UDS negative. Flu/COVID/RSV pending Pt on baseline 2lNC O2 at 96%. Consider tx to higher level of care. 05/11/24: Patient endorsing improvement in chest pain this morning. Describes the pain to his left chest with radiation to the left arm and left neck. Rating the pain 4/10 on numerical pain scale this morning. Cardiology consulted 05/10/24 with recs for the initiation of metoprolol 50mg bid - overnight patient was hypotensive. Metoprolol decreased to 12.5mg q6H. Now on hold by current telecardio. Telecardio to see patient today for further evaluation. <ELIZABETH MCKEON - Last Filed: 05/11/24 12:39> Date and Time: 05/12/24 183 <KAYLAH ESCALANTE - Last Filed: 05/12/24 18:33> - Review of Systems Constitutional: No Symptoms Eyes: No Symptoms Ears, Nose, & Throat: No Symptoms Respiratory: No Symptoms Cardiac: Chest Pain Abdominal/Gastrointestinal: No Symptoms Genitourinary Symptoms: No Symptoms Musculoskeletal: No Symptoms Skin: No Symptoms Neurological: No Symptoms Psychological: No Symptoms Endocrine: No Symptoms Hematologic/Lymphatic: No Symptoms Immunological/Allergic: No Symptoms <ELIZABETH MCKEON - Last Filed: 05/11/24 12:39> Objective Exam General Appearance: no apparent distress Neurologic Exam: alert, oriented x 3, cooperative Skin Exam: normal color Eye Exam: PERRL Ears, Nose, Throat Exam: normal ENT inspection Neck Exam: normal inspection Respiratory Exam: normal breath sounds, lungs clear Cardiovascular Exam: regular rate/rhythm, normal heart sounds Gastrointestinal/Abdomen Exam: soft, normal bowel sounds Extremity Exam: normal inspection Back Exam: normal inspection Male Genitalia Exam: deferred Rectal Exam: deferred <ELIZABETH MCKEON - Last Filed: 05/11/24 12:39> Objective Data Vital Signs: Vital Signs - 24 hr Temp Pulse Resp BP BP Pulse Ox 05/11/24 05:02 53 L 16 99/62 100 05/11/24 04:06 97.5 F 60 23 102/55 98 05/11/24 04:00 60 05/11/24 03:07 58 L 19 98/63 98 05/11/24 02:10 60 14 96/61 97 05/11/24 02:01 57 L 26 H 84/44 05/11/24 01:09 62 22 99/55 99 05/11/24 00:08 97.3 F 62 17 117/63 98 05/11/24 00:00 62 05/10/24 23:46 61 22 105/55 97 05/10/24 23:16 61 31 H 87/51 98 05/10/24 23:11 61 27 H 83/44 99 05/10/24 23:01 67 12 82/39 05/10/24 22:19 63 12 111/55 95 05/10/24 22:17 71 15 93/49 96 05/10/24 22:10 66 19 99/65 97 05/10/24 22:04 67 19 92/66 97 05/10/24 22:01 64 18 103/59 05/10/24 21:25 72 23 86/61 96 05/10/24 21:06 67 19 79/65 96 05/10/24 21:01 68 19 93/32 94 L 05/10/24 20:01 97.0 F 66 15 99/55 96 05/10/24 20:00 66 05/10/24 19:15 89 22 94 L 05/10/24 19:01 76 26 H 81/54 94 L 05/10/24 18:59 96 05/10/24 18:26 73 20 89/53 94 L 05/10/24 18:25 72 20 26 L 05/10/24 18:20 71 22 95 05/10/24 18:10 73 20 94 L 05/10/24 18:03 76 25 H 95 05/10/24 17:32 96 05/10/24 17:01 97.7 F 76 20 123/70 96 05/10/24 16:46 76 19 117/66 93 L 05/10/24 16:45 82 16 05/10/24 16:40 76 24 95 05/10/24 16:30 97.7 F 79 17 95 05/10/24 16:20 73 23 98 05/10/24 16:10 74 24 97 05/10/24 16:05 74 20 97 05/10/24 16:01 76 23 96 05/10/24 15:33 97.9 F 71 28 H 108/67 98 05/10/24 15:31 73 20 96 05/10/24 15:30 74 23 108/57 96 05/10/24 15:23 74 23 87 L 05/10/24 15:10 70 27 H 05/10/24 15:00 69 15 05/10/24 14:58 73 16 05/10/24 14:55 97.9 F 68 22 128/71 96 05/10/24 14:52 98 05/10/24 14:20 73 24 100 05/10/24 14:10 75 17 99 05/10/24 14:03 77 18 100 05/10/24 13:31 76 19 161/85 100 05/10/24 13:30 70 14 100 05/10/24 13:20 13 100 05/10/24 13:10 70 24 100 05/10/24 12:02 74 18 162/59 98 05/10/24 12:01 73 16 05/10/24 11:52 99 05/10/24 11:38 85 29 H 138/69 100 05/10/24 11:36 97.8 F 84 29 H 138/69 99 Oxygen-Last 24 hours Oxygen Flowrate (L/min)-RT 2 Pain Assessment - Last Documented Pain Intensity 8 Pain Scale Used 0-10 Pain Scale Intake and Output: Intake & Output 05/08/24 05/09/24 05/10/24 02/13/25 11:59 11:59 11:59 11:59 Intake Total 480 Output Total 800 Balance -320 Weight 83.915 kg 83.915 kg Lab Results: Lab Results-Last 24 Hours 05/10/24 05/10/24 05/10/24 Range/Units 12:04 12:04 12:04 WBC 11.6 H (4.23-9.07) x10^3/uL RBC 5.07 (4.63-6.08) x10^6/uL Hgb 15.7 (13.7-17.5) g/dL Hct 45.8 (40.1-51.0) % MCV 90.3 (79.0-92.2) fL MCH 31.0 (25.7-32.2) pg MCHC 34.3 (32.3-36.5) g/dL RDW 13.2 (11.6-14.4) % Plt Count 445 H (163-337) x10^3/uL MPV 10.0 (9.4-12.4) fL Gran % 76.6 H (34.0-67.9) % Immature Gran % (Auto) 0.3 (0.001-0.429) % Nucleat RBC Rel Count 0.0 (0.00-0.2) % Eos # (Auto) 0.06 (0.04-0.54) x10^3/uL Immature Gran # (Auto) 0.04 H (0.001-0.031) x10^3u/L Absolute Lymphs (auto) 1.56 (1.32-3.57) x10^3/uL Absolute Monos (auto) 0.95 H (0.30-0.82) x10^3/uL Absolute Nucleated RBC 0.00 (0.00-0.012) x10^3u/L Lymphocytes % 13.5 L (21.8-53.1) % Monocytes % 8.2 (5.3-12.2) % Eosinophils % 0.5 L (0.8-7.0) % Basophils % 0.9 (0.2-1.2) % Absolute Granulocytes 8.87 H (1.78-5.38) x10^3/uL Basophils # 0.10 H (0.01-0.08) x10^3/uL PT 14.0 H (9.4-12.5) SECONDS INR 1.31 (0.8-3.0) Sodium 139 (135-145) mmol/L Potassium 4.2 (3.5-5.1) mmol/L Chloride 103 (98-107) mmol/L Carbon Dioxide 25 (22-30) mmol/L Anion Gap 15.4 H (5-15) MEQ/L BUN 15 (9-20) mg/dL Creatinine 1.13 (0.66-1.25) mg/dL Estimated GFR 70.8 ML/MIN Glucose 126 H (74-106) mg/dL Calcium 8.9 (8.4-10.2) mg/dL Magnesium (1.6-2.3) mg/dL Total Bilirubin 1.10 (0.2-1.3) mg/dL AST 29 (17-59) U/L ALT 22 (0-50) U/L Alkaline Phosphatase 79 (38-126) U/L Troponin I (0.000-0.033) ng/mL NT-Pro-B Natriuret Pep 304 (<300) pg/mL Serum Total Protein 7.0 (6.3-8.2) g/dL Albumin 4.2 (3.5-5.0) g/dL Urine Color (Yellow) Urine Appearance (Clear) Urine pH (4.6-8.0) Ur Specific [place] (1.005-1.030) Urine Protein (Negative) Urine Glucose (UA) (Negative) mg/dL Urine Ketones (Negative) Urine Blood (Negative) Urine Nitrite (Negative) Urine Bilirubin (Negative) Urine Urobilinogen (0.2) mg/dL Ur Leukocyte Esterase (Negative) U Hyaline Cast (Auto) (0-2) /LPF Urine Microscopic RBC (0-5) /HPF Urine Microscopic WBC (0-5) /HPF Ur Epithelial Cells (None Seen) /HPF Urine Bacteria (None Seen) /HPF Urine Culture Reflexed (NO) Urine Opiates Level (NEGATIVE) Ur Methadone (NEGATIVE) Urine Barbiturates (NEGATIVE) Ur Phencyclidine (PCP) (NEGATIVE) Urine Amphetamine (NEGATIVE) U Benzodiazepine Level (NEGATIVE) Urine Cocaine (NEGATIVE) Urine Marijuana (THC) (NEGATIVE) Influenza Type A Ag (NEGATIVE) Influenza Type B Ag (NEGATIVE) RSV (PCR) (NEGATIVE) SARS-CoV-2 (PCR) (NEGATIVE) 05/10/24 05/10/24 05/10/24 Range/Units 12:04 14:14 15:25 WBC (4.23-9.07) x10^3/uL RBC (4.63-6.08) x10^6/uL Hgb (13.7-17.5) g/dL Hct (40.1-51.0) % MCV (79.0-92.2) fL MCH (25.7-32.2) pg MCHC (32.3-36.5) g/dL RDW (11.6-14.4) % Plt Count (163-337) x10^3/uL MPV (9.4-12.4) fL Gran % (34.0-67.9) % Immature Gran % (Auto) (0.001-0.429) % Nucleat RBC Rel Count (0.00-0.2) % Eos # (Auto) (0.04-0.54) x10^3/uL Immature Gran # (Auto) (0.001-0.031) x10^3u/L Absolute Lymphs (auto) (1.32-3.57) x10^3/uL Absolute Monos (auto) (0.30-0.82) x10^3/uL Absolute Nucleated RBC (0.00-0.012) x10^3u/L Lymphocytes % (21.8-53.1) % Monocytes % (5.3-12.2) % Eosinophils % (0.8-7.0) % Basophils % (0.2-1.2) % Absolute Granulocytes (1.78-5.38) x10^3/uL Basophils # (0.01-0.08) x10^3/uL PT (9.4-12.5) SECONDS INR (0.8-3.0) Sodium (135-145) mmol/L Potassium (3.5-5.1) mmol/L Chloride (98-107) mmol/L Carbon Dioxide (22-30) mmol/L Anion Gap (5-15) MEQ/L BUN (9-20) mg/dL Creatinine (0.66-1.25) mg/dL Estimated GFR ML/MIN Glucose (74-106) mg/dL Calcium (8.4-10.2) mg/dL Magnesium 1.9 (1.6-2.3) mg/dL Total Bilirubin (0.2-1.3) mg/dL AST (17-59) U/L ALT (0-50) U/L Alkaline Phosphatase (38-126) U/L Troponin I < 0.012 < 0.012 (0.000-0.033) ng/mL NT-Pro-B Natriuret Pep (<300) pg/mL Serum Total Protein (6.3-8.2) g/dL Albumin (3.5-5.0) g/dL Urine Color (Yellow) Urine Appearance (Clear) Urine pH (4.6-8.0) Ur Specific [place] (1.005-1.030) Urine Protein (Negative) Urine Glucose (UA) (Negative) mg/dL Urine Ketones (Negative) Urine Blood (Negative) Urine Nitrite (Negative) Urine Bilirubin (Negative) Urine Urobilinogen (0.2) mg/dL Ur Leukocyte Esterase (Negative) U Hyaline Cast (Auto) (0-2) /LPF Urine Microscopic RBC (0-5) /HPF Urine Microscopic WBC (0-5) /HPF Ur Epithelial Cells (None Seen) /HPF Urine Bacteria (None Seen) /HPF Urine Culture Reflexed (NO) Urine Opiates Level NEGATIVE (NEGATIVE) Ur Methadone NEGATIVE (NEGATIVE) Urine Barbiturates NEGATIVE (NEGATIVE) Ur Phencyclidine (PCP) NEGATIVE (NEGATIVE) Urine Amphetamine NEGATIVE (NEGATIVE) U Benzodiazepine Level NEGATIVE (NEGATIVE) Urine Cocaine NEGATIVE (NEGATIVE) Urine Marijuana (THC) NEGATIVE (NEGATIVE) Influenza Type A Ag (NEGATIVE) Influenza Type B Ag (NEGATIVE) RSV (PCR) (NEGATIVE) SARS-CoV-2 (PCR) (NEGATIVE) 05/10/24 05/10/24 05/10/24 Range/Units 15:25 15:56 19:50 WBC (4.23-9.07) x10^3/uL RBC (4.63-6.08) x10^6/uL Hgb (13.7-17.5) g/dL Hct (40.1-51.0) % MCV (79.0-92.2) fL MCH (25.7-32.2) pg MCHC (32.3-36.5) g/dL RDW (11.6-14.4) % Plt Count (163-337) x10^3/uL MPV (9.4-12.4) fL Gran % (34.0-67.9) % Immature Gran % (Auto) (0.001-0.429) % Nucleat RBC Rel Count (0.00-0.2) % Eos # (Auto) (0.04-0.54) x10^3/uL Immature Gran # (Auto) (0.001-0.031) x10^3u/L Absolute Lymphs (auto) (1.32-3.57) x10^3/uL Absolute Monos (auto) (0.30-0.82) x10^3/uL Absolute Nucleated RBC (0.00-0.012) x10^3u/L Lymphocytes % (21.8-53.1) % Monocytes % (5.3-12.2) % Eosinophils % (0.8-7.0) % Basophils % (0.2-1.2) % Absolute Granulocytes (1.78-5.38) x10^3/uL Basophils # (0.01-0.08) x10^3/uL PT (9.4-12.5) SECONDS INR (0.8-3.0) Sodium (135-145) mmol/L Potassium (3.5-5.1) mmol/L Chloride (98-107) mmol/L Carbon Dioxide (22-30) mmol/L Anion Gap (5-15) MEQ/L BUN (9-20) mg/dL Creatinine (0.66-1.25) mg/dL Estimated GFR ML/MIN Glucose (74-106) mg/dL Calcium (8.4-10.2) mg/dL Magnesium (1.6-2.3) mg/dL Total Bilirubin (0.2-1.3) mg/dL AST (17-59) U/L ALT (0-50) U/L Alkaline Phosphatase (38-126) U/L Troponin I < 0.012 (0.000-0.033) ng/mL NT-Pro-B Natriuret Pep (<300) pg/mL Serum Total Protein (6.3-8.2) g/dL Albumin (3.5-5.0) g/dL Urine Color Yellow (Yellow) Urine Appearance Clear (Clear) Urine pH 6.5 (4.6-8.0) Ur Specific [place] 1.025 (1.005-1.030) Urine Protein Trace A (Negative) Urine Glucose (UA) 500 A (Negative) mg/dL Urine Ketones Trace A (Negative) Urine Blood Negative (Negative) Urine Nitrite Negative (Negative) Urine Bilirubin Negative (Negative) Urine Urobilinogen 2.0 A (0.2) mg/dL Ur Leukocyte Esterase Negative (Negative) U Hyaline Cast (Auto) NONE SEEN (0-2) /LPF Urine Microscopic RBC 0-2 (0-5) /HPF Urine Microscopic WBC 0-2 (0-5) /HPF Ur Epithelial Cells None Seen (None Seen) /HPF Urine Bacteria None Seen (None Seen) /HPF Urine Culture Reflexed NO (NO) Urine Opiates Level (NEGATIVE) Ur Methadone (NEGATIVE) Urine Barbiturates (NEGATIVE) Ur Phencyclidine (PCP) (NEGATIVE) Urine Amphetamine (NEGATIVE) U Benzodiazepine Level (NEGATIVE) Urine Cocaine (NEGATIVE) Urine Marijuana (THC) (NEGATIVE) Influenza Type A Ag NEGATIVE (NEGATIVE) Influenza Type B Ag NEGATIVE (NEGATIVE) RSV (PCR) NEGATIVE (NEGATIVE) SARS-CoV-2 (PCR) NEGATIVE (NEGATIVE) 05/11/24 Range/Units 04:35 WBC 9.2 H (4.23-9.07) x10^3/uL RBC 4.46 L (4.63-6.08) x10^6/uL Hgb 13.6 L (13.7-17.5) g/dL Hct 41.9 (40.1-51.0) % MCV 93.9 H (79.0-92.2) fL MCH 30.5 (25.7-32.2) pg MCHC 32.5 (32.3-36.5) g/dL RDW 13.4 (11.6-14.4) % Plt Count 397 H (163-337) x10^3/uL MPV 10.2 (9.4-12.4) fL Gran % 62.0 (34.0-67.9) % Immature Gran % (Auto) 0.4 (0.001-0.429) % Nucleat RBC Rel Count 0.0 (0.00-0.2) % Eos # (Auto) 0.15 (0.04-0.54) x10^3/uL Immature Gran # (Auto) 0.04 H (0.001-0.031) x10^3u/L Absolute Lymphs (auto) 2.47 (1.32-3.57) x10^3/uL Absolute Monos (auto) 0.78 (0.30-0.82) x10^3/uL Absolute Nucleated RBC 0.00 (0.00-0.012) x10^3u/L Lymphocytes % 26.7 (21.8-53.1) % Monocytes % 8.4 (5.3-12.2) % Eosinophils % 1.6 (0.8-7.0) % Basophils % 0.9 (0.2-1.2) % Absolute Granulocytes 5.72 H (1.78-5.38) x10^3/uL Basophils # 0.08 (0.01-0.08) x10^3/uL PT (9.4-12.5) SECONDS INR (0.8-3.0) Sodium (135-145) mmol/L Potassium (3.5-5.1) mmol/L Chloride (98-107) mmol/L Carbon Dioxide (22-30) mmol/L Anion Gap (5-15) MEQ/L BUN (9-20) mg/dL Creatinine (0.66-1.25) mg/dL Estimated GFR ML/MIN Glucose (74-106) mg/dL Calcium (8.4-10.2) mg/dL Magnesium (1.6-2.3) mg/dL Total Bilirubin (0.2-1.3) mg/dL AST (17-59) U/L ALT (0-50) U/L Alkaline Phosphatase (38-126) U/L Troponin I (0.000-0.033) ng/mL NT-Pro-B Natriuret Pep (<300) pg/mL Serum Total Protein (6.3-8.2) g/dL Albumin (3.5-5.0) g/dL Urine Color (Yellow) Urine Appearance (Clear) Urine pH (4.6-8.0) Ur Specific [place] (1.005-1.030) Urine Protein (Negative) Urine Glucose (UA) (Negative) mg/dL Urine Ketones (Negative) Urine Blood (Negative) Urine Nitrite (Negative) Urine Bilirubin (Negative) Urine Urobilinogen (0.2) mg/dL Ur Leukocyte Esterase (Negative) U Hyaline Cast (Auto) (0-2) /LPF Urine Microscopic RBC (0-5) /HPF Urine Microscopic WBC (0-5) /HPF Ur Epithelial Cells (None Seen) /HPF Urine Bacteria (None Seen) /HPF Urine Culture Reflexed (NO) Urine Opiates Level (NEGATIVE) Ur Methadone (NEGATIVE) Urine Barbiturates (NEGATIVE) Ur Phencyclidine (PCP) (NEGATIVE) Urine Amphetamine (NEGATIVE) U Benzodiazepine Level (NEGATIVE) Urine Cocaine (NEGATIVE) Urine Marijuana (THC) (NEGATIVE) Influenza Type A Ag (NEGATIVE) Influenza Type B Ag (NEGATIVE) RSV (PCR) (NEGATIVE) SARS-CoV-2 (PCR) (NEGATIVE) Radiology Exams: Radiology Procedures Category Date Time Status CHEST 1 VIEW (PORTABLE) Stat Exams 05/10/24 11:45 Completed <ELIZABETH MCKEON - Last Filed: 05/11/24 12:39> Vital Signs: Vital Signs - 24 hr Temp Pulse Resp BP Pulse Ox 05/12/24 16:35 98.2 F 05/12/24 16:03 90 21 96 05/12/24 15:46 79 20 111/83 95 05/12/24 15:40 77 23 05/12/24 15:39 80 25 H 05/12/24 15:38 81 05/12/24 15:16 84 137/63 05/12/24 15:15 87 30 H 05/12/24 15:14 84 35 H 05/12/24 15:06 89 30 H 157/65 05/12/24 15:05 79 26 H 157/65 05/12/24 15:00 77 05/12/24 14:50 78 26 H 05/12/24 14:40 72 19 05/12/24 14:30 78 22 05/12/24 14:20 75 20 05/12/24 14:10 78 20 05/12/24 14:03 75 20 05/12/24 13:36 97.7 F 05/12/24 13:01 73 19 133/90 99 05/12/24 13:00 78 19 99 05/12/24 12:50 78 18 97 05/12/24 12:40 76 21 98 05/12/24 12:30 88 24 97 05/12/24 12:20 83 22 98 05/12/24 12:10 72 20 97 05/12/24 12:03 73 18 96 05/12/24 12:00 77 05/12/24 11:01 70 18 117/62 96 05/12/24 10:21 76 18 123/77 95 05/12/24 08:01 160/87 05/12/24 08:00 97.7 F 69 05/12/24 07:07 74 15 129/85 100 05/12/24 06:45 77 18 99 05/12/24 06:05 83 148/82 99 05/12/24 05:14 67 135/69 99 05/12/24 04:01 96.9 F 67 18 135/82 99 05/12/24 04:00 67 05/12/24 03:01 58 L 19 131/54 99 05/12/24 02:01 73 18 125/62 98 05/12/24 01:01 77 18 143/61 99 05/12/24 00:01 97.5 F 71 15 107/61 98 05/12/24 00:00 71 05/11/24 23:02 78 13 143/66 98 05/11/24 22:01 84 14 114/75 99 05/11/24 21:00 64 15 116/65 99 05/11/24 20:11 97.3 F 67 17 109/61 96 05/11/24 20:00 67 05/11/24 19:01 82 25 H 05/11/24 19:00 63 19 05/11/24 18:50 67 20 05/11/24 18:40 64 22 Pain Assessment - Last Documented Pain Intensity 8 Pain Scale Used 0-10 Pain Scale Intake and Output: Intake & Output 05/10/24 05/11/24 05/12/24 05/13/24 11:59 11:59 11:59 11:59 Intake Total 2221 2399 120 Output Total 1450 1750 200 Balance 771 649 -80 Weight 83.915 kg 83.915 kg 86.2 kg Lab Results: Lab Results-Last 24 Hours 02/14/25 02/14/25 02/14/25 Range/Units 04:15 04:15 15:00 WBC 8.6 (4.23-9.07) x10^3/uL RBC 4.84 (4.63-6.08) x10^6/uL Hgb 15.0 (13.7-17.5) g/dL Hct 46.0 (40.1-51.0) % MCV 95.0 H (79.0-92.2) fL MCH 31.0 (25.7-32.2) pg MCHC 32.6 (32.3-36.5) g/dL RDW 13.9 (11.6-14.4) % Plt Count 430 H (163-337) x10^3/uL MPV 10.6 (9.4-12.4) fL Gran % 60.5 (34.0-67.9) % Immature Gran % (Auto) 0.2 (0.001-0.429) % Nucleat RBC Rel Count 0.0 (0.00-0.2) % Eos # (Auto) 0.24 (0.04-0.54) x10^3/uL Immature Gran # (Auto) 0.02 (0.001-0.031) x10^3u/L Absolute Lymphs (auto) 2.23 (1.32-3.57) x10^3/uL Absolute Monos (auto) 0.84 H (0.30-0.82) x10^3/uL Absolute Nucleated RBC 0.00 (0.00-0.012) x10^3u/L Lymphocytes % 25.8 (21.8-53.1) % Monocytes % 9.7 (5.3-12.2) % Eosinophils % 2.8 (0.8-7.0) % Basophils % 1.0 (0.2-1.2) % Absolute Granulocytes 5.21 (1.78-5.38) x10^3/uL Basophils # 0.09 H (0.01-0.08) x10^3/uL Sodium 138 (135-145) mmol/L Potassium 4.4 (3.5-5.1) mmol/L Chloride 107 (98-107) mmol/L Carbon Dioxide 26 (22-30) mmol/L Anion Gap 10.0 (5-15) MEQ/L BUN 13 (9-20) mg/dL Creatinine 1.22 (0.66-1.25) mg/dL Estimated GFR 64.6 ML/MIN Glucose 87 (74-106) mg/dL Calcium 8.1 L (8.4-10.2) mg/dL Total Bilirubin 0.70 (0.2-1.3) mg/dL AST 23 (17-59) U/L ALT 16 (0-50) U/L Alkaline Phosphatase 69 (38-126) U/L Troponin I < 0.012 (0.000-0.033) ng/mL Serum Total Protein 6.6 (6.3-8.2) g/dL Albumin 3.9 (3.5-5.0) g/dL Radiology Exams: Radiology Procedures Category Date Time Status HEAD WITHOUT CONTRAST [CT] Stat Exams 05/12/24 08:22 Completed MRI BRAIN W/O CONTRAST [MRI] Routine Exams 05/12/24 10:02 Completed Multi-Disciplinary Progress Notes: Multi-Disciplinary Progress Notes 05/12/24 09:17 Case Management Note by Elaina Kessler NO CHANGE IN DC PLANS - PATIENT STILL IN CUSTODY- PATIENT TO RETURN TO [facility] AT TIME OF DC Initialized on 05/12/24 09:17 - END OF NOTE <KAYLAH ESCALANTE - Last Filed: 05/12/24 18:33> Assessment/Plan (1) Chest pain Current Visit: Yes Status: Acute Assessment & Plan: - EKG NS this morning - trend trops - Trop x3 negative - ICU tele -UDS negative -Telecardio reconsulted -Metoprolol on hold Code(s): R07.9 - CHEST PAIN, UNSPECIFIED (2) Leukocytosis Current Visit: Yes Status: Acute Assessment & Plan: - WBC reviewed downtrending 9.2<11.6 - Flu/COVID/RSV pending - CXR negative for acute concern - CBC, CMP reviewed - UA negative Code(s): D72.829 - ELEVATED WHITE BLOOD CELL COUNT, UNSPECIFIED (3) Ventricular tachycardia Current Visit: Yes Status: Acute Assessment & Plan: -Cardiology consulted with initial recs for metoprolol 50mg bid - patient became hypotensive - Metoprolol on hold until cardio reconsult today - ICU tele - EKG Code(s): I47.20 - VENTRICULAR TACHYCARDIA, UNSPECIFIED (4) COPD (chronic obstructive pulmonary disease) Current Visit: No Status: Acute Assessment & Plan: - On baseline O2 at 2LNC - CXR reviewed (5) Hypertension Current Visit: No Status: Chronic Qualifiers: Hypertension type: unspecified Qualified Code(s): I10 - Essential (primary) hypertension Assessment & Plan: - BP low overnight - hold meds if remaining hypotensive - Continue home meds VTE: PLavix, Xarelto Next fo KIN: Sibling, Izzy D/C plan: 1-2 days Code status: Full Code(s): I10 - ESSENTIAL (PRIMARY) HYPERTENSION <ELIZABETH MCKEON - Last Filed: 05/11/24 12:39> Addendum to History & Physical - History & Physical Addendum Addendum to History & Physical: This certifies that the History & Physical in the electronic chart reflects the current health status of the patient. If there are changes in the H&P these changes/exceptions are listed as follows. I have personally seen and examined this patient and have discussed pertinent aspects of care with Elizabeth Mckeon, N.P. and agree with the history, physical examination (any modifications based on my personal exam will be noted above), assessment, and plan as outlined in the original note. Please see immediately above for my summary of findings and additional assessment and plan. Also, any meaningful corrections or explanations to the subjective and objective portions of their note will be noted. This visit was conducted via telemedicine after consent obtained. A real time audiovisual connection was used between my location and the patient's location at the hospital. Labs and imaging reviewed. Kaylah Escalante MD [facility] Agree with plan. <KAYLAH ESCALANTE - Last Filed: 05/12/24 18:33>
[2024-05-11 07:40] LABS: ALBUMIN 3.6 g/dL (3.5-5.0); ANION GAP 12.3 MEQ/L (5-15); Calcium 8.1 mg/dL (8.4-10.2); Creatinine 1 1.22 mg/dL (0.66-1.25); EST GLOMERULAR FILTRATION RATE 64.6 ML/MIN; Potassium 4.3 mmol/L (3.5-5.1); Total Protein 6.2 g/dL (6.3-8.2)
[2024-05-11] MEDS ORDERED: NON-FORMULARY ITEM (Rivaroxaban [Xarelto] 20 MG Tablet) PO SCH (10:00)
[2024-05-11] MEDS ORDERED: NON-FORMULARY ITEM (Atorvastatin Calcium [Atorvastatin Calcium] 20 MG Tablet) PO SCH (10:00)
[2024-05-11] MEDS: PLAVIX Tablet PO SCH (10:08)
[2024-05-11] MEDS: Lopressor 25MG Tab PO SCH (10:08)
[2024-05-11] MEDS: Zestril 10 MG PO SCH (10:08)
[2024-05-11] MEDS: XARELTO 10 MG TABLET PO SCH (10:08)
[2024-05-11] MEDS: ZOCOR 20MG PO SCH (10:09)
--- NOTE | 2024-05-11 11:50 | PCM.NOTE ---
Date and Time: 05/11/24 1103 Follow-up of Dr. Kamara's consult from yesterday. 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 Patient had a 4.5 second pause this am while awake which was asymptomatic. Subjective Assessment: Had PCI one year ago and 8 months ago without any relief of his chronic chest pain. Left precordial discomfort radiates to his left arm and is associated with left hand numbness. His left hand numbness has been present for at least a month. He does not know how long ago he was diagnosed with atrial fibrillation. Denies any history of syncope. Has occasional palpitations which he says is associated with chest pain. Has occasional light-headedness. Unclear if it is related to his palpitations. He is a poor historian. Not familiar with his medical history. His primary staff attorney, Dr. Martín Fuchs, was contacted this afternoon. He has only seen him once in the office and once at another hospital. Patient is noncompliant and does not follow-up. Exam General:: no acute distress HEENT: EOMI Cardiovascular: Regular Rate & Rhythm (with frequent irregular beats.), s1 s2 (normal), no murmurs,rubs,gallops Respiratory:: clear to auscultation benny O2 Delivery: Nasal Cannula Abdominal: active bowel sounds x 4 Extremity Exam: No edema Neurologic: top cleaner II-XII grossly intact, No motor deficits Objective Data Vital Signs: Vital Signs - 24 hr Temp Pulse Resp BP BP Pulse Ox 05/11/24 10:11 69 18 124/53 97 05/11/24 10:10 68 21 94 L 05/11/24 10:02 79 20 96 05/11/24 09:01 77 21 109/62 96 05/11/24 08:01 76 19 147/87 96 05/11/24 07:00 74 23 126/72 99 05/11/24 06:22 66 20 117/76 98 05/11/24 06:02 66 17 144/84 99 05/11/24 05:38 56 L 16 100 05/11/24 05:02 53 L 16 99/62 100 05/11/24 04:06 97.5 F 60 23 102/55 98 05/11/24 04:00 60 05/11/24 03:07 58 L 19 98/63 98 05/11/24 02:10 60 14 96/61 97 05/11/24 02:01 57 L 26 H 84/44 05/11/24 01:09 62 22 99/55 99 05/11/24 00:08 97.3 F 62 17 117/63 98 05/11/24 00:00 62 05/10/24 23:46 61 22 105/55 97 05/10/24 23:16 61 31 H 87/51 98 05/10/24 23:11 61 27 H 83/44 99 05/10/24 23:01 67 12 82/39 05/10/24 22:19 63 12 111/55 95 05/10/24 22:17 71 15 93/49 96 05/10/24 22:10 66 19 99/65 97 05/10/24 22:04 67 19 92/66 97 05/10/24 22:01 64 18 103/59 05/10/24 21:25 72 23 86/61 96 05/10/24 21:06 67 19 79/65 96 05/10/24 21:01 68 19 93/32 94 L 05/10/24 20:01 97.0 F 66 15 99/55 96 05/10/24 20:00 66 05/10/24 19:15 89 22 94 L 05/10/24 19:01 76 26 H 81/54 94 L 05/10/24 18:59 96 05/10/24 18:26 73 20 89/53 94 L 05/10/24 18:25 72 20 26 L 05/10/24 18:20 71 22 95 05/10/24 18:10 73 20 94 L 05/10/24 18:03 76 25 H 95 05/10/24 17:32 96 05/10/24 17:01 97.7 F 76 20 123/70 96 05/10/24 16:46 76 19 117/66 93 L 05/10/24 16:45 82 16 05/10/24 16:40 76 24 95 05/10/24 16:30 97.7 F 79 17 95 05/10/24 16:20 73 23 98 05/10/24 16:10 74 24 97 05/10/24 16:05 74 20 97 05/10/24 16:01 76 23 96 05/10/24 15:33 97.9 F 71 28 H 108/67 98 05/10/24 15:31 73 20 96 05/10/24 15:30 74 23 108/57 96 05/10/24 15:23 74 23 87 L 05/10/24 15:10 70 27 H 05/10/24 15:00 69 15 05/10/24 14:58 73 16 05/10/24 14:55 97.9 F 68 22 128/71 96 05/10/24 14:52 98 05/10/24 14:20 73 24 100 05/10/24 14:10 75 17 99 05/10/24 14:03 77 18 100 05/10/24 13:31 76 19 161/85 100 05/10/24 13:30 70 14 100 05/10/24 13:20 13 100 05/10/24 13:10 70 24 100 05/10/24 12:02 74 18 162/59 98 05/10/24 12:01 73 16 05/10/24 11:52 99 05/10/24 11:38 85 29 H 138/69 100 05/10/24 11:36 97.8 F 84 29 H 138/69 99 Oxygen-Last 24 hours Oxygen Flowrate (L/min)-RT 2 Pain Assessment - Last Documented Pain Intensity 5 Pain Scale Used 0-10 Pain Scale Intake and Output: Intake & Output 05/08/24 05/09/24 05/10/24 05/11/24 11:59 11:59 11:59 11:59 Intake Total 2221 Output Total 1450 Balance 771 Weight 83.915 kg 83.915 kg LAB: I have reviewed the Labs in [facility]. Lab Results: Lab Results-Last 24 Hours 05/10/24 05/10/24 05/10/24 Range/Units 12:04 12:04 12:04 WBC 11.6 H (4.23-9.07) x10^3/uL RBC 5.07 (4.63-6.08) x10^6/uL Hgb 15.7 (13.7-17.5) g/dL Hct 45.8 (40.1-51.0) % MCV 90.3 (79.0-92.2) fL MCH 31.0 (25.7-32.2) pg MCHC 34.3 (32.3-36.5) g/dL RDW 13.2 (11.6-14.4) % Plt Count 445 H (163-337) x10^3/uL MPV 10.0 (9.4-12.4) fL Gran % 76.6 H (34.0-67.9) % Immature Gran % (Auto) 0.3 (0.001-0.429) % Nucleat RBC Rel Count 0.0 (0.00-0.2) % Eos # (Auto) 0.06 (0.04-0.54) x10^3/uL Immature Gran # (Auto) 0.04 H (0.001-0.031) x10^3u/L Absolute Lymphs (auto) 1.56 (1.32-3.57) x10^3/uL Absolute Monos (auto) 0.95 H (0.30-0.82) x10^3/uL Absolute Nucleated RBC 0.00 (0.00-0.012) x10^3u/L Lymphocytes % 13.5 L (21.8-53.1) % Monocytes % 8.2 (5.3-12.2) % Eosinophils % 0.5 L (0.8-7.0) % Basophils % 0.9 (0.2-1.2) % Absolute Granulocytes 8.87 H (1.78-5.38) x10^3/uL Basophils # 0.10 H (0.01-0.08) x10^3/uL PT 14.0 H (9.4-12.5) SECONDS INR 1.31 (0.8-3.0) Sodium 139 (135-145) mmol/L Potassium 4.2 (3.5-5.1) mmol/L Chloride 103 (98-107) mmol/L Carbon Dioxide 25 (22-30) mmol/L Anion Gap 15.4 H (5-15) MEQ/L BUN 15 (9-20) mg/dL Creatinine 1.13 (0.66-1.25) mg/dL Estimated GFR 70.8 ML/MIN Glucose 126 H (74-106) mg/dL Calcium 8.9 (8.4-10.2) mg/dL Magnesium (1.6-2.3) mg/dL Total Bilirubin 1.10 (0.2-1.3) mg/dL AST 29 (17-59) U/L ALT 22 (0-50) U/L Alkaline Phosphatase 79 (38-126) U/L Troponin I (0.000-0.033) ng/mL NT-Pro-B Natriuret Pep 304 (<300) pg/mL Serum Total Protein 7.0 (6.3-8.2) g/dL Albumin 4.2 (3.5-5.0) g/dL Urine Color (Yellow) Urine Appearance (Clear) Urine pH (4.6-8.0) Ur Specific [place] (1.005-1.030) Urine Protein (Negative) Urine Glucose (UA) (Negative) mg/dL Urine Ketones (Negative) Urine Blood (Negative) Urine Nitrite (Negative) Urine Bilirubin (Negative) Urine Urobilinogen (0.2) mg/dL Ur Leukocyte Esterase (Negative) U Hyaline Cast (Auto) (0-2) /LPF Urine Microscopic RBC (0-5) /HPF Urine Microscopic WBC (0-5) /HPF Ur Epithelial Cells (None Seen) /HPF Urine Bacteria (None Seen) /HPF Urine Culture Reflexed (NO) Urine Opiates Level (NEGATIVE) Ur Methadone (NEGATIVE) Urine Barbiturates (NEGATIVE) Ur Phencyclidine (PCP) (NEGATIVE) Urine Amphetamine (NEGATIVE) U Benzodiazepine Level (NEGATIVE) Urine Cocaine (NEGATIVE) Urine Marijuana (THC) (NEGATIVE) Influenza Type A Ag (NEGATIVE) Influenza Type B Ag (NEGATIVE) RSV (PCR) (NEGATIVE) SARS-CoV-2 (PCR) (NEGATIVE) 05/10/24 05/10/24 05/10/24 Range/Units 12:04 14:14 15:25 WBC (4.23-9.07) x10^3/uL RBC (4.63-6.08) x10^6/uL Hgb (13.7-17.5) g/dL Hct (40.1-51.0) % MCV (79.0-92.2) fL MCH (25.7-32.2) pg MCHC (32.3-36.5) g/dL RDW (11.6-14.4) % Plt Count (163-337) x10^3/uL MPV (9.4-12.4) fL Gran % (34.0-67.9) % Immature Gran % (Auto) (0.001-0.429) % Nucleat RBC Rel Count (0.00-0.2) % Eos # (Auto) (0.04-0.54) x10^3/uL Immature Gran # (Auto) (0.001-0.031) x10^3u/L Absolute Lymphs (auto) (1.32-3.57) x10^3/uL Absolute Monos (auto) (0.30-0.82) x10^3/uL Absolute Nucleated RBC (0.00-0.012) x10^3u/L Lymphocytes % (21.8-53.1) % Monocytes % (5.3-12.2) % Eosinophils % (0.8-7.0) % Basophils % (0.2-1.2) % Absolute Granulocytes (1.78-5.38) x10^3/uL Basophils # (0.01-0.08) x10^3/uL PT (9.4-12.5) SECONDS INR (0.8-3.0) Sodium (135-145) mmol/L Potassium (3.5-5.1) mmol/L Chloride (98-107) mmol/L Carbon Dioxide (22-30) mmol/L Anion Gap (5-15) MEQ/L BUN (9-20) mg/dL Creatinine (0.66-1.25) mg/dL Estimated GFR ML/MIN Glucose (74-106) mg/dL Calcium (8.4-10.2) mg/dL Magnesium 1.9 (1.6-2.3) mg/dL Total Bilirubin (0.2-1.3) mg/dL AST (17-59) U/L ALT (0-50) U/L Alkaline Phosphatase (38-126) U/L Troponin I < 0.012 < 0.012 (0.000-0.033) ng/mL NT-Pro-B Natriuret Pep (<300) pg/mL Serum Total Protein (6.3-8.2) g/dL Albumin (3.5-5.0) g/dL Urine Color (Yellow) Urine Appearance (Clear) Urine pH (4.6-8.0) Ur Specific [place] (1.005-1.030) Urine Protein (Negative) Urine Glucose (UA) (Negative) mg/dL Urine Ketones (Negative) Urine Blood (Negative) Urine Nitrite (Negative) Urine Bilirubin (Negative) Urine Urobilinogen (0.2) mg/dL Ur Leukocyte Esterase (Negative) U Hyaline Cast (Auto) (0-2) /LPF Urine Microscopic RBC (0-5) /HPF Urine Microscopic WBC (0-5) /HPF Ur Epithelial Cells (None Seen) /HPF Urine Bacteria (None Seen) /HPF Urine Culture Reflexed (NO) Urine Opiates Level NEGATIVE (NEGATIVE) Ur Methadone NEGATIVE (NEGATIVE) Urine Barbiturates NEGATIVE (NEGATIVE) Ur Phencyclidine (PCP) NEGATIVE (NEGATIVE) Urine Amphetamine NEGATIVE (NEGATIVE) U Benzodiazepine Level NEGATIVE (NEGATIVE) Urine Cocaine NEGATIVE (NEGATIVE) Urine Marijuana (THC) NEGATIVE (NEGATIVE) Influenza Type A Ag (NEGATIVE) Influenza Type B Ag (NEGATIVE) RSV (PCR) (NEGATIVE) SARS-CoV-2 (PCR) (NEGATIVE) 05/10/24 05/10/24 05/10/24 Range/Units 15:25 15:56 19:50 WBC (4.23-9.07) x10^3/uL RBC (4.63-6.08) x10^6/uL Hgb (13.7-17.5) g/dL Hct (40.1-51.0) % MCV (79.0-92.2) fL MCH (25.7-32.2) pg MCHC (32.3-36.5) g/dL RDW (11.6-14.4) % Plt Count (163-337) x10^3/uL MPV (9.4-12.4) fL Gran % (34.0-67.9) % Immature Gran % (Auto) (0.001-0.429) % Nucleat RBC Rel Count (0.00-0.2) % Eos # (Auto) (0.04-0.54) x10^3/uL Immature Gran # (Auto) (0.001-0.031) x10^3u/L Absolute Lymphs (auto) (1.32-3.57) x10^3/uL Absolute Monos (auto) (0.30-0.82) x10^3/uL Absolute Nucleated RBC (0.00-0.012) x10^3u/L Lymphocytes % (21.8-53.1) % Monocytes % (5.3-12.2) % Eosinophils % (0.8-7.0) % Basophils % (0.2-1.2) % Absolute Granulocytes (1.78-5.38) x10^3/uL Basophils # (0.01-0.08) x10^3/uL PT (9.4-12.5) SECONDS INR (0.8-3.0) Sodium (135-145) mmol/L Potassium (3.5-5.1) mmol/L Chloride (98-107) mmol/L Carbon Dioxide (22-30) mmol/L Anion Gap (5-15) MEQ/L BUN (9-20) mg/dL Creatinine (0.66-1.25) mg/dL Estimated GFR ML/MIN Glucose (74-106) mg/dL Calcium (8.4-10.2) mg/dL Magnesium (1.6-2.3) mg/dL Total Bilirubin (0.2-1.3) mg/dL AST (17-59) U/L ALT (0-50) U/L Alkaline Phosphatase (38-126) U/L Troponin I < 0.012 (0.000-0.033) ng/mL NT-Pro-B Natriuret Pep (<300) pg/mL Serum Total Protein (6.3-8.2) g/dL Albumin (3.5-5.0) g/dL Urine Color Yellow (Yellow) Urine Appearance Clear (Clear) Urine pH 6.5 (4.6-8.0) Ur Specific [place] 1.025 (1.005-1.030) Urine Protein Trace A (Negative) Urine Glucose (UA) 500 A (Negative) mg/dL Urine Ketones Trace A (Negative) Urine Blood Negative (Negative) Urine Nitrite Negative (Negative) Urine Bilirubin Negative (Negative) Urine Urobilinogen 2.0 A (0.2) mg/dL Ur Leukocyte Esterase Negative (Negative) U Hyaline Cast (Auto) NONE SEEN (0-2) /LPF Urine Microscopic RBC 0-2 (0-5) /HPF Urine Microscopic WBC 0-2 (0-5) /HPF Ur Epithelial Cells None Seen (None Seen) /HPF Urine Bacteria None Seen (None Seen) /HPF Urine Culture Reflexed NO (NO) Urine Opiates Level (NEGATIVE) Ur Methadone (NEGATIVE) Urine Barbiturates (NEGATIVE) Ur Phencyclidine (PCP) (NEGATIVE) Urine Amphetamine (NEGATIVE) U Benzodiazepine Level (NEGATIVE) Urine Cocaine (NEGATIVE) Urine Marijuana (THC) (NEGATIVE) Influenza Type A Ag NEGATIVE (NEGATIVE) Influenza Type B Ag NEGATIVE (NEGATIVE) RSV (PCR) NEGATIVE (NEGATIVE) SARS-CoV-2 (PCR) NEGATIVE (NEGATIVE) 05/11/24 05/11/24 Range/Units 04:35 04:35 WBC 9.2 H (4.23-9.07) x10^3/uL RBC 4.46 L (4.63-6.08) x10^6/uL Hgb 13.6 L (13.7-17.5) g/dL Hct 41.9 (40.1-51.0) % MCV 93.9 H (79.0-92.2) fL MCH 30.5 (25.7-32.2) pg MCHC 32.5 (32.3-36.5) g/dL RDW 13.4 (11.6-14.4) % Plt Count 397 H (163-337) x10^3/uL MPV 10.2 (9.4-12.4) fL Gran % 62.0 (34.0-67.9) % Immature Gran % (Auto) 0.4 (0.001-0.429) % Nucleat RBC Rel Count 0.0 (0.00-0.2) % Eos # (Auto) 0.15 (0.04-0.54) x10^3/uL Immature Gran # (Auto) 0.04 H (0.001-0.031) x10^3u/L Absolute Lymphs (auto) 2.47 (1.32-3.57) x10^3/uL Absolute Monos (auto) 0.78 (0.30-0.82) x10^3/uL Absolute Nucleated RBC 0.00 (0.00-0.012) x10^3u/L Lymphocytes % 26.7 (21.8-53.1) % Monocytes % 8.4 (5.3-12.2) % Eosinophils % 1.6 (0.8-7.0) % Basophils % 0.9 (0.2-1.2) % Absolute Granulocytes 5.72 H (1.78-5.38) x10^3/uL Basophils # 0.08 (0.01-0.08) x10^3/uL PT (9.4-12.5) SECONDS INR (0.8-3.0) Sodium 138 (135-145) mmol/L Potassium 4.3 (3.5-5.1) mmol/L Chloride 105 (98-107) mmol/L Carbon Dioxide 24 (22-30) mmol/L Anion Gap 12.3 (5-15) MEQ/L BUN 15 (9-20) mg/dL Creatinine 1.22 (0.66-1.25) mg/dL Estimated GFR 64.6 ML/MIN Glucose 130 H (74-106) mg/dL Calcium 8.1 L (8.4-10.2) mg/dL Magnesium (1.6-2.3) mg/dL Total Bilirubin 1.00 (0.2-1.3) mg/dL AST 24 (17-59) U/L ALT 19 (0-50) U/L Alkaline Phosphatase 60 (38-126) U/L Troponin I (0.000-0.033) ng/mL NT-Pro-B Natriuret Pep 159 (<300) pg/mL Serum Total Protein 6.2 L (6.3-8.2) g/dL Albumin 3.6 (3.5-5.0) g/dL Urine Color (Yellow) Urine Appearance (Clear) Urine pH (4.6-8.0) Ur Specific [place] (1.005-1.030) Urine Protein (Negative) Urine Glucose (UA) (Negative) mg/dL Urine Ketones (Negative) Urine Blood (Negative) Urine Nitrite (Negative) Urine Bilirubin (Negative) Urine Urobilinogen (0.2) mg/dL Ur Leukocyte Esterase (Negative) U Hyaline Cast (Auto) (0-2) /LPF Urine Microscopic RBC (0-5) /HPF Urine Microscopic WBC (0-5) /HPF Ur Epithelial Cells (None Seen) /HPF Urine Bacteria (None Seen) /HPF Urine Culture Reflexed (NO) Urine Opiates Level (NEGATIVE) Ur Methadone (NEGATIVE) Urine Barbiturates (NEGATIVE) Ur Phencyclidine (PCP) (NEGATIVE) Urine Amphetamine (NEGATIVE) U Benzodiazepine Level (NEGATIVE) Urine Cocaine (NEGATIVE) Urine Marijuana (THC) (NEGATIVE) Influenza Type A Ag (NEGATIVE) Influenza Type B Ag (NEGATIVE) RSV (PCR) (NEGATIVE) SARS-CoV-2 (PCR) (NEGATIVE) Radiology Exams: Radiology Procedures Category Date Time Status CHEST 1 VIEW (PORTABLE) Stat Exams 05/10/24 11:45 Completed TTE 09/23/2023 1. Normal LV size. 2. Mildly reduced left ventricular function. 3. Left ventricular ejection fraction estimated by 2D at 40-45 percent. 4. Resting regional wall motion abnormalities of the septum. 5. Normal right ventricular size and function. 6. There is no significant pericardial effusion. Per my review. Mild to moderately decreased LV systolic function due to mild to moderate global hypokinesis. EF 40%. 05/13/2023: 1) GLOBAL LEFT VENTRICULAR HYPOKINESIA WITH EJECTION FRACTION BETWEEN 30 TO 35%. 2) MILDLY DILATED LEFT VENTRICLE. 3) TRACE TRICUSPID REGURGITATION. RIGHT VENTRICULAR SYSTOLIC PRESSURE OF 21 MM OF MERCURY. 4) MILD MITRAL REGURGITATION. 5) LEFT VENTRICULAR DIASTOLIC DYSFUNCTION. 6) LEFT VENTRICULAR HYPERTROPHY. Tracing 1 Attestation: I have reviewed this EKG and interpreted as documented below. EKG Narrative: ECGs: 05/11/2024: Sinus bradycardia at 53 bpm with frequent PVCs. ST and T wave abnormality, consider anterolateral ischemia. 05/10/2024 x4 from 1141 - 1244: Sinus rhythm with frequent and consecutive PVCs including 3-4 beat runs of ventricular tachycardia/AIVR (94-111 bpm). Majority of PVCs with a LBBB morphology and inferior axis suggestive of a RVOT site of origin. ST and T wave abnormalities, consider high lateral ischemia. Telemetry: 05/11/2024 at 1000: 3.4 second pause including a nonconducted P wave. 05/11/2024 at 0840: 4.5 second pause with a possible nonconducted P wave. Assessment & Plan (1) Bradycardia Current Visit: No Status: Acute Assessment & Plan: Sinus pause with nonconducted P wave secondary to metoprolol treatment. Will discontinue beta-elizabeth therapy. Monitor for any additional bouts on telemetry. If no recurrences, potential discharge tomorrow with an outpatient 48 hour Holter monitor. Code(s): R00.1 - BRADYCARDIA, UNSPECIFIED (2) Ventricular tachycardia Current Visit: Yes Status: Acute Assessment & Plan: Slow NSVT with rates up to 111 bpm. Will need to set up patient for a 48 hour Holter monitor at discharge to quantitate PVC burden. If frequency is high enough to put patient at risk for a PVC induced cardiomyopathy, will need to consider an ablation at the RV outflow tract site of origin. An EP study can be performed to determine if a pacemaker is indicated for problem #1. If a pacemaker is indicated, a repeat echo can be repeated to determine if an ICD should be placed (based on LV function if EF is 30% or lower). [place]. Code(s): I47.20 - VENTRICULAR TACHYCARDIA, UNSPECIFIED (3) Chest pain Current Visit: Yes Status: Acute Assessment & Plan: Presentation not consistent with acute coronary syndrome with his prolonged symptoms and lack of a troponin-I elevation. Unclear etiology. His chest pain has never been relieved with coronary interventions Code(s): R07.9 - CHEST PAIN, UNSPECIFIED - Encounter Encounter: "The entirety of this encounter was performed via Telemedicine using audio and visual " Permission granted by patient for this type of encounter. Case discussed this afternoon with Kia Jasso NP. Records have been requested from [facility] regarding last week's hospitalization. Parker Hunter MD [facility] [phone]
--- NOTE | 2024-05-11 17:51 | TM.IN ---
Tele-Medicine Incident Note - Incident Note Tel-Medicine Incident Note: 05/11/24 1751 Reported chest pain this morning. Awaiting further cardiology recommendations. Telemedicine Encounter - Telemedicine Encounter Telemedicine Encounter: "The entirety of this encounter was performed via Telemedicine" This visit was performed using real-time audio and video connection between my location and thepatients locationwith the assistance of a surrogateat the patients location. Written or verbal consent was obtained from the patient/guardian to perform this [facility] technology. Any patient questions regarding the telemedicine interaction were answered.
[2024-05-12 05:04] LABS: Absolute Neutrophil Ct (ANC) 5.21 x10^3/uL (1.78-5.38); Basophil (Absolute #) 0.09 x10^3/uL (0.01-0.08); Eosinophil % 2.8 % (0.8-7.0); Eosinophil (Absolute #) 0.24 x10^3/uL (0.04-0.54); IMMATURE GRAN # 0.02 x10^3u/L (0.001-0.031); IMMATURE GRAN % 0.2 % (0.001-0.429); Lymphocyte (Absolute #) 2.23 x10^3/uL (1.32-3.57); Lymphocytes % 25.8 % (21.8-53.1); Mean Corpuscular Hgb Concent. 32.6 g/dL (32.3-36.5); Mean Platelet Volume 10.6 fL (9.4-12.4); Monocyte (Absolute #) 0.84 x10^3/uL (0.30-0.82); Monocytes % 9.7 % (5.3-12.2); Neutrophil % 60.5 % (34.0-67.9); Platelet Count 430 x10^3/uL (163-337); Red Blood Count 4.84 x10^6/uL (4.63-6.08); Red Cell Distribution Width 13.9 % (11.6-14.4); White Blood Count 8.6 x10^3/uL (4.23-9.07)
[2024-05-12 05:21] LABS: ALBUMIN 3.9 g/dL (3.5-5.0); BILIRUBIN,TOTAL 0.7 mg/dL (0.2-1.3); Calcium 8.1 mg/dL (8.4-10.2); Creatinine 1 1.22 mg/dL (0.66-1.25); EST GLOMERULAR FILTRATION RATE 64.6 ML/MIN; Potassium 4.4 mmol/L (3.5-5.1); Total Protein 6.6 g/dL (6.3-8.2)
--- NOTE | 2024-05-12 05:26 | PCM.NOTE ---
Date and Time: 05/12/24 0519 Subjective Assessment: Mr. Muñoz is a 68-year-old male with a pmhx of coronary artery disease, hypertension, hyperlipidemia, arrhythmia, and chronic obstructive pulmonary disease (COPD), currently incarcerated who presented to ED 05/10/24 with complaints of chest pain. At the prison, he was noted to be somewhat reynoso and ashen, with a significantly elevated systolic blood pressure exceeding 200 mmHg. He was given his blood pressure medication, and upon arrival at the emergency department, his systolic blood pressure had decreased to the 130s. His oxygen saturation on room air was approximately 96%. The patient describes central, substernal chest pain that radiates to the left side of his neck and left shoulder. He is not the best historian. Dr. Fuchs is the patients senior gl accountant. IP he started having episodes of V-Tach. Pt moved to ICU and stat cardiology consult placed. CXR negative for acute concern. Trop x1 negative. He c/o nausea, SOB, and LUQ & RUQ abd. pain. UDS negative. Flu/COVID/RSV pending Pt on baseline 2lNC O2 at 96%. Cardiology consulted with initial recs for metoprolol 50mg bid - however patient became hypotensive on this dosing and was reduced to 12.5mg q6H. Cardiology then was re-consulted 05/11/24 with recommendations for patient to remain under observation overnight on tele- will discontinue beta elizabeth therapy. Monitor for any additional bouts of sinus pause/bradycardia - if none occur potential discharge 05/12 with op 48H holter monitor to quantitate PVC burden. If frequency is high enough to put patient at risk for a PVC induced cardiomyopathy, will need to consider an ablation at the RV outflow tract site of origin. An EP study can be performed to determine if a pacemaker is indicated for problem #1. If a pacemaker is indicated, a repeat echo can be repeated to determine if an ICD should be placed (based on LV function if EF is 30% or lower). Patient should be referred to an legal consultant post discharge. Patient's senior gl accountant Dr. Fuchs notified and agrees with plan. Patient with complaints of new memory loss and confusion 05/12/24 - CT head showing Progressive worsening multifocal bilateral basal ganglia lacunar infarcts. Also new remote infarct left caudate head. No acute intracranial abnormalities. MRI pending. 05/11/24: Patient endorsing improvement in chest pain this morning. Describes the pain to his left chest with radiation to the left arm and left neck. Rating the pain 4/10 on numerical pain scale this morning. Cardiology consulted 05/10/24 with recs for the initiation of metoprolol 50mg bid - overnight patient was hypotensive. Metoprolol decreased to 12.5mg q6H. Now on hold by current telecardio. Telecardio to see patient today for further evaluation. 05/12/24: Met with patient bedside. Endorses confusion and memory issues this morning stating "I can't remember anything." Patient is able to state his name, that he is at [facility], and year. CT Head is showing Progressive worsening multifocal bilateral basal ganglia lacunar infarcts. Also new remote infarct left caudate head. No acute intracranial abnormalities. MRI brain ordered and pending. Will consult neurology. - Review of Systems Constitutional: No Symptoms Eyes: No Symptoms Ears, Nose, & Throat: No Symptoms Respiratory: No Symptoms Cardiac: No Symptoms Abdominal/Gastrointestinal: No Symptoms Genitourinary Symptoms: No Symptoms Musculoskeletal: No Symptoms Skin: No Symptoms Neurological: Other (confusion) Psychological: No Symptoms Endocrine: No Symptoms Hematologic/Lymphatic: No Symptoms Immunological/Allergic: No Symptoms Objective Exam General Appearance: no apparent distress Neurologic Exam: alert, oriented x 3, cooperative, confusion Skin Exam: normal color Eye Exam: PERRL Ears, Nose, Throat Exam: normal ENT inspection Neck Exam: normal inspection Respiratory Exam: normal breath sounds, lungs clear Cardiovascular Exam: irregular Gastrointestinal/Abdomen Exam: soft, normal bowel sounds Extremity Exam: normal inspection Back Exam: normal inspection Male Genitalia Exam: deferred Rectal Exam: deferred Objective Data Vital Signs: Vital Signs - 24 hr Temp Pulse Resp BP Pulse Ox 05/12/24 04:01 96.9 F 67 18 135/82 99 05/12/24 04:00 67 05/12/24 03:01 58 L 19 131/54 99 05/12/24 02:01 73 18 125/62 98 05/12/24 01:01 77 18 143/61 99 05/12/24 00:01 97.5 F 71 15 107/61 98 05/12/24 00:00 71 05/11/24 23:02 78 13 143/66 98 05/11/24 22:01 84 14 114/75 99 02/13/25 21:00 64 15 116/65 99 05/11/24 20:11 97.3 F 67 17 109/61 96 05/11/24 20:00 67 05/11/24 19:01 82 25 H 05/11/24 19:00 63 19 05/11/24 18:50 67 20 05/11/24 18:40 64 22 05/11/24 18:30 68 18 05/11/24 18:20 80 21 05/11/24 18:10 70 19 05/11/24 18:01 68 19 05/11/24 17:18 70 16 100 05/11/24 17:00 87 20 142/86 96 05/11/24 16:31 65 15 123/67 92 L 05/11/24 16:01 97.5 F 54 L 18 96/67 95 05/11/24 16:00 58 L 05/11/24 15:00 53 L 16 115/75 100 05/11/24 14:01 59 L 16 115/80 90 L 05/11/24 13:01 77 21 105/62 80 L 05/11/24 12:01 63 18 136/69 92 L 05/11/24 12:00 97.5 F 58 L 05/11/24 11:01 58 L 16 109/67 95 05/11/24 10:11 69 18 124/53 97 05/11/24 10:10 68 21 94 L 05/11/24 10:02 79 20 96 05/11/24 09:01 77 21 109/62 96 05/11/24 08:01 76 19 147/87 96 05/11/24 08:00 97.6 F 05/11/24 07:00 74 23 126/72 99 05/11/24 06:22 66 20 117/76 98 05/11/24 06:02 66 17 144/84 99 05/11/24 05:38 56 L 16 100 Pain Assessment - Last Documented Pain Intensity 5 Pain Scale Used 0-10 Pain Scale Intake and Output: Intake & Output 05/09/24 05/10/24 05/11/24 05/12/24 11:59 11:59 11:59 11:59 Intake Total 2221 2159 Output Total 1450 1050 Balance 771 1109 Weight 83.915 kg 83.915 kg Lab Results: Lab Results-Last 24 Hours 05/11/24 Range/Units 04:35 Sodium 138 (135-145) mmol/L Potassium 4.3 (3.5-5.1) mmol/L Chloride 105 (98-107) mmol/L Carbon Dioxide 24 (22-30) mmol/L Anion Gap 12.3 (5-15) MEQ/L BUN 15 (9-20) mg/dL Creatinine 1.22 (0.66-1.25) mg/dL Estimated GFR 64.6 ML/MIN Glucose 130 H (74-106) mg/dL Calcium 8.1 L (8.4-10.2) mg/dL Total Bilirubin 1.00 (0.2-1.3) mg/dL AST 24 (17-59) U/L ALT 19 (0-50) U/L Alkaline Phosphatase 60 (38-126) U/L NT-Pro-B Natriuret Pep 159 (<300) pg/mL Serum Total Protein 6.2 L (6.3-8.2) g/dL Albumin 3.6 (3.5-5.0) g/dL Radiology Exams: Radiology Procedures Category Date Time Status CHEST 1 VIEW (PORTABLE) Stat Exams 05/10/24 11:45 Completed Assessment/Plan (1) Chest pain Current Visit: Yes Status: Acute Assessment & Plan: - EKG NS this morning - trend trops - Trop x3 negative - ICU tele -UDS negative -Telecardio reconsulted -Metoprolol on hold TTE 09/23/2023 1. Normal LV size. 2. Mildly reduced left ventricular function. 3. Left ventricular ejection fraction estimated by 2D at 40-45 percent. 4. Resting regional wall motion abnormalities of the septum. 5. Normal right ventricular size and function. 6. There is no significant pericardial effusion. Per my review. Mild to moderately decreased LV systolic function due to mild to moderate global hypokinesis. EF 40%. 05/13/2023: 1) GLOBAL LEFT VENTRICULAR HYPOKINESIA WITH EJECTION FRACTION BETWEEN 30 TO 35%. 2) MILDLY DILATED LEFT VENTRICLE. 3) TRACE TRICUSPID REGURGITATION. RIGHT VENTRICULAR SYSTOLIC PRESSURE OF 21 MM OF MERCURY. 4) MILD MITRAL REGURGITATION. 5) LEFT VENTRICULAR DIASTOLIC DYSFUNCTION. 6) LEFT VENTRICULAR HYPERTROPHY. 05/12: -Discussed case with tele-cardiology and note reviewed 05/11- patient to remain under observation overnight on tele- will discontinue beta elizabeth therapy. Monitor for any additional bouts of sinus pause/bradycardia - if none occur potential discharge with op holter monitor to quantitate PVC burden. If frequency is high enough to put patient at risk for a PVC induced cardiomyopathy, will need to consider an ablation at the RV outflow tract site of origin. An EP study can be performed to determine if a pacemaker is indicated for problem #1. If a pacemaker is indicated, a repeat echo can be repeated to determine if an ICD should be placed (based on LV function if EF is 30% or lower). Patient should be referred to an legal consultant post discharge. Patient's senior gl accountant Dr. Fuchs notified and agrees with plan. Code(s): R07.9 - CHEST PAIN, UNSPECIFIED (2) Leukocytosis Current Visit: Yes Status: Acute Assessment & Plan: - WBC reviewed downtrending 9.2<11.6 - Flu/COVID/RSV pending - CXR negative for acute concern - CBC, CMP reviewed - UA negative 05/12: -Resolved Code(s): D72.829 - ELEVATED WHITE BLOOD CELL COUNT, UNSPECIFIED (3) Ventricular tachycardia Current Visit: Yes Status: Acute Assessment & Plan: -Cardiology consulted with initial recs for metoprolol 50mg bid - patient became hypotensive - Metoprolol on hold until cardio reconsult today - ICU tele - EKG Code(s): I47.20 - VENTRICULAR TACHYCARDIA, UNSPECIFIED (4) COPD (chronic obstructive pulmonary disease) Current Visit: No Status: Acute Assessment & Plan: - On baseline O2 at 2LNC - CXR reviewed (5) Hypertension Current Visit: No Status: Chronic Qualifiers: Hypertension type: unspecified Qualified Code(s): I10 - Essential (primary) hypertension Assessment & Plan: - BP low overnight - hold meds if remaining hypotensive - Continue home meds ##Confusion -CT head showing Progressive worsening multifocal bilateral basal ganglia lacunar infarcts. Also new remote infarct left caudate head. No acute intracranial abnormalities -Reviewed previous hospital records as well as MRI report - CTH with new finding basal ganglia lacunar infarcts and new remote infarct left caudate -MRI ordered and pending -Neurology consulted -Pt currently on plavix/xarelto VTE: PLavix, Xarelto Next fo KIN: Sibling, Izzy D/C plan: 1-2 days Code status: Full Code(s): R07.9 - CHEST PAIN, UNSPECIFIED (2) Leukocytosis Current Visit: Yes Status: Acute Code(s): D72.829 - ELEVATED WHITE BLOOD CELL COUNT, UNSPECIFIED (3) Ventricular tachycardia Current Visit: Yes Status: Acute Code(s): I47.20 - VENTRICULAR TACHYCARDIA, UNSPECIFIED (4) COPD (chronic obstructive pulmonary disease) Current Visit: No Status: Acute (5) Hypertension Current Visit: No Status: Chronic Qualifiers: Hypertension type: unspecified Qualified Code(s): I10 - Essential (primary) hypertension Code(s): I10 - ESSENTIAL (PRIMARY) HYPERTENSION
--- NOTE | 2024-05-12 08:55 | XRAY ---
Indication: New onset confusion. Multiple contiguous axial images obtained through the head without contrast. Comparison: August 26, 2018 Again age-appropriate global atrophy, moderate periventricular degenerative micro-ischemia bilaterally, and small remote infarct high right parietal lobe. Progressive worsening multifocal bilateral basal ganglia remote lacunar infarcts, left greater than right. Also new 6 mm left caudate head remote infarct. No acute intracranial hemorrhage, abnormal extra-axial fluid collection, or mass effect. Fourth ventricle is midline without hydrocephalus. Bony calvarium intact. Visualized paranasal sinuses and mastoid air cells are clear. Impression: Again nonacute senile brain with small high right parietal remote infarct. Progressive worsening multifocal bilateral basal ganglia lacunar infarcts. Also new remote infarct left caudate head. No acute intracranial abnormalities.
--- NOTE | 2024-05-12 14:07 | XRAY ---
Indication: Confusion. Nonacute senile brain and remote infarcts on same day CT head exam. Sagittal, coronal, and axial MRI brain performed without contrast using T1, T2, FLAIR, diffusion, and ADC sequences. Comparison: None Age-appropriate global atrophy and moderate periventricular degenerative micro-ischemia signal bilaterally. High right parietal lobe demonstrates small focus of remote infarct. Basal ganglia demonstrates multiple remote lacunar infarcts, left greater than right. Diffusion images negative for restricted signal. No acute intracranial hemorrhage, abnormal extra-axial fluid collection, or mass effect. Fourth ventricle is midline without hydrocephalus. Normal flow void signal within the major intracerebral circulation. Normal appearing craniocervical junction and sella turcica. Paranasal sinuses are clear. Impression: Atrophy, degenerative micro-ischemia, small remote right parietal infarct, and multiple remote bilateral basal ganglia lacunar infarcts. Findings concordant with same day CT exam. No acute intracranial abnormalities or evidence for evolving large vessel territorial stroke.
[2024-05-12] MEDS ORDERED: Nitrostat 0.4 MG Tablet SL ONE (15:00)
[2024-05-12] MEDS: Nitrostat 0.4 MG Tablet SL PRN (15:05)
--- NOTE | 2024-05-12 15:53 | PCM.CONS ---
History of Present Illness - Reason for Consult Chief Complaint: Chest pain Date of Consultation Date: 05/12/24 Reason for Consult: Left sided numbness Requesting Provider: MALKA TOMAS MD Consulting Provider: CAM GARCIA MD History of Present Illness: .Reason for Consultation: Left sided numbness Chief complaint: CP and Left sided numbness HPI: This is a 68 year old white male with past medical history of hypertension, atrial fibrillation on Xarelto, COPD, hyperlipidemia, multiple strokes in the past, history of seizures who was admitted to the hospital for chest pain and left sided numbness and pain. Consulted today for symptoms of numbness on the left side and possible concern for a stroke. He got a cat scan earlier which showed chronic white matter disease and worsening of the small vessel disease. MRI brain was obtained today which was negative for acute stroke. It did show old right partial stroke. Personally reviewed images. It seemed that the patient was admitted to the hospital recently on May 06 to a different hospital with the same symptoms of left sided numbness and possible seizure activity. At that time he got a workup done including CT head as well as CT angiogram. CT angiogram showed bilateral 50% proximal stenosis. It is not clear whether patient got MRI. Patient does not believe so. Also the records from the outside hospital did not comment on the MRI. He was found to have slightly decreased ejection fraction. After talking to the patient and looking at the medical records from outside hospital, it seems to me that the left sided numbness is chronic and these symptoms are not new. Patient also takes seizure medication as patient was admitted on May 06 to a different hospital and there was a concern for seizure and the left sided symptoms as a postictal effect. Blood pressure 157 or 65 pulse rate of 77 respiratory rate of 19 and oxygen saturation of 99. WBC 8.6 hemoglobin 15.0 hematocrit 46.0 platelet count of 430 sodium 138 potassium 4.4 chloride 107 bicarb 26 BUN 13 creatinine 1.22 calcium 8.7 glucose 87 AST 23 deanne 16 Medical history: see above Surgical history: splenectomy Family history: non contributory Social history: history of substance abuse REVIEW OF SYSTEMS: 12-point review of system is negative unless otherwise mentioned in the HPI VITALS Vitals reviewed from today Physical Exam: Constitutional: Gen: NAD, pleasant, well nourished HEENT: NC/AT LISA, Neurologic Exam: Higher Functions: AA&Ox2; Tracks; Regards Follows simple and complex commands Communicates appropriately Memory is compromised Concentration is appropriate Fund of Knowledge is appropriate. Language : Comprehension is intact; no aphasia; no dysarthria; repetition is intact; naming is normal; CN II : Visual dixon are full; CN III, IV, : EOMI; pursuit is smooth; no nystagmus CN V : Facial sensation is full and symmetric CN VII : Facial movement is full and symmetric CN VIII : hearing intact BL CN IX, X : SHANON CN XI : SCM 5/5 BL CN XII : Tongue protrudes midline Sensory : inconsistent exam, complains of more numbness on the right lower extremity compared to the left and then on the left upper is more numb than the right Motor : Strength 5/5 UE and LE BL Deep tendon reflexes : SHANON Plantar response : SHANON Hcfaka-ej-Izpa : LUE dysmetria Skys-Rdmh-Bsjr : normal BL, no dysmetria Abnormal Movements : none seen Gait and Station : Deferred NIH Stroke Scale 3 (0) 1a. Level of consciousness (LOC): 0=alert;1=arousable by minor stimulation;2=obtunded or needs strong stimulation to attend;3=unresponsive or reflex responses only (0) 1b. LOC Questions: 0=answers both;1=answers one;2=answers neither (0) 1c. LOC Commands: 0=performs both tasks;1=performs one task;2=performs neither task (0) 2. Best Gaze: 0=normal;1=partial gaze palsy;2=forced deviation or total gaze paresis (0) 3. Visual: 0=normal;1=partial hemianopia;2=complete hemianopia;3=blind (0) 4. Facial palsy: 0=normal;1=minor paresis;2=partial paralysis;3=complete paralysis FOR 5 AND 6 BELOW: 0=normal;1=drifts but maintains in air;2=unable to maintain in air;3=moves but unable to lift against gravity;4=no movement ( )0 (_)1 (_)2 (_)3 (_)4 (_)NA 5a. Motor arm-left ( )0 (_)1 (_)2 (_)3 (_)4 (_)NA 5b. Motor arm-right ( )0 (_)1 (_)2 (_)3 (_)4 (_)NA 6a. Motor leg-left ( )0 (_)1 (_)2 (_)3 (_)4 (_)NA 6ba. Motor leg-right ( 1 ) 7. Limb ataxia:0=absent;1=unilateral;2=bilateral; NA=unable to test ( 1 ) 8. Sensory: 0=normal;1=mild-moderate loss;2-severe or total loss ( ) 9. Best language: 0=normal;1=mild-moderate aphasia, some deficits apparent but able to communicate;2=severe aphasia, fragmentary expression only, unable to communicate well;3=global aphasia, mute and no comprehension (1 ) 10. Dysarthria: 0=normal;1=mild-moderate, slurs some words;2=severe, speech mostly unintelligible; NA=unable to test (e.g.,intubation) ( ) 11. Extinction/Inattention: 0=normal;1=visual,tactile,auditory or other extinction to bilateral simultaneous stimulation, but no severe neglect;2=answers neither Imaging CTH -ve for acute process CTA -ve for LVO Candidate for Thrombolytics: outside the window Candidate for Intervention: No LVO Assessment: 68 year old male was admitted to the hospital for chest pain and left sided upper extremity pain as well as numbness. 1-Left sided numbness: Patient complaints of left sided numbness more pronounced in left hand. Looking at the medical records and talking to the patient, it seems to me that the numbness on the left side is chronic. Patient was also admitted to the hospital on May 06 at outside facility and over there patient had the same symptoms of left sided numbness and chest pain It was determined that patient may be having seizures and was started on a Keppra 500 milligrams twice a day. He does have a history of multiple old strokes, MRI brain reviewed and it does show old right parietal stroke. Right parietal stroke can cause residual left sided numbness. Numbness specifically in the hand can be a symptom of stroke. Another differential to rule out would be a carpal tunnel syndrome 1-congestive heart failure, 2-atrial fibrillation-on Xeralto also takes Plavix 7-[id number]-rxotp Keppra 500 milligram twice a day. Could not tell me reliably when was his last seizure. Believes it was about a week ago Plan: No new stroke on MRI brain. Left hand numbness is chronic. Resume home seizure meds EEG if possible while inpatient, can be obtained as an outpatient. Patient may get an outpatient nerve conduction study to rule out carpal tunnel syndrome. Continue current antiplatelet and anticoagulation regimen. No further neurology recommendation at this time period Neurology will sign off, please call us with questions thank you Communicated plan with the primary team and RN Thank you for allowing us to participate in this patients care. Please call [facility] with questions, concerns, or change in patients neurological status. This consult was performed via secure telemedicine 2 way audio/visual platform, patient consent obtained. Medications & Allergies Home Medications: Home Medication List Atorvastatin Calcium 80 mg PO DAILY 09/22/23 [History Confirmed 05/10/24] Clopidogrel Bisulfate [Clopidogrel] 75 mg PO DAILY 05/10/24 [History Confirmed 05/10/24] Ranolazine 500 MG [Ranexa 500 MG] 500 mg PO BID 05/10/24 [History Confirmed 05/10/24] Rivaroxaban [Xarelto] 20 mg PO 1600 05/10/24 [History Confirmed 05/12/24] Furosemide 20 mg [Lasix 20 mg] 20 mg PO DAILY 05/12/24 [History Confirmed 05/12/24] Levetiracetam [Keppra] 500 mg PO BID 05/12/24 [History Confirmed 05/12/24] lisinopriL [Zestril] 2.5 mg PO QAM 05/12/24 [History Confirmed 05/12/24] Allergies/Adverse Reactions: Allergies Allergy/AdvReac Type Severity Reaction Status Date / Time Penicillins Allergy Verified 05/10/24 12:03 - Past Medical History Past Medical History: Yes Neurological History: Stroke ENT History: No Pertinent History Cardiac History: Arrhythmia, High Cholesterol, Hypertension Respiratory History: Asthma, COPD, Pneumonia Endocrine Medical History: No Pertinent History Musculoskelatal History: Arthritis, Fractures GI Medical History: No Pertinent History History: No Pertinent History Pyscho-Social History: No Pertinent History Male Reproductive Disorders: No Pertinent History Comment: pt is a poor historian, and unsure. Completed to best of ability. - Past Surgical History Past Surgical History: Yes Neuro Surgical History: No Pertinent History Cardiac History: No Pertinent History Respiratory Surgery: No Pertinent History GI Surgical History: No Pertinent History Genitourinary Surgical Hx: No Pertinent History Musculskeletal Surgical Hx: No Pertinent History Male Surgical History: No Pertinent History Other Surgical History: SPLEEN REMOVED-several years ago Significant Family History: no pertinent family hx - Social History Smoking Status: Current some day smoker How long have you smoked: YRS Exposure to second hand smoke: Yes Alcohol: None Drug Use: none - Social Determinants of Health Will the patient participate in the screening: Yes Do you worry about a steady place to live?: Yes Do you have any problems with any of the following?: No known problems In the past 12 months,have you had to go without utilities?: No Have you or anyone in your house had to go without enough: No Transportation Issues: Yes Has anyone in your support network made you feel unsafe?: No Does the patient want assistance with any of the above?: No Comment: pt states sometimes he stays with his sister - Physical Exam Vital Signs: Vital Signs - 24 hr Temp Pulse Resp BP Pulse Ox 05/12/24 15:38 81 05/12/24 15:16 90 137/63 05/12/24 15:05 77 157/65 05/12/24 13:36 97.7 F 05/12/24 13:00 78 19 99 05/12/24 12:50 78 18 97 05/12/24 12:40 76 21 98 05/12/24 12:30 88 24 97 05/12/24 12:20 83 22 98 05/12/24 12:10 72 20 97 05/12/24 12:03 73 18 96 05/12/24 12:00 77 05/12/24 11:01 70 18 117/62 96 05/12/24 10:21 76 18 123/77 95 05/12/24 08:01 160/87 05/12/24 08:00 97.7 F 69 05/12/24 07:07 74 15 129/85 100 05/12/24 06:45 77 18 99 05/12/24 06:05 83 148/82 99 05/12/24 05:14 67 135/69 99 05/12/24 04:01 96.9 F 67 18 135/82 99 05/12/24 04:00 67 05/12/24 03:01 58 L 19 131/54 99 05/12/24 02:01 73 18 125/62 98 05/12/24 01:01 77 18 143/61 99 05/12/24 00:01 97.5 F 71 15 107/61 98 05/12/24 00:00 71 05/11/24 23:02 78 13 143/66 98 05/11/24 22:01 84 14 114/75 99 05/11/24 21:00 64 15 116/65 99 05/11/24 20:11 97.3 F 67 17 109/61 96 05/11/24 20:00 67 05/11/24 19:01 82 25 H 05/11/24 19:00 63 19 05/11/24 18:50 67 20 05/11/24 18:40 64 22 05/11/24 18:30 68 18 05/11/24 18:20 80 21 05/11/24 18:10 70 19 05/11/24 18:01 68 19 05/11/24 17:18 70 16 100 05/11/24 17:00 87 20 142/86 96 05/11/24 16:31 65 15 123/67 92 L 05/11/24 16:01 97.5 F 54 L 18 96/67 95 05/11/24 16:00 58 L Results - Labs Lab/Micro Results: Lab Results-Last 24 Hours 05/12/24 05/12/24 05/12/24 Range/Units 04:15 04:15 15:00 WBC 8.6 (4.23-9.07) x10^3/uL RBC 4.84 (4.63-6.08) x10^6/uL Hgb 15.0 (13.7-17.5) g/dL Hct 46.0 (40.1-51.0) % MCV 95.0 H (79.0-92.2) fL MCH 31.0 (25.7-32.2) pg MCHC 32.6 (32.3-36.5) g/dL RDW 13.9 (11.6-14.4) % Plt Count 430 H (163-337) x10^3/uL MPV 10.6 (9.4-12.4) fL Gran % 60.5 (34.0-67.9) % Immature Gran % (Auto) 0.2 (0.001-0.429) % Nucleat RBC Rel Count 0.0 (0.00-0.2) % Eos # (Auto) 0.24 (0.04-0.54) x10^3/uL Immature Gran # (Auto) 0.02 (0.001-0.031) x10^3u/L Absolute Lymphs (auto) 2.23 (1.32-3.57) x10^3/uL Absolute Monos (auto) 0.84 H (0.30-0.82) x10^3/uL Absolute Nucleated RBC 0.00 (0.00-0.012) x10^3u/L Lymphocytes % 25.8 (21.8-53.1) % Monocytes % 9.7 (5.3-12.2) % Eosinophils % 2.8 (0.8-7.0) % Basophils % 1.0 (0.2-1.2) % Absolute Granulocytes 5.21 (1.78-5.38) x10^3/uL Basophils # 0.09 H (0.01-0.08) x10^3/uL Sodium 138 (135-145) mmol/L Potassium 4.4 (3.5-5.1) mmol/L Chloride 107 (98-107) mmol/L Carbon Dioxide 26 (22-30) mmol/L Anion Gap 10.0 (5-15) MEQ/L BUN 13 (9-20) mg/dL Creatinine 1.22 (0.66-1.25) mg/dL Estimated GFR 64.6 ML/MIN Glucose 87 (74-106) mg/dL Calcium 8.1 L (8.4-10.2) mg/dL Total Bilirubin 0.70 (0.2-1.3) mg/dL AST 23 (17-59) U/L ALT 16 (0-50) U/L Alkaline Phosphatase 69 (38-126) U/L Troponin I < 0.012 (0.000-0.033) ng/mL Serum Total Protein 6.6 (6.3-8.2) g/dL Albumin 3.9 (3.5-5.0) g/dL - Radiology Impressions Radiology Exams & Impressions: Radiology Procedures Category Date Time Status HEAD WITHOUT CONTRAST [CT] Stat Exams 05/12/24 08:22 Completed MRI BRAIN W/O CONTRAST [MRI] Routine Exams 05/12/24 10:02 Completed
[2024-05-12] MEDS: LASIX 20 MG PO SCH (16:32)
[2024-05-12] MEDS: KEPPRA PO SCH (16:32)
[2024-05-12 16:35] VITALS: TEMP 98.2
[2024-05-12] MEDS: Docusate Sodium 100 MG PO PRN (17:45)
--- NOTE | 2024-05-12 18:18 | PCM.NOTE ---
Date and Time: 05/12/241807 Subjective Assessment: Left sided chest pain remains constant over the past week. Developed right sided chest pain today which of similar quality as the left. Chest pain on both sides are worse with palpation. Exam General:: alert and oriented x 4, no acute distress HEENT: EOMI Cardiovascular: s1 s2 (Normal), no murmurs,rubs,gallops, irregular, other (palpation of chest over both area of chest pain reproduces his symptoms.) Respiratory:: clear to auscultation benny Abdominal: active bowel sounds x 4 Extremity Exam: No edema Neurologic: appropriate affect, No motor deficits Objective Data Vital Signs: Vital Signs - 24 hr Temp Pulse Resp BP Pulse Ox 05/12/24 16:35 98.2 F 05/12/24 16:03 90 21 96 05/12/24 15:46 79 20 111/83 95 05/12/24 15:40 77 23 05/12/24 15:39 80 25 H 05/12/24 15:38 81 05/12/24 15:16 84 137/63 05/12/24 15:15 87 30 H 05/12/24 15:14 84 35 H 05/12/24 15:06 89 30 H 157/65 05/12/24 15:05 79 26 H 157/65 05/12/24 15:00 77 05/12/24 14:50 78 26 H 05/12/24 14:40 72 19 05/12/24 14:30 78 22 05/12/24 14:20 75 20 05/12/24 14:10 78 20 05/12/24 14:03 75 20 05/12/24 13:36 97.7 F 05/12/24 13:01 73 19 133/90 99 05/12/24 13:00 78 19 99 05/12/24 12:50 78 18 97 05/12/24 12:40 76 21 98 05/12/24 12:30 88 24 97 05/12/24 12:20 83 22 98 05/12/24 12:10 72 20 97 05/12/24 12:03 73 18 96 05/12/24 12:00 77 05/12/24 11:01 70 18 117/62 96 05/12/24 10:21 76 18 123/77 95 05/12/24 08:01 160/87 05/12/24 08:00 97.7 F 69 05/12/24 07:07 74 15 129/85 100 05/12/24 06:45 77 18 99 05/12/24 06:05 83 148/82 99 05/12/24 05:14 67 135/69 99 05/12/24 04:01 96.9 F 67 18 135/82 99 05/12/24 04:00 67 05/12/24 03:01 58 L 19 131/54 99 05/12/24 02:01 73 18 125/62 98 05/12/24 01:01 77 18 143/61 99 05/12/24 00:01 97.5 F 71 15 107/61 98 05/12/24 00:00 71 05/11/24 23:02 78 13 143/66 98 05/11/24 22:01 84 14 114/75 99 05/11/24 21:00 64 15 116/65 99 05/11/24 20:11 97.3 F 67 17 109/61 96 05/11/24 20:00 67 05/11/24 19:01 82 25 H 05/11/24 19:00 63 19 05/11/24 18:50 67 20 05/11/24 18:40 64 22 05/11/24 18:30 68 18 05/11/24 18:20 80 21 05/11/24 18:10 70 19 Pain Assessment - Last Documented Pain Intensity 8 Pain Scale Used 0-10 Pain Scale Intake and Output: Intake & Output 05/10/24 05/11/24 05/12/24 05/13/24 11:59 11:59 11:59 11:59 Intake Total 2221 2399 120 Output Total 1450 1750 200 Balance 771 649 -80 Weight 83.915 kg 83.915 kg 86.2 kg LAB: I have reviewed the Labs in [facility]. Troponin-I < 0.012 today. Second pending. Lab Results: Lab Results-Last 24 Hours 05/12/24 05/12/24 05/12/24 Range/Units 04:15 04:15 15:00 WBC 8.6 (4.23-9.07) x10^3/uL RBC 4.84 (4.63-6.08) x10^6/uL Hgb 15.0 (13.7-17.5) g/dL Hct 46.0 (40.1-51.0) % MCV 95.0 H (79.0-92.2) fL MCH 31.0 (25.7-32.2) pg MCHC 32.6 (32.3-36.5) g/dL RDW 13.9 (11.6-14.4) % Plt Count 430 H (163-337) x10^3/uL MPV 10.6 (9.4-12.4) fL Gran % 60.5 (34.0-67.9) % Immature Gran % (Auto) 0.2 (0.001-0.429) % Nucleat RBC Rel Count 0.0 (0.00-0.2) % Eos # (Auto) 0.24 (0.04-0.54) x10^3/uL Immature Gran # (Auto) 0.02 (0.001-0.031) x10^3u/L Absolute Lymphs (auto) 2.23 (1.32-3.57) x10^3/uL Absolute Monos (auto) 0.84 H (0.30-0.82) x10^3/uL Absolute Nucleated RBC 0.00 (0.00-0.012) x10^3u/L Lymphocytes % 25.8 (21.8-53.1) % Monocytes % 9.7 (5.3-12.2) % Eosinophils % 2.8 (0.8-7.0) % Basophils % 1.0 (0.2-1.2) % Absolute Granulocytes 5.21 (1.78-5.38) x10^3/uL Basophils # 0.09 H (0.01-0.08) x10^3/uL Sodium 138 (135-145) mmol/L Potassium 4.4 (3.5-5.1) mmol/L Chloride 107 (98-107) mmol/L Carbon Dioxide 26 (22-30) mmol/L Anion Gap 10.0 (5-15) MEQ/L BUN 13 (9-20) mg/dL Creatinine 1.22 (0.66-1.25) mg/dL Estimated GFR 64.6 ML/MIN Glucose 87 (74-106) mg/dL Calcium 8.1 L (8.4-10.2) mg/dL Total Bilirubin 0.70 (0.2-1.3) mg/dL AST 23 (17-59) U/L ALT 16 (0-50) U/L Alkaline Phosphatase 69 (38-126) U/L Troponin I < 0.012 (0.000-0.033) ng/mL Serum Total Protein 6.6 (6.3-8.2) g/dL Albumin 3.9 (3.5-5.0) g/dL Radiology Exams: Radiology Procedures Category Date Time Status HEAD WITHOUT CONTRAST [CT] Stat Exams 05/12/24 08:22 Completed MRI BRAIN W/O CONTRAST [MRI] Routine Exams 05/12/24 10:02 Completed MRI of Brain without contrast 05/12/2024: Atrophy, degenerative micro-ischemia, small remote right parietal infarct, and multiple remote bilateral basal ganglia lacunar infarcts. Findings concordant with same day CT exam. No acute intracranial abnormalities or evidence for evolving large vessel territorial stroke. Tracing 1 Attestation: I have reviewed this EKG and interpreted as documented below. EKG Narrative: See yesterday's notes. ECG 05/12/2024 x2: Normal sinus rhythm with frequent PVCs including couplets and 3-beat run of ventricular tachycardia at [address] and T wave abnormality, consider lateral ischemia. No significant change compared to priior ECGs. Telemetry 05/12/2024: 6 beat run of NSVT at 118 bpm. No additional pauses off metoprolol. Multi-Disciplinary Progress Notes: Multi-Disciplinary Progress Notes 05/12/24 09:17 Case Management Note by Elaina Kessler NO CHANGE IN DC PLANS - PATIENT STILL IN CUSTODY- PATIENT TO RETURN TO [facility] AT TIME OF DC Initialized on 05/12/24 09:17 - END OF NOTE Assessment & Plan (1) Bradycardia Current Visit: No Status: Acute Assessment & Plan: No additonal pauses off metoprolol. Follow-up with payroll administrative assistant. Comments as per yesterday's note. Code(s): R00.1 - BRADYCARDIA, UNSPECIFIED (2) Ventricular tachycardia Current Visit: Yes Status: Acute Assessment & Plan: Frequent PVCs as well as 3-6 beat runs of slow ventricular tachycardia. Majority appear to arise from a focus in the right ventricular outflow tract. Avoiding beta-blockers, diltiazem, and verapamil to reduce likelihood of a prolonged pause. Quantification of PVC burden with a 48 hour Holter monitor. Follow-up with an payroll administrative assistant. Case discussed with patient's state inspector, Dr. Martín Fuchs. Code(s): I47.20 - VENTRICULAR TACHYCARDIA, UNSPECIFIED (3) Chest pain Current Visit: No Status: Acute Assessment & Plan: Musculoskeletal by exam. Suspect new chest pain today was an attempt to avoid going back to long term. All troponins have been negative during this hospitalization. First troponin today was negative. If second troponin is also negative, then patient can be discharged from our facility. Treat with analgesics as needed. Code(s): R07.9 - CHEST PAIN, UNSPECIFIED - Encounter Encounter: "The entirety of this encounter was performed via Telemedicine using audio and visual " Permission granted by patient for this type of encounter. Case discussed with Kia Jasso NP. Parker Hunter MD [facility] [phone]
[2024-05-12 19:23] VITALS: BP 86/69; PULSE 74; RESP 27; O2SAT 94
[2024-05-12] MEDS ORDERED: KEPPRA PO SCH (22:00)
--- NOTE | 2024-05-13 05:59 | PCM.DS ---
Discharge Summary Date of Admission: 05/10/24 14:42 Date of Discharge: 05/13/24 Admitting Physician: MALKA TOMAS MD Consults: Consults on Case 05/10/24 15:05 Consult Cardiology STAT 05/12/24 11:10 Consult Neurology ROUTINE Primary Care Provider: STEWART KENDALL MD Allergies Allergies Penicillins Allergy (Verified 05/10/24 12:03) Hospital Summary - Hospital Course Hospital Course: Mr. Muñoz is a 68-year-old male with a pmhx of coronary artery disease, hypertension, hyperlipidemia, arrhythmia, and chronic obstructive pulmonary disease (COPD), currently incarcerated who presented to ED 05/10/24 with complaints of chest pain. At the assisted, he was noted to be somewhat reynoso and as hen, with a significantly elevated systolic blood pressure exceeding 200 mmHg. He was given his blood pressure medication, and upon arrival at the emergency department, his systolic blood pressure had decreased to the 130s. His oxygen saturation on room air was approximately 96%. The patient describes central, substernal chest pain that radiates to the left side of his neck and left shoulder. He is not the best historian. Dr. Fuchs is the patients speech language pathologist. IP he started having episodes of V-Tach. Pt moved to ICU and stat cardiology consult placed. CXR negative for acute concern. Trop x1 negative. He c/o nausea, SOB, and LUQ & RUQ abd. pain. UDS negative. Flu/COVID/RSV pending Pt on baseline 2lNC O2 at 96%. Cardiology consulted with initial recs for metoprolol 50mg bid - however patient became hypotensive on this dosing and was reduced to 12.5mg q6H. Cardiology then was re-consulted 05/11/24 with recommendations for patient to remain under observation overnight on tele- will discontinue beta elizabeth therapy. Monitor for any additional bouts of sinus pause/bradycardia - if none occur potential discharge 05/12 with op 48H holter monitor to quantitate PVC burden. If frequency is high enough to put patient at risk for a PVC induced cardiomyopathy, will need to consider an ablation at the RV outflow tract site of origin. An EP study can be performed to determine if a pacemaker is indicated for problem #1. If a pacemaker is indicated, a repeat echo can be repeated to determine if an ICD should be placed (based on LV function if EF is 30% or lower). Patient should be referred to an office support specialist post discharge. Patient's speech language pathologist Dr. Fuchs notified and agrees with plan. Patient with complaints of new memory loss and confusion 05/12/24 - CT head showing Progressive worsening multifocal bilateral basal ganglia lacunar infarcts. Also new remote infarct left caudate head. No acute intracranial abnormalities. MRI Atrophy, degenerative micro-ischemia, small remote right parietal infarct, and multiple remote bilateral basal ganglia lacunar infarcts. Findings concordant with same day CT exam. No acute intracranial abnormalities or evidence for evolving large vessel territorial stroke. Neurology consulted - recommendations for OP EEG which patient is already set up for from previous hospital stay. Continue current antiplatelet and anticoagulation regimen. No further neurology recommendation at this time period. Patient has been cleared by neurology. Prior to discharge patient Developed right sided chest pain today which of similar quality as the left. Chest pain on both sides are worse with palpation.- cardiology re-consulted. ECG 05/12/2024 x2: Normal sinus rhythm with frequent PVCs including couplets and 3-beat run of ventricular tachycardia at [address] and T wave abnormality, consider lateral ischemia. No significant change compared to priior ECGs. Troponins x 2 negative. Patient has been cleared by cardiology with 48 hour holter monitor placed on discharge. He is to follow up with cardio EP as op. He has been cleared by cardiology for discharge. Discharge Note New Diagnosis: Bradycardia/Vtach/CP/confusion New Medications:none - discontinue metoprolol Follow Up: Cardiology Outpatient testing to order: Holter monitor - 48 hours - placed on pt at discharge I spent 35 minutes [id number] with the patient on the day of discharge performing discharge exam, discussing hospital stay and discharge instructions with patient and caregivers, preparation of discharge records, prescriptions & referral forms and addressing any questions/concerns the patient had as documented above. - Vitals & Intake/Output Vital Signs: Vital Signs Temperature 98.2 F 05/12/24 16:35 Pulse Rate 74 05/12/24 19:20 Respiratory Rate 27 H 05/12/24 19:20 Blood Pressure 86/69 05/12/24 18:03 O2 Sat by Pulse Oximetry 94 L 05/12/24 19:20 Intake & Output: Intake & Output 05/10/24 05/11/24 05/12/24 05/13/24 11:59 11:59 11:59 11:59 Intake Total 7643 4779 946 Output Total 5119 3110 200 Balance 771 649 746 Weight 83.915 kg 83.915 kg 86.2 kg - Lab Result Diagrams: 05/12/24 04:15 05/12/24 04:15 Lab Results-Last 24 Hrs: Lab Results-Last 24 Hours 05/12/24 05/12/24 Range/Units 15:00 18:10 Troponin I < 0.012 < 0.012 (0.000-0.033) ng/mL - Radiology Exams Ordered Rad Exams-Entire Visit: Radiology Procedures Category Date Time Status HEAD WITHOUT CONTRAST [CT] Stat Exams 05/12/24 08:22 Completed MRI BRAIN W/O CONTRAST [MRI] Routine Exams 05/12/24 10:02 Completed - Procedures and Test Procedures and Tests throughout Hospitalization: Therapy Orders & Screens 05/10/24 14:52 EKG REPEAT IN AM Comment: Respiratory Therapy Consult ONCE Comment: Reason For Exam: 05/10/24 21:14 Respiratory Therapy Assessment DAILY Comment: Diagnosis: Chest pain 05/10/24 21:15 Oxygen Nasal Cannula 2 lpm Comment: Diagnosis: Chest pain 05/12/24 14:44 EKG ROUTINE Comment: Diagnosis: Chest pain EKG Reason: Chest Pain 05/12/24 19:37 Holter Monitor ONCE Comment: Reason For Exam: Diagnosis: Chest pain Final Diagnosis/Problem List - Final Discharge Diagnosis/Problem (1) Chest pain Status: Acute Code(s): R07.9 - CHEST PAIN, UNSPECIFIED (2) Leukocytosis Status: Resolved Code(s): D72.829 - ELEVATED WHITE BLOOD CELL COUNT, UNSPECIFIED (3) Ventricular tachycardia Status: Acute Code(s): I47.20 - VENTRICULAR TACHYCARDIA, UNSPECIFIED (4) COPD (chronic obstructive pulmonary disease) Status: Acute (5) Hypertension Status: Chronic Code(s): I10 - ESSENTIAL (PRIMARY) HYPERTENSION - Discharge Discharge Date: 05/13/24 (Patient incarcerated will reture to assisted) Disposition: Home, Self-Care Condition: Stable Prescriptions: Continue Atorvastatin Calcium 80 mg PO DAILY Rivaroxaban [Xarelto] 20 mg PO 1600 Ranolazine 500 MG [Ranexa 500 MG] 500 mg PO BID Clopidogrel Bisulfate [Clopidogrel] 75 mg PO DAILY lisinopriL [Zestril] 2.5 mg PO QAM Furosemide 20 mg [Lasix 20 mg] 20 mg PO DAILY Levetiracetam [Keppra] 500 mg PO BID Instructions: Angina Additional Instructions: Stop taking metoprolol. 48 hour Holter monitor will be placed at [facility]. You will need an EEG outpatient. You will need to followup with your speech language pathologist to determine if you need a pacemaker, pacemaker/defibrillator, or an ablation for frequent PVCs. Your speech language pathologist may refer you to an office support specialist. You will need an echocardiogram outpatient.
== END 2024-05-12 20:25 | disposition home or self-care (01) ==
LOC: ED 11:34 → MED SURG 14:42 → ICU 15:10
PROVIDERS: ADMIT Internal Medicine; ATTEND Internal Medicine
DX: R07.9 Chest pain, unspecified (principal); Z59.10 Inadequate housing, unspecified; Z59.82 Transportation insecurity; I49.8 Other specified cardiac arrhythmias; I10 Essential (primary) hypertension; D72.829 Elevated white blood cell count, unspecified; I47.20 Ventricular tachycardia, unspecified; F17.200 Nicotine dependence, unspecified, uncomplicated; I48.91 Unspecified atrial fibrillation; J44.9 Chronic obstructive pulmonary disease, unspecified; E78.5 Hyperlipidemia, unspecified; Z79.01 Long term (current) use of anticoagulants; Z79.899 Other long term (current) drug therapy; Z86.73 Personal history of transient ischemic attack (TIA), and cerebral infarction without residual deficits
CPT/HCPCS: 0241U; 36415; 70450; 70551; 71045; 80053; 80307; 81001; 83735; 83880; 84484; 85025; 85610; 93005; 93041; 93225; 94760; 99285; Q3014; 93268; A9270-GY; G0378

== ENCOUNTER 2024-05-13 18:11 | Observation (INO) | payer MEDICARE, OTHER ==
[2024-05-13] MEDS ORDERED: MAGNESIUM SULF 2 G/50 ML BAG 2 GM/50 ML PIGGYBACK IV ONE (18:35)
[2024-05-13] MEDS: MAGNESIUM SULF 2 G/50 ML BAG 2 GM/50 ML PIGGYBACK IV ONE (18:36)
[2024-05-13 18:39] LABS: Absolute Neutrophil Ct (ANC) 9.38 x10^3/uL (1.78-5.38); BASOPHIL % 0.7 % (0.2-1.2); Basophil (Absolute #) 0.09 x10^3/uL (0.01-0.08); Eosinophil % 1.9 % (0.8-7.0); Eosinophil (Absolute #) 0.24 x10^3/uL (0.04-0.54); Hemoglobin 15.1 g/dL (13.7-17.5); IMMATURE GRAN # 0.04 x10^3u/L (0.001-0.031); IMMATURE GRAN % 0.3 % (0.001-0.429); Lymphocytes % 15.5 % (21.8-53.1); Mean Cell Volume 91.5 fL (79.0-92.2); Mean Corpuscular Hemoglobin 30.7 pg (25.7-32.2); Mean Corpuscular Hgb Concent. 33.6 g/dL (32.3-36.5); Mean Platelet Volume 10.2 fL (9.4-12.4); Monocyte (Absolute #) 1.19 x10^3/uL (0.30-0.82); Monocytes % 9.2 % (5.3-12.2); Neutrophil % 72.4 % (34.0-67.9); Platelet Count 427 x10^3/uL (163-337); Red Blood Count 4.92 x10^6/uL (4.63-6.08); Red Cell Distribution Width 13.7 % (11.6-14.4); White Blood Count 12.9 x10^3/uL (4.23-9.07)
[2024-05-13] MEDS ORDERED: Zofran 4 MG/2 ML VIAL ONE (18:40)
[2024-05-13] MEDS ORDERED: SUBLIMAZE 100 MCG/2 ML ONE (18:41)
[2024-05-13] MEDS: Zofran 4 MG/2 ML VIAL IV ONE (18:42)
[2024-05-13] MEDS: SUBLIMAZE 100 MCG/2 ML IV ONE (18:42)
[2024-05-13 19:14] LABS: ALBUMIN 4.2 g/dL (3.5-5.0); ANION GAP 13.1 MEQ/L (5-15); BILIRUBIN,TOTAL 0.8 mg/dL (0.2-1.3); Creatinine 1 1.14 mg/dL (0.66-1.25); EST GLOMERULAR FILTRATION RATE 70.1 ML/MIN; Potassium 4.5 mmol/L (3.5-5.1); Total Protein 7.2 g/dL (6.3-8.2)
--- NOTE | 2024-05-13 19:27 | ERPHSYRPT ---
- History of Present Illness Time Seen by Provider: 05/13/24 18:21 Historian: patient, EMS, police Exam Limitations: no limitations Patient Subjective Stated Complaint: CHEST PAIN Triage Nursing Assessment: Pt brought to the ER by EMS from the [facility], pt was just released from [facility] last night for the same problem, hypertensive, tachypnic, rates pain as 9/10, pt is running bigemeny, couplets, and v-tach, pt is wearing a holter monitor, pulses abnormal, skin n/w/d, nausea, denies vomiting Physician History: 68 years old male with history of hypertension, hyperlipidemia, diabetes mellitus, coronary artery disease with stenting, atrial fibrillation on Xarelto, on nonsustained V. tach who was recently admitted for multiple PVCs, NSVT and chest pain, was evaluated by hospitalist and cardiology, was discharged y day presented back with substernal chest pain 10/10 intensity since noon, no significant aggravating or relieving factors. Reports some shortness of breath because of pain. No fever or chills reported. Has mild nonproductive cough. Patient has bigeminy on presentation. He is given 2 g of magnesium. Aspirin Treatment Today: unknown Allergies/Adverse Reactions: Penicillins Allergy (Verified 05/13/24 18:23) Home Medications: Atorvastatin Calcium 80 mg PO DAILY 09/22/23 [History] Clopidogrel Bisulfate [Clopidogrel] 75 mg PO DAILY 05/10/24 [History] Ranolazine 500 MG [Ranexa 500 MG] 500 mg PO BID 05/10/24 [History] Rivaroxaban [Xarelto] 20 mg PO 1600 05/10/24 [History] Furosemide 20 mg [Lasix 20 mg] 20 mg PO DAILY 05/12/24 [History] Levetiracetam [Keppra] 500 mg PO BID 05/12/24 [History] lisinopriL [Zestril] 2.5 mg PO QAM 05/12/24 [History] Hx Tetanus, Diphtheria Vaccination/Date Given: Yes Hx Influenza Vaccination/Date Given: No Hx Pneumococcal Vaccination/Date Given: No Travel Risk - International Travel Have you traveled outside of the country in past 3 weeks: No - Emerging Infectious Disease Are you exhibiting symptoms associated with any current EIDs: Yes Symptoms: Shortness of Breath - Review of Systems Constitutional: No Symptoms Eyes: No Symptoms Ears, Nose, & Throat: No Symptoms Respiratory: Cough, Dyspnea Cardiac: Chest Pain Abdominal/Gastrointestinal: No Symptoms Genitourinary Symptoms: No Symptoms Skin: No Symptoms Neurological: No Symptoms Endocrine: No Symptoms Hematologic/Lymphatic: No Symptoms - Past Medical History Pertinent Past Medical History: Yes Neurological History: Stroke ENT History: No Pertinent History Cardiac History: Arrhythmia, High Cholesterol, Hypertension Respiratory History: Asthma, COPD, Pneumonia Endocrine Medical History: No Pertinent History Musculoskeletal History: Arthritis, Fractures GI Medical History: No Pertinent History History: No Pertinent History Psycho-Social History: No Pertinent History Male Reproductive Disorders: No Pertinent History Other Medical History: pt is a poor historian, and unsure. Completed to best of ability. - Past Surgical History Past Surgical History: Yes Neuro Surgical History: No Pertinent History Cardiac: No Pertinent History Respiratory: No Pertinent History Gastrointestinal: No Pertinent History Genitourinary: No Pertinent History Musculoskeletal: No Pertinent History Male Surgical History: No Pertinent History Other Surgical History: SPLEEN REMOVED-several years ago Significant Family History: no pertinent family hx - Social History Smoking Status: Current some day smoker How long have you smoked: YRS Exposure to second hand smoke: Yes Drug Use: none - Social Determinants of Health Will the patient participate in the screening: Yes Do you worry about a steady place to live?: No Do you have any problems with any of the following?: No known problems In the past 12 months,have you had to go without utilities?: No Transportation Issues: No Has anyone in your support network made you feel unsafe?: No Have you or anyone in your house had to go w/o enough food: No Comment: INCARCERATED - Nursing Vital Signs Nursing Vital Signs: Initial Vital Signs Temperature 98.8 F 05/13/24 18:15 Pulse Rate 91 H 05/13/24 18:15 Blood Pressure 148/98 05/13/24 18:15 O2 Sat by Pulse Oximetry 98 05/13/24 18:15 Pain Scale Pain Intensity 0 - Physical Exam General Appearance: no apparent distress, alert Eye Exam: PERRL/EOMI Ears, Nose, Throat Exam: normal ENT inspection Neck Exam: normal inspection, supple, full range of motion Respiratory Exam: normal breath sounds, lungs clear Cardiovascular Exam: regular rate/rhythm, normal heart sounds Gastrointestinal/Abdomen Exam: soft, normal bowel sounds, No tenderness Back Exam: normal inspection, normal range of motion Extremity Exam: normal inspection, normal range of motion Neurologic Exam: alert, oriented x 3, cooperative Skin Exam: normal color SpO2 Interpretation: normal SpO2: 93 O2 Delivery: Room Air - Course EKG Interpreted by Me: RATE (92), Sinus Rhythm, Other (Ventricular bigeminy, short KS interval, nonspecific ST and T wave changes, normal axis) Ordered Tests: Active Orders 24 hr Category Date Time Status Bedrest ROUTINE Activity 05/13/24 23:36 Active Up With Assistance ROUTINE Activity 05/13/24 23:36 Active Call Admit Doctor for Orders ON ADMISSION Care 05/13/24 23:36 Active Petroleum Inspector STAT Care 05/13/24 18:34 Completed Code Status Order ROUTINE Care 05/13/24 23:36 Active EKG-ER Only STAT Care 05/13/24 18:34 Completed Fall Protocol Q1H Care 05/13/24 23:36 Active IV Insertion STAT Care 05/13/24 18:[address] in Observation ROUTINE Care 05/13/24 23:36 Active Telemetry q6h Care 05/13/24 23:36 Active Heart-Healthy Diet Diet 05/14/24 Breakfast Active CHEST 1 VIEW (PORTABLE) Stat Exams 05/13/24 18:34 Completed CBC W DIFF Stat Lab 05/13/24 18:30 Completed CMP Stat Lab 05/13/24 18:30 Completed NT PRO BNPII Stat Lab 05/13/24 18:30 Completed TROPONIN Q4H Lab 05/13/24 18:30 Completed TROPONIN Q4H Lab 05/13/24 23:09 Completed TROPONIN Q4H Lab 05/14/24 02:45 Ordered Pulse Oximetry CONTINUOUS RT 05/13/24 23:36 Active Respiratory Therapy Consult ROUTINE RT 05/13/24 23:36 Active Transfer Order Routine Transfer 05/13/24 Completed Medication Summary Generic Name Dose Route Start Last Admin Trade Name Freq PRN Reason Stop Dose Admin Acetaminophen 325 mg 05/13/24 23:56 Acetaminophen 325 Mg Tablet PO 06/12/24 23:55 Q4H PRN PRN PAIN, FEVER, HEADACHE Albuterol/Ipratropium 3 ml 05/13/24 23:56 Ipratropium/Albuterol Sulfate 3 Ml Ampul.Neb IH 06/12/24 23:55 Q6HRT PRN SHORTNESS OF BREATH/WHEEZING Clopidogrel Bisulfate 75 mg 05/14/24 10:00 Clopidogrel Bisulfate 75 Mg Tablet PO 06/13/24 09:59 DAILY [facility] Furosemide 20 mg 05/14/24 10:00 Furosemide 20 Mg Tablet PO 06/13/24 09:59 DAILY [facility] Hydromorphone HCl 0.5 mg 05/14/24 00:03 Hydromorphone 1 Mg/1ml Inj IV 05/19/24 00:02 Q4H PRN PRN PAIN Levetiracetam 500 mg 05/14/24 10:00 Levetiracetam 500 Mg Tablet PO 06/13/24 09:59 BID [facility] Metoprolol Tartrate 12.5 mg 05/14/24 10:00 Metoprolol Tartrate 25 Mg Tab PO 06/13/24 09:59 BID [facility] Non-Formulary Medication 80 mg 05/14/24 10:00 Atorvastatin Calcium [Atorvastatin Calcium] PO 06/13/24 09:59 DAILY [facility] Non-Formulary Medication 20 mg 05/14/24 16:00 Rivaroxaban [Xarelto] PO 06/13/24 15:59 1600 [facility] Non-Formulary Medication 2.5 mg 05/14/24 10:00 Lisinopril [Zestril] PO 06/13/24 09:59 QAM [facility] Ondansetron HCl 4 mg 05/13/24 23:56 Ondansetron Hcl 4 Mg/2 Ml Vial IV 06/12/24 23:55 Q6H PRN PRN NAUSEA/VOMITING Pantoprazole Sodium 40 mg 05/14/24 10:00 Protonix (Pantoprazole) 40 Mg Tablet PO 06/13/24 09:59 DAILY [facility] Ranolazine 500 mg 05/14/24 10:00 Ranolazine 500 Mg Tab.Sr.12h PO 06/13/24 09:59 BID [facility] Discontinued Medications Generic Name Dose Route Start Last Admin Trade Name Freq PRN Reason Stop Dose Admin Fentanyl Citrate 50 mcg 05/13/24 18:34 05/13/24 18:42 Fentanyl Citrate 100 Mcg/2 Ml* Vial IV 05/13/24 18:35 50 mcg STAT ONE Administration Fentanyl Citrate Confirm 05/13/24 18:41 Fentanyl Citrate 100 Mcg/2 Ml* Vial Administered 05/13/24 18:42 Dose 100 mcg .ROUTE .STK-MED ONE Magnesium Sulfate/Water 2 gm in 50 mls @ 100 mls/hr 05/13/24 18:26 05/13/24 18:36 Magnesium Sulf 2 G/50 Ml Bag IV 05/13/24 18:55 100 mls/hr ONCE ONE Administration Magnesium Sulfate/Water Confirm 05/13/24 18:35 Magnesium Sulf 2 G/50 Ml Bag Administered 05/13/24 18:36 Dose 2 gm in 50 mls @ ud IV .STK-MED ONE Ondansetron HCl 4 mg 05/13/24 18:34 05/13/24 18:42 Ondansetron Hcl 4 Mg/2 Ml Vial IV 05/13/24 18:35 4 mg STAT ONE Administration Ondansetron HCl Confirm 05/13/24 18:40 Ondansetron Hcl 4 Mg/2 Ml Vial Administered 05/13/24 18:41 Dose 4 mg .ROUTE .STK-MED ONE Lab/Rad Data: Laboratory Result Diagrams 05/13/24 18:30 05/13/24 18:30 Laboratory Results 05/13/24 05/13/24 05/13/24 Range/Units 23:09 18:30 18:30 WBC (4.23-9.07) x10^3/uL RBC (4.63-6.08) x10^6/uL Hgb (13.7-17.5) g/dL Hct (40.1-51.0) % MCV (79.0-92.2) fL MCH (25.7-32.2) pg MCHC (32.3-36.5) g/dL RDW (11.6-14.4) % Plt Count (163-337) x10^3/uL MPV (9.4-12.4) fL Gran % (34.0-67.9) % Immature Gran % (Auto) (0.001-0.429) % Nucleat RBC Rel Count (0.00-0.2) % Eos # (Auto) (0.04-0.54) x10^3/uL Immature Gran # (Auto) (0.001-0.031) x10^3u/L Absolute Lymphs (auto) (1.32-3.57) x10^3/uL Absolute Monos (auto) (0.30-0.82) x10^3/uL Absolute Nucleated RBC (0.00-0.012) x10^3u/L Lymphocytes % (21.8-53.1) % Monocytes % (5.3-12.2) % Eosinophils % (0.8-7.0) % Basophils % (0.2-1.2) % Absolute Granulocytes (1.78-5.38) x10^3/uL Basophils # (0.01-0.08) x10^3/uL Sodium 140 (135-145) mmol/L Potassium 4.5 (3.5-5.1) mmol/L Chloride 106 (98-107) mmol/L Carbon Dioxide 25 (22-30) mmol/L Anion Gap 13.1 (5-15) MEQ/L BUN 19 (9-20) mg/dL Creatinine 1.14 (0.66-1.25) mg/dL Estimated GFR 70.1 ML/MIN Glucose 111 H (74-106) mg/dL Calcium 9.0 (8.4-10.2) mg/dL Total Bilirubin 0.80 (0.2-1.3) mg/dL AST 43 (17-59) U/L ALT 39 (0-50) U/L Alkaline Phosphatase 73 (38-126) U/L Troponin I 0.015 0.015 (0.000-0.033) ng/mL NT-Pro-B Natriuret Pep 404 (<300) pg/mL Serum Total Protein 7.2 (6.3-8.2) g/dL Albumin 4.2 (3.5-5.0) g/dL 05/13/24 Range/Units 18:30 WBC 12.9 H (4.23-9.07) x10^3/uL RBC 4.92 (4.63-6.08) x10^6/uL Hgb 15.1 (13.7-17.5) g/dL Hct 45.0 (40.1-51.0) % MCV 91.5 (79.0-92.2) fL MCH 30.7 (25.7-32.2) pg MCHC 33.6 (32.3-36.5) g/dL RDW 13.7 (11.6-14.4) % Plt Count 427 H (163-337) x10^3/uL MPV 10.2 (9.4-12.4) fL Gran % 72.4 H (34.0-67.9) % Immature Gran % (Auto) 0.3 (0.001-0.429) % Nucleat RBC Rel Count 0.0 (0.00-0.2) % Eos # (Auto) 0.24 (0.04-0.54) x10^3/uL Immature Gran # (Auto) 0.04 H (0.001-0.031) x10^3u/L Absolute Lymphs (auto) 2.00 (1.32-3.57) x10^3/uL Absolute Monos (auto) 1.19 H (0.30-0.82) x10^3/uL Absolute Nucleated RBC 0.00 (0.00-0.012) x10^3u/L Lymphocytes % 15.5 L (21.8-53.1) % Monocytes % 9.2 (5.3-12.2) % Eosinophils % 1.9 (0.8-7.0) % Basophils % 0.7 (0.2-1.2) % Absolute Granulocytes 9.38 H (1.78-5.38) x10^3/uL Basophils # 0.09 H (0.01-0.08) x10^3/uL Sodium (135-145) mmol/L Potassium (3.5-5.1) mmol/L Chloride (98-107) mmol/L Carbon Dioxide (22-30) mmol/L Anion Gap (5-15) MEQ/L BUN (9-20) mg/dL Creatinine (0.66-1.25) mg/dL Estimated GFR ML/MIN Glucose (74-106) mg/dL Calcium (8.4-10.2) mg/dL Total Bilirubin (0.2-1.3) mg/dL AST (17-59) U/L ALT (0-50) U/L Alkaline Phosphatase (38-126) U/L Troponin I (0.000-0.033) ng/mL NT-Pro-B Natriuret Pep (<300) pg/mL Serum Total Protein (6.3-8.2) g/dL Albumin (3.5-5.0) g/dL - Progress Progress: improved, re-examined Air Movement: good Progress Note: 05/13/24 23:37 68 years old with multiple medical problems including CAD with stenting, atrial fibrillation on Xarelto, nonsustained VT, bigeminy/PVCs is evaluated in the ER for chest pain. EKG is sinus rhythm with bigeminy and no obvious ST elevations. He is given symptomatic treatment for pain, on reevaluation is feeling better. He is also given 2 g of mag. Patient has 3-4 beats of VT slow at rate in low 100s. Normal white count, chemistries fairly unremarkable and negative troponins. Chest x-ray is negative for any acute cardiopulmonary findings reviewed by me, official report is pending. I have discussed with Dr. Almazan, recommended transfer to facility with the EP cardiology services. No EP cardiology services are available in [place], I have discussed with Dr. Silverman [facility] and Dr. Anival Mariscal cardiology, both recommended that patient is not a candidate for pacemaker placement as of now and may possibly needs ablation for PVCs which they do outpatient and patient does have appointment with Dr. Gutiérrez on May 15 at 2 PM. They recommended starting patient on low-dose beta-elizabeth metoprolol 12.5 and see if patient tolerates that without significant gap/bradycardia and it can be increased to 25 tomorrow and patient can follow-up outpatient. On reevaluation patient pain is improved. I have discussed with Dr. Almazan again, shared the recommendations of cardiology and agreed with admission. I have shared the results of workup with patient and plan of admission which she understands and agrees. Blood Culture(s) Obtained: No Antibiotics given: No Discussed with DrRno: Other [facility], Dr. Silverman cardiology [facility]) Counseled pt/family regarding: lab results, diagnosis, need for follow-up, rad results Medical Desision Making - Independent Historian Additional History obtained from: [employer]/EMT - Discussion of managment Care discussed with:: specialist (Cardiology Dr. Florian and Dr. Silverman, hospitalist Dr. Almazan) Reviewed:: Test results Agreed on:: Treatment plan, need for follow-up Will see patient: in hospital - Diagnostic Testing Diagnostic test were ordered, analyzed, and reviewed by me: Yes Radiological Interpretation: Interpreted by me, Reviewed by me - Risk of complications The pt has a mod risk of morbidity or mortality based on: Need for prescription drug management The pt has a high risk of morbidity or mortality based on: Decision regarding hospitilization or escalation of hosp level of care - Departure Departure Disposition: Observation Clinical Impression: NSVT (nonsustained ventricular tachycardia), Chest pain, rule out acute myocardial infarction, Bigeminy Condition: Stable Critical Care Time: No
--- NOTE | 2024-05-13 23:43 | XRAY ---
Indication: Chest pain. Comparison: May 10, 2024 Portable apical lordotic chest unchanged again hyperinflated and clear with incidental right lung calcified granuloma and mild left hemidiaphragm elevation. Heart not enlarged again with tortuous descending aorta. Bony thorax intact with osteopenia, mild degenerative changes, and old left rib fractures. Impression: Continued nonacute chest with chronic features.
--- NOTE | 2024-05-13 23:48 | PCM.HP ---
History of Present Illness - Chief Complaint Chief Complaint: palpitations Date: 05/13/24 History of Present Illness: Mr. LEUNG is a 68 year old male with a past medical history significant for hypertension, hyperlipidemia, COPD and previous admission for chest pain, palpitations/SVTs who was discharged on a Holter monitor with scheduled follow up with electrophysiology on 05/15 who returns to the hospital with worsening chest pain with palpitations and found to be in bigeminy. He was considered for transfer but no beds were available, so discussion was obtained with and [facility] cardiology who recommended admission to the hospital for initiation with beta blockers to be titrated up, then follow up with Dr. Gutiérrez for EPS eval as outpatient. He was given some IV pain meds and is currently seen via telehealth. No fever/chills. No shortness of breath. No nausea, vomiting or diarrhea. No dysuria, hematuria or urgency. - Review of Systems Constitutional: No Fever Eyes: No Vision Changes Ears, Nose, & Throat: No Sinus Drainage Respiratory: No Cough, No Orthopnea, No Short Of Breath Cardiac: Palpitations Abdominal/Gastrointestinal: No Abdominal Pain, No Nausea, No Vomiting, No Diarrhea Genitourinary Symptoms: No Frequency, No Hematuria Musculoskeletal: No Back Pain, No Neck Pain Skin: No Rash Neurological: No Headache Psychological: No Suicidal Ideations Endocrine: No Polyuria, No Polydipsia Hematologic/Lymphatic: No Blood Clots Medications & Allergies Home Medications: Home Medication List Atorvastatin Calcium 80 mg PO DAILY 09/22/23 [History Confirmed 05/13/24] Clopidogrel Bisulfate [Clopidogrel] 75 mg PO DAILY 05/10/24 [History Confirmed 05/13/24] Ranolazine 500 MG [Ranexa 500 MG] 500 mg PO BID 05/10/24 [History Confirmed 05/13/24] Rivaroxaban [Xarelto] 20 mg PO 1600 05/10/24 [History Confirmed 05/13/24] Furosemide 20 mg [Lasix 20 mg] 20 mg PO DAILY 05/12/24 [History Confirmed 05/13/24] Levetiracetam [Keppra] 500 mg PO BID 05/12/24 [History Confirmed 05/13/24] lisinopriL [Zestril] 2.5 mg PO QAM 05/12/24 [History Confirmed 05/13/24] Allergies/Adverse Reactions: Allergies Allergy/AdvReac Type Severity Reaction Status Date / Time Penicillins Allergy Verified 05/13/24 18:23 - Past Medical History Past Medical History: Yes Neurological History: Stroke ENT History: No Pertinent History Cardiac History: Arrhythmia, High Cholesterol, Hypertension Respiratory History: Asthma, COPD, Pneumonia Endocrine Medical History: No Pertinent History Musculoskelatal History: Arthritis, Fractures GI Medical History: No Pertinent History History: No Pertinent History Pyscho-Social History: No Pertinent History Male Reproductive Disorders: No Pertinent History Comment: pt is a poor historian, and unsure. Completed to best of ability. - Past Surgical History Past Surgical History: Yes Neuro Surgical History: No Pertinent History Cardiac History: No Pertinent History Respiratory Surgery: No Pertinent History GI Surgical History: No Pertinent History Genitourinary Surgical Hx: No Pertinent History Musculskeletal Surgical Hx: No Pertinent History Male Surgical History: No Pertinent History Other Surgical History: SPLEEN REMOVED-several years ago Significant Family History: no pertinent family hx - Social History Smoking Status: Current some day smoker How long have you smoked: YRS Exposure to second hand smoke: Yes Alcohol: None Drug Use: none - Social Determinants of Health Will the patient participate in the screening: Yes Do you worry about a steady place to live?: No Do you have any problems with any of the following?: No known problems In the past 12 months,have you had to go without utilities?: No Have you or anyone in your house had to go without enough: No Transportation Issues: No Has anyone in your support network made you feel unsafe?: No Does the patient want assistance with any of the above?: No Comment: INCARCERATED - Physical Exam Vital Signs: Vital Signs - 24 hr Temp Pulse Resp BP BP Pulse Ox 05/13/24 23:42 93 L 05/13/24 23:10 76 18 120/61 96 05/13/24 22:31 75 19 150/60 93 L 05/13/24 22:01 79 20 143/77 94 L 05/13/24 22:00 83 17 98 05/13/24 21:50 79 23 96 05/13/24 21:40 78 21 97 05/13/24 21:33 83 21 96 05/13/24 21:11 78 19 164/82 98 05/13/24 21:10 78 20 99 05/13/24 21:03 77 21 98 05/13/24 20:31 76 24 121/64 98 05/13/24 20:05 75 17 139/81 100 05/13/24 20:04 70 18 99 05/13/24 20:00 71 18 97 05/13/24 19:50 82 17 97 05/13/24 19:40 79 16 96 05/13/24 19:33 77 16 95 05/13/24 19:01 79 18 166/71 93 L 05/13/24 18:33 84 26 H 129/81 99 05/13/24 18:19 88 24 148/98 98 05/13/24 18:15 98.8 F 91 H 148/98 98 Results - Labs Lab/Micro Results: Lab Results-Last 24 Hours 05/13/24 05/13/24 05/13/24 Range/Units 18:30 18:30 18:30 WBC 12.9 H (4.23-9.07) x10^3/uL RBC 4.92 (4.63-6.08) x10^6/uL Hgb 15.1 (13.7-17.5) g/dL Hct 45.0 (40.1-51.0) % MCV 91.5 (79.0-92.2) fL MCH 30.7 (25.7-32.2) pg MCHC 33.6 (32.3-36.5) g/dL RDW 13.7 (11.6-14.4) % Plt Count 427 H (163-337) x10^3/uL MPV 10.2 (9.4-12.4) fL Gran % 72.4 H (34.0-67.9) % Immature Gran % (Auto) 0.3 (0.001-0.429) % Nucleat RBC Rel Count 0.0 (0.00-0.2) % Eos # (Auto) 0.24 (0.04-0.54) x10^3/uL Immature Gran # (Auto) 0.04 H (0.001-0.031) x10^3u/L Absolute Lymphs (auto) 2.00 (1.32-3.57) x10^3/uL Absolute Monos (auto) 1.19 H (0.30-0.82) x10^3/uL Absolute Nucleated RBC 0.00 (0.00-0.012) x10^3u/L Lymphocytes % 15.5 L (21.8-53.1) % Monocytes % 9.2 (5.3-12.2) % Eosinophils % 1.9 (0.8-7.0) % Basophils % 0.7 (0.2-1.2) % Absolute Granulocytes 9.38 H (1.78-5.38) x10^3/uL Basophils # 0.09 H (0.01-0.08) x10^3/uL Sodium 140 (135-145) mmol/L Potassium 4.5 (3.5-5.1) mmol/L Chloride 106 (98-107) mmol/L Carbon Dioxide 25 (22-30) mmol/L Anion Gap 13.1 (5-15) MEQ/L BUN 19 (9-20) mg/dL Creatinine 1.14 (0.66-1.25) mg/dL Estimated GFR 70.1 ML/MIN Glucose 111 H (74-106) mg/dL Calcium 9.0 (8.4-10.2) mg/dL Total Bilirubin 0.80 (0.2-1.3) mg/dL AST 43 (17-59) U/L ALT 39 (0-50) U/L Alkaline Phosphatase 73 (38-126) U/L Troponin I 0.015 (0.000-0.033) ng/mL NT-Pro-B Natriuret Pep 404 (<300) pg/mL Serum Total Protein 7.2 (6.3-8.2) g/dL Albumin 4.2 (3.5-5.0) g/dL 05/13/24 Range/Units 23:09 WBC (4.23-9.07) x10^3/uL RBC (4.63-6.08) x10^6/uL Hgb (13.7-17.5) g/dL Hct (40.1-51.0) % MCV (79.0-92.2) fL MCH (25.7-32.2) pg MCHC (32.3-36.5) g/dL RDW (11.6-14.4) % Plt Count (163-337) x10^3/uL MPV (9.4-12.4) fL Gran % (34.0-67.9) % Immature Gran % (Auto) (0.001-0.429) % Nucleat RBC Rel Count (0.00-0.2) % Eos # (Auto) (0.04-0.54) x10^3/uL Immature Gran # (Auto) (0.001-0.031) x10^3u/L Absolute Lymphs (auto) (1.32-3.57) x10^3/uL Absolute Monos (auto) (0.30-0.82) x10^3/uL Absolute Nucleated RBC (0.00-0.012) x10^3u/L Lymphocytes % (21.8-53.1) % Monocytes % (5.3-12.2) % Eosinophils % (0.8-7.0) % Basophils % (0.2-1.2) % Absolute Granulocytes (1.78-5.38) x10^3/uL Basophils # (0.01-0.08) x10^3/uL Sodium (135-145) mmol/L Potassium (3.5-5.1) mmol/L Chloride (98-107) mmol/L Carbon Dioxide (22-30) mmol/L Anion Gap (5-15) MEQ/L BUN (9-20) mg/dL Creatinine (0.66-1.25) mg/dL Estimated GFR ML/MIN Glucose (74-106) mg/dL Calcium (8.4-10.2) mg/dL Total Bilirubin (0.2-1.3) mg/dL AST (17-59) U/L ALT (0-50) U/L Alkaline Phosphatase (38-126) U/L Troponin I 0.015 (0.000-0.033) ng/mL NT-Pro-B Natriuret Pep (<300) pg/mL Serum Total Protein (6.3-8.2) g/dL Albumin (3.5-5.0) g/dL - Radiology Impressions Radiology Exams & Impressions: Radiology Procedures Category Date Time Status CHEST 1 VIEW (PORTABLE) Stat Exams 05/13/24 18:34 Completed - Other Procedures and Tests Respiratory Therapy 05/13/24 23:36 Respiratory Therapy Consult ROUTINE Assessment/Plan (1) Chest pain Current Visit: No Status: Acute Assessment & Plan: Chest pain recurrence after recent admission for bigeminy/palpitations after Holter 1. Admit to hospital under observation status 2. Restart beta elizabeth and titrate up 3. Pain control 4. DVT/GI prophylaxis 5. Monitor on telemetry 6. If stable, can be discharged with outpatient EPS eval for possible ablation Code(s): R07.9 - CHEST PAIN, UNSPECIFIED (2) COPD (chronic obstructive pulmonary disease) Current Visit: No Status: Acute Assessment & Plan: COPD stable at this time 1. Duonebs 2. Supplemental O2 3. Monitor sats (3) Hypertension Current Visit: No Status: Acute Assessment & Plan: Blood pressure under reasonable control 1. Continue bp meds 2. Low Na diet 3. Monitor blood pressure readings Code(s): I10 - ESSENTIAL (PRIMARY) HYPERTENSION Telemedicine Encounter - Telemedicine Encounter Telemedicine Encounter: "The entirety of this encounter was performed via Telemedicine" This visit was performed using real-time audio and video connection between my location and thepatients locationwith the assistance of a surrogateat the patients location. Written or verbal consent was obtained from the patient/guardian to perform this [facility]. Any patient questions regarding the telemedicine interaction were answered.
[2024-05-13] MEDS ORDERED: DUONEB 0.5-3 MG/3 ml Neb IH PRN (23:56)
[2024-05-13] MEDS ORDERED: Zofran 4 MG/2 ML VIAL IV PRN (23:56)
[2024-05-14] MEDS ORDERED: Hydromorphone 1 mg/ml Injection IV PRN (00:03)
[2024-05-14 03:17] LABS: Absolute Neutrophil Ct (ANC) 5.74 x10^3/uL (1.78-5.38); BASOPHIL % 0.9 % (0.2-1.2); Basophil (Absolute #) 0.09 x10^3/uL (0.01-0.08); Eosinophil % 2.8 % (0.8-7.0); Eosinophil (Absolute #) 0.28 x10^3/uL (0.04-0.54); Hematocrit 41.9 % (40.1-51.0); Hemoglobin 14.1 g/dL (13.7-17.5); IMMATURE GRAN # 0.02 x10^3u/L (0.001-0.031); IMMATURE GRAN % 0.2 % (0.001-0.429); Lymphocyte (Absolute #) 2.44 x10^3/uL (1.32-3.57); Lymphocytes % 24.8 % (21.8-53.1); Mean Cell Volume 91.9 fL (79.0-92.2); Mean Corpuscular Hemoglobin 30.9 pg (25.7-32.2); Mean Corpuscular Hgb Concent. 33.7 g/dL (32.3-36.5); Mean Platelet Volume 10.3 fL (9.4-12.4); Monocyte (Absolute #) 1.26 x10^3/uL (0.30-0.82); Monocytes % 12.8 % (5.3-12.2); Neutrophil % 58.5 % (34.0-67.9); Platelet Count 395 x10^3/uL (163-337); Red Blood Count 4.56 x10^6/uL (4.63-6.08); Red Cell Distribution Width 13.8 % (11.6-14.4); White Blood Count 9.8 x10^3/uL (4.23-9.07)
[2024-05-14 03:44] LABS: ALBUMIN 3.4 g/dL (3.5-5.0); ANION GAP 10.7 MEQ/L (5-15); BILIRUBIN,TOTAL 0.6 mg/dL (0.2-1.3); Calcium 8.5 mg/dL (8.4-10.2); Creatinine 1 1.14 mg/dL (0.66-1.25); EST GLOMERULAR FILTRATION RATE 70.1 ML/MIN; Potassium 3.9 mmol/L (3.5-5.1)
[2024-05-14] MEDS ORDERED: NON-FORMULARY ITEM (Atorvastatin Calcium [Atorvastatin Calcium] 20 MG Tablet) PO SCH (10:00)
[2024-05-14] MEDS: KEPPRA PO SCH (10:27)
[2024-05-14] MEDS: Ranexa 500 MG PO SCH (10:27)
[2024-05-14] MEDS: LASIX 20 MG PO SCH (10:27)
[2024-05-14] MEDS: PLAVIX Tablet PO SCH (10:27)
[2024-05-14] MEDS: Protonix 40MG Tablet PO SCH (10:27)
[2024-05-14] MEDS: Zestril 5 MG PO SCH (10:29)
[2024-05-14] MEDS: Lopressor 25MG Tab PO SCH (10:30)
--- NOTE | 2024-05-14 11:43 | PCM.NOTE ---
Date and Time: 05/14/24 6502 Subjective Assessment: HPI: Mr. LEUNG is a 68 year old male with a past medical history significant for hypertension, hyperlipidemia, COPD and previous admission for chest pain, palpitations/SVTs who was discharged on a Holter monitor with scheduled follow up with electrophysiology on 05/15 who returns to the hospital with worsening chest pain with palpitations and found to be in bigeminy. He was considered for transfer but no beds were available, so discussion was obtained with and [facility] cardiology who recommended admission to the hospital for initiation with beta blockers to be titrated up, then follow up with Dr. Gutiérrez for EPS eval as outpatient. He was given some IV pain meds and [facility] No fever/chills. No shortness of breath. No nausea, vomiting or diarrhea. No dysuria, hematuria or urgency. 05/14/24: Met with patient bedside. Endorses shortness of breath and continued chest pain. Metoprolol initiated. Patient has appt with EP cardiology tomorrow. Will observe overnight with the initiation of metoprolol. Most likely can discharge for appt in the morning. - Review of Systems Constitutional: No Symptoms Eyes: No Symptoms Ears, Nose, & Throat: No Symptoms Respiratory: Short Of Breath Cardiac: Chest Pain Abdominal/Gastrointestinal: No Symptoms Genitourinary Symptoms: No Symptoms Musculoskeletal: No Symptoms Skin: No Symptoms Neurological: No Symptoms Psychological: No Symptoms Endocrine: No Symptoms Hematologic/Lymphatic: No Symptoms Immunological/Allergic: No Symptoms Objective Exam General Appearance: no apparent distress Neurologic Exam: alert, oriented x 3, cooperative Skin Exam: normal color Eye Exam: PERRL Ears, Nose, Throat Exam: normal ENT inspection Neck Exam: normal inspection Respiratory Exam: normal breath sounds, lungs clear Cardiovascular Exam: irregular Gastrointestinal/Abdomen Exam: soft Extremity Exam: normal inspection Back Exam: normal inspection Male Genitalia Exam: deferred Rectal Exam: deferred Objective Data Vital Signs: Vital Signs - 24 hr Temp Pulse Resp BP BP Pulse Ox 05/14/24 08:00 96.9 F 46 L 16 134/78 92 L 05/14/24 07:05 72 18 93 L 05/14/24 03:55 97.9 F 55 L 18 93/53 93 L 05/14/24 01:04 60 18 93 L 05/14/24 00:43 93 L 05/13/24 23:59 97 F 57 L 18 143/62 95 05/13/24 23:10 76 18 120/61 96 05/13/24 22:31 75 19 150/60 93 L 05/13/24 22:01 79 20 143/77 94 L 05/13/24 22:00 83 17 98 05/13/24 21:50 79 23 96 05/13/24 21:40 78 21 97 05/13/24 21:33 83 21 96 05/13/24 21:11 78 19 164/82 98 05/13/24 21:10 78 20 99 05/13/24 21:03 77 21 98 05/13/24 20:31 76 24 121/64 98 05/13/24 20:05 75 17 139/81 100 05/13/24 20:04 70 18 99 05/13/24 20:00 71 18 97 05/13/24 19:50 82 17 97 05/13/24 19:40 79 16 96 05/13/24 19:33 77 16 95 05/13/24 19:01 79 18 166/71 93 L 05/13/24 18:33 84 26 H 129/81 99 05/13/24 18:19 88 24 148/98 98 05/13/24 18:15 98.8 F 91 H 148/98 98 Pain Assessment - Last Documented Pain Intensity 8 Pain Scale Used 0-10 Pain Scale Intake and Output: Intake & Output 05/11/24 05/12/24 05/13/24 05/14/24 11:59 11:59 11:59 11:59 Intake Total 570 Output Total 225 Balance 345 Weight 86.2 kg Lab Results: Lab Results-Last 24 Hours 05/13/24 05/13/24 05/13/24 Range/Units 18:30 18:30 18:30 WBC 12.9 H (4.23-9.07) x10^3/uL RBC 4.92 (4.63-6.08) x10^6/uL Hgb 15.1 (13.7-17.5) g/dL Hct 45.0 (40.1-51.0) % MCV 91.5 (79.0-92.2) fL MCH 30.7 (25.7-32.2) pg MCHC 33.6 (32.3-36.5) g/dL RDW 13.7 (11.6-14.4) % Plt Count 427 H (163-337) x10^3/uL MPV 10.2 (9.4-12.4) fL Gran % 72.4 H (34.0-67.9) % Immature Gran % (Auto) 0.3 (0.001-0.429) % Nucleat RBC Rel Count 0.0 (0.00-0.2) % Eos # (Auto) 0.24 (0.04-0.54) x10^3/uL Immature Gran # (Auto) 0.04 H (0.001-0.031) x10^3u/L Absolute Lymphs (auto) 2.00 (1.32-3.57) x10^3/uL Absolute Monos (auto) 1.19 H (0.30-0.82) x10^3/uL Absolute Nucleated RBC 0.00 (0.00-0.012) x10^3u/L Lymphocytes % 15.5 L (21.8-53.1) % Monocytes % 9.2 (5.3-12.2) % Eosinophils % 1.9 (0.8-7.0) % Basophils % 0.7 (0.2-1.2) % Absolute Granulocytes 9.38 H (1.78-5.38) x10^3/uL Basophils # 0.09 H (0.01-0.08) x10^3/uL Sodium 140 (135-145) mmol/L Potassium 4.5 (3.5-5.1) mmol/L Chloride 106 (98-107) mmol/L Carbon Dioxide 25 (22-30) mmol/L Anion Gap 13.1 (5-15) MEQ/L BUN 19 (9-20) mg/dL Creatinine 1.14 (0.66-1.25) mg/dL Estimated GFR 70.1 ML/MIN Glucose 111 H (74-106) mg/dL Calcium 9.0 (8.4-10.2) mg/dL Total Bilirubin 0.80 (0.2-1.3) mg/dL AST 43 (17-59) U/L ALT 39 (0-50) U/L Alkaline Phosphatase 73 (38-126) U/L Troponin I 0.015 (0.000-0.033) ng/mL NT-Pro-B Natriuret Pep 404 (<300) pg/mL Serum Total Protein 7.2 (6.3-8.2) g/dL Albumin 4.2 (3.5-5.0) g/dL 05/13/24 05/14/24 05/14/24 Range/Units 23:09 03:13 03:13 WBC 9.8 H (4.23-9.07) x10^3/uL RBC 4.56 L (4.63-6.08) x10^6/uL Hgb 14.1 (13.7-17.5) g/dL Hct 41.9 (40.1-51.0) % MCV 91.9 (79.0-92.2) fL MCH 30.9 (25.7-32.2) pg MCHC 33.7 (32.3-36.5) g/dL RDW 13.8 (11.6-14.4) % Plt Count 395 H (163-337) x10^3/uL MPV 10.3 (9.4-12.4) fL Gran % 58.5 (34.0-67.9) % Immature Gran % (Auto) 0.2 (0.001-0.429) % Nucleat RBC Rel Count 0.0 (0.00-0.2) % Eos # (Auto) 0.28 (0.04-0.54) x10^3/uL Immature Gran # (Auto) 0.02 (0.001-0.031) x10^3u/L Absolute Lymphs (auto) 2.44 (1.32-3.57) x10^3/uL Absolute Monos (auto) 1.26 H (0.30-0.82) x10^3/uL Absolute Nucleated RBC 0.00 (0.00-0.012) x10^3u/L Lymphocytes % 24.8 (21.8-53.1) % Monocytes % 12.8 H (5.3-12.2) % Eosinophils % 2.8 (0.8-7.0) % Basophils % 0.9 (0.2-1.2) % Absolute Granulocytes 5.74 H (1.78-5.38) x10^3/uL Basophils # 0.09 H (0.01-0.08) x10^3/uL Sodium (135-145) mmol/L Potassium (3.5-5.1) mmol/L Chloride (98-107) mmol/L Carbon Dioxide (22-30) mmol/L Anion Gap (5-15) MEQ/L BUN (9-20) mg/dL Creatinine (0.66-1.25) mg/dL Estimated GFR ML/MIN Glucose (74-106) mg/dL Calcium (8.4-10.2) mg/dL Total Bilirubin (0.2-1.3) mg/dL AST (17-59) U/L ALT (0-50) U/L Alkaline Phosphatase (38-126) U/L Troponin I 0.015 0.014 (0.000-0.033) ng/mL NT-Pro-B Natriuret Pep (<300) pg/mL Serum Total Protein (6.3-8.2) g/dL Albumin (3.5-5.0) g/dL 05/14/24 Range/Units 03:13 WBC (4.23-9.07) x10^3/uL RBC (4.63-6.08) x10^6/uL Hgb (13.7-17.5) g/dL Hct (40.1-51.0) % MCV (79.0-92.2) fL MCH (25.7-32.2) pg MCHC (32.3-36.5) g/dL RDW (11.6-14.4) % Plt Count (163-337) x10^3/uL MPV (9.4-12.4) fL Gran % (34.0-67.9) % Immature Gran % (Auto) (0.001-0.429) % Nucleat RBC Rel Count (0.00-0.2) % Eos # (Auto) (0.04-0.54) x10^3/uL Immature Gran # (Auto) (0.001-0.031) x10^3u/L Absolute Lymphs (auto) (1.32-3.57) x10^3/uL Absolute Monos (auto) (0.30-0.82) x10^3/uL Absolute Nucleated RBC (0.00-0.012) x10^3u/L Lymphocytes % (21.8-53.1) % Monocytes % (5.3-12.2) % Eosinophils % (0.8-7.0) % Basophils % (0.2-1.2) % Absolute Granulocytes (1.78-5.38) x10^3/uL Basophils # (0.01-0.08) x10^3/uL Sodium 141 (135-145) mmol/L Potassium 3.9 (3.5-5.1) mmol/L Chloride 107 (98-107) mmol/L Carbon Dioxide 27 (22-30) mmol/L Anion Gap 10.7 (5-15) MEQ/L BUN 18 (9-20) mg/dL Creatinine 1.14 (0.66-1.25) mg/dL Estimated GFR 70.1 ML/MIN Glucose 117 H (74-106) mg/dL Calcium 8.5 (8.4-10.2) mg/dL Total Bilirubin 0.60 (0.2-1.3) mg/dL AST 27 (17-59) U/L ALT 30 (0-50) U/L Alkaline Phosphatase 71 (38-126) U/L Troponin I (0.000-0.033) ng/mL NT-Pro-B Natriuret Pep 334 (<300) pg/mL Serum Total Protein 6.0 L (6.3-8.2) g/dL Albumin 3.4 L (3.5-5.0) g/dL Radiology Exams: Radiology Procedures Category Date Time Status CHEST 1 VIEW (PORTABLE) Stat Exams 05/13/24 18:34 Completed Multi-Disciplinary Progress Notes: Multi-Disciplinary Progress Notes 05/13/24 23:41 Respiratory Note by Michaela Veras Patient now being admitted here. 48hr holter monitor reconnected at this time. At time of reconnecting, holter monitor said 20:30 left of recording. Initialized on 05/13/24 23:41 - END OF NOTE 05/13/24 20:33 Respiratory Note by Michaela Veras Pt awaiting transfer to [facility]. I spoke with Dr. Terry regarding 48hour holter monitor that I set up on patient 05/12/24 at approx 1999. [address] Terry. Patient had monitor on for approx 24hrs. Initialized on 05/13/24 20:33 - END OF NOTE Assessment/Plan (1) Chest pain Current Visit: Yes Status: Acute Assessment & Plan: Chest pain recurrence after recent admission for bigeminy/palpitations after Holter - Restart beta elizabeth and titrate up - patient with episodes of bradycardia - will keep metoprolol at 12.5mg -Pain control - DVT/GI prophylaxis -Monitor on telemetry -Will observe overnight with the initiation of metoprolol -If stable, can be discharged with outpatient EPS eval for possible ablation - appt 05/15 Code(s): R07.9 - CHEST PAIN, UNSPECIFIED (2) COPD (chronic obstructive pulmonary disease) Current Visit: Yes Status: Acute Assessment & Plan: -On RA -CXR 05/13 with no acute findings -Supplemental oxygen as needed -NEB/INH prn (3) Bradycardia Current Visit: Yes Status: Acute Assessment & Plan: -Monitor closely on tele with the initiation of metoprolol Code(s): R00.1 - BRADYCARDIA, UNSPECIFIED
[2024-05-14] MEDS: XARELTO 10 MG TABLET PO SCH (16:50)
--- NOTE | 2024-05-14 19:01 | PCM.CONS ---
History of Present Illness - Date of Consult Date of Encounter: 05/14/24 [employer] Custodian: PARKER COX MD Requesting Provider: Attending Provider: ZENY BOATENG MD Primary Care Provider: PCP: STEWART KENDALL MD Consent was: Given for this tele-med encounter - Consult Narrative Reason for Consult: Chest pain HPI: Patient is a 68 year old incarcerated male with history of CAD S/P PCI, frequent ventricular ectopic activity including slow NSVT, paroxysmal atrial fibrillation on Eliquis, HTN, hyperlipidemia, COPD, tobacco abuse, and methamphetamine abuse (last used one year ago) who presents with chest pain after being discharged the day before with the same symptoms. He has been bothered by constant left sided chest discomfort for over a week which is reproducible with palpation. He was hospitalized from 05/10 - 05/12/2024. Serial cardiac enzymes were negative. He was noted to have frequent PVCs as well as 3-8 beat runs of slow ventricular tachycardia (100-118 bpm). A majority of the PVCs apeared to originate for the RV outflow tract. Echocardiogram revealed mildy depressed LV systolic function with an EF of 40-45%. He was treated with metoprolol which yielded a 4.5 and 3.4 second pauses; thus, metoprolol was discontinued. A 48 hour Holter monitor was placed at discharge to determine the PVC burden and evaluate for pauses off metoprolol. He has an appointment to see an electophysiologist tomorrow. His left sided chest pain continued after arriving back to [facility] on 05/12. He did not take any analgesics. He returned to our ER yesterday. Metoprolol was added this admission while wearing the holter monitor. There have not been any pauses since admission yesterday. His chest pain is reproducible with palpation. Serial cardiac enzymes are negative. Today, he also was bothered by pain in the back of his neck and left arm. This has happened once before in the past. cc:: The requesting physician will be sent a copy of the consult. Review of Systems - Review of Systems All systems: as per HPI - Past Medical History Past Medical History: Yes Neurological History: Stroke ENT History: No Pertinent History Cardiac History: Arrhythmia (Frequent CLIFTON including runs of slow ventricular tachycardia. Presumed paroxysmal atrial fibrillation (no documentation).), High Cholesterol, Hypertension Respiratory History: Asthma, COPD, Pneumonia Endocrine Medical History: No Pertinent History Musculoskelatal History: Arthritis, Fractures GI Medical History: No Pertinent History History: No Pertinent History Pyscho-Social History: No Pertinent History Male Reproductive Disorders: No Pertinent History Comment: pt is a poor historian, and unsure. Completed to best of ability. - Past Surgical History Past Surgical History: Yes Neuro Surgical History: No Pertinent History Cardiac History: No Pertinent History Respiratory Surgery: No Pertinent History GI Surgical History: No Pertinent History Genitourinary Surgical Hx: No Pertinent History Musculskeletal Surgical Hx: No Pertinent History Male Surgical History: No Pertinent History Other Surgical History: SPLEEN REMOVED-several years ago Significant Family History: no pertinent family hx - Social History Smoking Status: Current some day smoker How long have you smoked: YRS Exposure to second hand smoke: Yes Alcohol: None Drug Use: none - Social Determinants of Health Will the patient participate in the screening: Yes Do you worry about a steady place to live?: No Do you have any problems with any of the following?: No known problems In the past 12 months,have you had to go without utilities?: No Have you or anyone in your house had to go without enough: No Transportation Issues: No Has anyone in your support network made you feel unsafe?: No Does the patient want assistance with any of the above?: No Comment: INCARCERATED Medications & Allergies Home Medications: Home Medication List Atorvastatin Calcium 80 mg PO DAILY 09/22/23 [History Confirmed 05/14/24] Clopidogrel Bisulfate [Clopidogrel] 75 mg PO DAILY 05/10/24 [History Confirmed 05/14/24] Ranolazine 500 MG [Ranexa 500 MG] 500 mg PO BID 05/10/24 [History Confirmed 05/14/24] Rivaroxaban [Xarelto] 20 mg PO 1600 05/10/24 [History Confirmed 05/14/24] Furosemide 20 mg [Lasix 20 mg] 20 mg PO DAILY 05/12/24 [History Confirmed 05/14/24] Levetiracetam [Keppra] 500 mg PO BID 05/12/24 [History Confirmed 05/14/24] lisinopriL [Zestril] 2.5 mg PO QAM 05/12/24 [History Confirmed 05/14/24] Allergies/Adverse Reactions: Allergies Allergy/AdvReac Type Severity Reaction Status Date / Time Penicillins Allergy Verified 05/13/24 18:23 Exam - Vitals Vital Signs: Vital Signs - 24 hr Temp Pulse Resp BP BP Pulse Ox 05/14/24 16:00 97.7 F 62 18 106/56 93 L 05/14/24 12:00 97.3 F 59 L 18 128/76 92 L 05/14/24 08:00 96.9 F 46 L 16 134/78 92 L 05/14/24 07:05 72 18 93 L 05/14/24 03:55 97.9 F 55 L 18 93/53 93 L 05/14/24 01:04 60 18 93 L 05/14/24 00:43 93 L 05/13/24 23:59 97 F 57 L 18 143/62 95 05/13/24 23:10 76 18 120/61 96 05/13/24 22:31 75 19 150/60 93 L 05/13/24 22:01 79 20 143/77 94 L 05/13/24 22:00 83 17 98 05/13/24 21:50 79 23 96 05/13/24 21:40 78 21 97 05/13/24 21:33 83 21 96 05/13/24 21:11 78 19 164/82 98 05/13/24 21:10 78 20 99 05/13/24 21:03 77 21 98 05/13/24 20:31 76 24 121/64 98 05/13/24 20:05 75 17 139/81 100 05/13/24 20:04 70 18 99 05/13/24 20:00 71 18 97 05/13/24 19:50 82 17 97 05/13/24 19:40 79 16 96 05/13/24 19:33 77 16 95 05/13/24 19:01 79 18 166/71 93 L General:: no acute distress HEENT: EOMI, No JVD Cardiovascular Exam: normal heart sounds, irregular, No edema Respiratory Exam: chest tenderness (Reproduces his presenting chest discomfort.), lungs clear SpO2: 93 Gastrointestinal/Abdomen Exam: normal bowel sounds Extremity Exam: normal inspection Neurologic: sensory deficits (left arm and hand numbness), No motor deficits Results Vital Signs: Vital Signs - 24 hr Temp Pulse Resp BP BP Pulse Ox 05/14/24 16:00 97.7 F 62 18 106/56 93 L 05/14/24 12:00 97.3 F 59 L 18 128/76 92 L 05/14/24 08:00 96.9 F 46 L 16 134/78 92 L 05/14/24 07:05 72 18 93 L 05/14/24 03:55 97.9 F 55 L 18 93/53 93 L 05/14/24 01:04 60 18 93 L 05/14/24 00:43 93 L 05/13/24 23:59 97 F 57 L 18 143/62 95 05/13/24 23:10 76 18 120/61 96 05/13/24 22:31 75 19 150/60 93 L 05/13/24 22:01 79 20 143/77 94 L 05/13/24 22:00 83 17 98 05/13/24 21:50 79 23 96 05/13/24 21:40 78 21 97 05/13/24 21:33 83 21 96 05/13/24 21:11 78 19 164/82 98 05/13/24 21:10 78 20 99 05/13/24 21:03 77 21 98 05/13/24 20:31 76 24 121/64 98 05/13/24 20:05 75 17 139/81 100 05/13/24 20:04 70 18 99 05/13/24 20:00 71 18 97 05/13/24 19:50 82 17 97 05/13/24 19:40 79 16 96 05/13/24 19:33 77 16 95 05/13/24 19:01 79 18 166/71 93 L Pain Assessment - Last Documented Pain Intensity 8 Pain Scale Used 0-10 Pain Scale Intake and Output: Intake & Output 05/12/24 05/13/24 05/14/24 05/15/24 11:59 11:59 11:59 11:59 Intake Total 570 960 Output Total 225 600 Balance 345 360 Weight 86.2 kg LAB: I have reviewed the Labs in [email or web address]. Serial troponin-I 05/13/2024 - 05/14/2024: 0.015, 0.015, 0.014, <0.012 (normal 0.033 or less) Radiology Exams: Radiology Procedures Category Date Time Status CHEST 1 VIEW (PORTABLE) Stat Exams 05/13/24 18:34 Completed CARDIOLOGY ECGs 05/14/2024: NSR with frequent PVCs at [address] and T wave changes, consider high lateral ischemia. 05/13/2024: NSR wtih frequent PCs at [address] and T wave abnormality, consider high lateral ischemia. 05/12/2024 x2: Normal sinus rhythm with frequent PVCs including couplets and 3- beat run of ventricular tachycardia at [address] and T wave abnormality, consider lateral ischemia. No significant change compared to priior ECGs. 05/11/2024: Sinus bradycardia at 53 bpm with frequent PVCs. ST and T wave abnormality, consider anterolateral ischemia. 05/10/2024 x4 from 1141 - 1244: Sinus rhythm with frequent and consecutive PVCs including 3-4 beat runs of ventricular tachycardia/AIVR (94-111 bpm). Majority of PVCs with a LBBB morphology and inferior axis suggestive of a RVOT site of origin. ST and T wave abnormalities, consider high lateral ischemia. Telemetry 05/14/2024 at 0714: NSR with frequent PVCs in a pattern of trigeminy at 63 bpm. 05/12/2024: 6 beat run of NSVT at 118 bpm 05/11/2024 at 1000: 3.4 second pause including a nonconducted P wave. 05/11/2024 at 0840: 4.5 second pause with a possible nonconducted P wave. TTE 09/23/2023: 1. Normal LV size. 2. Mildly reduced left ventricular function. 3. Left ventricular ejection fraction estimated by 2D at 40-45 percent. 4. Resting regional wall motion abnormalities of the septum. 5. Normal right ventricular size and function. 6. There is no significant pericardial effusion. Per my review. Mild to moderately decreased LV systolic function due to mild to moderate global hypokinesis. EF 40%. RADIOLOGY CXR (AP) 05/13/2024: [facility] MRI of Brain without contrast 05/12/2024: Atrophy, degenerative micro-ischemia, small remote right parietal infarct, and multiple remote bilateral basal ganglia lacunar infarcts. Findings concordant with same day CT exam. No acute intracranial abnormalities or evidence for evolving large vessel territorial stroke. Multi-Disciplinary Progress Notes: Multi-Disciplinary Progress Notes 05/13/24 23:41 Respiratory Note by Michaela Veras Patient now being admitted here. 48hr holter monitor reconnected at this time. At time of reconnecting, holter monitor said 20:30 left of recording. Initialized on 05/13/24 23:41 - END OF NOTE 05/13/24 20:33 Respiratory Note by Michaela Veras Pt awaiting transfer to [facility]. I spoke with Dr. Terry regarding 48hour holter monitor that I set up on patient 05/12/24 at approx 2000. [address] Terry. Patient had monitor on for approx 24hrs. Initialized on 05/13/24 20:33 - END OF NOTE Assessment & Plan (1) Chest pain Current Visit: Yes Status: Acute Assessment & Plan: Musculoskeletal in etiology based on his exam. Treat with analgesics. Code(s): R07.9 - CHEST PAIN, UNSPECIFIED (2) Bradycardia Current Visit: No Status: Acute Assessment & Plan: Two pauses of 4.5 and 3.4 seconds documented on recent admission. Discontinue metoprolol. Verbal order given to RN earlier this afternoon when consult first submitted. Holter monitor in place. Code(s): R00.1 - BRADYCARDIA, UNSPECIFIED (3) Ventricular ectopy Current Visit: No Status: Acute Assessment & Plan: Frequent CLIFTON including slow VT on recent hospitalization. Majority appear to arise from the RV outflow tract. Holter monitor in place. Follow-up with EP tomorrow as scheduled at 1400. Code(s): I49.3 - VENTRICULAR PREMATURE DEPOLARIZATION (4) Left arm pain Current Visit: Yes Status: Acute Assessment & Plan: Left arm numbness secondary to prior stroke. Left arm and neck pain possibly related to C-spine disease. Consider outpatient evaluation so that patient can make his EP appointment tomorrow. Code(s): M79.602 - PAIN IN LEFT ARM - Encounter Encounter: "The entirety of this encounter was performed via Telemedicine using audio and visual " Permission given by patient for this type of encounter. Case discussed with Kia Jasso NP Patient may be discharged at any time from the cardiac standpoint. Parker Cox MD [employer] [phone]
[2024-05-14] MEDS: ZOCOR 20MG PO SCH (21:53)
[2024-05-14] MEDS: TYLENOL 325 MG PO PRN (21:57)
--- NOTE | 2024-05-15 05:41 | PCM.DS ---
Discharge Summary Date of Admission: 05/13/24 23:34 Date of Discharge: 05/15/24 Admitting Physician: ZENY BOATENG MD Consults: Consults on Case 05/14/24 13:58 Consult Cardiology ROUTINE Primary Care Provider: STEWART KENDALL MD Allergies Allergies Penicillins Allergy (Verified 05/13/24 18:23) Hospital Summary - Hospital Course Hospital Course: Mr. Muñoz is a 68 year old incarcerated male with history of CAD S/P PCI, frequent ventricular ectopic activity including slow NSVT, paroxysmal atrial fibrillation on Eliquis, HTN, hyperlipidemia, COPD, tobacco abuse, and methamphetamine abuse (last used one year ago) who presented 05/13/24 to ED with chest pain after being discharged the day before with the same symptoms. He has been bothered by constant left sided chest discomfort for over a week which is reproducible with palpation. He was hospitalized from 05/10 - 05/12/2024. Cardiol jt at [facility] recommended hospitalization for initiation of beta blockers. These were stared last night and patient does have bradycardia today but does not have symptoms from bradycardia. Serial cardiac enzymes were negative. He was noted to have frequent PVCs as well as 3-8 beat runs of slow ventricular tachycardia (100-118 bpm). A majority of the PVCs apeared to originate for the RV outflow tract. Echocardiogram revealed mildy depressed LV systolic function with an EF of 40-45%. He was treated with metoprolol which yielded a 4.5 and 3.4 second pauses; thus, metoprolol was discontinued. A 48 hour Holter monitor was placed at discharge to determine the PVC burden and evaluate for pauses off metoprolol. He has an appointment to see an electophysiologist 05/15/24. Cardiology has evaluated patient with recommendations to discontinue metoprolol and follow up with EP- he can be discharged today Discharge Note New Diagnosis: Chest pain New Medications: Metoprolol discontinued Follow Up: EP cardiology today I spent 35 minutes [id number] with the patient on the day of discharge performing discharge exam, discussing hospital stay and discharge instructions with patient and caregivers, preparation of discharge records, prescriptions & referral forms and addressing any questions/concerns the patient had as documented above.. - Vitals & Intake/Output Vital Signs: Vital Signs Temperature 97.0 F 05/15/24 04:00 Pulse Rate 64 05/15/24 04:00 Respiratory Rate 20 05/15/24 04:00 Blood Pressure 120/70 05/15/24 04:00 O2 Sat by Pulse Oximetry 93 L 05/15/24 04:00 Intake & Output: Intake & Output 05/12/24 05/13/24 05/14/24 05/15/24 11:59 11:59 11:59 11:59 Intake Total 570 960 Output Total 225 1250 Balance 345 -290 Weight 86.2 kg - Lab Result Diagrams: 05/15/24 05:18 05/15/24 05:18 Lab Results-Last 24 Hrs: Lab Results-Last 24 Hours 05/14/24 Range/Units 14:10 Troponin I < 0.012 (0.000-0.033) ng/mL - Radiology Exams Ordered Rad Exams-Entire Visit: Radiology Procedures Category Date Time Status CHEST 1 VIEW (PORTABLE) Stat Exams 05/13/24 18:34 Completed - Procedures and Test Procedures and Tests throughout Hospitalization: Therapy Orders & Screens 05/13/24 23:36 Respiratory Therapy Consult ROUTINE Comment: Reason For Exam: 05/14/24 07:05 Respiratory Therapy Assessment DAILY Comment: Diagnosis: Angina/Unsustained Vtach 05/14/24 13:57 EKG STAT Comment: Diagnosis: Angina/Unsustained Vtach Discharge Exam General Appearance: no apparent distress Neurologic Exam: alert, oriented x 3, cooperative Eye Exam: PERRL Ears, Nose, Throat Exam: normal ENT inspection Neck Exam: normal inspection Respiratory Exam: normal breath sounds, lungs clear Cardiovascular Exam: irregular Gastrointestinal/Abdomen Exam: soft, normal bowel sounds Male Genitalia Exam: deferred Rectal Exam: deferred Back Exam: normal inspection Extremity Exam: normal inspection Skin Exam: normal color Final Diagnosis/Problem List - Final Discharge Diagnosis/Problem (1) Chest pain Current Visit: Yes Status: Acute Code(s): R07.9 - CHEST PAIN, UNSPECIFIED (2) COPD (chronic obstructive pulmonary disease) Current Visit: Yes Status: Acute (3) Bradycardia Current Visit: Yes Status: Acute Code(s): R00.1 - BRADYCARDIA, UNSPECIFIED - Discharge Discharge Date: 05/15/24 Disposition: Home, Self-Care Condition: Stable Prescriptions: Continue Atorvastatin Calcium 80 mg PO DAILY Rivaroxaban [Xarelto] 20 mg PO 1600 Ranolazine 500 MG [Ranexa 500 MG] 500 mg PO BID Clopidogrel Bisulfate [Clopidogrel] 75 mg PO DAILY Furosemide 20 mg [Lasix 20 mg] 20 mg PO DAILY Levetiracetam [Keppra] 500 mg PO BID Discontinued lisinopriL [Zestril] 2.5 mg PO QAM Follow up with: STEWART KENDALL MD [Primary Care Provider] -
[2024-05-15 05:43] LABS: Absolute Neutrophil Ct (ANC) 5.09 x10^3/uL (1.78-5.38); BASOPHIL % 1.2 % (0.2-1.2); Basophil (Absolute #) 0.11 x10^3/uL (0.01-0.08); Eosinophil % 4.1 % (0.8-7.0); Eosinophil (Absolute #) 0.38 x10^3/uL (0.04-0.54); Hematocrit 44.9 % (40.1-51.0); Hemoglobin 14.8 g/dL (13.7-17.5); IMMATURE GRAN # 0.03 x10^3u/L (0.001-0.031); IMMATURE GRAN % 0.3 % (0.001-0.429); Lymphocyte (Absolute #) 2.79 x10^3/uL (1.32-3.57); Lymphocytes % 29.8 % (21.8-53.1); Mean Cell Volume 92.2 fL (79.0-92.2); Mean Corpuscular Hemoglobin 30.4 pg (25.7-32.2); Mean Platelet Volume 10.4 fL (9.4-12.4); Monocyte (Absolute #) 0.95 x10^3/uL (0.30-0.82); Monocytes % 10.2 % (5.3-12.2); Neutrophil % 54.4 % (34.0-67.9); Platelet Count 424 x10^3/uL (163-337); Red Blood Count 4.87 x10^6/uL (4.63-6.08); Red Cell Distribution Width 13.8 % (11.6-14.4); White Blood Count 9.4 x10^3/uL (4.23-9.07)
[2024-05-15 06:10] LABS: ALBUMIN 3.9 g/dL (3.5-5.0); ANION GAP 13.7 MEQ/L (5-15); BILIRUBIN,TOTAL 0.7 mg/dL (0.2-1.3); Calcium 8.6 mg/dL (8.4-10.2); Creatinine 1 1.15 mg/dL (0.66-1.25); EST GLOMERULAR FILTRATION RATE 69.3 ML/MIN; Total Protein 6.7 g/dL (6.3-8.2)
[2024-05-15 12:01] VITALS: RESP 16
[2024-05-15 16:40] VITALS: BP 140/66; PULSE 60; TEMP 97.9; O2SAT 94
== END 2024-05-15 16:50 | disposition home or self-care (01) ==
LOC: ED 18:11 → EEVIPCON 18:11 → MED SURG 23:34
PROVIDERS: ADMIT Internal Medicine Nephrology; ATTEND Internal Medicine Nephrology
DX: R07.9 Chest pain, unspecified (principal); I49.3 Ventricular premature depolarization; M79.602 Pain in left arm; R00.1 Bradycardia, unspecified; I25.10 Atherosclerotic heart disease of native coronary artery without angina pectoris; I48.91 Unspecified atrial fibrillation; I10 Essential (primary) hypertension; E78.5 Hyperlipidemia, unspecified; J44.9 Chronic obstructive pulmonary disease, unspecified; F17.200 Nicotine dependence, unspecified, uncomplicated; Z79.01 Long term (current) use of anticoagulants; Z79.899 Other long term (current) drug therapy
CPT/HCPCS: 36415; 71045; 80053; 83880; 84484; 85025; 93005; 93041; 94760; 96374; 96375; 99285; Q3014; J2405; J3010; A9270-GY; J3475